=== PATIENT | male | born 1950 | race Caucasian/White ===

== ENCOUNTER → 2018-05-17 10:55 | Outpatient (CLI) | payer MEDICARE, OTHER, SELFPAY ==
--- NOTE | 2018-05-17 | DI.CT.S_ITS ---
PROCEDURE: CT ABDOMEN WWO PELVIS W INDICATIONS: ABNORMAL CYST ON LIVER TECHNIQUE: After the administration of oral contrast, 5 mm thick sections acquired from the diaphragms to the iliac crests. After the administration of intravenous contrast, 5 mm thick sections acquired from the diaphragms to the symphysis. 5 mm thick coronal and sagittal reformats were acquired. For radiation dose reduction, the following was used: automated exposure control, adjustment of mA and/or kV according to patient size. COMPARISON: Outside Facility, , CT ABDOMEN/PELVIS WITH CONTRAST, 03/25/2018, 12:19. FINDINGS: Image quality: Excellent. ABDOMEN: Lung bases: Lung bases are clear except for mild atelectasis at each lung base posteriorly, right slightly greater than left.. Heart size is normal. Solid organs: Liver is normal in size and enhancement, and there has been resolution of the scattered subcentimeter hypodensities within the hepatic parenchyma with reference to the outside comparison CT scan from 03/25/18. There is a single identified water density subcentimeter cyst at the anterior right hepatic segment inferiorly. No solid hepatic mass lesion is found. Gallbladder has been previously resected. Biliary system is non-dilated. Pancreas enhances normally. Spleen is normal in size and enhancement. No adrenal nodules. Both kidneys are normal in size. No hydronephrosis or nephrolithiasis. Bowel and peritoneum: Stomach, small and large bowel loops are normal in caliber and wall thickness. No free fluid or air. Nodes and vessels: No retroperitoneal or mesenteric adenopathy by size criteria. Aorta and inferior vena are normal in caliber. Miscellaneous: No ventral hernias. PELVIS: Genitourinary: Bladder wall thickness is normal. Miscellaneous: No inguinal hernias or adenopathy. The appendix is prominent in transverse dimension at 11 mm, previously having measured at 13 mm. Bones: No suspicious bony lesions. No vertebral body compression fractures. IMPRESSION: 1. The liver parenchyma previously in February of this year had shown small scattered subcentimeter hypodensities that measured higher than water in radiodensity, scattered through the liver parenchyma, but those have resolved. This presumably reflective of an inflammatory process/infection at time of prior CT scanning. 2. There is a single subcentimeter cyst measuring water density at the inferior aspect of the right anterior hepatic segment. No solid hepatic lesion is found. 3. Prior cholecystectomy. Incidental note is made of the appendix measuring up to 11 mm in maximal axial dimension, previously having measured 13 mm in transverse dimension in February of this year. No appendiceal mass or retention of fluid within the appendix is seen and there is no adjacent inflammation along the appendiceal margins. Dictated by: Louie Ramos M.D. on 05/17/2018 at 12:31 Approved by: Louie Ramos M.D. on 05/17/2018 at 12:39
[2018-05-17 11:45] LABS: BUN Creatinine Ratio 18.2 (6-22); Blood Urea Nitrogen 20 mg/dL (9-20); Estimated Glomerular Filt Rate > 60.0 mL/min (>60)
== END ==
PROVIDERS: Visit Provider Internal Medicine
DX: K76.89 Other specified diseases of liver (principal); R93.2 Abnormal findings on diagnostic imaging of liver and biliary tract; Z90.49 Acquired absence of other specified parts of digestive tract
CPT/HCPCS: 36415; 74178; 82565; 84520; Q9967

== ENCOUNTER → 2018-07-20 08:20 | Outpatient (CLI) | payer MEDICARE, OTHER, SELFPAY ==
[2018-07-20 10:06] LABS: Alanine Aminotransferase 42 IU/L (21-72); Albumin 4.3 g/dL (3.5-5.0); Albumin Globulin Ratio 1.5 (1.0-2.8); Alkaline Phosphatase 88 U/L (38-126); Aspartate Aminotransferase 29 IU/L (17-59); BUN Creatinine Ratio 15.5 (6-22); Bilirubin Total 0.7 mg/dL (0.2-1.3); Blood Urea Nitrogen 17 mg/dL (9-20); Calcium 9.5 mg/dL (8.4-10.2); Carbon Dioxide 25 mmol/L (22-32); Chloride 107 mmol/L (98-107); Cholesterol 137 mg/dL (140-199); Estimated Glomerular Filt Rate > 60.0 mL/min (>60); Globulin 2.9 g/dL (1.7-4.1); Glucose 99 mg/dL (80-110); HDL Cholesterol 46 mg/dL (40-60); HEMOLYSIS < 15 (0-50); LDL Cholesterol Calculated 65 mg/dL (<100); Potassium 4.4 mmol/L (3.4-5.1); Sodium 144 mmol/L (137-145); Total Protein 7.2 g/dL (6.3-8.2); Triglycerides 131 mg/dL (35-150)
== END ==
PROVIDERS: PCP Internal Medicine; Visit Provider Internal Medicine Cardiovascular Disease
DX: E78.5 Hyperlipidemia, unspecified (principal)
CPT/HCPCS: 36415; 80053; 80061

== ENCOUNTER → 2019-04-25 07:59 | Outpatient (CLI) | payer MEDICARE, OTHER, SELFPAY ==
[2019-04-25 09:46] LABS: Alanine Aminotransferase 24 IU/L (21-72); Albumin 4.3 g/dL (3.5-5.0); Albumin Globulin Ratio 1.3 (1.0-2.8); Alkaline Phosphatase 90 U/L (38-126); Aspartate Aminotransferase 28 IU/L (17-59); BUN Creatinine Ratio 17.3 (6-22); Bilirubin Total 0.8 mg/dL (0.2-1.3); Blood Urea Nitrogen 19 mg/dL (9-20); Calcium 9.9 mg/dL (8.4-10.2); Carbon Dioxide 26 mmol/L (22-32); Chloride 104 mmol/L (98-107); Cholesterol 258 mg/dL (140-199); Estimated Glomerular Filt Rate > 60.0 mL/min (>60); Globulin 3.4 g/dL (1.7-4.1); Glucose 99 mg/dL (80-110); HDL Cholesterol 39 mg/dL (40-60); HEMOLYSIS < 15 (0-50); LDL Cholesterol Calculated 172 mg/dL (<100); Potassium 4.5 mmol/L (3.4-5.1); Sodium 140 mmol/L (137-145); Total Protein 7.7 g/dL (6.3-8.2); Triglycerides 236 mg/dL (35-150)
[2019-04-25 10:31] LABS: Hep C Virus Ab w/Reflex Quant NEGATIVE s/c (NEGATIVE)
== END ==
PROVIDERS: PCP Internal Medicine; Visit Provider Internal Medicine
DX: I25.10 Atherosclerotic heart disease of native coronary artery without angina pectoris (principal); E78.00 Pure hypercholesterolemia, unspecified
CPT/HCPCS: 36415; 80053; 80061; 86803

== ENCOUNTER → 2019-06-27 11:19 | Outpatient (CLI) | payer MEDICARE, OTHER, SELFPAY ==
--- NOTE | 2019-06-27 | DI.US.S_ITS ---
PROCEDURE: US CAROTID DOPPLER BI INDICATIONS: OCCLUSION/STENOSIS OF CAROTID ARTERIES TECHNIQUE: Color and pulse Doppler interrogation was performed of both carotid systems, with image documentation and velocity measurements. COMPARISON: [facility], CT, CT ABDOMEN WWO PELVIS W, 05/17/2018, 11:59. FINDINGS: Stenosis calculations are based on SRU (Society of Radiologists in Ultrasound) criteria. Right side: Brachial blood pressure: 131/78 mm Hg. Common carotid artery peak systolic velocity: 99 cm/sec. Internal carotid artery peak systolic velocity: 88 cm/sec. Internal carotid artery end diastolic velocity: 29 cm/sec. External carotid artery peak systolic velocity: 97 cm/sec. ICA/CCA peak systolic ratio: 0.89. Cabrera scale imaging description: Minimal plaquing Percent internal carotid artery stenosis: Less than 50%. Vertebral artery: Flow direction is antegrade. Left side: Brachial blood pressure: 138/76 mm Hg. Common carotid artery peak systolic velocity: 88 cm/sec. Internal carotid artery peak systolic velocity: 77 cm/sec. Internal carotid artery end diastolic velocity: 13 cm/sec. External carotid artery peak systolic velocity: 98 cm/sec. ICA/CCA peak systolic ratio: 0.87. Cabrera scale imaging description: Minimal plaquing Percent internal carotid artery stenosis: Less than 50%. Vertebral artery: Flow direction is antegrade. IMPRESSION: Less than 50% internal carotid artery stenosis bilaterally. Dictated by: Renetta Chung M.D. on 06/27/2019 at 12:15 Approved by: Renetta Chung M.D. on 06/27/2019 at 12:19
== END ==
PROVIDERS: PCP Internal Medicine; Visit Provider Internal Medicine Cardiovascular Disease
DX: I65.23 Occlusion and stenosis of bilateral carotid arteries (principal)
CPT/HCPCS: 93880

== ENCOUNTER → 2019-08-02 08:00 | Outpatient (CLI) | payer MEDICARE, OTHER, SELFPAY ==
[2019-08-02 10:01] LABS: Cholesterol 283 mg/dL (140-199); HDL Cholesterol 39 mg/dL (40-60); LDL Cholesterol Calculated 190 mg/dL (<100); Triglycerides 269 mg/dL (35-150)
== END ==
PROVIDERS: PCP Internal Medicine; Visit Provider Internal Medicine Cardiovascular Disease
DX: I10 Essential (primary) hypertension (principal)
CPT/HCPCS: 36415; 80061

== ENCOUNTER → 2019-10-18 08:47 | Outpatient (CLI) | payer MEDICARE, OTHER, SELFPAY ==
[2019-10-18 10:11] LABS: Alanine Aminotransferase 24 IU/L (<50); Albumin 4.4 g/dL (3.5-5.0); Albumin Globulin Ratio 1.4 (1.0-2.8); Alkaline Phosphatase 97 U/L (38-126); Aspartate Aminotransferase 29 IU/L (17-59); BUN Creatinine Ratio 19.1 (6-22); Bilirubin Total 0.7 mg/dL (0.2-1.3); Blood Urea Nitrogen 21 mg/dL (9-20); Calcium 10.1 mg/dL (8.4-10.2); Carbon Dioxide 27 mmol/L (22-32); Chloride 105 mmol/L (98-107); Cholesterol 149 mg/dL (140-199); Estimated Glomerular Filt Rate > 60.0 mL/min (>60); Globulin 3.2 g/dL (1.7-4.1); Glucose 103 mg/dL (80-110); HDL Cholesterol 42 mg/dL (40-60); HEMOLYSIS < 15 (0-50); LDL Cholesterol Calculated 74 mg/dL (<100); Potassium 4.7 mmol/L (3.4-5.1); Sodium 140 mmol/L (137-145); Total Protein 7.6 g/dL (6.3-8.2); Triglycerides 164 mg/dL (35-150)
== END ==
PROVIDERS: PCP Internal Medicine; Referring Provider Internal Medicine Cardiovascular Disease; Visit Provider Internal Medicine Cardiovascular Disease
DX: I10 Essential (primary) hypertension (principal)
CPT/HCPCS: 36415; 80053; 80061

== ENCOUNTER → 2019-11-27 08:55 | Outpatient (CLI) | payer MEDICARE, OTHER, SELFPAY ==
--- NOTE | 2019-11-27 | DI.MRI.S_ITS ---
PROCEDURE: MR LUMBAR SPINE WO CON INDICATIONS: Low back pain TECHNIQUE: Noncontrast sagittal T1 spin echo and T2 fast echo, sagittal STIR, axial T1 and T2 fast spin echo through the lumbar spine. Axial and oblique coronal T1 spin echo and STIR through the sacrum. In cases with scoliosis, additional coronal T2 fast spin echo may be performed. COMPARISON: [facility], CT, CT ABDOMEN WWO PELVIS W, 05/17/2018, 11:59. Outside Facility, RG, CT ABDOMEN/PELVIS WITH CONTRAST, 03/25/2018, 12:19. [facility], CR, L-SPINE 2-3 VIEWS, 12/03/2017, 12:15. FINDINGS: Image quality: Excellent. Alignment and Curvature: There is normal bony alignment. Bone Marrow: Marrow is of normal overall signal. No acute vertebral body compression fractures. No sacral fractures. Spinal Cord: Conus medullaris terminates at the L1 level. Visualized cord demonstrates normal signal and size. Paraspinous Soft Tissues: No paravertebral masses. T12-L1: Mild loss of disc height is seen. Loss of disc signal is seen. No significant neural foraminal or central canal narrowing can be seen. L1-L2: Mild loss of disc height is seen. Loss of disc signal is seen. No significant neural foraminal or central canal narrowing can be seen. L2-L3: Mild loss of disc height is seen. Loss of disc signal is seen. Olio-wv-whmwydgk disc bulge is seen, which is eccentric to the right. There is a central disc protrusion. A chronic appearing Schmorl's node can be seen along the posterior aspect of the L2 vertebral body. Mild facet joint hypertrophy is seen. There is at least moderate left-sided and moderate right-sided neural foraminal narrowing seen. Moderate central canal narrowing is seen. L3-L4: Moderate loss of disc height is seen. Loss of disc signal is seen. Moderate disc bulge is seen, which is eccentric to the left. A central disc protrusion can be seen. Mild facet joint hypertrophy is seen. There is moderate right-sided and moderate to severe left-sided neural foraminal narrowing seen. There is a degree of compression seen upon the exiting left L3 nerve root. At least moderate central canal narrowing is seen. L4-L5: Moderate loss of disc height is seen. Loss of disc signal is seen. A remote Schmorl's node can be seen along the posterior aspect of the inferior endplate of L4, as on series 3 image 9. Moderate disc bulge is seen, which is eccentric to the right. There is a central/left disc extrusion seen, with superior migration of the disc material, as on series 2 image 11. Moderate facet hypertrophy is seen, with associated moderate hypertrophy of the ligamentum flavum. Fluid is seen within the facet joints themselves. Moderate to severe bilateral neural foraminal narrowing is seen, right worse than left. There is a degree of compression seen upon the exiting nerve roots. Moderate to severe central canal narrowing is seen. L5-S1: Moderate loss of disc height is seen. Loss of disc signal is seen. A moderate disc bulge is seen. Bcsw-xc-robrbigg facet hypertrophy is seen. There is moderate to severe bilateral neural foraminal narrowing seen, right worse than left. There is a degree of compression seen upon the exiting nerve roots. Mild central canal narrowing is seen. Sacrum: Fatty metaplasia can be seen involving the sacrum. Sacral neural foramina appear normal throughout. Superior to the piriformis muscles, the pre-plexal structures appear normal, including the lumbosacral trunk and S1 root. Just anterior to the piriformis muscles, the sacral plexus proper demonstrates normal morphology (lumbosacral trunk, S1 to S3 nerve roots). Inferior to the piriformis muscles, the sciatic nerves appear normal. IMPRESSION: Multiple levels of lumbar spine degenerative change are seen, which are overall most prominent at L4-L5 level, where there is a central/left disc extrusion seen. Moderate to severe bilateral neural foraminal narrowing can be seen at L4-L5 and at L5-S1. No significant sacral abnormality is seen. Dictated by: John Saavedra M.D. on 11/27/2019 at 9:43 Approved by: John Saavedra M.D. on 11/27/2019 at 9:50
== END ==
PROVIDERS: PCP Internal Medicine; Referring Provider Internal Medicine; Visit Provider Physician Assistant
DX: M47.816 Spondylosis without myelopathy or radiculopathy, lumbar region (principal); M51.26 Other intervertebral disc displacement, lumbar region; M48.061 Spinal stenosis, lumbar region without neurogenic claudication; M48.07 Spinal stenosis, lumbosacral region
CPT/HCPCS: 72148

== ENCOUNTER → 2020-01-12 11:37 | Outpatient (CLI) | payer MEDICARE, OTHER, SELFPAY ==
[2020-01-12 12:20] LABS: Add Manual Diff / Slide Review NO; Basophils Absolute Auto 100 /uL (0-100); Eosinophils Absolute Auto 400 /uL (0-450); Eosinophils Percent Auto 4.3 % (2-4); Hematocrit 47.3 % (41-53); Hemoglobin 15.9 g/dL (13.5-17.5); Lymphocytes Absolute Auto 2600 /uL (1100-4500); Lymphocytes Percent Auto 27.4 % (25-40); Mean Corpuscular HGB Conc 33.6 % (30-36); Mean Corpuscular Hemoglobin 29.8 PG (26-34); Mean Corpuscular Volume 88.7 fL (80-100); Monocytes Absolute Auto 700 /uL (0-900); Monocytes Percent Auto 7.5 % (3-14); Neutrophils Absolute Auto 5600 /uL (1500-7000); Neutrophils Percent Auto 59.8 % (50-75); Platelet Count 213 X10^3/uL (150-400); Red Blood Cell Count 5.34 X10^6/uL (4.5-5.9); Red Cell Distribution Width 14.9 % (11.6-14.8); White Blood Cell Count 9.4 X10^3/uL (4.5-11.0)
[2020-01-12 12:27] LABS: INR 2.8 (0.9-1.3); Prothrombin Time 32.2 SECONDS (10.1-12.7)
[2020-01-12 12:30] LABS: PTT Partial Thromboplastin Tim 48 SECONDS (26.4-36.2)
[2020-01-12 12:35] LABS: Alanine Aminotransferase 22 IU/L (<50); Albumin 4.5 g/dL (3.5-5.0); Albumin Globulin Ratio 1.4 (1.0-2.8); Alkaline Phosphatase 86 U/L (38-126); Aspartate Aminotransferase 27 IU/L (17-59); BUN Creatinine Ratio 20.4 (6-22); Bilirubin Total 0.8 mg/dL (0.2-1.3); Blood Urea Nitrogen 23 mg/dL (9-20); Calcium 10.2 mg/dL (8.4-10.2); Carbon Dioxide 28 mmol/L (22-32); Chloride 102 mmol/L (98-107); Estimated Glomerular Filt Rate > 60.0 mL/min (>60); Globulin 3.3 g/dL (1.7-4.1); Glucose 91 mg/dL (80-110); HEMOLYSIS < 15 (0-50); Potassium 4.3 mmol/L (3.4-5.1); Sodium 138 mmol/L (137-145); Total Protein 7.8 g/dL (6.3-8.2)
== END ==
PROVIDERS: PCP Internal Medicine; Referring Provider Internal Medicine; Visit Provider Internal Medicine
DX: Z01.818 Encounter for other preprocedural examination (principal); M51.26 Other intervertebral disc displacement, lumbar region
CPT/HCPCS: 36415; 80053; 85025; 85610; 85730

== ENCOUNTER → 2020-01-21 09:54 | Outpatient (CLI) | payer MEDICARE, OTHER, SELFPAY | PROVIDERS: PCP Internal Medicine; Visit Provider Physician Assistant | DX: Z01.818 Encounter for other preprocedural examination (principal) | CPT/HCPCS: 87797 ==

== ENCOUNTER → 2020-01-23 09:09 | Outpatient (CLI) | payer MEDICARE, OTHER, SELFPAY ==
[2020-01-24 09:51] LABS: COVID19 Sendout Not Detected (Not Detect)
== END ==
PROVIDERS: PCP Internal Medicine; Visit Provider Registered Nurse
DX: Z01.818 Encounter for other preprocedural examination (principal)
CPT/HCPCS: 87635

== ENCOUNTER → 2020-03-13 10:57 | Outpatient (CLI) | payer MEDICARE, OTHER, SELFPAY ==
[2020-03-13 13:58] LABS: Alanine Aminotransferase 18 IU/L (<50); Albumin 3.8 g/dL (3.5-5.0); Albumin Globulin Ratio 1.5 (1.0-2.8); Alkaline Phosphatase 73 U/L (38-126); Aspartate Aminotransferase 26 IU/L (17-59); Bilirubin Total 0.7 mg/dL (0.2-1.3); Blood Urea Nitrogen 26 mg/dL (9-20); Calcium 10.1 mg/dL (8.4-10.2); Carbon Dioxide 28 mmol/L (22-32); Chloride 104 mmol/L (98-107); Cholesterol 141 mg/dL (140-199); Estimated Glomerular Filt Rate > 60.0 mL/min (>60); Globulin 2.5 g/dL (1.7-4.1); Glucose 82 mg/dL (80-110); HDL Cholesterol 43 mg/dL (40-60); HEMOLYSIS < 15 (0-50); LDL Cholesterol Calculated 57 mg/dL (<100); Potassium 3.8 mmol/L (3.4-5.1); Sodium 137 mmol/L (137-145); Total Protein 6.3 g/dL (6.3-8.2); Triglycerides 205 mg/dL (35-150)
== END ==
PROVIDERS: Family Provider Internal Medicine; PCP Internal Medicine; Referring Provider Internal Medicine Cardiovascular Disease; Visit Provider Internal Medicine Cardiovascular Disease
DX: E78.5 Hyperlipidemia, unspecified (principal); I10 Essential (primary) hypertension
CPT/HCPCS: 36415; 80053; 80061

== ENCOUNTER → 2020-03-25 06:51 | Outpatient (CLI) | payer MEDICARE, OTHER, SELFPAY ==
--- NOTE | 2020-03-25 | DI.MRI.S_ITS ---
PROCEDURE: MR THORACIC SPINE WO CON INDICATIONS: Radiculopathy, lumbar region TECHNIQUE: Noncontrast sagittal T1 spine echo and T2 fast spin echo, sagittal STIR, axial T1 and T2 fast spin echo through the thoracic spine. COMPARISON: None. FINDINGS: Image quality: Excellent. Alignment and Curvature: There is normal bony alignment except for mild levoscoliosis centered at the junction of the upper and middle thirds of the thoracic spine. Note is made of mild kyphosis secondary to chronic degenerative change and anterior mild disc height reduction and vertebral body reduction at C6 and C7. Posterior projecting disc bulging is present, partially visualized, at these 2 lower cervical levels open (C6-7 and C7-T1, left greater than right and most prominent at C6-C7). Bone Marrow: Marrow is of normal overall signal. No acute vertebral body compression fractures. Spinal Cord: Visualized spinal cord is normal in size and signal. Paraspinous Soft Tissues: No paravertebral masses. Miscellaneous: On axial images, central canal and foramina appear widely patent at all scanned levels. The degenerative disc disease is most prominent along the thoracic spine at the T10-T11 level but without focal associated nerve root impingement. IMPRESSION: Mild convex leftward scoliosis centered at the junction of the upper and middle thirds of the thoracic spine. [id number] degenerative disc disease is most prominent at T10-T11, but without associated focal nerve root impingement. Note is made of moderate degenerative disc disease with posterior transverse disc bulging partially visualized at C6-7 and C7-T1 and with focal prominence on the left producing focal left anterior spinal stenosis at these 2 levels, most prominent at C6-C7. Anterior spinal stenosis appears present at those levels to the degree that asymmetric left-sided symptomatology may be associated. Please correlate clinically. Dictated by: Louie Ramos M.D. on 03/25/2020 at 10:33 Approved by: Louie Ramos M.D. on 03/25/2020 at 10:50
--- NOTE | 2020-03-25 | DI.MRI.S_ITS ---
PROCEDURE: MR CERVICAL SPINE WO CON INDICATIONS: Radiculopathy, lumbar region TECHNIQUE: Noncontrast sagittal T1 spin echo and T2 fast spin echo, sagittal STIR, foraminal oblique sagittal T2 fast spin echo, and axial gradient echo or T2 fast spin echo through the cervical spine. COMPARISON: None. FINDINGS: Image quality: Excellent. Alignment and Curvature: Straightening of the normal lordotic curvature. Multilevel degenerative endplate sclerosis and spurring. Diffuse facet arthropathy. T2 hyperintensity is seen within the cord at the level of C4-C5. No cerebellar tonsillar herniation. Paraspinous Soft Tissues: No paravertebral masses. Prevertebral soft tissues are normal in thickness. C2-C3: No canal stenosis. Mild bilateral foraminal narrowing with suggestion of slight nerve root compression on both sides. C3-C4: Minimal canal narrowing. Severe bilateral foraminal stenosis with nerve root compression on both sides. C4-C5: Mild canal narrowing which is predominantly left-sided, and severe bilateral foraminal stenoses on both sides with nerve root compression. C5-C6: Mild canal narrowing which is slightly left greater than right. Severe bilateral foraminal stenosis with nerve root compression. C6-C7: Moderate canal stenosis which is left-sided in nature. Severe right foraminal narrowing with nerve root compression, and mild left foraminal narrowing.. C7-T1: Mild canal narrowing, left slightly greater than right. Mild right foraminal stenosis with nerve root compression. Severe left foraminal stenosis with nerve root compression. IMPRESSION: Moderate C6-7 canal stenosis, predominantly left-sided. Diffuse bilateral foraminal narrowing as detailed above by spinal level. Age-indeterminate, nonspecific cord signal changes at C4-C5 which could be chronic myelomalacia versus other inflammatory or demyelinating processes. Dictated by: Lenny Lorenz M.D. on 03/25/2020 at 11:10 Approved by: Lenny Lorenz M.D. on 03/25/2020 at 11:17
== END ==
PROVIDERS: Family Provider Internal Medicine; PCP Internal Medicine; Referring Provider Orthopaedic Surgery; Visit Provider Orthopaedic Surgery
DX: M51.14 Intervertebral disc disorders with radiculopathy, thoracic region (principal); M48.04 Spinal stenosis, thoracic region; M48.02 Spinal stenosis, cervical region; M41.84 Other forms of scoliosis, thoracic region; R29.898 Other symptoms and signs involving the musculoskeletal system
CPT/HCPCS: 72141; 72146

== ENCOUNTER → 2020-10-17 09:21 | Outpatient (CLI) | payer MEDICARE, OTHER, SELFPAY ==
[2020-10-17 10:19] LABS: Add Manual Diff / Slide Review NO; Basophils Absolute Auto 100 /uL (0-100); Basophils Percent Auto 1.4 % (0-2); Eosinophils Absolute Auto 300 /uL (0-450); Eosinophils Percent Auto 4.4 % (2-4); Hematocrit 47.7 % (41-53); Hemoglobin 16.2 g/dL (13.5-17.5); Lymphocytes Absolute Auto 2400 /uL (1100-4500); Lymphocytes Percent Auto 33.4 % (25-40); Mean Corpuscular HGB Conc 33.9 % (30-36); Mean Corpuscular Hemoglobin 29.7 PG (26-34); Mean Corpuscular Volume 87.6 fL (80-100); Monocytes Absolute Auto 700 /uL (0-900); Monocytes Percent Auto 9.7 % (3-14); Neutrophils Absolute Auto 3700 /uL (1500-7000); Neutrophils Percent Auto 51.1 % (50-75); Platelet Count 185 X10^3/uL (150-400); Red Blood Cell Count 5.45 X10^6/uL (4.5-5.9); Red Cell Distribution Width 14.5 % (11.6-14.8); White Blood Cell Count 7.2 X10^3/uL (4.5-11.0)
[2020-10-17 11:01] LABS: Alanine Aminotransferase 24 IU/L (<50); Albumin 4.1 g/dL (3.5-5.0); Albumin Globulin Ratio 1.2 (1.0-2.8); Alkaline Phosphatase 123 U/L (38-126); Aspartate Aminotransferase 29 IU/L (17-59); BUN Creatinine Ratio 20.5 (6-22); Bilirubin Total 0.7 mg/dL (0.2-1.3); Bilirubin Unconjugated 0.6 mg/dL (0.0-1.1); Blood Urea Nitrogen 26 mg/dL (9-20); Calcium 9.9 mg/dL (8.4-10.2); Carbon Dioxide 29 mmol/L (22-32); Chloride 104 mmol/L (98-107); Cholesterol 222 mg/dL (140-199); Estimated Glomerular Filt Rate 56.1 mL/min (>60); Globulin 3.5 g/dL (1.7-4.1); Glucose 111 mg/dL (80-110); HDL Cholesterol 37 mg/dL (40-60); HEMOLYSIS 21 (0-50); LDL Cholesterol Calculated 128 mg/dL (<100); Potassium 4.8 mmol/L (3.4-5.1); Sodium 138 mmol/L (137-145); Total Protein 7.6 g/dL (6.3-8.2); Triglycerides 287 mg/dL (35-150)
== END ==
PROVIDERS: Family Provider Internal Medicine; PCP Family Medicine; Referring Provider Internal Medicine Cardiovascular Disease; Visit Provider Internal Medicine Cardiovascular Disease
DX: I25.810 Atherosclerosis of coronary artery bypass graft(s) without angina pectoris (principal); I65.23 Occlusion and stenosis of bilateral carotid arteries; E78.5 Hyperlipidemia, unspecified; I10 Essential (primary) hypertension; I48.0 Paroxysmal atrial fibrillation
CPT/HCPCS: 36415; 80053; 80061; 80076; 85025

== ENCOUNTER → 2020-12-11 12:41 | Outpatient (CLI) | payer MEDICARE, OTHER, SELFPAY ==
--- NOTE | 2020-12-11 12:51 | DIET.PN ---
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 Pt had back surgery a year ago resulting in guillan burre limiting use of legs. Pt has had pulmonary embolisms so is on coumadin and avoiding green vegetables. Pt has intolerance to statins (muscle pain and weakness). Pt's is morbidly obese c mobility issues (uses two canes) and per pt needs to okay any dietary changes they make as a couple. Pts wants easiest possible, open a package, [id number] items. Pt is lactose-intolerant but eats some aged cheeses without sx. 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 was working out 2-3x/w but now isn't (elliptical, cable weights), does PT twice per week c Fidel Ho here at and feels like it is helping. RD Impression: Pt had big life change a year ago as he went off statin, had back surgeries c complications including now walking c two canes. Pt went from 2-3d/w exercise to none. Pt and his do not cook so rely on fast food and take out for 1-3 meals per day. Pt has gained 30# over the past year as a result and desires help with cholesterol management and weight loss. Nutrition Diagnosis: abnormal weight gain r/t undesirable food choices and physical inactivity aeb pt has gained 30# over past 1y, pt limited mobility after back surgery and complications, BMI 35.6, pt reliant on take out and ultraprocessed foods. Interventions: 1. Educated pt on role of soluble fiber on weight and cholesterol management. Provided pt c fiber content of foods handout with goal of 30g/d. 2. Discussed role of ultraprocessed foods in weight gain and inflammation. Encouraged pt to limit if not eliminate ultraprocessed foods from diet. Pt has barriers to doing this as his shops. 3. Introduced pt to two meal delivery services [employer] and [employer] which deliver to our area. Encouraged pt to use these services for healthier, kcal controlled, higher fiber, preferential fat meals rather than relying on take out two to three times per day. 4. Provided pt c handout by called Managing Your Cholesterol Through Lifestyle Change. EER: 30g fiber daily Monitoring/Evaluations: pt will call to f/u
== END ==
PROVIDERS: Family Provider Internal Medicine; PCP Family Medicine; Referring Provider Family Medicine; Visit Provider Family Medicine
DX: E66.9 Obesity, unspecified (principal); E78.00 Pure hypercholesterolemia, unspecified; G61.0 Guillain-Barre syndrome; Z86.711 Personal history of pulmonary embolism; Z71.3 Dietary counseling and surveillance; Z79.01 Long term (current) use of anticoagulants; Z68.35 Body mass index [BMI] 35.0-35.9, adult
CPT/HCPCS: 97802

== ENCOUNTER → 2020-12-20 08:40 | Outpatient (CLI) | payer MEDICARE, OTHER, SELFPAY ==
[2020-12-20 10:39] LABS: BUN Creatinine Ratio 18.6 (6-22); Blood Urea Nitrogen 22 mg/dL (9-20); Calcium 9.9 mg/dL (8.4-10.2); Carbon Dioxide 25 mmol/L (22-32); Chloride 105 mmol/L (98-107); Estimated Glomerular Filt Rate > 60.0 mL/min (>60); Glucose 102 mg/dL (80-110); HEMOLYSIS < 15 (0-50); Potassium 4.5 mmol/L (3.4-5.1); Sodium 139 mmol/L (137-145)
== END ==
PROVIDERS: Family Provider Internal Medicine; PCP Family Medicine; Referring Provider Internal Medicine; Visit Provider Internal Medicine
DX: I25.10 Atherosclerotic heart disease of native coronary artery without angina pectoris (principal); M15.0 Primary generalized (osteo)arthritis
CPT/HCPCS: 36415; 80048

== ENCOUNTER 2021-01-09 09:45 | Outpatient (RCR) | payer MEDICARE, OTHER, SELFPAY ==
--- NOTE | 2020-03-18 15:15 | PT.OIE ---
Current Diagnoses Foot drop, right foot (03/18/20) Stiffness of unspecified joint, not elsewhere classified (03/18/20) Stiffness of right hip, not elsewhere classified (03/18/20) Stiffness of left hip, not elsewhere classified (03/18/20) Radiculopathy, lumbar region (03/18/20) Muscle weakness (generalized) (03/18/20) Other abnormalities of gait and mobility (03/18/20) Visit Care Team Role Provider Type Robin Lee MD Family Provider Physician Primary Care Provider Specialty: Internal Medicine Address: [address] [place] [address], [id number] Email: [email or web address] Shaka Reeves MD Attending Provider Non-Staff Referring Provider Specialty: Medical Address: [address] [place] [address], [phone] Email: Physical Therapy Initial Evaluation PT-OP-A Visit Information Start: 03/18/20 17:40 Freq: Status: Active Protocol: Document 03/18/20 14:30 DCW (Rec: 03/18/20 17:52 DCW [id number]) Out-Patient Physical Therapy Visit Information Visit Information Visit Type Initial Evaluation Visit Start Time 14:30 Visit Stop Time 15:15 Total Visit Minutes 45 Visit Number 1 Number of MACHINE CEMENTER AND FOLDER Visits 0 Evaluation Information Evaluation Date 03/18/20 PT-OP-B Current Condition Start: 03/18/20 17:40 Freq: Status: Active Protocol: Document 03/18/20 14:30 DCW (Rec: 03/18/20 17:52 DCW [id number]) Current Condition History of Current Condition Onset Date Eight weeks Current Complaints weakness, gait difficulty, LBP , decreased activity tolerance History of Current Condition Pt is a 69 year old male presenting eight weeks s/p L4- 5 microdiscectomy. Pt reports he has been experiencing low back pain for years, but about 5 months ago, the pain began to rapidly accelerate, and he was found to have ruptured his L4-5 disc. Unfortunately, due to Covid-19 shutdowns, he was unable to get in to have anything done with it, until he finally underwent a microdiscectomy eight weeks ago. Pt reports that prior to the surgery, he was barely moving around, and feels like he has lost a lot of strength and mobility. Pt reports that he had been experiencing weakness and radicular pain down his left leg prior to surgery, however that has improved, and he now has significant right-sided leg weakness. Pt reports he did not use any assistive device prior to his disc rupture, but has pretty much been using a 4WW ever since. Pt is beginning to notice shoulder pain because he is bearing so much weight through his upper extremities. Reports he currently gets fatigued just walking across the room. Treatment Goals Patient/Caregiver Goals I really want to regain strength in my right leg. PT-OP-C Subjective Start: 03/18/20 17:40 Freq: Status: Active Protocol: Document 03/18/20 14:30 DCW (Rec: 03/18/20 17:56 DCW [id number]) OP-PT Subjective Patient Comments Patient Comments I think my walker might be too short. Patient Questionnaires Oswestry Low Back Index Oswestry Score 34/45 = 75.5% OP-PT Pain Assessment Pain Assessment Grid Paper Pain Assessment Grid Completed Yes Location Lower Back Intensity 8 Scale Used Numeric (0 - 10) PT-OP-E Functional Tests Start: 03/18/20 17:40 Freq: Status: Active Protocol: Document 03/18/20 14:30 DCW (Rec: 03/19/20 09:44 DCW [id number]) Functional Tests 2 Minute Walk Test Distance 178' Device Used 4WW Comments 1.43 ft/sec PT-OP-F Manual Assessment Start: 03/18/20 17:40 Freq: Status: Active Protocol: Document 03/18/20 14:30 DCW (Rec: 03/19/20 09:44 DCW [id number]) Manual Assessments Soft Tissue Assessment Soft Tissue Mobility Assessment Hypertonia and tenderness to palpation 2/4: Pain with wincing along bilateral piriformis, bilateral hamstring, bilateral psoas. Joint Mobility Assessment Joint Mobility Assessment Minimal mobility through lumbar spine, majority of flexion movement comes from hips. PT-OP-G Mobility & Gait Start: 03/18/20 17:40 Freq: Status: Active Protocol: Document 03/18/20 14:30 DCW (Rec: 03/19/20 09:44 DCW [id number]) OP Gait Assessment Gait Gait Assistance Required: Standby Assistance Distance (Feet) 178 Able to Maintain Weight Bearing Status Yes During Gait Assistive Devices Assistive Device Gait Belt,4 Wheeled Walker Orthotic/Prosthetic Devices or Brace: No Gait Deviations General Gait Pattern Antalgic,Ataxic,Decreased Stride Length,Decreased Feet Clearance,Flexed Trunk,Wide Based Gait Factors Limiting Gait Function Factors Limiting Gait Function Decreased Activity Tolerance, Decreased Strength,Limited Range of Motion,Pain PT-OP-K Range of Motion Start: 03/18/20 17:40 Freq: Status: Active Protocol: Document 03/18/20 14:30 DCW (Rec: 03/19/20 09:44 DCW [id number]) Lumbar Spine Range of Motion Lumbar Spine Active Degrees Testing Position Standing Flexion 20 Extension 10 ROM Limitations Soft Tissue Tightness,Bony Restriction,Muscle Weakness, Muscle Tone,Pain Comments When attempting to stand upright, pt is still flexed forward 10?, and then despite appearing to have good forward flexion, his lumbar spine only flexes to 20?, and the remainder of the movement comes from his hip. PT-OP-M Strength Start: 03/18/20 17:40 Freq: Status: Active Protocol: Document 03/18/20 14:30 DCW (Rec: 03/19/20 17:21 DCW [id number]) Hip Strength Hip Manual Muscle Testing Right Flexion (L2) 3+ Fair+ Abduction 4 Good Adduction 4 Good Left Flexion (L2) 4+ Good+ Abduction 4+ Good+ Adduction 4+ Good+ Knee Strength Knee Manual Muscle Testing Right Flexion (S2) 4+ Good+ Extension (L3) 4+ Good+ Left Flexion (S2) 4+ Good+ Extension (L3) 4+ Good+ Ankle/Foot Strength Ankle and Foot Manual Muscle Testing Right Dorsiflexion (L4) 3+ Fair+ Plantarflexion (S1) 4 Good Left Dorsiflexion (L4) 4+ Good+ Plantarflexion (S1) 4+ Good+ PT-OP-Q Treatments Start: 03/18/20 17:40 Freq: Status: Active Protocol: Document 03/18/20 14:30 DCW (Rec: 03/19/20 17:40 DCW [id number]) Therapeutic Exercises Supine Exercises 1 Supine Exercise Name SLR Side right Sitting Exercises 2 Sitting Exercise Name Ankle DF Side right 1 Sitting Exercise Name Forward lumbar flexion stretch PT-OP-T Assessment and Plan Start: 03/18/20 17:40 Freq: Status: Active Protocol: Document 03/18/20 14:30 DCW (Rec: 03/19/20 17:40 DCW [id number]) Physical Therapy Assessment Rehab Potential Rehabilitation Potential Good Evaluation Complexity Number of Personal Factors/Comorbidities 1-2 Number of Body Systems Impaired 4 or More Clinical Presentation at Evaluation Stable Impairments Impairments Activity Tolerance,Balance, Functional Activities, Functional Mobility,Gait,ROM, Soft Tissue Mobility,Strength Goals Four Impairment Significant limitations in lumbar ROM (10?-20?) Fdc Goal (LTG) Lumbar ROM to improve to 0?-50 ? LTG Duration 05/20/20 Three Impairment Pt demonstrates right foot drop during gait Fdc Goal (LTG) Pt right ankle DF and hip flexion MMT to 4/5, to decrease risk for foot drop and improve gait quality LTG Duration 05/20/20 Two Impairment Pt ambulates 178' (1.43 ft/sec ) using a FWW during a Two Minute Walk Test Short Term Goal (STG) A gait speed less than 1.97 ft /sec has been shown to be a predictor of further functional decline in older adults. Pt to improve his 2 MWT distance to 237' to demonstrate a gate speed of greater than 1.97 ft/sec STG Duration 04/19/20 Fdc Goal (LTG) Pt to complete a six minute walk test with a distance greater than 600' to indicate improved activity tolerance LTG Duration 05/20/20 One Impairment Pt does not have an appropriate home exercise program Short Term Goal (STG) Pt to be independent and compliant with an appropriate HEP STG Duration 04/19/20 Assessment Summary Assessment Pt presents to skilled therapy eight weeks s/p L4-5 microdiscectomy. Pt exhibits decreased lumbar ROM, R LE weakness, poor posture during gait, decreased activity tolerance, R foot drop, and hypertonia in anterior/ posterior hip musculature. Some of pt's complaints, like gait posture and arm pain during gait, are due to a poor fitting 4WW which is far too low, unfortunately it is on its highest setting. Discussed with pt possibility of obtaining a larger walker. Pt' s foot drop results in occasionally tripping himself, however he is able to self correct every time so far. Pt should benefit from skilled therapy focused on decreasing tone of his piriformis, psoas, and hamstring, improving lumbar ROM, increasing R hip and ankle strength, and increasing speed and quality of his gait pattern. Physical Therapy Plan Frequency and Duration Frequency of Treatment 2x/Week Duration of Treatment 10 weeks Plan of Care Start Date 03/18/20 Plan of Care End Date 05/27/20 Therapeutic Interventions Therapeutic Interventions Balance Training,Gait Training ,Home Exercise Program,Joint Mobilizations,Manual Therapy, Neuromuscular Re-education, Patient/Caregiver Education, Self-Care/Home Management,Soft Tissue Mobilization, Therapeutic Activities, Therapeutic Exercises Modalities Cold Pack/Ice Massage,Electric Stimulation,Hot Packs, Ultrasound Next Visit Focus/Plan Next Note Type Treatment Note Next Visit Plan gentle lumbar stretching/ flexibility, hip/ankle strengthening, gait training
--- NOTE | 2020-03-18 15:15 | PT.OPPOC ---
Physical, Occupational & Speech Therapy At [facility] Current Diagnoses Foot drop, right foot (03/18/20) Stiffness of unspecified joint, not elsewhere classified (03/18/20) Stiffness of right hip, not elsewhere classified (03/18/20) Stiffness of left hip, not elsewhere classified (03/18/20) Radiculopathy, lumbar region (03/18/20) Muscle weakness (generalized) (03/18/20) Other abnormalities of gait and mobility (03/18/20) Visit Care Team Role Provider Type Robin Lee MD Family Provider Physician Primary Care Provider Specialty: Internal Medicine Address: [address] [place] [address], [phone] Email: [email or web address] Shaka Reeves MD Attending Provider Non-Staff Referring Provider Specialty: Medical Address: [address] [place] [address], [phone] Email: Plan Of Care PT-OP-T Assessment and Plan Start: 03/18/20 17:40 Freq: Status: Active Protocol: Document 03/18/20 14:30 DCW (Rec: 03/19/20 17:40 DCW [id number]) Physical Therapy Assessment Rehab Potential Rehabilitation Potential Good Evaluation Complexity Number of Personal Factors/Comorbidities 1-2 Number of Body Systems Impaired 4 or More Clinical Presentation at Evaluation Stable Impairments Impairments Activity Tolerance,Balance, Functional Activities, Functional Mobility,Gait,ROM, Soft Tissue Mobility,Strength Goals Four Impairment Significant limitations in lumbar ROM (10?-20?) Economic Consultant Goal (LTG) Lumbar ROM to improve to 0?-50 ? LTG Duration 05/20/20 Three Impairment Pt demonstrates right foot drop during gait Economic Consultant Goal (LTG) Pt right ankle DF and hip flexion MMT to 4/5, to decrease risk for foot drop and improve gait quality LTG Duration 05/20/20 Two Impairment Pt ambulates 178' (1.43 ft/sec ) using a FWW during a Two Minute Walk Test Short Term Goal (STG) A gait speed less than 1.97 ft /sec has been shown to be a predictor of further functional decline in older adults. Pt to improve his 2 MWT distance to 237' to demonstrate a gate speed of greater than 1.97 ft/sec STG Duration 04/19/20 Half-Way Goal (LTG) Pt to complete a six minute walk test with a distance greater than 600' to indicate improved activity tolerance LTG Duration 05/20/20 One Impairment Pt does not have an appropriate home exercise program Short Term Goal (STG) Pt to be independent and compliant with an appropriate HEP STG Duration 04/19/20 Assessment Summary Assessment Pt presents to skilled therapy eight weeks s/p L4-5 microdiscectomy. Pt exhibits decreased lumbar ROM, R LE weakness, poor posture during gait, decreased activity tolerance, R foot drop, and hypertonia in anterior/ posterior hip musculature. Some of pt's complaints, like gait posture and arm pain during gait, are due to a poor fitting 4WW which is far too low, unfortunately it is on its highest setting. Discussed with pt possibility of obtaining a larger walker. Pt' s foot drop results in occasionally tripping himself, however he is able to self correct every time so far. Pt should benefit from skilled therapy focused on decreasing tone of his piriformis, psoas, and hamstring, improving lumbar ROM, increasing R hip and ankle strength, and increasing speed and quality of his gait pattern. Physical Therapy Plan Frequency and Duration Frequency of Treatment 2x/Week Duration of Treatment 10 weeks Plan of Care Start Date 03/18/20 Plan of Care End Date 05/27/20 Therapeutic Interventions Therapeutic Interventions Balance Training,Gait Training ,Home Exercise Program,Joint Mobilizations,Manual Therapy, Neuromuscular Re-education, Patient/Caregiver Education, Self-Care/Home Management,Soft Tissue Mobilization, Therapeutic Activities, Therapeutic Exercises Modalities Cold Pack/Ice Massage,Electric Stimulation,Hot Packs, Ultrasound Next Visit Focus/Plan Next Note Type Treatment Note Next Visit Plan gentle lumbar stretching/ flexibility, hip/ankle strengthening, gait training Plan of Care Dates Plan of Care Start Date 03/18/20 Plan of Care End Date 05/27/20 Electronically Signed by: Micah Cowart, PT 03/19/20 [id number] Please Sign and Return: I have reviewed this Plan of Care and certify that the skilled therapy services above are required to meet the patient?s needs. Physician Signature Date Printed Name and Credentials Clinical Instructor Signature Printed Name and Credentials
--- NOTE | 2020-03-29 12:56 | PT.OTN ---
Current Diagnoses Foot drop, right foot (03/29/20) Stiffness of unspecified joint, not elsewhere classified (03/29/20) Stiffness of right hip, not elsewhere classified (03/29/20) Stiffness of left hip, not elsewhere classified (03/29/20) Radiculopathy, lumbar region (03/29/20) Muscle weakness (generalized) (03/29/20) Other abnormalities of gait and mobility (03/29/20) Physical Therapy Treatment Note PT-OP-A Visit Information Start: 03/18/20 17:40 Freq: Status: Active Protocol: Document 03/29/20 12:00 DCW (Rec: 03/29/20 12:56 DCW [id number]) Out-Patient Physical Therapy Visit Information Visit Information Visit Type Treatment Note Visit Start Time 12:00 Visit Stop Time 12:45 Total Visit Minutes 45 Visit Number 2 Number of WIRE GALVANIZER Visits 0 Evaluation Information Evaluation Date 03/18/20 PT-OP-B Current Condition Start: 03/18/20 17:40 Freq: Status: Active Protocol: Document 03/18/20 14:30 DCW (Rec: 03/18/20 17:52 DCW [id number]) Current Condition History of Current Condition Onset Date Eight weeks Current Complaints weakness, gait difficulty, LBP , decreased activity tolerance History of Current Condition Pt is a 69 year old male presenting eight weeks s/p L4- 5 microdiscectomy. Pt reports he has been experiencing low back pain for years, but about 5 months ago, the pain began to rapidly accelerate, and he was found to have ruptured his L4-5 disc. Unfortunately, due to Covid-19 shutdowns, he was unable to get in to have anything done with it, until he finally underwent a microdiscectomy eight weeks ago. Pt reports that prior to the surgery, he was barely moving around, and feels like he has lost a lot of strength and mobility. Pt reports that he had been experiencing weakness and radicular pain down his left leg prior to surgery, however that has improved, and he now has significant right-sided leg weakness. Pt reports he did not use any assistive device prior to his disc rupture, but has pretty much been using a 4WW ever since. Pt is beginning to notice shoulder pain because he is bearing so much weight through his upper extremities. Reports he currently gets fatigued just walking across the room. Treatment Goals Patient/Caregiver Goals I really want to regain strength in my right leg. PT-OP-C Subjective Start: 03/18/20 17:40 Freq: Status: Active Protocol: Document 03/29/20 12:00 DCW (Rec: 03/29/20 12:56 DCW [id number]) OP-PT Subjective Patient Comments Patient Comments Things are worsening. I can't even walk behind the rollator anymore, Pain in my sacrum is really limiting me. Pt scheduled to have EMG on Wednesday. Pain standing this morning almost dropped me to the ground. PT-OP-E Functional Tests Start: 03/18/20 17:40 Freq: Status: Active Protocol: Document 03/18/20 14:30 DCW (Rec: 03/19/20 09:44 DCW [id number]) Functional Tests 2 Minute Walk Test Distance 178' Device Used 4WW Comments 1.43 ft/sec PT-OP-F Manual Assessment Start: 03/18/20 17:40 Freq: Status: Active Protocol: Document 03/18/20 14:30 DCW (Rec: 03/19/20 09:44 DCW [id number]) Manual Assessments Soft Tissue Assessment Soft Tissue Mobility Assessment Hypertonia and tenderness to palpation 2/4: Pain with wincing along bilateral piriformis, bilateral hamstring, bilateral psoas. Joint Mobility Assessment Joint Mobility Assessment Minimal mobility through lumbar spine, majority of flexion movement comes from hips. PT-OP-G Mobility & Gait Start: 03/18/20 17:40 Freq: Status: Active Protocol: Document 03/18/20 14:30 DCW (Rec: 03/19/20 09:44 DCW [id number]) OP Gait Assessment Gait Gait Assistance Required: Standby Assistance Distance (Feet) 178 Able to Maintain Weight Bearing Status Yes During Gait Assistive Devices Assistive Device Gait Belt,4 Wheeled Walker Orthotic/Prosthetic Devices or Brace: No Gait Deviations General Gait Pattern Antalgic,Ataxic,Decreased Stride Length,Decreased Feet Clearance,Flexed Trunk,Wide Based Gait Factors Limiting Gait Function Factors Limiting Gait Function Decreased Activity Tolerance, Decreased Strength,Limited Range of Motion,Pain PT-OP-K Range of Motion Start: 03/18/20 17:40 Freq: Status: Active Protocol: Document 03/18/20 14:30 DCW (Rec: 03/19/20 09:44 DCW [id number]) Lumbar Spine Range of Motion Lumbar Spine Active Degrees Testing Position Standing Flexion 20 Extension 10 ROM Limitations Soft Tissue Tightness,Bony Restriction,Muscle Weakness, Muscle Tone,Pain Comments When attempting to stand upright, pt is still flexed forward 10?, and then despite appearing to have good forward flexion, his lumbar spine only flexes to 20?, and the remainder of the movement comes from his hip. PT-OP-M Strength Start: 03/18/20 17:40 Freq: Status: Active Protocol: Document 03/18/20 14:30 DCW (Rec: 03/19/20 17:21 DCW [id number]) Hip Strength Hip Manual Muscle Testing Right Flexion (L2) 3+ Fair+ Abduction 4 Good Adduction 4 Good Left Flexion (L2) 4+ Good+ Abduction 4+ Good+ Adduction 4+ Good+ Knee Strength Knee Manual Muscle Testing Right Flexion (S2) 4+ Good+ Extension (L3) 4+ Good+ Left Flexion (S2) 4+ Good+ Extension (L3) 4+ Good+ Ankle/Foot Strength Ankle and Foot Manual Muscle Testing Right Dorsiflexion (L4) 3+ Fair+ Plantarflexion (S1) 4 Good Left Dorsiflexion (L4) 4+ Good+ Plantarflexion (S1) 4+ Good+ PT-OP-Q Treatments Start: 03/18/20 17:40 Freq: Status: Active Protocol: Document 03/29/20 12:00 DCW (Rec: 03/29/20 12:56 DCW [id number]) Cardio Equipment Recumbent Stepper (Sci-Fit) Duration (Minutes) 4 Resistance 1 Seat Position W/C Gym Equipment Therapeutic Ball 1 Exercise Details Low Trunk Rotations Ball Size/Color Blue - 45 cm Body Position Supine Therapeutic Exercises Supine Exercises 3 Supine Exercise Name DF/PF Side bilateral Resistance Lv 2 2 Supine Exercise Name SAQ Side bilateral Resistance 9# Sidelying Exercises 3 Sidelying Exercise Name Reverse Clam Shell Side right Comments AROM 2 Sidelying Exercise Name Clamshell Side right 1 Sidelying Exercise Name Hip Abduction Side right Comments AAROM Sitting Exercises 3 Sitting Exercise Name LAQ Side bilateral Resistance 5# Standing Exercises 1 Standing Exercise Name Standing marching Equipment Used // bars PT-OP-T Assessment and Plan Start: 03/18/20 17:40 Freq: Status: Active Protocol: Document 03/29/20 12:00 DCW (Rec: 03/29/20 12:56 DCW [id number]) Physical Therapy Assessment Impairments Impairments Activity Tolerance,Balance, Functional Activities, Functional Mobility,Gait,ROM, Soft Tissue Mobility,Strength Goals Four Impairment Significant limitations in lumbar ROM (10?-20?) Retirement Goal (LTG) Lumbar ROM to improve to 0?-50 ? LTG Duration 05/20/20 Three Impairment Pt demonstrates right foot drop during gait Punch Press Feeder Goal (LTG) Pt right ankle DF and hip flexion MMT to 4/5, to decrease risk for foot drop and improve gait quality LTG Duration 05/20/20 Two Impairment Pt ambulates 178' (1.43 ft/sec ) using a FWW during a Two Minute Walk Test Short Term Goal (STG) A gait speed less than 1.97 ft /sec has been shown to be a predictor of further functional decline in older adults. Pt to improve his 2 MWT distance to 237' to demonstrate a gate speed of greater than 1.97 ft/sec STG Duration 04/19/20 Retirement Goal (LTG) Pt to complete a six minute walk test with a distance greater than 600' to indicate improved activity tolerance LTG Duration 05/20/20 One Impairment Pt does not have an appropriate home exercise program Short Term Goal (STG) Pt to be independent and compliant with an appropriate HEP STG Duration 04/19/20 Assessment Summary Assessment Pt has experienced significant decline in function since his initial eval 11 days ago, unable to stand without severe increase in pain, much more restricted mobility. Unfortunately, pt's is also handicapped, and pt fears once his daughter returns to [place] next week, he will not be able to get into PT. Patient would likely benefit more from home health PT, at least until his functional mobility improves. Physical Therapy Plan Frequency and Duration Frequency of Treatment 2x/Week Duration of Treatment 10 weeks Plan of Care Start Date 03/18/20 Plan of Care End Date 05/27/20 Therapeutic Interventions Therapeutic Interventions Balance Training,Gait Training ,Home Exercise Program,Joint Mobilizations,Manual Therapy, Neuromuscular Re-education, Patient/Caregiver Education, Self-Care/Home Management,Soft Tissue Mobilization, Therapeutic Activities, Therapeutic Exercises Modalities Cold Pack/Ice Massage,Electric Stimulation,Hot Packs, Ultrasound Other Referrals/Consults Referrals/Consults Recommended Home Health PT? Next Visit Focus/Plan Next Note Type Treatment Note Next Visit Plan gentle lumbar stretching/ flexibility, hip/ankle strengthening, gait training
--- NOTE | 2020-03-29 15:35 | PT-OP ANOTE ---
Spoke with Marcy at [facility] in regards to patient's inability to get to outpatient therapy after his daughter returns to [place]. She reported she would send a message to Dr Reeves's JAYE Agustin to ask about possibility of ordering home health PT.
--- NOTE | 2020-04-05 11:18 | PT.OTN ---
Current Diagnoses Foot drop, right foot (04/05/20) Stiffness of unspecified joint, not elsewhere classified (04/05/20) Stiffness of right hip, not elsewhere classified (04/05/20) Stiffness of left hip, not elsewhere classified (04/05/20) Radiculopathy, lumbar region (04/05/20) Muscle weakness (generalized) (04/05/20) Other abnormalities of gait and mobility (04/05/20) Physical Therapy Treatment Note PT-OP-A Visit Information Start: 03/18/20 17:40 Freq: Status: Active Protocol: Document 04/05/20 10:30 DCW (Rec: 04/05/20 11:18 DCW [id number]) Out-Patient Physical Therapy Visit Information Visit Information Visit Type Treatment Note Visit Start Time 10:30 Visit Stop Time 11:15 Total Visit Minutes 45 Visit Number 3 Number of COMMUNICATIONS DEPARTMENT CHAIR Visits 0 Evaluation Information Evaluation Date 03/18/20 PT-OP-B Current Condition Start: 03/18/20 17:40 Freq: Status: Active Protocol: Document 03/18/20 14:30 DCW (Rec: 03/18/20 17:52 DCW [id number]) Current Condition History of Current Condition Onset Date Eight weeks Current Complaints weakness, gait difficulty, LBP , decreased activity tolerance History of Current Condition Pt is a 69 year old male presenting eight weeks s/p L4- 5 microdiscectomy. Pt reports he has been experiencing low back pain for years, but about 5 months ago, the pain began to rapidly accelerate, and he was found to have ruptured his L4-5 disc. Unfortunately, due to Covid-19 shutdowns, he was unable to get in to have anything done with it, until he finally underwent a microdiscectomy eight weeks ago. Pt reports that prior to the surgery, he was barely moving around, and feels like he has lost a lot of strength and mobility. Pt reports that he had been experiencing weakness and radicular pain down his left leg prior to surgery, however that has improved, and he now has significant right-sided leg weakness. Pt reports he did not use any assistive device prior to his disc rupture, but has pretty much been using a 4WW ever since. Pt is beginning to notice shoulder pain because he is bearing so much weight through his upper extremities. Reports he currently gets fatigued just walking across the room. Treatment Goals Patient/Caregiver Goals I really want to regain strength in my right leg. PT-OP-C Subjective Start: 03/18/20 17:40 Freq: Status: Active Protocol: Document 04/05/20 10:30 DCW (Rec: 04/05/20 11:18 DCW [id number]) OP-PT Subjective Patient Comments Patient Comments Pt reports he underwent another EMG yesterday, found further dysfunction in his muscles. 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 PT-OP-E Functional Tests Start: 03/18/20 17:40 Freq: Status: Active Protocol: Document 03/18/20 14:30 DCW (Rec: 03/19/20 09:44 DCW [id number]) Functional Tests 2 Minute Walk Test Distance 178' Device Used 4WW Comments 1.43 ft/sec PT-OP-F Manual Assessment Start: 03/18/20 17:40 Freq: Status: Active Protocol: Document 03/18/20 14:30 DCW (Rec: 03/19/20 09:44 DCW [id number]) Manual Assessments Soft Tissue Assessment Soft Tissue Mobility Assessment Hypertonia and tenderness to palpation 2/4: Pain with wincing along bilateral piriformis, bilateral hamstring, bilateral psoas. Joint Mobility Assessment Joint Mobility Assessment Minimal mobility through lumbar spine, majority of flexion movement comes from hips. PT-OP-G Mobility & Gait Start: 03/18/20 17:40 Freq: Status: Active Protocol: Document 03/18/20 14:30 DCW (Rec: 03/19/20 09:44 DCW [id number]) OP Gait Assessment Gait Gait Assistance Required: Standby Assistance Distance (Feet) 178 Able to Maintain Weight Bearing Status Yes During Gait Assistive Devices Assistive Device Gait Belt,4 Wheeled Walker Orthotic/Prosthetic Devices or Brace: No Gait Deviations General Gait Pattern Antalgic,Ataxic,Decreased Stride Length,Decreased Feet Clearance,Flexed Trunk,Wide Based Gait Factors Limiting Gait Function Factors Limiting Gait Function Decreased Activity Tolerance, Decreased Strength,Limited Range of Motion,Pain PT-OP-K Range of Motion Start: 03/18/20 17:40 Freq: Status: Active Protocol: Document 03/18/20 14:30 DCW (Rec: 03/19/20 09:44 DCW [id number]) Lumbar Spine Range of Motion Lumbar Spine Active Degrees Testing Position Standing Flexion 20 Extension 10 ROM Limitations Soft Tissue Tightness,Bony Restriction,Muscle Weakness, Muscle Tone,Pain Comments When attempting to stand upright, pt is still flexed forward 10?, and then despite appearing to have good forward flexion, his lumbar spine only flexes to 20?, and the remainder of the movement comes from his hip. PT-OP-M Strength Start: 03/18/20 17:40 Freq: Status: Active Protocol: Document 03/18/20 14:30 DCW (Rec: 03/19/20 17:21 DCW [id number]) Hip Strength Hip Manual Muscle Testing Right Flexion (L2) 3+ Fair+ Abduction 4 Good Adduction 4 Good Left Flexion (L2) 4+ Good+ Abduction 4+ Good+ Adduction 4+ Good+ Knee Strength Knee Manual Muscle Testing Right Flexion (S2) 4+ Good+ Extension (L3) 4+ Good+ Left Flexion (S2) 4+ Good+ Extension (L3) 4+ Good+ Ankle/Foot Strength Ankle and Foot Manual Muscle Testing Right Dorsiflexion (L4) 3+ Fair+ Plantarflexion (S1) 4 Good Left Dorsiflexion (L4) 4+ Good+ Plantarflexion (S1) 4+ Good+ PT-OP-Q Treatments Start: 03/18/20 17:40 Freq: Status: Active Protocol: Document 04/05/20 10:30 DCW (Rec: 04/05/20 11:18 DCW [id number]) Cardio Equipment Recumbent Stepper (Sci-Fit) Duration (Minutes) 4 Resistance 1.5 Seat Position W/C Gym Equipment Therapeutic Ball 2 Exercise Details Hip/Knee flexion Ball Size/Color Blue - 45 cm Lv 2 T-band Body Position Supine 1 Exercise Details Low Trunk Rotations Ball Size/Color Blue - 45 cm Body Position Supine Therapeutic Exercises Supine Exercises 5 Supine Exercise Name Heel slides Side bilateral Equipment Used glide sheet 4 Supine Exercise Name Windshield Wipers Side bilateral Equipment Used glide sheet 2 Supine Exercise Name SAQ Side bilateral Resistance 10# 1 Supine Exercise Name SLR Side bilateral Comments AAROM concentric, AROM eccentric Sidelying Exercises 3 Sidelying Exercise Name Reverse Clam Shell Side right Comments AROM 2 Sidelying Exercise Name Clamshell Side right Sitting Exercises 4 Sitting Exercise Name Hamstring Curls Side bilateral Resistance Lv 2 Equipment Used T-band 3 Sitting Exercise Name LAQ Side bilateral Resistance 10# PT-OP-T Assessment and Plan Start: 03/18/20 17:40 Freq: Status: Active Protocol: Document 04/05/20 10:30 DCW (Rec: 04/05/20 11:18 DCW [id number]) Physical Therapy Assessment Impairments Impairments Activity Tolerance,Balance, Functional Activities, Functional Mobility,Gait,ROM, Soft Tissue Mobility,Strength Goals Four Impairment Significant limitations in lumbar ROM (10?-20?) Operations Liaison Goal (LTG) Lumbar ROM to improve to 0?-50 ? LTG Duration 05/20/20 Three Impairment Pt demonstrates right foot drop during gait Operations Liaison Goal (LTG) Pt right ankle DF and hip flexion MMT to 4/5, to decrease risk for foot drop and improve gait quality LTG Duration 05/20/20 Two Impairment Pt ambulates 178' (1.43 ft/sec ) using a FWW during a Two Minute Walk Test Short Term Goal (STG) A gait speed less than 1.97 ft /sec has been shown to be a predictor of further functional decline in older adults. Pt to improve his 2 MWT distance to 237' to demonstrate a gate speed of greater than 1.97 ft/sec STG Duration 04/19/20 Nursing Home Goal (LTG) Pt to complete a six minute walk test with a distance greater than 600' to indicate improved activity tolerance LTG Duration 05/20/20 One Impairment Pt does not have an appropriate home exercise program Short Term Goal (STG) Pt to be independent and compliant with an appropriate HEP STG Duration 04/19/20 Assessment Summary Assessment Pt continues to struggle with mobility secondary to pain and weakness. Planning on transferring care to home health, but would like 1-2 more visits scheduled here in case he cannot get started quickly with home health. Physical Therapy Plan Frequency and Duration Frequency of Treatment 2x/Week Duration of Treatment 10 weeks Plan of Care Start Date 03/18/20 Plan of Care End Date 05/27/20 Therapeutic Interventions Therapeutic Interventions Balance Training,Gait Training ,Home Exercise Program,Joint Mobilizations,Manual Therapy, Neuromuscular Re-education, Patient/Caregiver Education, Self-Care/Home Management,Soft Tissue Mobilization, Therapeutic Activities, Therapeutic Exercises Modalities Cold Pack/Ice Massage,Electric Stimulation,Hot Packs, Ultrasound Other Referrals/Consults Referrals/Consults Recommended Home Health PT? Next Visit Focus/Plan Next Note Type Treatment Note Next Visit Plan gentle lumbar stretching/ flexibility, hip/ankle strengthening, gait training
--- NOTE | 2020-04-09 16:21 | PT.OTN ---
Current Diagnoses Foot drop, right foot (04/09/20) Stiffness of unspecified joint, not elsewhere classified (04/09/20) Stiffness of right hip, not elsewhere classified (04/09/20) Stiffness of left hip, not elsewhere classified (04/09/20) Radiculopathy, lumbar region (04/09/20) Muscle weakness (generalized) (04/09/20) Other abnormalities of gait and mobility (04/09/20) Physical Therapy Treatment Note PT-OP-A Visit Information Start: 03/18/20 17:40 Freq: Status: Active Protocol: Document 04/09/20 15:18 HH (Rec: 04/09/20 16:21 HH [id number]) Out-Patient Physical Therapy Visit Information Visit Information Visit Type Treatment Note Visit Start Time 15:18 Visit Stop Time 16:00 Total Visit Minutes 42 Visit Number 4 Number of DIRECTOR EXPORT Visits 0 PT-OP-B Current Condition Start: 03/18/20 17:40 Freq: Status: Active Protocol: Document 03/18/20 14:30 DCW (Rec: 03/18/20 17:52 DCW [id number]) Current Condition History of Current Condition Onset Date Eight weeks Current Complaints weakness, gait difficulty, LBP , decreased activity tolerance History of Current Condition Pt is a 69 year old male presenting eight weeks s/p L4- 5 microdiscectomy. Pt reports he has been experiencing low back pain for years, but about 5 months ago, the pain began to rapidly accelerate, and he was found to have ruptured his L4-5 disc. Unfortunately, due to Covid-19 shutdowns, he was unable to get in to have anything done with it, until he finally underwent a microdiscectomy eight weeks ago. Pt reports that prior to the surgery, he was barely moving around, and feels like he has lost a lot of strength and mobility. Pt reports that he had been experiencing weakness and radicular pain down his left leg prior to surgery, however that has improved, and he now has significant right-sided leg weakness. Pt reports he did not use any assistive device prior to his disc rupture, but has pretty much been using a 4WW ever since. Pt is beginning to notice shoulder pain because he is bearing so much weight through his upper extremities. Reports he currently gets fatigued just walking across the room. Treatment Goals Patient/Caregiver Goals I really want to regain strength in my right leg. PT-OP-C Subjective Start: 03/18/20 17:40 Freq: Status: Active Protocol: Document 04/09/20 15:18 HH (Rec: 04/09/20 16:21 HH [id number]) OP-PT Subjective Patient Comments Patient Comments Pt stated he has been around the same. He is going to see rhumatologist this . I havent walked for 6-8 weeks now. All i do is chair transfer PT-OP-E Functional Tests Start: 03/18/20 17:40 Freq: Status: Active Protocol: Document 03/18/20 14:30 DCW (Rec: 03/19/20 09:44 DCW [id number]) Functional Tests 2 Minute Walk Test Distance 178' Device Used 4WW Comments 1.43 ft/sec PT-OP-F Manual Assessment Start: 03/18/20 17:40 Freq: Status: Active Protocol: Document 03/18/20 14:30 DCW (Rec: 03/19/20 09:44 DCW [id number]) Manual Assessments Soft Tissue Assessment Soft Tissue Mobility Assessment Hypertonia and tenderness to palpation 2/4: Pain with wincing along bilateral piriformis, bilateral hamstring, bilateral psoas. Joint Mobility Assessment Joint Mobility Assessment Minimal mobility through lumbar spine, majority of flexion movement comes from hips. PT-OP-G Mobility & Gait Start: 03/18/20 17:40 Freq: Status: Active Protocol: Document 03/18/20 14:30 DCW (Rec: 03/19/20 09:44 DCW [id number]) OP Gait Assessment Gait Gait Assistance Required: Standby Assistance Distance (Feet) 178 Able to Maintain Weight Bearing Status Yes During Gait Assistive Devices Assistive Device Gait Belt,4 Wheeled Walker Orthotic/Prosthetic Devices or Brace: No Gait Deviations General Gait Pattern Antalgic,Ataxic,Decreased Stride Length,Decreased Feet Clearance,Flexed Trunk,Wide Based Gait Factors Limiting Gait Function Factors Limiting Gait Function Decreased Activity Tolerance, Decreased Strength,Limited Range of Motion,Pain PT-OP-K Range of Motion Start: 03/18/20 17:40 Freq: Status: Active Protocol: Document 03/18/20 14:30 DCW (Rec: 03/19/20 09:44 DCW [id number]) Lumbar Spine Range of Motion Lumbar Spine Active Degrees Testing Position Standing Flexion 20 Extension 10 ROM Limitations Soft Tissue Tightness,Bony Restriction,Muscle Weakness, Muscle Tone,Pain Comments When attempting to stand upright, pt is still flexed forward 10?, and then despite appearing to have good forward flexion, his lumbar spine only flexes to 20?, and the remainder of the movement comes from his hip. PT-OP-M Strength Start: 03/18/20 17:40 Freq: Status: Active Protocol: Document 03/18/20 14:30 DCW (Rec: 03/19/20 17:21 DCW [id number]) Hip Strength Hip Manual Muscle Testing Right Flexion (L2) 3+ Fair+ Abduction 4 Good Adduction 4 Good Left Flexion (L2) 4+ Good+ Abduction 4+ Good+ Adduction 4+ Good+ Knee Strength Knee Manual Muscle Testing Right Flexion (S2) 4+ Good+ Extension (L3) 4+ Good+ Left Flexion (S2) 4+ Good+ Extension (L3) 4+ Good+ Ankle/Foot Strength Ankle and Foot Manual Muscle Testing Right Dorsiflexion (L4) 3+ Fair+ Plantarflexion (S1) 4 Good Left Dorsiflexion (L4) 4+ Good+ Plantarflexion (S1) 4+ Good+ PT-OP-Q Treatments Start: 03/18/20 17:40 Freq: Status: Active Protocol: Document 04/09/20 15:18 HH (Rec: 04/09/20 16:21 HH [id number]) Cardio Equipment Recumbent Stepper (Sci-Fit) Duration (Minutes) 5 Resistance 1.5 Seat Position W/C Therapeutic Exercises Supine Exercises bridging Side bilateral Reps/Minutes 5x2 Comments pt can only lift off his buttocks slightly and fatigue after 5 reps LTR Side bilateral Equipment Used red therapy ball Reps/Minutes 8 x2 Comments no discomfort noted ab curl Side bilateral Equipment Used red therapy ball Reps/Minutes 8 x 2 Comments no discomfort noted. cues on lower ab engagement 4 Supine Exercise Name Windshield Wipers Side bilateral Equipment Used glide sheet 2 Supine Exercise Name SAQ Side bilateral Resistance 10# 1 Supine Exercise Name SLR Side bilateral Comments AAROM concentric, AROM eccentric Sitting Exercises 3 Sitting Exercise Name LAQ Side bilateral Resistance 10# Gait Training Gait Activity //bar Description fwd then bwd Device Used //bar Level of Assistance CGA Surface ground level Distance/Duration 10 ft x2 Comments pt presents +ve trendelenburg sign bilaterally who is unable to engage his glutes to maintain upright position. Pt completes PT-OP-T Assessment and Plan Start: 03/18/20 17:40 Freq: Status: Active Protocol: Document 04/09/20 15:18 HH (Rec: 04/09/20 16:21 HH [id number]) Physical Therapy Assessment Goals Four Impairment Significant limitations in lumbar ROM (10?-20?) Nursing Home Goal (LTG) Lumbar ROM to improve to 0?-50 ? LTG Duration 05/20/20 Three Impairment Pt demonstrates right foot drop during gait Nursing Home Goal (LTG) Pt right ankle DF and hip flexion MMT to 4/5, to decrease risk for foot drop and improve gait quality LTG Duration 05/20/20 Two Impairment Pt ambulates 178' (1.43 ft/sec ) using a FWW during a Two Minute Walk Test Short Term Goal (STG) A gait speed less than 1.97 ft /sec has been shown to be a predictor of further functional decline in older adults. Pt to improve his 2 MWT distance to 237' to demonstrate a gate speed of greater than 1.97 ft/sec STG Duration 04/19/20 Sheet Metal Superintendent Goal (LTG) Pt to complete a six minute walk test with a distance greater than 600' to indicate improved activity tolerance LTG Duration 05/20/20 One Impairment Pt does not have an appropriate home exercise program Short Term Goal (STG) Pt to be independent and compliant with an appropriate HEP STG Duration 04/19/20 Assessment Summary Assessment This PT noticed has difficulty engaging his posterior chain especially hip stabilizers. Pt can only tolerate 5 reps of bridging and minimally clear off the table. He also shows + ve trendelenburg sign bilaterally during walking trial with //bar. Physical Therapy Plan Next Visit Focus/Plan Next Note Type Treatment Note Next Visit Plan gentle lumbar stretching/ flexibility, hip/ankle strengthening, gait training
--- NOTE | 2020-04-16 12:20 | PT.OPPOC ---
Physical, Occupational & Speech Therapy At [facility] Current Diagnoses Foot drop, right foot (04/16/20) Stiffness of unspecified joint, not elsewhere classified (04/16/20) Stiffness of right hip, not elsewhere classified (04/16/20) Stiffness of left hip, not elsewhere classified (04/16/20) Radiculopathy, lumbar region (04/16/20) Muscle weakness (generalized) (04/16/20) Other abnormalities of gait and mobility (04/16/20) Visit Care Team Role Provider Type Robin Lee MD Family Provider Physician Primary Care Provider Specialty: Internal Medicine Address: [address] [place] [address], [id number] Email: [email or web address] Shaka Reeves MD Attending Provider Non-Staff Referring Provider Specialty: Medical Address: [address] [place] [address], [phone] Email: Plan Of Care PT-OP-T Assessment and Plan Start: 03/18/20 17:40 Freq: Status: Active Protocol: Document 04/16/20 11:17 (Rec: 04/16/20 12:19 [id number]) Physical Therapy Assessment Goals Four Impairment Significant limitations in lumbar ROM (10?-20?) Custodial Goal (LTG) Lumbar ROM to improve to 0?-50 ? LTG Duration 05/20/20 Three Impairment Pt demonstrates right foot drop during gait Custodial Goal (LTG) Pt right ankle DF and hip flexion MMT to 4/5, to decrease risk for foot drop and improve gait quality LTG Duration 05/20/20 Two Impairment Pt ambulates 178' (1.43 ft/sec ) using a FWW during a Two Minute Walk Test Short Term Goal (STG) A gait speed less than 1.97 ft /sec has been shown to be a predictor of further functional decline in older adults. Pt to improve his 2 MWT distance to 237' to demonstrate a gate speed of greater than 1.97 ft/sec STG Duration 04/19/20 Custodial Goal (LTG) Pt to complete a six minute walk test with a distance greater than 600' to indicate improved activity tolerance LTG Duration 05/20/20 One Impairment Pt does not have an appropriate home exercise program Short Term Goal (STG) Pt to be independent and compliant with an appropriate HEP STG Duration 04/19/20 Assessment Summary Assessment Pt shows improved posterior chain engagement today and this session focused on lumbar mobility and pt nakul very well . Pt is able to show improved briding and amb with reduced wobbly gait. Since pt currently is waiting for MD's dx and pt seems to respond well with therapy, pt will benefit from skilled therapy 2x/ week to maximize his rehab potential to regain his mobility. Physical Therapy Plan Frequency and Duration Frequency of Treatment 2x/Week Duration of Treatment 8 weeks Plan of Care Start Date 04/16/20 Plan of Care End Date 06/15/20 Next Visit Focus/Plan Next Note Type Treatment Note Next Visit Plan gentle lumbar stretching/ flexibility, hip/ankle strengthening, gait training Plan of Care Dates Plan of Care Start Date 04/16/20 Plan of Care End Date 06/15/20 Electronically Signed by: Willie Uribe, PT 04/16/20 4059 Please Sign and Return: I have reviewed this Plan of Care and certify that the skilled therapy services above are required to meet the patient?s needs. Physician Signature Date Printed Name and Credentials Clinical Instructor Signature Printed Name and Credentials
--- NOTE | 2020-04-16 12:20 | PT.OTN ---
Current Diagnoses Foot drop, right foot (04/16/20) Stiffness of unspecified joint, not elsewhere classified (04/16/20) Stiffness of right hip, not elsewhere classified (04/16/20) Stiffness of left hip, not elsewhere classified (04/16/20) Radiculopathy, lumbar region (04/16/20) Muscle weakness (generalized) (04/16/20) Other abnormalities of gait and mobility (04/16/20) Physical Therapy Treatment Note PT-OP-A Visit Information Start: 03/18/20 17:40 Freq: Status: Active Protocol: Document 04/16/20 11:17 HH (Rec: 04/16/20 12:19 HH [id number]) Out-Patient Physical Therapy Visit Information Visit Information Visit Type Treatment Note Visit Start Time 11:16 Visit Stop Time 16:00 Total Visit Minutes 44 Visit Number 5 Number of SLEEVE SETTER Visits 0 PT-OP-B Current Condition Start: 03/18/20 17:40 Freq: Status: Active Protocol: Document 03/18/20 14:30 DCW (Rec: 03/18/20 17:52 DCW [id number]) Current Condition History of Current Condition Onset Date Eight weeks Current Complaints weakness, gait difficulty, LBP , decreased activity tolerance History of Current Condition Pt is a 69 year old male presenting eight weeks s/p L4- 5 microdiscectomy. Pt reports he has been experiencing low back pain for years, but about 5 months ago, the pain began to rapidly accelerate, and he was found to have ruptured his L4-5 disc. Unfortunately, due to Covid-19 shutdowns, he was unable to get in to have anything done with it, until he finally underwent a microdiscectomy eight weeks ago. Pt reports that prior to the surgery, he was barely moving around, and feels like he has lost a lot of strength and mobility. Pt reports that he had been experiencing weakness and radicular pain down his left leg prior to surgery, however that has improved, and he now has significant right-sided leg weakness. Pt reports he did not use any assistive device prior to his disc rupture, but has pretty much been using a 4WW ever since. Pt is beginning to notice shoulder pain because he is bearing so much weight through his upper extremities. Reports he currently gets fatigued just walking across the room. Treatment Goals Patient/Caregiver Goals I really want to regain strength in my right leg. PT-OP-C Subjective Start: 03/18/20 17:40 Freq: Status: Active Protocol: Document 04/16/20 11:17 HH (Rec: 04/16/20 12:19 HH [id number]) OP-PT Subjective Patient Comments Patient Comments clinical sciences professor and orthopedist both have disagreement now since the clinical sciences professor thinks there's no abnormal findings. I also noticed my R foot is able to pick remover a little easier and hip are slightly stronger. Patient Reported Progress Improving PT-OP-E Functional Tests Start: 03/18/20 17:40 Freq: Status: Active Protocol: Document 03/18/20 14:30 DCW (Rec: 03/19/20 09:44 DCW [id number]) Functional Tests 2 Minute Walk Test Distance 178' Device Used 4WW Comments 1.43 ft/sec PT-OP-F Manual Assessment Start: 03/18/20 17:40 Freq: Status: Active Protocol: Document 03/18/20 14:30 DCW (Rec: 03/19/20 09:44 DCW [id number]) Manual Assessments Soft Tissue Assessment Soft Tissue Mobility Assessment Hypertonia and tenderness to palpation 2/4: Pain with wincing along bilateral piriformis, bilateral hamstring, bilateral psoas. Joint Mobility Assessment Joint Mobility Assessment Minimal mobility through lumbar spine, majority of flexion movement comes from hips. PT-OP-G Mobility & Gait Start: 03/18/20 17:40 Freq: Status: Active Protocol: Document 03/18/20 14:30 DCW (Rec: 03/19/20 09:44 DCW [id number]) OP Gait Assessment Gait Gait Assistance Required: Standby Assistance Distance (Feet) 178 Able to Maintain Weight Bearing Status Yes During Gait Assistive Devices Assistive Device Gait Belt,4 Wheeled Walker Orthotic/Prosthetic Devices or Brace: No Gait Deviations General Gait Pattern Antalgic,Ataxic,Decreased Stride Length,Decreased Feet Clearance,Flexed Trunk,Wide Based Gait Factors Limiting Gait Function Factors Limiting Gait Function Decreased Activity Tolerance, Decreased Strength,Limited Range of Motion,Pain PT-OP-K Range of Motion Start: 03/18/20 17:40 Freq: Status: Active Protocol: Document 03/18/20 14:30 DCW (Rec: 03/19/20 09:44 DCW [id number]) Lumbar Spine Range of Motion Lumbar Spine Active Degrees Testing Position Standing Flexion 20 Extension 10 ROM Limitations Soft Tissue Tightness,Bony Restriction,Muscle Weakness, Muscle Tone,Pain Comments When attempting to stand upright, pt is still flexed forward 10?, and then despite appearing to have good forward flexion, his lumbar spine only flexes to 20?, and the remainder of the movement comes from his hip. PT-OP-M Strength Start: 03/18/20 17:40 Freq: Status: Active Protocol: Document 03/18/20 14:30 DCW (Rec: 03/19/20 17:21 DCW [id number]) Hip Strength Hip Manual Muscle Testing Right Flexion (L2) 3+ Fair+ Abduction 4 Good Adduction 4 Good Left Flexion (L2) 4+ Good+ Abduction 4+ Good+ Adduction 4+ Good+ Knee Strength Knee Manual Muscle Testing Right Flexion (S2) 4+ Good+ Extension (L3) 4+ Good+ Left Flexion (S2) 4+ Good+ Extension (L3) 4+ Good+ Ankle/Foot Strength Ankle and Foot Manual Muscle Testing Right Dorsiflexion (L4) 3+ Fair+ Plantarflexion (S1) 4 Good Left Dorsiflexion (L4) 4+ Good+ Plantarflexion (S1) 4+ Good+ PT-OP-Q Treatments Start: 03/18/20 17:40 Freq: Status: Active Protocol: Document 04/16/20 11:17 HH (Rec: 04/16/20 12:19 HH [id number]) Cardio Equipment Recumbent Stepper (Sci-Fit) Duration (Minutes) 5 Resistance 1.5 Seat Position W/C Therapeutic Exercises Supine Exercises pelvic tilt Supine Exercise Name APT to PPT Side bilateral Reps/Minutes 8 x2 Comments needs PT hands at lumbar to tactile cue bridging Supine Exercise Name less pain with PPT first. Side bilateral Reps/Minutes 5x2 Comments pt can only lift off his buttocks slightly and fatigue after 5 reps LTR Side bilateral Equipment Used red therapy ball Reps/Minutes 8 x2 Comments no discomfort noted ab curl Side bilateral Equipment Used red therapy ball Reps/Minutes 8 x 2 Comments no discomfort noted. cues on lower ab engagement Sitting Exercises pelvic tilt Side bilateral Reps/Minutes 10 mins Comments need tactile cues for APT and PPT Standing Exercises 1 Standing Exercise Name pelvic tilt Comments pt presents flexed trunk and difficulty engaging gluteal muscles. Gait Training Gait Activity //bar Description fwd then bwd Device Used //bar Level of Assistance CGA Surface ground level Distance/Duration 10 ft x2 Comments Pt shows less lateral weight shift and improved gait stability then last sessoin. Pt does show increased trunk flexion during gait and pain noted during stance phase Manual Therapy Treatment Soft Tissue Mobilization lumbar paraspinals Mobilization Type Sustained Pressure,Trigger Point Release Intensity/Depth Moderate Body Position Sitting Comments no discomfort noted. Manual Traction Lumbar Body Position Hooklying Reps/Duration 10 sec hold x 8 hip distriction Body Position Supine Reps/Duration 10 sec hold x 8 Comments pt reports of relief at low back PT-OP-T Assessment and Plan Start: 03/18/20 17:40 Freq: Status: Active Protocol: Document 04/16/20 11:17 (Rec: 04/16/20 12:19 [id number]) Physical Therapy Assessment Goals Four Impairment Significant limitations in lumbar ROM (10?-20?) [facility] Goal (LTG) Lumbar ROM to improve to 0?-50 ? LTG Duration 05/20/20 Three Impairment Pt demonstrates right foot drop during gait Traveling Storekeeper Goal (LTG) Pt right ankle DF and hip flexion MMT to 4/5, to decrease risk for foot drop and improve gait quality LTG Duration 05/20/20 Two Impairment Pt ambulates 178' (1.43 ft/sec ) using a FWW during a Two Minute Walk Test Short Term Goal (STG) A gait speed less than 1.97 ft /sec has been shown to be a predictor of further functional decline in older adults. Pt to improve his 2 MWT distance to 237' to demonstrate a gate speed of greater than 1.97 ft/sec STG Duration 04/19/20 [facility] Goal (LTG) Pt to complete a six minute walk test with a distance greater than 600' to indicate improved activity tolerance LTG Duration 05/20/20 One Impairment Pt does not have an appropriate home exercise program Short Term Goal (STG) Pt to be independent and compliant with an appropriate HEP STG Duration 04/19/20 Assessment Summary Assessment Pt shows improved posterior chain engagement today and this session focused on lumbar mobility and pt nakul very well . Pt is able to show improved briding and amb with reduced wobbly gait. Since pt currently is waiting for MD's dx and pt seems to respond well with therapy, pt will benefit from skilled therapy 2x/ week to maximize his rehab potential to regain his mobility. Physical Therapy Plan Frequency and Duration Frequency of Treatment 2x/Week Duration of Treatment 8 weeks Plan of Care Start Date 04/16/20 Plan of Care End Date 06/15/20 Next Visit Focus/Plan Next Note Type Treatment Note Next Visit Plan gentle lumbar stretching/ flexibility, hip/ankle strengthening, gait training
--- NOTE | 2020-04-18 16:25 | PT.OTN ---
Current Diagnoses Foot drop, right foot (04/18/20) Stiffness of unspecified joint, not elsewhere classified (04/18/20) Stiffness of right hip, not elsewhere classified (04/18/20) Stiffness of left hip, not elsewhere classified (04/18/20) Radiculopathy, lumbar region (04/18/20) Muscle weakness (generalized) (04/18/20) Other abnormalities of gait and mobility (04/18/20) Physical Therapy Treatment Note PT-OP-A Visit Information Start: 03/18/20 17:40 Freq: Status: Active Protocol: Document 04/18/20 14:35 HH (Rec: 04/18/20 16:25 HH [id number]) Out-Patient Physical Therapy Visit Information Visit Information Visit Type Treatment Note Visit Note pt comes in with 4WW Visit Start Time 14:34 Visit Stop Time 15:15 Total Visit Minutes 41 Visit Number 6 Number of [employer] Visits 0 PT-OP-B Current Condition Start: 03/18/20 17:40 Freq: Status: Active Protocol: Document 03/18/20 14:30 DCW (Rec: 03/18/20 17:52 DCW [id number]) Current Condition History of Current Condition Onset Date Eight weeks Current Complaints weakness, gait difficulty, LBP , decreased activity tolerance History of Current Condition Pt is a 69 year old male presenting eight weeks s/p L4- 5 microdiscectomy. Pt reports he has been experiencing low back pain for years, but about 5 months ago, the pain began to rapidly accelerate, and he was found to have ruptured his L4-5 disc. Unfortunately, due to Covid-19 shutdowns, he was unable to get in to have anything done with it, until he finally underwent a microdiscectomy eight weeks ago. Pt reports that prior to the surgery, he was barely moving around, and feels like he has lost a lot of strength and mobility. Pt reports that he had been experiencing weakness and radicular pain down his left leg prior to surgery, however that has improved, and he now has significant right-sided leg weakness. Pt reports he did not use any assistive device prior to his disc rupture, but has pretty much been using a 4WW ever since. Pt is beginning to notice shoulder pain because he is bearing so much weight through his upper extremities. Reports he currently gets fatigued just walking across the room. Treatment Goals Patient/Caregiver Goals I really want to regain strength in my right leg. PT-OP-C Subjective Start: 03/18/20 17:40 Freq: Status: Active Protocol: Document 04/18/20 14:35 HH (Rec: 04/18/20 16:25 HH [id number]) OP-PT Subjective Patient Comments Patient Comments I feel okay from last time. I left voicemessages to both quar[employer] dr[employer] and orthopedist but they havent gotten back to me, Patient Reported Progress Improving PT-OP-E Functional Tests Start: 03/18/20 17:40 Freq: Status: Active Protocol: Document 03/18/20 14:30 DCW (Rec: 03/19/20 09:44 DCW [id number]) Functional Tests 2 Minute Walk Test Distance 178' Device Used 4WW Comments 1.43 ft/sec PT-OP-F Manual Assessment Start: 03/18/20 17:40 Freq: Status: Active Protocol: Document 03/18/20 14:30 DCW (Rec: 03/19/20 09:44 DCW [id number]) Manual Assessments Soft Tissue Assessment Soft Tissue Mobility Assessment Hypertonia and tenderness to palpation 2/4: Pain with wincing along bilateral piriformis, bilateral hamstring, bilateral psoas. Joint Mobility Assessment Joint Mobility Assessment Minimal mobility through lumbar spine, majority of flexion movement comes from hips. PT-OP-G Mobility & Gait Start: 03/18/20 17:40 Freq: Status: Active Protocol: Document 03/18/20 14:30 DCW (Rec: 03/19/20 09:44 DCW [id number]) OP Gait Assessment Gait Gait Assistance Required: Standby Assistance Distance (Feet) 178 Able to Maintain Weight Bearing Status Yes During Gait Assistive Devices Assistive Device Gait Belt,4 Wheeled Walker Orthotic/Prosthetic Devices or Brace: No Gait Deviations General Gait Pattern Antalgic,Ataxic,Decreased Stride Length,Decreased Feet Clearance,Flexed Trunk,Wide Based Gait Factors Limiting Gait Function Factors Limiting Gait Function Decreased Activity Tolerance, Decreased Strength,Limited Range of Motion,Pain PT-OP-K Range of Motion Start: 03/18/20 17:40 Freq: Status: Active Protocol: Document 03/18/20 14:30 DCW (Rec: 03/19/20 09:44 DCW [id number]) Lumbar Spine Range of Motion Lumbar Spine Active Degrees Testing Position Standing Flexion 20 Extension 10 ROM Limitations Soft Tissue Tightness,Bony Restriction,Muscle Weakness, Muscle Tone,Pain Comments When attempting to stand upright, pt is still flexed forward 10?, and then despite appearing to have good forward flexion, his lumbar spine only flexes to 20?, and the remainder of the movement comes from his hip. PT-OP-M Strength Start: 03/18/20 17:40 Freq: Status: Active Protocol: Document 03/18/20 14:30 DCW (Rec: 03/19/20 17:21 DCW [id number]) Hip Strength Hip Manual Muscle Testing Right Flexion (L2) 3+ Fair+ Abduction 4 Good Adduction 4 Good Left Flexion (L2) 4+ Good+ Abduction 4+ Good+ Adduction 4+ Good+ Knee Strength Knee Manual Muscle Testing Right Flexion (S2) 4+ Good+ Extension (L3) 4+ Good+ Left Flexion (S2) 4+ Good+ Extension (L3) 4+ Good+ Ankle/Foot Strength Ankle and Foot Manual Muscle Testing Right Dorsiflexion (L4) 3+ Fair+ Plantarflexion (S1) 4 Good Left Dorsiflexion (L4) 4+ Good+ Plantarflexion (S1) 4+ Good+ PT-OP-Q Treatments Start: 03/18/20 17:40 Freq: Status: Active Protocol: Document 04/18/20 14:35 HH (Rec: 04/18/20 16:25 HH [id number]) Cardio Equipment Recumbent Stepper (Sci-Fit) Duration (Minutes) 8 Resistance 2.5 Gym Equipment Shuttle Recovery B squat Resistance #75 Shuttle Recovery Platform Stable Reps/Time focus on heel push off uni squat Resistance #50 Shuttle Recovery Platform Stable Reps/Time focus on heel push off Therapeutic Ball 2 Ball Size/Color silver Body Position Sitting Reps/Duration 6 x2 Comments seated forward reach Therapeutic Exercises Supine Exercises pelvic tilt Supine Exercise Name APT to PPT Side bilateral Reps/Minutes 10 x2 Comments able to do it indpeendently bridging Supine Exercise Name no pain noted Side bilateral Reps/Minutes 5 x3 Comments pt can only lift off his buttocks slightly and fatigue after 5 reps Prone Exercises hip extension Prone Exercise Name unilateral hip extension, elbow on table Side bilateral Reps/Minutes 3 x2 Comments pt unable to reach full extension, weakness present Sitting Exercises pelvic tilt Side bilateral Reps/Minutes 10 mins Comments need tactile cues for APT and PPT Standing Exercises 1 Standing Exercise Name pelvic tilt Reps/Minutes 10 times Comments pt presents flexed trunk and difficulty engaging gluteal muscles. Self-Care/Home Management Treatment Education Patient Education Safety Other Education educated pt to use FWW for amb since his 4WW is too short and malfunctioned brakes. PT-OP-T Assessment and Plan Start: 03/18/20 17:40 Freq: Status: Active Protocol: Document 04/18/20 14:35 HH (Rec: 04/18/20 16:25 HH [id number]) Physical Therapy Assessment Goals Four Impairment Significant limitations in lumbar ROM (10?-20?) Snf Goal (LTG) Lumbar ROM to improve to 0?-50 ? LTG Duration 05/20/20 Three Impairment Pt demonstrates right foot drop during gait Momd Teacher Goal (LTG) Pt right ankle DF and hip flexion MMT to 4/5, to decrease risk for foot drop and improve gait quality LTG Duration 05/20/20 Two Impairment Pt ambulates 178' (1.43 ft/sec ) using a FWW during a Two Minute Walk Test Short Term Goal (STG) A gait speed less than 1.97 ft /sec has been shown to be a predictor of further functional decline in older adults. Pt to improve his 2 MWT distance to 237' to demonstrate a gate speed of greater than 1.97 ft/sec STG Duration 04/19/20 Snf Goal (LTG) Pt to complete a six minute walk test with a distance greater than 600' to indicate improved activity tolerance LTG Duration 05/20/20 One Impairment Pt does not have an appropriate home exercise program Short Term Goal (STG) Pt to be independent and compliant with an appropriate HEP STG Duration 04/19/20 Assessment Summary Assessment Pt came in with 4WW but very unstable for gait d/t improper height and malfunctioned brakes. Educated him to use FWW at this point. Pt cont to amb with significant trunk forward lean and unsteady gait . This session cont focus on post chain engagement. Physical Therapy Plan Next Visit Focus/Plan Next Note Type Treatment Note Next Visit Plan gentle lumbar stretching/ flexibility, hip/ankle strengthening, gait training
--- NOTE | 2020-04-22 12:11 | PT.OTN ---
Current Diagnoses Foot drop, right foot (04/22/20) Stiffness of unspecified joint, not elsewhere classified (04/22/20) Stiffness of right hip, not elsewhere classified (04/22/20) Stiffness of left hip, not elsewhere classified (04/22/20) Radiculopathy, lumbar region (04/22/20) Muscle weakness (generalized) (04/22/20) Other abnormalities of gait and mobility (04/22/20) Physical Therapy Treatment Note PT-OP-A Visit Information Start: 03/18/20 17:40 Freq: Status: Active Protocol: Document 04/22/20 11:18 HH (Rec: 04/22/20 12:10 HH [id number]) Out-Patient Physical Therapy Visit Information Visit Information Visit Type Treatment Note Visit Note pt comes in with w/c Visit Start Time 11:17 Visit Stop Time 12:00 Total Visit Minutes 43 Visit Number 7 Number of GAMING COMMISSIONER Visits 0 PT-OP-B Current Condition Start: 03/18/20 17:40 Freq: Status: Active Protocol: Document 03/18/20 14:30 DCW (Rec: 03/18/20 17:52 DCW [id number]) Current Condition History of Current Condition Onset Date Eight weeks Current Complaints weakness, gait difficulty, LBP , decreased activity tolerance History of Current Condition Pt is a 69 year old male presenting eight weeks s/p L4- 5 microdiscectomy. Pt reports he has been experiencing low back pain for years, but about 5 months ago, the pain began to rapidly accelerate, and he was found to have ruptured his L4-5 disc. Unfortunately, due to Covid-19 shutdowns, he was unable to get in to have anything done with it, until he finally underwent a microdiscectomy eight weeks ago. Pt reports that prior to the surgery, he was barely moving around, and feels like he has lost a lot of strength and mobility. Pt reports that he had been experiencing weakness and radicular pain down his left leg prior to surgery, however that has improved, and he now has significant right-sided leg weakness. Pt reports he did not use any assistive device prior to his disc rupture, but has pretty much been using a 4WW ever since. Pt is beginning to notice shoulder pain because he is bearing so much weight through his upper extremities. Reports he currently gets fatigued just walking across the room. Treatment Goals Patient/Caregiver Goals I really want to regain strength in my right leg. PT-OP-C Subjective Start: 03/18/20 17:40 Freq: Status: Active Protocol: Document 04/22/20 11:18 HH (Rec: 04/22/20 12:10 HH [id number]) OP-PT Subjective Patient Comments Patient Comments My back got really sore and painful the 3rd or 4th day after last tx. But I noticed i could engage my glute better . Patient Reported Progress Same PT-OP-E Functional Tests Start: 03/18/20 17:40 Freq: Status: Active Protocol: Document 03/18/20 14:30 DCW (Rec: 03/19/20 09:44 DCW [id number]) Functional Tests 2 Minute Walk Test Distance 178' Device Used 4WW Comments 1.43 ft/sec PT-OP-F Manual Assessment Start: 03/18/20 17:40 Freq: Status: Active Protocol: Document 03/18/20 14:30 DCW (Rec: 03/19/20 09:44 DCW [id number]) Manual Assessments Soft Tissue Assessment Soft Tissue Mobility Assessment Hypertonia and tenderness to palpation 2/4: Pain with wincing along bilateral piriformis, bilateral hamstring, bilateral psoas. Joint Mobility Assessment Joint Mobility Assessment Minimal mobility through lumbar spine, majority of flexion movement comes from hips. PT-OP-G Mobility & Gait Start: 03/18/20 17:40 Freq: Status: Active Protocol: Document 03/18/20 14:30 DCW (Rec: 03/19/20 09:44 DCW [id number]) OP Gait Assessment Gait Gait Assistance Required: Standby Assistance Distance (Feet) 178 Able to Maintain Weight Bearing Status Yes During Gait Assistive Devices Assistive Device Gait Belt,4 Wheeled Walker Orthotic/Prosthetic Devices or Brace: No Gait Deviations General Gait Pattern Antalgic,Ataxic,Decreased Stride Length,Decreased Feet Clearance,Flexed Trunk,Wide Based Gait Factors Limiting Gait Function Factors Limiting Gait Function Decreased Activity Tolerance, Decreased Strength,Limited Range of Motion,Pain PT-OP-K Range of Motion Start: 03/18/20 17:40 Freq: Status: Active Protocol: Document 03/18/20 14:30 DCW (Rec: 03/19/20 09:44 DCW [id number]) Lumbar Spine Range of Motion Lumbar Spine Active Degrees Testing Position Standing Flexion 20 Extension 10 ROM Limitations Soft Tissue Tightness,Bony Restriction,Muscle Weakness, Muscle Tone,Pain Comments When attempting to stand upright, pt is still flexed forward 10?, and then despite appearing to have good forward flexion, his lumbar spine only flexes to 20?, and the remainder of the movement comes from his hip. PT-OP-M Strength Start: 03/18/20 17:40 Freq: Status: Active Protocol: Document 03/18/20 14:30 DCW (Rec: 03/19/20 17:21 DCW [id number]) Hip Strength Hip Manual Muscle Testing Right Flexion (L2) 3+ Fair+ Abduction 4 Good Adduction 4 Good Left Flexion (L2) 4+ Good+ Abduction 4+ Good+ Adduction 4+ Good+ Knee Strength Knee Manual Muscle Testing Right Flexion (S2) 4+ Good+ Extension (L3) 4+ Good+ Left Flexion (S2) 4+ Good+ Extension (L3) 4+ Good+ Ankle/Foot Strength Ankle and Foot Manual Muscle Testing Right Dorsiflexion (L4) 3+ Fair+ Plantarflexion (S1) 4 Good Left Dorsiflexion (L4) 4+ Good+ Plantarflexion (S1) 4+ Good+ PT-OP-Q Treatments Start: 03/18/20 17:40 Freq: Status: Active Protocol: Document 04/22/20 11:18 HH (Rec: 04/22/20 12:10 HH [id number]) Therapeutic Exercises Supine Exercises ankle DF Side bilateral Equipment Used level 2 Reps/Minutes 8 x2 Comments improved R ankle DF noted. pelvic tilt Supine Exercise Name APT to PPT Side bilateral Reps/Minutes 10 x2 Comments able to do it indpeendently bridging Supine Exercise Name slight pain noted Side bilateral Reps/Minutes 5 x3 Comments improved height noted. Sidelying Exercises clamshell Side bilateral Reps/Minutes 8 x2 Comments improved ROM noted with good control hip extension Sidelying Exercise Name against PT resistance, unilateral hip extension Side bilateral Reps/Minutes 8 x2 Comments no pain noted. Standing Exercises trunk extension Side bilateral Equipment Used grab bar Reps/Minutes 8 x2 Comments sharp shooting pain noted from leaning forward to extension 1 Standing Exercise Name pelvic tilt Reps/Minutes 10 times Comments pt presents flexed trunk and difficulty engaging gluteal muscles. Manual Therapy Treatment Manual Traction lateral traction Details R hip Body Position Sidelying Reps/Duration 10 sec hold x 8 Comments MWM with hip flexion, pain decreased after for active hip flexion. Lumbar Body Position Hooklying Reps/Duration 10 sec hold x 8 hip distriction Body Position Supine Reps/Duration 10 sec hold x 8 Comments pt reports of relief at low back PT-OP-T Assessment and Plan Start: 03/18/20 17:40 Freq: Status: Active Protocol: Document 04/22/20 11:18 HH (Rec: 04/22/20 12:10 [id number]) Physical Therapy Assessment Goals Four Impairment Significant limitations in lumbar ROM (10?-20?) Bisque Placer Goal (LTG) Lumbar ROM to improve to 0?-50 ? LTG Duration 05/20/20 Three Impairment Pt demonstrates right foot drop during gait Halfway Goal (LTG) Pt right ankle DF and hip flexion MMT to 4/5, to decrease risk for foot drop and improve gait quality LTG Duration 05/20/20 Two Impairment Pt ambulates 178' (1.43 ft/sec ) using a FWW during a Two Minute Walk Test Short Term Goal (STG) A gait speed less than 1.97 ft /sec has been shown to be a predictor of further functional decline in older adults. Pt to improve his 2 MWT distance to 237' to demonstrate a gate speed of greater than 1.97 ft/sec STG Duration 04/19/20 Halfway Goal (LTG) Pt to complete a six minute walk test with a distance greater than 600' to indicate improved activity tolerance LTG Duration 05/20/20 One Impairment Pt does not have an appropriate home exercise program Short Term Goal (STG) Pt to be independent and compliant with an appropriate HEP STG Duration 04/19/20 Assessment Summary Assessment Pt came in with w/c d/t irritation of his low back. However, pt showed improved R ankle DF, gluteal strength and control for bridging and clamshell and SL hip extension without much pain noted. Pt;s pain tends to increase in WB position. Physical Therapy Plan Next Visit Focus/Plan Next Note Type Treatment Note Next Visit Plan gentle lumbar stretching/ flexibility, hip/ankle strengthening, gait training
--- NOTE | 2020-04-30 09:36 | PT.OTN ---
Current Diagnoses Foot drop, right foot (04/30/20) Stiffness of unspecified joint, not elsewhere classified (04/30/20) Stiffness of right hip, not elsewhere classified (04/30/20) Stiffness of left hip, not elsewhere classified (04/30/20) Radiculopathy, lumbar region (04/30/20) Muscle weakness (generalized) (04/30/20) Other abnormalities of gait and mobility (04/30/20) Physical Therapy Treatment Note PT-OP-A Visit Information Start: 03/18/20 17:40 Freq: Status: Active Protocol: Document 04/30/20 08:46 HH (Rec: 04/30/20 09:36 HH [id number]) Out-Patient Physical Therapy Visit Information Visit Information Visit Type Treatment Note Visit Note pt comes in with 4WW Visit Start Time 08:47 Visit Stop Time 10:30 Total Visit Minutes 42 Visit Number 8 Number of TROUBLE TRACER Visits 0 PT-OP-B Current Condition Start: 03/18/20 17:40 Freq: Status: Active Protocol: Document 03/18/20 14:30 DCW (Rec: 03/18/20 17:52 DCW [id number]) Current Condition History of Current Condition Onset Date Eight weeks Current Complaints weakness, gait difficulty, LBP , decreased activity tolerance History of Current Condition Pt is a 69 year old male presenting eight weeks s/p L4- 5 microdiscectomy. Pt reports he has been experiencing low back pain for years, but about 5 months ago, the pain began to rapidly accelerate, and he was found to have ruptured his L4-5 disc. Unfortunately, due to Covid-19 shutdowns, he was unable to get in to have anything done with it, until he finally underwent a microdiscectomy eight weeks ago. Pt reports that prior to the surgery, he was barely moving around, and feels like he has lost a lot of strength and mobility. Pt reports that he had been experiencing weakness and radicular pain down his left leg prior to surgery, however that has improved, and he now has significant right-sided leg weakness. Pt reports he did not use any assistive device prior to his disc rupture, but has pretty much been using a 4WW ever since. Pt is beginning to notice shoulder pain because he is bearing so much weight through his upper extremities. Reports he currently gets fatigued just walking across the room. Treatment Goals Patient/Caregiver Goals I really want to regain strength in my right leg. PT-OP-C Subjective Start: 03/18/20 17:40 Freq: Status: Active Protocol: Document 04/30/20 08:46 HH (Rec: 04/30/20 09:36 HH [id number]) OP-PT Subjective Patient Comments Patient Comments My sacrum area has been feeling pretty stiff and jasper been using my recumbent bike 30 mins a day. My R foot drop seems to be getting better since i dont notice much. Patient Reported Progress Improving PT-OP-E Functional Tests Start: 03/18/20 17:40 Freq: Status: Active Protocol: Document 03/18/20 14:30 DCW (Rec: 03/19/20 09:44 DCW [id number]) Functional Tests 2 Minute Walk Test Distance 178' Device Used 4WW Comments 1.43 ft/sec PT-OP-F Manual Assessment Start: 03/18/20 17:40 Freq: Status: Active Protocol: Document 03/18/20 14:30 DCW (Rec: 03/19/20 09:44 DCW [id number]) Manual Assessments Soft Tissue Assessment Soft Tissue Mobility Assessment Hypertonia and tenderness to palpation 2/4: Pain with wincing along bilateral piriformis, bilateral hamstring, bilateral psoas. Joint Mobility Assessment Joint Mobility Assessment Minimal mobility through lumbar spine, majority of flexion movement comes from hips. PT-OP-G Mobility & Gait Start: 03/18/20 17:40 Freq: Status: Active Protocol: Document 03/18/20 14:30 DCW (Rec: 03/19/20 09:44 DCW [id number]) OP Gait Assessment Gait Gait Assistance Required: Standby Assistance Distance (Feet) 178 Able to Maintain Weight Bearing Status Yes During Gait Assistive Devices Assistive Device Gait Belt,4 Wheeled Walker Orthotic/Prosthetic Devices or Brace: No Gait Deviations General Gait Pattern Antalgic,Ataxic,Decreased Stride Length,Decreased Feet Clearance,Flexed Trunk,Wide Based Gait Factors Limiting Gait Function Factors Limiting Gait Function Decreased Activity Tolerance, Decreased Strength,Limited Range of Motion,Pain PT-OP-K Range of Motion Start: 03/18/20 17:40 Freq: Status: Active Protocol: Document 03/18/20 14:30 DCW (Rec: 03/19/20 09:44 DCW [id number]) Lumbar Spine Range of Motion Lumbar Spine Active Degrees Testing Position Standing Flexion 20 Extension 10 ROM Limitations Soft Tissue Tightness,Bony Restriction,Muscle Weakness, Muscle Tone,Pain Comments When attempting to stand upright, pt is still flexed forward 10?, and then despite appearing to have good forward flexion, his lumbar spine only flexes to 20?, and the remainder of the movement comes from his hip. PT-OP-M Strength Start: 03/18/20 17:40 Freq: Status: Active Protocol: Document 03/18/20 14:30 DCW (Rec: 03/19/20 17:21 DCW [id number]) Hip Strength Hip Manual Muscle Testing Right Flexion (L2) 3+ Fair+ Abduction 4 Good Adduction 4 Good Left Flexion (L2) 4+ Good+ Abduction 4+ Good+ Adduction 4+ Good+ Knee Strength Knee Manual Muscle Testing Right Flexion (S2) 4+ Good+ Extension (L3) 4+ Good+ Left Flexion (S2) 4+ Good+ Extension (L3) 4+ Good+ Ankle/Foot Strength Ankle and Foot Manual Muscle Testing Right Dorsiflexion (L4) 3+ Fair+ Plantarflexion (S1) 4 Good Left Dorsiflexion (L4) 4+ Good+ Plantarflexion (S1) 4+ Good+ PT-OP-Q Treatments Start: 03/18/20 17:40 Freq: Status: Active Protocol: Document 04/30/20 08:46 HH (Rec: 04/30/20 09:36 HH [id number]) Cardio Equipment Recumbent Stepper (Sci-Fit) Duration (Minutes) 6 Resistance 4.5 Seat Position 13 Therapeutic Exercises Supine Exercises pelvic tilt Supine Exercise Name APT to PPT Side bilateral Reps/Minutes 10 x2 Comments able to do it indpeendently bridging Supine Exercise Name slight pain at coccyx region as pt stated. Side bilateral Reps/Minutes 6 x2 Comments improved height noted. LTR Supine Exercise Name with lumbar rotation Side bilateral Reps/Minutes 10 x 2 Prone Exercises child pose Prone Exercise Name AP rock back Equipment Used elbow on bolster Reps/Minutes 6 x 2 Comments cues on isolated lumbar AROM, pain with extension but subside after reps cat camel Equipment Used elbow on bolster Reps/Minutes 6 x2 Comments cues on isolated lumbar AROM, pain with extension but subside after reps Sidelying Exercises clamshell Side bilateral Reps/Minutes 8 x2 Comments improved ROM noted with good control Manual Therapy Treatment Manual Traction Lumbar Body Position Hooklying Reps/Duration 10 sec hold x 8 hip distriction Body Position Supine Reps/Duration 10 sec hold x 8 PT-OP-T Assessment and Plan Start: 03/18/20 17:40 Freq: Status: Active Protocol: Document 04/30/20 08:46 HH (Rec: 04/30/20 09:36 HH [id number]) Physical Therapy Assessment Goals Four Impairment Significant limitations in lumbar ROM (10?-20?) Lehr Operator Goal (LTG) Lumbar ROM to improve to 0?-50 ? LTG Duration 05/20/20 Three Impairment Pt demonstrates right foot drop during gait Halfway Goal (LTG) Pt right ankle DF and hip flexion MMT to 4/5, to decrease risk for foot drop and improve gait quality LTG Duration 05/20/20 Two Impairment Pt ambulates 178' (1.43 ft/sec ) using a FWW during a Two Minute Walk Test Short Term Goal (STG) A gait speed less than 1.97 ft /sec has been shown to be a predictor of further functional decline in older adults. Pt to improve his 2 MWT distance to 237' to demonstrate a gate speed of greater than 1.97 ft/sec STG Duration 04/19/20 Lehr Operator Goal (LTG) Pt to complete a six minute walk test with a distance greater than 600' to indicate improved activity tolerance LTG Duration 05/20/20 One Impairment Pt does not have an appropriate home exercise program Short Term Goal (STG) Pt to be independent and compliant with an appropriate HEP STG Duration 04/19/20 Assessment Summary Assessment Pt has improved gluteal engagement and endurance today for pelvic tilt and bridging. Pt also noticed less R foot drop lately. Introduced cat camel and child pose today, pt initially has sacral pain with lumbar extension but subside after repetitions. will cont monitor. Physical Therapy Plan Next Visit Focus/Plan Next Note Type Treatment Note Next Visit Plan gentle lumbar stretching/ flexibility, hip/ankle strengthening, gait training
--- NOTE | 2020-05-02 09:16 | PT.OTN ---
Current Diagnoses Foot drop, right foot (05/02/20) Stiffness of unspecified joint, not elsewhere classified (05/02/20) Stiffness of right hip, not elsewhere classified (05/02/20) Stiffness of left hip, not elsewhere classified (05/02/20) Radiculopathy, lumbar region (05/02/20) Muscle weakness (generalized) (05/02/20) Other abnormalities of gait and mobility (05/02/20) Physical Therapy Treatment Note PT-OP-A Visit Information Start: 03/18/20 17:40 Freq: Status: Active Protocol: Document 05/02/20 08:16 HH (Rec: 05/02/20 09:16 HH [id number]) Out-Patient Physical Therapy Visit Information Visit Information Visit Type Treatment Note Visit Note pt comes in with WC Visit Start Time 08:16 Visit Stop Time 09:00 Total Visit Minutes 44 Visit Number 9 Number of FLYING TEACHER Visits 0 PT-OP-B Current Condition Start: 03/18/20 17:40 Freq: Status: Active Protocol: Document 03/18/20 14:30 DCW (Rec: 03/18/20 17:52 DCW [id number]) Current Condition History of Current Condition Onset Date Eight weeks Current Complaints weakness, gait difficulty, LBP , decreased activity tolerance History of Current Condition Pt is a 69 year old male presenting eight weeks s/p L4- 5 microdiscectomy. Pt reports he has been experiencing low back pain for years, but about 5 months ago, the pain began to rapidly accelerate, and he was found to have ruptured his L4-5 disc. Unfortunately, due to Covid-19 shutdowns, he was unable to get in to have anything done with it, until he finally underwent a microdiscectomy eight weeks ago. Pt reports that prior to the surgery, he was barely moving around, and feels like he has lost a lot of strength and mobility. Pt reports that he had been experiencing weakness and radicular pain down his left leg prior to surgery, however that has improved, and he now has significant right-sided leg weakness. Pt reports he did not use any assistive device prior to his disc rupture, but has pretty much been using a 4WW ever since. Pt is beginning to notice shoulder pain because he is bearing so much weight through his upper extremities. Reports he currently gets fatigued just walking across the room. Treatment Goals Patient/Caregiver Goals I really want to regain strength in my right leg. PT-OP-C Subjective Start: 03/18/20 17:40 Freq: Status: Active Protocol: Document 05/02/20 08:16 HH (Rec: 05/02/20 09:16 HH [id number]) OP-PT Subjective Patient Comments Patient Comments My sacrum area got sore from last visit and still recovering. Patient Reported Progress Improving PT-OP-E Functional Tests Start: 03/18/20 17:40 Freq: Status: Active Protocol: Document 03/18/20 14:30 DCW (Rec: 03/19/20 09:44 DCW [id number]) Functional Tests 2 Minute Walk Test Distance 178' Device Used 4WW Comments 1.43 ft/sec PT-OP-F Manual Assessment Start: 03/18/20 17:40 Freq: Status: Active Protocol: Document 03/18/20 14:30 DCW (Rec: 03/19/20 09:44 DCW [id number]) Manual Assessments Soft Tissue Assessment Soft Tissue Mobility Assessment Hypertonia and tenderness to palpation 2/4: Pain with wincing along bilateral piriformis, bilateral hamstring, bilateral psoas. Joint Mobility Assessment Joint Mobility Assessment Minimal mobility through lumbar spine, majority of flexion movement comes from hips. PT-OP-G Mobility & Gait Start: 03/18/20 17:40 Freq: Status: Active Protocol: Document 03/18/20 14:30 DCW (Rec: 03/19/20 09:44 DCW [id number]) OP Gait Assessment Gait Gait Assistance Required: Standby Assistance Distance (Feet) 178 Able to Maintain Weight Bearing Status Yes During Gait Assistive Devices Assistive Device Gait Belt,4 Wheeled Walker Orthotic/Prosthetic Devices or Brace: No Gait Deviations General Gait Pattern Antalgic,Ataxic,Decreased Stride Length,Decreased Feet Clearance,Flexed Trunk,Wide Based Gait Factors Limiting Gait Function Factors Limiting Gait Function Decreased Activity Tolerance, Decreased Strength,Limited Range of Motion,Pain PT-OP-K Range of Motion Start: 03/18/20 17:40 Freq: Status: Active Protocol: Document 03/18/20 14:30 DCW (Rec: 03/19/20 09:44 DCW [id number]) Lumbar Spine Range of Motion Lumbar Spine Active Degrees Testing Position Standing Flexion 20 Extension 10 ROM Limitations Soft Tissue Tightness,Bony Restriction,Muscle Weakness, Muscle Tone,Pain Comments When attempting to stand upright, pt is still flexed forward 10?, and then despite appearing to have good forward flexion, his lumbar spine only flexes to 20?, and the remainder of the movement comes from his hip. PT-OP-M Strength Start: 03/18/20 17:40 Freq: Status: Active Protocol: Document 03/18/20 14:30 DCW (Rec: 03/19/20 17:21 DCW [id number]) Hip Strength Hip Manual Muscle Testing Right Flexion (L2) 3+ Fair+ Abduction 4 Good Adduction 4 Good Left Flexion (L2) 4+ Good+ Abduction 4+ Good+ Adduction 4+ Good+ Knee Strength Knee Manual Muscle Testing Right Flexion (S2) 4+ Good+ Extension (L3) 4+ Good+ Left Flexion (S2) 4+ Good+ Extension (L3) 4+ Good+ Ankle/Foot Strength Ankle and Foot Manual Muscle Testing Right Dorsiflexion (L4) 3+ Fair+ Plantarflexion (S1) 4 Good Left Dorsiflexion (L4) 4+ Good+ Plantarflexion (S1) 4+ Good+ PT-OP-Q Treatments Start: 03/18/20 17:40 Freq: Status: Active Protocol: Document 05/02/20 08:16 HH (Rec: 05/02/20 09:16 HH [id number]) Gym Equipment Shuttle Recovery B squat Resistance #50-75# Shuttle Recovery Platform Stable Reps/Time 12 x 2 Therapeutic Exercises Supine Exercises pelvic tilt Supine Exercise Name APT to PPT Side bilateral Reps/Minutes 4 x2 Comments pain noted today bridging Supine Exercise Name slight pain at coccyx region as pt stated. Side bilateral Reps/Minutes 4 Comments pain noted today LTR Supine Exercise Name with lumbar rotation Side bilateral Reps/Minutes 10 x 2 Prone Exercises child pose Prone Exercise Name AP rock back Equipment Used elbow on bolster Reps/Minutes 6 x 2 Comments min pain noted. cat camel Equipment Used elbow on bolster Reps/Minutes 6 x2 Comments min pain noted. Sidelying Exercises clamshell Side bilateral Reps/Minutes 8 x2 Comments no discomfort noted Sitting Exercises seated reaching Sitting Exercise Name forward reaching Equipment Used marrero therapy ball Reps/Minutes 4 mins Comments not discomfort noted. Manual Therapy Treatment Soft Tissue Mobilization glute and piriformis Mobilization Type Rolling,Sustained Pressure, Trigger Point Release Intensity/Depth Moderate Body Position Sidelying Comments tenderness noted. PT-OP-T Assessment and Plan Start: 03/18/20 17:40 Freq: Status: Active Protocol: Document 05/02/20 08:16 (Rec: 05/02/20 09:16 [id number]) Physical Therapy Assessment Goals Four Impairment Significant limitations in lumbar ROM (10?-20?) Nursing Home Goal (LTG) Lumbar ROM to improve to 0?-50 ? LTG Duration 05/20/20 Three Impairment Pt demonstrates right foot drop during gait Nursing Home Goal (LTG) Pt right ankle DF and hip flexion MMT to 4/5, to decrease risk for foot drop and improve gait quality LTG Duration 05/20/20 Two Impairment Pt ambulates 178' (1.43 ft/sec ) using a FWW during a Two Minute Walk Test Short Term Goal (STG) A gait speed less than 1.97 ft /sec has been shown to be a predictor of further functional decline in older adults. Pt to improve his 2 MWT distance to 237' to demonstrate a gate speed of greater than 1.97 ft/sec STG Duration 04/19/20 Education Assistant Goal (LTG) Pt to complete a six minute walk test with a distance greater than 600' to indicate improved activity tolerance LTG Duration 05/20/20 One Impairment Pt does not have an appropriate home exercise program Short Term Goal (STG) Pt to be independent and compliant with an appropriate HEP STG Duration 04/19/20 Assessment Summary Assessment pt cont to be very pain sensitive for any lumbar movements especially in WB position. Pt is currently waiting for result from his care team (orthopedics and publications inspector) Pt does have less pain today for cat camel and semi child pose. Physical Therapy Plan Next Visit Focus/Plan Next Note Type Treatment Note Next Visit Plan gentle lumbar stretching/ flexibility, hip/ankle strengthening, gait training
--- NOTE | 2020-05-17 09:03 | PT.OTN ---
Current Diagnoses Foot drop, right foot (05/17/20) Stiffness of unspecified joint, not elsewhere classified (05/17/20) Stiffness of right hip, not elsewhere classified (05/17/20) Stiffness of left hip, not elsewhere classified (05/17/20) Radiculopathy, lumbar region (05/17/20) Muscle weakness (generalized) (05/17/20) Other abnormalities of gait and mobility (05/17/20) Physical Therapy Treatment Note PT-OP-A Visit Information Start: 03/18/20 17:40 Freq: Status: Active Protocol: Document 05/17/20 08:20 SP (Rec: 05/17/20 11:54 SP [id number]) Out-Patient Physical Therapy Visit Information Visit Information Visit Type Treatment Note Visit Note Pt arrived using FWW, to low but doesn't extend to his required height. Visit Start Time 08:20 Visit Stop Time 09:03 Total Visit Minutes 43 Visit Number 10 Number of GLAZE SUPERVISOR Visits 1 PT-OP-B Current Condition Start: 03/18/20 17:40 Freq: Status: Active Protocol: Document 03/18/20 14:30 DCW (Rec: 03/18/20 17:52 DCW [id number]) Current Condition History of Current Condition Onset Date Eight weeks Current Complaints weakness, gait difficulty, LBP , decreased activity tolerance History of Current Condition Pt is a 69 year old male presenting eight weeks s/p L4- 5 microdiscectomy. Pt reports he has been experiencing low back pain for years, but about 5 months ago, the pain began to rapidly accelerate, and he was found to have ruptured his L4-5 disc. Unfortunately, due to Covid-19 shutdowns, he was unable to get in to have anything done with it, until he finally underwent a microdiscectomy eight weeks ago. Pt reports that prior to the surgery, he was barely moving around, and feels like he has lost a lot of strength and mobility. Pt reports that he had been experiencing weakness and radicular pain down his left leg prior to surgery, however that has improved, and he now has significant right-sided leg weakness. Pt reports he did not use any assistive device prior to his disc rupture, but has pretty much been using a 4WW ever since. Pt is beginning to notice shoulder pain because he is bearing so much weight through his upper extremities. Reports he currently gets fatigued just walking across the room. Treatment Goals Patient/Caregiver Goals I really want to regain strength in my right leg. PT-OP-C Subjective Start: 03/18/20 17:40 Freq: Status: Active Protocol: Document 05/17/20 08:20 SP (Rec: 05/17/20 11:54 SP [id number]) OP-PT Subjective Patient Comments Patient Comments Pt reports doing alot better last 2 weeks I can turn over, in/ out bed with alot less pain, walking further distance using walking sticks parkinglot to pharmacy PT-OP-E Functional Tests Start: 03/18/20 17:40 Freq: Status: Active Protocol: Document 03/18/20 14:30 DCW (Rec: 03/19/20 09:44 DCW [id number]) Functional Tests 2 Minute Walk Test Distance 178' Device Used 4WW Comments 1.43 ft/sec PT-OP-F Manual Assessment Start: 03/18/20 17:40 Freq: Status: Active Protocol: Document 03/18/20 14:30 DCW (Rec: 03/19/20 09:44 DCW [id number]) Manual Assessments Soft Tissue Assessment Soft Tissue Mobility Assessment Hypertonia and tenderness to palpation 2/4: Pain with wincing along bilateral piriformis, bilateral hamstring, bilateral psoas. Joint Mobility Assessment Joint Mobility Assessment Minimal mobility through lumbar spine, majority of flexion movement comes from hips. PT-OP-G Mobility & Gait Start: 03/18/20 17:40 Freq: Status: Active Protocol: Document 03/18/20 14:30 DCW (Rec: 03/19/20 09:44 DCW [id number]) OP Gait Assessment Gait Gait Assistance Required: Standby Assistance Distance (Feet) 178 Able to Maintain Weight Bearing Status Yes During Gait Assistive Devices Assistive Device Gait Belt,4 Wheeled Walker Orthotic/Prosthetic Devices or Brace: No Gait Deviations General Gait Pattern Antalgic,Ataxic,Decreased Stride Length,Decreased Feet Clearance,Flexed Trunk,Wide Based Gait Factors Limiting Gait Function Factors Limiting Gait Function Decreased Activity Tolerance, Decreased Strength,Limited Range of Motion,Pain PT-OP-K Range of Motion Start: 03/18/20 17:40 Freq: Status: Active Protocol: Document 03/18/20 14:30 DCW (Rec: 03/19/20 09:44 DCW [id number]) Lumbar Spine Range of Motion Lumbar Spine Active Degrees Testing Position Standing Flexion 20 Extension 10 ROM Limitations Soft Tissue Tightness,Bony Restriction,Muscle Weakness, Muscle Tone,Pain Comments When attempting to stand upright, pt is still flexed forward 10?, and then despite appearing to have good forward flexion, his lumbar spine only flexes to 20?, and the remainder of the movement comes from his hip. PT-OP-M Strength Start: 03/18/20 17:40 Freq: Status: Active Protocol: Document 03/18/20 14:30 DCW (Rec: 03/19/20 17:21 DCW [id number]) Hip Strength Hip Manual Muscle Testing Right Flexion (L2) 3+ Fair+ Abduction 4 Good Adduction 4 Good Left Flexion (L2) 4+ Good+ Abduction 4+ Good+ Adduction 4+ Good+ Knee Strength Knee Manual Muscle Testing Right Flexion (S2) 4+ Good+ Extension (L3) 4+ Good+ Left Flexion (S2) 4+ Good+ Extension (L3) 4+ Good+ Ankle/Foot Strength Ankle and Foot Manual Muscle Testing Right Dorsiflexion (L4) 3+ Fair+ Plantarflexion (S1) 4 Good Left Dorsiflexion (L4) 4+ Good+ Plantarflexion (S1) 4+ Good+ PT-OP-Q Treatments Start: 03/18/20 17:40 Freq: Status: Active Protocol: Document 05/17/20 08:20 SP (Rec: 05/17/20 11:54 SP [id number]) Gym Equipment Shuttle Recovery B squat Resistance #50-75# Shuttle Recovery Platform Stable Reps/Time 12 x 2 uni squat Resistance #50 Shuttle Recovery Platform Stable Reps/Time focus on heel push off Therapeutic Exercises Supine Exercises Nimesh Stretch Side right Reps/Minutes 30 x2 pelvic tilt Supine Exercise Name APT to PPT Side bilateral Reps/Minutes 4 x2 Comments pain noted today bridging Supine Exercise Name slight pain at coccyx region as pt stated. Side bilateral Reps/Minutes 4 Comments pain noted today LTR Supine Exercise Name with lumbar rotation Side bilateral Equipment Used 55cm SB Reps/Minutes 10 x 2 Prone Exercises child pose Prone Exercise Name AP rock back Equipment Used elbow on bolster Reps/Minutes 6 x 2 Comments min pain noted. cat camel Equipment Used elbow on bolster Reps/Minutes 6 x2 Comments min pain noted. Manual Therapy Treatment Soft Tissue Mobilization glute and piriformis Body Location R glut, pirform, TFL, sartorius, prox rec fem Mobilization Type Rolling,Sustained Pressure, Trigger Point Release Intensity/Depth Moderate Body Position Sidelying Comments tenderness noted. Self STMs racquetball at wall- good tolerance and results end of tx. Manual Techniques rolling stick R quad, ITB, TFL Type Nimesh stretch position Body Location R Body Position Supine Reps/Duration 2 min PT-OP-T Assessment and Plan Start: 03/18/20 17:40 Freq: Status: Active Protocol: Document 05/17/20 08:20 SP (Rec: 05/17/20 11:54 SP [id number]) Physical Therapy Assessment Goals Four Impairment Significant limitations in lumbar ROM (10?-20?) Jail Goal (LTG) Lumbar ROM to improve to 0?-50 ? LTG Duration 05/20/20 Three Impairment Pt demonstrates right foot drop during gait [employer] Mill Worker Goal (LTG) Pt right ankle DF and hip flexion MMT to 4/5, to decrease risk for foot drop and improve gait quality LTG Duration 05/20/20 Two Impairment Pt ambulates 178' (1.43 ft/sec ) using a FWW during a Two Minute Walk Test Short Term Goal (STG) A gait speed less than 1.97 ft /sec has been shown to be a predictor of further functional decline in older adults. Pt to improve his 2 MWT distance to 237' to demonstrate a gate speed of greater than 1.97 ft/sec STG Duration 04/19/20 Jail Goal (LTG) Pt to complete a six minute walk test with a distance greater than 600' to indicate improved activity tolerance LTG Duration 05/20/20 One Impairment Pt does not have an appropriate home exercise program Short Term Goal (STG) Pt to be independent and compliant with an appropriate HEP STG Duration 04/19/20 Assessment Summary Assessment Pt arrrived using low 4WW, unable to raise for appropriate height. Used PT clinic walking sticks (to low) with improvement in posture during short distance gait, instructed to bring his personal ones uses in public next tx. Tx focused on manual, stretching and HEP review to improve pain with good result feedback. Pt able to walk with decreased pain reported. Tolerated added racquetball at wall self STMs to Pirformis to decreased pain on own. Intiated LTR with SB with good control TA. Occasional cuing for core facilitation awareness during exercises. Physical Therapy Plan Frequency and Duration Frequency of Treatment 2x/Week Duration of Treatment 8 weeks Plan of Care Start Date 04/16/20 Plan of Care End Date 06/15/20 Therapeutic Interventions Therapeutic Interventions Balance Training,Gait Training ,Home Exercise Program,Joint Mobilizations,Manual Therapy, Neuromuscular Re-education, Patient/Caregiver Education, Self-Care/Home Management,Soft Tissue Mobilization, Therapeutic Activities, Therapeutic Exercises Modalities Cold Pack/Ice Massage,Electric Stimulation,Hot Packs, Ultrasound Next Visit Focus/Plan Next Note Type Treatment Note Next Visit Plan Assess last tx response: manual, STMs self racquetball, rolling stick, HEP reivew. Continue per PT POC: gentle lumbar stretching/flexibility, hip/ankle strengthening, gait training
--- NOTE | 2020-05-20 17:00 | PT.OPPOC ---
Physical, Occupational & Speech Therapy At [facility] Current Diagnoses Foot drop, right foot (05/20/20) Stiffness of unspecified joint, not elsewhere classified (05/20/20) Stiffness of right hip, not elsewhere classified (05/20/20) Stiffness of left hip, not elsewhere classified (05/20/20) Radiculopathy, lumbar region (05/20/20) Muscle weakness (generalized) (05/20/20) Other abnormalities of gait and mobility (05/20/20) Visit Care Team Role Provider Type Robin Lee MD Family Provider Physician Primary Care Provider Specialty: Internal Medicine Address: [address] [place] [address], [phone] Email: [email or web address] Shaka Reeves MD Attending Provider Non-Staff Referring Provider Specialty: Medical Address: [address] [place] [address], [phone] Email: Plan Of Care PT-OP-T Assessment and Plan Start: 03/18/20 17:40 Freq: Status: Active Protocol: Document 05/20/20 15:50 HH (Rec: 05/20/20 16:45 HH [id number]) Physical Therapy Assessment Goals amb Impairment pt currently amb with 4WW at all times Short Term Goal (STG) pt will be able to amb without 4WW for household distance. STG Duration [address]/Medical Interpreter Goal (LTG) pt will be able to amb without 4WW for community distance LTG Duration 12 weeks Four Impairment Significant limitations in lumbar ROM (10?-20?) Short Term Goal (STG) 05/20 pt is able to complete active trunk flexion and extension with mild discomfort. Cont to have difficulty with isolated lumbar flexion. Halfway Goal (LTG) Lumbar ROM to improve to 0?-50 ? LTG Duration 05/20/20 Three Impairment Pt demonstrates right foot drop during gait Short Term Goal (STG) 05/20 goal met Pt stated he doesnt have R foot drop at this point and strength is at 4/5, R hip 4- to 4/5. Certified Court/Medical Interpreter Goal (LTG) Pt right ankle DF and hip flexion MMT to 4/5, to decrease risk for foot drop and improve gait quality LTG Duration 05/20/20 Two Impairment Pt ambulates 178' (1.43 ft/sec ) using a FWW during a Two Minute Walk Test Short Term Goal (STG) will assess next visit A gait speed less than 1.97 ft /sec has been shown to be a predictor of further functional decline in older adults. Pt to improve his 2 MWT distance to 237' to demonstrate a gate speed of greater than 1.97 ft/sec STG Duration 04/19/[address]/Medical Interpreter Goal (LTG) Pt to complete a six minute walk test with a distance greater than 600' to indicate improved activity tolerance LTG Duration 05/20/20 One Impairment Pt does not have an appropriate home exercise program Short Term Goal (STG) 05/20 cont in progress pt stated that he is not that compliant with HEP but HEP did help him Pt to be independent and compliant with an appropriate HEP STG Duration 06/19 Assessment Summary Assessment Pt has shown improvements with his back pain, mobility tolerance. He has been able to amb 4WW for longer distance and with minimal discomfort for bed mobility and transfers . He shows improved gluteal strength as well. However, his progress has been slow d/t scheduling unavailability and pt stated that he is not that compliant with HEP and this PT spent time this session to educate him on rehab commitment so he can return to [facility]. Pt is going to consult neurologist on Wednesday for further workup. Meanwhile, this is possibly going to be a long rehab since pt has significant lack of lumbar ROM , weakness and poor compliance for HEP. Physical Therapy Plan Frequency and Duration Frequency of Treatment 2x/Week Duration of Treatment 12 weeks Plan of Care Start Date 05/20/20 Plan of Care End Date 09/17/20 Next Visit Focus/Plan Next Note Type Treatment Note Next Visit Plan check HEP check 2mins walk Continue per PT POC: gentle lumbar stretching/flexibility, hip/ankle strengthening, gait training Plan of Care Dates Plan of Care Start Date 05/20/20 Plan of Care End Date 09/17/20 Electronically Signed by: Willie Uribe, PT 05/21/20 1301 Please Sign and Return: I have reviewed this Plan of Care and certify that the skilled therapy services above are required to meet the patient?s needs. Physician Signature Date Printed Name and Credentials Clinical Instructor Signature Printed Name and Credentials
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
--- NOTE | 2020-05-23 09:07 | PT.OTN ---
Current Diagnoses Foot drop, right foot (05/23/20) Stiffness of unspecified joint, not elsewhere classified (05/23/20) Stiffness of right hip, not elsewhere classified (05/23/20) Stiffness of left hip, not elsewhere classified (05/23/20) Radiculopathy, lumbar region (05/23/20) Muscle weakness (generalized) (05/23/20) Other abnormalities of gait and mobility (05/23/20) Physical Therapy Treatment Note PT-OP-A Visit Information Start: 03/18/20 17:40 Freq: Status: Active Protocol: Document 05/23/20 08:15 HH (Rec: 05/23/20 09:06 HH [id number]) Out-Patient Physical Therapy Visit Information Visit Information Visit Type Treatment Note Visit Start Time 08:17 Visit Stop Time 09:00 Total Visit Minutes 43 Visit Number 12 Number of LORRY WEIGHER Visits 0 PT-OP-B Current Condition Start: 03/18/20 17:40 Freq: Status: Active Protocol: Document 03/18/20 14:30 DCW (Rec: 03/18/20 17:52 DCW [id number]) Current Condition History of Current Condition Onset Date Eight weeks Current Complaints weakness, gait difficulty, LBP , decreased activity tolerance History of Current Condition Pt is a 69 year old male presenting eight weeks s/p L4- 5 microdiscectomy. Pt reports he has been experiencing low back pain for years, but about 5 months ago, the pain began to rapidly accelerate, and he was found to have ruptured his L4-5 disc. Unfortunately, due to Covid-19 shutdowns, he was unable to get in to have anything done with it, until he finally underwent a microdiscectomy eight weeks ago. Pt reports that prior to the surgery, he was barely moving around, and feels like he has lost a lot of strength and mobility. Pt reports that he had been experiencing weakness and radicular pain down his left leg prior to surgery, however that has improved, and he now has significant right-sided leg weakness. Pt reports he did not use any assistive device prior to his disc rupture, but has pretty much been using a 4WW ever since. Pt is beginning to notice shoulder pain because he is bearing so much weight through his upper extremities. Reports he currently gets fatigued just walking across the room. Treatment Goals Patient/Caregiver Goals I really want to regain strength in my right leg. 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 I still have do more testing such as brain MRI, cervical MRI, Nerve conduction studay. Patient Reported Progress Improving PT-OP-E Functional Tests Start: 03/18/20 17:40 Freq: Status: Active Protocol: Document 03/18/20 14:30 DCW (Rec: 03/19/20 09:44 DCW [id number]) Functional Tests 2 Minute Walk Test Distance 178' Device Used 4WW Comments 1.43 ft/sec PT-OP-F Manual Assessment Start: 03/18/20 17:40 Freq: Status: Active Protocol: Document 03/18/20 14:30 DCW (Rec: 03/19/20 09:44 DCW [id number]) Manual Assessments Soft Tissue Assessment Soft Tissue Mobility Assessment Hypertonia and tenderness to palpation 2/4: Pain with wincing along bilateral piriformis, bilateral hamstring, bilateral psoas. Joint Mobility Assessment Joint Mobility Assessment Minimal mobility through lumbar spine, majority of flexion movement comes from hips. PT-OP-G Mobility & Gait Start: 03/18/20 17:40 Freq: Status: Active Protocol: Document 03/18/20 14:30 DCW (Rec: 03/19/20 09:44 DCW [id number]) OP Gait Assessment Gait Gait Assistance Required: Standby Assistance Distance (Feet) 178 Able to Maintain Weight Bearing Status Yes During Gait Assistive Devices Assistive Device Gait Belt,4 Wheeled Walker Orthotic/Prosthetic Devices or Brace: No Gait Deviations General Gait Pattern Antalgic,Ataxic,Decreased Stride Length,Decreased Feet Clearance,Flexed Trunk,Wide Based Gait Factors Limiting Gait Function Factors Limiting Gait Function Decreased Activity Tolerance, Decreased Strength,Limited Range of Motion,Pain PT-OP-K Range of Motion Start: 03/18/20 17:40 Freq: Status: Active Protocol: Document 03/18/20 14:30 DCW (Rec: 03/19/20 09:44 DCW [id number]) Lumbar Spine Range of Motion Lumbar Spine Active Degrees Testing Position Standing Flexion 20 Extension 10 ROM Limitations Soft Tissue Tightness,Bony Restriction,Muscle Weakness, Muscle Tone,Pain Comments When attempting to stand upright, pt is still flexed forward 10?, and then despite appearing to have good forward flexion, his lumbar spine only flexes to 20?, and the remainder of the movement comes from his hip. PT-OP-M Strength Start: 03/18/20 17:40 Freq: Status: Active Protocol: Document 03/18/20 14:30 DCW (Rec: 03/19/20 17:21 DCW [id number]) Hip Strength Hip Manual Muscle Testing Right Flexion (L2) 3+ Fair+ Abduction 4 Good Adduction 4 Good Left Flexion (L2) 4+ Good+ Abduction 4+ Good+ Adduction 4+ Good+ Knee Strength Knee Manual Muscle Testing Right Flexion (S2) 4+ Good+ Extension (L3) 4+ Good+ Left Flexion (S2) 4+ Good+ Extension (L3) 4+ Good+ Ankle/Foot Strength Ankle and Foot Manual Muscle Testing Right Dorsiflexion (L4) 3+ Fair+ Plantarflexion (S1) 4 Good Left Dorsiflexion (L4) 4+ Good+ Plantarflexion (S1) 4+ Good+ PT-OP-Q Treatments Start: 03/18/20 17:40 Freq: Status: Active Protocol: Document 05/23/20 08:15 HH (Rec: 05/23/20 09:06 HH [id number]) Cardio Equipment Recumbent Stepper (Sci-Fit) Duration (Minutes) 6 Resistance 8 Therapeutic Exercises Supine Exercises HS stretch Side bilateral Reps/Minutes 15 sec hold x 5 pelvic tilt Supine Exercise Name APT to PPT Side bilateral Reps/Minutes 10 x1 Comments no pain noted bridging Side bilateral Reps/Minutes 8 x 2 Comments no pain noted Sitting Exercises seated reach Sitting Exercise Name seated reach to ground Reps/Minutes 8 x2 Comments no discomfort noted seated trunk flexion and extension Sitting Exercise Name with knee flexed first then extended knees Side bilateral Reps/Minutes 10 x2 Comments for HEP, discomfort noted in extension PT-OP-T Assessment and Plan Start: 03/18/20 17:40 Freq: Status: Active Protocol: Document 05/23/20 08:15 HH (Rec: 05/23/20 09:06 [id number]) Physical Therapy Assessment Goals amb Impairment pt currently amb with 4WW at all times Short Term Goal (STG) pt will be able to amb without 4WW for household distance. STG Duration 6 weeks Nickel Plant Operator Goal (LTG) pt will be able to amb without 4WW for community distance LTG Duration 12 weeks Four Impairment Significant limitations in lumbar ROM (10?-20?) Short Term Goal (STG) 05/20 pt is able to complete active trunk flexion and extension with mild discomfort. Cont to have difficulty with isolated lumbar flexion. Nickel Plant Operator Goal (LTG) Lumbar ROM to improve to 0?-50 ? LTG Duration 05/20/20 Three Impairment Pt demonstrates right foot drop during gait Short Term Goal (STG) 05/20 goal met Pt stated he doesnt have R foot drop at this point and strength is at 4/5, R hip 4- to 4/5. [facility] Goal (LTG) Pt right ankle DF and hip flexion MMT to 4/5, to decrease risk for foot drop and improve gait quality LTG Duration 05/20/20 Two Impairment Pt ambulates 332' (1.43 ft/sec ) using a FWW during a Two Minute Walk Test Short Term Goal (STG) 05/23 Pt completed 332 ft with 4WW in 2 mins but shows increased trunk flexion towards last minute. 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 Pt will have more testing done for the next 2 months and neurologist rec him to cont PT. Pt has shown progress with lumbar ROM and decreased pain in general since IE. He also completed 332 ft in 2 mins walk test which is 2x time more than IE. Will cont POC with lumbar ROM focused. Physical Therapy Plan Next Visit Focus/Plan Next Note Type Treatment Note Next Visit Plan check HEP check 2mins walk Continue per PT POC: gentle lumbar stretching/flexibility, hip/ankle strengthening, gait training
--- NOTE | 2020-05-27 13:50 | PT.OTN ---
Current Diagnoses Foot drop, right foot (05/27/20) Stiffness of unspecified joint, not elsewhere classified (05/27/20) Stiffness of right hip, not elsewhere classified (05/27/20) Stiffness of left hip, not elsewhere classified (05/27/20) Radiculopathy, lumbar region (05/27/20) Muscle weakness (generalized) (05/27/20) Other abnormalities of gait and mobility (05/27/20) Physical Therapy Treatment Note PT-OP-A Visit Information Start: 03/18/20 17:40 Freq: Status: Active Protocol: Document 05/27/20 13:01 HH (Rec: 05/27/20 13:50 HH [id number]) Out-Patient Physical Therapy Visit Information Visit Information Visit Type Treatment Note Visit Note brain MRI and NCV in a few weeks. Visit Start Time 13:00 Visit Stop Time 13:45 Total Visit Minutes 45 Visit Number 13 Number of VICE PRESIDENT [employer]ATIONS Visits 0 PT-OP-B Current Condition Start: 03/18/20 17:40 Freq: Status: Active Protocol: Document 03/18/20 14:30 DCW (Rec: 03/18/20 17:52 DCW [id number]) Current Condition History of Current Condition Onset Date Eight weeks Current Complaints weakness, gait difficulty, LBP , decreased activity tolerance History of Current Condition Pt is a 69 year old male presenting eight weeks s/p L4- 5 microdiscectomy. Pt reports he has been experiencing low back pain for years, but about 5 months ago, the pain began to rapidly accelerate, and he was found to have ruptured his L4-5 disc. Unfortunately, due to Covid-19 shutdowns, he was unable to get in to have anything done with it, until he finally underwent a microdiscectomy eight weeks ago. Pt reports that prior to the surgery, he was barely moving around, and feels like he has lost a lot of strength and mobility. Pt reports that he had been experiencing weakness and radicular pain down his left leg prior to surgery, however that has improved, and he now has significant right-sided leg weakness. Pt reports he did not use any assistive device prior to his disc rupture, but has pretty much been using a 4WW ever since. Pt is beginning to notice shoulder pain because he is bearing so much weight through his upper extremities. Reports he currently gets fatigued just walking across the room. Treatment Goals Patient/Caregiver Goals I really want to regain strength in my right leg. PT-OP-C Subjective Start: 03/18/20 17:40 Freq: Status: Active Protocol: Document 05/27/20 13:01 HH (Rec: 05/27/20 13:50 HH [id number]) OP-PT Subjective Patient Comments Patient Comments It's getting better everyday and able to walk better. Getting better especially in and out of the bed. Patient Reported Progress Improving PT-OP-E Functional Tests Start: 03/18/20 17:40 Freq: Status: Active Protocol: Document 03/18/20 14:30 DCW (Rec: 03/19/20 09:44 DCW [id number]) Functional Tests 2 Minute Walk Test Distance 178' Device Used 4WW Comments 1.43 ft/sec PT-OP-F Manual Assessment Start: 03/18/20 17:40 Freq: Status: Active Protocol: Document 03/18/20 14:30 DCW (Rec: 03/19/20 09:44 DCW [id number]) Manual Assessments Soft Tissue Assessment Soft Tissue Mobility Assessment Hypertonia and tenderness to palpation 2/4: Pain with wincing along bilateral piriformis, bilateral hamstring, bilateral psoas. Joint Mobility Assessment Joint Mobility Assessment Minimal mobility through lumbar spine, majority of flexion movement comes from hips. PT-OP-G Mobility & Gait Start: 03/18/20 17:40 Freq: Status: Active Protocol: Document 03/18/20 14:30 DCW (Rec: 03/19/20 09:44 DCW [id number]) OP Gait Assessment Gait Gait Assistance Required: Standby Assistance Distance (Feet) 178 Able to Maintain Weight Bearing Status Yes During Gait Assistive Devices Assistive Device Gait Belt,4 Wheeled Walker Orthotic/Prosthetic Devices or Brace: No Gait Deviations General Gait Pattern Antalgic,Ataxic,Decreased Stride Length,Decreased Feet Clearance,Flexed Trunk,Wide Based Gait Factors Limiting Gait Function Factors Limiting Gait Function Decreased Activity Tolerance, Decreased Strength,Limited Range of Motion,Pain PT-OP-K Range of Motion Start: 03/18/20 17:40 Freq: Status: Active Protocol: Document 03/18/20 14:30 DCW (Rec: 03/19/20 09:44 DCW [id number]) Lumbar Spine Range of Motion Lumbar Spine Active Degrees Testing Position Standing Flexion 20 Extension 10 ROM Limitations Soft Tissue Tightness,Bony Restriction,Muscle Weakness, Muscle Tone,Pain Comments When attempting to stand upright, pt is still flexed forward 10?, and then despite appearing to have good forward flexion, his lumbar spine only flexes to 20?, and the remainder of the movement comes from his hip. PT-OP-M Strength Start: 03/18/20 17:40 Freq: Status: Active Protocol: Document 03/18/20 14:30 DCW (Rec: 03/19/20 17:21 DCW [id number]) Hip Strength Hip Manual Muscle Testing Right Flexion (L2) 3+ Fair+ Abduction 4 Good Adduction 4 Good Left Flexion (L2) 4+ Good+ Abduction 4+ Good+ Adduction 4+ Good+ Knee Strength Knee Manual Muscle Testing Right Flexion (S2) 4+ Good+ Extension (L3) 4+ Good+ Left Flexion (S2) 4+ Good+ Extension (L3) 4+ Good+ Ankle/Foot Strength Ankle and Foot Manual Muscle Testing Right Dorsiflexion (L4) 3+ Fair+ Plantarflexion (S1) 4 Good Left Dorsiflexion (L4) 4+ Good+ Plantarflexion (S1) 4+ Good+ PT-OP-Q Treatments Start: 03/18/20 17:40 Freq: Status: Active Protocol: Document 05/27/20 13:01 HH (Rec: 05/27/20 13:50 HH [id number]) Gym Equipment Shuttle Balance red Reps/Duration with grab bar support bilaterally Comments unable to maintain balance without support Therapeutic Exercises Supine Exercises HS stretch Side bilateral Reps/Minutes 15 sec hold x 5 Comments improved neural tension today. able to reach close to 90degrees bridging Side bilateral Equipment Used yellow band Reps/Minutes 10 x2 Comments no pain noted Sitting Exercises seated reach Sitting Exercise Name seated reach to ground Reps/Minutes 10 x2 Comments no discomfort noted seated trunk flexion and extension Sitting Exercise Name with knee flexed first then extended knees Side bilateral Reps/Minutes 10 x2 Comments for HEP, discomfort noted in extension Standing Exercises squat Standing Exercise Name hold on to grab bar. Side bilateral Reps/Minutes 8 x2 Comments cues on full hip extension and knee extension PT-OP-T Assessment and Plan Start: 03/18/20 17:40 Freq: Status: Active Protocol: Document 05/27/20 13:01 (Rec: 05/27/20 13:50 [id number]) Physical Therapy Assessment Goals amb Impairment pt currently amb with 4WW at all times Short Term Goal (STG) pt will be able to amb without 4WW for household distance. STG Duration 6 weeks Line Walker Goal (LTG) pt will be able to amb without 4WW for community distance LTG Duration 12 weeks Four Impairment Significant limitations in lumbar ROM (10?-20?) Short Term Goal (STG) 05/20 pt is able to complete active trunk flexion and extension with mild discomfort. Cont to have difficulty with isolated lumbar flexion. Assisted Goal (LTG) Lumbar ROM to improve to 0?-50 ? LTG Duration 05/20/20 Three Impairment Pt demonstrates right foot drop during gait Short Term Goal (STG) 05/20 goal met Pt stated he doesnt have R foot drop at this point and strength is at 4/5, R hip 4- to 4/5. Assisted Goal (LTG) Pt right ankle DF and hip flexion MMT to 4/5, to decrease risk for foot drop and improve gait quality LTG Duration 05/20/20 Two Impairment Pt ambulates 332' (1.43 ft/sec ) using a FWW during a Two Minute Walk Test Short Term Goal (STG) 05/23 Pt completed 332 ft with 4WW in 2 mins but shows increased trunk flexion towards last minute. STG Duration 04/19/20 Line Walker Goal (LTG) Pt to complete a six minute walk test with a distance greater than 600' to indicate improved activity tolerance LTG Duration 05/20/20 One Impairment Pt does not have an appropriate home exercise program Short Term Goal (STG) 05/20 cont in progress pt stated that he is not that compliant with HEP but HEP did help him Pt to be independent and compliant with an appropriate HEP STG Duration 06/19 Assessment Summary Assessment pt shows very good progress today with minimal discomfort for all therex. He is able to tolerate sit to stand and shuttle balance. Will progress to therex in upright position accordingly. Physical Therapy Plan Frequency and Duration Frequency of Treatment 2x/Week Duration of Treatment 12 weeks Plan of Care Start Date 05/20/20 Plan of Care End Date 09/17/20 Next Visit Focus/Plan Next Note Type Treatment Note Next Visit Plan check HEP Continue per PT POC: gentle lumbar stretching/flexibility, hip/ankle strengthening, gait training
--- NOTE | 2020-05-30 16:32 | PT.OTN ---
Current Diagnoses Foot drop, right foot (05/30/20) Stiffness of unspecified joint, not elsewhere classified (05/30/20) Stiffness of right hip, not elsewhere classified (05/30/20) Stiffness of left hip, not elsewhere classified (05/30/20) Radiculopathy, lumbar region (05/30/20) Muscle weakness (generalized) (05/30/20) Other abnormalities of gait and mobility (05/30/20) Physical Therapy Treatment Note PT-OP-A Visit Information Start: 03/18/20 17:40 Freq: Status: Active Protocol: Document 05/30/20 16:26 HH (Rec: 05/30/20 16:32 HH [email or web address]) Out-Patient Physical Therapy Visit Information Visit Information Visit Type Treatment Note Visit Note pt came in with walking sticks today Visit Start Time 13:01 Visit Stop Time 13:45 Total Visit Minutes 44 Visit Number 14 Number of OFFICE MESSENGER Visits 0 PT-OP-B Current Condition Start: 03/18/20 17:40 Freq: Status: Active Protocol: Document 03/18/20 14:30 DCW (Rec: 03/18/20 17:52 DCW [id number]) Current Condition History of Current Condition Onset Date Eight weeks Current Complaints weakness, gait difficulty, LBP , decreased activity tolerance History of Current Condition Pt is a 69 year old male presenting eight weeks s/p L4- 5 microdiscectomy. Pt reports he has been experiencing low back pain for years, but about 5 months ago, the pain began to rapidly accelerate, and he was found to have ruptured his L4-5 disc. Unfortunately, due to Covid-19 shutdowns, he was unable to get in to have anything done with it, until he finally underwent a microdiscectomy eight weeks ago. Pt reports that prior to the surgery, he was barely moving around, and feels like he has lost a lot of strength and mobility. Pt reports that he had been experiencing weakness and radicular pain down his left leg prior to surgery, however that has improved, and he now has significant right-sided leg weakness. Pt reports he did not use any assistive device prior to his disc rupture, but has pretty much been using a 4WW ever since. Pt is beginning to notice shoulder pain because he is bearing so much weight through his upper extremities. Reports he currently gets fatigued just walking across the room. Treatment Goals Patient/Caregiver Goals I really want to regain strength in my right leg. PT-OP-C Subjective Start: 03/18/20 17:40 Freq: Status: Active Protocol: Document 05/30/20 16:26 HH (Rec: 05/30/20 16:32 HH [email or web address]) OP-PT Subjective Patient Comments Patient Comments Im doing well and i tried to walk 500 steps but it was not easy. I started using walking sticks yesterday Patient Reported Progress Improving PT-OP-E Functional Tests Start: 03/18/20 17:40 Freq: Status: Active Protocol: Document 03/18/20 14:30 DCW (Rec: 03/19/20 09:44 DCW [id number]) Functional Tests 2 Minute Walk Test Distance 178' Device Used 4WW Comments 1.43 ft/sec PT-OP-F Manual Assessment Start: 03/18/20 17:40 Freq: Status: Active Protocol: Document 03/18/20 14:30 DCW (Rec: 03/19/20 09:44 DCW [id number]) Manual Assessments Soft Tissue Assessment Soft Tissue Mobility Assessment Hypertonia and tenderness to palpation 2/4: Pain with wincing along bilateral piriformis, bilateral hamstring, bilateral psoas. Joint Mobility Assessment Joint Mobility Assessment Minimal mobility through lumbar spine, majority of flexion movement comes from hips. PT-OP-G Mobility & Gait Start: 03/18/20 17:40 Freq: Status: Active Protocol: Document 03/18/20 14:30 DCW (Rec: 03/19/20 09:44 DCW [id number]) OP Gait Assessment Gait Gait Assistance Required: Standby Assistance Distance (Feet) 178 Able to Maintain Weight Bearing Status Yes During Gait Assistive Devices Assistive Device Gait Belt,4 Wheeled Walker Orthotic/Prosthetic Devices or Brace: No Gait Deviations General Gait Pattern Antalgic,Ataxic,Decreased Stride Length,Decreased Feet Clearance,Flexed Trunk,Wide Based Gait Factors Limiting Gait Function Factors Limiting Gait Function Decreased Activity Tolerance, Decreased Strength,Limited Range of Motion,Pain PT-OP-K Range of Motion Start: 03/18/20 17:40 Freq: Status: Active Protocol: Document 03/18/20 14:30 DCW (Rec: 03/19/20 09:44 DCW [id number]) Lumbar Spine Range of Motion Lumbar Spine Active Degrees Testing Position Standing Flexion 20 Extension 10 ROM Limitations Soft Tissue Tightness,Bony Restriction,Muscle Weakness, Muscle Tone,Pain Comments When attempting to stand upright, pt is still flexed forward 10?, and then despite appearing to have good forward flexion, his lumbar spine only flexes to 20?, and the remainder of the movement comes from his hip. PT-OP-M Strength Start: 03/18/20 17:40 Freq: Status: Active Protocol: Document 03/18/20 14:30 DCW (Rec: 03/19/20 17:21 DCW [id number]) Hip Strength Hip Manual Muscle Testing Right Flexion (L2) 3+ Fair+ Abduction 4 Good Adduction 4 Good Left Flexion (L2) 4+ Good+ Abduction 4+ Good+ Adduction 4+ Good+ Knee Strength Knee Manual Muscle Testing Right Flexion (S2) 4+ Good+ Extension (L3) 4+ Good+ Left Flexion (S2) 4+ Good+ Extension (L3) 4+ Good+ Ankle/Foot Strength Ankle and Foot Manual Muscle Testing Right Dorsiflexion (L4) 3+ Fair+ Plantarflexion (S1) 4 Good Left Dorsiflexion (L4) 4+ Good+ Plantarflexion (S1) 4+ Good+ PT-OP-Q Treatments Start: 03/18/20 17:40 Freq: Status: Active Protocol: Document 05/30/20 16:26 HH (Rec: 05/30/20 16:32 HH [email or web address]) Gym Equipment Shuttle Balance red Reps/Duration with grab bar support bilaterally Comments able to maintain balance without support ~8-15 s Therapeutic Exercises Supine Exercises piriformis stretch Side bilateral Reps/Minutes 15 sec hold x8 Comments no pain noted HS stretch Side bilateral Reps/Minutes 15 sec hold x 5 Comments improved neural tension today. able to reach close to 90degrees bridging Side bilateral Equipment Used red band Reps/Minutes 10 x2 Comments no pain noted Sitting Exercises seated reach Sitting Exercise Name seated reach to ground Reps/Minutes 10 x2 Comments no discomfort noted seated trunk flexion and extension Sitting Exercise Name with knee flexed first then extended knees Side bilateral Reps/Minutes 10 x2 Comments no discomfort noted Standing Exercises standing hip abduction Side bilateral Reps/Minutes 6x2 Comments c/ o fatigue of quads. standing hip extension Side bilateral Reps/Minutes 6 x2 Comments has difficulty engaging full hip extension squat Standing Exercise Name hold on to grab bar. Side bilateral Reps/Minutes 8 x2 Comments cues on full hip extension and knee extension PT-OP-T Assessment and Plan Start: 03/18/20 17:40 Freq: Status: Active Protocol: Document 05/30/20 16:26 HH (Rec: 05/30/20 16:32 HH [email or web address]) Physical Therapy Assessment Goals amb Impairment pt currently amb with 4WW at all times Short Term Goal (STG) pt will be able to amb without 4WW for household distance. STG Duration 6 weeks Skilled Nursing Goal (LTG) pt will be able to amb without 4WW for community distance LTG Duration 12 weeks Four Impairment Significant limitations in lumbar ROM (10?-20?) Short Term Goal (STG) 05/20 pt is able to complete active trunk flexion and extension with mild discomfort. Cont to have difficulty with isolated lumbar flexion. Skilled Nursing Goal (LTG) Lumbar ROM to improve to 0?-50 ? LTG Duration 05/20/20 Three Impairment Pt demonstrates right foot drop during gait Short Term Goal (STG) 05/20 goal met Pt stated he doesnt have R foot drop at this point and strength is at 4/5, R hip 4- to 4/5. Skilled Nursing Goal (LTG) Pt right ankle DF and hip flexion MMT to 4/5, to decrease risk for foot drop and improve gait quality LTG Duration 05/20/20 Two Impairment Pt ambulates 332' (1.43 ft/sec ) using a FWW during a Two Minute Walk Test Short Term Goal (STG) 05/23 Pt completed 332 ft with 4WW in 2 mins but shows increased trunk flexion towards last minute. STG Duration 04/19/20 Product Tester Goal (LTG) Pt to complete a six minute walk test with a distance greater than 600' to indicate improved activity tolerance LTG Duration 05/20/20 One Impairment Pt does not have an appropriate home exercise program Short Term Goal (STG) 05/20 cont in progress pt stated that he is not that compliant with HEP but HEP did help him Pt to be independent and compliant with an appropriate HEP STG Duration 06/19 Assessment Summary Assessment pt came in with walking sticks today. However, he needed gait training for 2 point reciprocal pattern. Also educated him to try interval walking instead of long walk without break to reduce his fall risks. Physical Therapy Plan Frequency and Duration Frequency of Treatment 2x/Week Duration of Treatment 12 weeks Plan of Care Start Date 05/20/20 Plan of Care End Date 09/17/20 Next Visit Focus/Plan Next Note Type Treatment Note Next Visit Plan check HEP Continue per PT POC: gentle lumbar stretching/flexibility, hip/ankle strengthening, gait training
--- NOTE | 2020-06-03 16:11 | PT.OTN ---
Current Diagnoses Foot drop, right foot (06/03/20) Stiffness of unspecified joint, not elsewhere classified (06/03/20) Stiffness of right hip, not elsewhere classified (06/03/20) Stiffness of left hip, not elsewhere classified (06/03/20) Radiculopathy, lumbar region (06/03/20) Muscle weakness (generalized) (06/03/20) Other abnormalities of gait and mobility (06/03/20) Physical Therapy Treatment Note PT-OP-A Visit Information Start: 03/18/20 17:40 Freq: Status: Active Protocol: Document 06/03/20 12:59 HH (Rec: 06/03/20 13:50 HH [id number]) Out-Patient Physical Therapy Visit Information Visit Information Visit Type Treatment Note Visit Note pt came in with walking sticks today Visit Start Time 13:01 Visit Stop Time 13:46 Total Visit Minutes 44 Visit Number 15 Number of ELECTRICAL EXPERIMENTAL MECHANIC Visits 0 PT-OP-B Current Condition Start: 03/18/20 17:40 Freq: Status: Active Protocol: Document 03/18/20 14:30 DCW (Rec: 03/18/20 17:52 DCW [id number]) Current Condition History of Current Condition Onset Date Eight weeks Current Complaints weakness, gait difficulty, LBP , decreased activity tolerance History of Current Condition Pt is a 69 year old male presenting eight weeks s/p L4- 5 microdiscectomy. Pt reports he has been experiencing low back pain for years, but about 5 months ago, the pain began to rapidly accelerate, and he was found to have ruptured his L4-5 disc. Unfortunately, due to Covid-19 shutdowns, he was unable to get in to have anything done with it, until he finally underwent a microdiscectomy eight weeks ago. Pt reports that prior to the surgery, he was barely moving around, and feels like he has lost a lot of strength and mobility. Pt reports that he had been experiencing weakness and radicular pain down his left leg prior to surgery, however that has improved, and he now has significant right-sided leg weakness. Pt reports he did not use any assistive device prior to his disc rupture, but has pretty much been using a 4WW ever since. Pt is beginning to notice shoulder pain because he is bearing so much weight through his upper extremities. Reports he currently gets fatigued just walking across the room. Treatment Goals Patient/Caregiver Goals I really want to regain strength in my right leg. PT-OP-C Subjective Start: 03/18/20 17:40 Freq: Status: Active Protocol: Document 06/03/20 12:59 HH (Rec: 06/03/20 13:50 HH [id number]) OP-PT Subjective Patient Comments Patient Comments I got sore and painful after the last time but it lasted like 2-3 days. But im still walking. Patient Reported Progress Improving PT-OP-E Functional Tests Start: 03/18/20 17:40 Freq: Status: Active Protocol: Document 03/18/20 14:30 DCW (Rec: 03/19/20 09:44 DCW [id number]) Functional Tests 2 Minute Walk Test Distance 178' Device Used 4WW Comments 1.43 ft/sec PT-OP-F Manual Assessment Start: 03/18/20 17:40 Freq: Status: Active Protocol: Document 03/18/20 14:30 DCW (Rec: 03/19/20 09:44 DCW [id number]) Manual Assessments Soft Tissue Assessment Soft Tissue Mobility Assessment Hypertonia and tenderness to palpation 2/4: Pain with wincing along bilateral piriformis, bilateral hamstring, bilateral psoas. Joint Mobility Assessment Joint Mobility Assessment Minimal mobility through lumbar spine, majority of flexion movement comes from hips. PT-OP-G Mobility & Gait Start: 03/18/20 17:40 Freq: Status: Active Protocol: Document 03/18/20 14:30 DCW (Rec: 03/19/20 09:44 DCW [id number]) OP Gait Assessment Gait Gait Assistance Required: Standby Assistance Distance (Feet) 178 Able to Maintain Weight Bearing Status Yes During Gait Assistive Devices Assistive Device Gait Belt,4 Wheeled Walker Orthotic/Prosthetic Devices or Brace: No Gait Deviations General Gait Pattern Antalgic,Ataxic,Decreased Stride Length,Decreased Feet Clearance,Flexed Trunk,Wide Based Gait Factors Limiting Gait Function Factors Limiting Gait Function Decreased Activity Tolerance, Decreased Strength,Limited Range of Motion,Pain PT-OP-K Range of Motion Start: 03/18/20 17:40 Freq: Status: Active Protocol: Document 03/18/20 14:30 DCW (Rec: 03/19/20 09:44 DCW [id number]) Lumbar Spine Range of Motion Lumbar Spine Active Degrees Testing Position Standing Flexion 20 Extension 10 ROM Limitations Soft Tissue Tightness,Bony Restriction,Muscle Weakness, Muscle Tone,Pain Comments When attempting to stand upright, pt is still flexed forward 10?, and then despite appearing to have good forward flexion, his lumbar spine only flexes to 20?, and the remainder of the movement comes from his hip. PT-OP-M Strength Start: 03/18/20 17:40 Freq: Status: Active Protocol: Document 03/18/20 14:30 DCW (Rec: 03/19/20 17:21 DCW [id number]) Hip Strength Hip Manual Muscle Testing Right Flexion (L2) 3+ Fair+ Abduction 4 Good Adduction 4 Good Left Flexion (L2) 4+ Good+ Abduction 4+ Good+ Adduction 4+ Good+ Knee Strength Knee Manual Muscle Testing Right Flexion (S2) 4+ Good+ Extension (L3) 4+ Good+ Left Flexion (S2) 4+ Good+ Extension (L3) 4+ Good+ Ankle/Foot Strength Ankle and Foot Manual Muscle Testing Right Dorsiflexion (L4) 3+ Fair+ Plantarflexion (S1) 4 Good Left Dorsiflexion (L4) 4+ Good+ Plantarflexion (S1) 4+ Good+ PT-OP-Q Treatments Start: 03/18/20 17:40 Freq: Status: Active Protocol: Document 06/03/20 12:59 HH (Rec: 06/03/20 13:50 HH [id number]) Cardio Equipment Treadmill Duration (Minutes) 1 Speed 1.0 Other fatigue after 1.5 mins Gym Equipment Shuttle Balance red Reps/Duration with grab bar support bilaterally Comments able to maintain balance without support ~8-15 s, 45 s for once Therapeutic Exercises Supine Exercises piriformis stretch Side bilateral Reps/Minutes 15 sec hold x8 Comments no pain noted HS stretch Side bilateral Reps/Minutes 15 sec hold x 5 Comments improved neural tension today. able to reach close to 90degrees bridging Side bilateral Equipment Used red band Reps/Minutes 10 x2 Comments no pain noted Prone Exercises hip extension Prone Exercise Name on 2 bolsters Reps/Minutes 5 x 2 Comments unable to reach full range. fatigue after 5 resp Sidelying Exercises hip abduction Side bilateral Reps/Minutes 8 x 2 Comments L shows better performance than R Sitting Exercises seated reach Sitting Exercise Name seated reach to ground Reps/Minutes 10 x2 Comments no discomfort noted seated trunk flexion and extension Sitting Exercise Name with knee flexed first then extended knees Side bilateral Reps/Minutes 10 x2 Comments no discomfort noted Standing Exercises standing hip extension Standing Exercise Name with sliders Side bilateral Reps/Minutes 6 x2 Comments has difficulty engaging full hip extension PT-OP-T Assessment and Plan Start: 03/18/20 17:40 Freq: Status: Active Protocol: Document 06/03/20 12:59 HH (Rec: 06/03/20 13:50 HH [id number]) Physical Therapy Assessment Goals amb Impairment pt currently amb with 4WW at all times Short Term Goal (STG) pt will be able to amb without 4WW for household distance. STG Duration 6 weeks Waste Minimization Technician Goal (LTG) pt will be able to amb without 4WW for community distance LTG Duration 12 weeks Four Impairment Significant limitations in lumbar ROM (10?-20?) Short Term Goal (STG) 05/20 pt is able to complete active trunk flexion and extension with mild discomfort. Cont to have difficulty with isolated lumbar flexion. Residential Goal (LTG) Lumbar ROM to improve to 0?-50 ? LTG Duration 05/20/20 Three Impairment Pt demonstrates right foot drop during gait Short Term Goal (STG) 05/20 goal met Pt stated he doesnt have R foot drop at this point and strength is at 4/5, R hip 4- to 4/5. Residential Goal (LTG) Pt right ankle DF and hip flexion MMT to 4/5, to decrease risk for foot drop and improve gait quality LTG Duration 05/20/20 Two Impairment Pt ambulates 332' (1.43 ft/sec ) using a FWW during a Two Minute Walk Test Short Term Goal (STG) 05/23 Pt completed 332 ft with 4WW in 2 mins but shows increased trunk flexion towards last minute. STG Duration 04/19/20 Residential Goal (LTG) Pt to complete a six minute walk test with a distance greater than 600' to indicate improved activity tolerance LTG Duration 05/20/20 One Impairment Pt does not have an appropriate home exercise program Short Term Goal (STG) 05/20 cont in progress pt stated that he is not that compliant with HEP but HEP did help him Pt to be independent and compliant with an appropriate HEP STG Duration 06/19 Assessment Summary Assessment Pt nakul session well. Still have difficulty achieving full range of hip extension d/t glute weakness. Physical Therapy Plan Frequency and Duration Frequency of Treatment 2x/Week Duration of Treatment 12 weeks Plan of Care Start Date 05/20/20 Plan of Care End Date 09/17/20 Next Visit Focus/Plan Next Note Type Treatment Note Next Visit Plan check HEP Continue per PT POC: gentle lumbar stretching/flexibility, hip/ankle strengthening, gait training
--- NOTE | 2020-06-06 16:14 | PT.OTN ---
Current Diagnoses Foot drop, right foot (06/06/20) Stiffness of unspecified joint, not elsewhere classified (06/06/20) Stiffness of right hip, not elsewhere classified (06/06/20) Stiffness of left hip, not elsewhere classified (06/06/20) Radiculopathy, lumbar region (06/06/20) Muscle weakness (generalized) (06/06/20) Other abnormalities of gait and mobility (06/06/20) Physical Therapy Treatment Note PT-OP-A Visit Information Start: 03/18/20 17:40 Freq: Status: Active Protocol: Document 06/06/20 13:02 HH (Rec: 06/06/20 16:13 [id number]) Out-Patient Physical Therapy Visit Information Visit Information Visit Type Treatment Note Visit Note pt came in with walking sticks today Visit Start Time 13:01 Visit Stop Time 13:46 Total Visit Minutes 44 Visit Number 15 Number of PRODUCTION CONTROLLER Visits 0 PT-OP-B Current Condition Start: 03/18/20 17:40 Freq: Status: Active Protocol: Document 03/18/20 14:30 DCW (Rec: 03/18/20 17:52 DCW [id number]) Current Condition History of Current Condition Onset Date Eight weeks Current Complaints weakness, gait difficulty, LBP , decreased activity tolerance History of Current Condition Pt is a 69 year old male presenting eight weeks s/p L4- 5 microdiscectomy. Pt reports he has been experiencing low back pain for years, but about 5 months ago, the pain began to rapidly accelerate, and he was found to have ruptured his L4-5 disc. Unfortunately, due to Covid-19 shutdowns, he was unable to get in to have anything done with it, until he finally underwent a microdiscectomy eight weeks ago. Pt reports that prior to the surgery, he was barely moving around, and feels like he has lost a lot of strength and mobility. Pt reports that he had been experiencing weakness and radicular pain down his left leg prior to surgery, however that has improved, and he now has significant right-sided leg weakness. Pt reports he did not use any assistive device prior to his disc rupture, but has pretty much been using a 4WW ever since. Pt is beginning to notice shoulder pain because he is bearing so much weight through his upper extremities. Reports he currently gets fatigued just walking across the room. Treatment Goals Patient/Caregiver Goals I really want to regain strength in my right leg. PT-OP-C Subjective Start: 03/18/20 17:40 Freq: Status: Active Protocol: Document 06/06/20 13:02 HH (Rec: 06/06/20 16:13 HH [id number]) OP-PT Subjective Patient Comments Patient Comments I could finally stand for 10 mins to shower for the very first time. My enduranc eand walking ability has been getting a lot better lately Patient Reported Progress Improving PT-OP-E Functional Tests Start: 03/18/20 17:40 Freq: Status: Active Protocol: Document 03/18/20 14:30 DCW (Rec: 03/19/20 09:44 DCW [id number]) Functional Tests 2 Minute Walk Test Distance 178' Device Used 4WW Comments 1.43 ft/sec PT-OP-F Manual Assessment Start: 03/18/20 17:40 Freq: Status: Active Protocol: Document 03/18/20 14:30 DCW (Rec: 03/19/20 09:44 DCW [id number]) Manual Assessments Soft Tissue Assessment Soft Tissue Mobility Assessment Hypertonia and tenderness to palpation 2/4: Pain with wincing along bilateral piriformis, bilateral hamstring, bilateral psoas. Joint Mobility Assessment Joint Mobility Assessment Minimal mobility through lumbar spine, majority of flexion movement comes from hips. PT-OP-G Mobility & Gait Start: 03/18/20 17:40 Freq: Status: Active Protocol: Document 03/18/20 14:30 DCW (Rec: 03/19/20 09:44 DCW [id number]) OP Gait Assessment Gait Gait Assistance Required: Standby Assistance Distance (Feet) 178 Able to Maintain Weight Bearing Status Yes During Gait Assistive Devices Assistive Device Gait Belt,4 Wheeled Walker Orthotic/Prosthetic Devices or Brace: No Gait Deviations General Gait Pattern Antalgic,Ataxic,Decreased Stride Length,Decreased Feet Clearance,Flexed Trunk,Wide Based Gait Factors Limiting Gait Function Factors Limiting Gait Function Decreased Activity Tolerance, Decreased Strength,Limited Range of Motion,Pain PT-OP-K Range of Motion Start: 03/18/20 17:40 Freq: Status: Active Protocol: Document 03/18/20 14:30 DCW (Rec: 03/19/20 09:44 DCW [id number]) Lumbar Spine Range of Motion Lumbar Spine Active Degrees Testing Position Standing Flexion 20 Extension 10 ROM Limitations Soft Tissue Tightness,Bony Restriction,Muscle Weakness, Muscle Tone,Pain Comments When attempting to stand upright, pt is still flexed forward 10?, and then despite appearing to have good forward flexion, his lumbar spine only flexes to 20?, and the remainder of the movement comes from his hip. PT-OP-M Strength Start: 03/18/20 17:40 Freq: Status: Active Protocol: Document 03/18/20 14:30 DCW (Rec: 03/19/20 17:21 DCW [id number]) Hip Strength Hip Manual Muscle Testing Right Flexion (L2) 3+ Fair+ Abduction 4 Good Adduction 4 Good Left Flexion (L2) 4+ Good+ Abduction 4+ Good+ Adduction 4+ Good+ Knee Strength Knee Manual Muscle Testing Right Flexion (S2) 4+ Good+ Extension (L3) 4+ Good+ Left Flexion (S2) 4+ Good+ Extension (L3) 4+ Good+ Ankle/Foot Strength Ankle and Foot Manual Muscle Testing Right Dorsiflexion (L4) 3+ Fair+ Plantarflexion (S1) 4 Good Left Dorsiflexion (L4) 4+ Good+ Plantarflexion (S1) 4+ Good+ PT-OP-Q Treatments Start: 03/18/20 17:40 Freq: Status: Active Protocol: Document 06/06/20 13:02 (Rec: 06/06/20 16:13 HH [id number]) Cardio Equipment Treadmill Duration (Minutes) 4 Speed 1.8 Incline 0 Other noticed step length gets short towards the last 40 secs Gym Equipment Shuttle Balance red Reps/Duration with grab bar support bilaterally Comments able to maintain balance without support ~8-15 s, 50 s for once Therapeutic Exercises Supine Exercises piriformis stretch Side bilateral Reps/Minutes 15 sec hold x8 Comments no pain noted HS stretch Side bilateral Reps/Minutes 15 sec hold x 5 Comments improved neural tension today. able to reach close to 90degrees bridging Side bilateral Equipment Used None Reps/Minutes 10 x2 Comments No pain noted Sitting Exercises seated reach Sitting Exercise Name seated reach to ground Reps/Minutes 10 x2 Comments no discomfort noted seated trunk flexion and extension Sitting Exercise Name with knee flexed first then extended knees Side bilateral Reps/Minutes 10 x2 Comments no discomfort noted Standing Exercises standing hip abduction Standing Exercise Name With slider Side bilateral Reps/Minutes 6x2 Comments c/ o fatigue of quads. standing hip extension Standing Exercise Name with slider Side bilateral Reps/Minutes 6 x2 Comments has difficulty engaging full hip extension Manual Therapy Treatment Manual Traction hip distriction Body Position Supine Reps/Duration 5 s x2 PT-OP-T Assessment and Plan Start: 03/18/20 17:40 Freq: Status: Active Protocol: Document 06/06/20 13:02 (Rec: 06/06/20 16:13 [id number]) Physical Therapy Assessment Goals amb Impairment pt currently amb with 4WW at all times Short Term Goal (STG) pt will be able to amb without 4WW for household distance. STG Duration 6 weeks Senior Living Goal (LTG) pt will be able to amb without 4WW for community distance LTG Duration 12 weeks Four Impairment Significant limitations in lumbar ROM (10?-20?) Short Term Goal (STG) 05/20 pt is able to complete active trunk flexion and extension with mild discomfort. Cont to have difficulty with isolated lumbar flexion. Senior Living Goal (LTG) Lumbar ROM to improve to 0?-50 ? LTG Duration 05/20/20 Three Impairment Pt demonstrates right foot drop during gait Short Term Goal (STG) 05/20 goal met Pt stated he doesnt have R foot drop at this point and strength is at 4/5, R hip 4- to 4/5. Senior Living Goal (LTG) Pt right ankle DF and hip flexion MMT to 4/5, to decrease risk for foot drop and improve gait quality LTG Duration 06/30/20 Two Impairment Pt ambulates 332' (1.43 ft/sec ) using a FWW during a Two Minute Walk Test Short Term Goal (STG) 05/23 Pt completed 332 ft with 4WW in 2 mins but shows increased trunk flexion towards last minute. STG Duration 04/19/20 Director Business Travel Goal (LTG) Pt to complete a six minute walk test with a distance greater than 600' to indicate improved activity tolerance LTG Duration 06/30/20 One Impairment Pt does not have an appropriate home exercise program Short Term Goal (STG) 05/20 cont in progress pt stated that he is not that compliant with HEP but HEP did help him Pt to be independent and compliant with an appropriate HEP STG Duration 06/19 Assessment Summary Assessment Pt shows good improvements especially activity tolerance, balance and hip extension strength. He shows improved upright position during gait as well. Pt was able to nakul TM for 2 mins x 2 at 1.8 Physical Therapy Plan Frequency and Duration Frequency of Treatment 2x/Week Duration of Treatment 12 weeks Plan of Care Start Date 05/20/20 Plan of Care End Date 09/17/20 Next Visit Focus/Plan Next Note Type Treatment Note Next Visit Plan check HEP Continue per PT POC: gentle lumbar stretching/flexibility, hip/ankle strengthening, gait training
--- NOTE | 2020-06-10 13:35 | PT-OP ANOTE ---
Pt no show d/t misunderstood his appt as 3:15pm. Rescheduled him to 8:15am on 06/11.
--- NOTE | 2020-06-11 08:58 | PT.OTN ---
Current Diagnoses Foot drop, right foot (06/11/20) Stiffness of unspecified joint, not elsewhere classified (06/11/20) Stiffness of right hip, not elsewhere classified (06/11/20) Stiffness of left hip, not elsewhere classified (06/11/20) Radiculopathy, lumbar region (06/11/20) Muscle weakness (generalized) (06/11/20) Other abnormalities of gait and mobility (06/11/20) Physical Therapy Treatment Note PT-OP-A Visit Information Start: 03/18/20 17:40 Freq: Status: Active Protocol: Document 06/11/20 08:09 HH (Rec: 06/11/20 08:57 HH [id number]) Out-Patient Physical Therapy Visit Information Visit Information Visit Type Treatment Note Visit Note pt came in with walking sticks today Visit Start Time 08:10 Visit Stop Time 08:55 Total Visit Minutes 45 Visit Number 16 Number of HEAT TRANSFER TECHNICIAN Visits 0 PT-OP-B Current Condition Start: 03/18/20 17:40 Freq: Status: Active Protocol: Document 03/18/20 14:30 DCW (Rec: 03/18/20 17:52 DCW [id number]) Current Condition History of Current Condition Onset Date Eight weeks Current Complaints weakness, gait difficulty, LBP , decreased activity tolerance History of Current Condition Pt is a 69 year old male presenting eight weeks s/p L4- 5 microdiscectomy. Pt reports he has been experiencing low back pain for years, but about 5 months ago, the pain began to rapidly accelerate, and he was found to have ruptured his L4-5 disc. Unfortunately, due to Covid-19 shutdowns, he was unable to get in to have anything done with it, until he finally underwent a microdiscectomy eight weeks ago. Pt reports that prior to the surgery, he was barely moving around, and feels like he has lost a lot of strength and mobility. Pt reports that he had been experiencing weakness and radicular pain down his left leg prior to surgery, however that has improved, and he now has significant right-sided leg weakness. Pt reports he did not use any assistive device prior to his disc rupture, but has pretty much been using a 4WW ever since. Pt is beginning to notice shoulder pain because he is bearing so much weight through his upper extremities. Reports he currently gets fatigued just walking across the room. Treatment Goals Patient/Caregiver Goals I really want to regain strength in my right leg. PT-OP-C Subjective Start: 03/18/20 17:40 Freq: Status: Active Protocol: Document 06/11/20 08:09 HH (Rec: 06/11/20 08:57 HH [id number]) OP-PT Subjective Patient Comments Patient Comments I got really sore and stiff after last tx. I think we did quite a lot last time. Patient Reported Progress Same PT-OP-E Functional Tests Start: 03/18/20 17:40 Freq: Status: Active Protocol: Document 03/18/20 14:30 DCW (Rec: 03/19/20 09:44 DCW [id number]) Functional Tests 2 Minute Walk Test Distance 178' Device Used 4WW Comments 1.43 ft/sec PT-OP-F Manual Assessment Start: 03/18/20 17:40 Freq: Status: Active Protocol: Document 03/18/20 14:30 DCW (Rec: 03/19/20 09:44 DCW [id number]) Manual Assessments Soft Tissue Assessment Soft Tissue Mobility Assessment Hypertonia and tenderness to palpation 2/4: Pain with wincing along bilateral piriformis, bilateral hamstring, bilateral psoas. Joint Mobility Assessment Joint Mobility Assessment Minimal mobility through lumbar spine, majority of flexion movement comes from hips. PT-OP-G Mobility & Gait Start: 03/18/20 17:40 Freq: Status: Active Protocol: Document 03/18/20 14:30 DCW (Rec: 03/19/20 09:44 DCW [id number]) OP Gait Assessment Gait Gait Assistance Required: Standby Assistance Distance (Feet) 178 Able to Maintain Weight Bearing Status Yes During Gait Assistive Devices Assistive Device Gait Belt,4 Wheeled Walker Orthotic/Prosthetic Devices or Brace: No Gait Deviations General Gait Pattern Antalgic,Ataxic,Decreased Stride Length,Decreased Feet Clearance,Flexed Trunk,Wide Based Gait Factors Limiting Gait Function Factors Limiting Gait Function Decreased Activity Tolerance, Decreased Strength,Limited Range of Motion,Pain PT-OP-K Range of Motion Start: 03/18/20 17:40 Freq: Status: Active Protocol: Document 03/18/20 14:30 DCW (Rec: 03/19/20 09:44 DCW [id number]) Lumbar Spine Range of Motion Lumbar Spine Active Degrees Testing Position Standing Flexion 20 Extension 10 ROM Limitations Soft Tissue Tightness,Bony Restriction,Muscle Weakness, Muscle Tone,Pain Comments When attempting to stand upright, pt is still flexed forward 10?, and then despite appearing to have good forward flexion, his lumbar spine only flexes to 20?, and the remainder of the movement comes from his hip. PT-OP-M Strength Start: 03/18/20 17:40 Freq: Status: Active Protocol: Document 03/18/20 14:30 DCW (Rec: 03/19/20 17:21 DCW [id number]) Hip Strength Hip Manual Muscle Testing Right Flexion (L2) 3+ Fair+ Abduction 4 Good Adduction 4 Good Left Flexion (L2) 4+ Good+ Abduction 4+ Good+ Adduction 4+ Good+ Knee Strength Knee Manual Muscle Testing Right Flexion (S2) 4+ Good+ Extension (L3) 4+ Good+ Left Flexion (S2) 4+ Good+ Extension (L3) 4+ Good+ Ankle/Foot Strength Ankle and Foot Manual Muscle Testing Right Dorsiflexion (L4) 3+ Fair+ Plantarflexion (S1) 4 Good Left Dorsiflexion (L4) 4+ Good+ Plantarflexion (S1) 4+ Good+ PT-OP-Q Treatments Start: 03/18/20 17:40 Freq: Status: Active Protocol: Document 06/11/20 08:09 HH (Rec: 06/11/20 08:57 HH [id number]) Cardio Equipment Recumbent Bicycle Duration (Minutes) 5 Resistance 8 Seat Position 9 Other no discomfort. Gym Equipment Shuttle Balance red Reps/Duration with grab bar support bilaterally Comments able to maintain balance without support ~8-15 s, 50 s for once Therapeutic Exercises Supine Exercises piriformis stretch Side bilateral Reps/Minutes 15 sec hold x8 Comments no pain noted HS stretch Side bilateral Reps/Minutes 15 sec hold x 5 Comments increased neural tension today . able to reach close to 90degrees bridging Side bilateral Equipment Used None Reps/Minutes 6 x 2 Comments discomfort noted at low back LTR Side bilateral Equipment Used red therapy ball Reps/Minutes 8 x 2 Comments no discomfort ab curl Side bilateral Equipment Used red therapy ball Reps/Minutes 8 x 2 Comments no discomfort Sitting Exercises seated hip abd Side bilateral Reps/Minutes 15 x 2 Comments no discomfort seated reach Sitting Exercise Name seated reach to ground Reps/Minutes 10 x2 Comments no discomfort noted seated trunk flexion and extension Sitting Exercise Name with knee flexed first then extended knees Side bilateral Reps/Minutes 10 x2 Comments no discomfort noted Manual Therapy Treatment Soft Tissue Mobilization glute and piriformis Mobilization Type Sustained Pressure,Trigger Point Release Intensity/Depth Moderate Body Position Sidelying Comments no discomfort noted. PT-OP-T Assessment and Plan Start: 03/18/20 17:40 Freq: Status: Active Protocol: Document 06/11/20 08:09 (Rec: 06/11/20 08:57 HH [id number]) Physical Therapy Assessment Goals amb Impairment pt currently amb with 4WW at all times Short Term Goal (STG) pt will be able to amb without 4WW for household distance. STG Duration 6 weeks Senior Care Goal (LTG) pt will be able to amb without 4WW for community distance LTG Duration 12 weeks Four Impairment Significant limitations in lumbar ROM (10?-20?) Short Term Goal (STG) 05/20 pt is able to complete active trunk flexion and extension with mild discomfort. Cont to have difficulty with isolated lumbar flexion. Senior Care Goal (LTG) Lumbar ROM to improve to 0?-50 ? LTG Duration 05/20/20 Three Impairment Pt demonstrates right foot drop during gait Short Term Goal (STG) 05/20 goal met Pt stated he doesnt have R foot drop at this point and strength is at 4/5, R hip 4- to 4/5. Denier Control Operator Goal (LTG) Pt right ankle DF and hip flexion MMT to 4/5, to decrease risk for foot drop and improve gait quality LTG Duration 06/30/20 Two Impairment Pt ambulates 332' (1.43 ft/sec ) using a FWW during a Two Minute Walk Test Short Term Goal (STG) 05/23 Pt completed 332 ft with 4WW in 2 mins but shows increased trunk flexion towards last minute. STG Duration 04/19/20 Senior Care Goal (LTG) Pt to complete a six minute walk test with a distance greater than 600' to indicate improved activity tolerance LTG Duration 06/30/20 One Impairment Pt does not have an appropriate home exercise program Short Term Goal (STG) 05/20 cont in progress pt stated that he is not that compliant with HEP but HEP did help him Pt to be independent and compliant with an appropriate HEP STG Duration 06/19 Assessment Summary Assessment Pt came in with increased soreness and stiffness today after last tx possibly d/t increase in activity level. Today session focused on maintaining mobility and isolated hip strengthening. Will cont monitor pt's symptoms. Physical Therapy Plan Frequency and Duration Frequency of Treatment 2x/Week Duration of Treatment 12 weeks Plan of Care Start Date 05/20/20 Plan of Care End Date 09/17/20 Next Visit Focus/Plan Next Note Type Treatment Note Next Visit Plan check HEP Continue per PT POC: gentle lumbar stretching/flexibility, hip/ankle strengthening, gait training
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
--- NOTE | 2020-06-24 13:48 | PT.OTN ---
Current Diagnoses Foot drop, right foot (06/24/20) Stiffness of unspecified joint, not elsewhere classified (06/24/20) Stiffness of right hip, not elsewhere classified (06/24/20) Stiffness of left hip, not elsewhere classified (06/24/20) Radiculopathy, lumbar region (06/24/20) Muscle weakness (generalized) (06/24/20) Other abnormalities of gait and mobility (06/24/20) Physical Therapy Treatment Note PT-OP-A Visit Information Start: 03/18/20 17:40 Freq: Status: Active Protocol: Document 06/24/20 13:01 HH (Rec: 06/24/20 13:48 HH [id number]) Out-Patient Physical Therapy Visit Information Visit Information Visit Type Treatment Note Visit Note pt came in without walking sticks today Visit Start Time 13:03 Visit Stop Time 13:41 Total Visit Minutes 38 Visit Number 19 Number of CELLAR SUPERVISOR Visits 0 PT-OP-B Current Condition Start: 03/18/20 17:40 Freq: Status: Active Protocol: Document 03/18/20 14:30 DCW (Rec: 03/18/20 17:52 DCW [id number]) Current Condition History of Current Condition Onset Date Eight weeks Current Complaints weakness, gait difficulty, LBP , decreased activity tolerance History of Current Condition Pt is a 69 year old male presenting eight weeks s/p L4- 5 microdiscectomy. Pt reports he has been experiencing low back pain for years, but about 5 months ago, the pain began to rapidly accelerate, and he was found to have ruptured his L4-5 disc. Unfortunately, due to Covid-19 shutdowns, he was unable to get in to have anything done with it, until he finally underwent a microdiscectomy eight weeks ago. Pt reports that prior to the surgery, he was barely moving around, and feels like he has lost a lot of strength and mobility. Pt reports that he had been experiencing weakness and radicular pain down his left leg prior to surgery, however that has improved, and he now has significant right-sided leg weakness. Pt reports he did not use any assistive device prior to his disc rupture, but has pretty much been using a 4WW ever since. Pt is beginning to notice shoulder pain because he is bearing so much weight through his upper extremities. Reports he currently gets fatigued just walking across the room. Treatment Goals Patient/Caregiver Goals I really want to regain strength in my right leg. PT-OP-C Subjective Start: 03/18/20 17:40 Freq: Status: Active Protocol: Document 06/24/20 13:01 HH (Rec: 06/24/20 13:48 HH [id number]) OP-PT Subjective Patient Comments Patient Comments I think i pulled my lateral quad during the weekend while i was trying to get up on a step. However, my neurologist reposts there;s no signfiicant abnormalities on my back from MRI. Patient Reported Progress Improving PT-OP-E Functional Tests Start: 03/18/20 17:40 Freq: Status: Active Protocol: Document 03/18/20 14:30 DCW (Rec: 03/19/20 09:44 DCW [id number]) Functional Tests 2 Minute Walk Test Distance 178' Device Used 4WW Comments 1.43 ft/sec PT-OP-F Manual Assessment Start: 03/18/20 17:40 Freq: Status: Active Protocol: Document 03/18/20 14:30 DCW (Rec: 03/19/20 09:44 DCW [id number]) Manual Assessments Soft Tissue Assessment Soft Tissue Mobility Assessment Hypertonia and tenderness to palpation 2/4: Pain with wincing along bilateral piriformis, bilateral hamstring, bilateral psoas. Joint Mobility Assessment Joint Mobility Assessment Minimal mobility through lumbar spine, majority of flexion movement comes from hips. PT-OP-G Mobility & Gait Start: 03/18/20 17:40 Freq: Status: Active Protocol: Document 03/18/20 14:30 DCW (Rec: 03/19/20 09:44 DCW [id number]) OP Gait Assessment Gait Gait Assistance Required: Standby Assistance Distance (Feet) 178 Able to Maintain Weight Bearing Status Yes During Gait Assistive Devices Assistive Device Gait Belt,4 Wheeled Walker Orthotic/Prosthetic Devices or Brace: No Gait Deviations General Gait Pattern Antalgic,Ataxic,Decreased Stride Length,Decreased Feet Clearance,Flexed Trunk,Wide Based Gait Factors Limiting Gait Function Factors Limiting Gait Function Decreased Activity Tolerance, Decreased Strength,Limited Range of Motion,Pain PT-OP-K Range of Motion Start: 03/18/20 17:40 Freq: Status: Active Protocol: Document 07/20/20 14:30 DCW (Rec: 07/21/20 09:44 DCW [id number]) Lumbar Spine Range of Motion Lumbar Spine Active Degrees Testing Position Standing Flexion 20 Extension 10 ROM Limitations Soft Tissue Tightness,Bony Restriction,Muscle Weakness, Muscle Tone,Pain Comments When attempting to stand upright, pt is still flexed forward 10?, and then despite appearing to have good forward flexion, his lumbar spine only flexes to 20?, and the remainder of the movement comes from his hip. PT-OP-M Strength Start: 03/18/20 17:40 Freq: Status: Active Protocol: Document 03/18/20 14:30 DCW (Rec: 03/19/20 17:21 DCW [id number]) Hip Strength Hip Manual Muscle Testing Right Flexion (L2) 3+ Fair+ Abduction 4 Good Adduction 4 Good Left Flexion (L2) 4+ Good+ Abduction 4+ Good+ Adduction 4+ Good+ Knee Strength Knee Manual Muscle Testing Right Flexion (S2) 4+ Good+ Extension (L3) 4+ Good+ Left Flexion (S2) 4+ Good+ Extension (L3) 4+ Good+ Ankle/Foot Strength Ankle and Foot Manual Muscle Testing Right Dorsiflexion (L4) 3+ Fair+ Plantarflexion (S1) 4 Good Left Dorsiflexion (L4) 4+ Good+ Plantarflexion (S1) 4+ Good+ PT-OP-Q Treatments Start: 03/18/20 17:40 Freq: Status: Active Protocol: Document 06/24/20 13:01 HH (Rec: 06/24/20 13:48 HH [id number]) Cardio Equipment Bicycle (Upright) Duration (Minutes) 5 Resistance 5 Therapeutic Exercises Supine Exercises piriformis stretch Side bilateral Reps/Minutes 15 sec hold x8 Comments no pain noted HS stretch Side bilateral Reps/Minutes 15 sec hold x 5 bridging Side bilateral Equipment Used None Reps/Minutes 10 x3 Comments no discomfort Sitting Exercises seated reach Sitting Exercise Name seated reach to ground Reps/Minutes 10 x2 Comments no discomfort noted seated trunk flexion and extension Reps/Minutes 10x2 Comments with knee extended. Standing Exercises squat Standing Exercise Name mini squat Side bilateral Equipment Used grab bar in front Reps/Minutes 8 x3 Comments improved hip and knee extension PT-OP-T Assessment and Plan Start: 03/18/20 17:40 Freq: Status: Active Protocol: Document 06/24/20 13:01 (Rec: 06/24/20 13:48 [id number]) Physical Therapy Assessment Goals amb Impairment pt currently amb with 4WW at all times Short Term Goal (STG) pt will be able to amb without 4WW for household distance. STG Duration 6 weeks Penitentiary Goal (LTG) pt will be able to amb without 4WW for community distance LTG Duration 12 weeks Four Impairment Significant limitations in lumbar ROM (10?-20?) Short Term Goal (STG) 05/20 pt is able to complete active trunk flexion and extension with mild discomfort. Cont to have difficulty with isolated lumbar flexion. Security Operations Manager Goal (LTG) Lumbar ROM to improve to 0?-50 ? LTG Duration 05/20/20 Three Impairment Pt demonstrates right foot drop during gait Short Term Goal (STG) 05/20 goal met Pt stated he doesnt have R foot drop at this point and strength is at 4/5, R hip 4- to 4/5. Security Operations Manager Goal (LTG) Pt right ankle DF and hip flexion MMT to 4/5, to decrease risk for foot drop and improve gait quality LTG Duration 06/30/20 Two Impairment Pt ambulates 332' (1.43 ft/sec ) using a FWW during a Two Minute Walk Test Short Term Goal (STG) 05/23 Pt completed 332 ft with 4WW in 2 mins but shows increased trunk flexion towards last minute. STG Duration 04/19/20 Penitentiary Goal (LTG) Pt to complete a six minute walk test with a distance greater than 600' to indicate improved activity tolerance LTG Duration 06/30/20 One Impairment Pt does not have an appropriate home exercise program Short Term Goal (STG) 05/20 cont in progress pt stated that he is not that compliant with HEP but HEP did help him Pt to be independent and compliant with an appropriate HEP STG Duration 06/19 Assessment Summary Assessment Pt came in today with a new lateral quad strain injury from the weekend. Pt has difficulty walking d/t contraction of injured lateral quad. Rec him to use recumbent bike to facilitate blood flow for reocovery. Will have reassessment next visit. Physical Therapy Plan Next Visit Focus/Plan Next Note Type Treatment Note Next Visit Plan check HEP Continue per PT POC: gentle lumbar stretching/flexibility, hip/ankle strengthening, gait training
--- NOTE | 2020-06-27 14:13 | PT.OTN ---
Current Diagnoses Foot drop, right foot (06/27/20) Stiffness of unspecified joint, not elsewhere classified (06/27/20) Stiffness of right hip, not elsewhere classified (06/27/20) Stiffness of left hip, not elsewhere classified (06/27/20) Radiculopathy, lumbar region (06/27/20) Muscle weakness (generalized) (06/27/20) Other abnormalities of gait and mobility (06/27/20) Physical Therapy Treatment Note PT-OP-A Visit Information Start: 03/18/20 17:40 Freq: Status: Active Protocol: Document 06/27/20 13:04 HH (Rec: 06/27/20 14:10 [id number]) Out-Patient Physical Therapy Visit Information Visit Information Visit Type Progress Note Visit Note pt came in without walking sticks today Visit Start Time 13:02 Visit Stop Time 13:45 Total Visit Minutes 43 Visit Number 20 Number of ENGRAVING SUPERVISOR Visits 0 PT-OP-B Current Condition Start: 03/18/20 17:40 Freq: Status: Active Protocol: Document 03/18/20 14:30 DCW (Rec: 03/18/20 17:52 DCW [id number]) Current Condition History of Current Condition Onset Date Eight weeks Current Complaints weakness, gait difficulty, LBP , decreased activity tolerance History of Current Condition Pt is a 69 year old male presenting eight weeks s/p L4- 5 microdiscectomy. Pt reports he has been experiencing low back pain for years, but about 5 months ago, the pain began to rapidly accelerate, and he was found to have ruptured his L4-5 disc. Unfortunately, due to Covid-19 shutdowns, he was unable to get in to have anything done with it, until he finally underwent a microdiscectomy eight weeks ago. Pt reports that prior to the surgery, he was barely moving around, and feels like he has lost a lot of strength and mobility. Pt reports that he had been experiencing weakness and radicular pain down his left leg prior to surgery, however that has improved, and he now has significant right-sided leg weakness. Pt reports he did not use any assistive device prior to his disc rupture, but has pretty much been using a 4WW ever since. Pt is beginning to notice shoulder pain because he is bearing so much weight through his upper extremities. Reports he currently gets fatigued just walking across the room. Treatment Goals Patient/Caregiver Goals I really want to regain strength in my right leg. PT-OP-C Subjective Start: 03/18/20 17:40 Freq: Status: Active Protocol: Document 06/27/20 13:04 HH (Rec: 06/27/20 14:10 HH [id number]) OP-PT Subjective Patient Comments Patient Comments I am doing okay. My quad is getting better. Patient Reported Progress Improving PT-OP-E Functional Tests Start: 03/18/20 17:40 Freq: Status: Active Protocol: Document 06/27/20 14:11 HH (Rec: 06/27/20 14:13 HH [id number]) Functional Tests 6 Minute Walk Test Distance 816 Device Used hiking sticks Comments pt took a rest break at 1:55 remaining Other Single leg stance Name of Test pt cannot complete 360 turns Name of Test 4 second each direction Comment limping noted PT-OP-F Manual Assessment Start: 03/18/20 17:40 Freq: Status: Active Protocol: Document 03/18/20 14:30 DCW (Rec: 03/19/20 09:44 DCW [id number]) Manual Assessments Soft Tissue Assessment Soft Tissue Mobility Assessment Hypertonia and tenderness to palpation 2/4: Pain with wincing along bilateral piriformis, bilateral hamstring, bilateral psoas. Joint Mobility Assessment Joint Mobility Assessment Minimal mobility through lumbar spine, majority of flexion movement comes from hips. PT-OP-G Mobility & Gait Start: 03/18/20 17:40 Freq: Status: Active Protocol: Document 03/18/20 14:30 DCW (Rec: 03/19/20 09:44 DCW [id number]) OP Gait Assessment Gait Gait Assistance Required: Standby Assistance Distance (Feet) 178 Able to Maintain Weight Bearing Status Yes During Gait Assistive Devices Assistive Device Gait Belt,4 Wheeled Walker Orthotic/Prosthetic Devices or Brace: No Gait Deviations General Gait Pattern Antalgic,Ataxic,Decreased Stride Length,Decreased Feet Clearance,Flexed Trunk,Wide Based Gait Factors Limiting Gait Function Factors Limiting Gait Function Decreased Activity Tolerance, Decreased Strength,Limited Range of Motion,Pain PT-OP-K Range of Motion Start: 03/18/20 17:40 Freq: Status: Active Protocol: Document 03/18/20 14:30 DCW (Rec: 03/19/20 09:44 DCW [id number]) Lumbar Spine Range of Motion Lumbar Spine Active Degrees Testing Position Standing Flexion 20 Extension 10 ROM Limitations Soft Tissue Tightness,Bony Restriction,Muscle Weakness, Muscle Tone,Pain Comments When attempting to stand upright, pt is still flexed forward 10?, and then despite appearing to have good forward flexion, his lumbar spine only flexes to 20?, and the remainder of the movement comes from his hip. PT-OP-M Strength Start: 03/18/20 17:40 Freq: Status: Active Protocol: Document 03/18/20 14:30 DCW (Rec: 03/19/20 17:21 DCW [id number]) Hip Strength Hip Manual Muscle Testing Right Flexion (L2) 3+ Fair+ Abduction 4 Good Adduction 4 Good Left Flexion (L2) 4+ Good+ Abduction 4+ Good+ Adduction 4+ Good+ Knee Strength Knee Manual Muscle Testing Right Flexion (S2) 4+ Good+ Extension (L3) 4+ Good+ Left Flexion (S2) 4+ Good+ Extension (L3) 4+ Good+ Ankle/Foot Strength Ankle and Foot Manual Muscle Testing Right Dorsiflexion (L4) 3+ Fair+ Plantarflexion (S1) 4 Good Left Dorsiflexion (L4) 4+ Good+ Plantarflexion (S1) 4+ Good+ PT-OP-Q Treatments Start: 03/18/20 17:40 Freq: Status: Active Protocol: Document 06/27/20 13:04 (Rec: 06/27/20 14:10 [id number]) Therapeutic Exercises Supine Exercises piriformis stretch Side bilateral Reps/Minutes 15 sec hold x8 Comments no pain noted HS stretch Side bilateral Reps/Minutes 15 sec hold x 5 bridging Side bilateral Equipment Used None Reps/Minutes 10 x3 Comments no discomfort Sitting Exercises seated reach Sitting Exercise Name seated reach to ground Reps/Minutes 10 x2 Comments no discomfort noted Standing Exercises Deadlift Equipment Used Black ball Reps/Minutes 10 x2 squat Standing Exercise Name mini squat Side bilateral Equipment Used grab bar in front Reps/Minutes 8 x3 Comments improved hip and knee extension PT-OP-T Assessment and Plan Start: 03/18/20 17:40 Freq: Status: Active Protocol: Document 06/27/20 13:04 (Rec: 06/27/20 14:10 HH [id number]) Physical Therapy Assessment Goals stair climb Impairment pt needs B support for stair climb Slip Cover Estimator Goal (LTG) pt will show improve single leg strength so he will be able to complete stair climb ( 3-5 steps) with a step to pattern without support. LTG Duration 8 weeks SL stance Impairment Pt is unable to complete SLS Short Term Goal (STG) pt will be able to complete SLS for 5s or more STG Duration 07/30/20 Slip Cover Estimator Goal (LTG) pt will be able to complete SLS for 10s or more in order for him to amb / turn without excessive lateral weight shift . LTG Duration 8 weeks amb Impairment pt currently amb with 4WW at all times Short Term Goal (STG) pt will be able to amb without 4WW for household distance. STG Duration 6 weeks Alf Goal (LTG) 06/27 goal met pt will be able to amb without 4WW for community distance LTG Duration 12 weeks Four Impairment Significant limitations in lumbar ROM (10?-20?) Short Term Goal (STG) 05/20 pt is able to complete active trunk flexion and extension with mild discomfort. Cont to have difficulty with isolated lumbar flexion. Slip Cover Estimator Goal (LTG) 06/27 goal met pt is able to complete floor touch with full lumbar flexion LTG Duration 05/20/20 Three Impairment Pt demonstrates right foot drop during gait Short Term Goal (STG) 05/20 goal met Pt stated he doesnt have R foot drop at this point and strength is at 4/5, R hip 4- to 4/5. Alf Goal (LTG) Pt right ankle DF and hip flexion MMT to 4/5, to decrease risk for foot drop and improve gait quality LTG Duration 06/30/20 Two Impairment Pt ambulates 332' (1.43 ft/sec ) using a FWW during a Two Minute Walk Test Short Term Goal (STG) 06/27/20 Pt is able to complete 816' in 6 MWT with hiking poles. Pt took 1 break a between. Pt will be able to amb with LRAD to complete 6 MWT for 900 ft. STG Duration 07/30/20 Slip Cover Estimator Goal (LTG) Pt to complete a six minute walk test without AD for >600 ft. LTG Duration 8 weeks One Impairment Pt does not have an appropriate home exercise program Short Term Goal (STG) 05/20 cont in progress pt stated that he is not that compliant with HEP but HEP did help him Pt to be independent and compliant with an appropriate HEP STG Duration 06/19 Progress Towards Goals Progress Towards Goals Progressing Toward Goals Assessment Summary Assessment Progress report today. Pt overall progress well and met all rehab goals. He completed 816 ft for 6MWT with hiking sticks. No more foot drop noted. However, pt does not have any SL balance and stability. POC will focus on SL strengthenin, overall balance and trunk stability. Physical Therapy Plan Frequency and Duration Frequency of Treatment 2x/Week Duration of Treatment 12 weeks Plan of Care Start Date 05/20/20 Plan of Care End Date 09/17/20 Next Visit Focus/Plan Next Note Type Treatment Note Next Visit Plan check HEP Continue per PT POC: gentle lumbar stretching/flexibility, hip/ankle strengthening, gait training
--- NOTE | 2020-07-02 13:59 | PT.OTN ---
Current Diagnoses Foot drop, right foot (07/02/20) Stiffness of unspecified joint, not elsewhere classified (07/02/20) Stiffness of right hip, not elsewhere classified (07/02/20) Stiffness of left hip, not elsewhere classified (07/02/20) Radiculopathy, lumbar region (07/02/20) Muscle weakness (generalized) (07/02/20) Other abnormalities of gait and mobility (07/02/20) Physical Therapy Treatment Note PT-OP-A Visit Information Start: 03/18/20 17:40 Freq: Status: Active Protocol: Document 07/02/20 13:00 SAK (Rec: 07/02/20 13:59 SAK [id number]) Out-Patient Physical Therapy Visit Information Visit Information Visit Type Progress Note Visit Note pt came in without walking sticks today Visit Start Time 13:02 Visit Stop Time 13:45 Total Visit Minutes 43 Visit Number 20 Number of MUD TRUCKER Visits 0 PT-OP-B Current Condition Start: 03/18/20 17:40 Freq: Status: Active Protocol: Document 03/18/20 14:30 DCW (Rec: 03/18/20 17:52 DCW [id number]) Current Condition History of Current Condition Onset Date Eight weeks Current Complaints weakness, gait difficulty, LBP , decreased activity tolerance History of Current Condition Pt is a 69 year old male presenting eight weeks s/p L4- 5 microdiscectomy. Pt reports he has been experiencing low back pain for years, but about 5 months ago, the pain began to rapidly accelerate, and he was found to have ruptured his L4-5 disc. Unfortunately, due to Covid-19 shutdowns, he was unable to get in to have anything done with it, until he finally underwent a microdiscectomy eight weeks ago. Pt reports that prior to the surgery, he was barely moving around, and feels like he has lost a lot of strength and mobility. Pt reports that he had been experiencing weakness and radicular pain down his left leg prior to surgery, however that has improved, and he now has significant right-sided leg weakness. Pt reports he did not use any assistive device prior to his disc rupture, but has pretty much been using a 4WW ever since. Pt is beginning to notice shoulder pain because he is bearing so much weight through his upper extremities. Reports he currently gets fatigued just walking across the room. Treatment Goals Patient/Caregiver Goals I really want to regain strength in my right leg. PT-OP-C Subjective Start: 03/18/20 17:40 Freq: Status: Active Protocol: Document 07/02/20 13:00 SAK (Rec: 07/02/20 13:59 SAK [id number]) OP-PT Subjective Patient Comments Patient Comments Patient reports I'm not too good about doing exercises except for using my recumbant exercise bike. PT-OP-E Functional Tests Start: 03/18/20 17:40 Freq: Status: Active Protocol: Document 06/27/20 14:11 HH (Rec: 06/27/20 14:13 HH [id number]) Functional Tests 6 Minute Walk Test Distance 816 Device Used hiking sticks Comments pt took a rest break at 1:55 remaining Other Single leg stance Name of Test pt cannot complete 360 turns Name of Test 4 second each direction Comment limping noted PT-OP-F Manual Assessment Start: 03/18/20 17:40 Freq: Status: Active Protocol: Document 03/18/20 14:30 DCW (Rec: 03/19/20 09:44 DCW [id number]) Manual Assessments Soft Tissue Assessment Soft Tissue Mobility Assessment Hypertonia and tenderness to palpation 2/4: Pain with wincing along bilateral piriformis, bilateral hamstring, bilateral psoas. Joint Mobility Assessment Joint Mobility Assessment Minimal mobility through lumbar spine, majority of flexion movement comes from hips. PT-OP-G Mobility & Gait Start: 03/18/20 17:40 Freq: Status: Active Protocol: Document 03/18/20 14:30 DCW (Rec: 03/19/20 09:44 DCW [id number]) OP Gait Assessment Gait Gait Assistance Required: Standby Assistance Distance (Feet) 178 Able to Maintain Weight Bearing Status Yes During Gait Assistive Devices Assistive Device Gait Belt,4 Wheeled Walker Orthotic/Prosthetic Devices or Brace: No Gait Deviations General Gait Pattern Antalgic,Ataxic,Decreased Stride Length,Decreased Feet Clearance,Flexed Trunk,Wide Based Gait Factors Limiting Gait Function Factors Limiting Gait Function Decreased Activity Tolerance, Decreased Strength,Limited Range of Motion,Pain PT-OP-K Range of Motion Start: 03/18/20 17:40 Freq: Status: Active Protocol: Document 07/20/20 14:30 DCW (Rec: 07/21/20 09:44 DCW [id number]) Lumbar Spine Range of Motion Lumbar Spine Active Degrees Testing Position Standing Flexion 20 Extension 10 ROM Limitations Soft Tissue Tightness,Bony Restriction,Muscle Weakness, Muscle Tone,Pain Comments When attempting to stand upright, pt is still flexed forward 10?, and then despite appearing to have good forward flexion, his lumbar spine only flexes to 20?, and the remainder of the movement comes from his hip. PT-OP-M Strength Start: 03/18/20 17:40 Freq: Status: Active Protocol: Document 03/18/20 14:30 DCW (Rec: 03/19/20 17:21 DCW [id number]) Hip Strength Hip Manual Muscle Testing Right Flexion (L2) 3+ Fair+ Abduction 4 Good Adduction 4 Good Left Flexion (L2) 4+ Good+ Abduction 4+ Good+ Adduction 4+ Good+ Knee Strength Knee Manual Muscle Testing Right Flexion (S2) 4+ Good+ Extension (L3) 4+ Good+ Left Flexion (S2) 4+ Good+ Extension (L3) 4+ Good+ Ankle/Foot Strength Ankle and Foot Manual Muscle Testing Right Dorsiflexion (L4) 3+ Fair+ Plantarflexion (S1) 4 Good Left Dorsiflexion (L4) 4+ Good+ Plantarflexion (S1) 4+ Good+ PT-OP-Q Treatments Start: 03/18/20 17:40 Freq: Status: Active Protocol: Document 07/02/20 13:00 [facility] (Rec: 07/02/20 13:59 [facility] [id number]) Gym Equipment Shuttle Recovery B squat Resistance #50-75# Shuttle Recovery Platform Stable Reps/Time 12 x 2 uni squat Resistance #50 Shuttle Recovery Platform Stable Reps/Time focus on heel push off Shuttle Balance red Details f/b, side bal and weight shifts Reps/Duration with grab bar support bilaterally Therapeutic Exercises Supine Exercises piriformis stretch Side bilateral Reps/Minutes 15 sec hold x8 Comments no pain noted HS stretch Side bilateral Reps/Minutes 15 sec hold x 5 bridging Side bilateral Equipment Used None Reps/Minutes 10 x3 Comments ball squeeze 2nd and third sets Standing Exercises shoulder extension Resistance L2 TB Reps/Minutes 12x squat Standing Exercise Name mini squat Side bilateral Equipment Used grab bar in front, standing on blue foam Reps/Minutes 8 x3 Comments cued improved hip and knee extension Neuro Re-Education Treatment Balance Activities tandem stand Surface level Reps/Duration 2x ea SLS Surface level Reps/Duration 3x ea Comments UE support Standing balance Reps/Duration 1 min Comments EC PT-OP-T Assessment and Plan Start: 03/18/20 17:40 Freq: Status: Active Protocol: Document 07/02/20 13:00 [facility] (Rec: 07/02/20 13:59 [facility] [id number]) Physical Therapy Assessment Goals stair climb Impairment pt needs B support for stair climb Sanitation Engineer Goal (LTG) pt will show improve single leg strength so he will be able to complete stair climb ( 3-5 steps) with a step to pattern without support. LTG Duration 8 weeks SL stance Impairment Pt is unable to complete SLS Short Term Goal (STG) pt will be able to complete SLS for 5s or more STG Duration 07/30/20 Sanitation Engineer Goal (LTG) pt will be able to complete SLS for 10s or more in order for him to amb / turn without excessive lateral weight shift . LTG Duration 8 weeks amb Impairment pt currently amb with 4WW at all times Short Term Goal (STG) pt will be able to amb without 4WW for household distance. STG Duration 6 weeks Sanitation Engineer Goal (LTG) 06/27 goal met pt will be able to amb without 4WW for community distance LTG Duration 12 weeks Four Impairment Significant limitations in lumbar ROM (10?-20?) Short Term Goal (STG) 05/20 pt is able to complete active trunk flexion and extension with mild discomfort. Cont to have difficulty with isolated lumbar flexion. Sanitation Engineer Goal (LTG) 06/27 goal met pt is able to complete floor touch with full lumbar flexion LTG Duration 05/20/20 Three Impairment Pt demonstrates right foot drop during gait Short Term Goal (STG) 05/20 goal met Pt stated he doesnt have R foot drop at this point and strength is at 4/5, R hip 4- to 4/5. Fdc Goal (LTG) Pt right ankle DF and hip flexion MMT to 4/5, to decrease risk for foot drop and improve gait quality LTG Duration 06/30/20 Two Impairment Pt ambulates 332' (1.43 ft/sec ) using a FWW during a Two Minute Walk Test Short Term Goal (STG) 06/27/20 Pt is able to complete 816' in 6 MWT with hiking poles. Pt took 1 break a between. Pt will be able to amb with LRAD to complete 6 MWT for 900 ft. STG Duration 07/30/20 Sanitation Engineer Goal (LTG) Pt to complete a six minute walk test without AD for >600 ft. LTG Duration 8 weeks One Impairment Pt does not have an appropriate home exercise program Short Term Goal (STG) 05/20 cont in progress pt stated that he is not that compliant with HEP but HEP did help him Pt to be independent and compliant with an appropriate HEP STG Duration 06/19 Assessment Summary Assessment Patient has difficulty with SLS, needs cues to decrease UE support and increase challenge. Low compliance to HEP. Physical Therapy Plan Frequency and Duration Frequency of Treatment 2x/Week Duration of Treatment 12 weeks Plan of Care Start Date 05/20/20 Plan of Care End Date 09/17/20 Next Visit Focus/Plan Next Note Type Treatment Note Next Visit Plan Continue to encourage increased HEP compiance, continue PT per POC.
--- NOTE | 2020-07-09 15:54 | PT.OTN ---
Current Diagnoses Foot drop, right foot (07/09/20) Stiffness of unspecified joint, not elsewhere classified (07/09/20) Stiffness of right hip, not elsewhere classified (07/09/20) Stiffness of left hip, not elsewhere classified (07/09/20) Radiculopathy, lumbar region (07/09/20) Muscle weakness (generalized) (07/09/20) Other abnormalities of gait and mobility (07/09/20) Physical Therapy Treatment Note PT-OP-A Visit Information Start: 03/18/20 17:40 Freq: Status: Active Protocol: Document 07/09/20 13:02 HH (Rec: 07/09/20 13:50 [id number]) Out-Patient Physical Therapy Visit Information Visit Information Visit Type Treatment Note Visit Note pt came in with walking sticks today. Pt will go to see his surgeon next Visit Start Time 13:03 Visit Stop Time 13:46 Total Visit Minutes 43 Visit Number 21 Number of TRIAL PARALEGAL Visits 0 PT-OP-B Current Condition Start: 03/18/20 17:40 Freq: Status: Active Protocol: Document 03/18/20 14:30 DCW (Rec: 03/18/20 17:52 DCW [id number]) Current Condition History of Current Condition Onset Date Eight weeks Current Complaints weakness, gait difficulty, LBP , decreased activity tolerance History of Current Condition Pt is a 69 year old male presenting eight weeks s/p L4- 5 microdiscectomy. Pt reports he has been experiencing low back pain for years, but about 5 months ago, the pain began to rapidly accelerate, and he was found to have ruptured his L4-5 disc. Unfortunately, due to Covid-19 shutdowns, he was unable to get in to have anything done with it, until he finally underwent a microdiscectomy eight weeks ago. Pt reports that prior to the surgery, he was barely moving around, and feels like he has lost a lot of strength and mobility. Pt reports that he had been experiencing weakness and radicular pain down his left leg prior to surgery, however that has improved, and he now has significant right-sided leg weakness. Pt reports he did not use any assistive device prior to his disc rupture, but has pretty much been using a 4WW ever since. Pt is beginning to notice shoulder pain because he is bearing so much weight through his upper extremities. Reports he currently gets fatigued just walking across the room. Treatment Goals Patient/Caregiver Goals I really want to regain strength in my right leg. PT-OP-C Subjective Start: 03/18/20 17:40 Freq: Status: Active Protocol: Document 07/09/20 13:02 HH (Rec: 07/09/20 13:50 HH [id number]) OP-PT Subjective Patient Comments Patient Comments I want to gain more balance and stand. PT-OP-E Functional Tests Start: 03/18/20 17:40 Freq: Status: Active Protocol: Document 06/27/20 14:11 HH (Rec: 06/27/20 14:13 HH [id number]) Functional Tests 6 Minute Walk Test Distance 816 Device Used hiking sticks Comments pt took a rest break at 1:55 remaining Other Single leg stance Name of Test pt cannot complete 360 turns Name of Test 4 second each direction Comment limping noted PT-OP-F Manual Assessment Start: 03/18/20 17:40 Freq: Status: Active Protocol: Document 03/18/20 14:30 DCW (Rec: 03/19/20 09:44 DCW [id number]) Manual Assessments Soft Tissue Assessment Soft Tissue Mobility Assessment Hypertonia and tenderness to palpation 2/4: Pain with wincing along bilateral piriformis, bilateral hamstring, bilateral psoas. Joint Mobility Assessment Joint Mobility Assessment Minimal mobility through lumbar spine, majority of flexion movement comes from hips. PT-OP-G Mobility & Gait Start: 03/18/20 17:40 Freq: Status: Active Protocol: Document 03/18/20 14:30 DCW (Rec: 03/19/20 09:44 DCW [id number]) OP Gait Assessment Gait Gait Assistance Required: Standby Assistance Distance (Feet) 178 Able to Maintain Weight Bearing Status Yes During Gait Assistive Devices Assistive Device Gait Belt,4 Wheeled Walker Orthotic/Prosthetic Devices or Brace: No Gait Deviations General Gait Pattern Antalgic,Ataxic,Decreased Stride Length,Decreased Feet Clearance,Flexed Trunk,Wide Based Gait Factors Limiting Gait Function Factors Limiting Gait Function Decreased Activity Tolerance, Decreased Strength,Limited Range of Motion,Pain PT-OP-K Range of Motion Start: 03/18/20 17:40 Freq: Status: Active Protocol: Document 07/20/20 14:30 DCW (Rec: 07/21/20 09:44 DCW [id number]) Lumbar Spine Range of Motion Lumbar Spine Active Degrees Testing Position Standing Flexion 20 Extension 10 ROM Limitations Soft Tissue Tightness,Bony Restriction,Muscle Weakness, Muscle Tone,Pain Comments When attempting to stand upright, pt is still flexed forward 10?, and then despite appearing to have good forward flexion, his lumbar spine only flexes to 20?, and the remainder of the movement comes from his hip. PT-OP-M Strength Start: 03/18/20 17:40 Freq: Status: Active Protocol: Document 03/18/20 14:30 DCW (Rec: 03/19/20 17:21 DCW [id number]) Hip Strength Hip Manual Muscle Testing Right Flexion (L2) 3+ Fair+ Abduction 4 Good Adduction 4 Good Left Flexion (L2) 4+ Good+ Abduction 4+ Good+ Adduction 4+ Good+ Knee Strength Knee Manual Muscle Testing Right Flexion (S2) 4+ Good+ Extension (L3) 4+ Good+ Left Flexion (S2) 4+ Good+ Extension (L3) 4+ Good+ Ankle/Foot Strength Ankle and Foot Manual Muscle Testing Right Dorsiflexion (L4) 3+ Fair+ Plantarflexion (S1) 4 Good Left Dorsiflexion (L4) 4+ Good+ Plantarflexion (S1) 4+ Good+ PT-OP-Q Treatments Start: 03/18/20 17:40 Freq: Status: Active Protocol: Document 07/09/20 13:02 HH (Rec: 07/09/20 13:50 HH [id number]) Therapeutic Exercises Sitting Exercises seated reach Sitting Exercise Name seated reach to ground Reps/Minutes 10 x2 Comments no discomfort noted Standing Exercises toe tap Side bilateral Reps/Minutes 10 x 2 Comments one finger support on railings Deadlift Standing Exercise Name athletic stance Reps/Minutes 10 x2 Comments mid loaiza touch squat Standing Exercise Name mini squat Side bilateral Equipment Used grab bar in front, standing on blue foam Reps/Minutes 8 x3 Comments cued improved hip and knee extension Therapeutic Activity Therapeutic Activity STS Reps/Minutes 10 x 2 Comments min pull from parallel bar. Manual Therapy Treatment Soft Tissue Mobilization R lateral quad Mobilization Type Rolling,Sustained Pressure, Trigger Point Release Intensity/Depth Moderate Body Position Supine Neuro Re-Education Treatment Balance Activities tandem stand Surface level Reps/Duration 2x ea SLS Surface level Reps/Duration 10 x 2 , 10 x 2 Comments opposite heel off (static stance ) then marching in place PT-OP-T Assessment and Plan Start: 03/18/20 17:40 Freq: Status: Active Protocol: Document 07/09/20 13:02 HH (Rec: 07/09/20 13:50 HH [id number]) Physical Therapy Assessment Goals stair climb Impairment pt needs B support for stair climb Snf Goal (LTG) pt will show improve single leg strength so he will be able to complete stair climb ( 3-5 steps) with a step to pattern without support. LTG Duration 8 weeks SL stance Impairment Pt is unable to complete SLS Short Term Goal (STG) pt will be able to complete SLS for 5s or more STG Duration 07/30/20 Snf Goal (LTG) pt will be able to complete SLS for 10s or more in order for him to amb / turn without excessive lateral weight shift . LTG Duration 8 weeks amb Impairment pt currently amb with 4WW at all times Short Term Goal (STG) pt will be able to amb without 4WW for household distance. STG Duration 6 weeks Snf Goal (LTG) 06/27 goal met pt will be able to amb without 4WW for community distance LTG Duration 12 weeks Four Impairment Significant limitations in lumbar ROM (10?-20?) Short Term Goal (STG) 05/20 pt is able to complete active trunk flexion and extension with mild discomfort. Cont to have difficulty with isolated lumbar flexion. Snf Goal (LTG) 06/27 goal met pt is able to complete floor touch with full lumbar flexion LTG Duration 05/20/20 Three Impairment Pt demonstrates right foot drop during gait Short Term Goal (STG) 05/20 goal met Pt stated he doesnt have R foot drop at this point and strength is at 4/5, R hip 4- to 4/5. Route Delivery Driver Goal (LTG) Pt right ankle DF and hip flexion MMT to 4/5, to decrease risk for foot drop and improve gait quality LTG Duration 06/30/20 Two Impairment Pt ambulates 332' (1.43 ft/sec ) using a FWW during a Two Minute Walk Test Short Term Goal (STG) 06/27/20 Pt is able to complete 816' in 6 MWT with hiking poles. Pt took 1 break a between. Pt will be able to amb with LRAD to complete 6 MWT for 900 ft. STG Duration 07/30/20 Snf Goal (LTG) Pt to complete a six minute walk test without AD for >600 ft. LTG Duration 8 weeks One Impairment Pt does not have an appropriate home exercise program Short Term Goal (STG) 05/20 cont in progress pt stated that he is not that compliant with HEP but HEP did help him Pt to be independent and compliant with an appropriate HEP STG Duration 06/19 Assessment Summary Assessment Pt cont to have soreness from his lateral quad injury from few weeks ago. He has increased difficulty practicing SLS on RLE. However, pt's performance of SLS improved with repetition. Physical Therapy Plan Frequency and Duration Frequency of Treatment 2x/Week Duration of Treatment 12 weeks Plan of Care Start Date 05/20/20 Plan of Care End Date 09/17/20 Next Visit Focus/Plan Next Note Type Treatment Note Next Visit Plan Continue to encourage increased HEP compiance, continue PT per POC. SLS strength and balance focused.
--- NOTE | 2020-07-23 13:52 | PT.OTN ---
Current Diagnoses Foot drop, right foot (07/23/20) Stiffness of unspecified joint, not elsewhere classified (07/23/20) Stiffness of right hip, not elsewhere classified (07/23/20) Stiffness of left hip, not elsewhere classified (07/23/20) Radiculopathy, lumbar region (07/23/20) Muscle weakness (generalized) (07/23/20) Other abnormalities of gait and mobility (07/23/20) Physical Therapy Treatment Note PT-OP-A Visit Information Start: 03/18/20 17:40 Freq: Status: Active Protocol: Document 07/23/20 13:03 HH (Rec: 07/23/20 13:52 [id number]) Out-Patient Physical Therapy Visit Information Visit Information Visit Type Treatment Note Visit Note pt came in with walking sticks today. Visit Start Time 13:06 Visit Stop Time 13:45 Total Visit Minutes 39 Visit Number 22 Number of ASSOC[employer]ATE [employer] Visits 0 PT-OP-B Current Condition Start: 03/18/20 17:40 Freq: Status: Active Protocol: Document 03/18/20 14:30 DCW (Rec: 03/18/20 17:52 DCW [id number]) Current Condition History of Current Condition Onset Date Eight weeks Current Complaints weakness, gait difficulty, LBP , decreased activity tolerance History of Current Condition Pt is a 69 year old male presenting eight weeks s/p L4- 5 microdiscectomy. Pt reports he has been experiencing low back pain for years, but about 5 months ago, the pain began to rapidly accelerate, and he was found to have ruptured his L4-5 disc. Unfortunately, due to Covid-19 shutdowns, he was unable to get in to have anything done with it, until he finally underwent a microdiscectomy eight weeks ago. Pt reports that prior to the surgery, he was barely moving around, and feels like he has lost a lot of strength and mobility. Pt reports that he had been experiencing weakness and radicular pain down his left leg prior to surgery, however that has improved, and he now has significant right-sided leg weakness. Pt reports he did not use any assistive device prior to his disc rupture, but has pretty much been using a 4WW ever since. Pt is beginning to notice shoulder pain because he is bearing so much weight through his upper extremities. Reports he currently gets fatigued just walking across the room. Treatment Goals Patient/Caregiver Goals I really want to regain strength in my right leg. PT-OP-C Subjective Start: 03/18/20 17:40 Freq: Status: Active Protocol: Document 07/23/20 13:03 HH (Rec: 07/23/20 13:52 HH [id number]) OP-PT Subjective Patient Comments Patient Comments The surgeon didnt say anything and just asked to continue therapy. The thoughest part is still getting up in the morning cause its stiff. Patient Reported Progress Same PT-OP-E Functional Tests Start: 03/18/20 17:40 Freq: Status: Active Protocol: Document 06/27/20 14:11 HH (Rec: 06/27/20 14:13 HH [id number]) Functional Tests 6 Minute Walk Test Distance 816 Device Used hiking sticks Comments pt took a rest break at 1:55 remaining Other Single leg stance Name of Test pt cannot complete 360 turns Name of Test 4 second each direction Comment limping noted PT-OP-F Manual Assessment Start: 03/18/20 17:40 Freq: Status: Active Protocol: Document 03/18/20 14:30 DCW (Rec: 03/19/20 09:44 DCW [id number]) Manual Assessments Soft Tissue Assessment Soft Tissue Mobility Assessment Hypertonia and tenderness to palpation 2/4: Pain with wincing along bilateral piriformis, bilateral hamstring, bilateral psoas. Joint Mobility Assessment Joint Mobility Assessment Minimal mobility through lumbar spine, majority of flexion movement comes from hips. PT-OP-G Mobility & Gait Start: 03/18/20 17:40 Freq: Status: Active Protocol: Document 03/18/20 14:30 DCW (Rec: 03/19/20 09:44 DCW [id number]) OP Gait Assessment Gait Gait Assistance Required: Standby Assistance Distance (Feet) 178 Able to Maintain Weight Bearing Status Yes During Gait Assistive Devices Assistive Device Gait Belt,4 Wheeled Walker Orthotic/Prosthetic Devices or Brace: No Gait Deviations General Gait Pattern Antalgic,Ataxic,Decreased Stride Length,Decreased Feet Clearance,Flexed Trunk,Wide Based Gait Factors Limiting Gait Function Factors Limiting Gait Function Decreased Activity Tolerance, Decreased Strength,Limited Range of Motion,Pain PT-OP-K Range of Motion Start: 03/18/20 17:40 Freq: Status: Active Protocol: Document 03/18/20 14:30 DCW (Rec: 03/19/20 09:44 DCW [id number]) Lumbar Spine Range of Motion Lumbar Spine Active Degrees Testing Position Standing Flexion 20 Extension 10 ROM Limitations Soft Tissue Tightness,Bony Restriction,Muscle Weakness, Muscle Tone,Pain Comments When attempting to stand upright, pt is still flexed forward 10?, and then despite appearing to have good forward flexion, his lumbar spine only flexes to 20?, and the remainder of the movement comes from his hip. PT-OP-M Strength Start: 03/18/20 17:40 Freq: Status: Active Protocol: Document 03/18/20 14:30 DCW (Rec: 03/19/20 17:21 DCW [id number]) Hip Strength Hip Manual Muscle Testing Right Flexion (L2) 3+ Fair+ Abduction 4 Good Adduction 4 Good Left Flexion (L2) 4+ Good+ Abduction 4+ Good+ Adduction 4+ Good+ Knee Strength Knee Manual Muscle Testing Right Flexion (S2) 4+ Good+ Extension (L3) 4+ Good+ Left Flexion (S2) 4+ Good+ Extension (L3) 4+ Good+ Ankle/Foot Strength Ankle and Foot Manual Muscle Testing Right Dorsiflexion (L4) 3+ Fair+ Plantarflexion (S1) 4 Good Left Dorsiflexion (L4) 4+ Good+ Plantarflexion (S1) 4+ Good+ PT-OP-Q Treatments Start: 03/18/20 17:40 Freq: Status: Active Protocol: Document 07/23/20 13:03 HH (Rec: 07/23/20 13:52 HH [id number]) Gym Equipment Shuttle Recovery uni squat Resistance #50 then 75# Shuttle Recovery Platform Stable Reps/Time focus on heel push off Therapeutic Exercises Supine Exercises piriformis stretch Side bilateral Reps/Minutes 15 sec hold x8 Comments no pain noted HS stretch Side bilateral Reps/Minutes 15 sec hold x 5 bridging Side bilateral Equipment Used None Reps/Minutes 10 x3 Comments ball squeeze 2nd and third sets Sitting Exercises seated reach Sitting Exercise Name seated reach to ground Reps/Minutes 10 x2 Comments no discomfort noted Standing Exercises toe tap Side bilateral Reps/Minutes 20 times x4 Comments no support Deadlift Standing Exercise Name athletic stance Resistance 5 lbs ball Reps/Minutes 10 x2 Comments mid loaiza touch Gait Training Gait Activity ground level Level of Assistance CGA Surface ground level Distance/Duration 180 ft x3 Comments 1st lap 180 ft 1;30 2nd : 1:03 3rd: 1;02 with increaased lateral shift PT-OP-T Assessment and Plan Start: 03/18/20 17:40 Freq: Status: Active Protocol: Document 07/23/20 13:03 HH (Rec: 07/23/20 13:52 HH [id number]) Physical Therapy Assessment Goals stair climb Impairment pt needs B support for stair climb Skilled Nursing Goal (LTG) pt will show improve single leg strength so he will be able to complete stair climb ( 3-5 steps) with a step to pattern without support. LTG Duration 8 weeks SL stance Impairment Pt is unable to complete SLS Short Term Goal (STG) pt will be able to complete SLS for 5s or more STG Duration 07/30/20 Skilled Nursing Goal (LTG) pt will be able to complete SLS for 10s or more in order for him to amb / turn without excessive lateral weight shift . LTG Duration 8 weeks amb Impairment pt currently amb with 4WW at all times Short Term Goal (STG) pt will be able to amb without 4WW for household distance. STG Duration 6 weeks Skilled Nursing Goal (LTG) 06/27 goal met pt will be able to amb without 4WW for community distance LTG Duration 12 weeks Four Impairment Significant limitations in lumbar ROM (10?-20?) Short Term Goal (STG) 05/20 pt is able to complete active trunk flexion and extension with mild discomfort. Cont to have difficulty with isolated lumbar flexion. Binder Caser Goal (LTG) 06/27 goal met pt is able to complete floor touch with full lumbar flexion LTG Duration 05/20/20 Three Impairment Pt demonstrates right foot drop during gait Short Term Goal (STG) 05/20 goal met Pt stated he doesnt have R foot drop at this point and strength is at 4/5, R hip 4- to 4/5. Binder Caser Goal (LTG) Pt right ankle DF and hip flexion MMT to 4/5, to decrease risk for foot drop and improve gait quality LTG Duration 06/30/20 Two Impairment Pt ambulates 332' (1.43 ft/sec ) using a FWW during a Two Minute Walk Test Short Term Goal (STG) 06/27/20 Pt is able to complete 816' in 6 MWT with hiking poles. Pt took 1 break a between. Pt will be able to amb with LRAD to complete 6 MWT for 900 ft. STG Duration 07/30/20 Skilled Nursing Goal (LTG) Pt to complete a six minute walk test without AD for >600 ft. LTG Duration 8 weeks One Impairment Pt does not have an appropriate home exercise program Short Term Goal (STG) 05/20 cont in progress pt stated that he is not that compliant with HEP but HEP did help him Pt to be independent and compliant with an appropriate HEP STG Duration 06/19 Assessment Summary Assessment Pt did well today with improved single leg stance. He is able to complete stair 4 20 times x 4. Gait training without AD for 180 ft x 3 laps , approx 1 min per lap. Will cont gait training and SL stability training focused Physical Therapy Plan Frequency and Duration Frequency of Treatment 2x/Week Duration of Treatment 12 weeks Plan of Care Start Date 05/20/20 Plan of Care End Date 09/17/20 Next Visit Focus/Plan Next Note Type Treatment Note Next Visit Plan Continue to encourage increased HEP compiance, continue PT per POC. SLS strength and balance focused.
--- NOTE | 2020-08-08 09:48 | PT.OTN ---
Current Diagnoses Foot drop, right foot (08/08/20) Stiffness of unspecified joint, not elsewhere classified (08/08/20) Stiffness of right hip, not elsewhere classified (08/08/20) Stiffness of left hip, not elsewhere classified (08/08/20) Radiculopathy, lumbar region (08/08/20) Muscle weakness (generalized) (08/08/20) Other abnormalities of gait and mobility (08/08/20) Physical Therapy Treatment Note PT-OP-A Visit Information Start: 03/18/20 17:40 Freq: Status: Active Protocol: Document 08/08/20 09:02 HH (Rec: 08/08/20 09:48 [id number]) Out-Patient Physical Therapy Visit Information Visit Information Visit Type Treatment Note Visit Note pt came in with walking sticks today. Visit Start Time 09:02 Visit Stop Time 09:45 Total Visit Minutes 43 Visit Number 23 Number of MEDICAL REVIEW COORDINATOR Visits 0 PT-OP-B Current Condition Start: 03/18/20 17:40 Freq: Status: Active Protocol: Document 03/18/20 14:30 DCW (Rec: 03/18/20 17:52 DCW [id number]) Current Condition History of Current Condition Onset Date Eight weeks Current Complaints weakness, gait difficulty, LBP , decreased activity tolerance History of Current Condition Pt is a 69 year old male presenting eight weeks s/p L4- 5 microdiscectomy. Pt reports he has been experiencing low back pain for years, but about 5 months ago, the pain began to rapidly accelerate, and he was found to have ruptured his L4-5 disc. Unfortunately, due to Covid-19 shutdowns, he was unable to get in to have anything done with it, until he finally underwent a microdiscectomy eight weeks ago. Pt reports that prior to the surgery, he was barely moving around, and feels like he has lost a lot of strength and mobility. Pt reports that he had been experiencing weakness and radicular pain down his left leg prior to surgery, however that has improved, and he now has significant right-sided leg weakness. Pt reports he did not use any assistive device prior to his disc rupture, but has pretty much been using a 4WW ever since. Pt is beginning to notice shoulder pain because he is bearing so much weight through his upper extremities. Reports he currently gets fatigued just walking across the room. Treatment Goals Patient/Caregiver Goals I really want to regain strength in my right leg. PT-OP-C Subjective Start: 03/18/20 17:40 Freq: Status: Active Protocol: Document 08/08/20 09:02 HH (Rec: 08/08/20 09:48 HH [id number]) OP-PT Subjective Patient Comments Patient Comments My past few days is a little bit tighter since i went for shooting for the past few days . Patient Reported Progress Improving PT-OP-E Functional Tests Start: 03/18/20 17:40 Freq: Status: Active Protocol: Document 06/27/20 14:11 HH (Rec: 06/27/20 14:13 HH [id number]) Functional Tests 6 Minute Walk Test Distance 816 Device Used hiking sticks Comments pt took a rest break at 1:55 remaining Other Single leg stance Name of Test pt cannot complete 360 turns Name of Test 4 second each direction Comment limping noted PT-OP-F Manual Assessment Start: 03/18/20 17:40 Freq: Status: Active Protocol: Document 03/18/20 14:30 DCW (Rec: 03/19/20 09:44 DCW [id number]) Manual Assessments Soft Tissue Assessment Soft Tissue Mobility Assessment Hypertonia and tenderness to palpation 2/4: Pain with wincing along bilateral piriformis, bilateral hamstring, bilateral psoas. Joint Mobility Assessment Joint Mobility Assessment Minimal mobility through lumbar spine, majority of flexion movement comes from hips. PT-OP-G Mobility & Gait Start: 03/18/20 17:40 Freq: Status: Active Protocol: Document 03/18/20 14:30 DCW (Rec: 03/19/20 09:44 DCW [id number]) OP Gait Assessment Gait Gait Assistance Required: Standby Assistance Distance (Feet) 178 Able to Maintain Weight Bearing Status Yes During Gait Assistive Devices Assistive Device Gait Belt,4 Wheeled Walker Orthotic/Prosthetic Devices or Brace: No Gait Deviations General Gait Pattern Antalgic,Ataxic,Decreased Stride Length,Decreased Feet Clearance,Flexed Trunk,Wide Based Gait Factors Limiting Gait Function Factors Limiting Gait Function Decreased Activity Tolerance, Decreased Strength,Limited Range of Motion,Pain PT-OP-K Range of Motion Start: 03/18/20 17:40 Freq: Status: Active Protocol: Document 03/18/20 14:30 DCW (Rec: 03/19/20 09:44 DCW [id number]) Lumbar Spine Range of Motion Lumbar Spine Active Degrees Testing Position Standing Flexion 20 Extension 10 ROM Limitations Soft Tissue Tightness,Bony Restriction,Muscle Weakness, Muscle Tone,Pain Comments When attempting to stand upright, pt is still flexed forward 10?, and then despite appearing to have good forward flexion, his lumbar spine only flexes to 20?, and the remainder of the movement comes from his hip. PT-OP-M Strength Start: 03/18/20 17:40 Freq: Status: Active Protocol: Document 03/18/20 14:30 DCW (Rec: 03/19/20 17:21 DCW [id number]) Hip Strength Hip Manual Muscle Testing Right Flexion (L2) 3+ Fair+ Abduction 4 Good Adduction 4 Good Left Flexion (L2) 4+ Good+ Abduction 4+ Good+ Adduction 4+ Good+ Knee Strength Knee Manual Muscle Testing Right Flexion (S2) 4+ Good+ Extension (L3) 4+ Good+ Left Flexion (S2) 4+ Good+ Extension (L3) 4+ Good+ Ankle/Foot Strength Ankle and Foot Manual Muscle Testing Right Dorsiflexion (L4) 3+ Fair+ Plantarflexion (S1) 4 Good Left Dorsiflexion (L4) 4+ Good+ Plantarflexion (S1) 4+ Good+ PT-OP-Q Treatments Start: 03/18/20 17:40 Freq: Status: Active Protocol: Document 08/08/20 09:02 HH (Rec: 08/08/20 09:48 HH [id number]) Cardio Equipment Recumbent Bicycle Duration (Minutes) 6 Resistance 5 Gym Equipment Shuttle Recovery uni squat Details 10 x3 Resistance #50 Shuttle Recovery Platform Stable Reps/Time focus on heel push off Therapeutic Exercises Supine Exercises single leg bridge Supine Exercise Name SL bridge Side bilateral Reps/Minutes 6 x2 bridging Side bilateral Equipment Used None Reps/Minutes 10 x2 Sitting Exercises seated reach Sitting Exercise Name seated reach to ground Reps/Minutes 10 x2 Comments tightness at the begining but subsided Standing Exercises toe tap Side bilateral Equipment Used 4 Reps/Minutes 20 times x4 Comments no support, improved SL stance Deadlift Standing Exercise Name athletic stance Resistance 20 lbs KB Reps/Minutes 10 x2 Comments mid loaiza touch PT-OP-T Assessment and Plan Start: 03/18/20 17:40 Freq: Status: Active Protocol: Document 08/08/20 09:02 (Rec: 08/08/20 09:48 [id number]) Physical Therapy Assessment Goals stair climb Impairment pt needs B support for stair climb Snf Goal (LTG) pt will show improve single leg strength so he will be able to complete stair climb ( 3-5 steps) with a step to pattern without support. LTG Duration 8 weeks SL stance Impairment Pt is unable to complete SLS Short Term Goal (STG) pt will be able to complete SLS for 5s or more STG Duration 07/30/20 Assistant Farm Operations Manager Goal (LTG) pt will be able to complete SLS for 10s or more in order for him to amb / turn without excessive lateral weight shift . LTG Duration 8 weeks amb Impairment pt currently amb with 4WW at all times Short Term Goal (STG) pt will be able to amb without 4WW for household distance. STG Duration 6 weeks Assistant Farm Operations Manager Goal (LTG) 06/27 goal met pt will be able to amb without 4WW for community distance LTG Duration 12 weeks Four Impairment Significant limitations in lumbar ROM (10?-20?) Short Term Goal (STG) 05/20 pt is able to complete active trunk flexion and extension with mild discomfort. Cont to have difficulty with isolated lumbar flexion. Assistant Farm Operations Manager Goal (LTG) 06/27 goal met pt is able to complete floor touch with full lumbar flexion LTG Duration 05/20/20 Three Impairment Pt demonstrates right foot drop during gait Short Term Goal (STG) 05/20 goal met Pt stated he doesnt have R foot drop at this point and strength is at 4/5, R hip 4- to 4/5. Assistant Farm Operations Manager Goal (LTG) Pt right ankle DF and hip flexion MMT to 4/5, to decrease risk for foot drop and improve gait quality LTG Duration 06/30/20 Two Impairment Pt ambulates 332' (1.43 ft/sec ) using a FWW during a Two Minute Walk Test Short Term Goal (STG) 06/27/20 Pt is able to complete 816' in 6 MWT with hiking poles. Pt took 1 break a between. Pt will be able to amb with LRAD to complete 6 MWT for 900 ft. STG Duration 07/30/20 Snf Goal (LTG) Pt to complete a six minute walk test without AD for >600 ft. LTG Duration 8 weeks One Impairment Pt does not have an appropriate home exercise program Short Term Goal (STG) 05/20 cont in progress pt stated that he is not that compliant with HEP but HEP did help him Pt to be independent and compliant with an appropriate HEP STG Duration 06/19 Assessment Summary Assessment Pt was last seen on 07/23 but he shows good progress with improved hip strength and SL balance for toe tap ex. Will consolidate walking and HEP next visit Physical Therapy Plan Frequency and Duration Frequency of Treatment 2x/Week Duration of Treatment 12 weeks Plan of Care Start Date 05/20/20 Plan of Care End Date 09/17/20 Next Visit Focus/Plan Next Note Type Treatment Note Next Visit Plan Continue to encourage increased HEP compiance, continue PT per POC. SLS strength and balance focused.
--- NOTE | 2020-08-13 16:18 | PT.OTN ---
Current Diagnoses Foot drop, right foot (08/13/20) Stiffness of unspecified joint, not elsewhere classified (08/13/20) Stiffness of right hip, not elsewhere classified (08/13/20) Stiffness of left hip, not elsewhere classified (08/13/20) Radiculopathy, lumbar region (08/13/20) Muscle weakness (generalized) (08/13/20) Other abnormalities of gait and mobility (08/13/20) Physical Therapy Treatment Note PT-OP-A Visit Information Start: 03/18/20 17:40 Freq: Status: Active Protocol: Document 08/13/20 15:16 HH (Rec: 08/13/20 16:18 HH [id number]) Out-Patient Physical Therapy Visit Information Visit Information Visit Type Treatment Note Visit Note pt came in with walking sticks today. Visit Start Time 15:20 Visit Stop Time 16:02 Total Visit Minutes 42 Visit Number 24 Number of ARTS EDUCATION TEACHER Visits 0 PT-OP-B Current Condition Start: 03/18/20 17:40 Freq: Status: Active Protocol: Document 03/18/20 14:30 DCW (Rec: 03/18/20 17:52 DCW [id number]) Current Condition History of Current Condition Onset Date Eight weeks Current Complaints weakness, gait difficulty, LBP , decreased activity tolerance History of Current Condition Pt is a 69 year old male presenting eight weeks s/p L4- 5 microdiscectomy. Pt reports he has been experiencing low back pain for years, but about 5 months ago, the pain began to rapidly accelerate, and he was found to have ruptured his L4-5 disc. Unfortunately, due to Covid-19 shutdowns, he was unable to get in to have anything done with it, until he finally underwent a microdiscectomy eight weeks ago. Pt reports that prior to the surgery, he was barely moving around, and feels like he has lost a lot of strength and mobility. Pt reports that he had been experiencing weakness and radicular pain down his left leg prior to surgery, however that has improved, and he now has significant right-sided leg weakness. Pt reports he did not use any assistive device prior to his disc rupture, but has pretty much been using a 4WW ever since. Pt is beginning to notice shoulder pain because he is bearing so much weight through his upper extremities. Reports he currently gets fatigued just walking across the room. Treatment Goals Patient/Caregiver Goals I really want to regain strength in my right leg. PT-OP-C Subjective Start: 03/18/20 17:40 Freq: Status: Active Protocol: Document 08/13/20 15:16 HH (Rec: 08/13/20 16:18 HH [id number]) OP-PT Subjective Patient Comments Patient Comments Vicky been hunting for the past few days which involved lots of sitting and standing so my back is sore. PT-OP-E Functional Tests Start: 03/18/20 17:40 Freq: Status: Active Protocol: Document 06/27/20 14:11 HH (Rec: 06/27/20 14:13 HH [id number]) Functional Tests 6 Minute Walk Test Distance 816 Device Used hiking sticks Comments pt took a rest break at 1:55 remaining Other Single leg stance Name of Test pt cannot complete 360 turns Name of Test 4 second each direction Comment limping noted PT-OP-F Manual Assessment Start: 03/18/20 17:40 Freq: Status: Active Protocol: Document 03/18/20 14:30 DCW (Rec: 03/19/20 09:44 DCW [id number]) Manual Assessments Soft Tissue Assessment Soft Tissue Mobility Assessment Hypertonia and tenderness to palpation 2/4: Pain with wincing along bilateral piriformis, bilateral hamstring, bilateral psoas. Joint Mobility Assessment Joint Mobility Assessment Minimal mobility through lumbar spine, majority of flexion movement comes from hips. PT-OP-G Mobility & Gait Start: 03/18/20 17:40 Freq: Status: Active Protocol: Document 03/18/20 14:30 DCW (Rec: 03/19/20 09:44 DCW [id number]) OP Gait Assessment Gait Gait Assistance Required: Standby Assistance Distance (Feet) 178 Able to Maintain Weight Bearing Status Yes During Gait Assistive Devices Assistive Device Gait Belt,4 Wheeled Walker Orthotic/Prosthetic Devices or Brace: No Gait Deviations General Gait Pattern Antalgic,Ataxic,Decreased Stride Length,Decreased Feet Clearance,Flexed Trunk,Wide Based Gait Factors Limiting Gait Function Factors Limiting Gait Function Decreased Activity Tolerance, Decreased Strength,Limited Range of Motion,Pain PT-OP-K Range of Motion Start: 03/18/20 17:40 Freq: Status: Active Protocol: Document 03/18/20 14:30 DCW (Rec: 03/19/20 09:44 DCW [id number]) Lumbar Spine Range of Motion Lumbar Spine Active Degrees Testing Position Standing Flexion 20 Extension 10 ROM Limitations Soft Tissue Tightness,Bony Restriction,Muscle Weakness, Muscle Tone,Pain Comments When attempting to stand upright, pt is still flexed forward 10?, and then despite appearing to have good forward flexion, his lumbar spine only flexes to 20?, and the remainder of the movement comes from his hip. PT-OP-M Strength Start: 03/18/20 17:40 Freq: Status: Active Protocol: Document 03/18/20 14:30 DCW (Rec: 03/19/20 17:21 DCW [id number]) Hip Strength Hip Manual Muscle Testing Right Flexion (L2) 3+ Fair+ Abduction 4 Good Adduction 4 Good Left Flexion (L2) 4+ Good+ Abduction 4+ Good+ Adduction 4+ Good+ Knee Strength Knee Manual Muscle Testing Right Flexion (S2) 4+ Good+ Extension (L3) 4+ Good+ Left Flexion (S2) 4+ Good+ Extension (L3) 4+ Good+ Ankle/Foot Strength Ankle and Foot Manual Muscle Testing Right Dorsiflexion (L4) 3+ Fair+ Plantarflexion (S1) 4 Good Left Dorsiflexion (L4) 4+ Good+ Plantarflexion (S1) 4+ Good+ PT-OP-Q Treatments Start: 03/18/20 17:40 Freq: Status: Active Protocol: Document 08/13/20 15:16 HH (Rec: 08/13/20 16:18 HH [id number]) Therapeutic Exercises Supine Exercises single leg bridge Supine Exercise Name SL bridge Side bilateral Reps/Minutes 6 x2 piriformis stretch Side bilateral Reps/Minutes 15 sec hold x8 Comments no pain noted HS stretch Side bilateral Reps/Minutes 15 sec hold x 5 bridging Side bilateral Equipment Used None Reps/Minutes 10 x2 Prone Exercises hip extension Prone Exercise Name elbows on table Side bilateral Reps/Minutes 8x2 Sitting Exercises seated reach Sitting Exercise Name seated reach to ground Reps/Minutes 10 x2 Comments tightness at the begining but subsided Standing Exercises toe tap Side bilateral Equipment Used 4 Reps/Minutes 20 times x4 Comments no support, improved SL stance Deadlift Standing Exercise Name athletic stance Resistance 20 lbs KB Reps/Minutes 10 x2 Comments mid loaiza touch PT-OP-T Assessment and Plan Start: 03/18/20 17:40 Freq: Status: Active Protocol: Document 08/13/20 15:16 HH (Rec: 08/13/20 16:18 HH [id number]) Physical Therapy Assessment Goals stair climb Impairment pt needs B support for stair climb Booth Operator Goal (LTG) pt will show improve single leg strength so he will be able to complete stair climb ( 3-5 steps) with a step to pattern without support. LTG Duration 8 weeks SL stance Impairment Pt is unable to complete SLS Short Term Goal (STG) pt will be able to complete SLS for 5s or more STG Duration 07/30/20 Intermediate Goal (LTG) pt will be able to complete SLS for 10s or more in order for him to amb / turn without excessive lateral weight shift . LTG Duration 8 weeks amb Impairment pt currently amb with 4WW at all times Short Term Goal (STG) pt will be able to amb without 4WW for household distance. STG Duration 6 weeks Intermediate Goal (LTG) 06/27 goal met pt will be able to amb without 4WW for community distance LTG Duration 12 weeks Four Impairment Significant limitations in lumbar ROM (10?-20?) Short Term Goal (STG) 05/20 pt is able to complete active trunk flexion and extension with mild discomfort. Cont to have difficulty with isolated lumbar flexion. Booth Operator Goal (LTG) 06/27 goal met pt is able to complete floor touch with full lumbar flexion LTG Duration 05/20/20 Three Impairment Pt demonstrates right foot drop during gait Short Term Goal (STG) 05/20 goal met Pt stated he doesnt have R foot drop at this point and strength is at 4/5, R hip 4- to 4/5. Intermediate Goal (LTG) Pt right ankle DF and hip flexion MMT to 4/5, to decrease risk for foot drop and improve gait quality LTG Duration 06/30/20 Two Impairment Pt ambulates 332' (1.43 ft/sec ) using a FWW during a Two Minute Walk Test Short Term Goal (STG) 06/27/20 Pt is able to complete 816' in 6 MWT with hiking poles. Pt took 1 break a between. Pt will be able to amb with LRAD to complete 6 MWT for 900 ft. STG Duration 07/30/20 Intermediate Goal (LTG) Pt to complete a six minute walk test without AD for >600 ft. LTG Duration 8 weeks One Impairment Pt does not have an appropriate home exercise program Short Term Goal (STG) 05/20 cont in progress pt stated that he is not that compliant with HEP but HEP did help him Pt to be independent and compliant with an appropriate HEP STG Duration 06/19 Assessment Summary Assessment Pt has been having increased low back soreness d/t increased hunting activity. Educated pt to be aware of his activity level and take enough rest days. Pt nakul session very well with focus on trunk strengthening and SL balance training. Provided a new set of HEP which focused on strengthening therex Physical Therapy Plan Frequency and Duration Frequency of Treatment 2x/Week Duration of Treatment 12 weeks Plan of Care Start Date 05/20/20 Plan of Care End Date 09/17/20 Next Visit Focus/Plan Next Note Type Treatment Note Next Visit Plan Continue to encourage increased HEP compiance, continue PT per POC. SLS strength and balance focused.
--- NOTE | 2020-08-16 13:00 | PT.OTN ---
Current Diagnoses Foot drop, right foot (08/16/20) Stiffness of unspecified joint, not elsewhere classified (08/16/20) Stiffness of right hip, not elsewhere classified (08/16/20) Stiffness of left hip, not elsewhere classified (08/16/20) Radiculopathy, lumbar region (08/16/20) Muscle weakness (generalized) (08/16/20) Other abnormalities of gait and mobility (08/16/20) Physical Therapy Treatment Note PT-OP-A Visit Information Start: 03/18/20 17:40 Freq: Status: Active Protocol: Document 08/16/20 12:23 SP (Rec: 08/16/20 13:32 SP [id number]) Out-Patient Physical Therapy Visit Information Visit Information Visit Type Treatment Note Visit Start Time 12:22 Visit Stop Time 13:00 Total Visit Minutes 38 Visit Number 25 Number of EVS ATTENDANT Visits 1 PT-OP-B Current Condition Start: 03/18/20 17:40 Freq: Status: Active Protocol: Document 03/18/20 14:30 DCW (Rec: 03/18/20 17:52 DCW [id number]) Current Condition History of Current Condition Onset Date Eight weeks Current Complaints weakness, gait difficulty, LBP , decreased activity tolerance History of Current Condition Pt is a 69 year old male presenting eight weeks s/p L4- 5 microdiscectomy. Pt reports he has been experiencing low back pain for years, but about 5 months ago, the pain began to rapidly accelerate, and he was found to have ruptured his L4-5 disc. Unfortunately, due to Covid-19 shutdowns, he was unable to get in to have anything done with it, until he finally underwent a microdiscectomy eight weeks ago. Pt reports that prior to the surgery, he was barely moving around, and feels like he has lost a lot of strength and mobility. Pt reports that he had been experiencing weakness and radicular pain down his left leg prior to surgery, however that has improved, and he now has significant right-sided leg weakness. Pt reports he did not use any assistive device prior to his disc rupture, but has pretty much been using a 4WW ever since. Pt is beginning to notice shoulder pain because he is bearing so much weight through his upper extremities. Reports he currently gets fatigued just walking across the room. Treatment Goals Patient/Caregiver Goals I really want to regain strength in my right leg. PT-OP-C Subjective Start: 03/18/20 17:40 Freq: Status: Active Protocol: Document 08/16/20 12:23 SP (Rec: 08/16/20 13:32 SP [id number]) OP-PT Subjective Patient Comments Patient Comments I am stiff and sore, have been hunting past couple of days and sititng in the cold. PT-OP-E Functional Tests Start: 03/18/20 17:40 Freq: Status: Active Protocol: Document 06/27/20 14:11 HH (Rec: 06/27/20 14:13 HH [id number]) Functional Tests 6 Minute Walk Test Distance 816 Device Used hiking sticks Comments pt took a rest break at 1:55 remaining Other Single leg stance Name of Test pt cannot complete 360 turns Name of Test 4 second each direction Comment limping noted PT-OP-F Manual Assessment Start: 03/18/20 17:40 Freq: Status: Active Protocol: Document 03/18/20 14:30 DCW (Rec: 03/19/20 09:44 DCW [id number]) Manual Assessments Soft Tissue Assessment Soft Tissue Mobility Assessment Hypertonia and tenderness to palpation 2/4: Pain with wincing along bilateral piriformis, bilateral hamstring, bilateral psoas. Joint Mobility Assessment Joint Mobility Assessment Minimal mobility through lumbar spine, majority of flexion movement comes from hips. PT-OP-G Mobility & Gait Start: 03/18/20 17:40 Freq: Status: Active Protocol: Document 03/18/20 14:30 DCW (Rec: 03/19/20 09:44 DCW [id number]) OP Gait Assessment Gait Gait Assistance Required: Standby Assistance Distance (Feet) 178 Able to Maintain Weight Bearing Status Yes During Gait Assistive Devices Assistive Device Gait Belt,4 Wheeled Walker Orthotic/Prosthetic Devices or Brace: No Gait Deviations General Gait Pattern Antalgic,Ataxic,Decreased Stride Length,Decreased Feet Clearance,Flexed Trunk,Wide Based Gait Factors Limiting Gait Function Factors Limiting Gait Function Decreased Activity Tolerance, Decreased Strength,Limited Range of Motion,Pain PT-OP-K Range of Motion Start: 03/18/20 17:40 Freq: Status: Active Protocol: Document 03/18/20 14:30 DCW (Rec: 03/19/20 09:44 DCW [id number]) Lumbar Spine Range of Motion Lumbar Spine Active Degrees Testing Position Standing Flexion 20 Extension 10 ROM Limitations Soft Tissue Tightness,Bony Restriction,Muscle Weakness, Muscle Tone,Pain Comments When attempting to stand upright, pt is still flexed forward 10?, and then despite appearing to have good forward flexion, his lumbar spine only flexes to 20?, and the remainder of the movement comes from his hip. PT-OP-M Strength Start: 03/18/20 17:40 Freq: Status: Active Protocol: Document 03/18/20 14:30 DCW (Rec: 03/19/20 17:21 DCW [id number]) Hip Strength Hip Manual Muscle Testing Right Flexion (L2) 3+ Fair+ Abduction 4 Good Adduction 4 Good Left Flexion (L2) 4+ Good+ Abduction 4+ Good+ Adduction 4+ Good+ Knee Strength Knee Manual Muscle Testing Right Flexion (S2) 4+ Good+ Extension (L3) 4+ Good+ Left Flexion (S2) 4+ Good+ Extension (L3) 4+ Good+ Ankle/Foot Strength Ankle and Foot Manual Muscle Testing Right Dorsiflexion (L4) 3+ Fair+ Plantarflexion (S1) 4 Good Left Dorsiflexion (L4) 4+ Good+ Plantarflexion (S1) 4+ Good+ PT-OP-Q Treatments Start: 03/18/20 17:40 Freq: Status: Active Protocol: Document 08/16/20 12:23 SP (Rec: 08/16/20 13:32 SP [id number]) Gym Equipment Sport Cord green Exercise Details f/b/side stepping Cord/Resistance green Reps/Duration 5 reps each directions Comments 2 seated rests needed, cued upright posture and glut facilitaiton on RLE. Therapeutic Exercises Supine Exercises piriformis stretch Supine Exercise Name manual Side bilateral Reps/Minutes 60 x2 Comments no pain noted HS stretch Side bilateral Reps/Minutes 60 x2 Comments manual, no pain bridging Side bilateral Equipment Used None Reps/Minutes 10 x2 Prone Exercises hip extension Prone Exercise Name head on hands Side bilateral Reps/Minutes 8x2 Comments cued core facilitation Sitting Exercises seated reach Sitting Exercise Name seated reach to ground ( buttocks against table) Reps/Minutes 30 x3 Comments tightness at the begining but subsided Standing Exercises toe tap Side bilateral Equipment Used 4 Reps/Minutes 20 times x4 Comments Min contact support during RLE stance, improved SL stance Deadlift Standing Exercise Name athletic stance back to wall Resistance 20 lbs KB Reps/Minutes 15, 10 reps Comments mid loaiza touch PT-OP-T Assessment and Plan Start: 03/18/20 17:40 Freq: Status: Active Protocol: Document 08/16/20 12:23 SP (Rec: 08/16/20 13:32 SP [id number]) Physical Therapy Assessment Goals stair climb Impairment pt needs B support for stair climb Criminal Analyst Goal (LTG) pt will show improve single leg strength so he will be able to complete stair climb ( 3-5 steps) with a step to pattern without support. LTG Duration 8 weeks SL stance Impairment Pt is unable to complete SLS Short Term Goal (STG) pt will be able to complete SLS for 5s or more STG Duration 07/30/20 Nursing Home Goal (LTG) pt will be able to complete SLS for 10s or more in order for him to amb / turn without excessive lateral weight shift . LTG Duration 8 weeks amb Impairment pt currently amb with 4WW at all times Short Term Goal (STG) pt will be able to amb without 4WW for household distance. STG Duration 6 weeks Criminal Analyst Goal (LTG) 06/27 goal met pt will be able to amb without 4WW for community distance LTG Duration 12 weeks Four Impairment Significant limitations in lumbar ROM (10?-20?) Short Term Goal (STG) 05/20 pt is able to complete active trunk flexion and extension with mild discomfort. Cont to have difficulty with isolated lumbar flexion. Nursing Home Goal (LTG) 06/27 goal met pt is able to complete floor touch with full lumbar flexion LTG Duration 05/20/20 Three Impairment Pt demonstrates right foot drop during gait Short Term Goal (STG) 05/20 goal met Pt stated he doesnt have R foot drop at this point and strength is at 4/5, R hip 4- to 4/5. Nursing Home Goal (LTG) Pt right ankle DF and hip flexion MMT to 4/5, to decrease risk for foot drop and improve gait quality LTG Duration 06/30/20 Two Impairment Pt ambulates 332' (1.43 ft/sec ) using a FWW during a Two Minute Walk Test Short Term Goal (STG) 06/27/20 Pt is able to complete 816' in 6 MWT with hiking poles. Pt took 1 break a between. Pt will be able to amb with LRAD to complete 6 MWT for 900 ft. STG Duration 07/30/20 Nursing Home Goal (LTG) Pt to complete a six minute walk test without AD for >600 ft. LTG Duration 8 weeks One Impairment Pt does not have an appropriate home exercise program Short Term Goal (STG) 05/20 cont in progress pt stated that he is not that compliant with HEP but HEP did help him Pt to be independent and compliant with an appropriate HEP STG Duration 06/19 Assessment Summary Assessment Pt responded well to manual stretching beginning of tx then glut facilitation focus of strengthening review. Initiated sport cord dynamic glut facilitation with good response and tiring in each directions requiring needed sit rest due to decreased activity tolerance and challenged LS in neutral with upright posture. Pt demonstrated increased level pelvis during gait end of tx leaving. Physical Therapy Plan Frequency and Duration Frequency of Treatment 2x/Week Duration of Treatment 12 weeks Plan of Care Start Date 05/20/20 Plan of Care End Date 09/17/20 Therapeutic Interventions Therapeutic Interventions Balance Training,Gait Training ,Home Exercise Program,Joint Mobilizations,Manual Therapy, Neuromuscular Re-education, Patient/Caregiver Education, Self-Care/Home Management,Soft Tissue Mobilization, Therapeutic Activities, Therapeutic Exercises Modalities Cold Pack/Ice Massage,Electric Stimulation,Hot Packs, Ultrasound Next Visit Focus/Plan Next Note Type Treatment Note Next Visit Plan Assess response to initiated sport cord dynamic strengthening with single stance glut facilitation last tx. Continue to encourage increased HEP compiance, continue PT per POC. SLS strength and balance focused.
--- NOTE | 2020-08-20 09:51 | PT.OTN ---
Current Diagnoses Foot drop, right foot (08/20/20) Stiffness of unspecified joint, not elsewhere classified (08/20/20) Stiffness of right hip, not elsewhere classified (08/20/20) Stiffness of left hip, not elsewhere classified (08/20/20) Radiculopathy, lumbar region (08/20/20) Muscle weakness (generalized) (08/20/20) Other abnormalities of gait and mobility (08/20/20) Physical Therapy Treatment Note PT-OP-A Visit Information Start: 03/18/20 17:40 Freq: Status: Active Protocol: Document 08/20/20 09:03 HH (Rec: 08/20/20 09:51 HH [id number]) Out-Patient Physical Therapy Visit Information Visit Information Visit Type Treatment Note Visit Note pt came in without hiking sticks Visit Start Time 09:04 Visit Stop Time 09:45 Total Visit Minutes 41 Visit Number 26 Number of ASSOCIATE PROFESSOR OF CHEMISTRY Visits 0 PT-OP-B Current Condition Start: 03/18/20 17:40 Freq: Status: Active Protocol: Document 03/18/20 14:30 DCW (Rec: 03/18/20 17:52 DCW [id number]) Current Condition History of Current Condition Onset Date Eight weeks Current Complaints weakness, gait difficulty, LBP , decreased activity tolerance History of Current Condition Pt is a 69 year old male presenting eight weeks s/p L4- 5 microdiscectomy. Pt reports he has been experiencing low back pain for years, but about 5 months ago, the pain began to rapidly accelerate, and he was found to have ruptured his L4-5 disc. Unfortunately, due to Covid-19 shutdowns, he was unable to get in to have anything done with it, until he finally underwent a microdiscectomy eight weeks ago. Pt reports that prior to the surgery, he was barely moving around, and feels like he has lost a lot of strength and mobility. Pt reports that he had been experiencing weakness and radicular pain down his left leg prior to surgery, however that has improved, and he now has significant right-sided leg weakness. Pt reports he did not use any assistive device prior to his disc rupture, but has pretty much been using a 4WW ever since. Pt is beginning to notice shoulder pain because he is bearing so much weight through his upper extremities. Reports he currently gets fatigued just walking across the room. Treatment Goals Patient/Caregiver Goals I really want to regain strength in my right leg. PT-OP-C Subjective Start: 03/18/20 17:40 Freq: Status: Active Protocol: Document 08/20/20 09:03 HH (Rec: 08/20/20 09:51 HH [id number]) OP-PT Subjective Patient Comments Patient Comments My back is doing okay. I went for hungting again. Patient Reported Progress Same PT-OP-E Functional Tests Start: 03/18/20 17:40 Freq: Status: Active Protocol: Document 06/27/20 14:11 HH (Rec: 06/27/20 14:13 HH [id number]) Functional Tests 6 Minute Walk Test Distance 816 Device Used hiking sticks Comments pt took a rest break at 1:55 remaining Other Single leg stance Name of Test pt cannot complete 360 turns Name of Test 4 second each direction Comment limping noted PT-OP-F Manual Assessment Start: 03/18/20 17:40 Freq: Status: Active Protocol: Document 03/18/20 14:30 DCW (Rec: 03/19/20 09:44 DCW [id number]) Manual Assessments Soft Tissue Assessment Soft Tissue Mobility Assessment Hypertonia and tenderness to palpation 2/4: Pain with wincing along bilateral piriformis, bilateral hamstring, bilateral psoas. Joint Mobility Assessment Joint Mobility Assessment Minimal mobility through lumbar spine, majority of flexion movement comes from hips. PT-OP-G Mobility & Gait Start: 03/18/20 17:40 Freq: Status: Active Protocol: Document 03/18/20 14:30 DCW (Rec: 03/19/20 09:44 DCW [id number]) OP Gait Assessment Gait Gait Assistance Required: Standby Assistance Distance (Feet) 178 Able to Maintain Weight Bearing Status Yes During Gait Assistive Devices Assistive Device Gait Belt,4 Wheeled Walker Orthotic/Prosthetic Devices or Brace: No Gait Deviations General Gait Pattern Antalgic,Ataxic,Decreased Stride Length,Decreased Feet Clearance,Flexed Trunk,Wide Based Gait Factors Limiting Gait Function Factors Limiting Gait Function Decreased Activity Tolerance, Decreased Strength,Limited Range of Motion,Pain PT-OP-K Range of Motion Start: 03/18/20 17:40 Freq: Status: Active Protocol: Document 03/18/20 14:30 DCW (Rec: 03/19/20 09:44 DCW [id number]) Lumbar Spine Range of Motion Lumbar Spine Active Degrees Testing Position Standing Flexion 20 Extension 10 ROM Limitations Soft Tissue Tightness,Bony Restriction,Muscle Weakness, Muscle Tone,Pain Comments When attempting to stand upright, pt is still flexed forward 10?, and then despite appearing to have good forward flexion, his lumbar spine only flexes to 20?, and the remainder of the movement comes from his hip. PT-OP-M Strength Start: 03/18/20 17:40 Freq: Status: Active Protocol: Document 03/18/20 14:30 DCW (Rec: 03/19/20 17:21 DCW [id number]) Hip Strength Hip Manual Muscle Testing Right Flexion (L2) 3+ Fair+ Abduction 4 Good Adduction 4 Good Left Flexion (L2) 4+ Good+ Abduction 4+ Good+ Adduction 4+ Good+ Knee Strength Knee Manual Muscle Testing Right Flexion (S2) 4+ Good+ Extension (L3) 4+ Good+ Left Flexion (S2) 4+ Good+ Extension (L3) 4+ Good+ Ankle/Foot Strength Ankle and Foot Manual Muscle Testing Right Dorsiflexion (L4) 3+ Fair+ Plantarflexion (S1) 4 Good Left Dorsiflexion (L4) 4+ Good+ Plantarflexion (S1) 4+ Good+ PT-OP-Q Treatments Start: 03/18/20 17:40 Freq: Status: Active Protocol: Document 08/20/20 09:03 HH (Rec: 08/20/20 09:51 HH [id number]) Cardio Equipment Recumbent Bicycle Duration (Minutes) 6 Resistance 5 Seat Position 8 Therapeutic Exercises Supine Exercises single leg bridge Supine Exercise Name SL bridge Side bilateral Reps/Minutes 6 x2 piriformis stretch Supine Exercise Name manual Side bilateral Reps/Minutes 60 x2 Comments no pain noted HS stretch Side bilateral Reps/Minutes 60 x2 Comments manual, no pain Sitting Exercises seated reach Sitting Exercise Name seated reach to ground ( buttocks against table) Reps/Minutes 10x1 Comments tightness at the begining but subsided Standing Exercises SLS Side bilateral Reps/Minutes 2-3 sec each leg Comments 4 mins step up Equipment Used 4 Reps/Minutes 8x2 Comments with UE support on rails. toe tap Side bilateral Equipment Used 4 Reps/Minutes 20 times x4 Comments improved SL stance PT-OP-T Assessment and Plan Start: 03/18/20 17:40 Freq: Status: Active Protocol: Document 08/20/20 09:03 (Rec: 08/20/20 09:51 [id number]) Physical Therapy Assessment Goals stair climb Impairment pt needs B support for stair climb 4Th Grade Teacher Goal (LTG) pt will show improve single leg strength so he will be able to complete stair climb ( 3-5 steps) with a step to pattern without support. LTG Duration 8 weeks SL stance Impairment Pt is unable to complete SLS Short Term Goal (STG) pt will be able to complete SLS for 5s or more STG Duration 07/30/20 Snf Goal (LTG) pt will be able to complete SLS for 10s or more in order for him to amb / turn without excessive lateral weight shift . LTG Duration 8 weeks amb Impairment pt currently amb with 4WW at all times Short Term Goal (STG) pt will be able to amb without 4WW for household distance. STG Duration 6 weeks Snf Goal (LTG) 06/27 goal met pt will be able to amb without 4WW for community distance LTG Duration 12 weeks Four Impairment Significant limitations in lumbar ROM (10?-20?) Short Term Goal (STG) 05/20 pt is able to complete active trunk flexion and extension with mild discomfort. Cont to have difficulty with isolated lumbar flexion. Snf Goal (LTG) 06/27 goal met pt is able to complete floor touch with full lumbar flexion LTG Duration 05/20/20 Three Impairment Pt demonstrates right foot drop during gait Short Term Goal (STG) 05/20 goal met Pt stated he doesnt have R foot drop at this point and strength is at 4/5, R hip 4- to 4/5. Snf Goal (LTG) Pt right ankle DF and hip flexion MMT to 4/5, to decrease risk for foot drop and improve gait quality LTG Duration 06/30/20 Two Impairment Pt ambulates 332' (1.43 ft/sec ) using a FWW during a Two Minute Walk Test Short Term Goal (STG) 06/27/20 Pt is able to complete 816' in 6 MWT with hiking poles. Pt took 1 break a between. Pt will be able to amb with LRAD to complete 6 MWT for 900 ft. STG Duration 07/30/20 Snf Goal (LTG) Pt to complete a six minute walk test without AD for >600 ft. LTG Duration 8 weeks One Impairment Pt does not have an appropriate home exercise program Short Term Goal (STG) 05/20 cont in progress pt stated that he is not that compliant with HEP but HEP did help him Pt to be independent and compliant with an appropriate HEP STG Duration 06/19 Assessment Summary Assessment Pt nakul session well today. He was able to reach SLS ~2-3 secs on each leg for the first time. Added SL step up today and also noticed he can amb with more upright posture. Physical Therapy Plan Next Visit Focus/Plan Next Note Type Treatment Note Next Visit Plan Assess response to initiated sport cord dynamic strengthening with single stance glut facilitation last tx. Continue to encourage increased HEP compiance, continue PT per POC. SLS strength and balance focused.
--- NOTE | 2020-08-27 09:54 | PT.OTN ---
Current Diagnoses Foot drop, right foot (08/27/20) Stiffness of unspecified joint, not elsewhere classified (08/27/20) Stiffness of right hip, not elsewhere classified (08/27/20) Stiffness of left hip, not elsewhere classified (08/27/20) Radiculopathy, lumbar region (08/27/20) Muscle weakness (generalized) (08/27/20) Other abnormalities of gait and mobility (08/27/20) Physical Therapy Treatment Note PT-OP-A Visit Information Start: 03/18/20 17:40 Freq: Status: Active Protocol: Document 08/27/20 08:55 SP (Rec: 08/27/20 11:12 SP [id number]) Out-Patient Physical Therapy Visit Information Visit Information Visit Type Treatment Note Visit Start Time 08:55 Visit Stop Time 09:54 Total Visit Minutes 59 Visit Number 27 Number of EXERCISE TEACHER Visits 1 PT-OP-B Current Condition Start: 03/18/20 17:40 Freq: Status: Active Protocol: Document 03/18/20 14:30 DCW (Rec: 03/18/20 17:52 DCW [id number]) Current Condition History of Current Condition Onset Date Eight weeks Current Complaints weakness, gait difficulty, LBP , decreased activity tolerance History of Current Condition Pt is a 69 year old male presenting eight weeks s/p L4- 5 microdiscectomy. Pt reports he has been experiencing low back pain for years, but about 5 months ago, the pain began to rapidly accelerate, and he was found to have ruptured his L4-5 disc. Unfortunately, due to Covid-19 shutdowns, he was unable to get in to have anything done with it, until he finally underwent a microdiscectomy eight weeks ago. Pt reports that prior to the surgery, he was barely moving around, and feels like he has lost a lot of strength and mobility. Pt reports that he had been experiencing weakness and radicular pain down his left leg prior to surgery, however that has improved, and he now has significant right-sided leg weakness. Pt reports he did not use any assistive device prior to his disc rupture, but has pretty much been using a 4WW ever since. Pt is beginning to notice shoulder pain because he is bearing so much weight through his upper extremities. Reports he currently gets fatigued just walking across the room. Treatment Goals Patient/Caregiver Goals I really want to regain strength in my right leg. PT-OP-C Subjective Start: 03/18/20 17:40 Freq: Status: Active Protocol: Document 08/27/20 08:55 SP (Rec: 08/27/20 11:12 SP [id number]) OP-PT Subjective Patient Comments Patient Comments Pt arrived using B trekk poles with flexed trunk poture. I am really stiff today. Patient Reported Progress Same PT-OP-E Functional Tests Start: 03/18/20 17:40 Freq: Status: Active Protocol: Document 06/27/20 14:11 HH (Rec: 06/27/20 14:13 HH [id number]) Functional Tests 6 Minute Walk Test Distance 816 Device Used hiking sticks Comments pt took a rest break at 1:55 remaining Other Single leg stance Name of Test pt cannot complete 360 turns Name of Test 4 second each direction Comment limping noted PT-OP-F Manual Assessment Start: 03/18/20 17:40 Freq: Status: Active Protocol: Document 03/18/20 14:30 DCW (Rec: 03/19/20 09:44 DCW [id number]) Manual Assessments Soft Tissue Assessment Soft Tissue Mobility Assessment Hypertonia and tenderness to palpation 2/4: Pain with wincing along bilateral piriformis, bilateral hamstring, bilateral psoas. Joint Mobility Assessment Joint Mobility Assessment Minimal mobility through lumbar spine, majority of flexion movement comes from hips. PT-OP-G Mobility & Gait Start: 03/18/20 17:40 Freq: Status: Active Protocol: Document 03/18/20 14:30 DCW (Rec: 03/19/20 09:44 DCW [id number]) OP Gait Assessment Gait Gait Assistance Required: Standby Assistance Distance (Feet) 178 Able to Maintain Weight Bearing Status Yes During Gait Assistive Devices Assistive Device Gait Belt,4 Wheeled Walker Orthotic/Prosthetic Devices or Brace: No Gait Deviations General Gait Pattern Antalgic,Ataxic,Decreased Stride Length,Decreased Feet Clearance,Flexed Trunk,Wide Based Gait Factors Limiting Gait Function Factors Limiting Gait Function Decreased Activity Tolerance, Decreased Strength,Limited Range of Motion,Pain PT-OP-K Range of Motion Start: 03/18/20 17:40 Freq: Status: Active Protocol: Document 03/18/20 14:30 DCW (Rec: 03/19/20 09:44 DCW [id number]) Lumbar Spine Range of Motion Lumbar Spine Active Degrees Testing Position Standing Flexion 20 Extension 10 ROM Limitations Soft Tissue Tightness,Bony Restriction,Muscle Weakness, Muscle Tone,Pain Comments When attempting to stand upright, pt is still flexed forward 10?, and then despite appearing to have good forward flexion, his lumbar spine only flexes to 20?, and the remainder of the movement comes from his hip. PT-OP-M Strength Start: 03/18/20 17:40 Freq: Status: Active Protocol: Document 03/18/20 14:30 DCW (Rec: 03/19/20 17:21 DCW [id number]) Hip Strength Hip Manual Muscle Testing Right Flexion (L2) 3+ Fair+ Abduction 4 Good Adduction 4 Good Left Flexion (L2) 4+ Good+ Abduction 4+ Good+ Adduction 4+ Good+ Knee Strength Knee Manual Muscle Testing Right Flexion (S2) 4+ Good+ Extension (L3) 4+ Good+ Left Flexion (S2) 4+ Good+ Extension (L3) 4+ Good+ Ankle/Foot Strength Ankle and Foot Manual Muscle Testing Right Dorsiflexion (L4) 3+ Fair+ Plantarflexion (S1) 4 Good Left Dorsiflexion (L4) 4+ Good+ Plantarflexion (S1) 4+ Good+ PT-OP-Q Treatments Start: 03/18/20 17:40 Freq: Status: Active Protocol: Document 08/27/20 08:55 SP (Rec: 08/27/20 11:12 SP [id number]) Cardio Equipment Recumbent Bicycle Duration (Minutes) 6 Resistance 5 Seat Position 8 Therapeutic Exercises Supine Exercises single leg bridge Supine Exercise Name SL bridge (Faisal, LLE single) 2ndary to R quad tear still not healed compl. Side bilateral Reps/Minutes 6 x2 piriformis stretch Supine Exercise Name manual Side bilateral Reps/Minutes 60 x2 Comments no pain noted HS stretch Side bilateral Reps/Minutes 60 x2 Comments manual, no pain Prone Exercises hip flexor stretch Side bilateral Reps/Minutes 30 hip extension Prone Exercise Name head on hands Side bilateral Reps/Minutes 8x2 Comments cued core facilitation Sitting Exercises seated reach Sitting Exercise Name seated reach to ground ( buttocks against table) Reps/Minutes 10x1 Comments tightness at the begining but subsided Standing Exercises step up Standing Exercise Name unable R today Side left Equipment Used 6 Reps/Minutes 2x6 reps with seated rest betweend 2nd LBP Comments with BUE support on rails. toe tap Side bilateral Equipment Used 6, B HR Reps/Minutes 20 times x4 Comments improved SL stance Manual Therapy Treatment Soft Tissue Mobilization glute and piriformis Mobilization Type Sustained Pressure,Trigger Point Release Intensity/Depth Moderate Body Position Prone Comments no discomfort noted. lumbar paraspinals Mobilization Type Sustained Pressure,Trigger Point Release Intensity/Depth Moderate Body Position Prone Comments no discomfort noted. PT-OP-R Modalities Start: 03/18/20 17:40 Freq: Status: Active Protocol: Document 08/27/20 08:55 SP (Rec: 08/27/20 11:12 SP [id number]) Hot Pack/Cold Pack Treatment MHP LS Location B LS Patient Position Prone Treatment Duration (minutes) 10 Patient Tolerance Good Comments decrease LBP PT-OP-T Assessment and Plan Start: 03/18/20 17:40 Freq: Status: Active Protocol: Document 08/27/20 08:55 SP (Rec: 08/27/20 11:12 SP [id number]) Physical Therapy Assessment Goals stair climb Impairment pt needs B support for stair climb Franchise Broker Goal (LTG) pt will show improve single leg strength so he will be able to complete stair climb ( 3-5 steps) with a step to pattern without support. LTG Duration 8 weeks SL stance Impairment Pt is unable to complete SLS Short Term Goal (STG) pt will be able to complete SLS for 5s or more STG Duration 07/30/20 Skilled Nursing Goal (LTG) pt will be able to complete SLS for 10s or more in order for him to amb / turn without excessive lateral weight shift . LTG Duration 8 weeks amb Impairment pt currently amb with 4WW at all times Short Term Goal (STG) pt will be able to amb without 4WW for household distance. STG Duration 6 weeks Franchise Broker Goal (LTG) 06/27 goal met pt will be able to amb without 4WW for community distance LTG Duration 12 weeks Four Impairment Significant limitations in lumbar ROM (10?-20?) Short Term Goal (STG) 05/20 pt is able to complete active trunk flexion and extension with mild discomfort. Cont to have difficulty with isolated lumbar flexion. Skilled Nursing Goal (LTG) 06/27 goal met pt is able to complete floor touch with full lumbar flexion LTG Duration 05/20/20 Three Impairment Pt demonstrates right foot drop during gait Short Term Goal (STG) 05/20 goal met Pt stated he doesnt have R foot drop at this point and strength is at 4/5, R hip 4- to 4/5. Franchise Broker Goal (LTG) Pt right ankle DF and hip flexion MMT to 4/5, to decrease risk for foot drop and improve gait quality LTG Duration 06/30/20 Two Impairment Pt ambulates 332' (1.43 ft/sec ) using a FWW during a Two Minute Walk Test Short Term Goal (STG) 06/27/20 Pt is able to complete 816' in 6 MWT with hiking poles. Pt took 1 break a between. Pt will be able to amb with LRAD to complete 6 MWT for 900 ft. STG Duration 07/30/20 Franchise Broker Goal (LTG) Pt to complete a six minute walk test without AD for >600 ft. LTG Duration 8 weeks One Impairment Pt does not have an appropriate home exercise program Short Term Goal (STG) 05/20 cont in progress pt stated that he is not that compliant with HEP but HEP did help him Pt to be independent and compliant with an appropriate HEP STG Duration 06/19 Assessment Summary Assessment Pt tolerated supine manual stretching and prone hip ext AROM, unable to perform R SL bridge due to R anterolateral hip weakness stating I had a tear in the muscle a while ago and it' still healing. Reported LBP during standing ex which required BUE support alternating B step taps then step up/downs on L only unable RLE due to increased hip/ quad weakness today, almost buckled with 2 separate rep assessment. Pt request multiple seated rests today for recovery, with statement my back is getting irritated but no LB pain scale rating given when asked. Pt was welcoming to manual STMs to R> L lumbar paraspinals, QL glut med, PF, R more sensitive than L today in prone then ended with MHP, declined ES combo. EXERCISE TEACHER recommended sitting position but patient stated face down is good. Pt demonstrated continued difficulty upright trunk posture and ambulating using trekk poles more than 25 ft at a time before stopped stand rest. Physical Therapy Plan Frequency and Duration Frequency of Treatment 2x/Week Duration of Treatment 12 weeks Plan of Care Start Date 05/20/20 Plan of Care End Date 09/17/20 Therapeutic Interventions Therapeutic Interventions Balance Training,Gait Training ,Home Exercise Program,Joint Mobilizations,Manual Therapy, Neuromuscular Re-education, Patient/Caregiver Education, Self-Care/Home Management,Soft Tissue Mobilization, Therapeutic Activities, Therapeutic Exercises Modalities Cold Pack/Ice Massage,Electric Stimulation,Hot Packs, Ultrasound Next Visit Focus/Plan Next Note Type Treatment Note Next Visit Plan Assess response to step taps/ up downs BUE at B rails, manual STM& stretching then MHP last tx to assist LB irritation reported. Continue to encourage increased HEP compliance, continue PT per POC. SLS strength and balance focused.
--- NOTE | 2020-09-02 11:29 | PT.OTN ---
Current Diagnoses Foot drop, right foot (09/02/20) Stiffness of unspecified joint, not elsewhere classified (09/02/20) Stiffness of right hip, not elsewhere classified (09/02/20) Stiffness of left hip, not elsewhere classified (09/02/20) Radiculopathy, lumbar region (09/02/20) Muscle weakness (generalized) (09/02/20) Other abnormalities of gait and mobility (09/02/20) Physical Therapy Treatment Note PT-OP-A Visit Information Start: 03/18/20 17:40 Freq: Status: Active Protocol: Document 09/02/20 09:46 HH (Rec: 09/02/20 11:29 HH [id number]) Out-Patient Physical Therapy Visit Information Visit Information Visit Type Treatment Note Visit Start Time 10:32 Visit Stop Time 11:15 Total Visit Minutes 43 Visit Number 28 Number of [employer] Visits 0 PT-OP-B Current Condition Start: 03/18/20 17:40 Freq: Status: Active Protocol: Document 03/18/20 14:30 DCW (Rec: 03/18/20 17:52 DCW [id number]) Current Condition History of Current Condition Onset Date Eight weeks Current Complaints weakness, gait difficulty, LBP , decreased activity tolerance History of Current Condition Pt is a 69 year old male presenting eight weeks s/p L4- 5 microdiscectomy. Pt reports he has been experiencing low back pain for years, but about 5 months ago, the pain began to rapidly accelerate, and he was found to have ruptured his L4-5 disc. Unfortunately, due to Covid-19 shutdowns, he was unable to get in to have anything done with it, until he finally underwent a microdiscectomy eight weeks ago. Pt reports that prior to the surgery, he was barely moving around, and feels like he has lost a lot of strength and mobility. Pt reports that he had been experiencing weakness and radicular pain down his left leg prior to surgery, however that has improved, and he now has significant right-sided leg weakness. Pt reports he did not use any assistive device prior to his disc rupture, but has pretty much been using a 4WW ever since. Pt is beginning to notice shoulder pain because he is bearing so much weight through his upper extremities. Reports he currently gets fatigued just walking across the room. Treatment Goals Patient/Caregiver Goals I really want to regain strength in my right leg. PT-OP-C Subjective Start: 03/18/20 17:40 Freq: Status: Active Protocol: Document 09/02/20 09:46 HH (Rec: 09/02/20 11:29 HH [id number]) OP-PT Subjective Patient Comments Patient Comments I was in prone for so long during last session and it aggravated my back for days that i was hardly walking Patient Reported Progress Same PT-OP-E Functional Tests Start: 03/18/20 17:40 Freq: Status: Active Protocol: Document 06/27/20 14:11 HH (Rec: 06/27/20 14:13 HH [id number]) Functional Tests 6 Minute Walk Test Distance 816 Device Used hiking sticks Comments pt took a rest break at 1:55 remaining Other Single leg stance Name of Test pt cannot complete 360 turns Name of Test 4 second each direction Comment limping noted PT-OP-F Manual Assessment Start: 03/18/20 17:40 Freq: Status: Active Protocol: Document 03/18/20 14:30 DCW (Rec: 03/19/20 09:44 DCW [id number]) Manual Assessments Soft Tissue Assessment Soft Tissue Mobility Assessment Hypertonia and tenderness to palpation 2/4: Pain with wincing along bilateral piriformis, bilateral hamstring, bilateral psoas. Joint Mobility Assessment Joint Mobility Assessment Minimal mobility through lumbar spine, majority of flexion movement comes from hips. PT-OP-G Mobility & Gait Start: 03/18/20 17:40 Freq: Status: Active Protocol: Document 03/18/20 14:30 DCW (Rec: 03/19/20 09:44 DCW [id number]) OP Gait Assessment Gait Gait Assistance Required: Standby Assistance Distance (Feet) 178 Able to Maintain Weight Bearing Status Yes During Gait Assistive Devices Assistive Device Gait Belt,4 Wheeled Walker Orthotic/Prosthetic Devices or Brace: No Gait Deviations General Gait Pattern Antalgic,Ataxic,Decreased Stride Length,Decreased Feet Clearance,Flexed Trunk,Wide Based Gait Factors Limiting Gait Function Factors Limiting Gait Function Decreased Activity Tolerance, Decreased Strength,Limited Range of Motion,Pain PT-OP-K Range of Motion Start: 03/18/20 17:40 Freq: Status: Active Protocol: Document 03/18/20 14:30 DCW (Rec: 03/19/20 09:44 DCW [id number]) Lumbar Spine Range of Motion Lumbar Spine Active Degrees Testing Position Standing Flexion 20 Extension 10 ROM Limitations Soft Tissue Tightness,Bony Restriction,Muscle Weakness, Muscle Tone,Pain Comments When attempting to stand upright, pt is still flexed forward 10?, and then despite appearing to have good forward flexion, his lumbar spine only flexes to 20?, and the remainder of the movement comes from his hip. PT-OP-M Strength Start: 03/18/20 17:40 Freq: Status: Active Protocol: Document 03/18/20 14:30 DCW (Rec: 03/19/20 17:21 DCW [id number]) Hip Strength Hip Manual Muscle Testing Right Flexion (L2) 3+ Fair+ Abduction 4 Good Adduction 4 Good Left Flexion (L2) 4+ Good+ Abduction 4+ Good+ Adduction 4+ Good+ Knee Strength Knee Manual Muscle Testing Right Flexion (S2) 4+ Good+ Extension (L3) 4+ Good+ Left Flexion (S2) 4+ Good+ Extension (L3) 4+ Good+ Ankle/Foot Strength Ankle and Foot Manual Muscle Testing Right Dorsiflexion (L4) 3+ Fair+ Plantarflexion (S1) 4 Good Left Dorsiflexion (L4) 4+ Good+ Plantarflexion (S1) 4+ Good+ PT-OP-Q Treatments Start: 03/18/20 17:40 Freq: Status: Active Protocol: Document 09/02/20 09:46 HH (Rec: 09/02/20 11:29 HH [id number]) Cardio Equipment Recumbent Stepper (Sci-Fit) Duration (Minutes) 5 Resistance 3.0 Therapeutic Exercises Sitting Exercises seated reach Sitting Exercise Name seated reach to ground ( buttocks against table) Reps/Minutes 10 x1, 10 x1 with 5 lbs ball Comments tightness at the begining but subsided Standing Exercises toe touch Reps/Minutes 8 x1 then with KB 20 lbs step up Side bilateral Equipment Used 6 Reps/Minutes 2x8 reps with seated rest betweend 2nd LBP Comments with BUE support on rails. toe tap Side bilateral Equipment Used 6, B HR Reps/Minutes 20 times x4 Comments improved SL stance Deadlift Reps/Minutes 10 x2 PT-OP-R Modalities Start: 03/18/20 17:40 Freq: Status: Active Protocol: Document 08/27/20 08:55 SP (Rec: 08/27/20 11:12 SP [id number]) Hot Pack/Cold Pack Treatment MHP LS Location B LS Patient Position Prone Treatment Duration (minutes) 10 Patient Tolerance Good Comments decrease LBP PT-OP-T Assessment and Plan Start: 03/18/20 17:40 Freq: Status: Active Protocol: Document 09/02/20 09:46 HH (Rec: 09/02/20 11:29 HH [id number]) Physical Therapy Assessment Goals stair climb Impairment pt needs B support for stair climb Mcfp Goal (LTG) pt will show improve single leg strength so he will be able to complete stair climb ( 3-5 steps) with a step to pattern without support. LTG Duration 8 weeks SL stance Impairment Pt is unable to complete SLS Short Term Goal (STG) pt will be able to complete SLS for 5s or more STG Duration 07/30/20 Caregivers Homecare Goal (LTG) pt will be able to complete SLS for 10s or more in order for him to amb / turn without excessive lateral weight shift . LTG Duration 8 weeks amb Impairment pt currently amb with 4WW at all times Short Term Goal (STG) pt will be able to amb without 4WW for household distance. STG Duration 6 weeks Mcfp Goal (LTG) 06/27 goal met pt will be able to amb without 4WW for community distance LTG Duration 12 weeks Four Impairment Significant limitations in lumbar ROM (10?-20?) Short Term Goal (STG) 05/20 pt is able to complete active trunk flexion and extension with mild discomfort. Cont to have difficulty with isolated lumbar flexion. Mcfp Goal (LTG) 06/27 goal met pt is able to complete floor touch with full lumbar flexion LTG Duration 05/20/20 Three Impairment Pt demonstrates right foot drop during gait Short Term Goal (STG) 05/20 goal met Pt stated he doesnt have R foot drop at this point and strength is at 4/5, R hip 4- to 4/5. Caregivers Homecare Goal (LTG) Pt right ankle DF and hip flexion MMT to 4/5, to decrease risk for foot drop and improve gait quality LTG Duration 06/30/20 Two Impairment Pt ambulates 332' (1.43 ft/sec ) using a FWW during a Two Minute Walk Test Short Term Goal (STG) 06/27/20 Pt is able to complete 816' in 6 MWT with hiking poles. Pt took 1 break a between. Pt will be able to amb with LRAD to complete 6 MWT for 900 ft. STG Duration 07/30/20 Caregivers Homecare Goal (LTG) Pt to complete a six minute walk test without AD for >600 ft. LTG Duration 8 weeks One Impairment Pt does not have an appropriate home exercise program Short Term Goal (STG) 05/20 cont in progress pt stated that he is not that compliant with HEP but HEP did help him Pt to be independent and compliant with an appropriate HEP STG Duration 06/19 Assessment Summary Assessment Pt had a setback after being in prone position from last visit. Educated pt regarding positional preference for spinal stenosis. Pt felt better after extensive lumbar flexion stretching today. His SL stability and strength cont to improve who shows improved feet clearance during swing phase of ambulation. Physical Therapy Plan Frequency and Duration Frequency of Treatment 2x/Week Duration of Treatment 12 weeks Plan of Care Start Date 05/20/20 Plan of Care End Date 09/17/20 Next Visit Focus/Plan Next Note Type Treatment Note Next Visit Plan Assess response to step taps/ up downs BUE at B rails, manual STM& stretching then MHP last tx to assist LB irritation reported. Continue to encourage increased HEP compliance, continue PT per POC. SLS strength and balance focused.
--- NOTE | 2020-09-05 12:02 | PT.OTN ---
Current Diagnoses Foot drop, right foot (09/05/20) Stiffness of unspecified joint, not elsewhere classified (09/05/20) Stiffness of right hip, not elsewhere classified (09/05/20) Stiffness of left hip, not elsewhere classified (09/05/20) Radiculopathy, lumbar region (09/05/20) Muscle weakness (generalized) (09/05/20) Other abnormalities of gait and mobility (09/05/20) Physical Therapy Treatment Note PT-OP-A Visit Information Start: 03/18/20 17:40 Freq: Status: Active Protocol: Document 09/05/20 09:49 HH (Rec: 09/05/20 12:02 HH [id number]) Out-Patient Physical Therapy Visit Information Visit Information Visit Type Treatment Note Visit Start Time 09:48 Visit Stop Time 10:30 Total Visit Minutes 42 Visit Number 29 Number of 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 Pt reports he has been experiencing low back pain for years, but about 5 months ago, the pain began to rapidly accelerate, and he was found to have ruptured his L4-5 disc. Unfortunately, due to Covid-19 shutdowns, he was unable to get in to have anything done with it, until he finally underwent a microdiscectomy eight weeks ago. Pt reports that prior to the surgery, he was barely moving around, and feels like he has lost a lot of strength and mobility. Pt reports that he had been experiencing weakness and radicular pain down his left leg prior to surgery, however that has improved, and he now has significant right-sided leg weakness. Pt reports he did not use any assistive device prior to his disc rupture, but has pretty much been using a 4WW ever since. Pt is beginning to notice shoulder pain because he is bearing so much weight through his upper extremities. Reports he currently gets fatigued just walking across the room. Treatment Goals Patient/Caregiver Goals I really want to regain strength in my right leg. PT-OP-C Subjective Start: 03/18/20 17:40 Freq: Status: Active Protocol: Document 09/05/20 09:49 HH (Rec: 09/05/20 12:02 HH [id number]) OP-PT Subjective Patient Comments Patient Comments My back is pretty stiff this morning. Patient Reported Progress Same PT-OP-E Functional Tests Start: 03/18/20 17:40 Freq: Status: Active Protocol: Document 06/27/20 14:11 HH (Rec: 06/27/20 14:13 HH [id number]) Functional Tests 6 Minute Walk Test Distance 816 Device Used hiking sticks Comments pt took a rest break at 1:55 remaining Other Single leg stance Name of Test pt cannot complete 360 turns Name of Test 4 second each direction Comment limping noted PT-OP-F Manual Assessment Start: 03/18/20 17:40 Freq: Status: Active Protocol: Document 03/18/20 14:30 DCW (Rec: 03/19/20 09:44 DCW [id number]) Manual Assessments Soft Tissue Assessment Soft Tissue Mobility Assessment Hypertonia and tenderness to palpation 2/4: Pain with wincing along bilateral piriformis, bilateral hamstring, bilateral psoas. Joint Mobility Assessment Joint Mobility Assessment Minimal mobility through lumbar spine, majority of flexion movement comes from hips. PT-OP-G Mobility & Gait Start: 03/18/20 17:40 Freq: Status: Active Protocol: Document 03/18/20 14:30 DCW (Rec: 03/19/20 09:44 DCW [id number]) OP Gait Assessment Gait Gait Assistance Required: Standby Assistance Distance (Feet) 178 Able to Maintain Weight Bearing Status Yes During Gait Assistive Devices Assistive Device Gait Belt,4 Wheeled Walker Orthotic/Prosthetic Devices or Brace: No Gait Deviations General Gait Pattern Antalgic,Ataxic,Decreased Stride Length,Decreased Feet Clearance,Flexed Trunk,Wide Based Gait Factors Limiting Gait Function Factors Limiting Gait Function Decreased Activity Tolerance, Decreased Strength,Limited Range of Motion,Pain PT-OP-K Range of Motion Start: 03/18/20 17:40 Freq: Status: Active Protocol: Document 03/18/20 14:30 DCW (Rec: 03/19/20 09:44 DCW [id number]) Lumbar Spine Range of Motion Lumbar Spine Active Degrees Testing Position Standing Flexion 20 Extension 10 ROM Limitations Soft Tissue Tightness,Bony Restriction,Muscle Weakness, Muscle Tone,Pain Comments When attempting to stand upright, pt is still flexed forward 10?, and then despite appearing to have good forward flexion, his lumbar spine only flexes to 20?, and the remainder of the movement comes from his hip. PT-OP-M Strength Start: 03/18/20 17:40 Freq: Status: Active Protocol: Document 03/18/20 14:30 DCW (Rec: 03/19/20 17:21 DCW [id number]) Hip Strength Hip Manual Muscle Testing Right Flexion (L2) 3+ Fair+ Abduction 4 Good Adduction 4 Good Left Flexion (L2) 4+ Good+ Abduction 4+ Good+ Adduction 4+ Good+ Knee Strength Knee Manual Muscle Testing Right Flexion (S2) 4+ Good+ Extension (L3) 4+ Good+ Left Flexion (S2) 4+ Good+ Extension (L3) 4+ Good+ Ankle/Foot Strength Ankle and Foot Manual Muscle Testing Right Dorsiflexion (L4) 3+ Fair+ Plantarflexion (S1) 4 Good Left Dorsiflexion (L4) 4+ Good+ Plantarflexion (S1) 4+ Good+ PT-OP-Q Treatments Start: 03/18/20 17:40 Freq: Status: Active Protocol: Document 09/05/20 09:49 HH (Rec: 09/05/20 12:02 HH [id number]) Therapeutic Exercises Supine Exercises piriformis stretch Supine Exercise Name manual Side bilateral Reps/Minutes 60 x2 Comments no pain noted HS stretch Side bilateral Reps/Minutes 60 x2 Comments manual, no pain Prone Exercises hip extension Prone Exercise Name hands on table Side bilateral Reps/Minutes 8x2 Comments cued core facilitation Sitting Exercises seated reach Sitting Exercise Name seated reach to ground ( buttocks against table) Reps/Minutes 10 x 2 sets 10 lbs ball Standing Exercises toe touch Reps/Minutes 8 x2 Comments full flexoin to full extension step up Side bilateral Equipment Used 6 Reps/Minutes 2x8 reps with seated rest betweend 2nd LBP Comments with BUE support on rails. toe tap Side bilateral Equipment Used 6, B HR Reps/Minutes 20 times x4 Comments improved SL stance Deadlift Reps/Minutes 10 x2 Comments with neutral spine Gait Training Gait Activity ground level Device Used none Level of Assistance CGA Surface ground level Distance/Duration 200 ft x 2 Comments cues on upright posture and heel strike. Pt shows improved stride length and gait mechanics PT-OP-R Modalities Start: 03/18/20 17:40 Freq: Status: Active Protocol: Document 08/27/20 08:55 SP (Rec: 08/27/20 11:12 SP [id number]) Hot Pack/Cold Pack Treatment MHP LS Location B LS Patient Position Prone Treatment Duration (minutes) 10 Patient Tolerance Good Comments decrease LBP PT-OP-T Assessment and Plan Start: 03/18/20 17:40 Freq: Status: Active Protocol: Document 09/05/20 09:49 HH (Rec: 09/05/20 12:02 HH [id number]) Physical Therapy Assessment Goals stair climb Impairment pt needs B support for stair climb Jail Officer Goal (LTG) pt will show improve single leg strength so he will be able to complete stair climb ( 3-5 steps) with a step to pattern without support. LTG Duration 8 weeks SL stance Impairment Pt is unable to complete SLS Short Term Goal (STG) pt will be able to complete SLS for 5s or more STG Duration 07/30/20 Jail Officer Goal (LTG) pt will be able to complete SLS for 10s or more in order for him to amb / turn without excessive lateral weight shift . LTG Duration 8 weeks amb Impairment pt currently amb with 4WW at all times Short Term Goal (STG) pt will be able to amb without 4WW for household distance. STG Duration 6 weeks Jail Officer Goal (LTG) 06/27 goal met pt will be able to amb without 4WW for community distance LTG Duration 12 weeks Four Impairment Significant limitations in lumbar ROM (10?-20?) Short Term Goal (STG) 05/20 pt is able to complete active trunk flexion and extension with mild discomfort. Cont to have difficulty with isolated lumbar flexion. Jail Goal (LTG) 06/27 goal met pt is able to complete floor touch with full lumbar flexion LTG Duration 05/20/20 Three Impairment Pt demonstrates right foot drop during gait Short Term Goal (STG) 05/20 goal met Pt stated he doesnt have R foot drop at this point and strength is at 4/5, R hip 4- to 4/5. Jail Officer Goal (LTG) Pt right ankle DF and hip flexion MMT to 4/5, to decrease risk for foot drop and improve gait quality LTG Duration 06/30/20 Assessment Summary Assessment Pt came in with low back stiffness but improved after mobility ex. He is progressing slowly but does show improved gait mechanics and SL stability Physical Therapy Plan Frequency and Duration Frequency of Treatment 2x/Week Duration of Treatment 12 weeks Plan of Care Start Date 05/20/20 Plan of Care End Date 09/17/20 Next Visit Focus/Plan Next Note Type Treatment Note Next Visit Plan stretch, hip extension, SL stability toe tap, step up and kymberly ttrianing
--- NOTE | 2020-09-09 11:57 | PT.OTN ---
Current Diagnoses Foot drop, right foot (09/09/20) Stiffness of unspecified joint, not elsewhere classified (09/09/20) Stiffness of right hip, not elsewhere classified (09/09/20) Stiffness of left hip, not elsewhere classified (09/09/20) Radiculopathy, lumbar region (09/09/20) Muscle weakness (generalized) (09/09/20) Other abnormalities of gait and mobility (09/09/20) Physical Therapy Treatment Note PT-OP-A Visit Information Start: 03/18/20 17:40 Freq: Status: Active Protocol: Document 09/09/20 09:45 HH (Rec: 09/09/20 11:49 HH [id number]) Out-Patient Physical Therapy Visit Information Visit Information Visit Type Progress Note Visit Start Time 09:46 Visit Stop Time 10:30 Total Visit Minutes 44 Visit Number 30 Number of MACHINE DESIGN TEACHER Visits 0 PT-OP-B Current Condition Start: 03/18/20 17:40 Freq: Status: Active Protocol: Document 03/18/20 14:30 DCW (Rec: 03/18/20 17:52 DCW [id number]) Current Condition History of Current Condition Onset Date Eight weeks Current Complaints weakness, gait difficulty, LBP , decreased activity tolerance History of Current Condition Pt is a 69 year old male presenting eight weeks s/p L4- 5 microdiscectomy. Pt reports he has been experiencing low back pain for years, but about 5 months ago, the pain began to rapidly accelerate, and he was found to have ruptured his L4-5 disc. Unfortunately, due to Covid-19 shutdowns, he was unable to get in to have anything done with it, until he finally underwent a microdiscectomy eight weeks ago. Pt reports that prior to the surgery, he was barely moving around, and feels like he has lost a lot of strength and mobility. Pt reports that he had been experiencing weakness and radicular pain down his left leg prior to surgery, however that has improved, and he now has significant right-sided leg weakness. Pt reports he did not use any assistive device prior to his disc rupture, but has pretty much been using a 4WW ever since. Pt is beginning to notice shoulder pain because he is bearing so much weight through his upper extremities. Reports he currently gets fatigued just walking across the room. Treatment Goals Patient/Caregiver Goals I really want to regain strength in my right leg. PT-OP-C Subjective Start: 03/18/20 17:40 Freq: Status: Active Protocol: Document 09/09/20 09:45 HH (Rec: 09/09/20 11:49 HH [id number]) OP-PT Subjective Patient Comments Patient Comments Im doing okay and i feel kind of stiff this morning Patient Reported Progress Same PT-OP-E Functional Tests Start: 03/18/20 17:40 Freq: Status: Active Protocol: Document 06/27/20 14:11 HH (Rec: 06/27/20 14:13 HH [id number]) Functional Tests 6 Minute Walk Test Distance 816 Device Used hiking sticks Comments pt took a rest break at 1:55 remaining Other Single leg stance Name of Test pt cannot complete 360 turns Name of Test 4 second each direction Comment limping noted PT-OP-F Manual Assessment Start: 03/18/20 17:40 Freq: Status: Active Protocol: Document 03/18/20 14:30 DCW (Rec: 03/19/20 09:44 DCW [id number]) Manual Assessments Soft Tissue Assessment Soft Tissue Mobility Assessment Hypertonia and tenderness to palpation 2/4: Pain with wincing along bilateral piriformis, bilateral hamstring, bilateral psoas. Joint Mobility Assessment Joint Mobility Assessment Minimal mobility through lumbar spine, majority of flexion movement comes from hips. PT-OP-G Mobility & Gait Start: 03/18/20 17:40 Freq: Status: Active Protocol: Document 03/18/20 14:30 DCW (Rec: 03/19/20 09:44 DCW [id number]) OP Gait Assessment Gait Gait Assistance Required: Standby Assistance Distance (Feet) 178 Able to Maintain Weight Bearing Status Yes During Gait Assistive Devices Assistive Device Gait Belt,4 Wheeled Walker Orthotic/Prosthetic Devices or Brace: No Gait Deviations General Gait Pattern Antalgic,Ataxic,Decreased Stride Length,Decreased Feet Clearance,Flexed Trunk,Wide Based Gait Factors Limiting Gait Function Factors Limiting Gait Function Decreased Activity Tolerance, Decreased Strength,Limited Range of Motion,Pain PT-OP-K Range of Motion Start: 03/18/20 17:40 Freq: Status: Active Protocol: Document 03/18/20 14:30 DCW (Rec: 03/19/20 09:44 DCW [id number]) Lumbar Spine Range of Motion Lumbar Spine Active Degrees Testing Position Standing Flexion 20 Extension 10 ROM Limitations Soft Tissue Tightness,Bony Restriction,Muscle Weakness, Muscle Tone,Pain Comments When attempting to stand upright, pt is still flexed forward 10?, and then despite appearing to have good forward flexion, his lumbar spine only flexes to 20?, and the remainder of the movement comes from his hip. PT-OP-M Strength Start: 03/18/20 17:40 Freq: Status: Active Protocol: Document 03/18/20 14:30 DCW (Rec: 03/19/20 17:21 DCW [id number]) Hip Strength Hip Manual Muscle Testing Right Flexion (L2) 3+ Fair+ Abduction 4 Good Adduction 4 Good Left Flexion (L2) 4+ Good+ Abduction 4+ Good+ Adduction 4+ Good+ Knee Strength Knee Manual Muscle Testing Right Flexion (S2) 4+ Good+ Extension (L3) 4+ Good+ Left Flexion (S2) 4+ Good+ Extension (L3) 4+ Good+ Ankle/Foot Strength Ankle and Foot Manual Muscle Testing Right Dorsiflexion (L4) 3+ Fair+ Plantarflexion (S1) 4 Good Left Dorsiflexion (L4) 4+ Good+ Plantarflexion (S1) 4+ Good+ PT-OP-Q Treatments Start: 03/18/20 17:40 Freq: Status: Active Protocol: Document 09/09/20 09:45 HH (Rec: 09/09/20 11:49 HH [id number]) Cardio Equipment Recumbent Stepper (Sci-Fit) Duration (Minutes) 6 Resistance 3 Therapeutic Exercises Supine Exercises piriformis stretch Supine Exercise Name manual Side bilateral Reps/Minutes 60 x2 Comments no pain noted HS stretch Side bilateral Reps/Minutes 60 x2 Comments manual, no pain pelvic tilt Reps/Minutes 10 x2 Comments discomfort noted at low back but subside with abdominal brace LTR Equipment Used w/ red therapy ball Reps/Minutes 10 x2 Comments no dsicomfort noted ab curl Equipment Used w/ red therapy ball Reps/Minutes 10 x2 Comments no discomofrt noted Sitting Exercises seated reach Sitting Exercise Name seated reach to ground ( buttocks against table) Reps/Minutes 5 x 2 sets Comments reports of L sharp LBP. Manual Therapy Treatment Manual Traction hip distriction Body Position Supine Reps/Duration 10 sec hold x5 Comments reports relief of symptoms. PT-OP-R Modalities Start: 03/18/20 17:40 Freq: Status: Active Protocol: Document 08/27/20 08:55 SP (Rec: 08/27/20 11:12 SP [id number]) Hot Pack/Cold Pack Treatment MHP LS Location B LS Patient Position Prone Treatment Duration (minutes) 10 Patient Tolerance Good Comments decrease LBP PT-OP-T Assessment and Plan Start: 03/18/20 17:40 Freq: Status: Active Protocol: Document 09/09/20 09:45 HH (Rec: 09/09/20 11:49 HH [id number]) Physical Therapy Assessment Goals stair climb Impairment pt needs B support for stair climb [facility] Goal (LTG) pt will show improve single leg strength so he will be able to complete stair climb ( 3-5 steps) with a step to pattern without support. LTG Duration 8 weeks SL stance Impairment Pt is unable to complete SLS Short Term Goal (STG) pt will be able to complete SLS for 5s or more STG Duration 07/30/20 Distance Education Coordinator Goal (LTG) pt will be able to complete SLS for 10s or more in order for him to amb / turn without excessive lateral weight shift . LTG Duration 8 weeks amb Impairment pt currently amb with 4WW at all times Short Term Goal (STG) pt will be able to amb without 4WW for household distance. STG Duration 6 weeks Distance Education Coordinator Goal (LTG) 06/27 goal met pt will be able to amb without 4WW for community distance LTG Duration 12 weeks Four Impairment Significant limitations in lumbar ROM (10?-20?) Short Term Goal (STG) 05/20 pt is able to complete active trunk flexion and extension with mild discomfort. Cont to have difficulty with isolated lumbar flexion. Distance Education Coordinator Goal (LTG) 06/27 goal met pt is able to complete floor touch with full lumbar flexion LTG Duration 05/20/20 Three Impairment Pt demonstrates right foot drop during gait Short Term Goal (STG) 05/20 goal met Pt stated he doesnt have R foot drop at this point and strength is at 4/5, R hip 4- to 4/5. [facility] Goal (LTG) Pt right ankle DF and hip flexion MMT to 4/5, to decrease risk for foot drop and improve gait quality LTG Duration 11/1/20 Two Impairment Pt ambulates 332' (1.43 ft/sec ) using a FWW during a Two Minute Walk Test Short Term Goal (STG) 06/27/20 Pt is able to complete 816' in 6 MWT with hiking poles. Pt took 1 break a between. Pt will be able to amb with LRAD to complete 6 MWT for 900 ft. STG Duration 07/30/20 Distance Education Coordinator Goal (LTG) Pt to complete a six minute walk test without AD for >600 ft. LTG Duration 8 weeks One Impairment Pt does not have an appropriate home exercise program Short Term Goal (STG) 05/20 cont in progress pt stated that he is not that compliant with HEP but HEP did help him Pt to be independent and compliant with an appropriate HEP STG Duration 06/19 Assessment Summary Assessment Pt came in with low back stiffness and had irritation with sharp pain at L side of lumbar region. Pt has difficulty mobilizing today and needed to use 4WW to leave the clinic. Pt possibly has nerve impingement and will cont monitor his progress. Will reassess his rehab once his pain is stabilized. Physical Therapy Plan Frequency and Duration Frequency of Treatment 2x/Week Duration of Treatment 12 weeks Plan of Care Start Date 05/20/20 Plan of Care End Date 09/17/20 Next Visit Focus/Plan Next Note Type Progress Note Next Visit Plan stretch, hip extension, SL stability toe tap, step up and kymberly ttrianing
--- NOTE | 2020-09-16 12:37 | PT.OPPOC ---
Physical, Occupational & Speech Therapy At [facility] Current Diagnoses Foot drop, right foot (09/16/20) Stiffness of unspecified joint, not elsewhere classified (09/16/20) Stiffness of right hip, not elsewhere classified (09/16/20) Stiffness of left hip, not elsewhere classified (09/16/20) Radiculopathy, lumbar region (09/16/20) Muscle weakness (generalized) (09/16/20) Other abnormalities of gait and mobility (09/16/20) Visit Care Team Role Provider Type Robin Lee MD Family Provider Physician Primary Care Provider Specialty: Internal Medicine Address: [address] [place] [address], [id number] Email: [email or web address] Shaka Reeves MD Attending Provider Non-Staff Referring Provider Specialty: Medical Address: [address] [place] [address], [phone] Email: Plan Of Care PT-OP-T Assessment and Plan Start: 03/18/20 17:40 Freq: Status: Active Protocol: Document 09/16/20 09:45 HH (Rec: 09/16/20 12:37 HH [id number]) Physical Therapy Assessment Goals stair climb Impairment pt needs B support for stair climb Short Term Goal (STG) 09/16 pt was able to toe tap on stairs w/o support for the past month but unable currently d/t recent flare up [facility] Goal (LTG) pt will show improve single leg strength so he will be able to complete stair climb ( 3-5 steps) with a step to pattern without support. LTG Duration 8 weeks SL stance Impairment Pt is unable to complete SLS Short Term Goal (STG) 09/16/20 pt previously was able to hold up to 3 s but unable since this recent flare up pt will be able to complete SLS for 5s or more STG Duration 07/30/20 Applique Sewer Goal (LTG) pt will be able to complete SLS for 10s or more in order for him to amb / turn without excessive lateral weight shift . LTG Duration 8 weeks amb Impairment pt currently amb with 4WW at all times Short Term Goal (STG) 09/16/20 pt has been able to not use 4WW, but just w/o AD or hiking poles for mobility for the past 2 months. However , he started using 4WW d/t recent flare up pt will be able to amb without 4WW for household distance. STG Duration 6 weeks [facility] Goal (LTG) 06/27 goal met pt will be able to amb without 4WW for community distance LTG Duration 12 weeks Four Impairment Significant limitations in lumbar ROM (10?-?) Short Term Goal (STG) 05/20 pt is able to complete active trunk flexion and extension with mild discomfort. Cont to have difficulty with isolated lumbar flexion. [facility] Goal (LTG) 06/27 goal met pt is able to complete floor touch with full lumbar flexion LTG Duration 05/20/20 Three Impairment Pt demonstrates right foot drop during gait Short Term Goal (STG) 05/20 goal met Pt stated he doesnt have R foot drop at this point and strength is at 4/5, R hip 4- to 4/5. [facility] Goal (LTG) 09/16/20 pt regain full ROM and strength at R ankle DF/PF LTG Duration 06/30/20 Two Impairment Pt ambulates 332' (1.43 ft/sec ) using a FWW during a Two Minute Walk Test Short Term Goal (STG) 06/27/20 Pt is able to complete 816' in 6 MWT with hiking poles. Pt took 1 break a between. Pt will be able to amb with LRAD to complete 6 MWT for 900 ft. STG Duration 07/30/20 [facility] Goal (LTG) 12 weeks Pt to complete a six minute walk test without AD for 1000 ft. LTG Duration 8 weeks One Impairment Pt does not have an appropriate home exercise program Short Term Goal (STG) 05/20 cont in progress pt stated that he is not that compliant with HEP but HEP did help him Pt to be independent and compliant with an appropriate HEP STG Duration 06/19 Progress Towards Goals Progress Towards Goals Slow Progress due to Activity Tolerance,Slow Progress due to Medical Issues,Slow Progress - Other Assessment Summary Assessment Reassessment today. Pt has had a recent flare up at low back with increased stiffness and pain which limits his mobility (using 4WW at this point) since last week. I strongly believe this flare ups involves irritation with skeletal structure at Lumbar spine (no painful to pressure /touch) but without neurological deficits. However , pt has been showing improvements with his SL balance, trunk and hip strength, gait mobility for the past 2 months. Pt will cont benefit from skilled therapy to address his current increase of pain, improving his mobility, activity tolerance, trunk stability and gait mechanics. Physical Therapy Plan Frequency and Duration Frequency of Treatment 2x/Week Duration of Treatment 12 weeks Plan of Care Start Date 09/16/20 Plan of Care End Date 12/15/20 Next Visit Focus/Plan Next Note Type Progress Note Next Visit Plan stretch, hip extension, SL stability toe tap, step up and kymberly ttrianing Plan of Care Dates Plan of Care Start Date 09/16/20 Plan of Care End Date 12/15/20 Electronically Signed by: Willie Uribe PT 09/16/20 [id number] Please Sign and Return: I have reviewed this Plan of Care and certify that the skilled therapy services above are required to meet the patient?s needs. Physician Signature Date Printed Name and Credentials Clinical Instructor Signature Printed Name and Credentials
--- NOTE | 2020-09-16 12:37 | PT.OTN ---
Current Diagnoses Foot drop, right foot (09/16/20) Stiffness of unspecified joint, not elsewhere classified (09/16/20) Stiffness of right hip, not elsewhere classified (09/16/20) Stiffness of left hip, not elsewhere classified (09/16/20) Radiculopathy, lumbar region (09/16/20) Muscle weakness (generalized) (09/16/20) Other abnormalities of gait and mobility (09/16/20) Physical Therapy Treatment Note PT-OP-A Visit Information Start: 03/18/20 17:40 Freq: Status: Active Protocol: Document 09/16/20 09:45 HH (Rec: 09/16/20 12:37 HH [id number]) Out-Patient Physical Therapy Visit Information Visit Information Visit Type Progress Note Visit Start Time 09:46 Visit Stop Time 10:30 Total Visit Minutes 44 Visit Number 30 Number of LIGHT TECHNICIAN Visits 0 PT-OP-B Current Condition Start: 03/18/20 17:40 Freq: Status: Active Protocol: Document 03/18/20 14:30 DCW (Rec: 03/18/20 17:52 DCW [id number]) Current Condition History of Current Condition Onset Date Eight weeks Current Complaints weakness, gait difficulty, LBP , decreased activity tolerance History of Current Condition Pt is a 69 year old male presenting eight weeks s/p L4- 5 microdiscectomy. Pt reports he has been experiencing low back pain for years, but about 5 months ago, the pain began to rapidly accelerate, and he was found to have ruptured his L4-5 disc. Unfortunately, due to Covid-19 shutdowns, he was unable to get in to have anything done with it, until he finally underwent a microdiscectomy eight weeks ago. Pt reports that prior to the surgery, he was barely moving around, and feels like he has lost a lot of strength and mobility. Pt reports that he had been experiencing weakness and radicular pain down his left leg prior to surgery, however that has improved, and he now has significant right-sided leg weakness. Pt reports he did not use any assistive device prior to his disc rupture, but has pretty much been using a 4WW ever since. Pt is beginning to notice shoulder pain because he is bearing so much weight through his upper extremities. Reports he currently gets fatigued just walking across the room. Treatment Goals Patient/Caregiver Goals I really want to regain strength in my right leg. PT-OP-C Subjective Start: 03/18/20 17:40 Freq: Status: Active Protocol: Document 09/16/20 09:45 HH (Rec: 09/16/20 12:37 HH [id number]) OP-PT Subjective Patient Comments Patient Comments it has been a couple rough days and jasper been using my 4WW to get around. Patient Reported Progress Worse PT-OP-E Functional Tests Start: 03/18/20 17:40 Freq: Status: Active Protocol: Document 06/27/20 14:11 HH (Rec: 06/27/20 14:13 HH [id number]) Functional Tests 6 Minute Walk Test Distance 816 Device Used hiking sticks Comments pt took a rest break at 1:55 remaining Other Single leg stance Name of Test pt cannot complete 360 turns Name of Test 4 second each direction Comment limping noted PT-OP-F Manual Assessment Start: 03/18/20 17:40 Freq: Status: Active Protocol: Document 03/18/20 14:30 DCW (Rec: 03/19/20 09:44 DCW [id number]) Manual Assessments Soft Tissue Assessment Soft Tissue Mobility Assessment Hypertonia and tenderness to palpation 2/4: Pain with wincing along bilateral piriformis, bilateral hamstring, bilateral psoas. Joint Mobility Assessment Joint Mobility Assessment Minimal mobility through lumbar spine, majority of flexion movement comes from hips. PT-OP-G Mobility & Gait Start: 03/18/20 17:40 Freq: Status: Active Protocol: Document 03/18/20 14:30 DCW (Rec: 03/19/20 09:44 DCW [id number]) OP Gait Assessment Gait Gait Assistance Required: Standby Assistance Distance (Feet) 178 Able to Maintain Weight Bearing Status Yes During Gait Assistive Devices Assistive Device Gait Belt,4 Wheeled Walker Orthotic/Prosthetic Devices or Brace: No Gait Deviations General Gait Pattern Antalgic,Ataxic,Decreased Stride Length,Decreased Feet Clearance,Flexed Trunk,Wide Based Gait Factors Limiting Gait Function Factors Limiting Gait Function Decreased Activity Tolerance, Decreased Strength,Limited Range of Motion,Pain PT-OP-K Range of Motion Start: 03/18/20 17:40 Freq: Status: Active Protocol: Document 03/18/20 14:30 DCW (Rec: 03/19/20 09:44 DCW [id number]) Lumbar Spine Range of Motion Lumbar Spine Active Degrees Testing Position Standing Flexion 20 Extension 10 ROM Limitations Soft Tissue Tightness,Bony Restriction,Muscle Weakness, Muscle Tone,Pain Comments When attempting to stand upright, pt is still flexed forward 10?, and then despite appearing to have good forward flexion, his lumbar spine only flexes to 20?, and the remainder of the movement comes from his hip. PT-OP-M Strength Start: 03/18/20 17:40 Freq: Status: Active Protocol: Document 03/18/20 14:30 DCW (Rec: 03/19/20 17:21 DCW [id number]) Hip Strength Hip Manual Muscle Testing Right Flexion (L2) 3+ Fair+ Abduction 4 Good Adduction 4 Good Left Flexion (L2) 4+ Good+ Abduction 4+ Good+ Adduction 4+ Good+ Knee Strength Knee Manual Muscle Testing Right Flexion (S2) 4+ Good+ Extension (L3) 4+ Good+ Left Flexion (S2) 4+ Good+ Extension (L3) 4+ Good+ Ankle/Foot Strength Ankle and Foot Manual Muscle Testing Right Dorsiflexion (L4) 3+ Fair+ Plantarflexion (S1) 4 Good Left Dorsiflexion (L4) 4+ Good+ Plantarflexion (S1) 4+ Good+ PT-OP-Q Treatments Start: 03/18/20 17:40 Freq: Status: Active Protocol: Document 09/16/20 09:45 HH (Rec: 09/16/20 12:37 HH [id number]) Cardio Equipment Recumbent Bicycle Duration (Minutes) 8 Resistance 6 Gym Equipment Shuttle Recovery B squat Resistance 75# to 100# Shuttle Recovery Platform Stable Reps/Time 12 x2 uni squat Resistance 50# Shuttle Recovery Platform Stable Reps/Time 12 x2 Therapeutic Exercises Supine Exercises piriformis stretch Supine Exercise Name manual Side bilateral Reps/Minutes 60 x2 Comments no pain noted HS stretch Side bilateral Reps/Minutes 60 x2 Comments manual, no pain Sitting Exercises seated reach Sitting Exercise Name to midshin today Reps/Minutes 5 x 4 sets Comments improved stiffness today PT-OP-R Modalities Start: 03/18/20 17:40 Freq: Status: Active Protocol: Document 08/27/20 08:55 SP (Rec: 08/27/20 11:12 SP [id number]) Hot Pack/Cold Pack Treatment MHP LS Location B LS Patient Position Prone Treatment Duration (minutes) 10 Patient Tolerance Good Comments decrease LBP PT-OP-T Assessment and Plan Start: 03/18/20 17:40 Freq: Status: Active Protocol: Document 09/16/20 09:45 HH (Rec: 09/16/20 12:37 HH [id number]) Physical Therapy Assessment Goals stair climb Impairment pt needs B support for stair climb Short Term Goal (STG) 09/16 pt was able to toe tap on stairs w/o support for the past month but unable currently d/t recent flare up Stogie Packer Goal (LTG) pt will show improve single leg strength so he will be able to complete stair climb ( 3-5 steps) with a step to pattern without support. LTG Duration 8 weeks SL stance Impairment Pt is unable to complete SLS Short Term Goal (STG) 09/16/20 pt previously was able to hold up to 3 s but unable since this recent flare up pt will be able to complete SLS for 5s or more STG Duration 07/30/20 Penitentiary Goal (LTG) pt will be able to complete SLS for 10s or more in order for him to amb / turn without excessive lateral weight shift . LTG Duration 8 weeks amb Impairment pt currently amb with 4WW at all times Short Term Goal (STG) 09/16/20 pt has been able to not use 4WW, but just w/o AD or hiking poles for mobility for the past 2 months. However , he started using 4WW d/t recent flare up pt will be able to amb without 4WW for household distance. STG Duration 6 weeks Penitentiary Goal (LTG) 06/27 goal met pt will be able to amb without 4WW for community distance LTG Duration 12 weeks Four Impairment Significant limitations in lumbar ROM (10?-20?) Short Term Goal (STG) 05/20 pt is able to complete active trunk flexion and extension with mild discomfort. Cont to have difficulty with isolated lumbar flexion. Stogie Packer Goal (LTG) 06/27 goal met pt is able to complete floor touch with full lumbar flexion LTG Duration 05/20/20 Three Impairment Pt demonstrates right foot drop during gait Short Term Goal (STG) 05/20 goal met Pt stated he doesnt have R foot drop at this point and strength is at 4/5, R hip 4- to 4/5. Stogie Packer Goal (LTG) 09/16/20 pt regain full ROM and strength at R ankle DF/PF LTG Duration 06/30/20 Two Impairment Pt ambulates 332' (1.43 ft/sec ) using a FWW during a Two Minute Walk Test Short Term Goal (STG) 06/27/20 Pt is able to complete 816' in 6 MWT with hiking poles. Pt took 1 break a between. Pt will be able to amb with LRAD to complete 6 MWT for 900 ft. STG Duration 07/30/20 Stogie Packer Goal (LTG) 12 weeks Pt to complete a six minute walk test without AD for 1000 ft. LTG Duration 8 weeks One Impairment Pt does not have an appropriate home exercise program Short Term Goal (STG) 05/20 cont in progress pt stated that he is not that compliant with HEP but HEP did help him Pt to be independent and compliant with an appropriate HEP STG Duration 06/19 Progress Towards Goals Progress Towards Goals Slow Progress due to Activity Tolerance,Slow Progress due to Medical Issues,Slow Progress - Other Assessment Summary Assessment Reassessment today. Pt has had a recent flare up at low back with increased stiffness and pain which limits his mobility (using 4WW at this point) since last week. I strongly believe this flare ups involves irritation with skeletal structure at Lumbar spine (no painful to pressure /touch) but without neurological deficits. However , pt has been showing improvements with his SL balance, trunk and hip strength, gait mobility for the past 2 months. Pt will cont benefit from skilled therapy to address his current increase of pain, improving his mobility, activity tolerance, trunk stability and gait mechanics. Physical Therapy Plan Frequency and Duration Frequency of Treatment 2x/Week Duration of Treatment 12 weeks Plan of Care Start Date 09/16/20 Plan of Care End Date 12/15/20 Next Visit Focus/Plan Next Note Type Progress Note Next Visit Plan stretch, hip extension, SL stability toe tap, step up and kymberly ttrianing
--- NOTE | 2020-09-19 11:31 | PT.OTN ---
Current Diagnoses Foot drop, right foot (09/19/20) Stiffness of unspecified joint, not elsewhere classified (09/19/20) Stiffness of right hip, not elsewhere classified (09/19/20) Stiffness of left hip, not elsewhere classified (09/19/20) Radiculopathy, lumbar region (09/19/20) Muscle weakness (generalized) (09/19/20) Other abnormalities of gait and mobility (09/19/20) Physical Therapy Treatment Note PT-OP-A Visit Information Start: 03/18/20 17:40 Freq: Status: Active Protocol: Document 09/19/20 09:42 HH (Rec: 09/19/20 11:31 HH [id number]) Out-Patient Physical Therapy Visit Information Visit Information Visit Type Treatment Note Visit Note came in with hiking poles Visit Start Time 09:47 Visit Stop Time 10:30 Total Visit Minutes 43 Visit Number 32 Number of VETERANS SERVICES SPECIALIST Visits 0 PT-OP-B Current Condition Start: 03/18/20 17:40 Freq: Status: Active Protocol: Document 03/18/20 14:30 DCW (Rec: 03/18/20 17:52 DCW [id number]) Current Condition History of Current Condition Onset Date Eight weeks Current Complaints weakness, gait difficulty, LBP , decreased activity tolerance History of Current Condition Pt is a 69 year old male presenting eight weeks s/p L4- 5 microdiscectomy. Pt reports he has been experiencing low back pain for years, but about 5 months ago, the pain began to rapidly accelerate, and he was found to have ruptured his L4-5 disc. Unfortunately, due to Covid-19 shutdowns, he was unable to get in to have anything done with it, until he finally underwent a microdiscectomy eight weeks ago. Pt reports that prior to the surgery, he was barely moving around, and feels like he has lost a lot of strength and mobility. Pt reports that he had been experiencing weakness and radicular pain down his left leg prior to surgery, however that has improved, and he now has significant right-sided leg weakness. Pt reports he did not use any assistive device prior to his disc rupture, but has pretty much been using a 4WW ever since. Pt is beginning to notice shoulder pain because he is bearing so much weight through his upper extremities. Reports he currently gets fatigued just walking across the room. Treatment Goals Patient/Caregiver Goals I really want to regain strength in my right leg. PT-OP-C Subjective Start: 03/18/20 17:40 Freq: Status: Active Protocol: Document 09/19/20 09:42 HH (Rec: 09/19/20 11:31 HH [id number]) OP-PT Subjective Patient Comments Patient Comments Im doing a little better so i can use the poles. Patient Reported Progress Improving PT-OP-E Functional Tests Start: 03/18/20 17:40 Freq: Status: Active Protocol: Document 06/27/20 14:11 HH (Rec: 06/27/20 14:13 HH [id number]) Functional Tests 6 Minute Walk Test Distance 816 Device Used hiking sticks Comments pt took a rest break at 1:55 remaining Other Single leg stance Name of Test pt cannot complete 360 turns Name of Test 4 second each direction Comment limping noted PT-OP-F Manual Assessment Start: 03/18/20 17:40 Freq: Status: Active Protocol: Document 03/18/20 14:30 DCW (Rec: 03/19/20 09:44 DCW [id number]) Manual Assessments Soft Tissue Assessment Soft Tissue Mobility Assessment Hypertonia and tenderness to palpation 2/4: Pain with wincing along bilateral piriformis, bilateral hamstring, bilateral psoas. Joint Mobility Assessment Joint Mobility Assessment Minimal mobility through lumbar spine, majority of flexion movement comes from hips. PT-OP-G Mobility & Gait Start: 03/18/20 17:40 Freq: Status: Active Protocol: Document 03/18/20 14:30 DCW (Rec: 03/19/20 09:44 DCW [id number]) OP Gait Assessment Gait Gait Assistance Required: Standby Assistance Distance (Feet) 178 Able to Maintain Weight Bearing Status Yes During Gait Assistive Devices Assistive Device Gait Belt,4 Wheeled Walker Orthotic/Prosthetic Devices or Brace: No Gait Deviations General Gait Pattern Antalgic,Ataxic,Decreased Stride Length,Decreased Feet Clearance,Flexed Trunk,Wide Based Gait Factors Limiting Gait Function Factors Limiting Gait Function Decreased Activity Tolerance, Decreased Strength,Limited Range of Motion,Pain PT-OP-K Range of Motion Start: 03/18/20 17:40 Freq: Status: Active Protocol: Document 03/18/20 14:30 DCW (Rec: 03/19/20 09:44 DCW [id number]) Lumbar Spine Range of Motion Lumbar Spine Active Degrees Testing Position Standing Flexion 20 Extension 10 ROM Limitations Soft Tissue Tightness,Bony Restriction,Muscle Weakness, Muscle Tone,Pain Comments When attempting to stand upright, pt is still flexed forward 10?, and then despite appearing to have good forward flexion, his lumbar spine only flexes to 20?, and the remainder of the movement comes from his hip. PT-OP-M Strength Start: 03/18/20 17:40 Freq: Status: Active Protocol: Document 03/18/20 14:30 DCW (Rec: 03/19/20 17:21 DCW [id number]) Hip Strength Hip Manual Muscle Testing Right Flexion (L2) 3+ Fair+ Abduction 4 Good Adduction 4 Good Left Flexion (L2) 4+ Good+ Abduction 4+ Good+ Adduction 4+ Good+ Knee Strength Knee Manual Muscle Testing Right Flexion (S2) 4+ Good+ Extension (L3) 4+ Good+ Left Flexion (S2) 4+ Good+ Extension (L3) 4+ Good+ Ankle/Foot Strength Ankle and Foot Manual Muscle Testing Right Dorsiflexion (L4) 3+ Fair+ Plantarflexion (S1) 4 Good Left Dorsiflexion (L4) 4+ Good+ Plantarflexion (S1) 4+ Good+ PT-OP-Q Treatments Start: 03/18/20 17:40 Freq: Status: Active Protocol: Document 09/19/20 09:42 HH (Rec: 09/19/20 11:31 HH [id number]) Gym Equipment Shuttle Recovery B squat Resistance 75# to 100# Shuttle Recovery Platform Stable Reps/Time 12 x3 Therapeutic Exercises Supine Exercises piriformis stretch Supine Exercise Name manual Side bilateral Reps/Minutes 60 x2 Comments no pain noted HS stretch Side bilateral Reps/Minutes 60 x2 Comments manual, no pain ab curl Supine Exercise Name lumbar flexion stretch, PT assisted Reps/Minutes 10 sec hold x5 Comments no discomofrt noted Sitting Exercises seated reach Sitting Exercise Name to midshin today Reps/Minutes 5 x 4 sets Comments improved stiffness today seated reaching Equipment Used red therapy ball Reps/Minutes 8 x2 pelvic tilt Equipment Used on red therapy ball Standing Exercises standing hip extension Side bilateral Reps/Minutes 8 x2 Comments decreased active hip extension noted. squat Standing Exercise Name mini squat Side bilateral Equipment Used with B support Reps/Minutes 10 x2 Gait Training Gait Activity ground level Device Used 4WW Level of Assistance CGA Surface ground level Distance/Duration 200ft Comments pt has increased flexed trunk noted d/t pain PT-OP-R Modalities Start: 03/18/20 17:40 Freq: Status: Active Protocol: Document 08/27/20 08:55 SP (Rec: 08/27/20 11:12 SP [id number]) Hot Pack/Cold Pack Treatment MHP LS Location B LS Patient Position Prone Treatment Duration (minutes) 10 Patient Tolerance Good Comments decrease LBP PT-OP-T Assessment and Plan Start: 03/18/20 17:40 Freq: Status: Active Protocol: Document 09/19/20 09:42 HH (Rec: 09/19/20 11:31 HH [id number]) Physical Therapy Assessment Goals stair climb Impairment pt needs B support for stair climb Short Term Goal (STG) 09/16 pt was able to toe tap on stairs w/o support for the past month but unable currently d/t recent flare up Warehouse Driver Goal (LTG) pt will show improve single leg strength so he will be able to complete stair climb ( 3-5 steps) with a step to pattern without support. LTG Duration 8 weeks SL stance Impairment Pt is unable to complete SLS Short Term Goal (STG) 09/16/20 pt previously was able to hold up to 3 s but unable since this recent flare up pt will be able to complete SLS for 5s or more STG Duration 07/30/20 Residential Goal (LTG) pt will be able to complete SLS for 10s or more in order for him to amb / turn without excessive lateral weight shift . LTG Duration 8 weeks amb Impairment pt currently amb with 4WW at all times Short Term Goal (STG) 09/16/20 pt has been able to not use 4WW, but just w/o AD or hiking poles for mobility for the past 2 months. However , he started using 4WW d/t recent flare up pt will be able to amb without 4WW for household distance. STG Duration 6 weeks Warehouse Driver Goal (LTG) 06/27 goal met pt will be able to amb without 4WW for community distance LTG Duration 12 weeks Four Impairment Significant limitations in lumbar ROM (10?-20?) Short Term Goal (STG) 05/20 pt is able to complete active trunk flexion and extension with mild discomfort. Cont to have difficulty with isolated lumbar flexion. Residential Goal (LTG) 06/27 goal met pt is able to complete floor touch with full lumbar flexion LTG Duration 05/20/20 Three Impairment Pt demonstrates right foot drop during gait Short Term Goal (STG) 05/20 goal met Pt stated he doesnt have R foot drop at this point and strength is at 4/5, R hip 4- to 4/5. Warehouse Driver Goal (LTG) 09/16/20 pt regain full ROM and strength at R ankle DF/PF LTG Duration 06/30/20 Two Impairment Pt ambulates 332' (1.43 ft/sec ) using a FWW during a Two Minute Walk Test Short Term Goal (STG) 06/27/20 Pt is able to complete 816' in 6 MWT with hiking poles. Pt took 1 break a between. Pt will be able to amb with LRAD to complete 6 MWT for 900 ft. STG Duration 07/30/20 Residential Goal (LTG) 12 weeks Pt to complete a six minute walk test without AD for 1000 ft. LTG Duration 8 weeks One Impairment Pt does not have an appropriate home exercise program Short Term Goal (STG) 05/20 cont in progress pt stated that he is not that compliant with HEP but HEP did help him Pt to be independent and compliant with an appropriate HEP STG Duration 06/19 Assessment Summary Assessment Pt is frustrated d/t his set back since late July. Pt believes his set back was caused by laying in prone position. Will cont start with gentle lumbar ROM and trunk stabilization ex. Physical Therapy Plan Frequency and Duration Frequency of Treatment 2x/Week Duration of Treatment 12 weeks Plan of Care Start Date 09/16/20 Plan of Care End Date 12/15/20 Next Visit Focus/Plan Next Note Type Progress Note Next Visit Plan stretch, hip extension, SL stability toe tap, step up and kymberly ttrianing
--- NOTE | 2020-09-23 10:33 | PT.OTN ---
Current Diagnoses Foot drop, right foot (09/23/20) Stiffness of unspecified joint, not elsewhere classified (09/23/20) Stiffness of right hip, not elsewhere classified (09/23/20) Stiffness of left hip, not elsewhere classified (09/23/20) Radiculopathy, lumbar region (09/23/20) Muscle weakness (generalized) (09/23/20) Other abnormalities of gait and mobility (09/23/20) Physical Therapy Treatment Note PT-OP-A Visit Information Start: 03/18/20 17:40 Freq: Status: Active Protocol: Document 09/23/20 09:43 HH (Rec: 09/23/20 10:33 HH [id number]) Out-Patient Physical Therapy Visit Information Visit Information Visit Type Treatment Note Visit Note came in with hiking poles Visit Start Time 09:47 Visit Stop Time 10:30 Total Visit Minutes 43 Visit Number 32 Number of PREANALYTICS TEAM LEAD Visits 0 PT-OP-B Current Condition Start: 03/18/20 17:40 Freq: Status: Active Protocol: Document 03/18/20 14:30 DCW (Rec: 03/18/20 17:52 DCW [id number]) Current Condition History of Current Condition Onset Date Eight weeks Current Complaints weakness, gait difficulty, LBP , decreased activity tolerance History of Current Condition Pt is a 69 year old male presenting eight weeks s/p L4- 5 microdiscectomy. Pt reports he has been experiencing low back pain for years, but about 5 months ago, the pain began to rapidly accelerate, and he was found to have ruptured his L4-5 disc. Unfortunately, due to Covid-19 shutdowns, he was unable to get in to have anything done with it, until he finally underwent a microdiscectomy eight weeks ago. Pt reports that prior to the surgery, he was barely moving around, and feels like he has lost a lot of strength and mobility. Pt reports that he had been experiencing weakness and radicular pain down his left leg prior to surgery, however that has improved, and he now has significant right-sided leg weakness. Pt reports he did not use any assistive device prior to his disc rupture, but has pretty much been using a 4WW ever since. Pt is beginning to notice shoulder pain because he is bearing so much weight through his upper extremities. Reports he currently gets fatigued just walking across the room. Treatment Goals Patient/Caregiver Goals I really want to regain strength in my right leg. PT-OP-C Subjective Start: 03/18/20 17:40 Freq: Status: Active Protocol: Document 09/19/20 09:42 HH (Rec: 09/19/20 11:31 HH [id number]) OP-PT Subjective Patient Comments Patient Comments Im doing a little better so i can use the poles. Patient Reported Progress Improving PT-OP-E Functional Tests Start: 03/18/20 17:40 Freq: Status: Active Protocol: Document 06/27/20 14:11 HH (Rec: 06/27/20 14:13 HH [id number]) Functional Tests 6 Minute Walk Test Distance 816 Device Used hiking sticks Comments pt took a rest break at 1:55 remaining Other Single leg stance Name of Test pt cannot complete 360 turns Name of Test 4 second each direction Comment limping noted PT-OP-F Manual Assessment Start: 03/18/20 17:40 Freq: Status: Active Protocol: Document 03/18/20 14:30 DCW (Rec: 03/19/20 09:44 DCW [id number]) Manual Assessments Soft Tissue Assessment Soft Tissue Mobility Assessment Hypertonia and tenderness to palpation 2/4: Pain with wincing along bilateral piriformis, bilateral hamstring, bilateral psoas. Joint Mobility Assessment Joint Mobility Assessment Minimal mobility through lumbar spine, majority of flexion movement comes from hips. PT-OP-G Mobility & Gait Start: 03/18/20 17:40 Freq: Status: Active Protocol: Document 03/18/20 14:30 DCW (Rec: 03/19/20 09:44 DCW [id number]) OP Gait Assessment Gait Gait Assistance Required: Standby Assistance Distance (Feet) 178 Able to Maintain Weight Bearing Status Yes During Gait Assistive Devices Assistive Device Gait Belt,4 Wheeled Walker Orthotic/Prosthetic Devices or Brace: No Gait Deviations General Gait Pattern Antalgic,Ataxic,Decreased Stride Length,Decreased Feet Clearance,Flexed Trunk,Wide Based Gait Factors Limiting Gait Function Factors Limiting Gait Function Decreased Activity Tolerance, Decreased Strength,Limited Range of Motion,Pain PT-OP-K Range of Motion Start: 03/18/20 17:40 Freq: Status: Active Protocol: Document 03/18/20 14:30 DCW (Rec: 03/19/20 09:44 DCW [id number]) Lumbar Spine Range of Motion Lumbar Spine Active Degrees Testing Position Standing Flexion 20 Extension 10 ROM Limitations Soft Tissue Tightness,Bony Restriction,Muscle Weakness, Muscle Tone,Pain Comments When attempting to stand upright, pt is still flexed forward 10?, and then despite appearing to have good forward flexion, his lumbar spine only flexes to 20?, and the remainder of the movement comes from his hip. PT-OP-M Strength Start: 03/18/20 17:40 Freq: Status: Active Protocol: Document 03/18/20 14:30 DCW (Rec: 03/19/20 17:21 DCW [id number]) Hip Strength Hip Manual Muscle Testing Right Flexion (L2) 3+ Fair+ Abduction 4 Good Adduction 4 Good Left Flexion (L2) 4+ Good+ Abduction 4+ Good+ Adduction 4+ Good+ Knee Strength Knee Manual Muscle Testing Right Flexion (S2) 4+ Good+ Extension (L3) 4+ Good+ Left Flexion (S2) 4+ Good+ Extension (L3) 4+ Good+ Ankle/Foot Strength Ankle and Foot Manual Muscle Testing Right Dorsiflexion (L4) 3+ Fair+ Plantarflexion (S1) 4 Good Left Dorsiflexion (L4) 4+ Good+ Plantarflexion (S1) 4+ Good+ PT-OP-Q Treatments Start: 03/18/20 17:40 Freq: Status: Active Protocol: Document 09/23/20 09:43 HH (Rec: 09/23/20 10:33 HH [id number]) Gym Equipment Shuttle Recovery B squat Resistance #100 Shuttle Recovery Platform Stable Reps/Time 12 x3 Therapeutic Exercises Supine Exercises knee to chest Reps/Minutes 10 sec hold x5 Comments for HEP bridging Reps/Minutes 5 sec hold x5 x2 Comments for HEP LTR Equipment Used red therapy ball ab curl Supine Exercise Name lumbar flexion stretch, PT assisted Reps/Minutes 10 sec hold x5 Comments no discomofrt noted, Sitting Exercises seated reach Sitting Exercise Name to midshin today Reps/Minutes 5 x 4 sets Comments improved stiffness today Manual Therapy Treatment Soft Tissue Mobilization QL Mobilization Type Sustained Pressure,Trigger Point Release Intensity/Depth Moderate Body Position Sidelying Comments significant tenderness to pressure noted. PT-OP-R Modalities Start: 03/18/20 17:40 Freq: Status: Active Protocol: Document 08/27/20 08:55 SP (Rec: 08/27/20 11:12 SP [id number]) Hot Pack/Cold Pack Treatment MHP LS Location B LS Patient Position Prone Treatment Duration (minutes) 10 Patient Tolerance Good Comments decrease LBP PT-OP-T Assessment and Plan Start: 03/18/20 17:40 Freq: Status: Active Protocol: Document 09/23/20 09:43 HH (Rec: 09/23/20 10:33 HH [id number]) Physical Therapy Assessment Goals stair climb Impairment pt needs B support for stair climb Short Term Goal (STG) 09/16 pt was able to toe tap on stairs w/o support for the past month but unable currently d/t recent flare up Senior Asic Engineer Goal (LTG) pt will show improve single leg strength so he will be able to complete stair climb ( 3-5 steps) with a step to pattern without support. LTG Duration 8 weeks SL stance Impairment Pt is unable to complete SLS Short Term Goal (STG) 09/16/20 pt previously was able to hold up to 3 s but unable since this recent flare up pt will be able to complete SLS for 5s or more STG Duration 07/30/20 Senior Asic Engineer Goal (LTG) pt will be able to complete SLS for 10s or more in order for him to amb / turn without excessive lateral weight shift . LTG Duration 8 weeks amb Impairment pt currently amb with 4WW at all times Short Term Goal (STG) 09/16/20 pt has been able to not use 4WW, but just w/o AD or hiking poles for mobility for the past 2 months. However , he started using 4WW d/t recent flare up pt will be able to amb without 4WW for household distance. STG Duration 6 weeks Longterm Goal (LTG) 06/27 goal met pt will be able to amb without 4WW for community distance LTG Duration 12 weeks Four Impairment Significant limitations in lumbar ROM (10?-20?) Short Term Goal (STG) 05/20 pt is able to complete active trunk flexion and extension with mild discomfort. Cont to have difficulty with isolated lumbar flexion. Longterm Goal (LTG) 06/27 goal met pt is able to complete floor touch with full lumbar flexion LTG Duration 05/20/20 Three Impairment Pt demonstrates right foot drop during gait Short Term Goal (STG) 05/20 goal met Pt stated he doesnt have R foot drop at this point and strength is at 4/5, R hip 4- to 4/5. Senior Asic Engineer Goal (LTG) 09/16/20 pt regain full ROM and strength at R ankle DF/PF LTG Duration 06/30/20 Two Impairment Pt ambulates 332' (1.43 ft/sec ) using a FWW during a Two Minute Walk Test Short Term Goal (STG) 06/27/20 Pt is able to complete 816' in 6 MWT with hiking poles. Pt took 1 break a between. Pt will be able to amb with LRAD to complete 6 MWT for 900 ft. STG Duration 07/30/20 Senior Asic Engineer Goal (LTG) 12 weeks Pt to complete a six minute walk test without AD for 1000 ft. LTG Duration 8 weeks One Impairment Pt does not have an appropriate home exercise program Short Term Goal (STG) 05/20 cont in progress pt stated that he is not that compliant with HEP but HEP did help him Pt to be independent and compliant with an appropriate HEP STG Duration 06/19 Assessment Summary Assessment Pt did well today after manual therapy on R QL followed by lumbar ROM therex. Pt is going to have massage therapy tomorrow will f/u after that Physical Therapy Plan Frequency and Duration Frequency of Treatment 2x/Week Duration of Treatment 12 weeks Plan of Care Start Date 09/16/20 Plan of Care End Date 12/15/20 Next Visit Focus/Plan Next Note Type Progress Note Next Visit Plan stretch, hip extension, SL stability toe tap, step up and kymberly ttrianing
--- NOTE | 2020-09-26 10:32 | PT.OTN ---
Current Diagnoses Foot drop, right foot (09/26/20) Stiffness of unspecified joint, not elsewhere classified (09/26/20) Stiffness of right hip, not elsewhere classified (09/26/20) Stiffness of left hip, not elsewhere classified (09/26/20) Radiculopathy, lumbar region (09/26/20) Muscle weakness (generalized) (09/26/20) Other abnormalities of gait and mobility (09/26/20) Physical Therapy Treatment Note PT-OP-A Visit Information Start: 03/18/20 17:40 Freq: Status: Active Protocol: Document 09/26/20 09:42 HH (Rec: 09/26/20 10:32 HH [id number]) Out-Patient Physical Therapy Visit Information Visit Information Visit Type Treatment Note Visit Note came in with hiking poles Visit Start Time 09:46 Visit Stop Time 10:30 Total Visit Minutes 44 Visit Number 33 Number of FOOD AND BEVERAGE CASHIER Visits 0 PT-OP-B Current Condition Start: 03/18/20 17:40 Freq: Status: Active Protocol: Document 03/18/20 14:30 DCW (Rec: 03/18/20 17:52 DCW [id number]) Current Condition History of Current Condition Onset Date Eight weeks Current Complaints weakness, gait difficulty, LBP , decreased activity tolerance History of Current Condition Pt is a 69 year old male presenting eight weeks s/p L4- 5 microdiscectomy. Pt reports he has been experiencing low back pain for years, but about 5 months ago, the pain began to rapidly accelerate, and he was found to have ruptured his L4-5 disc. Unfortunately, due to Covid-19 shutdowns, he was unable to get in to have anything done with it, until he finally underwent a microdiscectomy eight weeks ago. Pt reports that prior to the surgery, he was barely moving around, and feels like he has lost a lot of strength and mobility. Pt reports that he had been experiencing weakness and radicular pain down his left leg prior to surgery, however that has improved, and he now has significant right-sided leg weakness. Pt reports he did not use any assistive device prior to his disc rupture, but has pretty much been using a 4WW ever since. Pt is beginning to notice shoulder pain because he is bearing so much weight through his upper extremities. Reports he currently gets fatigued just walking across the room. Treatment Goals Patient/Caregiver Goals I really want to regain strength in my right leg. PT-OP-C Subjective Start: 03/18/20 17:40 Freq: Status: Active Protocol: Document 09/26/20 09:42 HH (Rec: 09/26/20 10:32 HH [id number]) OP-PT Subjective Patient Comments Patient Comments jasper been feeling for the past few days which is a good thing PT-OP-E Functional Tests Start: 03/18/20 17:40 Freq: Status: Active Protocol: Document 06/27/20 14:11 HH (Rec: 06/27/20 14:13 HH [id number]) Functional Tests 6 Minute Walk Test Distance 816 Device Used hiking sticks Comments pt took a rest break at 1:55 remaining Other Single leg stance Name of Test pt cannot complete 360 turns Name of Test 4 second each direction Comment limping noted PT-OP-F Manual Assessment Start: 03/18/20 17:40 Freq: Status: Active Protocol: Document 03/18/20 14:30 DCW (Rec: 03/19/20 09:44 DCW [id number]) Manual Assessments Soft Tissue Assessment Soft Tissue Mobility Assessment Hypertonia and tenderness to palpation 2/4: Pain with wincing along bilateral piriformis, bilateral hamstring, bilateral psoas. Joint Mobility Assessment Joint Mobility Assessment Minimal mobility through lumbar spine, majority of flexion movement comes from hips. PT-OP-G Mobility & Gait Start: 03/18/20 17:40 Freq: Status: Active Protocol: Document 03/18/20 14:30 DCW (Rec: 03/19/20 09:44 DCW [id number]) OP Gait Assessment Gait Gait Assistance Required: Standby Assistance Distance (Feet) 178 Able to Maintain Weight Bearing Status Yes During Gait Assistive Devices Assistive Device Gait Belt,4 Wheeled Walker Orthotic/Prosthetic Devices or Brace: No Gait Deviations General Gait Pattern Antalgic,Ataxic,Decreased Stride Length,Decreased Feet Clearance,Flexed Trunk,Wide Based Gait Factors Limiting Gait Function Factors Limiting Gait Function Decreased Activity Tolerance, Decreased Strength,Limited Range of Motion,Pain PT-OP-K Range of Motion Start: 03/18/20 17:40 Freq: Status: Active Protocol: Document 03/18/20 14:30 DCW (Rec: 03/19/20 09:44 DCW [id number]) Lumbar Spine Range of Motion Lumbar Spine Active Degrees Testing Position Standing Flexion 20 Extension 10 ROM Limitations Soft Tissue Tightness,Bony Restriction,Muscle Weakness, Muscle Tone,Pain Comments When attempting to stand upright, pt is still flexed forward 10?, and then despite appearing to have good forward flexion, his lumbar spine only flexes to 20?, and the remainder of the movement comes from his hip. PT-OP-M Strength Start: 03/18/20 17:40 Freq: Status: Active Protocol: Document 03/18/20 14:30 DCW (Rec: 03/19/20 17:21 DCW [id number]) Hip Strength Hip Manual Muscle Testing Right Flexion (L2) 3+ Fair+ Abduction 4 Good Adduction 4 Good Left Flexion (L2) 4+ Good+ Abduction 4+ Good+ Adduction 4+ Good+ Knee Strength Knee Manual Muscle Testing Right Flexion (S2) 4+ Good+ Extension (L3) 4+ Good+ Left Flexion (S2) 4+ Good+ Extension (L3) 4+ Good+ Ankle/Foot Strength Ankle and Foot Manual Muscle Testing Right Dorsiflexion (L4) 3+ Fair+ Plantarflexion (S1) 4 Good Left Dorsiflexion (L4) 4+ Good+ Plantarflexion (S1) 4+ Good+ PT-OP-Q Treatments Start: 03/18/20 17:40 Freq: Status: Active Protocol: Document 09/26/20 09:42 HH (Rec: 09/26/20 10:32 HH [id number]) Therapeutic Exercises Supine Exercises knee to chest Reps/Minutes 10 sec hold x5 Comments for HEP bridging Reps/Minutes 5 sec hold x5 x2 Comments for HEP LTR Equipment Used red therapy ball ab curl Supine Exercise Name lumbar flexion stretch, PT assisted Reps/Minutes 10 sec hold x5 Comments no discomofrt noted, Sitting Exercises seated reach Sitting Exercise Name to midshin today Reps/Minutes 5 x 4 sets Comments improved stiffness today Standing Exercises squat Standing Exercise Name mini squat Side bilateral Equipment Used with B support Reps/Minutes 10 x2 Gait Training Gait Activity ground level Device Used Contractually sticks Level of Assistance CGA Surface ground level Distance/Duration 200ft x2 Comments pain during swing phase of LE Manual Therapy Treatment Soft Tissue Mobilization QL Mobilization Type Sustained Pressure,Trigger Point Release Intensity/Depth Deep Body Position Sidelying Comments improved tenderness to pressure noted. PT-OP-R Modalities Start: 03/18/20 17:40 Freq: Status: Active Protocol: Document 08/27/20 08:55 SP (Rec: 08/27/20 11:12 SP [id number]) Hot Pack/Cold Pack Treatment MHP LS Location B LS Patient Position Prone Treatment Duration (minutes) 10 Patient Tolerance Good Comments decrease LBP PT-OP-T Assessment and Plan Start: 03/18/20 17:40 Freq: Status: Active Protocol: Document 09/26/20 09:42 HH (Rec: 09/26/20 10:32 HH [id number]) Physical Therapy Assessment Goals stair climb Impairment pt needs B support for stair climb Short Term Goal (STG) 09/16 pt was able to toe tap on stairs w/o support for the past month but unable currently d/t recent flare up Railroad Car Cleaner Goal (LTG) pt will show improve single leg strength so he will be able to complete stair climb ( 3-5 steps) with a step to pattern without support. LTG Duration 8 weeks SL stance Impairment Pt is unable to complete SLS Short Term Goal (STG) 09/16/20 pt previously was able to hold up to 3 s but unable since this recent flare up pt will be able to complete SLS for 5s or more STG Duration 07/30/20 Care Home Goal (LTG) pt will be able to complete SLS for 10s or more in order for him to amb / turn without excessive lateral weight shift . LTG Duration 8 weeks amb Impairment pt currently amb with 4WW at all times Short Term Goal (STG) 09/16/20 pt has been able to not use 4WW, but just w/o AD or hiking poles for mobility for the past 2 months. However , he started using 4WW d/t recent flare up pt will be able to amb without 4WW for household distance. STG Duration 6 weeks Railroad Car Cleaner Goal (LTG) 06/27 goal met pt will be able to amb without 4WW for community distance LTG Duration 12 weeks Four Impairment Significant limitations in lumbar ROM (10?-20?) Short Term Goal (STG) 05/20 pt is able to complete active trunk flexion and extension with mild discomfort. Cont to have difficulty with isolated lumbar flexion. Care Home Goal (LTG) 10/29 goal met pt is able to complete floor touch with full lumbar flexion LTG Duration 05/20/20 Three Impairment Pt demonstrates right foot drop during gait Short Term Goal (STG) 05/20 goal met Pt stated he doesnt have R foot drop at this point and strength is at 4/5, R hip 4- to 4/5. Railroad Car Cleaner Goal (LTG) 09/16/20 pt regain full ROM and strength at R ankle DF/PF LTG Duration 06/30/20 Two Impairment Pt ambulates 332' (1.43 ft/sec ) using a FWW during a Two Minute Walk Test Short Term Goal (STG) 06/27/20 Pt is able to complete 816' in 6 MWT with hiking poles. Pt took 1 break a between. Pt will be able to amb with LRAD to complete 6 MWT for 900 ft. STG Duration 07/30/20 Railroad Car Cleaner Goal (LTG) 12 weeks Pt to complete a six minute walk test without AD for 1000 ft. LTG Duration 8 weeks One Impairment Pt does not have an appropriate home exercise program Short Term Goal (STG) 05/20 cont in progress pt stated that he is not that compliant with HEP but HEP did help him Pt to be independent and compliant with an appropriate HEP STG Duration 06/19 Assessment Summary Assessment Pt has improved since last week with improved pain and reduced tenderness at R QL. Pt does c/o back pain during swing phase of LE which indicates poor ttrunk stability Physical Therapy Plan Frequency and Duration Frequency of Treatment 2x/Week Duration of Treatment 12 weeks Plan of Care Start Date 09/16/20 Plan of Care End Date 12/15/20 Next Visit Focus/Plan Next Note Type Progress Note Next Visit Plan stretch, hip extension, SL stability toe tap, step up and kymberly ttrianing
--- NOTE | 2020-09-30 10:31 | PT.OTN ---
Current Diagnoses Foot drop, right foot (09/30/20) Stiffness of unspecified joint, not elsewhere classified (09/30/20) Stiffness of right hip, not elsewhere classified (09/30/20) Stiffness of left hip, not elsewhere classified (09/30/20) Radiculopathy, lumbar region (09/30/20) Muscle weakness (generalized) (09/30/20) Other abnormalities of gait and mobility (09/30/20) Physical Therapy Treatment Note PT-OP-A Visit Information Start: 03/18/20 17:40 Freq: Status: Active Protocol: Document 09/30/20 09:45 HH (Rec: 09/30/20 10:31 HH [id number]) Out-Patient Physical Therapy Visit Information Visit Information Visit Type Treatment Note Visit Note came in with hiking poles Visit Start Time 09:47 Visit Stop Time 10:30 Total Visit Minutes 43 Visit Number 34 Number of ASSISTANT NURSE MANAGER Visits 0 PT-OP-B Current Condition Start: 03/18/20 17:40 Freq: Status: Active Protocol: Document 03/18/20 14:30 DCW (Rec: 03/18/20 17:52 DCW [id number]) Current Condition History of Current Condition Onset Date Eight weeks Current Complaints weakness, gait difficulty, LBP , decreased activity tolerance History of Current Condition Pt is a 69 year old male presenting eight weeks s/p L4- 5 microdiscectomy. Pt reports he has been experiencing low back pain for years, but about 5 months ago, the pain began to rapidly accelerate, and he was found to have ruptured his L4-5 disc. Unfortunately, due to Covid-19 shutdowns, he was unable to get in to have anything done with it, until he finally underwent a microdiscectomy eight weeks ago. Pt reports that prior to the surgery, he was barely moving around, and feels like he has lost a lot of strength and mobility. Pt reports that he had been experiencing weakness and radicular pain down his left leg prior to surgery, however that has improved, and he now has significant right-sided leg weakness. Pt reports he did not use any assistive device prior to his disc rupture, but has pretty much been using a 4WW ever since. Pt is beginning to notice shoulder pain because he is bearing so much weight through his upper extremities. Reports he currently gets fatigued just walking across the room. Treatment Goals Patient/Caregiver Goals I really want to regain strength in my right leg. PT-OP-C Subjective Start: 03/18/20 17:40 Freq: Status: Active Protocol: Document 09/30/20 09:45 HH (Rec: 09/30/20 10:31 HH [id number]) OP-PT Subjective Patient Comments Patient Comments Im doing pretty good and not too bad. Patient Reported Progress Improving PT-OP-E Functional Tests Start: 03/18/20 17:40 Freq: Status: Active Protocol: Document 06/27/20 14:11 HH (Rec: 06/27/20 14:13 HH [id number]) Functional Tests 6 Minute Walk Test Distance 816 Device Used hiking sticks Comments pt took a rest break at 1:55 remaining Other Single leg stance Name of Test pt cannot complete 360 turns Name of Test 4 second each direction Comment limping noted PT-OP-F Manual Assessment Start: 03/18/20 17:40 Freq: Status: Active Protocol: Document 03/18/20 14:30 DCW (Rec: 03/19/20 09:44 DCW [id number]) Manual Assessments Soft Tissue Assessment Soft Tissue Mobility Assessment Hypertonia and tenderness to palpation 2/4: Pain with wincing along bilateral piriformis, bilateral hamstring, bilateral psoas. Joint Mobility Assessment Joint Mobility Assessment Minimal mobility through lumbar spine, majority of flexion movement comes from hips. PT-OP-G Mobility & Gait Start: 03/18/20 17:40 Freq: Status: Active Protocol: Document 03/18/20 14:30 DCW (Rec: 03/19/20 09:44 DCW [id number]) OP Gait Assessment Gait Gait Assistance Required: Standby Assistance Distance (Feet) 178 Able to Maintain Weight Bearing Status Yes During Gait Assistive Devices Assistive Device Gait Belt,4 Wheeled Walker Orthotic/Prosthetic Devices or Brace: No Gait Deviations General Gait Pattern Antalgic,Ataxic,Decreased Stride Length,Decreased Feet Clearance,Flexed Trunk,Wide Based Gait Factors Limiting Gait Function Factors Limiting Gait Function Decreased Activity Tolerance, Decreased Strength,Limited Range of Motion,Pain PT-OP-K Range of Motion Start: 03/18/20 17:40 Freq: Status: Active Protocol: Document 03/18/20 14:30 DCW (Rec: 03/19/20 09:44 DCW [id number]) Lumbar Spine Range of Motion Lumbar Spine Active Degrees Testing Position Standing Flexion 20 Extension 10 ROM Limitations Soft Tissue Tightness,Bony Restriction,Muscle Weakness, Muscle Tone,Pain Comments When attempting to stand upright, pt is still flexed forward 10?, and then despite appearing to have good forward flexion, his lumbar spine only flexes to 20?, and the remainder of the movement comes from his hip. PT-OP-M Strength Start: 03/18/20 17:40 Freq: Status: Active Protocol: Document 03/18/20 14:30 DCW (Rec: 03/19/20 17:21 DCW [id number]) Hip Strength Hip Manual Muscle Testing Right Flexion (L2) 3+ Fair+ Abduction 4 Good Adduction 4 Good Left Flexion (L2) 4+ Good+ Abduction 4+ Good+ Adduction 4+ Good+ Knee Strength Knee Manual Muscle Testing Right Flexion (S2) 4+ Good+ Extension (L3) 4+ Good+ Left Flexion (S2) 4+ Good+ Extension (L3) 4+ Good+ Ankle/Foot Strength Ankle and Foot Manual Muscle Testing Right Dorsiflexion (L4) 3+ Fair+ Plantarflexion (S1) 4 Good Left Dorsiflexion (L4) 4+ Good+ Plantarflexion (S1) 4+ Good+ PT-OP-Q Treatments Start: 03/18/20 17:40 Freq: Status: Active Protocol: Document 09/30/20 09:45 HH (Rec: 09/30/20 10:31 HH [id number]) Therapeutic Exercises Supine Exercises knee to chest Reps/Minutes 10 sec hold x5 Comments for HEP piriformis stretch Side bilateral Reps/Minutes 10 sec hold x5 HS stretch Side bilateral Reps/Minutes 10 sec hold x 5 bridging Reps/Minutes 5 sec hold x5 x2 Comments for HEP Sitting Exercises seated reaching Sitting Exercise Name able to reach floor Side bilateral Reps/Minutes 10 x2 Standing Exercises standing hip extension Standing Exercise Name prone on elbows on table with bolster Side bilateral Reps/Minutes 5 x 2 Gait Training Gait Activity ground level Device Used [employer] sticks Level of Assistance CGA Surface ground level Distance/Duration 200ft x2 Comments less pain noted during swing phase of LE Manual Therapy Treatment Soft Tissue Mobilization QL Mobilization Type Sustained Pressure,Trigger Point Release Intensity/Depth Deep Body Position Sidelying Comments improved tenderness to pressure noted. PT-OP-R Modalities Start: 03/18/20 17:40 Freq: Status: Active Protocol: Document 08/27/20 08:55 SP (Rec: 08/27/20 11:12 SP [id number]) Hot Pack/Cold Pack Treatment MHP LS Location B LS Patient Position Prone Treatment Duration (minutes) 10 Patient Tolerance Good Comments decrease LBP PT-OP-T Assessment and Plan Start: 03/18/20 17:40 Freq: Status: Active Protocol: Document 09/30/20 09:45 HH (Rec: 09/30/20 10:31 HH [id number]) Physical Therapy Assessment Goals stair climb Impairment pt needs B support for stair climb Short Term Goal (STG) 09/16 pt was able to toe tap on stairs w/o support for the past month but unable currently d/t recent flare up Concrete Pavement Installer Goal (LTG) pt will show improve single leg strength so he will be able to complete stair climb ( 3-5 steps) with a step to pattern without support. LTG Duration 8 weeks SL stance Impairment Pt is unable to complete SLS Short Term Goal (STG) 09/16/20 pt previously was able to hold up to 3 s but unable since this recent flare up pt will be able to complete SLS for 5s or more STG Duration 07/30/20 Halfway Goal (LTG) pt will be able to complete SLS for 10s or more in order for him to amb / turn without excessive lateral weight shift . LTG Duration 8 weeks amb Impairment pt currently amb with 4WW at all times Short Term Goal (STG) 09/16/20 pt has been able to not use 4WW, but just w/o AD or hiking poles for mobility for the past 2 months. However , he started using 4WW d/t recent flare up pt will be able to amb without 4WW for household distance. STG Duration 6 weeks Concrete Pavement Installer Goal (LTG) 06/27 goal met pt will be able to amb without 4WW for community distance LTG Duration 12 weeks Four Impairment Significant limitations in lumbar ROM (10?-20?) Short Term Goal (STG) 05/20 pt is able to complete active trunk flexion and extension with mild discomfort. Cont to have difficulty with isolated lumbar flexion. Halfway Goal (LTG) 06/27 goal met pt is able to complete floor touch with full lumbar flexion LTG Duration 05/20/20 Three Impairment Pt demonstrates right foot drop during gait Short Term Goal (STG) 05/20 goal met Pt stated he doesnt have R foot drop at this point and strength is at 4/5, R hip 4- to 4/5. Halfway Goal (LTG) 09/16/20 pt regain full ROM and strength at R ankle DF/PF LTG Duration 06/30/20 Two Impairment Pt ambulates 332' (1.43 ft/sec ) using a FWW during a Two Minute Walk Test Short Term Goal (STG) 06/27/20 Pt is able to complete 816' in 6 MWT with hiking poles. Pt took 1 break a between. Pt will be able to amb with LRAD to complete 6 MWT for 900 ft. STG Duration 07/30/20 Halfway Goal (LTG) 12 weeks Pt to complete a six minute walk test without AD for 1000 ft. LTG Duration 8 weeks One Impairment Pt does not have an appropriate home exercise program Short Term Goal (STG) 05/20 cont in progress pt stated that he is not that compliant with HEP but HEP did help him Pt to be independent and compliant with an appropriate HEP STG Duration 06/19 Assessment Summary Assessment Pt cont improves slowly with less pain and improved hip and trunk stabilizers activation. Will cont focus on trunk stabilization and hip strengthening to improve his gait and pain. Physical Therapy Plan Frequency and Duration Frequency of Treatment 2x/Week Duration of Treatment 12 weeks Plan of Care Start Date 09/16/20 Plan of Care End Date 12/15/20 Next Visit Focus/Plan Next Note Type Progress Note Next Visit Plan stretch, hip extension, SL stability toe tap, step up and kymberly ttrianing
--- NOTE | 2020-10-03 10:36 | PT.OTN ---
Current Diagnoses Foot drop, right foot (10/03/20) Stiffness of unspecified joint, not elsewhere classified (10/03/20) Stiffness of right hip, not elsewhere classified (10/03/20) Stiffness of left hip, not elsewhere classified (10/03/20) Radiculopathy, lumbar region (10/03/20) Muscle weakness (generalized) (10/03/20) Other abnormalities of gait and mobility (10/03/20) Physical Therapy Treatment Note PT-OP-A Visit Information Start: 03/18/20 17:40 Freq: Status: Active Protocol: Document 10/03/20 09:50 HH (Rec: 10/03/20 10:36 HH [id number]) Out-Patient Physical Therapy Visit Information Visit Information Visit Type Treatment Note Visit Note came in with hiking poles Visit Start Time 09:46 Visit Stop Time 10:30 Total Visit Minutes 44 Visit Number 35 Number of SENIOR UI UX DEVELOPER Visits 0 PT-OP-B Current Condition Start: 03/18/20 17:40 Freq: Status: Active Protocol: Document 03/18/20 14:30 DCW (Rec: 03/18/20 17:52 DCW [id number]) Current Condition History of Current Condition Onset Date Eight weeks Current Complaints weakness, gait difficulty, LBP , decreased activity tolerance History of Current Condition Pt is a 69 year old male presenting eight weeks s/p L4- 5 microdiscectomy. Pt reports he has been experiencing low back pain for years, but about 5 months ago, the pain began to rapidly accelerate, and he was found to have ruptured his L4-5 disc. Unfortunately, due to Covid-19 shutdowns, he was unable to get in to have anything done with it, until he finally underwent a microdiscectomy eight weeks ago. Pt reports that prior to the surgery, he was barely moving around, and feels like he has lost a lot of strength and mobility. Pt reports that he had been experiencing weakness and radicular pain down his left leg prior to surgery, however that has improved, and he now has significant right-sided leg weakness. Pt reports he did not use any assistive device prior to his disc rupture, but has pretty much been using a 4WW ever since. Pt is beginning to notice shoulder pain because he is bearing so much weight through his upper extremities. Reports he currently gets fatigued just walking across the room. Treatment Goals Patient/Caregiver Goals I really want to regain strength in my right leg. PT-OP-C Subjective Start: 03/18/20 17:40 Freq: Status: Active Protocol: Document 10/03/20 09:50 HH (Rec: 10/03/20 10:36 HH [id number]) OP-PT Subjective Patient Comments Patient Comments Im doing so far so goood. Im getting there Patient Reported Progress Improving PT-OP-E Functional Tests Start: 03/18/20 17:40 Freq: Status: Active Protocol: Document 06/27/20 14:11 HH (Rec: 06/27/20 14:13 HH [id number]) Functional Tests 6 Minute Walk Test Distance 816 Device Used hiking sticks Comments pt took a rest break at 1:55 remaining Other Single leg stance Name of Test pt cannot complete 360 turns Name of Test 4 second each direction Comment limping noted PT-OP-F Manual Assessment Start: 03/18/20 17:40 Freq: Status: Active Protocol: Document 03/18/20 14:30 DCW (Rec: 03/19/20 09:44 DCW [id number]) Manual Assessments Soft Tissue Assessment Soft Tissue Mobility Assessment Hypertonia and tenderness to palpation 2/4: Pain with wincing along bilateral piriformis, bilateral hamstring, bilateral psoas. Joint Mobility Assessment Joint Mobility Assessment Minimal mobility through lumbar spine, majority of flexion movement comes from hips. PT-OP-G Mobility & Gait Start: 03/18/20 17:40 Freq: Status: Active Protocol: Document 03/18/20 14:30 DCW (Rec: 03/19/20 09:44 DCW [id number]) OP Gait Assessment Gait Gait Assistance Required: Standby Assistance Distance (Feet) 178 Able to Maintain Weight Bearing Status Yes During Gait Assistive Devices Assistive Device Gait Belt,4 Wheeled Walker Orthotic/Prosthetic Devices or Brace: No Gait Deviations General Gait Pattern Antalgic,Ataxic,Decreased Stride Length,Decreased Feet Clearance,Flexed Trunk,Wide Based Gait Factors Limiting Gait Function Factors Limiting Gait Function Decreased Activity Tolerance, Decreased Strength,Limited Range of Motion,Pain PT-OP-K Range of Motion Start: 03/18/20 17:40 Freq: Status: Active Protocol: Document 03/18/20 14:30 DCW (Rec: 03/19/20 09:44 DCW [id number]) Lumbar Spine Range of Motion Lumbar Spine Active Degrees Testing Position Standing Flexion 20 Extension 10 ROM Limitations Soft Tissue Tightness,Bony Restriction,Muscle Weakness, Muscle Tone,Pain Comments When attempting to stand upright, pt is still flexed forward 10?, and then despite appearing to have good forward flexion, his lumbar spine only flexes to 20?, and the remainder of the movement comes from his hip. PT-OP-M Strength Start: 03/18/20 17:40 Freq: Status: Active Protocol: Document 03/18/20 14:30 DCW (Rec: 03/19/20 17:21 DCW [id number]) Hip Strength Hip Manual Muscle Testing Right Flexion (L2) 3+ Fair+ Abduction 4 Good Adduction 4 Good Left Flexion (L2) 4+ Good+ Abduction 4+ Good+ Adduction 4+ Good+ Knee Strength Knee Manual Muscle Testing Right Flexion (S2) 4+ Good+ Extension (L3) 4+ Good+ Left Flexion (S2) 4+ Good+ Extension (L3) 4+ Good+ Ankle/Foot Strength Ankle and Foot Manual Muscle Testing Right Dorsiflexion (L4) 3+ Fair+ Plantarflexion (S1) 4 Good Left Dorsiflexion (L4) 4+ Good+ Plantarflexion (S1) 4+ Good+ PT-OP-Q Treatments Start: 03/18/20 17:40 Freq: Status: Active Protocol: Document 10/03/20 09:50 HH (Rec: 10/03/20 10:36 HH [id number]) Therapeutic Exercises Supine Exercises knee to chest Reps/Minutes 10 sec hold x5 Comments for HEP HS stretch Side bilateral Reps/Minutes 10 sec hold x 5 bridging Reps/Minutes 5 sec hold x5 x2 Comments for HEP Sitting Exercises seated reach Sitting Exercise Name floor touch Reps/Minutes 5 x 4 sets Comments improved stiffness today Standing Exercises toe tap Side bilateral Reps/Minutes 12 x2 Comments 1st with 1UE support then no support Deadlift Side bilateral Reps/Minutes 6 x3 squat Standing Exercise Name mini squat Side bilateral Equipment Used with B support Reps/Minutes 10 x2 Gait Training Gait Activity ground level Level of Assistance CGA Surface ground level Distance/Duration 200ft and 150 ft Comments pt stated i dont notice about my discomfort at back but more like fatigue Manual Therapy Treatment Soft Tissue Mobilization QL Mobilization Type Sustained Pressure,Trigger Point Release Intensity/Depth Deep Body Position Sidelying Comments improved tenderness to pressure noted. PT-OP-R Modalities Start: 03/18/20 17:40 Freq: Status: Active Protocol: Document 08/27/20 08:55 SP (Rec: 08/27/20 11:12 SP [id number]) Hot Pack/Cold Pack Treatment MHP LS Location B LS Patient Position Prone Treatment Duration (minutes) 10 Patient Tolerance Good Comments decrease LBP PT-OP-T Assessment and Plan Start: 03/18/20 17:40 Freq: Status: Active Protocol: Document 10/03/20 09:50 HH (Rec: 10/03/20 10:36 HH [id number]) Physical Therapy Assessment Goals stair climb Impairment pt needs B support for stair climb Short Term Goal (STG) 09/16 pt was able to toe tap on stairs w/o support for the past month but unable currently d/t recent flare up Usp Goal (LTG) pt will show improve single leg strength so he will be able to complete stair climb ( 3-5 steps) with a step to pattern without support. LTG Duration 8 weeks SL stance Impairment Pt is unable to complete SLS Short Term Goal (STG) 09/16/20 pt previously was able to hold up to 3 s but unable since this recent flare up pt will be able to complete SLS for 5s or more STG Duration 07/30/20 Usp Goal (LTG) pt will be able to complete SLS for 10s or more in order for him to amb / turn without excessive lateral weight shift . LTG Duration 8 weeks amb Impairment pt currently amb with 4WW at all times Short Term Goal (STG) 09/16/20 pt has been able to not use 4WW, but just w/o AD or hiking poles for mobility for the past 2 months. However , he started using 4WW d/t recent flare up pt will be able to amb without 4WW for household distance. STG Duration 6 weeks Booth Supervisor Goal (LTG) 06/27 goal met pt will be able to amb without 4WW for community distance LTG Duration 12 weeks Four Impairment Significant limitations in lumbar ROM (10?-20?) Short Term Goal (STG) 05/20 pt is able to complete active trunk flexion and extension with mild discomfort. Cont to have difficulty with isolated lumbar flexion. Usp Goal (LTG) 06/27 goal met pt is able to complete floor touch with full lumbar flexion LTG Duration 05/20/20 Three Impairment Pt demonstrates right foot drop during gait Short Term Goal (STG) 05/20 goal met Pt stated he doesnt have R foot drop at this point and strength is at 4/5, R hip 4- to 4/5. Booth Supervisor Goal (LTG) 09/16/20 pt regain full ROM and strength at R ankle DF/PF LTG Duration 06/30/20 Two Impairment Pt ambulates 332' (1.43 ft/sec ) using a FWW during a Two Minute Walk Test Short Term Goal (STG) 06/27/20 Pt is able to complete 816' in 6 MWT with hiking poles. Pt took 1 break a between. Pt will be able to amb with LRAD to complete 6 MWT for 900 ft. STG Duration 07/30/20 Booth Supervisor Goal (LTG) 12 weeks Pt to complete a six minute walk test without AD for 1000 ft. LTG Duration 8 weeks One Impairment Pt does not have an appropriate home exercise program Short Term Goal (STG) 05/20 cont in progress pt stated that he is not that compliant with HEP but HEP did help him Pt to be independent and compliant with an appropriate HEP STG Duration 06/19 Assessment Summary Assessment pt is doing well today. able to to tolerate prone kick back without placing his legs down between reps. He is also able to amb without AD for 2 laps today. cont to progress Physical Therapy Plan Frequency and Duration Frequency of Treatment 2x/Week Duration of Treatment 12 weeks Plan of Care Start Date 09/16/20 Plan of Care End Date 12/15/20 Next Visit Focus/Plan Next Note Type Progress Note Next Visit Plan stretch, hip extension, SL stability toe tap, step up and kymberly ttrianing
--- NOTE | 2020-10-07 10:30 | PT.OTN ---
Current Diagnoses Foot drop, right foot (10/07/20) Stiffness of unspecified joint, not elsewhere classified (10/07/20) Stiffness of right hip, not elsewhere classified (10/07/20) Stiffness of left hip, not elsewhere classified (10/07/20) Radiculopathy, lumbar region (10/07/20) Muscle weakness (generalized) (10/07/20) Other abnormalities of gait and mobility (10/07/20) Physical Therapy Treatment Note PT-OP-A Visit Information Start: 03/18/20 17:40 Freq: Status: Active Protocol: Document 10/07/20 09:40 HH (Rec: 10/07/20 10:30 HH [id number]) Out-Patient Physical Therapy Visit Information Visit Information Visit Type Treatment Note Visit Note came in with hiking poles Visit Start Time 09:46 Visit Stop Time 10:30 Total Visit Minutes 44 Visit Number 35 Number of OPERATIONS PLANNER Visits 0 PT-OP-B Current Condition Start: 03/18/20 17:40 Freq: Status: Active Protocol: Document 03/18/20 14:30 DCW (Rec: 03/18/20 17:52 DCW [id number]) Current Condition History of Current Condition Onset Date Eight weeks Current Complaints weakness, gait difficulty, LBP , decreased activity tolerance History of Current Condition Pt is a 69 year old male presenting eight weeks s/p L4- 5 microdiscectomy. Pt reports he has been experiencing low back pain for years, but about 5 months ago, the pain began to rapidly accelerate, and he was found to have ruptured his L4-5 disc. Unfortunately, due to Covid-19 shutdowns, he was unable to get in to have anything done with it, until he finally underwent a microdiscectomy eight weeks ago. Pt reports that prior to the surgery, he was barely moving around, and feels like he has lost a lot of strength and mobility. Pt reports that he had been experiencing weakness and radicular pain down his left leg prior to surgery, however that has improved, and he now has significant right-sided leg weakness. Pt reports he did not use any assistive device prior to his disc rupture, but has pretty much been using a 4WW ever since. Pt is beginning to notice shoulder pain because he is bearing so much weight through his upper extremities. Reports he currently gets fatigued just walking across the room. Treatment Goals Patient/Caregiver Goals I really want to regain strength in my right leg. PT-OP-C Subjective Start: 03/18/20 17:40 Freq: Status: Active Protocol: Document 10/07/20 09:40 HH (Rec: 10/07/20 10:30 HH [id number]) OP-PT Subjective Patient Comments Patient Comments Im doing pretty good so far. Patient Reported Progress Improving PT-OP-E Functional Tests Start: 03/18/20 17:40 Freq: Status: Active Protocol: Document 06/27/20 14:11 HH (Rec: 06/27/20 14:13 HH [id number]) Functional Tests 6 Minute Walk Test Distance 816 Device Used hiking sticks Comments pt took a rest break at 1:55 remaining Other Single leg stance Name of Test pt cannot complete 360 turns Name of Test 4 second each direction Comment limping noted PT-OP-F Manual Assessment Start: 03/18/20 17:40 Freq: Status: Active Protocol: Document 03/18/20 14:30 DCW (Rec: 03/19/20 09:44 DCW [id number]) Manual Assessments Soft Tissue Assessment Soft Tissue Mobility Assessment Hypertonia and tenderness to palpation 2/4: Pain with wincing along bilateral piriformis, bilateral hamstring, bilateral psoas. Joint Mobility Assessment Joint Mobility Assessment Minimal mobility through lumbar spine, majority of flexion movement comes from hips. PT-OP-G Mobility & Gait Start: 03/18/20 17:40 Freq: Status: Active Protocol: Document 03/18/20 14:30 DCW (Rec: 03/19/20 09:44 DCW [id number]) OP Gait Assessment Gait Gait Assistance Required: Standby Assistance Distance (Feet) 178 Able to Maintain Weight Bearing Status Yes During Gait Assistive Devices Assistive Device Gait Belt,4 Wheeled Walker Orthotic/Prosthetic Devices or Brace: No Gait Deviations General Gait Pattern Antalgic,Ataxic,Decreased Stride Length,Decreased Feet Clearance,Flexed Trunk,Wide Based Gait Factors Limiting Gait Function Factors Limiting Gait Function Decreased Activity Tolerance, Decreased Strength,Limited Range of Motion,Pain PT-OP-K Range of Motion Start: 03/18/20 17:40 Freq: Status: Active Protocol: Document 03/18/20 14:30 DCW (Rec: 03/19/20 09:44 DCW [id number]) Lumbar Spine Range of Motion Lumbar Spine Active Degrees Testing Position Standing Flexion 20 Extension 10 ROM Limitations Soft Tissue Tightness,Bony Restriction,Muscle Weakness, Muscle Tone,Pain Comments When attempting to stand upright, pt is still flexed forward 10?, and then despite appearing to have good forward flexion, his lumbar spine only flexes to 20?, and the remainder of the movement comes from his hip. PT-OP-M Strength Start: 03/18/20 17:40 Freq: Status: Active Protocol: Document 03/18/20 14:30 DCW (Rec: 03/19/20 17:21 DCW [id number]) Hip Strength Hip Manual Muscle Testing Right Flexion (L2) 3+ Fair+ Abduction 4 Good Adduction 4 Good Left Flexion (L2) 4+ Good+ Abduction 4+ Good+ Adduction 4+ Good+ Knee Strength Knee Manual Muscle Testing Right Flexion (S2) 4+ Good+ Extension (L3) 4+ Good+ Left Flexion (S2) 4+ Good+ Extension (L3) 4+ Good+ Ankle/Foot Strength Ankle and Foot Manual Muscle Testing Right Dorsiflexion (L4) 3+ Fair+ Plantarflexion (S1) 4 Good Left Dorsiflexion (L4) 4+ Good+ Plantarflexion (S1) 4+ Good+ PT-OP-Q Treatments Start: 03/18/20 17:40 Freq: Status: Active Protocol: Document 10/07/20 09:40 HH (Rec: 10/07/20 10:30 HH [id number]) Therapeutic Exercises Supine Exercises knee to chest Reps/Minutes 10 sec hold x5 Comments for HEP piriformis stretch Side bilateral Reps/Minutes 10 sec hold x5 HS stretch Side bilateral Reps/Minutes 10 sec hold x 5 Sitting Exercises seated reach Sitting Exercise Name floor touch Reps/Minutes 5 x 4 sets Comments improved stiffness today Standing Exercises bend over row Standing Exercise Name unilateral Side bilateral Reps/Minutes 10 x2 toe tap Side bilateral Reps/Minutes 20 x2 Comments 1st with 1UE support then no support Deadlift Side bilateral Reps/Minutes 6 x3 standing hip extension Standing Exercise Name prone on elbows on table with bolster Side bilateral Reps/Minutes 5 x 2 Manual Therapy Treatment Soft Tissue Mobilization QL Mobilization Type Sustained Pressure,Trigger Point Release Intensity/Depth Deep Body Position Sidelying Comments improved tenderness to pressure noted. PT-OP-R Modalities Start: 03/18/20 17:40 Freq: Status: Active Protocol: Document 08/27/20 08:55 SP (Rec: 08/27/20 11:12 SP [id number]) Hot Pack/Cold Pack Treatment MHP LS Location B LS Patient Position Prone Treatment Duration (minutes) 10 Patient Tolerance Good Comments decrease LBP PT-OP-T Assessment and Plan Start: 03/18/20 17:40 Freq: Status: Active Protocol: Document 10/07/20 09:40 HH (Rec: 10/07/20 10:30 HH [id number]) Physical Therapy Assessment Goals stair climb Impairment pt needs B support for stair climb Short Term Goal (STG) 09/16 pt was able to toe tap on stairs w/o support for the past month but unable currently d/t recent flare up Building Trades Instructor Goal (LTG) pt will show improve single leg strength so he will be able to complete stair climb ( 3-5 steps) with a step to pattern without support. LTG Duration 8 weeks SL stance Impairment Pt is unable to complete SLS Short Term Goal (STG) 09/16/20 pt previously was able to hold up to 3 s but unable since this recent flare up pt will be able to complete SLS for 5s or more STG Duration 07/30/20 Building Trades Instructor Goal (LTG) pt will be able to complete SLS for 10s or more in order for him to amb / turn without excessive lateral weight shift . LTG Duration 8 weeks amb Impairment pt currently amb with 4WW at all times Short Term Goal (STG) 09/16/20 pt has been able to not use 4WW, but just w/o AD or hiking poles for mobility for the past 2 months. However , he started using 4WW d/t recent flare up pt will be able to amb without 4WW for household distance. STG Duration 6 weeks Mcc Goal (LTG) 06/27 goal met pt will be able to amb without 4WW for community distance LTG Duration 12 weeks Four Impairment Significant limitations in lumbar ROM (10?-20?) Short Term Goal (STG) 05/20 pt is able to complete active trunk flexion and extension with mild discomfort. Cont to have difficulty with isolated lumbar flexion. Mcc Goal (LTG) 06/27 goal met pt is able to complete floor touch with full lumbar flexion LTG Duration 05/20/20 Three Impairment Pt demonstrates right foot drop during gait Short Term Goal (STG) 05/20 goal met Pt stated he doesnt have R foot drop at this point and strength is at 4/5, R hip 4- to 4/5. Mcc Goal (LTG) 09/16/20 pt regain full ROM and strength at R ankle DF/PF LTG Duration 06/30/20 Two Impairment Pt ambulates 332' (1.43 ft/sec ) using a FWW during a Two Minute Walk Test Short Term Goal (STG) 06/27/20 Pt is able to complete 816' in 6 MWT with hiking poles. Pt took 1 break a between. Pt will be able to amb with LRAD to complete 6 MWT for 900 ft. STG Duration 07/30/20 Mcc Goal (LTG) 12 weeks Pt to complete a six minute walk test without AD for 1000 ft. LTG Duration 8 weeks One Impairment Pt does not have an appropriate home exercise program Short Term Goal (STG) 05/20 cont in progress pt stated that he is not that compliant with HEP but HEP did help him Pt to be independent and compliant with an appropriate HEP STG Duration 06/19 Assessment Summary Assessment Pt progresses slowly and he is able to tolerate trunk stabilization and strnegthening therex. He does get fatigue easily. Cont POC Physical Therapy Plan Frequency and Duration Frequency of Treatment 2x/Week Duration of Treatment 12 weeks Plan of Care Start Date 09/16/20 Plan of Care End Date 12/15/20 Next Visit Focus/Plan Next Note Type Progress Note Next Visit Plan stretch, hip extension, SL stability toe tap, step up and kymberly ttrianing
--- NOTE | 2020-10-10 10:31 | PT.OTN ---
Current Diagnoses Foot drop, right foot (10/10/20) Stiffness of unspecified joint, not elsewhere classified (10/10/20) Stiffness of right hip, not elsewhere classified (10/10/20) Stiffness of left hip, not elsewhere classified (10/10/20) Radiculopathy, lumbar region (10/10/20) Muscle weakness (generalized) (10/10/20) Other abnormalities of gait and mobility (10/10/20) Physical Therapy Treatment Note PT-OP-A Visit Information Start: 03/18/20 17:40 Freq: Status: Active Protocol: Document 10/10/20 09:42 HH (Rec: 10/10/20 10:30 HH [id number]) Out-Patient Physical Therapy Visit Information Visit Information Visit Type Treatment Note Visit Note came in with hiking poles Visit Start Time 09:46 Visit Stop Time 10:30 Total Visit Minutes 44 Visit Number 35 Number of GAS MAKER HELPER Visits 0 PT-OP-B Current Condition Start: 03/18/20 17:40 Freq: Status: Active Protocol: Document 03/18/20 14:30 DCW (Rec: 03/18/20 17:52 DCW [id number]) Current Condition History of Current Condition Onset Date Eight weeks Current Complaints weakness, gait difficulty, LBP , decreased activity tolerance History of Current Condition Pt is a 69 year old male presenting eight weeks s/p L4- 5 microdiscectomy. Pt reports he has been experiencing low back pain for years, but about 5 months ago, the pain began to rapidly accelerate, and he was found to have ruptured his L4-5 disc. Unfortunately, due to Covid-19 shutdowns, he was unable to get in to have anything done with it, until he finally underwent a microdiscectomy eight weeks ago. Pt reports that prior to the surgery, he was barely moving around, and feels like he has lost a lot of strength and mobility. Pt reports that he had been experiencing weakness and radicular pain down his left leg prior to surgery, however that has improved, and he now has significant right-sided leg weakness. Pt reports he did not use any assistive device prior to his disc rupture, but has pretty much been using a 4WW ever since. Pt is beginning to notice shoulder pain because he is bearing so much weight through his upper extremities. Reports he currently gets fatigued just walking across the room. Treatment Goals Patient/Caregiver Goals I really want to regain strength in my right leg. PT-OP-C Subjective Start: 03/18/20 17:40 Freq: Status: Active Protocol: Document 10/10/20 09:42 HH (Rec: 10/10/20 10:30 HH [id number]) OP-PT Subjective Patient Comments Patient Comments Im doing pretty good so far. Patient Reported Progress Improving PT-OP-E Functional Tests Start: 03/18/20 17:40 Freq: Status: Active Protocol: Document 06/27/20 14:11 HH (Rec: 06/27/20 14:13 HH [id number]) Functional Tests 6 Minute Walk Test Distance 816 Device Used hiking sticks Comments pt took a rest break at 1:55 remaining Other Single leg stance Name of Test pt cannot complete 360 turns Name of Test 4 second each direction Comment limping noted PT-OP-F Manual Assessment Start: 03/18/20 17:40 Freq: Status: Active Protocol: Document 03/18/20 14:30 DCW (Rec: 03/19/20 09:44 DCW [id number]) Manual Assessments Soft Tissue Assessment Soft Tissue Mobility Assessment Hypertonia and tenderness to palpation 2/4: Pain with wincing along bilateral piriformis, bilateral hamstring, bilateral psoas. Joint Mobility Assessment Joint Mobility Assessment Minimal mobility through lumbar spine, majority of flexion movement comes from hips. PT-OP-G Mobility & Gait Start: 03/18/20 17:40 Freq: Status: Active Protocol: Document 03/18/20 14:30 DCW (Rec: 03/19/20 09:44 DCW [id number]) OP Gait Assessment Gait Gait Assistance Required: Standby Assistance Distance (Feet) 178 Able to Maintain Weight Bearing Status Yes During Gait Assistive Devices Assistive Device Gait Belt,4 Wheeled Walker Orthotic/Prosthetic Devices or Brace: No Gait Deviations General Gait Pattern Antalgic,Ataxic,Decreased Stride Length,Decreased Feet Clearance,Flexed Trunk,Wide Based Gait Factors Limiting Gait Function Factors Limiting Gait Function Decreased Activity Tolerance, Decreased Strength,Limited Range of Motion,Pain PT-OP-K Range of Motion Start: 03/18/20 17:40 Freq: Status: Active Protocol: Document 03/18/20 14:30 DCW (Rec: 03/19/20 09:44 DCW [id number]) Lumbar Spine Range of Motion Lumbar Spine Active Degrees Testing Position Standing Flexion 20 Extension 10 ROM Limitations Soft Tissue Tightness,Bony Restriction,Muscle Weakness, Muscle Tone,Pain Comments When attempting to stand upright, pt is still flexed forward 10?, and then despite appearing to have good forward flexion, his lumbar spine only flexes to 20?, and the remainder of the movement comes from his hip. PT-OP-M Strength Start: 03/18/20 17:40 Freq: Status: Active Protocol: Document 03/18/20 14:30 DCW (Rec: 03/19/20 17:21 DCW [id number]) Hip Strength Hip Manual Muscle Testing Right Flexion (L2) 3+ Fair+ Abduction 4 Good Adduction 4 Good Left Flexion (L2) 4+ Good+ Abduction 4+ Good+ Adduction 4+ Good+ Knee Strength Knee Manual Muscle Testing Right Flexion (S2) 4+ Good+ Extension (L3) 4+ Good+ Left Flexion (S2) 4+ Good+ Extension (L3) 4+ Good+ Ankle/Foot Strength Ankle and Foot Manual Muscle Testing Right Dorsiflexion (L4) 3+ Fair+ Plantarflexion (S1) 4 Good Left Dorsiflexion (L4) 4+ Good+ Plantarflexion (S1) 4+ Good+ PT-OP-Q Treatments Start: 03/18/20 17:40 Freq: Status: Active Protocol: Document 10/10/20 09:42 HH (Rec: 10/10/20 10:30 HH [id number]) Therapeutic Exercises Supine Exercises knee to chest Reps/Minutes 10 sec hold x5 Comments for HEP piriformis stretch Side bilateral Reps/Minutes 10 sec hold x5 HS stretch Side bilateral Reps/Minutes 10 sec hold x 5 Sitting Exercises seated reach Sitting Exercise Name floor touch Reps/Minutes 5 x 4 sets Comments improved stiffness today Standing Exercises bend over row Standing Exercise Name unilateral Side bilateral Reps/Minutes 10 x2 toe tap Side bilateral Reps/Minutes 20 x2 Comments 1st with 1UE support then no support Deadlift Side bilateral Reps/Minutes 6 x3 Gait Training Gait Activity ground level Level of Assistance CGA Surface ground level Distance/Duration 200ft x2 Comments pt stated i dont notice about my discomfort at back but more like fatigue PT-OP-R Modalities Start: 03/18/20 17:40 Freq: Status: Active Protocol: Document 08/27/20 08:55 SP (Rec: 08/27/20 11:12 SP [id number]) Hot Pack/Cold Pack Treatment MHP LS Location B LS Patient Position Prone Treatment Duration (minutes) 10 Patient Tolerance Good Comments decrease LBP PT-OP-T Assessment and Plan Start: 03/18/20 17:40 Freq: Status: Active Protocol: Document 10/10/20 09:42 HH (Rec: 10/10/20 10:30 HH [id number]) Physical Therapy Assessment Goals stair climb Impairment pt needs B support for stair climb Short Term Goal (STG) 09/16 pt was able to toe tap on stairs w/o support for the past month but unable currently d/t recent flare up Biomaterials Engineer Goal (LTG) pt will show improve single leg strength so he will be able to complete stair climb ( 3-5 steps) with a step to pattern without support. LTG Duration 8 weeks SL stance Impairment Pt is unable to complete SLS Short Term Goal (STG) 09/16/20 pt previously was able to hold up to 3 s but unable since this recent flare up pt will be able to complete SLS for 5s or more STG Duration 07/30/20 Correction Goal (LTG) pt will be able to complete SLS for 10s or more in order for him to amb / turn without excessive lateral weight shift . LTG Duration 8 weeks amb Impairment pt currently amb with 4WW at all times Short Term Goal (STG) 09/16/20 pt has been able to not use 4WW, but just w/o AD or hiking poles for mobility for the past 2 months. However , he started using 4WW d/t recent flare up pt will be able to amb without 4WW for household distance. STG Duration 6 weeks Biomaterials Engineer Goal (LTG) 06/27 goal met pt will be able to amb without 4WW for community distance LTG Duration 12 weeks Four Impairment Significant limitations in lumbar ROM (10?-20?) Short Term Goal (STG) 05/20 pt is able to complete active trunk flexion and extension with mild discomfort. Cont to have difficulty with isolated lumbar flexion. Correction Goal (LTG) 06/27 goal met pt is able to complete floor touch with full lumbar flexion LTG Duration 05/20/20 Three Impairment Pt demonstrates right foot drop during gait Short Term Goal (STG) 05/20 goal met Pt stated he doesnt have R foot drop at this point and strength is at 4/5, R hip 4- to 4/5. Biomaterials Engineer Goal (LTG) 09/16/20 pt regain full ROM and strength at R ankle DF/PF LTG Duration 06/30/20 Two Impairment Pt ambulates 332' (1.43 ft/sec ) using a FWW during a Two Minute Walk Test Short Term Goal (STG) 06/27/20 Pt is able to complete 816' in 6 MWT with hiking poles. Pt took 1 break a between. Pt will be able to amb with LRAD to complete 6 MWT for 900 ft. STG Duration 07/30/20 Biomaterials Engineer Goal (LTG) 12 weeks Pt to complete a six minute walk test without AD for 1000 ft. LTG Duration 8 weeks One Impairment Pt does not have an appropriate home exercise program Short Term Goal (STG) 05/20 cont in progress pt stated that he is not that compliant with HEP but HEP did help him Pt to be independent and compliant with an appropriate HEP STG Duration 06/19 Assessment Summary Assessment Pt nakul session well today. No increased discomfort noted. Physical Therapy Plan Frequency and Duration Frequency of Treatment 2x/Week Duration of Treatment 12 weeks Plan of Care Start Date 09/16/20 Plan of Care End Date 12/15/20 Next Visit Focus/Plan Next Note Type Treatment Note Next Visit Plan stretch, hip extension, SL stability toe tap, step up and kymberly ttrianing
--- NOTE | 2020-10-28 10:31 | PT.OTN ---
Current Diagnoses Foot drop, right foot (10/28/20) Stiffness of unspecified joint, not elsewhere classified (10/28/20) Stiffness of right hip, not elsewhere classified (10/28/20) Stiffness of left hip, not elsewhere classified (10/28/20) Radiculopathy, lumbar region (10/28/20) Muscle weakness (generalized) (10/28/20) Other abnormalities of gait and mobility (10/28/20) Physical Therapy Treatment Note PT-OP-A Visit Information Start: 03/18/20 17:40 Freq: Status: Active Protocol: Document 10/28/20 09:42 HH (Rec: 10/28/20 10:30 HH [id number]) Out-Patient Physical Therapy Visit Information Visit Information Visit Type Treatment Note Visit Note came in with hiking poles Visit Start Time 09:47 Visit Stop Time 10:30 Total Visit Minutes 43 Visit Number 37 Number of TOOL CHECKER Visits 0 PT-OP-B Current Condition Start: 03/18/20 17:40 Freq: Status: Active Protocol: Document 03/18/20 14:30 DCW (Rec: 03/18/20 17:52 DCW [id number]) Current Condition History of Current Condition Onset Date Eight weeks Current Complaints weakness, gait difficulty, LBP , decreased activity tolerance History of Current Condition Pt is a 69 year old male presenting eight weeks s/p L4- 5 microdiscectomy. Pt reports he has been experiencing low back pain for years, but about 5 months ago, the pain began to rapidly accelerate, and he was found to have ruptured his L4-5 disc. Unfortunately, due to Covid-19 shutdowns, he was unable to get in to have anything done with it, until he finally underwent a microdiscectomy eight weeks ago. Pt reports that prior to the surgery, he was barely moving around, and feels like he has lost a lot of strength and mobility. Pt reports that he had been experiencing weakness and radicular pain down his left leg prior to surgery, however that has improved, and he now has significant right-sided leg weakness. Pt reports he did not use any assistive device prior to his disc rupture, but has pretty much been using a 4WW ever since. Pt is beginning to notice shoulder pain because he is bearing so much weight through his upper extremities. Reports he currently gets fatigued just walking across the room. Treatment Goals Patient/Caregiver Goals I really want to regain strength in my right leg. PT-OP-C Subjective Start: 03/18/20 17:40 Freq: Status: Active Protocol: Document 10/28/20 09:42 HH (Rec: 10/28/20 10:30 HH [id number]) OP-PT Subjective Patient Comments Patient Comments I got sore and weak after last session for a few days but i finally kind of recovered now. Patient Reported Progress Same PT-OP-E Functional Tests Start: 03/18/20 17:40 Freq: Status: Active Protocol: Document 06/27/20 14:11 HH (Rec: 06/27/20 14:13 HH [id number]) Functional Tests 6 Minute Walk Test Distance 816 Device Used hiking sticks Comments pt took a rest break at 1:55 remaining Other Single leg stance Name of Test pt cannot complete 360 turns Name of Test 4 second each direction Comment limping noted PT-OP-F Manual Assessment Start: 03/18/20 17:40 Freq: Status: Active Protocol: Document 03/18/20 14:30 DCW (Rec: 03/19/20 09:44 DCW [id number]) Manual Assessments Soft Tissue Assessment Soft Tissue Mobility Assessment Hypertonia and tenderness to palpation 2/4: Pain with wincing along bilateral piriformis, bilateral hamstring, bilateral psoas. Joint Mobility Assessment Joint Mobility Assessment Minimal mobility through lumbar spine, majority of flexion movement comes from hips. PT-OP-G Mobility & Gait Start: 03/18/20 17:40 Freq: Status: Active Protocol: Document 03/18/20 14:30 DCW (Rec: 03/19/20 09:44 DCW [id number]) OP Gait Assessment Gait Gait Assistance Required: Standby Assistance Distance (Feet) 178 Able to Maintain Weight Bearing Status Yes During Gait Assistive Devices Assistive Device Gait Belt,4 Wheeled Walker Orthotic/Prosthetic Devices or Brace: No Gait Deviations General Gait Pattern Antalgic,Ataxic,Decreased Stride Length,Decreased Feet Clearance,Flexed Trunk,Wide Based Gait Factors Limiting Gait Function Factors Limiting Gait Function Decreased Activity Tolerance, Decreased Strength,Limited Range of Motion,Pain PT-OP-K Range of Motion Start: 03/18/20 17:40 Freq: Status: Active Protocol: Document 03/18/20 14:30 DCW (Rec: 03/19/20 09:44 DCW [id number]) Lumbar Spine Range of Motion Lumbar Spine Active Degrees Testing Position Standing Flexion 20 Extension 10 ROM Limitations Soft Tissue Tightness,Bony Restriction,Muscle Weakness, Muscle Tone,Pain Comments When attempting to stand upright, pt is still flexed forward 10?, and then despite appearing to have good forward flexion, his lumbar spine only flexes to 20?, and the remainder of the movement comes from his hip. PT-OP-M Strength Start: 03/18/20 17:40 Freq: Status: Active Protocol: Document 03/18/20 14:30 DCW (Rec: 03/19/20 17:21 DCW [id number]) Hip Strength Hip Manual Muscle Testing Right Flexion (L2) 3+ Fair+ Abduction 4 Good Adduction 4 Good Left Flexion (L2) 4+ Good+ Abduction 4+ Good+ Adduction 4+ Good+ Knee Strength Knee Manual Muscle Testing Right Flexion (S2) 4+ Good+ Extension (L3) 4+ Good+ Left Flexion (S2) 4+ Good+ Extension (L3) 4+ Good+ Ankle/Foot Strength Ankle and Foot Manual Muscle Testing Right Dorsiflexion (L4) 3+ Fair+ Plantarflexion (S1) 4 Good Left Dorsiflexion (L4) 4+ Good+ Plantarflexion (S1) 4+ Good+ PT-OP-Q Treatments Start: 03/18/20 17:40 Freq: Status: Active Protocol: Document 10/28/20 09:42 HH (Rec: 10/28/20 10:30 HH [id number]) Therapeutic Exercises Supine Exercises knee to chest Reps/Minutes 10 sec hold x5 piriformis stretch Side bilateral Reps/Minutes 10 sec hold x5 HS stretch Side bilateral Reps/Minutes 10 sec hold x 5 LTR Side bilateral Equipment Used red therapy ball Reps/Minutes 10 x2 ab curl Side bilateral Equipment Used red therapy ball Reps/Minutes 10 x2 Prone Exercises hip extension Prone Exercise Name prone on elbow on bolster Side bilateral Reps/Minutes 10 x2 Sitting Exercises trunk isometrics Sitting Exercise Name extension and flexion in seated position Side bilateral Reps/Minutes 10 sec x 5 x 2 Comments against PT resistance seated reach Sitting Exercise Name floor touch Reps/Minutes 5 x 4 sets Comments improved stiffness today Standing Exercises trunk extension Standing Exercise Name back against wall, flexion and extension Reps/Minutes 8 x2 Manual Therapy Treatment Soft Tissue Mobilization QL Mobilization Type Sustained Pressure,Trigger Point Release Intensity/Depth Moderate Body Position Sidelying Comments increased tone noted today at R QL PT-OP-R Modalities Start: 03/18/20 17:40 Freq: Status: Active Protocol: Document 08/27/20 08:55 SP (Rec: 08/27/20 11:12 SP [id number]) Hot Pack/Cold Pack Treatment MHP LS Location B LS Patient Position Prone Treatment Duration (minutes) 10 Patient Tolerance Good Comments decrease LBP PT-OP-T Assessment and Plan Start: 03/18/20 17:40 Freq: Status: Active Protocol: Document 10/28/20 09:42 HH (Rec: 10/28/20 10:30 HH [id number]) Physical Therapy Assessment Goals stair climb Impairment pt needs B support for stair climb Short Term Goal (STG) 09/16 pt was able to toe tap on stairs w/o support for the past month but unable currently d/t recent flare up [facility] Goal (LTG) pt will show improve single leg strength so he will be able to complete stair climb ( 3-5 steps) with a step to pattern without support. LTG Duration 8 weeks SL stance Impairment Pt is unable to complete SLS Short Term Goal (STG) 09/16/20 pt previously was able to hold up to 3 s but unable since this recent flare up pt will be able to complete SLS for 5s or more STG Duration 07/30/20 [facility] Goal (LTG) pt will be able to complete SLS for 10s or more in order for him to amb / turn without excessive lateral weight shift . LTG Duration 8 weeks amb Impairment pt currently amb with 4WW at all times Short Term Goal (STG) 09/16/20 pt has been able to not use 4WW, but just w/o AD or hiking poles for mobility for the past 2 months. However , he started using 4WW d/t recent flare up pt will be able to amb without 4WW for household distance. STG Duration 6 weeks [facility] Goal (LTG) 06/27 goal met pt will be able to amb without 4WW for community distance LTG Duration 12 weeks Four Impairment Significant limitations in lumbar ROM (10?-20?) Short Term Goal (STG) 05/20 pt is able to complete active trunk flexion and extension with mild discomfort. Cont to have difficulty with isolated lumbar flexion. Rod Machine Operator Goal (LTG) 06/27 goal met pt is able to complete floor touch with full lumbar flexion LTG Duration 05/20/20 Three Impairment Pt demonstrates right foot drop during gait Short Term Goal (STG) 05/20 goal met Pt stated he doesnt have R foot drop at this point and strength is at 4/5, R hip 4- to 4/5. Rod Machine Operator Goal (LTG) 09/16/20 pt regain full ROM and strength at R ankle DF/PF LTG Duration 06/30/20 Two Impairment Pt ambulates 332' (1.43 ft/sec ) using a FWW during a Two Minute Walk Test Short Term Goal (STG) 06/27/20 Pt is able to complete 816' in 6 MWT with hiking poles. Pt took 1 break a between. Pt will be able to amb with LRAD to complete 6 MWT for 900 ft. STG Duration 07/30/20 Rod Machine Operator Goal (LTG) 12 weeks Pt to complete a six minute walk test without AD for 1000 ft. LTG Duration 8 weeks Assessment Summary Assessment Pt has increased stiffness at low back today after last session with increased trunk extension activity. Tx focused primarily with stretching and mobility today. Pt feels better afterwards. Will cont closely monitor his extension tolerance Physical Therapy Plan Frequency and Duration Frequency of Treatment 2x/Week Duration of Treatment 12 weeks Plan of Care Start Date 09/16/20 Plan of Care End Date 12/15/20 Next Visit Focus/Plan Next Note Type Treatment Note Next Visit Plan stretch, hip extension, SL stability toe tap, step up and kymberly ttrianing
--- NOTE | 2020-10-31 10:35 | PT.OTN ---
Current Diagnoses Foot drop, right foot (10/31/20) Stiffness of unspecified joint, not elsewhere classified (10/31/20) Stiffness of right hip, not elsewhere classified (10/31/20) Stiffness of left hip, not elsewhere classified (10/31/20) Radiculopathy, lumbar region (10/31/20) Muscle weakness (generalized) (10/31/20) Other abnormalities of gait and mobility (10/31/20) Physical Therapy Treatment Note PT-OP-A Visit Information Start: 03/18/20 17:40 Freq: Status: Active Protocol: Document 10/31/20 09:43 HH (Rec: 10/31/20 10:35 HH [id number]) Out-Patient Physical Therapy Visit Information Visit Information Visit Type Treatment Note Visit Note came in with hiking poles Visit Start Time 09:45 Visit Stop Time 10:30 Total Visit Minutes 45 Visit Number 38 Number of HORSE IDENTIFIER Visits 0 PT-OP-B Current Condition Start: 03/18/20 17:40 Freq: Status: Active Protocol: Document 03/18/20 14:30 DCW (Rec: 03/18/20 17:52 DCW [id number]) Current Condition History of Current Condition Onset Date Eight weeks Current Complaints weakness, gait difficulty, LBP , decreased activity tolerance History of Current Condition Pt is a 69 year old male presenting eight weeks s/p L4- 5 microdiscectomy. Pt reports he has been experiencing low back pain for years, but about 5 months ago, the pain began to rapidly accelerate, and he was found to have ruptured his L4-5 disc. Unfortunately, due to Covid-19 shutdowns, he was unable to get in to have anything done with it, until he finally underwent a microdiscectomy eight weeks ago. Pt reports that prior to the surgery, he was barely moving around, and feels like he has lost a lot of strength and mobility. Pt reports that he had been experiencing weakness and radicular pain down his left leg prior to surgery, however that has improved, and he now has significant right-sided leg weakness. Pt reports he did not use any assistive device prior to his disc rupture, but has pretty much been using a 4WW ever since. Pt is beginning to notice shoulder pain because he is bearing so much weight through his upper extremities. Reports he currently gets fatigued just walking across the room. Treatment Goals Patient/Caregiver Goals I really want to regain strength in my right leg. PT-OP-C Subjective Start: 03/18/20 17:40 Freq: Status: Active Protocol: Document 10/31/20 09:43 HH (Rec: 10/31/20 10:35 HH [id number]) OP-PT Subjective Patient Comments Patient Comments I got a massage yesterday but in prone position. I thought i was good until i got up after which killed my back. Im definitely more stiff today. Patient Reported Progress Improving PT-OP-E Functional Tests Start: 03/18/20 17:40 Freq: Status: Active Protocol: Document 06/27/20 14:11 HH (Rec: 06/27/20 14:13 HH [id number]) Functional Tests 6 Minute Walk Test Distance 816 Device Used hiking sticks Comments pt took a rest break at 1:55 remaining Other Single leg stance Name of Test pt cannot complete 360 turns Name of Test 4 second each direction Comment limping noted PT-OP-F Manual Assessment Start: 03/18/20 17:40 Freq: Status: Active Protocol: Document 03/18/20 14:30 DCW (Rec: 03/19/20 09:44 DCW [id number]) Manual Assessments Soft Tissue Assessment Soft Tissue Mobility Assessment Hypertonia and tenderness to palpation 2/4: Pain with wincing along bilateral piriformis, bilateral hamstring, bilateral psoas. Joint Mobility Assessment Joint Mobility Assessment Minimal mobility through lumbar spine, majority of flexion movement comes from hips. PT-OP-G Mobility & Gait Start: 03/18/20 17:40 Freq: Status: Active Protocol: Document 03/18/20 14:30 DCW (Rec: 03/19/20 09:44 DCW [id number]) OP Gait Assessment Gait Gait Assistance Required: Standby Assistance Distance (Feet) 178 Able to Maintain Weight Bearing Status Yes During Gait Assistive Devices Assistive Device Gait Belt,4 Wheeled Walker Orthotic/Prosthetic Devices or Brace: No Gait Deviations General Gait Pattern Antalgic,Ataxic,Decreased Stride Length,Decreased Feet Clearance,Flexed Trunk,Wide Based Gait Factors Limiting Gait Function Factors Limiting Gait Function Decreased Activity Tolerance, Decreased Strength,Limited Range of Motion,Pain PT-OP-K Range of Motion Start: 03/18/20 17:40 Freq: Status: Active Protocol: Document 03/18/20 14:30 DCW (Rec: 03/19/20 09:44 DCW [id number]) Lumbar Spine Range of Motion Lumbar Spine Active Degrees Testing Position Standing Flexion 20 Extension 10 ROM Limitations Soft Tissue Tightness,Bony Restriction,Muscle Weakness, Muscle Tone,Pain Comments When attempting to stand upright, pt is still flexed forward 10?, and then despite appearing to have good forward flexion, his lumbar spine only flexes to 20?, and the remainder of the movement comes from his hip. PT-OP-M Strength Start: 03/18/20 17:40 Freq: Status: Active Protocol: Document 03/18/20 14:30 DCW (Rec: 03/19/20 17:21 DCW [id number]) Hip Strength Hip Manual Muscle Testing Right Flexion (L2) 3+ Fair+ Abduction 4 Good Adduction 4 Good Left Flexion (L2) 4+ Good+ Abduction 4+ Good+ Adduction 4+ Good+ Knee Strength Knee Manual Muscle Testing Right Flexion (S2) 4+ Good+ Extension (L3) 4+ Good+ Left Flexion (S2) 4+ Good+ Extension (L3) 4+ Good+ Ankle/Foot Strength Ankle and Foot Manual Muscle Testing Right Dorsiflexion (L4) 3+ Fair+ Plantarflexion (S1) 4 Good Left Dorsiflexion (L4) 4+ Good+ Plantarflexion (S1) 4+ Good+ PT-OP-Q Treatments Start: 03/18/20 17:40 Freq: Status: Active Protocol: Document 10/31/20 09:43 HH (Rec: 10/31/20 10:35 HH [id number]) Therapeutic Exercises Supine Exercises knee to chest Reps/Minutes 10 sec hold x5 piriformis stretch Side bilateral Reps/Minutes 10 sec hold x5 HS stretch Side bilateral Reps/Minutes 10 sec hold x 5 Nimesh Stretch Side bilateral Reps/Minutes 10sec hold x4 bridging Side bilateral Reps/Minutes 10 x2 Sitting Exercises trunk isometrics Sitting Exercise Name extension and flexion in seated position Side bilateral Reps/Minutes 10 sec x 5 x 2 Comments against PT resistance seated reach Sitting Exercise Name floor touch Reps/Minutes 5 x 4 sets Comments improved stiffness today Standing Exercises toe touch Side bilateral Reps/Minutes 5x2 Comments pain noted and slower movement today Manual Therapy Treatment Soft Tissue Mobilization QL Mobilization Type Sustained Pressure,Trigger Point Release Intensity/Depth Moderate Body Position Sidelying Comments mild tone noted today at R QL but increased tone at glute med PT-OP-R Modalities Start: 03/18/20 17:40 Freq: Status: Active Protocol: Document 08/27/20 08:55 SP (Rec: 08/27/20 11:12 SP [id number]) Hot Pack/Cold Pack Treatment MHP LS Location B LS Patient Position Prone Treatment Duration (minutes) 10 Patient Tolerance Good Comments decrease LBP PT-OP-T Assessment and Plan Start: 03/18/20 17:40 Freq: Status: Active Protocol: Document 10/31/20 09:43 HH (Rec: 10/31/20 10:35 HH [id number]) Physical Therapy Assessment Goals stair climb Impairment pt needs B support for stair climb Short Term Goal (STG) 09/16 pt was able to toe tap on stairs w/o support for the past month but unable currently d/t recent flare up [facility] Goal (LTG) pt will show improve single leg strength so he will be able to complete stair climb ( 3-5 steps) with a step to pattern without support. LTG Duration 8 weeks SL stance Impairment Pt is unable to complete SLS Short Term Goal (STG) 09/16/20 pt previously was able to hold up to 3 s but unable since this recent flare up pt will be able to complete SLS for 5s or more STG Duration 07/30/20 [facility] Goal (LTG) pt will be able to complete SLS for 10s or more in order for him to amb / turn without excessive lateral weight shift . LTG Duration 8 weeks amb Impairment pt currently amb with 4WW at all times Short Term Goal (STG) 09/16/20 pt has been able to not use 4WW, but just w/o AD or hiking poles for mobility for the past 2 months. However , he started using 4WW d/t recent flare up pt will be able to amb without 4WW for household distance. STG Duration 6 weeks Tab Card Press Operator Goal (LTG) 06/27 goal met pt will be able to amb without 4WW for community distance LTG Duration 12 weeks Four Impairment Significant limitations in lumbar ROM (10?-20?) Short Term Goal (STG) 05/20 pt is able to complete active trunk flexion and extension with mild discomfort. Cont to have difficulty with isolated lumbar flexion. Tab Card Press Operator Goal (LTG) 06/27 goal met pt is able to complete floor touch with full lumbar flexion LTG Duration 05/20/20 Three Impairment Pt demonstrates right foot drop during gait Short Term Goal (STG) 05/20 goal met Pt stated he doesnt have R foot drop at this point and strength is at 4/5, R hip 4- to 4/5. [facility] Goal (LTG) 09/16/20 pt regain full ROM and strength at R ankle DF/PF LTG Duration 06/30/20 Two Impairment Pt ambulates 332' (1.43 ft/sec ) using a FWW during a Two Minute Walk Test Short Term Goal (STG) 06/27/20 Pt is able to complete 816' in 6 MWT with hiking poles. Pt took 1 break a between. Pt will be able to amb with LRAD to complete 6 MWT for 900 ft. STG Duration 07/30/20 Tab Card Press Operator Goal (LTG) 12 weeks Pt to complete a six minute walk test without AD for 1000 ft. LTG Duration 8 weeks One Impairment Pt does not have an appropriate home exercise program Short Term Goal (STG) 05/20 cont in progress pt stated that he is not that compliant with HEP but HEP did help him Pt to be independent and compliant with an appropriate HEP STG Duration 06/19 Assessment Summary Assessment Pt has a minor flare up today after being in the prone position at his massage appointment. Pt nakul session okay and he does report poor endurance for extension isometrics. Physical Therapy Plan Frequency and Duration Frequency of Treatment 2x/Week Duration of Treatment 12 weeks Plan of Care Start Date 09/16/20 Plan of Care End Date 12/15/20 Next Visit Focus/Plan Next Note Type Treatment Note Next Visit Plan stretch, hip extension, SL stability toe tap, step up and kymberly ttrianing
--- NOTE | 2020-11-04 12:07 | PT.OTN ---
Current Diagnoses Foot drop, right foot (11/04/20) Stiffness of unspecified joint, not elsewhere classified (11/04/20) Stiffness of right hip, not elsewhere classified (11/04/20) Stiffness of left hip, not elsewhere classified (11/04/20) Radiculopathy, lumbar region (11/04/20) Muscle weakness (generalized) (11/04/20) Other abnormalities of gait and mobility (11/04/20) Physical Therapy Treatment Note PT-OP-A Visit Information Start: 03/18/20 17:40 Freq: Status: Active Protocol: Document 11/04/20 09:46 HH (Rec: 11/04/20 10:33 HH [id number]) Out-Patient Physical Therapy Visit Information Visit Information Visit Type Treatment Note Visit Note came in with hiking poles Visit Start Time 09:46 Visit Stop Time 10:30 Total Visit Minutes 44 Visit Number 39 Number of FIRING PIN GAUGER Visits 0 PT-OP-B Current Condition Start: 03/18/20 17:40 Freq: Status: Active Protocol: Document 03/18/20 14:30 DCW (Rec: 03/18/20 17:52 DCW [id number]) Current Condition History of Current Condition Onset Date Eight weeks Current Complaints weakness, gait difficulty, LBP , decreased activity tolerance History of Current Condition Pt is a 69 year old male presenting eight weeks s/p L4- 5 microdiscectomy. Pt reports he has been experiencing low back pain for years, but about 5 months ago, the pain began to rapidly accelerate, and he was found to have ruptured his L4-5 disc. Unfortunately, due to Covid-19 shutdowns, he was unable to get in to have anything done with it, until he finally underwent a microdiscectomy eight weeks ago. Pt reports that prior to the surgery, he was barely moving around, and feels like he has lost a lot of strength and mobility. Pt reports that he had been experiencing weakness and radicular pain down his left leg prior to surgery, however that has improved, and he now has significant right-sided leg weakness. Pt reports he did not use any assistive device prior to his disc rupture, but has pretty much been using a 4WW ever since. Pt is beginning to notice shoulder pain because he is bearing so much weight through his upper extremities. Reports he currently gets fatigued just walking across the room. Treatment Goals Patient/Caregiver Goals I really want to regain strength in my right leg. PT-OP-C Subjective Start: 03/18/20 17:40 Freq: Status: Active Protocol: Document 11/04/20 09:46 HH (Rec: 11/04/20 10:33 HH [id number]) OP-PT Subjective Patient Comments Patient Comments I still feel stiff today since that massage appointment and painful to move Patient Reported Progress Same PT-OP-E Functional Tests Start: 03/18/20 17:40 Freq: Status: Active Protocol: Document 06/27/20 14:11 HH (Rec: 06/27/20 14:13 HH [id number]) Functional Tests 6 Minute Walk Test Distance 816 Device Used hiking sticks Comments pt took a rest break at 1:55 remaining Other Single leg stance Name of Test pt cannot complete 360 turns Name of Test 4 second each direction Comment limping noted PT-OP-F Manual Assessment Start: 03/18/20 17:40 Freq: Status: Active Protocol: Document 03/18/20 14:30 DCW (Rec: 03/19/20 09:44 DCW [id number]) Manual Assessments Soft Tissue Assessment Soft Tissue Mobility Assessment Hypertonia and tenderness to palpation 2/4: Pain with wincing along bilateral piriformis, bilateral hamstring, bilateral psoas. Joint Mobility Assessment Joint Mobility Assessment Minimal mobility through lumbar spine, majority of flexion movement comes from hips. PT-OP-G Mobility & Gait Start: 03/18/20 17:40 Freq: Status: Active Protocol: Document 03/18/20 14:30 DCW (Rec: 03/19/20 09:44 DCW [id number]) OP Gait Assessment Gait Gait Assistance Required: Standby Assistance Distance (Feet) 178 Able to Maintain Weight Bearing Status Yes During Gait Assistive Devices Assistive Device Gait Belt,4 Wheeled Walker Orthotic/Prosthetic Devices or Brace: No Gait Deviations General Gait Pattern Antalgic,Ataxic,Decreased Stride Length,Decreased Feet Clearance,Flexed Trunk,Wide Based Gait Factors Limiting Gait Function Factors Limiting Gait Function Decreased Activity Tolerance, Decreased Strength,Limited Range of Motion,Pain PT-OP-K Range of Motion Start: 03/18/20 17:40 Freq: Status: Active Protocol: Document 03/18/20 14:30 DCW (Rec: 03/19/20 09:44 DCW [id number]) Lumbar Spine Range of Motion Lumbar Spine Active Degrees Testing Position Standing Flexion 20 Extension 10 ROM Limitations Soft Tissue Tightness,Bony Restriction,Muscle Weakness, Muscle Tone,Pain Comments When attempting to stand upright, pt is still flexed forward 10?, and then despite appearing to have good forward flexion, his lumbar spine only flexes to 20?, and the remainder of the movement comes from his hip. PT-OP-M Strength Start: 03/18/20 17:40 Freq: Status: Active Protocol: Document 03/18/20 14:30 DCW (Rec: 03/19/20 17:21 DCW [id number]) Hip Strength Hip Manual Muscle Testing Right Flexion (L2) 3+ Fair+ Abduction 4 Good Adduction 4 Good Left Flexion (L2) 4+ Good+ Abduction 4+ Good+ Adduction 4+ Good+ Knee Strength Knee Manual Muscle Testing Right Flexion (S2) 4+ Good+ Extension (L3) 4+ Good+ Left Flexion (S2) 4+ Good+ Extension (L3) 4+ Good+ Ankle/Foot Strength Ankle and Foot Manual Muscle Testing Right Dorsiflexion (L4) 3+ Fair+ Plantarflexion (S1) 4 Good Left Dorsiflexion (L4) 4+ Good+ Plantarflexion (S1) 4+ Good+ PT-OP-Q Treatments Start: 03/18/20 17:40 Freq: Status: Active Protocol: Document 11/04/20 09:46 HH (Rec: 11/04/20 10:33 HH [id number]) Therapeutic Exercises Supine Exercises knee to chest Reps/Minutes 10 sec hold x5 piriformis stretch Side bilateral Reps/Minutes 10 sec hold x5 HS stretch Side bilateral Reps/Minutes 10 sec hold x 5 Nimesh Stretch Side bilateral Reps/Minutes 10sec hold x4 bridging Side bilateral Reps/Minutes 10 x2 Sitting Exercises trunk isometrics Sitting Exercise Name extension and flexion in seated position Side bilateral Reps/Minutes 10 sec x 5 x 2 Comments against PT resistance Standing Exercises toe touch Side bilateral Reps/Minutes 5x2 Comments pain noted and slower movement today Manual Therapy Treatment Soft Tissue Mobilization QL Mobilization Type Sustained Pressure,Trigger Point Release Intensity/Depth Moderate Body Position Sidelying Comments mild tone noted today at R QL but increased tone at glute med PT-OP-R Modalities Start: 03/18/20 17:40 Freq: Status: Active Protocol: Document 08/27/20 08:55 SP (Rec: 08/27/20 11:12 SP [id number]) Hot Pack/Cold Pack Treatment MHP LS Location B LS Patient Position Prone Treatment Duration (minutes) 10 Patient Tolerance Good Comments decrease LBP PT-OP-T Assessment and Plan Start: 03/18/20 17:40 Freq: Status: Active Protocol: Document 11/04/20 09:46 HH (Rec: 11/04/20 10:33 HH [id number]) Physical Therapy Assessment Goals stair climb Impairment pt needs B support for stair climb Short Term Goal (STG) 09/16 pt was able to toe tap on stairs w/o support for the past month but unable currently d/t recent flare up Longterm Goal (LTG) pt will show improve single leg strength so he will be able to complete stair climb ( 3-5 steps) with a step to pattern without support. LTG Duration 8 weeks SL stance Impairment Pt is unable to complete SLS Short Term Goal (STG) 09/16/20 pt previously was able to hold up to 3 s but unable since this recent flare up pt will be able to complete SLS for 5s or more STG Duration 07/30/20 Patternmaker Grader Goal (LTG) pt will be able to complete SLS for 10s or more in order for him to amb / turn without excessive lateral weight shift . LTG Duration 8 weeks amb Impairment pt currently amb with 4WW at all times Short Term Goal (STG) 09/16/20 pt has been able to not use 4WW, but just w/o AD or hiking poles for mobility for the past 2 months. However , he started using 4WW d/t recent flare up pt will be able to amb without 4WW for household distance. STG Duration 6 weeks Patternmaker Grader Goal (LTG) 06/27 goal met pt will be able to amb without 4WW for community distance LTG Duration 12 weeks Four Impairment Significant limitations in lumbar ROM (10?-20?) Short Term Goal (STG) 05/20 pt is able to complete active trunk flexion and extension with mild discomfort. Cont to have difficulty with isolated lumbar flexion. Patternmaker Grader Goal (LTG) 06/27 goal met pt is able to complete floor touch with full lumbar flexion LTG Duration 05/20/20 Three Impairment Pt demonstrates right foot drop during gait Short Term Goal (STG) 05/20 goal met Pt stated he doesnt have R foot drop at this point and strength is at 4/5, R hip 4- to 4/5. Patternmaker Grader Goal (LTG) 09/16/20 pt regain full ROM and strength at R ankle DF/PF LTG Duration 06/30/20 Two Impairment Pt ambulates 332' (1.43 ft/sec ) using a FWW during a Two Minute Walk Test Short Term Goal (STG) 06/27/20 Pt is able to complete 816' in 6 MWT with hiking poles. Pt took 1 break a between. Pt will be able to amb with LRAD to complete 6 MWT for 900 ft. STG Duration 07/30/20 Patternmaker Grader Goal (LTG) 12 weeks Pt to complete a six minute walk test without AD for 1000 ft. LTG Duration 8 weeks One Impairment Pt does not have an appropriate home exercise program Short Term Goal (STG) 05/20 cont in progress pt stated that he is not that compliant with HEP but HEP did help him Pt to be independent and compliant with an appropriate HEP STG Duration 06/19 Assessment Summary Assessment Pt continue to have stiffness and pain at low back since his massage appointment. Rec pt to practice trunk flexion ex 3 times a day. Physical Therapy Plan Frequency and Duration Frequency of Treatment 2x/Week Duration of Treatment 12 weeks Plan of Care Start Date 09/16/20 Plan of Care End Date 12/15/20 Next Visit Focus/Plan Next Note Type Treatment Note Next Visit Plan stretch, hip extension, SL stability toe tap, step up and kymberly ttrianing
--- NOTE | 2020-11-07 12:10 | PT.OTN ---
Current Diagnoses Foot drop, right foot (11/07/20) Stiffness of unspecified joint, not elsewhere classified (11/07/20) Stiffness of right hip, not elsewhere classified (11/07/20) Stiffness of left hip, not elsewhere classified (11/07/20) Radiculopathy, lumbar region (11/07/20) Muscle weakness (generalized) (11/07/20) Other abnormalities of gait and mobility (11/07/20) Physical Therapy Treatment Note PT-OP-A Visit Information Start: 03/18/20 17:40 Freq: Status: Active Protocol: Document 11/07/20 09:44 HH (Rec: 11/07/20 10:33 HH [id number]) Out-Patient Physical Therapy Visit Information Visit Information Visit Type Progress Note Visit Start Time 09:47 Visit Stop Time 10:30 Total Visit Minutes 43 Visit Number 40 Number of MANAGER SITE Visits 0 PT-OP-B Current Condition Start: 03/18/20 17:40 Freq: Status: Active Protocol: Document 03/18/20 14:30 DCW (Rec: 03/18/20 17:52 DCW [id number]) Current Condition History of Current Condition Onset Date Eight weeks Current Complaints weakness, gait difficulty, LBP , decreased activity tolerance History of Current Condition Pt is a 69 year old male presenting eight weeks s/p L4- 5 microdiscectomy. Pt reports he has been experiencing low back pain for years, but about 5 months ago, the pain began to rapidly accelerate, and he was found to have ruptured his L4-5 disc. Unfortunately, due to Covid-19 shutdowns, he was unable to get in to have anything done with it, until he finally underwent a microdiscectomy eight weeks ago. Pt reports that prior to the surgery, he was barely moving around, and feels like he has lost a lot of strength and mobility. Pt reports that he had been experiencing weakness and radicular pain down his left leg prior to surgery, however that has improved, and he now has significant right-sided leg weakness. Pt reports he did not use any assistive device prior to his disc rupture, but has pretty much been using a 4WW ever since. Pt is beginning to notice shoulder pain because he is bearing so much weight through his upper extremities. Reports he currently gets fatigued just walking across the room. Treatment Goals Patient/Caregiver Goals I really want to regain strength in my right leg. PT-OP-C Subjective Start: 03/18/20 17:40 Freq: Status: Active Protocol: Document 11/07/20 09:44 HH (Rec: 11/07/20 10:33 HH [id number]) OP-PT Subjective Patient Comments Patient Comments I went to a restaurant yesterday without using any device. It was pretty but i do feel alittle stiff today. Patient Reported Progress Improving PT-OP-E Functional Tests Start: 03/18/20 17:40 Freq: Status: Active Protocol: Document 06/27/20 14:11 HH (Rec: 06/27/20 14:13 HH [id number]) Functional Tests 6 Minute Walk Test Distance 816 Device Used hiking sticks Comments pt took a rest break at 1:55 remaining Other Single leg stance Name of Test pt cannot complete 360 turns Name of Test 4 second each direction Comment limping noted PT-OP-F Manual Assessment Start: 03/18/20 17:40 Freq: Status: Active Protocol: Document 03/18/20 14:30 DCW (Rec: 03/19/20 09:44 DCW [id number]) Manual Assessments Soft Tissue Assessment Soft Tissue Mobility Assessment Hypertonia and tenderness to palpation 2/4: Pain with wincing along bilateral piriformis, bilateral hamstring, bilateral psoas. Joint Mobility Assessment Joint Mobility Assessment Minimal mobility through lumbar spine, majority of flexion movement comes from hips. PT-OP-G Mobility & Gait Start: 03/18/20 17:40 Freq: Status: Active Protocol: Document 03/18/20 14:30 DCW (Rec: 03/19/20 09:44 DCW [id number]) OP Gait Assessment Gait Gait Assistance Required: Standby Assistance Distance (Feet) 178 Able to Maintain Weight Bearing Status Yes During Gait Assistive Devices Assistive Device Gait Belt,4 Wheeled Walker Orthotic/Prosthetic Devices or Brace: No Gait Deviations General Gait Pattern Antalgic,Ataxic,Decreased Stride Length,Decreased Feet Clearance,Flexed Trunk,Wide Based Gait Factors Limiting Gait Function Factors Limiting Gait Function Decreased Activity Tolerance, Decreased Strength,Limited Range of Motion,Pain PT-OP-K Range of Motion Start: 03/18/20 17:40 Freq: Status: Active Protocol: Document 07/20/20 14:30 DCW (Rec: 07/21/20 09:44 DCW [id number]) Lumbar Spine Range of Motion Lumbar Spine Active Degrees Testing Position Standing Flexion 20 Extension 10 ROM Limitations Soft Tissue Tightness,Bony Restriction,Muscle Weakness, Muscle Tone,Pain Comments When attempting to stand upright, pt is still flexed forward 10?, and then despite appearing to have good forward flexion, his lumbar spine only flexes to 20?, and the remainder of the movement comes from his hip. PT-OP-M Strength Start: 03/18/20 17:40 Freq: Status: Active Protocol: Document 03/18/20 14:30 DCW (Rec: 03/19/20 17:21 DCW [id number]) Hip Strength Hip Manual Muscle Testing Right Flexion (L2) 3+ Fair+ Abduction 4 Good Adduction 4 Good Left Flexion (L2) 4+ Good+ Abduction 4+ Good+ Adduction 4+ Good+ Knee Strength Knee Manual Muscle Testing Right Flexion (S2) 4+ Good+ Extension (L3) 4+ Good+ Left Flexion (S2) 4+ Good+ Extension (L3) 4+ Good+ Ankle/Foot Strength Ankle and Foot Manual Muscle Testing Right Dorsiflexion (L4) 3+ Fair+ Plantarflexion (S1) 4 Good Left Dorsiflexion (L4) 4+ Good+ Plantarflexion (S1) 4+ Good+ PT-OP-Q Treatments Start: 03/18/20 17:40 Freq: Status: Active Protocol: Document 11/07/20 09:44 HH (Rec: 11/07/20 10:33 HH [id number]) Therapeutic Exercises Supine Exercises knee to chest Reps/Minutes 10 sec hold x5 piriformis stretch Side bilateral Reps/Minutes 10 sec hold x5 HS stretch Side bilateral Reps/Minutes 10 sec hold x 5 Nimesh Stretch Side bilateral Reps/Minutes 10sec hold x4 pelvic tilt Equipment Used on red therapy ball Reps/Minutes 10 x2 bridging Side bilateral Reps/Minutes 10 x2 Sitting Exercises trunk isometrics Sitting Exercise Name extension and flexion in seated position Side bilateral Reps/Minutes 10 sec x 5 x 2 Comments against PT resistance seated reach Sitting Exercise Name floor touch Reps/Minutes 5 x 4 sets Comments improved stiffness today Standing Exercises crab walk Side bilateral Equipment Used yellow band at knees Reps/Minutes 20 ft x 8 Manual Therapy Treatment Soft Tissue Mobilization QL Mobilization Type Sustained Pressure,Trigger Point Release Intensity/Depth Moderate Body Position Sidelying Comments mild tone noted today at R QL but increased tone at glute med PT-OP-R Modalities Start: 03/18/20 17:40 Freq: Status: Active Protocol: Document 08/27/20 08:55 SP (Rec: 08/27/20 11:12 SP [id number]) Hot Pack/Cold Pack Treatment MHP LS Location B LS Patient Position Prone Treatment Duration (minutes) 10 Patient Tolerance Good Comments decrease LBP PT-OP-T Assessment and Plan Start: 03/18/20 17:40 Freq: Status: Active Protocol: Document 11/07/20 09:44 HH (Rec: 11/07/20 10:33 HH [id number]) Physical Therapy Assessment Goals stair climb Impairment pt needs B support for stair climb Short Term Goal (STG) 09/16 pt was able to toe tap on stairs w/o support for the past month but unable currently d/t recent flare up Cash Surrender Calculator Goal (LTG) pt will show improve single leg strength so he will be able to complete stair climb ( 3-5 steps) with a step to pattern without support. LTG Duration 8 weeks SL stance Impairment Pt is unable to complete SLS Short Term Goal (STG) 09/16/20 pt previously was able to hold up to 3 s but unable since this recent flare up pt will be able to complete SLS for 5s or more STG Duration 07/30/20 Custodial Goal (LTG) pt will be able to complete SLS for 10s or more in order for him to amb / turn without excessive lateral weight shift . LTG Duration 8 weeks amb Impairment pt currently amb with 4WW at all times Short Term Goal (STG) 09/16/20 pt has been able to not use 4WW, but just w/o AD or hiking poles for mobility for the past 2 months. However , he started using 4WW d/t recent flare up pt will be able to amb without 4WW for household distance. STG Duration 6 weeks Custodial Goal (LTG) 06/27 goal met pt will be able to amb without 4WW for community distance LTG Duration 12 weeks Progress Towards Goals Progress Towards Goals Slow Progress due to Activity Tolerance,Slow Progress due to Medical Issues,Slow Progress - Other Assessment Summary Assessment Progress report today. Pt had a flare up earlier this month after being in prone position during his massage appointment . Pt just recently recovered so I did not reassess his rehab goals. Pt did fairly well today and he was able to go into restaurants without AD yesterday. Pt stated I think im getting towards a new peak for my progress. Pt will cont benefit from skilled therapy to increase his lumbar mobility, stability and gait mechanics. Physical Therapy Plan Frequency and Duration Frequency of Treatment 2x/Week Duration of Treatment 12 weeks Plan of Care Start Date 09/16/20 Plan of Care End Date 12/15/20 Next Visit Focus/Plan Next Note Type Treatment Note Next Visit Plan stretch, hip extension, SL stability toe tap, step up and kymberly ttrianing
--- NOTE | 2020-11-11 10:33 | PT.OTN ---
Current Diagnoses Foot drop, right foot (11/11/20) Stiffness of unspecified joint, not elsewhere classified (11/11/20) Stiffness of right hip, not elsewhere classified (11/11/20) Stiffness of left hip, not elsewhere classified (11/11/20) Radiculopathy, lumbar region (11/11/20) Muscle weakness (generalized) (11/11/20) Other abnormalities of gait and mobility (11/11/20) Physical Therapy Treatment Note PT-OP-A Visit Information Start: 03/18/20 17:40 Freq: Status: Active Protocol: Document 11/11/20 09:46 HH (Rec: 11/11/20 10:32 HH [id number]) Out-Patient Physical Therapy Visit Information Visit Information Visit Type Treatment Note Visit Note pt came in without hiking sticsk Visit Start Time 09:48 Visit Stop Time 10:30 Total Visit Minutes 42 Visit Number 41 Number of CASHIER TICKET SELLING Visits 0 PT-OP-B Current Condition Start: 03/18/20 17:40 Freq: Status: Active Protocol: Document 03/18/20 14:30 DCW (Rec: 03/18/20 17:52 DCW [id number]) Current Condition History of Current Condition Onset Date Eight weeks Current Complaints weakness, gait difficulty, LBP , decreased activity tolerance History of Current Condition Pt is a 69 year old male presenting eight weeks s/p L4- 5 microdiscectomy. Pt reports he has been experiencing low back pain for years, but about 5 months ago, the pain began to rapidly accelerate, and he was found to have ruptured his L4-5 disc. Unfortunately, due to Covid-19 shutdowns, he was unable to get in to have anything done with it, until he finally underwent a microdiscectomy eight weeks ago. Pt reports that prior to the surgery, he was barely moving around, and feels like he has lost a lot of strength and mobility. Pt reports that he had been experiencing weakness and radicular pain down his left leg prior to surgery, however that has improved, and he now has significant right-sided leg weakness. Pt reports he did not use any assistive device prior to his disc rupture, but has pretty much been using a 4WW ever since. Pt is beginning to notice shoulder pain because he is bearing so much weight through his upper extremities. Reports he currently gets fatigued just walking across the room. Treatment Goals Patient/Caregiver Goals I really want to regain strength in my right leg. PT-OP-C Subjective Start: 03/18/20 17:40 Freq: Status: Active Protocol: Document 11/11/20 09:46 HH (Rec: 11/11/20 10:32 HH [id number]) OP-PT Subjective Patient Comments Patient Comments Im doing okay but i got stiff after last time. Patient Reported Progress Same PT-OP-E Functional Tests Start: 03/18/20 17:40 Freq: Status: Active Protocol: Document 06/27/20 14:11 HH (Rec: 06/27/20 14:13 HH [id number]) Functional Tests 6 Minute Walk Test Distance 816 Device Used hiking sticks Comments pt took a rest break at 1:55 remaining Other Single leg stance Name of Test pt cannot complete 360 turns Name of Test 4 second each direction Comment limping noted PT-OP-F Manual Assessment Start: 03/18/20 17:40 Freq: Status: Active Protocol: Document 03/18/20 14:30 DCW (Rec: 03/19/20 09:44 DCW [id number]) Manual Assessments Soft Tissue Assessment Soft Tissue Mobility Assessment Hypertonia and tenderness to palpation 2/4: Pain with wincing along bilateral piriformis, bilateral hamstring, bilateral psoas. Joint Mobility Assessment Joint Mobility Assessment Minimal mobility through lumbar spine, majority of flexion movement comes from hips. PT-OP-G Mobility & Gait Start: 03/18/20 17:40 Freq: Status: Active Protocol: Document 03/18/20 14:30 DCW (Rec: 03/19/20 09:44 DCW [id number]) OP Gait Assessment Gait Gait Assistance Required: Standby Assistance Distance (Feet) 178 Able to Maintain Weight Bearing Status Yes During Gait Assistive Devices Assistive Device Gait Belt,4 Wheeled Walker Orthotic/Prosthetic Devices or Brace: No Gait Deviations General Gait Pattern Antalgic,Ataxic,Decreased Stride Length,Decreased Feet Clearance,Flexed Trunk,Wide Based Gait Factors Limiting Gait Function Factors Limiting Gait Function Decreased Activity Tolerance, Decreased Strength,Limited Range of Motion,Pain PT-OP-K Range of Motion Start: 03/18/20 17:40 Freq: Status: Active Protocol: Document 03/18/20 14:30 DCW (Rec: 03/19/20 09:44 DCW [id number]) Lumbar Spine Range of Motion Lumbar Spine Active Degrees Testing Position Standing Flexion 20 Extension 10 ROM Limitations Soft Tissue Tightness,Bony Restriction,Muscle Weakness, Muscle Tone,Pain Comments When attempting to stand upright, pt is still flexed forward 10?, and then despite appearing to have good forward flexion, his lumbar spine only flexes to 20?, and the remainder of the movement comes from his hip. PT-OP-M Strength Start: 03/18/20 17:40 Freq: Status: Active Protocol: Document 03/18/20 14:30 DCW (Rec: 03/19/20 17:21 DCW [id number]) Hip Strength Hip Manual Muscle Testing Right Flexion (L2) 3+ Fair+ Abduction 4 Good Adduction 4 Good Left Flexion (L2) 4+ Good+ Abduction 4+ Good+ Adduction 4+ Good+ Knee Strength Knee Manual Muscle Testing Right Flexion (S2) 4+ Good+ Extension (L3) 4+ Good+ Left Flexion (S2) 4+ Good+ Extension (L3) 4+ Good+ Ankle/Foot Strength Ankle and Foot Manual Muscle Testing Right Dorsiflexion (L4) 3+ Fair+ Plantarflexion (S1) 4 Good Left Dorsiflexion (L4) 4+ Good+ Plantarflexion (S1) 4+ Good+ PT-OP-Q Treatments Start: 03/18/20 17:40 Freq: Status: Active Protocol: Document 11/11/20 09:46 HH (Rec: 11/11/20 10:32 HH [id number]) Therapeutic Exercises Supine Exercises knee to chest Reps/Minutes 10 sec hold x5 piriformis stretch Side bilateral Reps/Minutes 10 sec hold x5 HS stretch Side bilateral Reps/Minutes 10 sec hold x 5 bridging Side bilateral Reps/Minutes 10 x2 Standing Exercises crab walk Side bilateral Equipment Used red band at knees Reps/Minutes 20 ft x 8 squat Side bilateral Equipment Used red band Reps/Minutes 8 x2 Manual Therapy Treatment Soft Tissue Mobilization QL Mobilization Type Sustained Pressure,Trigger Point Release Intensity/Depth Moderate Body Position Sidelying Comments mild tone noted today at R QL but increased tone at glute med PT-OP-R Modalities Start: 03/18/20 17:40 Freq: Status: Active Protocol: Document 08/27/20 08:55 SP (Rec: 08/27/20 11:12 SP [id number]) Hot Pack/Cold Pack Treatment MHP LS Location B LS Patient Position Prone Treatment Duration (minutes) 10 Patient Tolerance Good Comments decrease LBP PT-OP-T Assessment and Plan Start: 03/18/20 17:40 Freq: Status: Active Protocol: Document 11/11/20 09:46 HH (Rec: 11/11/20 10:32 HH [id number]) Physical Therapy Assessment Goals stair climb Impairment pt needs B support for stair climb Short Term Goal (STG) 09/16 pt was able to toe tap on stairs w/o support for the past month but unable currently d/t recent flare up A P Manager Goal (LTG) pt will show improve single leg strength so he will be able to complete stair climb ( 3-5 steps) with a step to pattern without support. LTG Duration 8 weeks SL stance Impairment Pt is unable to complete SLS Short Term Goal (STG) 09/16/20 pt previously was able to hold up to 3 s but unable since this recent flare up pt will be able to complete SLS for 5s or more STG Duration 07/30/20 A P Manager Goal (LTG) pt will be able to complete SLS for 10s or more in order for him to amb / turn without excessive lateral weight shift . LTG Duration 8 weeks amb Impairment pt currently amb with 4WW at all times Short Term Goal (STG) 09/16/20 pt has been able to not use 4WW, but just w/o AD or hiking poles for mobility for the past 2 months. However , he started using 4WW d/t recent flare up pt will be able to amb without 4WW for household distance. STG Duration 6 weeks A P Manager Goal (LTG) 06/27 goal met pt will be able to amb without 4WW for community distance LTG Duration 12 weeks Two Impairment Pt ambulates 332' (1.43 ft/sec ) using a FWW during a Two Minute Walk Test Short Term Goal (STG) 06/27/20 Pt is able to complete 816' in 6 MWT with hiking poles. Pt took 1 break a between. Pt will be able to amb with LRAD to complete 6 MWT for 900 ft. STG Duration 07/30/20 Alf Goal (LTG) 12 weeks Pt to complete a six minute walk test without AD for 1000 ft. LTG Duration 8 weeks One Impairment Pt does not have an appropriate home exercise program Short Term Goal (STG) 05/20 cont in progress pt stated that he is not that compliant with HEP but HEP did help him Pt to be independent and compliant with an appropriate HEP STG Duration 06/19 Assessment Summary Assessment Pt is doing okay today. He does report of pain at L5 region during change of positions sometimes. Physical Therapy Plan Frequency and Duration Frequency of Treatment 2x/Week Duration of Treatment 12 weeks Plan of Care Start Date 09/16/20 Plan of Care End Date 12/15/20 Next Visit Focus/Plan Next Note Type Treatment Note Next Visit Plan stretch, hip extension, SL stability toe tap, step up and kymberly ttrianing
--- NOTE | 2020-11-14 10:32 | PT.OTN ---
Current Diagnoses Foot drop, right foot (11/14/20) Stiffness of unspecified joint, not elsewhere classified (11/14/20) Stiffness of right hip, not elsewhere classified (11/14/20) Stiffness of left hip, not elsewhere classified (11/14/20) Radiculopathy, lumbar region (11/14/20) Muscle weakness (generalized) (11/14/20) Other abnormalities of gait and mobility (11/14/20) Physical Therapy Treatment Note PT-OP-A Visit Information Start: 03/18/20 17:40 Freq: Status: Active Protocol: Document 11/14/20 09:41 HH (Rec: 11/14/20 10:32 HH [id number]) Out-Patient Physical Therapy Visit Information Visit Information Visit Type Treatment Note Visit Note pt came in with blanche weir Visit Start Time 09:46 Visit Stop Time 10:30 Total Visit Minutes 44 Visit Number 42 Number of SUPERVISOR OF OFFICIALS Visits 0 PT-OP-B Current Condition Start: 03/18/20 17:40 Freq: Status: Active Protocol: Document 03/18/20 14:30 DCW (Rec: 03/18/20 17:52 DCW [id number]) Current Condition History of Current Condition Onset Date Eight weeks Current Complaints weakness, gait difficulty, LBP , decreased activity tolerance History of Current Condition Pt is a 69 year old male presenting eight weeks s/p L4- 5 microdiscectomy. Pt reports he has been experiencing low back pain for years, but about 5 months ago, the pain began to rapidly accelerate, and he was found to have ruptured his L4-5 disc. Unfortunately, due to Covid-19 shutdowns, he was unable to get in to have anything done with it, until he finally underwent a microdiscectomy eight weeks ago. Pt reports that prior to the surgery, he was barely moving around, and feels like he has lost a lot of strength and mobility. Pt reports that he had been experiencing weakness and radicular pain down his left leg prior to surgery, however that has improved, and he now has significant right-sided leg weakness. Pt reports he did not use any assistive device prior to his disc rupture, but has pretty much been using a 4WW ever since. Pt is beginning to notice shoulder pain because he is bearing so much weight through his upper extremities. Reports he currently gets fatigued just walking across the room. Treatment Goals Patient/Caregiver Goals I really want to regain strength in my right leg. PT-OP-C Subjective Start: 03/18/20 17:40 Freq: Status: Active Protocol: Document 11/14/20 09:41 HH (Rec: 11/14/20 10:32 HH [id number]) OP-PT Subjective Patient Comments Patient Comments PT-OP-E Functional Tests Start: 03/18/20 17:40 Freq: Status: Active Protocol: Document 06/27/20 14:11 HH (Rec: 06/27/20 14:13 HH [id number]) Functional Tests 6 Minute Walk Test Distance 816 Device Used hiking sticks Comments pt took a rest break at 1:55 remaining Other Single leg stance Name of Test pt cannot complete 360 turns Name of Test 4 second each direction Comment limping noted PT-OP-F Manual Assessment Start: 03/18/20 17:40 Freq: Status: Active Protocol: Document 03/18/20 14:30 DCW (Rec: 03/19/20 09:44 DCW [id number]) Manual Assessments Soft Tissue Assessment Soft Tissue Mobility Assessment Hypertonia and tenderness to palpation 2/4: Pain with wincing along bilateral piriformis, bilateral hamstring, bilateral psoas. Joint Mobility Assessment Joint Mobility Assessment Minimal mobility through lumbar spine, majority of flexion movement comes from hips. PT-OP-G Mobility & Gait Start: 03/18/20 17:40 Freq: Status: Active Protocol: Document 03/18/20 14:30 DCW (Rec: 03/19/20 09:44 DCW [id number]) OP Gait Assessment Gait Gait Assistance Required: Standby Assistance Distance (Feet) 178 Able to Maintain Weight Bearing Status Yes During Gait Assistive Devices Assistive Device Gait Belt,4 Wheeled Walker Orthotic/Prosthetic Devices or Brace: No Gait Deviations General Gait Pattern Antalgic,Ataxic,Decreased Stride Length,Decreased Feet Clearance,Flexed Trunk,Wide Based Gait Factors Limiting Gait Function Factors Limiting Gait Function Decreased Activity Tolerance, Decreased Strength,Limited Range of Motion,Pain PT-OP-K Range of Motion Start: 03/18/20 17:40 Freq: Status: Active Protocol: Document 03/18/20 14:30 DCW (Rec: 03/19/20 09:44 DCW [id number]) Lumbar Spine Range of Motion Lumbar Spine Active Degrees Testing Position Standing Flexion 20 Extension 10 ROM Limitations Soft Tissue Tightness,Bony Restriction,Muscle Weakness, Muscle Tone,Pain Comments When attempting to stand upright, pt is still flexed forward 10?, and then despite appearing to have good forward flexion, his lumbar spine only flexes to 20?, and the remainder of the movement comes from his hip. PT-OP-M Strength Start: 03/18/20 17:40 Freq: Status: Active Protocol: Document 03/18/20 14:30 DCW (Rec: 03/19/20 17:21 DCW [id number]) Hip Strength Hip Manual Muscle Testing Right Flexion (L2) 3+ Fair+ Abduction 4 Good Adduction 4 Good Left Flexion (L2) 4+ Good+ Abduction 4+ Good+ Adduction 4+ Good+ Knee Strength Knee Manual Muscle Testing Right Flexion (S2) 4+ Good+ Extension (L3) 4+ Good+ Left Flexion (S2) 4+ Good+ Extension (L3) 4+ Good+ Ankle/Foot Strength Ankle and Foot Manual Muscle Testing Right Dorsiflexion (L4) 3+ Fair+ Plantarflexion (S1) 4 Good Left Dorsiflexion (L4) 4+ Good+ Plantarflexion (S1) 4+ Good+ PT-OP-Q Treatments Start: 03/18/20 17:40 Freq: Status: Active Protocol: Document 11/14/20 09:41 HH (Rec: 11/14/20 10:32 HH [id number]) Cardio Equipment Recumbent Stepper (Sci-Fit) Duration (Minutes) 8 Resistance 2 Therapeutic Exercises Supine Exercises knee to chest Reps/Minutes 10 sec hold x5 piriformis stretch Side bilateral Reps/Minutes 10 sec hold x5 Standing Exercises crab walk Side bilateral Equipment Used red band at knees Reps/Minutes 20 ft x 8 toe tap Side bilateral Reps/Minutes 10 each leg x 2 squat Side bilateral Equipment Used red band Reps/Minutes 8 x2 Gait Training Gait Activity ground level Device Used no AD Level of Assistance SBA Surface ground level Distance/Duration 200 ft x 1 Manual Therapy Treatment Soft Tissue Mobilization QL Mobilization Type Sustained Pressure,Trigger Point Release Intensity/Depth Moderate Body Position Sidelying Comments decreased noted today at R QL but increased tone at glute med PT-OP-R Modalities Start: 03/18/20 17:40 Freq: Status: Active Protocol: Document 08/27/20 08:55 SP (Rec: 08/27/20 11:12 SP [id number]) Hot Pack/Cold Pack Treatment MHP LS Location B LS Patient Position Prone Treatment Duration (minutes) 10 Patient Tolerance Good Comments decrease LBP PT-OP-T Assessment and Plan Start: 03/18/20 17:40 Freq: Status: Active Protocol: Document 11/14/20 09:41 HH (Rec: 11/14/20 10:32 HH [id number]) Physical Therapy Assessment Goals stair climb Impairment pt needs B support for stair climb Short Term Goal (STG) 09/16 pt was able to toe tap on stairs w/o support for the past month but unable currently d/t recent flare up Halfway Goal (LTG) pt will show improve single leg strength so he will be able to complete stair climb ( 3-5 steps) with a step to pattern without support. LTG Duration 8 weeks SL stance Impairment Pt is unable to complete SLS Short Term Goal (STG) 09/16/20 pt previously was able to hold up to 3 s but unable since this recent flare up pt will be able to complete SLS for 5s or more STG Duration 07/30/20 Halfway Goal (LTG) pt will be able to complete SLS for 10s or more in order for him to amb / turn without excessive lateral weight shift . LTG Duration 8 weeks amb Impairment pt currently amb with 4WW at all times Short Term Goal (STG) 09/16/20 pt has been able to not use 4WW, but just w/o AD or hiking poles for mobility for the past 2 months. However , he started using 4WW d/t recent flare up pt will be able to amb without 4WW for household distance. STG Duration 6 weeks Halfway Goal (LTG) 06/27 goal met pt will be able to amb without 4WW for community distance LTG Duration 12 weeks Two Impairment Pt ambulates 332' (1.43 ft/sec ) using a FWW during a Two Minute Walk Test Short Term Goal (STG) 06/27/20 Pt is able to complete 816' in 6 MWT with hiking poles. Pt took 1 break a between. Pt will be able to amb with LRAD to complete 6 MWT for 900 ft. STG Duration 07/30/20 Halfway Goal (LTG) 12 weeks Pt to complete a six minute walk test without AD for 1000 ft. LTG Duration 8 weeks One Impairment Pt does not have an appropriate home exercise program Short Term Goal (STG) 05/20 cont in progress pt stated that he is not that compliant with HEP but HEP did help him Pt to be independent and compliant with an appropriate HEP STG Duration 06/19 Assessment Summary Assessment Pt nakul session well today. however, pt tends to feel pain during STS movement and he has to complete it slowly. Will cont to focus overall trunk endurance and strength training. Physical Therapy Plan Frequency and Duration Frequency of Treatment 2x/Week Duration of Treatment 12 weeks Plan of Care Start Date 09/16/20 Plan of Care End Date 12/15/20 Next Visit Focus/Plan Next Note Type Treatment Note Next Visit Plan stretch, hip extension, SL stability toe tap, step up and kymberly ttrianing
--- NOTE | 2020-12-05 10:34 | PT.OTN ---
Current Diagnoses Foot drop, right foot (12/05/20) Stiffness of unspecified joint, not elsewhere classified (12/05/20) Stiffness of right hip, not elsewhere classified (12/05/20) Stiffness of left hip, not elsewhere classified (12/05/20) Radiculopathy, lumbar region (12/05/20) Muscle weakness (generalized) (12/05/20) Other abnormalities of gait and mobility (12/05/20) Physical Therapy Treatment Note PT-OP-A Visit Information Start: 03/18/20 17:40 Freq: Status: Active Protocol: Document 12/05/20 09:49 HH (Rec: 12/05/20 10:34 HH [id number]) Out-Patient Physical Therapy Visit Information Visit Information Visit Type Treatment Note Visit Note pt came in with blanche weir Visit Start Time 09:48 Visit Stop Time 10:30 Total Visit Minutes 42 Visit Number 43 Number of TUNNEL HEADING INSPECTOR Visits 0 PT-OP-B Current Condition Start: 03/18/20 17:40 Freq: Status: Active Protocol: Document 03/18/20 14:30 DCW (Rec: 03/18/20 17:52 DCW [id number]) Current Condition History of Current Condition Onset Date Eight weeks Current Complaints weakness, gait difficulty, LBP , decreased activity tolerance History of Current Condition Pt is a 69 year old male presenting eight weeks s/p L4- 5 microdiscectomy. Pt reports he has been experiencing low back pain for years, but about 5 months ago, the pain began to rapidly accelerate, and he was found to have ruptured his L4-5 disc. Unfortunately, due to Covid-19 shutdowns, he was unable to get in to have anything done with it, until he finally underwent a microdiscectomy eight weeks ago. Pt reports that prior to the surgery, he was barely moving around, and feels like he has lost a lot of strength and mobility. Pt reports that he had been experiencing weakness and radicular pain down his left leg prior to surgery, however that has improved, and he now has significant right-sided leg weakness. Pt reports he did not use any assistive device prior to his disc rupture, but has pretty much been using a 4WW ever since. Pt is beginning to notice shoulder pain because he is bearing so much weight through his upper extremities. Reports he currently gets fatigued just walking across the room. Treatment Goals Patient/Caregiver Goals I really want to regain strength in my right leg. PT-OP-C Subjective Start: 03/18/20 17:40 Freq: Status: Active Protocol: Document 12/05/20 09:49 HH (Rec: 12/05/20 10:34 HH [id number]) OP-PT Subjective Patient Comments Patient Comments I just came back from my trip to [place]. And i was doing pretty good. Patient Reported Progress Improving PT-OP-E Functional Tests Start: 03/18/20 17:40 Freq: Status: Active Protocol: Document 06/27/20 14:11 HH (Rec: 06/27/20 14:13 HH [id number]) Functional Tests 6 Minute Walk Test Distance 816 Device Used hiking sticks Comments pt took a rest break at 1:55 remaining Other Single leg stance Name of Test pt cannot complete 360 turns Name of Test 4 second each direction Comment limping noted PT-OP-F Manual Assessment Start: 03/18/20 17:40 Freq: Status: Active Protocol: Document 03/18/20 14:30 DCW (Rec: 03/19/20 09:44 DCW [id number]) Manual Assessments Soft Tissue Assessment Soft Tissue Mobility Assessment Hypertonia and tenderness to palpation 2/4: Pain with wincing along bilateral piriformis, bilateral hamstring, bilateral psoas. Joint Mobility Assessment Joint Mobility Assessment Minimal mobility through lumbar spine, majority of flexion movement comes from hips. PT-OP-G Mobility & Gait Start: 03/18/20 17:40 Freq: Status: Active Protocol: Document 03/18/20 14:30 DCW (Rec: 03/19/20 09:44 DCW [id number]) OP Gait Assessment Gait Gait Assistance Required: Standby Assistance Distance (Feet) 178 Able to Maintain Weight Bearing Status Yes During Gait Assistive Devices Assistive Device Gait Belt,4 Wheeled Walker Orthotic/Prosthetic Devices or Brace: No Gait Deviations General Gait Pattern Antalgic,Ataxic,Decreased Stride Length,Decreased Feet Clearance,Flexed Trunk,Wide Based Gait Factors Limiting Gait Function Factors Limiting Gait Function Decreased Activity Tolerance, Decreased Strength,Limited Range of Motion,Pain PT-OP-K Range of Motion Start: 03/18/20 17:40 Freq: Status: Active Protocol: Document 03/18/20 14:30 DCW (Rec: 03/19/20 09:44 DCW [id number]) Lumbar Spine Range of Motion Lumbar Spine Active Degrees Testing Position Standing Flexion 20 Extension 10 ROM Limitations Soft Tissue Tightness,Bony Restriction,Muscle Weakness, Muscle Tone,Pain Comments When attempting to stand upright, pt is still flexed forward 10?, and then despite appearing to have good forward flexion, his lumbar spine only flexes to 20?, and the remainder of the movement comes from his hip. PT-OP-M Strength Start: 03/18/20 17:40 Freq: Status: Active Protocol: Document 03/18/20 14:30 DCW (Rec: 03/19/20 17:21 DCW [id number]) Hip Strength Hip Manual Muscle Testing Right Flexion (L2) 3+ Fair+ Abduction 4 Good Adduction 4 Good Left Flexion (L2) 4+ Good+ Abduction 4+ Good+ Adduction 4+ Good+ Knee Strength Knee Manual Muscle Testing Right Flexion (S2) 4+ Good+ Extension (L3) 4+ Good+ Left Flexion (S2) 4+ Good+ Extension (L3) 4+ Good+ Ankle/Foot Strength Ankle and Foot Manual Muscle Testing Right Dorsiflexion (L4) 3+ Fair+ Plantarflexion (S1) 4 Good Left Dorsiflexion (L4) 4+ Good+ Plantarflexion (S1) 4+ Good+ PT-OP-Q Treatments Start: 03/18/20 17:40 Freq: Status: Active Protocol: Document 12/05/20 09:49 HH (Rec: 12/05/20 10:34 HH [id number]) Therapeutic Exercises Supine Exercises knee to chest Reps/Minutes 10 sec hold x5 piriformis stretch Side bilateral Reps/Minutes 10 sec hold x5 HS stretch Side bilateral Reps/Minutes 10 sec hold x 5 Sitting Exercises seated reach Sitting Exercise Name toe touch Reps/Minutes 8x2 seated trunk flexion and extension Equipment Used with level 4 band Reps/Minutes 8 x2 Comments for HEP Standing Exercises crab walk Side bilateral Equipment Used red band at knees Reps/Minutes 20 ft x 8 Manual Therapy Treatment Soft Tissue Mobilization QL Mobilization Type Sustained Pressure,Trigger Point Release Intensity/Depth Moderate Body Position Sidelying Comments no discomfort noted. PT-OP-R Modalities Start: 03/18/20 17:40 Freq: Status: Active Protocol: Document 08/27/20 08:55 SP (Rec: 08/27/20 11:12 SP [id number]) Hot Pack/Cold Pack Treatment MHP LS Location B LS Patient Position Prone Treatment Duration (minutes) 10 Patient Tolerance Good Comments decrease LBP PT-OP-T Assessment and Plan Start: 03/18/20 17:40 Freq: Status: Active Protocol: Document 12/05/20 09:49 HH (Rec: 12/05/20 10:34 HH [id number]) Physical Therapy Assessment Goals stair climb Impairment pt needs B support for stair climb Short Term Goal (STG) 09/16 pt was able to toe tap on stairs w/o support for the past month but unable currently d/t recent flare up Care Home Goal (LTG) pt will show improve single leg strength so he will be able to complete stair climb ( 3-5 steps) with a step to pattern without support. LTG Duration 8 weeks SL stance Impairment Pt is unable to complete SLS Short Term Goal (STG) 09/16/20 pt previously was able to hold up to 3 s but unable since this recent flare up pt will be able to complete SLS for 5s or more STG Duration 07/30/20 Care Home Goal (LTG) pt will be able to complete SLS for 10s or more in order for him to amb / turn without excessive lateral weight shift . LTG Duration 8 weeks amb Impairment pt currently amb with 4WW at all times Short Term Goal (STG) 09/16/20 pt has been able to not use 4WW, but just w/o AD or hiking poles for mobility for the past 2 months. However , he started using 4WW d/t recent flare up pt will be able to amb without 4WW for household distance. STG Duration 6 weeks Care Home Goal (LTG) 06/27 goal met pt will be able to amb without 4WW for community distance LTG Duration 12 weeks Four Impairment Significant limitations in lumbar ROM (10?-20?) Short Term Goal (STG) 05/20 pt is able to complete active trunk flexion and extension with mild discomfort. Cont to have difficulty with isolated lumbar flexion. Care Home Goal (LTG) 06/27 goal met pt is able to complete floor touch with full lumbar flexion LTG Duration 05/20/20 Three Impairment Pt demonstrates right foot drop during gait Short Term Goal (STG) 05/20 goal met Pt stated he doesnt have R foot drop at this point and strength is at 4/5, R hip 4- to 4/5. Produce Assistant Goal (LTG) 09/16/20 pt regain full ROM and strength at R ankle DF/PF LTG Duration 06/30/20 Two Impairment Pt ambulates 332' (1.43 ft/sec ) using a FWW during a Two Minute Walk Test Short Term Goal (STG) 06/27/20 Pt is able to complete 816' in 6 MWT with hiking poles. Pt took 1 break a between. Pt will be able to amb with LRAD to complete 6 MWT for 900 ft. STG Duration 07/30/20 Produce Assistant Goal (LTG) 12 weeks Pt to complete a six minute walk test without AD for 1000 ft. LTG Duration 8 weeks One Impairment Pt does not have an appropriate home exercise program Short Term Goal (STG) 05/20 cont in progress pt stated that he is not that compliant with HEP but HEP did help him Pt to be independent and compliant with an appropriate HEP STG Duration 06/19 Assessment Summary Assessment pt came back from a 3 weeks vacation and he hasnt had any flare ups. Pt nakul session well today without much stiffness . Recommended pt to participate pool fitness class to increase his trunk endurance. Added seated trunk extension today Physical Therapy Plan Frequency and Duration Frequency of Treatment 2x/Week Duration of Treatment 12 weeks Plan of Care Start Date 09/16/20 Plan of Care End Date 12/15/20 Therapeutic Interventions Therapeutic Interventions Balance Training,Gait Training ,Home Exercise Program,Joint Mobilizations,Manual Therapy, Neuromuscular Re-education, Patient/Caregiver Education, Self-Care/Home Management,Soft Tissue Mobilization, Therapeutic Activities, Therapeutic Exercises Modalities Cold Pack/Ice Massage,Electric Stimulation,Hot Packs, Ultrasound Next Visit Focus/Plan Next Note Type Treatment Note Next Visit Plan stretch, hip extension, SL stability toe tap, step up and kymberly ttrianing
--- NOTE | 2020-12-09 10:36 | PT.OTN ---
Current Diagnoses Foot drop, right foot (12/09/20) Stiffness of unspecified joint, not elsewhere classified (12/09/20) Stiffness of right hip, not elsewhere classified (12/09/20) Stiffness of left hip, not elsewhere classified (12/09/20) Radiculopathy, lumbar region (12/09/20) Muscle weakness (generalized) (12/09/20) Other abnormalities of gait and mobility (12/09/20) Physical Therapy Treatment Note PT-OP-A Visit Information Start: 03/18/20 17:40 Freq: Status: Active Protocol: Document 12/09/20 09:44 HH (Rec: 12/09/20 10:36 HH [id number]) Out-Patient Physical Therapy Visit Information Visit Information Visit Type Treatment Note Visit Note pt came in with blanche weir Visit Start Time 09:47 Visit Stop Time 10:30 Total Visit Minutes 43 Visit Number 44 Number of FIELD SALES TRAINER Visits 0 PT-OP-B Current Condition Start: 03/18/20 17:40 Freq: Status: Active Protocol: Document 03/18/20 14:30 DCW (Rec: 03/18/20 17:52 DCW [id number]) Current Condition History of Current Condition Onset Date Eight weeks Current Complaints weakness, gait difficulty, LBP , decreased activity tolerance History of Current Condition Pt is a 69 year old male presenting eight weeks s/p L4- 5 microdiscectomy. Pt reports he has been experiencing low back pain for years, but about 5 months ago, the pain began to rapidly accelerate, and he was found to have ruptured his L4-5 disc. Unfortunately, due to Covid-19 shutdowns, he was unable to get in to have anything done with it, until he finally underwent a microdiscectomy eight weeks ago. Pt reports that prior to the surgery, he was barely moving around, and feels like he has lost a lot of strength and mobility. Pt reports that he had been experiencing weakness and radicular pain down his left leg prior to surgery, however that has improved, and he now has significant right-sided leg weakness. Pt reports he did not use any assistive device prior to his disc rupture, but has pretty much been using a 4WW ever since. Pt is beginning to notice shoulder pain because he is bearing so much weight through his upper extremities. Reports he currently gets fatigued just walking across the room. Treatment Goals Patient/Caregiver Goals I really want to regain strength in my right leg. PT-OP-C Subjective Start: 03/18/20 17:40 Freq: Status: Active Protocol: Document 12/09/20 09:44 HH (Rec: 12/09/20 10:36 HH [id number]) OP-PT Subjective Patient Comments Patient Comments Im doing okay from last visit but i got stiff and sore after playing with my granddaughters this weekend. Im moving to a motel for a month d/t construction at my house so i couldnt do exercises. Patient Reported Progress Same PT-OP-E Functional Tests Start: 03/18/20 17:40 Freq: Status: Active Protocol: Document 06/27/20 14:11 HH (Rec: 06/27/20 14:13 HH [id number]) Functional Tests 6 Minute Walk Test Distance 816 Device Used hiking sticks Comments pt took a rest break at 1:55 remaining Other Single leg stance Name of Test pt cannot complete 360 turns Name of Test 4 second each direction Comment limping noted PT-OP-F Manual Assessment Start: 03/18/20 17:40 Freq: Status: Active Protocol: Document 03/18/20 14:30 DCW (Rec: 03/19/20 09:44 DCW [id number]) Manual Assessments Soft Tissue Assessment Soft Tissue Mobility Assessment Hypertonia and tenderness to palpation 2/4: Pain with wincing along bilateral piriformis, bilateral hamstring, bilateral psoas. Joint Mobility Assessment Joint Mobility Assessment Minimal mobility through lumbar spine, majority of flexion movement comes from hips. PT-OP-G Mobility & Gait Start: 03/18/20 17:40 Freq: Status: Active Protocol: Document 03/18/20 14:30 DCW (Rec: 03/19/20 09:44 DCW [id number]) OP Gait Assessment Gait Gait Assistance Required: Standby Assistance Distance (Feet) 178 Able to Maintain Weight Bearing Status Yes During Gait Assistive Devices Assistive Device Gait Belt,4 Wheeled Walker Orthotic/Prosthetic Devices or Brace: No Gait Deviations General Gait Pattern Antalgic,Ataxic,Decreased Stride Length,Decreased Feet Clearance,Flexed Trunk,Wide Based Gait Factors Limiting Gait Function Factors Limiting Gait Function Decreased Activity Tolerance, Decreased Strength,Limited Range of Motion,Pain PT-OP-K Range of Motion Start: 03/18/20 17:40 Freq: Status: Active Protocol: Document 03/18/20 14:30 DCW (Rec: 03/19/20 09:44 DCW [id number]) Lumbar Spine Range of Motion Lumbar Spine Active Degrees Testing Position Standing Flexion 20 Extension 10 ROM Limitations Soft Tissue Tightness,Bony Restriction,Muscle Weakness, Muscle Tone,Pain Comments When attempting to stand upright, pt is still flexed forward 10?, and then despite appearing to have good forward flexion, his lumbar spine only flexes to 20?, and the remainder of the movement comes from his hip. PT-OP-M Strength Start: 03/18/20 17:40 Freq: Status: Active Protocol: Document 03/18/20 14:30 DCW (Rec: 03/19/20 17:21 DCW [id number]) Hip Strength Hip Manual Muscle Testing Right Flexion (L2) 3+ Fair+ Abduction 4 Good Adduction 4 Good Left Flexion (L2) 4+ Good+ Abduction 4+ Good+ Adduction 4+ Good+ Knee Strength Knee Manual Muscle Testing Right Flexion (S2) 4+ Good+ Extension (L3) 4+ Good+ Left Flexion (S2) 4+ Good+ Extension (L3) 4+ Good+ Ankle/Foot Strength Ankle and Foot Manual Muscle Testing Right Dorsiflexion (L4) 3+ Fair+ Plantarflexion (S1) 4 Good Left Dorsiflexion (L4) 4+ Good+ Plantarflexion (S1) 4+ Good+ PT-OP-Q Treatments Start: 03/18/20 17:40 Freq: Status: Active Protocol: Document 12/09/20 09:44 HH (Rec: 12/09/20 10:36 HH [id number]) Therapeutic Exercises Supine Exercises piriformis stretch Side bilateral Reps/Minutes 10 sec hold x5 HS stretch Side bilateral Reps/Minutes 10 sec hold x 5 bridging Side bilateral Reps/Minutes 10 x2 Sitting Exercises seated reach Sitting Exercise Name toe touch Reps/Minutes 8x2 seated trunk flexion and extension Equipment Used with level 4 band Reps/Minutes 8 x2 Comments for HEP Standing Exercises crab walk Side bilateral Equipment Used red band at knees Reps/Minutes 20 ft x 8 standing hip abduction Side bilateral Reps/Minutes 8 x2 squat Standing Exercise Name mini squat Side bilateral Equipment Used yellow band Reps/Minutes 8 x2 PT-OP-R Modalities Start: 03/18/20 17:40 Freq: Status: Active Protocol: Document 08/27/20 08:55 SP (Rec: 08/27/20 11:12 SP [id number]) Hot Pack/Cold Pack Treatment MHP LS Location B LS Patient Position Prone Treatment Duration (minutes) 10 Patient Tolerance Good Comments decrease LBP PT-OP-T Assessment and Plan Start: 03/18/20 17:40 Freq: Status: Active Protocol: Document 12/09/20 09:44 HH (Rec: 12/09/20 10:36 HH [id number]) Physical Therapy Assessment Goals stair climb Impairment pt needs B support for stair climb Short Term Goal (STG) 09/16 pt was able to toe tap on stairs w/o support for the past month but unable currently d/t recent flare up Mcc Goal (LTG) pt will show improve single leg strength so he will be able to complete stair climb ( 3-5 steps) with a step to pattern without support. LTG Duration 8 weeks SL stance Impairment Pt is unable to complete SLS Short Term Goal (STG) 09/16/20 pt previously was able to hold up to 3 s but unable since this recent flare up pt will be able to complete SLS for 5s or more STG Duration 07/30/20 Mcc Goal (LTG) pt will be able to complete SLS for 10s or more in order for him to amb / turn without excessive lateral weight shift . LTG Duration 8 weeks amb Impairment pt currently amb with 4WW at all times Short Term Goal (STG) 09/16/20 pt has been able to not use 4WW, but just w/o AD or hiking poles for mobility for the past 2 months. However , he started using 4WW d/t recent flare up pt will be able to amb without 4WW for household distance. STG Duration 6 weeks Outdoor Power Equipment Mechanic Goal (LTG) 06/27 goal met pt will be able to amb without 4WW for community distance LTG Duration 12 weeks Four Impairment Significant limitations in lumbar ROM (10?-20?) Short Term Goal (STG) 05/20 pt is able to complete active trunk flexion and extension with mild discomfort. Cont to have difficulty with isolated lumbar flexion. Outdoor Power Equipment Mechanic Goal (LTG) 06/27 goal met pt is able to complete floor touch with full lumbar flexion LTG Duration 05/20/20 Three Impairment Pt demonstrates right foot drop during gait Short Term Goal (STG) 05/20 goal met Pt stated he doesnt have R foot drop at this point and strength is at 4/5, R hip 4- to 4/5. Outdoor Power Equipment Mechanic Goal (LTG) 09/16/20 pt regain full ROM and strength at R ankle DF/PF LTG Duration 06/30/20 Two Impairment Pt ambulates 332' (1.43 ft/sec ) using a FWW during a Two Minute Walk Test Short Term Goal (STG) 06/27/20 Pt is able to complete 816' in 6 MWT with hiking poles. Pt took 1 break a between. Pt will be able to amb with LRAD to complete 6 MWT for 900 ft. STG Duration 07/30/20 Outdoor Power Equipment Mechanic Goal (LTG) 12 weeks Pt to complete a six minute walk test without AD for 1000 ft. LTG Duration 8 weeks One Impairment Pt does not have an appropriate home exercise program Short Term Goal (STG) 05/20 cont in progress pt stated that he is not that compliant with HEP but HEP did help him Pt to be independent and compliant with an appropriate HEP STG Duration 06/19 Assessment Summary Assessment Pt nakul session okay. He cont to have pain during transitional movements such as sit to stand. Educated pt to practice trunk strengthening and mini squat exercises. Physical Therapy Plan Frequency and Duration Frequency of Treatment 2x/Week Duration of Treatment 12 weeks Plan of Care Start Date 09/16/20 Plan of Care End Date 12/15/20 Therapeutic Interventions Therapeutic Interventions Balance Training,Gait Training ,Home Exercise Program,Joint Mobilizations,Manual Therapy, Neuromuscular Re-education, Patient/Caregiver Education, Self-Care/Home Management,Soft Tissue Mobilization, Therapeutic Activities, Therapeutic Exercises Modalities Cold Pack/Ice Massage,Electric Stimulation,Hot Packs, Ultrasound Next Visit Focus/Plan Next Note Type Treatment Note Next Visit Plan stretch, hip extension, SL stability toe tap, step up and kymberly ttrianing
--- NOTE | 2020-12-12 10:32 | PT.OTN ---
Current Diagnoses Foot drop, right foot (12/12/20) Stiffness of unspecified joint, not elsewhere classified (12/12/20) Stiffness of right hip, not elsewhere classified (12/12/20) Stiffness of left hip, not elsewhere classified (12/12/20) Radiculopathy, lumbar region (12/12/20) Muscle weakness (generalized) (12/12/20) Other abnormalities of gait and mobility (12/12/20) Physical Therapy Treatment Note PT-OP-A Visit Information Start: 03/18/20 17:40 Freq: Status: Active Protocol: Document 12/12/20 09:52 HH (Rec: 12/12/20 10:32 HH [id number]) Out-Patient Physical Therapy Visit Information Visit Information Visit Type Treatment Note Visit Note pt came in without AD Visit Start Time 09:47 Visit Stop Time 10:30 Total Visit Minutes 43 Visit Number 45 Number of NETWORK CONTROL SUPERVISOR Visits 0 PT-OP-B Current Condition Start: 03/18/20 17:40 Freq: Status: Active Protocol: Document 03/18/20 14:30 DCW (Rec: 03/18/20 17:52 DCW [id number]) Current Condition History of Current Condition Onset Date Eight weeks Current Complaints weakness, gait difficulty, LBP , decreased activity tolerance History of Current Condition Pt is a 69 year old male presenting eight weeks s/p L4- 5 microdiscectomy. Pt reports he has been experiencing low back pain for years, but about 5 months ago, the pain began to rapidly accelerate, and he was found to have ruptured his L4-5 disc. Unfortunately, due to Covid-19 shutdowns, he was unable to get in to have anything done with it, until he finally underwent a microdiscectomy eight weeks ago. Pt reports that prior to the surgery, he was barely moving around, and feels like he has lost a lot of strength and mobility. Pt reports that he had been experiencing weakness and radicular pain down his left leg prior to surgery, however that has improved, and he now has significant right-sided leg weakness. Pt reports he did not use any assistive device prior to his disc rupture, but has pretty much been using a 4WW ever since. Pt is beginning to notice shoulder pain because he is bearing so much weight through his upper extremities. Reports he currently gets fatigued just walking across the room. Treatment Goals Patient/Caregiver Goals I really want to regain strength in my right leg. PT-OP-C Subjective Start: 03/18/20 17:40 Freq: Status: Active Protocol: Document 12/12/20 09:52 HH (Rec: 12/12/20 10:32 HH [id number]) OP-PT Subjective Patient Comments Patient Comments I got sore and stiff from last visit. Living in the motel doesnt help as well cause i couldnt get comfortable. Patient Reported Progress Same PT-OP-E Functional Tests Start: 03/18/20 17:40 Freq: Status: Active Protocol: Document 06/27/20 14:11 HH (Rec: 06/27/20 14:13 HH [id number]) Functional Tests 6 Minute Walk Test Distance 816 Device Used hiking sticks Comments pt took a rest break at 1:55 remaining Other Single leg stance Name of Test pt cannot complete 360 turns Name of Test 4 second each direction Comment limping noted PT-OP-F Manual Assessment Start: 03/18/20 17:40 Freq: Status: Active Protocol: Document 03/18/20 14:30 DCW (Rec: 03/19/20 09:44 DCW [id number]) Manual Assessments Soft Tissue Assessment Soft Tissue Mobility Assessment Hypertonia and tenderness to palpation 2/4: Pain with wincing along bilateral piriformis, bilateral hamstring, bilateral psoas. Joint Mobility Assessment Joint Mobility Assessment Minimal mobility through lumbar spine, majority of flexion movement comes from hips. PT-OP-G Mobility & Gait Start: 03/18/20 17:40 Freq: Status: Active Protocol: Document 03/18/20 14:30 DCW (Rec: 03/19/20 09:44 DCW [id number]) OP Gait Assessment Gait Gait Assistance Required: Standby Assistance Distance (Feet) 178 Able to Maintain Weight Bearing Status Yes During Gait Assistive Devices Assistive Device Gait Belt,4 Wheeled Walker Orthotic/Prosthetic Devices or Brace: No Gait Deviations General Gait Pattern Antalgic,Ataxic,Decreased Stride Length,Decreased Feet Clearance,Flexed Trunk,Wide Based Gait Factors Limiting Gait Function Factors Limiting Gait Function Decreased Activity Tolerance, Decreased Strength,Limited Range of Motion,Pain PT-OP-K Range of Motion Start: 03/18/20 17:40 Freq: Status: Active Protocol: Document 03/18/20 14:30 DCW (Rec: 03/19/20 09:44 DCW [id number]) Lumbar Spine Range of Motion Lumbar Spine Active Degrees Testing Position Standing Flexion 20 Extension 10 ROM Limitations Soft Tissue Tightness,Bony Restriction,Muscle Weakness, Muscle Tone,Pain Comments When attempting to stand upright, pt is still flexed forward 10?, and then despite appearing to have good forward flexion, his lumbar spine only flexes to 20?, and the remainder of the movement comes from his hip. PT-OP-M Strength Start: 03/18/20 17:40 Freq: Status: Active Protocol: Document 03/18/20 14:30 DCW (Rec: 03/19/20 17:21 DCW [id number]) Hip Strength Hip Manual Muscle Testing Right Flexion (L2) 3+ Fair+ Abduction 4 Good Adduction 4 Good Left Flexion (L2) 4+ Good+ Abduction 4+ Good+ Adduction 4+ Good+ Knee Strength Knee Manual Muscle Testing Right Flexion (S2) 4+ Good+ Extension (L3) 4+ Good+ Left Flexion (S2) 4+ Good+ Extension (L3) 4+ Good+ Ankle/Foot Strength Ankle and Foot Manual Muscle Testing Right Dorsiflexion (L4) 3+ Fair+ Plantarflexion (S1) 4 Good Left Dorsiflexion (L4) 4+ Good+ Plantarflexion (S1) 4+ Good+ PT-OP-Q Treatments Start: 03/18/20 17:40 Freq: Status: Active Protocol: Document 12/12/20 09:52 HH (Rec: 12/12/20 10:32 HH [id number]) Cardio Equipment Bicycle (Upright) Duration (Minutes) 4 Resistance 5 Gym Equipment Shuttle Recovery B squat Resistance 75# Shuttle Recovery Platform Stable Reps/Time 10 uni squat Resistance #75 Shuttle Recovery Platform Stable Reps/Time 10x 2 Therapeutic Exercises Supine Exercises knee to chest Reps/Minutes 10 sec hold x5 Sitting Exercises trunk isometrics Sitting Exercise Name extension and flexion in seated position Side bilateral Reps/Minutes 10 sec x 5 x 2 Comments against PT resistance seated reaching Sitting Exercise Name able to reach floor Side bilateral Reps/Minutes 10 x2 Comments slower today Standing Exercises trunk flexion Standing Exercise Name pull to stretch by pulling from grab bar Side bilateral Equipment Used grab bar Manual Therapy Treatment Soft Tissue Mobilization QL Mobilization Type Sustained Pressure,Trigger Point Release Intensity/Depth Moderate Body Position Sidelying Comments increased tonicity noted today . PT-OP-R Modalities Start: 03/18/20 17:40 Freq: Status: Active Protocol: Document 08/27/20 08:55 SP (Rec: 08/27/20 11:12 SP [id number]) Hot Pack/Cold Pack Treatment MHP LS Location B LS Patient Position Prone Treatment Duration (minutes) 10 Patient Tolerance Good Comments decrease LBP PT-OP-T Assessment and Plan Start: 03/18/20 17:40 Freq: Status: Active Protocol: Document 12/12/20 09:52 HH (Rec: 12/12/20 10:32 HH [id number]) Physical Therapy Assessment Goals stair climb Impairment pt needs B support for stair climb Short Term Goal (STG) 09/16 pt was able to toe tap on stairs w/o support for the past month but unable currently d/t recent flare up Hat Forming Machine Feeder Goal (LTG) pt will show improve single leg strength so he will be able to complete stair climb ( 3-5 steps) with a step to pattern without support. LTG Duration 8 weeks SL stance Impairment Pt is unable to complete SLS Short Term Goal (STG) 09/16/20 pt previously was able to hold up to 3 s but unable since this recent flare up pt will be able to complete SLS for 5s or more STG Duration 07/30/20 Prison Goal (LTG) pt will be able to complete SLS for 10s or more in order for him to amb / turn without excessive lateral weight shift . LTG Duration 8 weeks amb Impairment pt currently amb with 4WW at all times Short Term Goal (STG) 09/16/20 pt has been able to not use 4WW, but just w/o AD or hiking poles for mobility for the past 2 months. However , he started using 4WW d/t recent flare up pt will be able to amb without 4WW for household distance. STG Duration 6 weeks Hat Forming Machine Feeder Goal (LTG) 06/27 goal met pt will be able to amb without 4WW for community distance LTG Duration 12 weeks Four Impairment Significant limitations in lumbar ROM (10?-20?) Short Term Goal (STG) 05/20 pt is able to complete active trunk flexion and extension with mild discomfort. Cont to have difficulty with isolated lumbar flexion. Hat Forming Machine Feeder Goal (LTG) 06/27 goal met pt is able to complete floor touch with full lumbar flexion LTG Duration 05/20/20 Three Impairment Pt demonstrates right foot drop during gait Short Term Goal (STG) 05/20 goal met Pt stated he doesnt have R foot drop at this point and strength is at 4/5, R hip 4- to 4/5. Prison Goal (LTG) 09/16/20 pt regain full ROM and strength at R ankle DF/PF LTG Duration 06/30/20 Two Impairment Pt ambulates 332' (1.43 ft/sec ) using a FWW during a Two Minute Walk Test Short Term Goal (STG) 06/27/20 Pt is able to complete 816' in 6 MWT with hiking poles. Pt took 1 break a between. Pt will be able to amb with LRAD to complete 6 MWT for 900 ft. STG Duration 07/30/20 Prison Goal (LTG) 12 weeks Pt to complete a six minute walk test without AD for 1000 ft. LTG Duration 8 weeks One Impairment Pt does not have an appropriate home exercise program Short Term Goal (STG) 05/20 cont in progress pt stated that he is not that compliant with HEP but HEP did help him Pt to be independent and compliant with an appropriate HEP STG Duration 06/19 Assessment Summary Assessment Pt has increased stiffness today. This session is mostly trunk ROM in gravity eliminated position. Physical Therapy Plan Frequency and Duration Frequency of Treatment 2x/Week Duration of Treatment 12 weeks Plan of Care Start Date 09/16/20 Plan of Care End Date 12/15/20 Next Visit Focus/Plan Next Note Type Treatment Note Next Visit Plan stretch, hip extension, SL stability toe tap, step up and kymberly ttrianing
--- NOTE | 2020-12-20 12:20 | PT.OPPOC ---
Physical, Occupational & Speech Therapy At [facility] Current Diagnoses Foot drop, right foot (12/20/20) Stiffness of unspecified joint, not elsewhere classified (12/20/20) Stiffness of right hip, not elsewhere classified (12/20/20) Stiffness of left hip, not elsewhere classified (12/20/20) Radiculopathy, lumbar region (12/20/20) Muscle weakness (generalized) (12/20/20) Other abnormalities of gait and mobility (12/20/20) Visit Care Team Role Provider Type Robin Lee MD Family Provider Physician Primary Care Provider Specialty: Internal Medicine Address: [address] [place] [address], [id number] Email: [email or web address] Shaka eReves MD Attending Provider Non-Staff Referring Provider Specialty: Medical Address: [address] [place] [address], [id number] Email: Plan Of Care PT-OP-T Assessment and Plan Start: 03/18/20 17:40 Freq: Status: Active Protocol: Document 12/20/20 11:14 (Rec: 12/20/20 12:20 [id number]) Physical Therapy Assessment Goals stair climb Impairment pt needs B support for stair climb Short Term Goal (STG) 12/20 pt was able to toe tap on stairs w/o support in August but unable currently d/t recent flare up Machine Operator Packaging Goal (LTG) pt will show improve single leg strength so he will be able to complete stair climb ( 3-5 steps) with a step to pattern without support. LTG Duration 8 weeks SL stance Impairment Pt is unable to complete SLS Short Term Goal (STG) 12/20 pt previously was able to hold up to 3 s bilaterally in August but multiple flare ups over the past few months. L= 0s, R= 3s pt will be able to complete SLS for 5s or more STG Duration 01/19/21 Machine Operator Packaging Goal (LTG) pt will be able to complete SLS for 10s or more in order for him to amb / turn without excessive lateral weight shift . LTG Duration 02/19/21 amb Impairment pt currently amb with 4WW at all times Short Term Goal (STG) 12/20/20 pt has been able to not use 4WW, but just w/o AD or hiking poles for mobility for the past 3 months. STG Duration 6 weeks Machine Operator Packaging Goal (LTG) 12/20 goal met pt will be able to amb without 4WW for community distance LTG Duration 12 weeks Two Impairment Pt ambulates 332' (1.43 ft/sec ) using a FWW during a Two Minute Walk Test Short Term Goal (STG) 12/20 Pt is unable to complete 6MWT, completed 208ft in 2minutes without AD d/t back pain. Pt will be able to amb with LRAD to complete the whole 6 MWT. STG Duration 01/19/21 Alf Goal (LTG) 12 weeks Pt to complete a six minute walk test without AD for 800 ft. LTG Duration 02/19/21 One Impairment Pt does not have an appropriate home exercise program Short Term Goal (STG) 05/20 cont in progress pt stated that he is not that compliant with HEP but HEP did help him Pt to be independent and compliant with an appropriate HEP STG Duration 06/19 Progress Towards Goals Progress Towards Goals Slow Progress due to Activity Tolerance,Slow Progress due to Medical Issues,Slow Progress - Other Assessment Summary Assessment Pt overall shows limited progress d/t multiple personal factors such as recent home renovations and personal vacations. Pt understands his limited progress but he did notice he has less flare ups from the past 2 months and willing to participate pool fitness class in [facility] + PT at the same time to improve his overall mobility by managing his WB tolerance. Will closely monitor his progress and continue to focus on overall trunk stability and walking endurance. Physical Therapy Plan Frequency and Duration Frequency of Treatment 2x/Week Duration of Treatment 12 weeks Plan of Care Start Date 12/20/20 Plan of Care End Date 03/20/21 Therapeutic Interventions Therapeutic Interventions Balance Training,Gait Training ,Home Exercise Program,Joint Mobilizations,Manual Therapy, Neuromuscular Re-education, Patient/Caregiver Education, Self-Care/Home Management,Soft Tissue Mobilization, Therapeutic Activities, Therapeutic Exercises Modalities Cold Pack/Ice Massage,Electric Stimulation,Hot Packs, Ultrasound Next Visit Focus/Plan Next Note Type Treatment Note Next Visit Plan stretch, hip extension, SL stability toe tap, step up and kymberly ttrianing Plan of Care Dates Plan of Care Start Date 12/20/20 Plan of Care End Date 03/20/21 Electronically Signed by: Willie Uribe PT 12/20/20 [id number] Please Sign and Return: I have reviewed this Plan of Care and certify that the skilled therapy services above are required to meet the patient?s needs. Physician Signature Date Printed Name and Credentials Clinical Instructor Signature Printed Name and Credentials
--- NOTE | 2020-12-20 12:21 | PT.OTN ---
Current Diagnoses Foot drop, right foot (12/20/20) Stiffness of unspecified joint, not elsewhere classified (12/20/20) Stiffness of right hip, not elsewhere classified (12/20/20) Stiffness of left hip, not elsewhere classified (12/20/20) Radiculopathy, lumbar region (12/20/20) Muscle weakness (generalized) (12/20/20) Other abnormalities of gait and mobility (12/20/20) Physical Therapy Treatment Note PT-OP-A Visit Information Start: 03/18/20 17:40 Freq: Status: Active Protocol: Document 12/20/20 11:14 HH (Rec: 12/20/20 12:20 HH [id number]) Out-Patient Physical Therapy Visit Information Visit Information Visit Type Progress Note Visit Note pt came in without AD Visit Start Time 11:18 Visit Stop Time 12:00 Total Visit Minutes 42 Visit Number 46 Number of WAGE AND SALARY ADMINISTRATOR Visits 0 PT-OP-B Current Condition Start: 03/18/20 17:40 Freq: Status: Active Protocol: Document 03/18/20 14:30 DCW (Rec: 03/18/20 17:52 DCW [id number]) Current Condition History of Current Condition Onset Date Eight weeks Current Complaints weakness, gait difficulty, LBP , decreased activity tolerance History of Current Condition Pt is a 69 year old male presenting eight weeks s/p L4- 5 microdiscectomy. Pt reports he has been experiencing low back pain for years, but about 5 months ago, the pain began to rapidly accelerate, and he was found to have ruptured his L4-5 disc. Unfortunately, due to Covid-19 shutdowns, he was unable to get in to have anything done with it, until he finally underwent a microdiscectomy eight weeks ago. Pt reports that prior to the surgery, he was barely moving around, and feels like he has lost a lot of strength and mobility. Pt reports that he had been experiencing weakness and radicular pain down his left leg prior to surgery, however that has improved, and he now has significant right-sided leg weakness. Pt reports he did not use any assistive device prior to his disc rupture, but has pretty much been using a 4WW ever since. Pt is beginning to notice shoulder pain because he is bearing so much weight through his upper extremities. Reports he currently gets fatigued just walking across the room. Treatment Goals Patient/Caregiver Goals I really want to regain strength in my right leg. PT-OP-C Subjective Start: 03/18/20 17:40 Freq: Status: Active Protocol: Document 12/20/20 11:14 HH (Rec: 12/20/20 12:20 HH [id number]) OP-PT Subjective Patient Comments Patient Comments I am doing okay so far. Patient Reported Progress Same PT-OP-E Functional Tests Start: 03/18/20 17:40 Freq: Status: Active Protocol: Document 06/27/20 14:11 HH (Rec: 06/27/20 14:13 HH [id number]) Functional Tests 6 Minute Walk Test Distance 816 Device Used hiking sticks Comments pt took a rest break at 1:55 remaining Other Single leg stance Name of Test pt cannot complete 360 turns Name of Test 4 second each direction Comment limping noted PT-OP-F Manual Assessment Start: 03/18/20 17:40 Freq: Status: Active Protocol: Document 03/18/20 14:30 DCW (Rec: 03/19/20 09:44 DCW [id number]) Manual Assessments Soft Tissue Assessment Soft Tissue Mobility Assessment Hypertonia and tenderness to palpation 2/4: Pain with wincing along bilateral piriformis, bilateral hamstring, bilateral psoas. Joint Mobility Assessment Joint Mobility Assessment Minimal mobility through lumbar spine, majority of flexion movement comes from hips. PT-OP-G Mobility & Gait Start: 03/18/20 17:40 Freq: Status: Active Protocol: Document 03/18/20 14:30 DCW (Rec: 03/19/20 09:44 DCW [id number]) OP Gait Assessment Gait Gait Assistance Required: Standby Assistance Distance (Feet) 178 Able to Maintain Weight Bearing Status Yes During Gait Assistive Devices Assistive Device Gait Belt,4 Wheeled Walker Orthotic/Prosthetic Devices or Brace: No Gait Deviations General Gait Pattern Antalgic,Ataxic,Decreased Stride Length,Decreased Feet Clearance,Flexed Trunk,Wide Based Gait Factors Limiting Gait Function Factors Limiting Gait Function Decreased Activity Tolerance, Decreased Strength,Limited Range of Motion,Pain PT-OP-K Range of Motion Start: 03/18/20 17:40 Freq: Status: Active Protocol: Document 03/18/20 14:30 DCW (Rec: 03/19/20 09:44 DCW [id number]) Lumbar Spine Range of Motion Lumbar Spine Active Degrees Testing Position Standing Flexion 20 Extension 10 ROM Limitations Soft Tissue Tightness,Bony Restriction,Muscle Weakness, Muscle Tone,Pain Comments When attempting to stand upright, pt is still flexed forward 10?, and then despite appearing to have good forward flexion, his lumbar spine only flexes to 20?, and the remainder of the movement comes from his hip. PT-OP-M Strength Start: 03/18/20 17:40 Freq: Status: Active Protocol: Document 03/18/20 14:30 DCW (Rec: 03/19/20 17:21 DCW [id number]) Hip Strength Hip Manual Muscle Testing Right Flexion (L2) 3+ Fair+ Abduction 4 Good Adduction 4 Good Left Flexion (L2) 4+ Good+ Abduction 4+ Good+ Adduction 4+ Good+ Knee Strength Knee Manual Muscle Testing Right Flexion (S2) 4+ Good+ Extension (L3) 4+ Good+ Left Flexion (S2) 4+ Good+ Extension (L3) 4+ Good+ Ankle/Foot Strength Ankle and Foot Manual Muscle Testing Right Dorsiflexion (L4) 3+ Fair+ Plantarflexion (S1) 4 Good Left Dorsiflexion (L4) 4+ Good+ Plantarflexion (S1) 4+ Good+ PT-OP-Q Treatments Start: 03/18/20 17:40 Freq: Status: Active Protocol: Document 12/20/20 11:14 HH (Rec: 12/20/20 12:20 HH [id number]) Cardio Equipment Recumbent Stepper (Sci-Fit) Duration (Minutes) 8 Resistance 3 Seat Position 12 Therapeutic Exercises Supine Exercises bridging Side bilateral Equipment Used yellow band at knees. Reps/Minutes 10 x2 Sitting Exercises seated reach Sitting Exercise Name toe touch Reps/Minutes 8x2 Manual Therapy Treatment Soft Tissue Mobilization QL Mobilization Type Sustained Pressure,Trigger Point Release Intensity/Depth Moderate Body Position Sidelying Comments increased tonicity noted today . PT-OP-R Modalities Start: 03/18/20 17:40 Freq: Status: Active Protocol: Document 08/27/20 08:55 SP (Rec: 08/27/20 11:12 SP [id number]) Hot Pack/Cold Pack Treatment MHP LS Location B LS Patient Position Prone Treatment Duration (minutes) 10 Patient Tolerance Good Comments decrease LBP PT-OP-T Assessment and Plan Start: 03/18/20 17:40 Freq: Status: Active Protocol: Document 12/20/20 11:14 (Rec: 12/20/20 12:20 [id number]) Physical Therapy Assessment Goals stair climb Impairment pt needs B support for stair climb Short Term Goal (STG) 12/20 pt was able to toe tap on stairs w/o support in August but unable currently d/t recent flare up Skilled Nursing Goal (LTG) pt will show improve single leg strength so he will be able to complete stair climb ( 3-5 steps) with a step to pattern without support. LTG Duration 8 weeks SL stance Impairment Pt is unable to complete SLS Short Term Goal (STG) 12/20 pt previously was able to hold up to 3 s bilaterally in August but multiple flare ups over the past few months. L= 0s, R= 3s pt will be able to complete SLS for 5s or more STG Duration 01/19/21 Skilled Nursing Goal (LTG) pt will be able to complete SLS for 10s or more in order for him to amb / turn without excessive lateral weight shift . LTG Duration 02/19/21 amb Impairment pt currently amb with 4WW at all times Short Term Goal (STG) 12/20/20 pt has been able to not use 4WW, but just w/o AD or hiking poles for mobility for the past 3 months. STG Duration 6 weeks Skilled Nursing Goal (LTG) 12/20 goal met pt will be able to amb without 4WW for community distance LTG Duration 12 weeks Two Impairment Pt ambulates 332' (1.43 ft/sec ) using a FWW during a Two Minute Walk Test Short Term Goal (STG) 12/20 Pt is unable to complete 6MWT, completed 208ft in 2minutes without AD d/t back pain. Pt will be able to amb with LRAD to complete the whole 6 MWT. STG Duration 01/19/21 Skilled Nursing Goal (LTG) 12 weeks Pt to complete a six minute walk test without AD for 800 ft. LTG Duration 02/19/21 One Impairment Pt does not have an appropriate home exercise program Short Term Goal (STG) 05/20 cont in progress pt stated that he is not that compliant with HEP but HEP did help him Pt to be independent and compliant with an appropriate HEP STG Duration 06/19 Progress Towards Goals Progress Towards Goals Slow Progress due to Activity Tolerance,Slow Progress due to Medical Issues,Slow Progress - Other Assessment Summary Assessment Pt overall shows limited progress d/t multiple personal factors such as recent home renovations and personal vacations. Pt understands his limited progress but he did notice he has less flare ups from the past 2 months and willing to participate pool fitness class in [facility] + PT at the same time to improve his overall mobility by managing his WB tolerance. Will closely monitor his progress and continue to focus on overall trunk stability and walking endurance. Physical Therapy Plan Frequency and Duration Frequency of Treatment 2x/Week Duration of Treatment 12 weeks Plan of Care Start Date 12/20/20 Plan of Care End Date 03/20/21 Therapeutic Interventions Therapeutic Interventions Balance Training,Gait Training ,Home Exercise Program,Joint Mobilizations,Manual Therapy, Neuromuscular Re-education, Patient/Caregiver Education, Self-Care/Home Management,Soft Tissue Mobilization, Therapeutic Activities, Therapeutic Exercises Modalities Cold Pack/Ice Massage,Electric Stimulation,Hot Packs, Ultrasound Next Visit Focus/Plan Next Note Type Treatment Note Next Visit Plan stretch, hip extension, SL stability toe tap, step up and kymberly ttrianing
--- NOTE | 2020-12-23 10:33 | PT.OTN ---
Current Diagnoses Foot drop, right foot (12/23/20) Stiffness of unspecified joint, not elsewhere classified (12/23/20) Stiffness of right hip, not elsewhere classified (12/23/20) Stiffness of left hip, not elsewhere classified (12/23/20) Radiculopathy, lumbar region (12/23/20) Muscle weakness (generalized) (12/23/20) Other abnormalities of gait and mobility (12/23/20) Physical Therapy Treatment Note PT-OP-A Visit Information Start: 03/18/20 17:40 Freq: Status: Active Protocol: Document 12/23/20 09:43 HH (Rec: 12/23/20 10:33 HH [id number]) Out-Patient Physical Therapy Visit Information Visit Information Visit Type Treatment Note Visit Note pt came in without AD Visit Start Time 09:45 Visit Stop Time 10:35 Total Visit Minutes 50 Visit Number 47 Number of EVENT SERVICES MANAGER Visits 0 PT-OP-B Current Condition Start: 03/18/20 17:40 Freq: Status: Active Protocol: Document 03/18/20 14:30 DCW (Rec: 03/18/20 17:52 DCW [id number]) Current Condition History of Current Condition Onset Date Eight weeks Current Complaints weakness, gait difficulty, LBP , decreased activity tolerance History of Current Condition Pt is a 69 year old male presenting eight weeks s/p L4- 5 microdiscectomy. Pt reports he has been experiencing low back pain for years, but about 5 months ago, the pain began to rapidly accelerate, and he was found to have ruptured his L4-5 disc. Unfortunately, due to Covid-19 shutdowns, he was unable to get in to have anything done with it, until he finally underwent a microdiscectomy eight weeks ago. Pt reports that prior to the surgery, he was barely moving around, and feels like he has lost a lot of strength and mobility. Pt reports that he had been experiencing weakness and radicular pain down his left leg prior to surgery, however that has improved, and he now has significant right-sided leg weakness. Pt reports he did not use any assistive device prior to his disc rupture, but has pretty much been using a 4WW ever since. Pt is beginning to notice shoulder pain because he is bearing so much weight through his upper extremities. Reports he currently gets fatigued just walking across the room. Treatment Goals Patient/Caregiver Goals I really want to regain strength in my right leg. PT-OP-C Subjective Start: 03/18/20 17:40 Freq: Status: Active Protocol: Document 12/23/20 09:43 HH (Rec: 12/23/20 10:33 HH [id number]) OP-PT Subjective Patient Comments Patient Comments Im not too bad today. PT-OP-E Functional Tests Start: 03/18/20 17:40 Freq: Status: Active Protocol: Document 06/27/20 14:11 HH (Rec: 06/27/20 14:13 HH [id number]) Functional Tests 6 Minute Walk Test Distance 816 Device Used hiking sticks Comments pt took a rest break at 1:55 remaining Other Single leg stance Name of Test pt cannot complete 360 turns Name of Test 4 second each direction Comment limping noted PT-OP-F Manual Assessment Start: 03/18/20 17:40 Freq: Status: Active Protocol: Document 03/18/20 14:30 DCW (Rec: 03/19/20 09:44 DCW [id number]) Manual Assessments Soft Tissue Assessment Soft Tissue Mobility Assessment Hypertonia and tenderness to palpation 2/4: Pain with wincing along bilateral piriformis, bilateral hamstring, bilateral psoas. Joint Mobility Assessment Joint Mobility Assessment Minimal mobility through lumbar spine, majority of flexion movement comes from hips. PT-OP-G Mobility & Gait Start: 03/18/20 17:40 Freq: Status: Active Protocol: Document 03/18/20 14:30 DCW (Rec: 03/19/20 09:44 DCW [id number]) OP Gait Assessment Gait Gait Assistance Required: Standby Assistance Distance (Feet) 178 Able to Maintain Weight Bearing Status Yes During Gait Assistive Devices Assistive Device Gait Belt,4 Wheeled Walker Orthotic/Prosthetic Devices or Brace: No Gait Deviations General Gait Pattern Antalgic,Ataxic,Decreased Stride Length,Decreased Feet Clearance,Flexed Trunk,Wide Based Gait Factors Limiting Gait Function Factors Limiting Gait Function Decreased Activity Tolerance, Decreased Strength,Limited Range of Motion,Pain PT-OP-K Range of Motion Start: 03/18/20 17:40 Freq: Status: Active Protocol: Document 03/18/20 14:30 DCW (Rec: 03/19/20 09:44 DCW [id number]) Lumbar Spine Range of Motion Lumbar Spine Active Degrees Testing Position Standing Flexion 20 Extension 10 ROM Limitations Soft Tissue Tightness,Bony Restriction,Muscle Weakness, Muscle Tone,Pain Comments When attempting to stand upright, pt is still flexed forward 10?, and then despite appearing to have good forward flexion, his lumbar spine only flexes to 20?, and the remainder of the movement comes from his hip. PT-OP-M Strength Start: 03/18/20 17:40 Freq: Status: Active Protocol: Document 03/18/20 14:30 DCW (Rec: 03/19/20 17:21 DCW [id number]) Hip Strength Hip Manual Muscle Testing Right Flexion (L2) 3+ Fair+ Abduction 4 Good Adduction 4 Good Left Flexion (L2) 4+ Good+ Abduction 4+ Good+ Adduction 4+ Good+ Knee Strength Knee Manual Muscle Testing Right Flexion (S2) 4+ Good+ Extension (L3) 4+ Good+ Left Flexion (S2) 4+ Good+ Extension (L3) 4+ Good+ Ankle/Foot Strength Ankle and Foot Manual Muscle Testing Right Dorsiflexion (L4) 3+ Fair+ Plantarflexion (S1) 4 Good Left Dorsiflexion (L4) 4+ Good+ Plantarflexion (S1) 4+ Good+ PT-OP-Q Treatments Start: 03/18/20 17:40 Freq: Status: Active Protocol: Document 12/23/20 09:43 HH (Rec: 12/23/20 10:33 HH [id number]) Cardio Equipment Recumbent Stepper (Sci-Fit) Duration (Minutes) 8 Resistance 3 Seat Position 12 Therapeutic Exercises Supine Exercises knee to chest Reps/Minutes 10 sec hold x5 Nimesh Stretch Side bilateral Reps/Minutes 10sec hold x4 bridging Side bilateral Equipment Used yellow band at knees. Reps/Minutes 10 x2 Sitting Exercises seated reaching Sitting Exercise Name able to reach floor Side bilateral Reps/Minutes 10 x2 Comments slower today Standing Exercises hip flexor stretch Side bilateral Reps/Minutes 10 sec hold x 5 crab walk Side bilateral Reps/Minutes 20 ft x 8 Manual Therapy Treatment Soft Tissue Mobilization QL Mobilization Type Sustained Pressure,Trigger Point Release Intensity/Depth Moderate Body Position Sidelying Comments increased tonicity noted today . PT-OP-R Modalities Start: 03/18/20 17:40 Freq: Status: Active Protocol: Document 12/23/20 10:33 HH (Rec: 12/23/20 10:33 [id number]) Electric Stimulation Electric Stimulation Interferential Current (IFC) Body Location lumbar Duration (Minutes) 10 Intensity 35 Target/Sweep Target High/Low High PT-OP-T Assessment and Plan Start: 03/18/20 17:40 Freq: Status: Active Protocol: Document 12/23/20 09:43 HH (Rec: 12/23/20 10:33 [id number]) Physical Therapy Assessment Goals stair climb Impairment pt needs B support for stair climb Short Term Goal (STG) 12/20 pt was able to toe tap on stairs w/o support in August but unable currently d/t recent flare up Winterizer Goal (LTG) pt will show improve single leg strength so he will be able to complete stair climb ( 3-5 steps) with a step to pattern without support. LTG Duration 8 weeks SL stance Impairment Pt is unable to complete SLS Short Term Goal (STG) 12/20 pt previously was able to hold up to 3 s bilaterally in August but multiple flare ups over the past few months. L= 0s, R= 3s pt will be able to complete SLS for 5s or more STG Duration 01/19/21 Winterizer Goal (LTG) pt will be able to complete SLS for 10s or more in order for him to amb / turn without excessive lateral weight shift . LTG Duration 02/19/21 Two Impairment Pt ambulates 332' (1.43 ft/sec ) using a FWW during a Two Minute Walk Test Short Term Goal (STG) 12/20 Pt is unable to complete 6MWT, completed 208ft in 2minutes without AD d/t back pain. Pt will be able to amb with LRAD to complete the whole 6 MWT. STG Duration 01/19/21 Winterizer Goal (LTG) 12 weeks Pt to complete a six minute walk test without AD for 800 ft. LTG Duration 02/19/21 One Impairment Pt does not have an appropriate home exercise program Short Term Goal (STG) 05/20 cont in progress pt stated that he is not that compliant with HEP but HEP did help him Pt to be independent and compliant with an appropriate HEP STG Duration 06/19 Assessment Summary Assessment Pt nakul session well today and he agreed to check with pool classes today after session. Physical Therapy Plan Frequency and Duration Frequency of Treatment 2x/Week Duration of Treatment 12 weeks Plan of Care Start Date 12/20/20 Plan of Care End Date 03/20/21 Therapeutic Interventions Therapeutic Interventions Balance Training,Gait Training ,Home Exercise Program,Joint Mobilizations,Manual Therapy, Neuromuscular Re-education, Patient/Caregiver Education, Self-Care/Home Management,Soft Tissue Mobilization, Therapeutic Activities, Therapeutic Exercises Modalities Cold Pack/Ice Massage,Electric Stimulation,Hot Packs, Ultrasound Next Visit Focus/Plan Next Note Type Treatment Note Next Visit Plan stretch, hip extension, SL stability toe tap, step up and kymberly ttrianing
--- NOTE | 2020-12-26 12:13 | PT.OTN ---
Current Diagnoses Foot drop, right foot (12/26/20) Stiffness of unspecified joint, not elsewhere classified (12/26/20) Stiffness of right hip, not elsewhere classified (12/26/20) Stiffness of left hip, not elsewhere classified (12/26/20) Radiculopathy, lumbar region (12/26/20) Muscle weakness (generalized) (12/26/20) Other abnormalities of gait and mobility (12/26/20) Physical Therapy Treatment Note PT-OP-A Visit Information Start: 03/18/20 17:40 Freq: Status: Active Protocol: Document 12/26/20 09:48 HH (Rec: 12/26/20 10:32 HH [id number]) Out-Patient Physical Therapy Visit Information Visit Information Visit Type Treatment Note Visit Note pt came in without AD Visit Start Time 09:45 Visit Stop Time 10:28 Total Visit Minutes 43 Visit Number 48 Number of WHEELAGE CLERK Visits 0 PT-OP-B Current Condition Start: 03/18/20 17:40 Freq: Status: Active Protocol: Document 03/18/20 14:30 DCW (Rec: 03/18/20 17:52 DCW [id number]) Current Condition History of Current Condition Onset Date Eight weeks Current Complaints weakness, gait difficulty, LBP , decreased activity tolerance History of Current Condition Pt is a 69 year old male presenting eight weeks s/p L4- 5 microdiscectomy. Pt reports he has been experiencing low back pain for years, but about 5 months ago, the pain began to rapidly accelerate, and he was found to have ruptured his L4-5 disc. Unfortunately, due to Covid-19 shutdowns, he was unable to get in to have anything done with it, until he finally underwent a microdiscectomy eight weeks ago. Pt reports that prior to the surgery, he was barely moving around, and feels like he has lost a lot of strength and mobility. Pt reports that he had been experiencing weakness and radicular pain down his left leg prior to surgery, however that has improved, and he now has significant right-sided leg weakness. Pt reports he did not use any assistive device prior to his disc rupture, but has pretty much been using a 4WW ever since. Pt is beginning to notice shoulder pain because he is bearing so much weight through his upper extremities. Reports he currently gets fatigued just walking across the room. Treatment Goals Patient/Caregiver Goals I really want to regain strength in my right leg. PT-OP-C Subjective Start: 03/18/20 17:40 Freq: Status: Active Protocol: Document 12/26/20 09:48 HH (Rec: 12/26/20 10:32 HH [id number]) OP-PT Subjective Patient Comments Patient Comments I am really stiff today for my back. Patient Reported Progress Worse PT-OP-E Functional Tests Start: 03/18/20 17:40 Freq: Status: Active Protocol: Document 06/27/20 14:11 HH (Rec: 06/27/20 14:13 HH [id number]) Functional Tests 6 Minute Walk Test Distance 816 Device Used hiking sticks Comments pt took a rest break at 1:55 remaining Other Single leg stance Name of Test pt cannot complete 360 turns Name of Test 4 second each direction Comment limping noted PT-OP-F Manual Assessment Start: 03/18/20 17:40 Freq: Status: Active Protocol: Document 03/18/20 14:30 DCW (Rec: 03/19/20 09:44 DCW [id number]) Manual Assessments Soft Tissue Assessment Soft Tissue Mobility Assessment Hypertonia and tenderness to palpation 2/4: Pain with wincing along bilateral piriformis, bilateral hamstring, bilateral psoas. Joint Mobility Assessment Joint Mobility Assessment Minimal mobility through lumbar spine, majority of flexion movement comes from hips. PT-OP-G Mobility & Gait Start: 03/18/20 17:40 Freq: Status: Active Protocol: Document 03/18/20 14:30 DCW (Rec: 03/19/20 09:44 DCW [id number]) OP Gait Assessment Gait Gait Assistance Required: Standby Assistance Distance (Feet) 178 Able to Maintain Weight Bearing Status Yes During Gait Assistive Devices Assistive Device Gait Belt,4 Wheeled Walker Orthotic/Prosthetic Devices or Brace: No Gait Deviations General Gait Pattern Antalgic,Ataxic,Decreased Stride Length,Decreased Feet Clearance,Flexed Trunk,Wide Based Gait Factors Limiting Gait Function Factors Limiting Gait Function Decreased Activity Tolerance, Decreased Strength,Limited Range of Motion,Pain PT-OP-K Range of Motion Start: 03/18/20 17:40 Freq: Status: Active Protocol: Document 03/18/20 14:30 DCW (Rec: 03/19/20 09:44 DCW [id number]) Lumbar Spine Range of Motion Lumbar Spine Active Degrees Testing Position Standing Flexion 20 Extension 10 ROM Limitations Soft Tissue Tightness,Bony Restriction,Muscle Weakness, Muscle Tone,Pain Comments When attempting to stand upright, pt is still flexed forward 10?, and then despite appearing to have good forward flexion, his lumbar spine only flexes to 20?, and the remainder of the movement comes from his hip. PT-OP-M Strength Start: 03/18/20 17:40 Freq: Status: Active Protocol: Document 03/18/20 14:30 DCW (Rec: 03/19/20 17:21 DCW [id number]) Hip Strength Hip Manual Muscle Testing Right Flexion (L2) 3+ Fair+ Abduction 4 Good Adduction 4 Good Left Flexion (L2) 4+ Good+ Abduction 4+ Good+ Adduction 4+ Good+ Knee Strength Knee Manual Muscle Testing Right Flexion (S2) 4+ Good+ Extension (L3) 4+ Good+ Left Flexion (S2) 4+ Good+ Extension (L3) 4+ Good+ Ankle/Foot Strength Ankle and Foot Manual Muscle Testing Right Dorsiflexion (L4) 3+ Fair+ Plantarflexion (S1) 4 Good Left Dorsiflexion (L4) 4+ Good+ Plantarflexion (S1) 4+ Good+ PT-OP-Q Treatments Start: 03/18/20 17:40 Freq: Status: Active Protocol: Document 12/26/20 09:48 HH (Rec: 12/26/20 10:32 HH [id number]) Therapeutic Exercises Supine Exercises Nimesh Stretch Side bilateral Reps/Minutes 10sec hold x4 Sitting Exercises seated reach Sitting Exercise Name able to reach mid loaiza only Reps/Minutes 8x2 seated reaching Sitting Exercise Name with therapy ball Side bilateral Equipment Used marrero ball Reps/Minutes 10 x2 Comments lateral flexion ot R Standing Exercises hip flexor stretch Side bilateral Reps/Minutes 10 sec hold x 5 Manual Therapy Treatment Soft Tissue Mobilization QL Body Location L Mobilization Type Sustained Pressure,Trigger Point Release Intensity/Depth Moderate Body Position Sidelying Comments has significant pain and tonicity at L QL today. PT-OP-R Modalities Start: 03/18/20 17:40 Freq: Status: Active Protocol: Document 12/23/20 10:33 HH (Rec: 12/23/20 10:33 HH [id number]) Electric Stimulation Electric Stimulation Interferential Current (IFC) Body Location lumbar Duration (Minutes) 10 Intensity 35 Target/Sweep Target High/Low High PT-OP-T Assessment and Plan Start: 03/18/20 17:40 Freq: Status: Active Protocol: Document 12/26/20 09:48 HH (Rec: 12/26/20 10:32 HH [id number]) Physical Therapy Assessment Goals stair climb Impairment pt needs B support for stair climb Short Term Goal (STG) 12/20 pt was able to toe tap on stairs w/o support in August but unable currently d/t recent flare up Training Administrator Goal (LTG) pt will show improve single leg strength so he will be able to complete stair climb ( 3-5 steps) with a step to pattern without support. LTG Duration 8 weeks SL stance Impairment Pt is unable to complete SLS Short Term Goal (STG) 12/20 pt previously was able to hold up to 3 s bilaterally in August but multiple flare ups over the past few months. L= 0s, R= 3s pt will be able to complete SLS for 5s or more STG Duration 01/19/21 Half-Way Goal (LTG) pt will be able to complete SLS for 10s or more in order for him to amb / turn without excessive lateral weight shift . LTG Duration 02/19/21 Two Impairment Pt ambulates 332' (1.43 ft/sec ) using a FWW during a Two Minute Walk Test Short Term Goal (STG) 12/20 Pt is unable to complete 6MWT, completed 208ft in 2minutes without AD d/t back pain. Pt will be able to amb with LRAD to complete the whole 6 MWT. STG Duration 01/19/21 Training Administrator Goal (LTG) 12 weeks Pt to complete a six minute walk test without AD for 800 ft. LTG Duration 02/19/21 One Impairment Pt does not have an appropriate home exercise program Short Term Goal (STG) 05/20 cont in progress pt stated that he is not that compliant with HEP but HEP did help him Pt to be independent and compliant with an appropriate HEP STG Duration 06/19 Assessment Summary Assessment Pt has significant stiffness and pain at L distal QL today. He was hardly able to walk but did better after manual therapy. Physical Therapy Plan Frequency and Duration Frequency of Treatment 2x/Week Duration of Treatment 12 weeks Plan of Care Start Date 12/20/20 Plan of Care End Date 03/20/21 Therapeutic Interventions Therapeutic Interventions Balance Training,Gait Training ,Home Exercise Program,Joint Mobilizations,Manual Therapy, Neuromuscular Re-education, Patient/Caregiver Education, Self-Care/Home Management,Soft Tissue Mobilization, Therapeutic Activities, Therapeutic Exercises Modalities Cold Pack/Ice Massage,Electric Stimulation,Hot Packs, Ultrasound Next Visit Focus/Plan Next Note Type Treatment Note Next Visit Plan stretch, hip extension, SL stability toe tap, step up and kymberly ttrianing
--- NOTE | 2021-01-02 10:35 | PT.OTN ---
Current Diagnoses Foot drop, right foot (01/02/21) Stiffness of unspecified joint, not elsewhere classified (01/02/21) Stiffness of right hip, not elsewhere classified (01/02/21) Stiffness of left hip, not elsewhere classified (01/02/21) Radiculopathy, lumbar region (01/02/21) Muscle weakness (generalized) (01/02/21) Other abnormalities of gait and mobility (01/02/21) Physical Therapy Treatment Note PT-OP-A Visit Information Start: 03/18/20 17:40 Freq: Status: Active Protocol: Document 01/02/21 09:42 HH (Rec: 01/02/21 10:35 HH [id number]) Out-Patient Physical Therapy Visit Information Visit Information Visit Type Treatment Note Visit Note pt came in without AD Visit Start Time 09:45 Visit Stop Time 10:30 Total Visit Minutes 45 Visit Number 49 Number of SIEVE MAKER Visits 0 PT-OP-B Current Condition Start: 03/18/20 17:40 Freq: Status: Active Protocol: Document 03/18/20 14:30 DCW (Rec: 03/18/20 17:52 DCW [id number]) Current Condition History of Current Condition Onset Date Eight weeks Current Complaints weakness, gait difficulty, LBP , decreased activity tolerance History of Current Condition Pt is a 69 year old male presenting eight weeks s/p L4- 5 microdiscectomy. Pt reports he has been experiencing low back pain for years, but about 5 months ago, the pain began to rapidly accelerate, and he was found to have ruptured his L4-5 disc. Unfortunately, due to Covid-19 shutdowns, he was unable to get in to have anything done with it, until he finally underwent a microdiscectomy eight weeks ago. Pt reports that prior to the surgery, he was barely moving around, and feels like he has lost a lot of strength and mobility. Pt reports that he had been experiencing weakness and radicular pain down his left leg prior to surgery, however that has improved, and he now has significant right-sided leg weakness. Pt reports he did not use any assistive device prior to his disc rupture, but has pretty much been using a 4WW ever since. Pt is beginning to notice shoulder pain because he is bearing so much weight through his upper extremities. Reports he currently gets fatigued just walking across the room. Treatment Goals Patient/Caregiver Goals I really want to regain strength in my right leg. PT-OP-C Subjective Start: 03/18/20 17:40 Freq: Status: Active Protocol: Document 01/02/21 09:42 HH (Rec: 01/02/21 10:35 HH [id number]) OP-PT Subjective Patient Comments Patient Comments I started taking my antiinflammatory meds again and i felt better and able to move better Patient Reported Progress Improving PT-OP-E Functional Tests Start: 03/18/20 17:40 Freq: Status: Active Protocol: Document 06/27/20 14:11 HH (Rec: 06/27/20 14:13 HH [id number]) Functional Tests 6 Minute Walk Test Distance 816 Device Used hiking sticks Comments pt took a rest break at 1:55 remaining Other Single leg stance Name of Test pt cannot complete 360 turns Name of Test 4 second each direction Comment limping noted PT-OP-F Manual Assessment Start: 03/18/20 17:40 Freq: Status: Active Protocol: Document 03/18/20 14:30 DCW (Rec: 03/19/20 09:44 DCW [id number]) Manual Assessments Soft Tissue Assessment Soft Tissue Mobility Assessment Hypertonia and tenderness to palpation 2/4: Pain with wincing along bilateral piriformis, bilateral hamstring, bilateral psoas. Joint Mobility Assessment Joint Mobility Assessment Minimal mobility through lumbar spine, majority of flexion movement comes from hips. PT-OP-G Mobility & Gait Start: 03/18/20 17:40 Freq: Status: Active Protocol: Document 03/18/20 14:30 DCW (Rec: 03/19/20 09:44 DCW [id number]) OP Gait Assessment Gait Gait Assistance Required: Standby Assistance Distance (Feet) 178 Able to Maintain Weight Bearing Status Yes During Gait Assistive Devices Assistive Device Gait Belt,4 Wheeled Walker Orthotic/Prosthetic Devices or Brace: No Gait Deviations General Gait Pattern Antalgic,Ataxic,Decreased Stride Length,Decreased Feet Clearance,Flexed Trunk,Wide Based Gait Factors Limiting Gait Function Factors Limiting Gait Function Decreased Activity Tolerance, Decreased Strength,Limited Range of Motion,Pain PT-OP-K Range of Motion Start: 03/18/20 17:40 Freq: Status: Active Protocol: Document 03/18/20 14:30 DCW (Rec: 03/19/20 09:44 DCW [id number]) Lumbar Spine Range of Motion Lumbar Spine Active Degrees Testing Position Standing Flexion 20 Extension 10 ROM Limitations Soft Tissue Tightness,Bony Restriction,Muscle Weakness, Muscle Tone,Pain Comments When attempting to stand upright, pt is still flexed forward 10?, and then despite appearing to have good forward flexion, his lumbar spine only flexes to 20?, and the remainder of the movement comes from his hip. PT-OP-M Strength Start: 03/18/20 17:40 Freq: Status: Active Protocol: Document 03/18/20 14:30 DCW (Rec: 03/19/20 17:21 DCW [id number]) Hip Strength Hip Manual Muscle Testing Right Flexion (L2) 3+ Fair+ Abduction 4 Good Adduction 4 Good Left Flexion (L2) 4+ Good+ Abduction 4+ Good+ Adduction 4+ Good+ Knee Strength Knee Manual Muscle Testing Right Flexion (S2) 4+ Good+ Extension (L3) 4+ Good+ Left Flexion (S2) 4+ Good+ Extension (L3) 4+ Good+ Ankle/Foot Strength Ankle and Foot Manual Muscle Testing Right Dorsiflexion (L4) 3+ Fair+ Plantarflexion (S1) 4 Good Left Dorsiflexion (L4) 4+ Good+ Plantarflexion (S1) 4+ Good+ PT-OP-Q Treatments Start: 03/18/20 17:40 Freq: Status: Active Protocol: Document 01/02/21 09:42 HH (Rec: 01/02/21 10:35 HH [id number]) Therapeutic Exercises Supine Exercises knee to chest Reps/Minutes 10 sec hold x5 HS stretch Side bilateral Nimesh Stretch Side bilateral Reps/Minutes 10sec hold x4 bridging Side bilateral Equipment Used yellow band at knees. Reps/Minutes 10 x2 Prone Exercises hip extension Prone Exercise Name prone on elbow on bolster Side bilateral Reps/Minutes 10 x2 Comments no discomfort noted Sitting Exercises seated reach Sitting Exercise Name able to reach mid loaiza only Reps/Minutes 8x2 seated reaching Sitting Exercise Name with therapy ball Side bilateral Equipment Used marrero ball Reps/Minutes 10 x2 Comments lateral flexion ot R Standing Exercises hip hinge Standing Exercise Name UE support on table Side bilateral Reps/Minutes 10 reps x 3 Comments cues on neutral spine , and hip extension Manual Therapy Treatment Soft Tissue Mobilization QL Body Location L Mobilization Type Sustained Pressure,Trigger Point Release Intensity/Depth Moderate Body Position Sidelying Comments has significant pain and tonicity at L QL today. PT-OP-R Modalities Start: 03/18/20 17:40 Freq: Status: Active Protocol: Document 12/23/20 10:33 HH (Rec: 12/23/20 10:33 HH [id number]) Electric Stimulation Electric Stimulation Interferential Current (IFC) Body Location lumbar Duration (Minutes) 10 Intensity 35 Target/Sweep Target High/Low High PT-OP-T Assessment and Plan Start: 03/18/20 17:40 Freq: Status: Active Protocol: Document 01/02/21 09:42 HH (Rec: 01/02/21 10:35 HH [id number]) Physical Therapy Assessment Goals stair climb Impairment pt needs B support for stair climb Short Term Goal (STG) 12/20 pt was able to toe tap on stairs w/o support in August but unable currently d/t recent flare up Skilled Nursing Goal (LTG) pt will show improve single leg strength so he will be able to complete stair climb ( 3-5 steps) with a step to pattern without support. LTG Duration 8 weeks SL stance Impairment Pt is unable to complete SLS Short Term Goal (STG) 12/20 pt previously was able to hold up to 3 s bilaterally in August but multiple flare ups over the past few months. L= 0s, R= 3s pt will be able to complete SLS for 5s or more STG Duration 01/19/21 Oxyacetylene Cutter Goal (LTG) pt will be able to complete SLS for 10s or more in order for him to amb / turn without excessive lateral weight shift . LTG Duration 02/19/21 Two Impairment Pt ambulates 332' (1.43 ft/sec ) using a FWW during a Two Minute Walk Test Short Term Goal (STG) 12/20 Pt is unable to complete 6MWT, completed 208ft in 2minutes without AD d/t back pain. Pt will be able to amb with LRAD to complete the whole 6 MWT. STG Duration 01/19/21 Oxyacetylene Cutter Goal (LTG) 12 weeks Pt to complete a six minute walk test without AD for 800 ft. LTG Duration 02/19/21 One Impairment Pt does not have an appropriate home exercise program Short Term Goal (STG) 05/20 cont in progress pt stated that he is not that compliant with HEP but HEP did help him Pt to be independent and compliant with an appropriate HEP STG Duration 06/19 Assessment Summary Assessment Pt is going to participate pool class whicj will be beneficial to him to practice therex in gravity eliminated positions. Pt started his anti -inflammatory meds and his pain seems to be better and able to nakul session well today . Physical Therapy Plan Frequency and Duration Frequency of Treatment 2x/Week Duration of Treatment 12 weeks Plan of Care Start Date 12/20/20 Plan of Care End Date 03/20/21 Therapeutic Interventions Therapeutic Interventions Balance Training,Gait Training ,Home Exercise Program,Joint Mobilizations,Manual Therapy, Neuromuscular Re-education, Patient/Caregiver Education, Self-Care/Home Management,Soft Tissue Mobilization, Therapeutic Activities, Therapeutic Exercises Modalities Cold Pack/Ice Massage,Electric Stimulation,Hot Packs, Ultrasound Next Visit Focus/Plan Next Note Type Treatment Note Next Visit Plan stretch, hip extension, SL stability toe tap, step up and kymberly ttrianing
--- NOTE | 2021-01-09 12:05 | PT.OTN ---
Current Diagnoses Foot drop, right foot (01/09/21) Stiffness of unspecified joint, not elsewhere classified (01/09/21) Stiffness of right hip, not elsewhere classified (01/09/21) Stiffness of left hip, not elsewhere classified (01/09/21) Radiculopathy, lumbar region (01/09/21) Muscle weakness (generalized) (01/09/21) Other abnormalities of gait and mobility (01/09/21) Physical Therapy Treatment Note PT-OP-A Visit Information Start: 03/18/20 17:40 Freq: Status: Active Protocol: Document 01/09/21 09:34 HH (Rec: 01/09/21 12:05 HH [id number]) Out-Patient Physical Therapy Visit Information Visit Information Visit Type Treatment Note Visit Note pt came in without AD Visit Start Time 09:40 Visit Stop Time 10:25 Total Visit Minutes 45 Visit Number 50 Number of ATTENDING AMBULATORY CARE Visits 0 PT-OP-B Current Condition Start: 03/18/20 17:40 Freq: Status: Active Protocol: Document 03/18/20 14:30 DCW (Rec: 03/18/20 17:52 DCW [id number]) Current Condition History of Current Condition Onset Date Eight weeks Current Complaints weakness, gait difficulty, LBP , decreased activity tolerance History of Current Condition Pt is a 69 year old male presenting eight weeks s/p L4- 5 microdiscectomy. Pt reports he has been experiencing low back pain for years, but about 5 months ago, the pain began to rapidly accelerate, and he was found to have ruptured his L4-5 disc. Unfortunately, due to Covid-19 shutdowns, he was unable to get in to have anything done with it, until he finally underwent a microdiscectomy eight weeks ago. Pt reports that prior to the surgery, he was barely moving around, and feels like he has lost a lot of strength and mobility. Pt reports that he had been experiencing weakness and radicular pain down his left leg prior to surgery, however that has improved, and he now has significant right-sided leg weakness. Pt reports he did not use any assistive device prior to his disc rupture, but has pretty much been using a 4WW ever since. Pt is beginning to notice shoulder pain because he is bearing so much weight through his upper extremities. Reports he currently gets fatigued just walking across the room. Treatment Goals Patient/Caregiver Goals I really want to regain strength in my right leg. PT-OP-C Subjective Start: 03/18/20 17:40 Freq: Status: Active Protocol: Document 01/09/21 09:34 HH (Rec: 01/09/21 12:05 HH [id number]) OP-PT Subjective Patient Comments Patient Comments I wanna take it easy today since i did the pool class and im going to do it twice a week. I also noticed i have a new onset of L quad pain and i want to know why. Patient Reported Progress Improving PT-OP-E Functional Tests Start: 03/18/20 17:40 Freq: Status: Active Protocol: Document 06/27/20 14:11 HH (Rec: 06/27/20 14:13 HH [id number]) Functional Tests 6 Minute Walk Test Distance 816 Device Used hiking sticks Comments pt took a rest break at 1:55 remaining Other Single leg stance Name of Test pt cannot complete 360 turns Name of Test 4 second each direction Comment limping noted PT-OP-F Manual Assessment Start: 03/18/20 17:40 Freq: Status: Active Protocol: Document 03/18/20 14:30 DCW (Rec: 03/19/20 09:44 DCW [id number]) Manual Assessments Soft Tissue Assessment Soft Tissue Mobility Assessment Hypertonia and tenderness to palpation 2/4: Pain with wincing along bilateral piriformis, bilateral hamstring, bilateral psoas. Joint Mobility Assessment Joint Mobility Assessment Minimal mobility through lumbar spine, majority of flexion movement comes from hips. PT-OP-G Mobility & Gait Start: 03/18/20 17:40 Freq: Status: Active Protocol: Document 03/18/20 14:30 DCW (Rec: 03/19/20 09:44 DCW [id number]) OP Gait Assessment Gait Gait Assistance Required: Standby Assistance Distance (Feet) 178 Able to Maintain Weight Bearing Status Yes During Gait Assistive Devices Assistive Device Gait Belt,4 Wheeled Walker Orthotic/Prosthetic Devices or Brace: No Gait Deviations General Gait Pattern Antalgic,Ataxic,Decreased Stride Length,Decreased Feet Clearance,Flexed Trunk,Wide Based Gait Factors Limiting Gait Function Factors Limiting Gait Function Decreased Activity Tolerance, Decreased Strength,Limited Range of Motion,Pain PT-OP-K Range of Motion Start: 03/18/20 17:40 Freq: Status: Active Protocol: Document 03/18/20 14:30 DCW (Rec: 03/19/20 09:44 DCW [id number]) Lumbar Spine Range of Motion Lumbar Spine Active Degrees Testing Position Standing Flexion 20 Extension 10 ROM Limitations Soft Tissue Tightness,Bony Restriction,Muscle Weakness, Muscle Tone,Pain Comments When attempting to stand upright, pt is still flexed forward 10?, and then despite appearing to have good forward flexion, his lumbar spine only flexes to 20?, and the remainder of the movement comes from his hip. PT-OP-M Strength Start: 03/18/20 17:40 Freq: Status: Active Protocol: Document 03/18/20 14:30 DCW (Rec: 03/19/20 17:21 DCW [id number]) Hip Strength Hip Manual Muscle Testing Right Flexion (L2) 3+ Fair+ Abduction 4 Good Adduction 4 Good Left Flexion (L2) 4+ Good+ Abduction 4+ Good+ Adduction 4+ Good+ Knee Strength Knee Manual Muscle Testing Right Flexion (S2) 4+ Good+ Extension (L3) 4+ Good+ Left Flexion (S2) 4+ Good+ Extension (L3) 4+ Good+ Ankle/Foot Strength Ankle and Foot Manual Muscle Testing Right Dorsiflexion (L4) 3+ Fair+ Plantarflexion (S1) 4 Good Left Dorsiflexion (L4) 4+ Good+ Plantarflexion (S1) 4+ Good+ PT-OP-Q Treatments Start: 03/18/20 17:40 Freq: Status: Active Protocol: Document 01/09/21 09:34 HH (Rec: 01/09/21 12:05 HH [id number]) Therapeutic Exercises Supine Exercises SLR Side bilateral Reps/Minutes 8 x2 knee to chest Reps/Minutes 10 sec hold x5 Nimesh Stretch Side bilateral Reps/Minutes 10sec hold x4 pelvic tilt Reps/Minutes 10 x2 bridging Side bilateral Comments unable to complete today d/t pain Manual Therapy Treatment Soft Tissue Mobilization QL Body Location L Mobilization Type Sustained Pressure,Trigger Point Release Intensity/Depth Moderate Body Position Sidelying Comments minimal tonicity at L QL today . PT-OP-R Modalities Start: 03/18/20 17:40 Freq: Status: Active Protocol: Document 12/23/20 10:33 HH (Rec: 12/23/20 10:33 HH [id number]) Electric Stimulation Electric Stimulation Interferential Current (IFC) Body Location lumbar Duration (Minutes) 10 Intensity 35 Target/Sweep Target High/Low High PT-OP-T Assessment and Plan Start: 03/18/20 17:40 Freq: Status: Active Protocol: Document 01/09/21 09:34 (Rec: 01/09/21 12:05 [id number]) Physical Therapy Assessment Rehab Potential Rehabilitation Potential Good Evaluation Complexity Number of Personal Factors/Comorbidities 1-2 Number of Body Systems Impaired 4 or More Clinical Presentation at Evaluation Stable Impairments Impairments Activity Tolerance,Balance, Functional Activities, Functional Mobility,Gait,ROM, Soft Tissue Mobility,Strength Goals stair climb Impairment pt needs B support for stair climb Short Term Goal (STG) 12/20 pt was able to toe tap on stairs w/o support in August but unable currently d/t recent flare up Data Processing Equipment Repairer Goal (LTG) pt will show improve single leg strength so he will be able to complete stair climb ( 3-5 steps) with a step to pattern without support. LTG Duration 8 weeks SL stance Impairment Pt is unable to complete SLS Short Term Goal (STG) 12/20 pt previously was able to hold up to 3 s bilaterally in August but multiple flare ups over the past few months. L= 0s, R= 3s pt will be able to complete SLS for 5s or more STG Duration 01/19/21 Halfway Goal (LTG) pt will be able to complete SLS for 10s or more in order for him to amb / turn without excessive lateral weight shift . LTG Duration 02/19/21 Two Impairment Pt ambulates 332' (1.43 ft/sec ) using a FWW during a Two Minute Walk Test Short Term Goal (STG) 12/20 Pt is unable to complete 6MWT, completed 208ft in 2minutes without AD d/t back pain. Pt will be able to amb with LRAD to complete the whole 6 MWT. STG Duration 01/19/21 Halfway Goal (LTG) 12 weeks Pt to complete a six minute walk test without AD for 800 ft. LTG Duration 02/19/21 One Impairment Pt does not have an appropriate home exercise program Short Term Goal (STG) 05/20 cont in progress pt stated that he is not that compliant with HEP but HEP did help him Pt to be independent and compliant with an appropriate HEP STG Duration 06/19 Progress Towards Goals Progress Towards Goals Slow Progress due to Activity Tolerance,Slow Progress due to Medical Issues,Slow Progress - Other Assessment Summary Assessment Pt has a flare up with his LBP after doing anti trunk extension exercises such as SLR, supine marches. Pt overall has very poor trunk anti extension stability. He had to be WC to his car at the end of session. Pt is going to participate pool classes twice a week for a month. Will f/u with him Physical Therapy Plan Frequency and Duration Frequency of Treatment 2x/Week Duration of Treatment 12 weeks Plan of Care Start Date 12/20/20 Plan of Care End Date 03/20/21 Next Visit Focus/Plan Next Note Type Treatment Note Next Visit Plan stretch, hip extension, SL stability toe tap, step up and kymberly ttrianing
--- NOTE | 2021-04-24 13:02 | PT.OPDS ---
Current Diagnoses Foot drop, right foot (01/09/21) Stiffness of unspecified joint, not elsewhere classified (01/09/21) Stiffness of right hip, not elsewhere classified (01/09/21) Stiffness of left hip, not elsewhere classified (01/09/21) Radiculopathy, lumbar region (01/09/21) Muscle weakness (generalized) (01/09/21) Other abnormalities of gait and mobility (01/09/21) Visit Care Team Role Provider Type Robin Lee MD Family Provider Physician Primary Care Provider Specialty: Internal Medicine Address: [address] [place] [address], [id number] Email: [email or web address] Shaka Reeves MD Attending Provider Non-Staff Referring Provider Specialty: Medical Address: [address] [place] [address], [phone] Email: Visit Number Visit Number 50 Discharge Summary PT-OP-T Assessment and Plan Start: 03/18/20 17:40 Freq: Status: Active Protocol: Document 04/24/21 13:01 (Rec: 04/24/21 13:02 [id number]) Physical Therapy Plan Discharge Physical Therapy Discharge Reasons No Longer Attending PT Discharge Comments per EMR, pt has been participating aquatic class at [facility]. He is no longer attending PT at this point. DC from PT today
== END 2021-04-24 15:03 | disposition home or self-care (01) ==
LOC: PHYS 09:45
PROVIDERS: Family Provider Internal Medicine; PCP Internal Medicine; Referring Provider Orthopaedic Surgery; Visit Provider Orthopaedic Surgery
DX: M54.16 Radiculopathy, lumbar region (principal); M25.652 Stiffness of left hip, not elsewhere classified; M25.651 Stiffness of right hip, not elsewhere classified; M25.60 Stiffness of unspecified joint, not elsewhere classified; M62.81 Muscle weakness (generalized); R26.89 Other abnormalities of gait and mobility; M21.371 Foot drop, right foot
CPT/HCPCS: 97010; 97110; 97112; 97116; 97140; 97161; 97530; 97535

== ENCOUNTER → 2021-01-28 08:12 | Outpatient (CLI) | payer MEDICARE, OTHER, SELFPAY ==
[2021-01-28 09:51] LABS: BUN Creatinine Ratio 16.5 (6-22); Blood Urea Nitrogen 18 mg/dL (9-20); Calcium 9.7 mg/dL (8.4-10.2); Carbon Dioxide 26 mmol/L (22-32); Chloride 106 mmol/L (98-107); Estimated Glomerular Filt Rate > 60.0 mL/min (>60); Glucose 110 mg/dL (80-110); HEMOLYSIS < 15 (0-50); Potassium 4.5 mmol/L (3.4-5.1); Sodium 139 mmol/L (137-145)
== END ==
PROVIDERS: Family Provider Internal Medicine; PCP Family Medicine; Referring Provider Internal Medicine; Visit Provider Internal Medicine
DX: I25.10 Atherosclerotic heart disease of native coronary artery without angina pectoris (principal); M15.0 Primary generalized (osteo)arthritis
CPT/HCPCS: 36415; 80048

== ENCOUNTER → 2021-05-23 08:18 | Outpatient (CLI) | payer MEDICARE, OTHER, SELFPAY ==
[2021-05-23 10:10] LABS: Cholesterol 247 mg/dL (140-199); HDL Cholesterol 40 mg/dL (40-60); LDL Cholesterol Calculated 158 mg/dL (<100); Triglycerides 247 mg/dL (35-150)
== END ==
PROVIDERS: Family Provider Internal Medicine; PCP Family Medicine; Referring Provider Internal Medicine Cardiovascular Disease; Visit Provider Internal Medicine Cardiovascular Disease
DX: E78.5 Hyperlipidemia, unspecified (principal)
CPT/HCPCS: 36415; 80061

== ENCOUNTER → 2021-07-07 14:28 | Outpatient (CLI) | payer MEDICARE, OTHER, SELFPAY ==
[2021-07-07 16:31] LABS: COVID19 -Nasal RAPID Negative (Negative)
== END ==
PROVIDERS: Family Provider Internal Medicine; PCP Family Medicine; Visit Provider Physician Assistant
DX: Z20.822 Contact with and (suspected) exposure to COVID-19 (principal); Z01.812 Encounter for preprocedural laboratory examination
CPT/HCPCS: 87635; C9803

== ENCOUNTER → 2021-07-09 09:22 | Outpatient (CLI) | payer MEDICARE, OTHER, SELFPAY ==
--- NOTE | 2021-07-09 09:24 | DI.NM.S_ITS ---
PROCEDURE: NM ANDREA PERF SPECT R&S PHARM Rest and pharmacological stress myocardial perfusion SPECT with gated imaging and ejection fraction RADIOPHARMACEUTICAL: 26.8 mCi Tc-99m tetrafosmin IV at rest and 25.9 mCi Tc-99m tetrafosmin IV at peak effect of pharmacological stress. [id number] was performed. INDICATIONS: Atherosclerosis of coronary artery bypass graft(s) TECHNIQUE: Radiopharmaceutical was injected at peak stress test, and also at rest. SPECT images were obtained. SPECT myocardial perfusion images were displayed in short axis, horizontal long axis, and vertical long axis views. Gated images were reviewed using [employer] software. COMPARISON: None. CARDIAC STRESS: A pharmacologic stress test was performed under the supervision of an attending staff, using an infusion of regadenoson. Hemodynamic data: There is normal blood pressure and heart rate response to pharmacologic stress. Symptoms: The patient denied anginal chest pain. EKG: No diagnostic changes of ischemia; rare PACs. FINDINGS: Raw data: There is good myocardial uptake of radiotracer. No significant motion artifacts. Qzqo-[id number] ratio is 0.4 (normal is less than 0.38 for tetrafosmin tracer). Left ventricle function: Gated images demonstrate normal left ventricular wall thickening. No segmental wall motion abnormalities. No transient ischemic dilation; TID is 0.95 (normal less than 1.3). Left ventricle resting end diastolic volume is 127 mL. Left ventricle stress ejection fraction is 75%; normal range is above 45%. Myocardial perfusion: There is a small size, moderate intensity fixed apical wall defect that is worse in the resting images when compared to stress images. This area has preserved wall motion and is most consistent with apical thinning rather than inducible ischemia. No prone images obtained. IMPRESSION: 1. Likely low risk study with a small, fixed apical defect that is worse in the resting images and has preserved wall motion making it most consistent with apical thinning. 2. Increased LV EDV at 127 mL. 3. Calculated ejection fraction 75%. Dictated by: Carey Jonas D.O. on 07/10/2021 at 14:31 Approved by: Carey Jonas M.D. on 07/10/2021 at 14:35
== END ==
PROVIDERS: Family Provider Internal Medicine; PCP Family Medicine; Referring Provider Internal Medicine Cardiovascular Disease; Visit Provider Internal Medicine Cardiovascular Disease
DX: I25.810 Atherosclerosis of coronary artery bypass graft(s) without angina pectoris (principal)
CPT/HCPCS: 78452; 93017; A9502; J2785

== ENCOUNTER 2022-08-05 12:30 | Outpatient (RCR) | payer MEDICARE, OTHER, SELFPAY ==
--- NOTE | 2021-07-15 17:27 | PT.OIE ---
Current Diagnoses Spondylosis without myelopathy or radiculopathy, lumbar region (07/15/21) Past Medical History (Last Updated 11/04/20 @ 12:24 by Benjamin Aguilera DO) Blood clotting disorder BPH (benign prostatic hyperplasia) CAD (coronary artery disease) History of pulmonary embolism History of total left knee replacement Obesity Past Surgical History (Last Updated 04/23/20 @ 15:37 by Benjamin Aguilera DO) History of total left knee replacement Visit Care Team Role Provider Type Benjamin Aguilera DO Primary Care Provider Physician Specialty: Family Practice Address: [address] [place] [address], [id number] Email: [email or web address] Robin Lee MD Family Provider Physician Specialty: Internal Medicine Address: [address] [place] [address], [id number] Email: [email or web address] Attending Provider Non-Staff Referring Provider Specialty: Medical Address: [address] [place] [address], [address], [facility] Email: Physical Therapy Initial Evaluation PT-OP-A Visit Information Start: 07/15/21 16:54 Freq: Status: Active Protocol: Document 07/15/21 16:54 (Rec: 07/15/21 17:27 [id number]) Out-Patient Physical Therapy Visit Information Visit Information Visit Type Initial Evaluation Visit Start Time 13:45 Visit Stop Time 14:30 Total Visit Minutes 45 Visit Number Number of FARROWING MANAGER Visits 0 Evaluation Information Evaluation Date 07/15/21 PT-OP-B Current Condition Start: 07/15/21 16:54 Freq: Status: Active Protocol: Document 07/15/21 16:54 (Rec: 07/15/21 17:27 [id number]) Current Condition History of Current Condition Onset Date 2019 Current Complaints chronic back pain, weakness, difficulty in walking History of Current Condition Toribio is a 71 yo returning patient here for his debilitating chronic LBP. He had L4-L5 microdisectomy last year for his L4L5 ruptured disc. He then had significant loss of mobility and strength who now uses 4WW for all mobility. He bascially cannot stand straight and lay in prone position. He walks with a flexed posture to alleviate his pain. He saw his surgeon 2 months ago and did not recommend further back surgery. He had a course of PT with me but only limited progress (able to use hiking sticks to walk at one point). He has been going to the pool for water walking, mobility exercises and has been helpful for his strnegth and balance. He would like to do PT again to participate both land and aquative therapy. Personal Factors Other Personal Factors That May Effect overweight Therapy/Recovery previous heart attack CABG placement chronic back pain PT-OP-C Subjective Start: 07/15/21 16:54 Freq: Status: Active Protocol: Document 07/15/21 16:54 HH (Rec: 07/15/21 17:27 [id number]) Patient Questionnaires Oswestry Low Back Index Oswestry Score 56 Oswestry Impairment 40 to 59% Impaired (Score 40- 59) PT-OP-D Balance Start: 07/15/21 16:54 Freq: Status: Active Protocol: Document 07/15/21 16:54 HH (Rec: 07/15/21 17:27 [id number]) Balance Tests Single Limb Standing Single Limb- Right unable Single Limb- Left unable PT-OP-G Mobility & Gait Start: 07/15/21 16:54 Freq: Status: Active Protocol: Document 07/15/21 16:54 HH (Rec: 07/15/21 17:27 [id number]) OP Mobility Evaluation Bed Mobility Supine to and from Sit log roll method OP Gait Assessment Gait Gait Assistance Required: Independent Assistive Devices Assistive Device 4 Wheeled Walker Gait Deviations General Gait Pattern Flexed Trunk Factors Limiting Gait Function Factors Limiting Gait Function Limited Range of Motion,Pain Comments Gait Comments pt walks wth a significant flexed posture with a hyperextended lumbar spine. He often has to stop to keep his walker close to his body. PT-OP-H Neuro Start: 07/15/21 16:54 Freq: Status: Active Protocol: Document 07/15/21 16:54 HH (Rec: 07/15/21 17:27 [id number]) Sensation Evaluation Gross Sensation Gross Sensation WNL Deep Tendon Reflex & Clonus Assessment Deep Tendon Reflex Bilateral Achilles Deep Tendon Reflex 2+ Normal Right Patellar Deep Tendon Reflex 2+ Normal Left Patellar Deep Tendon Reflex 0 Absent PT-OP-J Posture/Palpation/Skin Start: 07/15/21 16:54 Freq: Status: Active Protocol: Document 07/15/21 16:54 HH (Rec: 07/15/21 17:27 [id number]) Posture Evaluation Position Standing T-Spine Posture Increased Kyphosis L-Spine Posture Increased Lordosis,Flexed Hip Posture (L) Flexed,(R) Flexed Knee Posture (L) Excess Flexion,(R) Excess Flexion PT-OP-K Range of Motion Start: 07/15/21 16:54 Freq: Status: Active Protocol: Document 07/15/21 16:54 HH (Rec: 07/15/21 17:27 [id number]) Lumbar Spine Range of Motion Lumbar Spine Active Degrees Comments hip angle in standing (normal posture) = 28 degrees in flexion hip angle in standing ( extended posture) = 25 degrees in flexion, pain at low back. PT-OP-L Special Tests Start: 07/15/21 16:54 Freq: Status: Active Protocol: Document 07/15/21 16:54 HH (Rec: 07/15/21 17:27 [id number]) Special Tests Lumbar Spine Special Tests Slump Test Results -ve Straight Leg Raise Test Results -ve Comments no rad pain but extension pain with SLR on R. PT-OP-M Strength Start: 07/15/21 16:54 Freq: Status: Active Protocol: Document 07/15/21 16:54 (Rec: 07/15/21 17:27 [id number]) Hip Strength Hip Manual Muscle Testing Right Flexion (L2) 3+ Fair+ Extension (S1) 4- Good- Abduction 4- Good- Adduction 4- Good- Comments low back pain with SLR flexion Left Flexion (L2) 4- Good- Extension (S1) 4- Good- Abduction 4+ Good+ Adduction 4+ Good+ Knee Strength Knee Manual Muscle Testing Right Flexion (S2) 5 Normal Extension (L3) 5 Normal Left Flexion (S2) 5 Normal Extension (L3) 5 Normal Ankle/Foot Strength Ankle and Foot Manual Muscle Testing Right Dorsiflexion (L4) 5 Normal Plantarflexion (S1) 5 Normal Left Dorsiflexion (L4) 5 Normal Plantarflexion (S1) 5 Normal PT-OP-Q Treatments Start: 07/15/21 16:54 Freq: Status: Active Protocol: Document 07/15/21 16:54 (Rec: 07/15/21 17:27 [id number]) Therapeutic Exercises Supine Exercises knee to chest Supine Exercise Name unilateral Side bilateral Reps/Minutes 20s x 5 Comments for HEP, rpeorts of pulling sensation on lumbar PT-OP-T Assessment and Plan Start: 07/15/21 16:54 Freq: Status: Active Protocol: Document 07/15/21 16:54 (Rec: 07/15/21 17:27 [id number]) Physical Therapy Assessment Rehab Potential Rehabilitation Potential Fair Evaluation Complexity Number of Personal Factors/Comorbidities 3 or More Number of Body Systems Impaired 3 Clinical Presentation at Evaluation Stable Impairments Impairments Activity Tolerance,Balance, Functional Activities, Functional Mobility,Gait,Pain, Posture,ROM,Soft Tissue Mobility,Strength,Transfers Goals walk Impairment pt uses 4ww all time Short Term Goal (STG) pt will be able to walk with 2 hiking poles within home distance STG Duration 6 weeks Fci Goal (LTG) pt will be able to walk with 2 hiking poles at home and community LTG Duration 12 weeks hip angle Impairment pt has a 28 degrees hip flexion angle in standing Short Term Goal (STG) pt will show improved lumbar mobility and tolerance for WB activities who will be able to stand with <25 degrees hip flexion. STG Duration 6 weeks Associate Professor Goal (LTG) pt will show improved lumbar mobility and tolerance for WB activities who will be able to stand with <25 degrees hip flexion. LTG Duration 12 weeks Owestry Impairment pt scores 56 Short Term Goal (STG) pt will show improved overall mobility and strength by scoring <50 on Owestry STG Duration 6 weeks Associate Professor Goal (LTG) pt will show improved overall mobility and strength by scoring <40 on Owestry LTG Duration 12 weeks Assessment Summary Assessment Toribio is a 71yo returning pt for his chronic LBP. He had microdiscectomy last year for his ruptured L4L5 but poor outcome. He was also told that he has another protrusion at another level but further surgery was not recommended. Upon assessment, pt has close to none lumbar segmental flexion. He maintains his lumbar spine hyperextended in all positions but he has no pain with bend over movements. He also doesnt have sensation loss/foot drop / significant weakness like last year. I believe pt will benefit from both aquatic and land skilled therapy to address his lumbar segmental mobility and increase his WB activties tolerance. Physical Therapy Plan Frequency and Duration Frequency of Treatment 2x/Week Duration of Treatment 12 weeks Plan of Care Start Date 07/15/21 Plan of Care End Date 10/13/21 Therapeutic Interventions Therapeutic Interventions Aquatic Therapy,Balance Training,Gait Training,Home Exercise Program,Joint Mobilizations,Manual Therapy, Neuromuscular Re-education, Patient/Caregiver Education, Self-Care/Home Management,Soft Tissue Mobilization,Taping, Therapeutic Activities, Therapeutic Exercises Modalities Cold Pack/Ice Massage,Electric Stimulation,Hot Packs, Infrared Therapy,Paraffin Bath ,Traction- Mechanical, Ultrasound Next Visit Focus/Plan Next Note Type Treatment Note Next Visit Plan start with biking knee to chest pelvic tilt LTR
--- NOTE | 2021-07-15 17:27 | PT.OPPOC ---
Physical, Occupational & Speech Therapy At [facility] Current Diagnoses Spondylosis without myelopathy or radiculopathy, lumbar region (07/15/21) Visit Care Team Role Provider Type Benjamin Aguilera DO Primary Care Provider Physician Specialty: Family Practice Address: [address] [place] [address], [id number] Email: [email or web address] Robin Lee MD Family Provider Physician Specialty: Internal Medicine Address: [address] [place] [address], [address] Email: [email or web address] AMADA Knox Attending Provider Non-Staff Referring Provider Specialty: Medical Address: [address] [place] [address], [address], [facility] Email: Plan Of Care PT-OP-T Assessment and Plan Start: 07/15/21 16:54 Freq: Status: Active Protocol: Document 07/15/21 16:54 (Rec: 07/15/21 17:27 [id number]) Physical Therapy Assessment Rehab Potential Rehabilitation Potential Fair Evaluation Complexity Number of Personal Factors/Comorbidities 3 or More Number of Body Systems Impaired 3 Clinical Presentation at Evaluation Stable Impairments Impairments Activity Tolerance,Balance, Functional Activities, Functional Mobility,Gait,Pain, Posture,ROM,Soft Tissue Mobility,Strength,Transfers Goals walk Impairment pt uses 4ww all time Short Term Goal (STG) pt will be able to walk with 2 hiking poles within home distance STG Duration 6 weeks Longterm Goal (LTG) pt will be able to walk with 2 hiking poles at home and community LTG Duration 12 weeks hip angle Impairment pt has a 28 degrees hip flexion angle in standing Short Term Goal (STG) pt will show improved lumbar mobility and tolerance for WB activities who will be able to stand with <25 degrees hip flexion. STG Duration 6 weeks Exercise Physiology Professor Goal (LTG) pt will show improved lumbar mobility and tolerance for WB activities who will be able to stand with <25 degrees hip flexion. LTG Duration 12 weeks Owestry Impairment pt scores 56 Short Term Goal (STG) pt will show improved overall mobility and strength by scoring <50 on Owestry STG Duration 6 weeks Longterm Goal (LTG) pt will show improved overall mobility and strength by scoring <40 on Owestry LTG Duration 12 weeks Assessment Summary Assessment Toribio is a 71yo returning pt for his chronic LBP. He had microdiscectomy last year for his ruptured L4L5 but poor outcome. He was also told that he has another protrusion at another level but further surgery was not recommended. Upon assessment, pt has close to none lumbar segmental flexion. He maintains his lumbar spine hyperextended in all positions but he has no pain with bend over movements. He also doesnt have sensation loss/foot drop / significant weakness like last year. I believe pt will benefit from both aquatic and land skilled therapy to address his lumbar segmental mobility and increase his WB activties tolerance. Physical Therapy Plan Frequency and Duration Frequency of Treatment 2x/Week Duration of Treatment 12 weeks Plan of Care Start Date 07/15/21 Plan of Care End Date 10/13/21 Therapeutic Interventions Therapeutic Interventions Aquatic Therapy,Balance Training,Gait Training,Home Exercise Program,Joint Mobilizations,Manual Therapy, Neuromuscular Re-education, Patient/Caregiver Education, Self-Care/Home Management,Soft Tissue Mobilization,Taping, Therapeutic Activities, Therapeutic Exercises Modalities Cold Pack/Ice Massage,Electric Stimulation,Hot Packs, Infrared Therapy,Paraffin Bath ,Traction- Mechanical, Ultrasound Next Visit Focus/Plan Next Note Type Treatment Note Next Visit Plan start with biking knee to chest pelvic tilt LTR Plan of Care Dates Plan of Care Start Date 07/15/21 Plan of Care End Date 10/13/21 Electronically Signed by: Willie Uribe, PT 07/15/21 [id number] Please Sign and Return: I have reviewed this Plan of Care and certify that the skilled therapy services above are required to meet the patient?s needs. Physician Signature Date Printed Name and Credentials Clinical Instructor Signature Printed Name and Credentials
--- NOTE | 2021-09-17 15:53 | PT.OTN ---
Current Diagnoses Spondylosis without myelopathy or radiculopathy, lumbar region (07/15/21) Physical Therapy Treatment Note PT-OP-A Visit Information Start: 07/15/21 16:54 Freq: Status: Active Protocol: Document 09/17/21 15:27 BRET (Rec: 09/17/21 15:52 LJ [id number]) Out-Patient Physical Therapy Visit Information Visit Information Visit Type Aquatic Treatment Note Visit Start Time 12:30 Visit Stop Time 01:15 Total Visit Minutes 45 Visit Number Number of INFUSION RN Visits 1 PT-OP-B Current Condition Start: 07/15/21 16:54 Freq: Status: Active Protocol: Document 07/15/21 16:54 HH (Rec: 07/15/21 17:27 HH [id number]) Current Condition History of Current Condition Onset Date 2019 Current Complaints chronic back pain, weakness, difficulty in walking History of Current Condition Toribio is a 71 yo returning patient here for his debilitating chronic LBP. He had L4-L5 microdisectomy last year for his L4L5 ruptured disc. He then had significant loss of mobility and strength who now uses 4WW for all mobility. He bascially cannot stand straight and lay in prone position. He walks with a flexed posture to alleviate his pain. He saw his surgeon 2 months ago and did not recommend further back surgery. He had a course of PT with me but only limited progress (able to use hiking sticks to walk at one point). He has been going to the pool for water walking, mobility exercises and has been helpful for his strnegth and balance. He would like to do PT again to participate both land and aquative therapy. Personal Factors Other Personal Factors That May Effect overweight Therapy/Recovery previous heart attack CABG placement chronic back pain PT-OP-C Subjective Start: 07/15/21 16:54 Freq: Status: Active Protocol: Document 09/17/21 15:27 BRET (Rec: 09/17/21 15:52 LJ [id number]) OP-PT Subjective Patient Comments Patient Comments Pt states he has lost strength in the last several months due to inactivity. PT-OP-D Balance Start: 07/15/21 16:54 Freq: Status: Active Protocol: Document 07/15/21 16:54 HH (Rec: 07/15/21 17:27 HH [id number]) Balance Tests Single Limb Standing Single Limb- Right unable Single Limb- Left unable PT-OP-G Mobility & Gait Start: 07/15/21 16:54 Freq: Status: Active Protocol: Document 07/15/21 16:54 (Rec: 07/15/21 17:27 [id number]) OP Mobility Evaluation Bed Mobility Supine to and from Sit log roll method OP Gait Assessment Gait Gait Assistance Required: Independent Assistive Devices Assistive Device 4 Wheeled Walker Gait Deviations General Gait Pattern Flexed Trunk Factors Limiting Gait Function Factors Limiting Gait Function Limited Range of Motion,Pain Comments Gait Comments pt walks wth a significant flexed posture with a hyperextended lumbar spine. He often has to stop to keep his walker close to his body. PT-OP-H Neuro Start: 07/15/21 16:54 Freq: Status: Active Protocol: Document 07/15/21 16:54 (Rec: 07/15/21 17:27 [id number]) Sensation Evaluation Gross Sensation Gross Sensation WNL Deep Tendon Reflex & Clonus Assessment Deep Tendon Reflex Bilateral Achilles Deep Tendon Reflex 2+ Normal Right Patellar Deep Tendon Reflex 2+ Normal Left Patellar Deep Tendon Reflex 0 Absent PT-OP-J Posture/Palpation/Skin Start: 07/15/21 16:54 Freq: Status: Active Protocol: Document 07/15/21 16:54 (Rec: 07/15/21 17:27 [id number]) Posture Evaluation Position Standing T-Spine Posture Increased Kyphosis L-Spine Posture Increased Lordosis,Flexed Hip Posture (L) Flexed,(R) Flexed Knee Posture (L) Excess Flexion,(R) Excess Flexion PT-OP-K Range of Motion Start: 07/15/21 16:54 Freq: Status: Active Protocol: Document 07/15/21 16:54 (Rec: 07/15/21 17:27 [id number]) Lumbar Spine Range of Motion Lumbar Spine Active Degrees Comments hip angle in standing (normal posture) = 28 degrees in flexion hip angle in standing ( extended posture) = 25 degrees in flexion, pain at low back. PT-OP-L Special Tests Start: 07/15/21 16:54 Freq: Status: Active Protocol: Document 07/15/21 16:54 (Rec: 07/15/21 17:27 [id number]) Special Tests Lumbar Spine Special Tests Slump Test Results -ve Straight Leg Raise Test Results -ve Comments no rad pain but extension pain with SLR on R. PT-OP-M Strength Start: 07/15/21 16:54 Freq: Status: Active Protocol: Document 07/15/21 16:54 HH (Rec: 07/15/21 17:27 HH [id number]) Hip Strength Hip Manual Muscle Testing Right Flexion (L2) 3+ Fair+ Extension (S1) 4- Good- Abduction 4- Good- Adduction 4- Good- Comments low back pain with SLR flexion Left Flexion (L2) 4- Good- Extension (S1) 4- Good- Abduction 4+ Good+ Adduction 4+ Good+ Knee Strength Knee Manual Muscle Testing Right Flexion (S2) 5 Normal Extension (L3) 5 Normal Left Flexion (S2) 5 Normal Extension (L3) 5 Normal Ankle/Foot Strength Ankle and Foot Manual Muscle Testing Right Dorsiflexion (L4) 5 Normal Plantarflexion (S1) 5 Normal Left Dorsiflexion (L4) 5 Normal Plantarflexion (S1) 5 Normal PT-OP-Q Treatments Start: 07/15/21 16:54 Freq: Status: Active Protocol: Document 07/15/21 16:54 (Rec: 07/15/21 17:27 [id number]) Therapeutic Exercises Supine Exercises knee to chest Supine Exercise Name unilateral Side bilateral Reps/Minutes 20s x 5 Comments for HEP, rpeorts of pulling sensation on lumbar PT-OP-S Aquatic Treatment Start: 07/15/21 16:54 Freq: Status: Active Protocol: Document 09/17/21 15:27 BRET (Rec: 09/17/21 15:52 LJ [id number]) Aquatics Treatment Pool Entry/Exit Pool Entry/Exit Method Stairs Assistance Independent Water Walking Lunge Walk Water Level Waist Level Comments difficulty with coordination [place] March Water Level Chest Level Marching Water Level Chest Level Comments cues for recip arms Sideways Water Level Chest Level Comments hor AB/AD arms Backwards Water Level Chest Level Level of Assistance Verbal Cues Comments cues for posture Forwards Water Level Chest Level Level of Assistance Verbal Cues Comments cues for posture Lower Extremity Exercises squats Details holding onto wall Body Position Standing Water Level Waist Level Reps/Duration [address] hip Details holding onto wall Body Position Standing Water Level Waist Level Reps/Duration 10 ea B Comments cues for posture Lower Extremity Stretches DKTC/SKTC Details at wall Reps/Duration x2 ~20 sec, difficulty with DKTC Comments difficulty with DKTC quads, HS, hip flexors Body Position Standing Reps/Duration 2 x 30 B Upper Extremity Exercises flex/ext Body Position Standing Water Level Chest Level Reps/Duration 15 HAB AD Body Position Standing Water Level Chest Level Reps/Duration 15 Spinal Exercises trunk rotation Body Position Standing Water Level Chest Level Reps/Duration 15 Comments emphasis core stabilization Balance step up on boxes Water Level Chest Level Reps/Duration 5 min Comments right leg more difficult [place] Activities [place] Activities Bicycle,Bicycle Backwards, Cross Country,Hip Abduction/ Adduction Equipment 2 belts, med BBs Duration 10 min Comments pt with difficulty in coordination bicycling backwards PT-OP-T Assessment and Plan Start: 07/15/21 16:54 Freq: Status: Active Protocol: Document 09/17/21 15:27 BRET (Rec: 09/17/21 15:52 BRET [id number]) Physical Therapy Assessment Rehab Potential Rehabilitation Potential Fair Evaluation Complexity Number of Personal Factors/Comorbidities 3 or More Number of Body Systems Impaired 3 Clinical Presentation at Evaluation Stable Impairments Impairments Activity Tolerance,Balance, Functional Activities, Functional Mobility,Gait,Pain, Posture,ROM,Soft Tissue Mobility,Strength,Transfers Goals walk Impairment pt uses 4ww all time Short Term Goal (STG) pt will be able to walk with 2 hiking poles within home distance STG Duration 6 weeks Snf Goal (LTG) pt will be able to walk with 2 hiking poles at home and community LTG Duration 12 weeks hip angle Impairment pt has a 28 degrees hip flexion angle in standing Short Term Goal (STG) pt will show improved lumbar mobility and tolerance for WB activities who will be able to stand with <25 degrees hip flexion. STG Duration 6 weeks Snf Goal (LTG) pt will show improved lumbar mobility and tolerance for WB activities who will be able to stand with <25 degrees hip flexion. LTG Duration 12 weeks Owestry Impairment pt scores 56 Short Term Goal (STG) pt will show improved overall mobility and strength by scoring <50 on Owestry STG Duration 6 weeks Snf Goal (LTG) pt will show improved overall mobility and strength by scoring <40 on Owestry LTG Duration 12 weeks Assessment Summary Assessment Pt has been sedentary for the past several months and has become deconditioned. He had previous experience in aquatic therapy and is aware of exercises and how he had an easier time previously. It is anticipated that, with consistant exercise, he will improve with strength, balance , and endurance. Physical Therapy Plan Frequency and Duration Frequency of Treatment 2x/Week Duration of Treatment 12 weeks Plan of Care Start Date 07/15/21 Plan of Care End Date 10/13/21 Therapeutic Interventions Therapeutic Interventions Aquatic Therapy,Balance Training,Gait Training,Home Exercise Program,Joint Mobilizations,Manual Therapy, Neuromuscular Re-education, Patient/Caregiver Education, Self-Care/Home Management,Soft Tissue Mobilization,Taping, Therapeutic Activities, Therapeutic Exercises Modalities Cold Pack/Ice Massage,Electric Stimulation,Hot Packs, Infrared Therapy,Paraffin Bath ,Traction- Mechanical, Ultrasound Next Visit Focus/Plan Next Note Type Treatment Note
--- NOTE | 2021-09-24 15:08 | PT.OTN ---
Current Diagnoses Spondylosis without myelopathy or radiculopathy, lumbar region (09/17/21) Physical Therapy Treatment Note PT-OP-A Visit Information Start: 07/15/21 16:54 Freq: Status: Active Protocol: Document 09/24/21 14:53 BRET (Rec: 09/24/21 15:07 LJ [id number]) Out-Patient Physical Therapy Visit Information Visit Information Visit Type Aquatic Treatment Note Visit Start Time 12:30 Visit Stop Time 01:15 Total Visit Minutes 45 Visit Number 3 Number of TUNGSTEN TENDER Visits 2 PT-OP-B Current Condition Start: 07/15/21 16:54 Freq: Status: Active Protocol: Document 07/15/21 16:54 HH (Rec: 07/15/21 17:27 HH [id number]) Current Condition History of Current Condition Onset Date 2019 Current Complaints chronic back pain, weakness, difficulty in walking History of Current Condition Toribio is a 71 yo returning patient here for his debilitating chronic LBP. He had L4-L5 microdisectomy last year for his L4L5 ruptured disc. He then had significant loss of mobility and strength who now uses 4WW for all mobility. He bascially cannot stand straight and lay in prone position. He walks with a flexed posture to alleviate his pain. He saw his surgeon 2 months ago and did not recommend further back surgery. He had a course of PT with me but only limited progress (able to use hiking sticks to walk at one point). He has been going to the pool for water walking, mobility exercises and has been helpful for his strnegth and balance. He would like to do PT again to participate both land and aquative therapy. Personal Factors Other Personal Factors That May Effect overweight Therapy/Recovery previous heart attack CABG placement chronic back pain PT-OP-C Subjective Start: 07/15/21 16:54 Freq: Status: Active Protocol: Document 09/24/21 14:53 BRET (Rec: 09/24/21 15:07 LJ [id number]) OP-PT Subjective Patient Comments Patient Comments Pt states he is going to the pool for at least 30 min 3/wk for the past 2 weeks. He feels his strength is improving. PT-OP-D Balance Start: 07/15/21 16:54 Freq: Status: Active Protocol: Document 07/15/21 16:54 HH (Rec: 07/15/21 17:27 [id number]) Balance Tests Single Limb Standing Single Limb- Right unable Single Limb- Left unable PT-OP-G Mobility & Gait Start: 07/15/21 16:54 Freq: Status: Active Protocol: Document 07/15/21 16:54 (Rec: 07/15/21 17:27 [id number]) OP Mobility Evaluation Bed Mobility Supine to and from Sit log roll method OP Gait Assessment Gait Gait Assistance Required: Independent Assistive Devices Assistive Device 4 Wheeled Walker Gait Deviations General Gait Pattern Flexed Trunk Factors Limiting Gait Function Factors Limiting Gait Function Limited Range of Motion,Pain Comments Gait Comments pt walks wth a significant flexed posture with a hyperextended lumbar spine. He often has to stop to keep his walker close to his body. PT-OP-H Neuro Start: 07/15/21 16:54 Freq: Status: Active Protocol: Document 07/15/21 16:54 (Rec: 07/15/21 17:27 [id number]) Sensation Evaluation Gross Sensation Gross Sensation WNL Deep Tendon Reflex & Clonus Assessment Deep Tendon Reflex Bilateral Achilles Deep Tendon Reflex 2+ Normal Right Patellar Deep Tendon Reflex 2+ Normal Left Patellar Deep Tendon Reflex 0 Absent PT-OP-J Posture/Palpation/Skin Start: 07/15/21 16:54 Freq: Status: Active Protocol: Document 07/15/21 16:54 (Rec: 07/15/21 17:27 [id number]) Posture Evaluation Position Standing T-Spine Posture Increased Kyphosis L-Spine Posture Increased Lordosis,Flexed Hip Posture (L) Flexed,(R) Flexed Knee Posture (L) Excess Flexion,(R) Excess Flexion PT-OP-K Range of Motion Start: 07/15/21 16:54 Freq: Status: Active Protocol: Document 07/15/21 16:54 (Rec: 07/15/21 17:27 [id number]) Lumbar Spine Range of Motion Lumbar Spine Active Degrees Comments hip angle in standing (normal posture) = 28 degrees in flexion hip angle in standing ( extended posture) = 25 degrees in flexion, pain at low back. PT-OP-L Special Tests Start: 07/15/21 16:54 Freq: Status: Active Protocol: Document 07/15/21 16:54 (Rec: 07/15/21 17:27 [id number]) Special Tests Lumbar Spine Special Tests Slump Test Results -ve Straight Leg Raise Test Results -ve Comments no rad pain but extension pain with SLR on R. PT-OP-M Strength Start: 07/15/21 16:54 Freq: Status: Active Protocol: Document 07/15/21 16:54 HH (Rec: 07/15/21 17:27 [id number]) Hip Strength Hip Manual Muscle Testing Right Flexion (L2) 3+ Fair+ Extension (S1) 4- Good- Abduction 4- Good- Adduction 4- Good- Comments low back pain with SLR flexion Left Flexion (L2) 4- Good- Extension (S1) 4- Good- Abduction 4+ Good+ Adduction 4+ Good+ Knee Strength Knee Manual Muscle Testing Right Flexion (S2) 5 Normal Extension (L3) 5 Normal Left Flexion (S2) 5 Normal Extension (L3) 5 Normal Ankle/Foot Strength Ankle and Foot Manual Muscle Testing Right Dorsiflexion (L4) 5 Normal Plantarflexion (S1) 5 Normal Left Dorsiflexion (L4) 5 Normal Plantarflexion (S1) 5 Normal PT-OP-Q Treatments Start: 07/15/21 16:54 Freq: Status: Active Protocol: Document 07/15/21 16:54 (Rec: 07/15/21 17:27 [id number]) Therapeutic Exercises Supine Exercises knee to chest Supine Exercise Name unilateral Side bilateral Reps/Minutes 20s x 5 Comments for HEP, rpeorts of pulling sensation on lumbar PT-OP-S Aquatic Treatment Start: 07/15/21 16:54 Freq: Status: Active Protocol: Document 09/24/21 14:53 BRET (Rec: 09/24/21 15:07 BRET [id number]) Aquatics Treatment Pool Entry/Exit Pool Entry/Exit Method Stairs Assistance Independent Water Walking stop/start with direction change Water Level Chest Level Comments 3 min Lunge Walk Water Level Waist Level Comments difficulty with coordination [place] March Water Level Chest Level Marching Water Level Chest Level Comments cues for recip arms Sideways Water Level Chest Level Comments hor AB/AD arms Backwards Water Level Chest Level Level of Assistance Verbal Cues Comments cues for posture Forwards Water Level Chest Level Level of Assistance Verbal Cues Comments cues for posture Lower Extremity Exercises squats Details holding onto wall Body Position Standing Water Level Waist Level Reps/Duration [address] hip Details holding onto wall Body Position Standing Water Level Waist Level Reps/Duration 10 ea B Comments cues for posture Lower Extremity Stretches DKTC/SKTC Details at wall Reps/Duration x2 ~20 sec, difficulty with DKTC Comments difficulty with DKTC quads, HS, hip flexors Body Position Standing Reps/Duration 2 x 30 B Upper Extremity Exercises flex/ext Body Position Standing Water Level Chest Level Reps/Duration 15 HAB AD Body Position Standing Water Level Chest Level Reps/Duration 15 Balance SLS Water Level Chest Level Reps/Duration 18 sec B Comments cues to stand tall step up on boxes Water Level Chest Level Reps/Duration 5 min Comments right leg more difficult [place] Activities Other Activities traction Equipment blue float, #2 wts Duration 10 Swim Strokes modified breaststroke Equipment Flotation Belt Other Equipment Used blue float Laps/Duration 8 min PT-OP-T Assessment and Plan Start: 07/15/21 16:54 Freq: Status: Active Protocol: Document 09/24/21 14:53 BRET (Rec: 09/24/21 15:07 BRET [id number]) Physical Therapy Assessment Rehab Potential Rehabilitation Potential Fair Evaluation Complexity Number of Personal Factors/Comorbidities 3 or More Number of Body Systems Impaired 3 Clinical Presentation at Evaluation Stable Impairments Impairments Activity Tolerance,Balance, Functional Activities, Functional Mobility,Gait,Pain, Posture,ROM,Soft Tissue Mobility,Strength,Transfers Goals walk Impairment pt uses 4ww all time Short Term Goal (STG) pt will be able to walk with 2 hiking poles within home distance STG Duration 6 weeks Transportation Services Representative Goal (LTG) pt will be able to walk with 2 hiking poles at home and community LTG Duration 12 weeks hip angle Impairment pt has a 28 degrees hip flexion angle in standing Short Term Goal (STG) pt will show improved lumbar mobility and tolerance for WB activities who will be able to stand with <25 degrees hip flexion. STG Duration 6 weeks Transportation Services Representative Goal (LTG) pt will show improved lumbar mobility and tolerance for WB activities who will be able to stand with <25 degrees hip flexion. LTG Duration 12 weeks Owestry Impairment pt scores 56 Short Term Goal (STG) pt will show improved overall mobility and strength by scoring <50 on Owestry STG Duration 6 weeks Transportation Services Representative Goal (LTG) pt will show improved overall mobility and strength by scoring <40 on Owestry LTG Duration 12 weeks Assessment Summary Assessment Pt improving with balance during stop/start directional changes. Wants to attempt swimming activity with floatation equipment to add to exercise routine. Physical Therapy Plan Frequency and Duration Frequency of Treatment 2x/Week Duration of Treatment 12 weeks Plan of Care Start Date 07/15/21 Plan of Care End Date 10/13/21 Therapeutic Interventions Therapeutic Interventions Aquatic Therapy,Balance Training,Gait Training,Home Exercise Program,Joint Mobilizations,Manual Therapy, Neuromuscular Re-education, Patient/Caregiver Education, Self-Care/Home Management,Soft Tissue Mobilization,Taping, Therapeutic Activities, Therapeutic Exercises Modalities Cold Pack/Ice Massage,Electric Stimulation,Hot Packs, Infrared Therapy,Paraffin Bath ,Traction- Mechanical, Ultrasound
--- NOTE | 2021-10-01 15:43 | PT.OTN ---
Current Diagnoses Spondylosis without myelopathy or radiculopathy, lumbar region (10/01/21) Physical Therapy Treatment Note PT-OP-A Visit Information Start: 07/15/21 16:54 Freq: Status: Active Protocol: Document 10/01/21 15:26 LJ (Rec: 10/01/21 15:43 LJ [id number]) Out-Patient Physical Therapy Visit Information Visit Information Visit Type Aquatic Treatment Note Visit Start Time 12:30 Visit Stop Time 01:15 Total Visit Minutes 45 Visit Number 4 Number of TRUCK DRIVER SUPERVISOR Visits 3 PT-OP-B Current Condition Start: 07/15/21 16:54 Freq: Status: Active Protocol: Document 07/15/21 16:54 HH (Rec: 07/15/21 17:27 HH [id number]) Current Condition History of Current Condition Onset Date 2019 Current Complaints chronic back pain, weakness, difficulty in walking History of Current Condition Toribio is a 71 yo returning patient here for his debilitating chronic LBP. He had L4-L5 microdisectomy last year for his L4L5 ruptured disc. He then had significant loss of mobility and strength who now uses 4WW for all mobility. He bascially cannot stand straight and lay in prone position. He walks with a flexed posture to alleviate his pain. He saw his surgeon 2 months ago and did not recommend further back surgery. He had a course of PT with me but only limited progress (able to use hiking sticks to walk at one point). He has been going to the pool for water walking, mobility exercises and has been helpful for his strnegth and balance. He would like to do PT again to participate both land and aquative therapy. Personal Factors Other Personal Factors That May Effect overweight Therapy/Recovery previous heart attack CABG placement chronic back pain PT-OP-C Subjective Start: 07/15/21 16:54 Freq: Status: Active Protocol: Document 10/01/21 15:26 LJ (Rec: 10/01/21 15:43 LJ [id number]) OP-PT Subjective Patient Comments Patient Comments Pt sees improvement in strength and balance. Would like to continue to add swimming into AT sessions. PT-OP-D Balance Start: 07/15/21 16:54 Freq: Status: Active Protocol: Document 07/15/21 16:54 HH (Rec: 07/15/21 17:27 HH [id number]) Balance Tests Single Limb Standing Single Limb- Right unable Single Limb- Left unable PT-OP-G Mobility & Gait Start: 07/15/21 16:54 Freq: Status: Active Protocol: Document 07/15/21 16:54 (Rec: 07/15/21 17:27 [id number]) OP Mobility Evaluation Bed Mobility Supine to and from Sit log roll method OP Gait Assessment Gait Gait Assistance Required: Independent Assistive Devices Assistive Device 4 Wheeled Walker Gait Deviations General Gait Pattern Flexed Trunk Factors Limiting Gait Function Factors Limiting Gait Function Limited Range of Motion,Pain Comments Gait Comments pt walks wth a significant flexed posture with a hyperextended lumbar spine. He often has to stop to keep his walker close to his body. PT-OP-H Neuro Start: 07/15/21 16:54 Freq: Status: Active Protocol: Document 07/15/21 16:54 (Rec: 07/15/21 17:27 [id number]) Sensation Evaluation Gross Sensation Gross Sensation WNL Deep Tendon Reflex & Clonus Assessment Deep Tendon Reflex Bilateral Achilles Deep Tendon Reflex 2+ Normal Right Patellar Deep Tendon Reflex 2+ Normal Left Patellar Deep Tendon Reflex 0 Absent PT-OP-J Posture/Palpation/Skin Start: 07/15/21 16:54 Freq: Status: Active Protocol: Document 07/15/21 16:54 (Rec: 07/15/21 17:27 [id number]) Posture Evaluation Position Standing T-Spine Posture Increased Kyphosis L-Spine Posture Increased Lordosis,Flexed Hip Posture (L) Flexed,(R) Flexed Knee Posture (L) Excess Flexion,(R) Excess Flexion PT-OP-K Range of Motion Start: 07/15/21 16:54 Freq: Status: Active Protocol: Document 07/15/21 16:54 (Rec: 07/15/21 17:27 [id number]) Lumbar Spine Range of Motion Lumbar Spine Active Degrees Comments hip angle in standing (normal posture) = 28 degrees in flexion hip angle in standing ( extended posture) = 25 degrees in flexion, pain at low back. PT-OP-L Special Tests Start: 07/15/21 16:54 Freq: Status: Active Protocol: Document 07/15/21 16:54 (Rec: 07/15/21 17:27 [id number]) Special Tests Lumbar Spine Special Tests Slump Test Results -ve Straight Leg Raise Test Results -ve Comments no rad pain but extension pain with SLR on R. PT-OP-M Strength Start: 07/15/21 16:54 Freq: Status: Active Protocol: Document 07/15/21 16:54 HH (Rec: 07/15/21 17:27 [id number]) Hip Strength Hip Manual Muscle Testing Right Flexion (L2) 3+ Fair+ Extension (S1) 4- Good- Abduction 4- Good- Adduction 4- Good- Comments low back pain with SLR flexion Left Flexion (L2) 4- Good- Extension (S1) 4- Good- Abduction 4+ Good+ Adduction 4+ Good+ Knee Strength Knee Manual Muscle Testing Right Flexion (S2) 5 Normal Extension (L3) 5 Normal Left Flexion (S2) 5 Normal Extension (L3) 5 Normal Ankle/Foot Strength Ankle and Foot Manual Muscle Testing Right Dorsiflexion (L4) 5 Normal Plantarflexion (S1) 5 Normal Left Dorsiflexion (L4) 5 Normal Plantarflexion (S1) 5 Normal PT-OP-Q Treatments Start: 07/15/21 16:54 Freq: Status: Active Protocol: Document 07/15/21 16:54 (Rec: 07/15/21 17:27 [id number]) Therapeutic Exercises Supine Exercises knee to chest Supine Exercise Name unilateral Side bilateral Reps/Minutes 20s x 5 Comments for HEP, rpeorts of pulling sensation on lumbar PT-OP-S Aquatic Treatment Start: 07/15/21 16:54 Freq: Status: Active Protocol: Document 10/01/21 15:26 BRET (Rec: 10/01/21 15:43 LJ [id number]) Aquatics Treatment Pool Entry/Exit Pool Entry/Exit Method Stairs Assistance Independent Water Walking stop start jogging Water Level Chest Level Level of Assistance Verbal Cues Comments TRUCK DRIVER SUPERVISOR calling out stop start direction changes stop/start with direction change Water Level Chest Level Comments 3 min Lunge Walk Water Level Waist Level Comments difficulty with coordination [place] March Water Level Chest Level Marching Water Level Chest Level Sideways Water Level Chest Level Comments hor AB/AD arms Backwards Water Level Chest Level Level of Assistance Verbal Cues Comments cues for posture Forwards Water Level Chest Level Level of Assistance Verbal Cues Comments cues for posture Lower Extremity Exercises Noodle push down Details hh on wall Body Position Standing Water Level Chest Level Equipment noodle, ankle floats Reps/Duration 20 B Comments not enough buoyant resistance 4 way hip Details holding onto wall Body Position Standing Water Level Waist Level Reps/Duration 10 ea B Comments cues for posture Lower Extremity Stretches quads, HS, hip flexors Body Position Standing Reps/Duration 2 x 30 B Upper Extremity Exercises rows Body Position Standing Water Level Chest Level Equipment cords Reps/Duration 30 flex/ext Body Position Standing Water Level Chest Level Reps/Duration 15 HAB AD Body Position Standing Water Level Chest Level Reps/Duration 15 Spinal Exercises trunk rotation Body Position Standing Water Level Chest Level Reps/Duration 15 Comments emphasis core stabilization Swim Strokes flutter kick Equipment Flotation Belt Other Equipment Used blue float Laps/Duration 4 min modified breaststroke Equipment Flotation Belt Other Equipment Used blue float Laps/Duration 4 min PT-OP-T Assessment and Plan Start: 07/15/21 16:54 Freq: Status: Active Protocol: Document 10/01/21 15:26 BRET (Rec: 10/01/21 15:43 BRET [id number]) Physical Therapy Assessment Rehab Potential Rehabilitation Potential Fair Evaluation Complexity Number of Personal Factors/Comorbidities 3 or More Number of Body Systems Impaired 3 Clinical Presentation at Evaluation Stable Impairments Impairments Activity Tolerance,Balance, Functional Activities, Functional Mobility,Gait,Pain, Posture,ROM,Soft Tissue Mobility,Strength,Transfers Goals walk Impairment pt uses 4ww all time Short Term Goal (STG) pt will be able to walk with 2 hiking poles within home distance STG Duration 6 weeks Art History Professor Goal (LTG) pt will be able to walk with 2 hiking poles at home and community LTG Duration 12 weeks hip angle Impairment pt has a 28 degrees hip flexion angle in standing Short Term Goal (STG) pt will show improved lumbar mobility and tolerance for WB activities who will be able to stand with <25 degrees hip flexion. STG Duration 6 weeks Shelter Goal (LTG) pt will show improved lumbar mobility and tolerance for WB activities who will be able to stand with <25 degrees hip flexion. LTG Duration 12 weeks Owestry Impairment pt scores 56 Short Term Goal (STG) pt will show improved overall mobility and strength by scoring <50 on Owestry STG Duration 6 weeks Art History Professor Goal (LTG) pt will show improved overall mobility and strength by scoring <40 on Owestry LTG Duration 12 weeks Assessment Summary Assessment Pt is improving with upright posture during most walking activities. Single leg exercises he has a tendancy to crouch thereby reducing wt bearing on stance leg. During flutter kicking and bs swimming he reported feeling his back muscles wotking which he hasn't been able to feel since he can't remember when; possibly since getting GBS. Physical Therapy Plan Frequency and Duration Frequency of Treatment 2x/Week Duration of Treatment 12 weeks Plan of Care Start Date 07/15/21 Plan of Care End Date 10/13/21 Therapeutic Interventions Therapeutic Interventions Aquatic Therapy,Balance Training,Gait Training,Home Exercise Program,Joint Mobilizations,Manual Therapy, Neuromuscular Re-education, Patient/Caregiver Education, Self-Care/Home Management,Soft Tissue Mobilization,Taping, Therapeutic Activities, Therapeutic Exercises Modalities Cold Pack/Ice Massage,Electric Stimulation,Hot Packs, Infrared Therapy,Paraffin Bath ,Traction- Mechanical, Ultrasound Next Visit Focus/Plan Next Note Type Treatment Note Next Visit Plan Advance core strengthening exercises as tolerated. Try LE resistance equipment for hip exercises.
--- NOTE | 2021-10-08 11:45 | PT.OTN ---
Current Diagnoses Spondylosis without myelopathy or radiculopathy, lumbar region (10/08/21) Physical Therapy Treatment Note PT-OP-A Visit Information Start: 07/15/21 16:54 Freq: Status: Active Protocol: Document 10/08/21 11:45 SAK (Rec: 10/09/21 08:25 [facility] [id number]) Out-Patient Physical Therapy Visit Information Visit Information Visit Type Aquatic Treatment Note Visit Start Time 11:45 Visit Stop Time 12:30 Total Visit Minutes 45 Visit Number Number of CASINO INVESTIGATOR Visits 0 PT-OP-B Current Condition Start: 07/15/21 16:54 Freq: Status: Active Protocol: Document 07/15/21 16:54 HH (Rec: 07/15/21 17:27 HH [id number]) Current Condition History of Current Condition Onset Date 2019 Current Complaints chronic back pain, weakness, difficulty in walking History of Current Condition Toribio is a 71 yo returning patient here for his debilitating chronic LBP. He had L4-L5 microdisectomy last year for his L4L5 ruptured disc. He then had significant loss of mobility and strength who now uses 4WW for all mobility. He bascially cannot stand straight and lay in prone position. He walks with a flexed posture to alleviate his pain. He saw his surgeon 2 months ago and did not recommend further back surgery. He had a course of PT with me but only limited progress (able to use hiking sticks to walk at one point). He has been going to the pool for water walking, mobility exercises and has been helpful for his strnegth and balance. He would like to do PT again to participate both land and aquative therapy. Personal Factors Other Personal Factors That May Effect overweight Therapy/Recovery previous heart attack CABG placement chronic back pain PT-OP-C Subjective Start: 07/15/21 16:54 Freq: Status: Active Protocol: Document 10/08/21 11:45 SAK (Rec: 10/09/21 08:25 [facility] [id number]) OP-PT Subjective Patient Comments Patient Comments No new c/o, feels aquatic therapy most helpful for him. States he was very surprised not able to do flutter kick when tried last session. PT-OP-D Balance Start: 07/15/21 16:54 Freq: Status: Active Protocol: Document 07/15/21 16:54 HH (Rec: 07/15/21 17:27 [id number]) Balance Tests Single Limb Standing Single Limb- Right unable Single Limb- Left unable PT-OP-G Mobility & Gait Start: 07/15/21 16:54 Freq: Status: Active Protocol: Document 07/15/21 16:54 HH (Rec: 07/15/21 17:27 [id number]) OP Mobility Evaluation Bed Mobility Supine to and from Sit log roll method OP Gait Assessment Gait Gait Assistance Required: Independent Assistive Devices Assistive Device 4 Wheeled Walker Gait Deviations General Gait Pattern Flexed Trunk Factors Limiting Gait Function Factors Limiting Gait Function Limited Range of Motion,Pain Comments Gait Comments pt walks wth a significant flexed posture with a hyperextended lumbar spine. He often has to stop to keep his walker close to his body. PT-OP-H Neuro Start: 07/15/21 16:54 Freq: Status: Active Protocol: Document 07/15/21 16:54 HH (Rec: 07/15/21 17:27 [id number]) Sensation Evaluation Gross Sensation Gross Sensation WNL Deep Tendon Reflex & Clonus Assessment Deep Tendon Reflex Bilateral Achilles Deep Tendon Reflex 2+ Normal Right Patellar Deep Tendon Reflex 2+ Normal Left Patellar Deep Tendon Reflex 0 Absent PT-OP-J Posture/Palpation/Skin Start: 07/15/21 16:54 Freq: Status: Active Protocol: Document 07/15/21 16:54 HH (Rec: 07/15/21 17:27 [id number]) Posture Evaluation Position Standing T-Spine Posture Increased Kyphosis L-Spine Posture Increased Lordosis,Flexed Hip Posture (L) Flexed,(R) Flexed Knee Posture (L) Excess Flexion,(R) Excess Flexion PT-OP-K Range of Motion Start: 07/15/21 16:54 Freq: Status: Active Protocol: Document 07/15/21 16:54 HH (Rec: 07/15/21 17:27 [id number]) Lumbar Spine Range of Motion Lumbar Spine Active Degrees Comments hip angle in standing (normal posture) = 28 degrees in flexion hip angle in standing ( extended posture) = 25 degrees in flexion, pain at low back. PT-OP-L Special Tests Start: 07/15/21 16:54 Freq: Status: Active Protocol: Document 07/15/21 16:54 HH (Rec: 07/15/21 17:27 [id number]) Special Tests Lumbar Spine Special Tests Slump Test Results -ve Straight Leg Raise Test Results -ve Comments no rad pain but extension pain with SLR on R. PT-OP-M Strength Start: 07/15/21 16:54 Freq: Status: Active Protocol: Document 07/15/21 16:54 HH (Rec: 07/15/21 17:27 [id number]) Hip Strength Hip Manual Muscle Testing Right Flexion (L2) 3+ Fair+ Extension (S1) 4- Good- Abduction 4- Good- Adduction 4- Good- Comments low back pain with SLR flexion Left Flexion (L2) 4- Good- Extension (S1) 4- Good- Abduction 4+ Good+ Adduction 4+ Good+ Knee Strength Knee Manual Muscle Testing Right Flexion (S2) 5 Normal Extension (L3) 5 Normal Left Flexion (S2) 5 Normal Extension (L3) 5 Normal Ankle/Foot Strength Ankle and Foot Manual Muscle Testing Right Dorsiflexion (L4) 5 Normal Plantarflexion (S1) 5 Normal Left Dorsiflexion (L4) 5 Normal Plantarflexion (S1) 5 Normal PT-OP-Q Treatments Start: 07/15/21 16:54 Freq: Status: Active Protocol: Document 07/15/21 16:54 (Rec: 07/15/21 17:27 [id number]) Therapeutic Exercises Supine Exercises knee to chest Supine Exercise Name unilateral Side bilateral Reps/Minutes 20s x 5 Comments for HEP, rpeorts of pulling sensation on lumbar PT-OP-S Aquatic Treatment Start: 07/15/21 16:54 Freq: Status: Active Protocol: Document 10/08/21 11:45 SAK (Rec: 10/09/21 08:25 [facility] [id number]) Aquatics Treatment Pool Entry/Exit Pool Entry/Exit Method Stairs Assistance Independent Water Walking stop/start with direction change Water Level Chest Level Comments 3 min Lunge Walk Water Level Waist Level Walking Equipment Ankle Floats Level of Assistance Standby Assistance,Verbal Cues Comments difficulty with coordination [place] Water Level Chest Level Walking Equipment Ankle Floats Level of Assistance Standby Assistance,Verbal Cues Marching Water Level Chest Level Walking Equipment Ankle Floats Level of Assistance Standby Assistance,Verbal Cues Sideways Walking Equipment Ankle Floats Level of Assistance Standby Assistance,Verbal Cues Backwards Water Level Chest Level Walking Equipment Ankle Floats Level of Assistance Standby Assistance,Verbal Cues Forwards Water Level Chest Level Walking Equipment Ankle Floats Level of Assistance Standby Assistance,Verbal Cues Lower Extremity Exercises 4 way hip Details holding onto wall Body Position Standing Water Level Waist Level Reps/Duration 10 ea B Comments cues for posture Balance SLS Water Level Chest Level Reps/Duration 30 sec left, 15 sec R Comments cues to stand tall step up on boxes Details forward and side Water Level Chest Level Equipment ankle floats Reps/Duration 5 min Comments right leg more difficult, LOB x 4; min-mod A Swim Strokes flutter kick Equipment Flotation Belt Other Equipment Used blue float, fins Laps/Duration 4 min modified breaststroke Equipment Flotation Belt Other Equipment Used blue float, fins Laps/Duration 4 min PT-OP-T Assessment and Plan Start: 07/15/21 16:54 Freq: Status: Active Protocol: Document 10/08/21 11:45 [facility] (Rec: 10/09/21 08:25 [facility] [id number]) Physical Therapy Assessment Rehab Potential Rehabilitation Potential Fair Evaluation Complexity Number of Personal Factors/Comorbidities 3 or More Number of Body Systems Impaired 3 Clinical Presentation at Evaluation Stable Impairments Impairments Activity Tolerance,Balance, Functional Activities, Functional Mobility,Gait,Pain, Posture,ROM,Soft Tissue Mobility,Strength,Transfers Goals walk Impairment pt uses 4ww all time Short Term Goal (STG) pt will be able to walk with 2 hiking poles within home distance STG Duration 6 weeks Mcc Goal (LTG) pt will be able to walk with 2 hiking poles at home and community LTG Duration 12 weeks hip angle Impairment pt has a 28 degrees hip flexion angle in standing Short Term Goal (STG) pt will show improved lumbar mobility and tolerance for WB activities who will be able to stand with <25 degrees hip flexion. STG Duration 6 weeks [employer] Ins[employer] Installer Goal (LTG) pt will show improved lumbar mobility and tolerance for WB activities who will be able to stand with <25 degrees hip flexion. LTG Duration 12 weeks Owestry Impairment pt scores 56 Short Term Goal (STG) pt will show improved overall mobility and strength by scoring <50 on Owestry STG Duration 6 weeks Mcc Goal (LTG) pt will show improved overall mobility and strength by scoring <40 on Owestry LTG Duration 12 weeks Physical Therapy Plan Frequency and Duration Frequency of Treatment 2x/Week Duration of Treatment 12 weeks Plan of Care Start Date 07/15/21 Plan of Care End Date 10/13/21 Therapeutic Interventions Therapeutic Interventions Aquatic Therapy,Balance Training,Gait Training,Home Exercise Program,Joint Mobilizations,Manual Therapy, Neuromuscular Re-education, Patient/Caregiver Education, Self-Care/Home Management,Soft Tissue Mobilization,Taping, Therapeutic Activities, Therapeutic Exercises Modalities Cold Pack/Ice Massage,Electric Stimulation,Hot Packs, Infrared Therapy,Paraffin Bath ,Traction- Mechanical, Ultrasound Next Visit Focus/Plan Next Note Type Treatment Note Next Visit Plan Advance core strengthening exercises as tolerated. Try LE resistance equipment for hip exercises. Progress swimming as part of ther ex for strengthening, core stab.
--- NOTE | 2021-10-15 14:50 | PT.OTN ---
Current Diagnoses Spondylosis without myelopathy or radiculopathy, lumbar region (10/08/21) Physical Therapy Treatment Note PT-OP-A Visit Information Start: 07/15/21 16:54 Freq: Status: Active Protocol: Document 10/15/21 14:36 BRET (Rec: 10/15/21 14:50 LJ [id number]) Out-Patient Physical Therapy Visit Information Visit Information Visit Type Aquatic Treatment Note Visit Start Time 12:30 Visit Stop Time 01:15 Total Visit Minutes 45 Visit Number PT-OP-B Current Condition Start: 07/15/21 16:54 Freq: Status: Active Protocol: Document 07/15/21 16:54 HH (Rec: 07/15/21 17:27 HH [id number]) Current Condition History of Current Condition Onset Date 2019 Current Complaints chronic back pain, weakness, difficulty in walking History of Current Condition Toribio is a 71 yo returning patient here for his debilitating chronic LBP. He had L4-L5 microdisectomy last year for his L4L5 ruptured disc. He then had significant loss of mobility and strength who now uses 4WW for all mobility. He bascially cannot stand straight and lay in prone position. He walks with a flexed posture to alleviate his pain. He saw his surgeon 2 months ago and did not recommend further back surgery. He had a course of PT with me but only limited progress (able to use hiking sticks to walk at one point). He has been going to the pool for water walking, mobility exercises and has been helpful for his strnegth and balance. He would like to do PT again to participate both land and aquative therapy. Personal Factors Other Personal Factors That May Effect overweight Therapy/Recovery previous heart attack CABG placement chronic back pain PT-OP-C Subjective Start: 07/15/21 16:54 Freq: Status: Active Protocol: Document 10/15/21 14:36 BRET (Rec: 10/15/21 14:50 LJ [id number]) OP-PT Subjective Patient Comments Patient Comments States he is feeling stronger and balance is improving. He feels that SL squats are most beneficial. PT-OP-D Balance Start: 07/15/21 16:54 Freq: Status: Active Protocol: Document 07/15/21 16:54 HH (Rec: 07/15/21 17:27 HH [id number]) Balance Tests Single Limb Standing Single Limb- Right unable Single Limb- Left unable PT-OP-G Mobility & Gait Start: 07/15/21 16:54 Freq: Status: Active Protocol: Document 07/15/21 16:54 (Rec: 07/15/21 17:27 [id number]) OP Mobility Evaluation Bed Mobility Supine to and from Sit log roll method OP Gait Assessment Gait Gait Assistance Required: Independent Assistive Devices Assistive Device 4 Wheeled Walker Gait Deviations General Gait Pattern Flexed Trunk Factors Limiting Gait Function Factors Limiting Gait Function Limited Range of Motion,Pain Comments Gait Comments pt walks wth a significant flexed posture with a hyperextended lumbar spine. He often has to stop to keep his walker close to his body. PT-OP-H Neuro Start: 07/15/21 16:54 Freq: Status: Active Protocol: Document 07/15/21 16:54 (Rec: 07/15/21 17:27 [id number]) Sensation Evaluation Gross Sensation Gross Sensation WNL Deep Tendon Reflex & Clonus Assessment Deep Tendon Reflex Bilateral Achilles Deep Tendon Reflex 2+ Normal Right Patellar Deep Tendon Reflex 2+ Normal Left Patellar Deep Tendon Reflex 0 Absent PT-OP-J Posture/Palpation/Skin Start: 07/15/21 16:54 Freq: Status: Active Protocol: Document 07/15/21 16:54 (Rec: 07/15/21 17:27 [id number]) Posture Evaluation Position Standing T-Spine Posture Increased Kyphosis L-Spine Posture Increased Lordosis,Flexed Hip Posture (L) Flexed,(R) Flexed Knee Posture (L) Excess Flexion,(R) Excess Flexion PT-OP-K Range of Motion Start: 07/15/21 16:54 Freq: Status: Active Protocol: Document 07/15/21 16:54 HH (Rec: 07/15/21 17:27 [id number]) Lumbar Spine Range of Motion Lumbar Spine Active Degrees Comments hip angle in standing (normal posture) = 28 degrees in flexion hip angle in standing ( extended posture) = 25 degrees in flexion, pain at low back. PT-OP-L Special Tests Start: 07/15/21 16:54 Freq: Status: Active Protocol: Document 07/15/21 16:54 (Rec: 07/15/21 17:27 [id number]) Special Tests Lumbar Spine Special Tests Slump Test Results -ve Straight Leg Raise Test Results -ve Comments no rad pain but extension pain with SLR on R. PT-OP-M Strength Start: 07/15/21 16:54 Freq: Status: Active Protocol: Document 07/15/21 16:54 HH (Rec: 07/15/21 17:27 HH [id number]) Hip Strength Hip Manual Muscle Testing Right Flexion (L2) 3+ Fair+ Extension (S1) 4- Good- Abduction 4- Good- Adduction 4- Good- Comments low back pain with SLR flexion Left Flexion (L2) 4- Good- Extension (S1) 4- Good- Abduction 4+ Good+ Adduction 4+ Good+ Knee Strength Knee Manual Muscle Testing Right Flexion (S2) 5 Normal Extension (L3) 5 Normal Left Flexion (S2) 5 Normal Extension (L3) 5 Normal Ankle/Foot Strength Ankle and Foot Manual Muscle Testing Right Dorsiflexion (L4) 5 Normal Plantarflexion (S1) 5 Normal Left Dorsiflexion (L4) 5 Normal Plantarflexion (S1) 5 Normal PT-OP-Q Treatments Start: 07/15/21 16:54 Freq: Status: Active Protocol: Document 07/15/21 16:54 (Rec: 07/15/21 17:27 [id number]) Therapeutic Exercises Supine Exercises knee to chest Supine Exercise Name unilateral Side bilateral Reps/Minutes 20s x 5 Comments for HEP, rpeorts of pulling sensation on lumbar PT-OP-S Aquatic Treatment Start: 07/15/21 16:54 Freq: Status: Active Protocol: Document 10/15/21 14:36 BRET (Rec: 10/15/21 14:50 LJ [id number]) Aquatics Treatment Pool Entry/Exit Pool Entry/Exit Method Stairs Assistance Independent Water Walking stop start jogging Water Level Chest Level Walking Equipment Resistance Fins Level of Assistance Verbal Cues Comments [employer] calling out stop start direction changes stop/start with direction change Water Level Chest Level Walking Equipment Resistance Fins Comments 3 min October Water Level Chest Level Walking Equipment Resistance Fins Level of Assistance Standby Assistance Sideways Walking Equipment Resistance Fins Level of Assistance Standby Assistance Backwards Water Level Chest Level Walking Equipment Resistance Fins Level of Assistance Standby Assistance Forwards Water Level Chest Level Walking Equipment UE paddles Lower Extremity Exercises squats Body Position Standing Water Level Waist Level Reps/Duration 15 B Comments single leg 4 way hip Details holding onto wall Body Position Standing Water Level Waist Level Equipment Resistance Fins Reps/Duration 10 ea B Comments cues for posture Lower Extremity Stretches quads, HS, hip flexors Body Position Standing Reps/Duration 2 x 30 B Upper Extremity Exercises chest press Body Position Standing Water Level Waist Level Equipment cords Reps/Duration 15 Comments foot braced on wall rows Body Position Standing Water Level Chest Level Equipment cords Reps/Duration 30 Spinal Exercises trunk rotation Body Position Standing Water Level Chest Level Equipment cords Reps/Duration 15 B Comments emphasis core stabilization Balance SLS Water Level Chest Level Reps/Duration 30 sec left, 15 sec R Comments cues to stand tall Swim Strokes flutter kick Other Equipment Used blue float, fins Laps/Duration 13 modified breaststroke Other Equipment Used blue float, fins Laps/Duration 3 min PT-OP-T Assessment and Plan Start: 07/15/21 16:54 Freq: Status: Active Protocol: Document 10/15/21 14:36 BRET (Rec: 10/15/21 14:50 BRET [id number]) Physical Therapy Assessment Rehab Potential Rehabilitation Potential Fair Evaluation Complexity Number of Personal Factors/Comorbidities 3 or More Number of Body Systems Impaired 3 Clinical Presentation at Evaluation Stable Impairments Impairments Activity Tolerance,Balance, Functional Activities, Functional Mobility,Gait,Pain, Posture,ROM,Soft Tissue Mobility,Strength,Transfers Goals walk Impairment pt uses 4ww all time Short Term Goal (STG) pt will be able to walk with 2 hiking poles within home distance STG Duration 6 weeks Retirement Goal (LTG) pt will be able to walk with 2 hiking poles at home and community LTG Duration 12 weeks hip angle Impairment pt has a 28 degrees hip flexion angle in standing Short Term Goal (STG) pt will show improved lumbar mobility and tolerance for WB activities who will be able to stand with <25 degrees hip flexion. STG Duration 6 weeks Retirement Goal (LTG) pt will show improved lumbar mobility and tolerance for WB activities who will be able to stand with <25 degrees hip flexion. LTG Duration 12 weeks Owestry Impairment pt scores 56 Short Term Goal (STG) pt will show improved overall mobility and strength by scoring <50 on Owestry STG Duration 6 weeks Retirement Goal (LTG) pt will show improved overall mobility and strength by scoring <40 on Owestry LTG Duration 12 weeks Assessment Summary Assessment Pt improving with walking activities. Occasionally he cannot stop himself when he jogs too fast. He will stop by running to a wall. Better positioning when swimming wearing only blue float. Attempted flutter kick with kickboard but it didn't provide enough floatation. Trialed wonderboard which worked. His flutter kick is progressing. Physical Therapy Plan Frequency and Duration Frequency of Treatment 2x/Week Duration of Treatment 12 weeks Plan of Care Start Date 07/15/21 Plan of Care End Date 10/13/21 Therapeutic Interventions Therapeutic Interventions Aquatic Therapy,Balance Training,Gait Training,Home Exercise Program,Joint Mobilizations,Manual Therapy, Neuromuscular Re-education, Patient/Caregiver Education, Self-Care/Home Management,Soft Tissue Mobilization,Taping, Therapeutic Activities, Therapeutic Exercises Modalities Cold Pack/Ice Massage,Electric Stimulation,Hot Packs, Infrared Therapy,Paraffin Bath ,Traction- Mechanical, Ultrasound Next Visit Focus/Plan Next Note Type Treatment Note Next Visit Plan Progress LE strengthening with resistance fins in deep water . Progress swimming as part of ther ex for strengthening, core stab., and cardio.
--- NOTE | 2021-10-22 15:14 | PT.OTN ---
Current Diagnoses Spondylosis without myelopathy or radiculopathy, lumbar region (10/22/21) Physical Therapy Treatment Note PT-OP-A Visit Information Start: 07/15/21 16:54 Freq: Status: Active Protocol: Document 10/22/21 15:00 LJ (Rec: 10/22/21 15:14 LJ [id number]) Out-Patient Physical Therapy Visit Information Visit Information Visit Type Aquatic Treatment Note Visit Start Time 12:30 Visit Stop Time 01:15 Total Visit Minutes 45 Visit Number 7 PT-OP-B Current Condition Start: 07/15/21 16:54 Freq: Status: Active Protocol: Document 07/15/21 16:54 HH (Rec: 07/15/21 17:27 HH [id number]) Current Condition History of Current Condition Onset Date 2019 Current Complaints chronic back pain, weakness, difficulty in walking History of Current Condition Toribio is a 71 yo returning patient here for his debilitating chronic LBP. He had L4-L5 microdisectomy last year for his L4L5 ruptured disc. He then had significant loss of mobility and strength who now uses 4WW for all mobility. He bascially cannot stand straight and lay in prone position. He walks with a flexed posture to alleviate his pain. He saw his surgeon 2 months ago and did not recommend further back surgery. He had a course of PT with me but only limited progress (able to use hiking sticks to walk at one point). He has been going to the pool for water walking, mobility exercises and has been helpful for his strnegth and balance. He would like to do PT again to participate both land and aquative therapy. Personal Factors Other Personal Factors That May Effect overweight Therapy/Recovery previous heart attack CABG placement chronic back pain PT-OP-C Subjective Start: 07/15/21 16:54 Freq: Status: Active Protocol: Document 10/22/21 15:00 LJ (Rec: 10/22/21 15:14 LJ [id number]) OP-PT Subjective Patient Comments Patient Comments Pt states he feels a bit stronger but still experiencing feelingings of weakness in his LEs while walking on land. States he is having difficulty standing without flexing forward at the hips. He feels that it is because he can't feel the muscles in his glutes and back working. PT-OP-D Balance Start: 07/15/21 16:54 Freq: Status: Active Protocol: Document 07/15/21 16:54 (Rec: 07/15/21 17:27 [id number]) Balance Tests Single Limb Standing Single Limb- Right unable Single Limb- Left unable PT-OP-G Mobility & Gait Start: 07/15/21 16:54 Freq: Status: Active Protocol: Document 07/15/21 16:54 HH (Rec: 07/15/21 17:27 [id number]) OP Mobility Evaluation Bed Mobility Supine to and from Sit log roll method OP Gait Assessment Gait Gait Assistance Required: Independent Assistive Devices Assistive Device 4 Wheeled Walker Gait Deviations General Gait Pattern Flexed Trunk Factors Limiting Gait Function Factors Limiting Gait Function Limited Range of Motion,Pain Comments Gait Comments pt walks wth a significant flexed posture with a hyperextended lumbar spine. He often has to stop to keep his walker close to his body. PT-OP-H Neuro Start: 07/15/21 16:54 Freq: Status: Active Protocol: Document 07/15/21 16:54 (Rec: 07/15/21 17:27 [id number]) Sensation Evaluation Gross Sensation Gross Sensation WNL Deep Tendon Reflex & Clonus Assessment Deep Tendon Reflex Bilateral Achilles Deep Tendon Reflex 2+ Normal Right Patellar Deep Tendon Reflex 2+ Normal Left Patellar Deep Tendon Reflex 0 Absent PT-OP-J Posture/Palpation/Skin Start: 07/15/21 16:54 Freq: Status: Active Protocol: Document 07/15/21 16:54 (Rec: 07/15/21 17:27 [id number]) Posture Evaluation Position Standing T-Spine Posture Increased Kyphosis L-Spine Posture Increased Lordosis,Flexed Hip Posture (L) Flexed,(R) Flexed Knee Posture (L) Excess Flexion,(R) Excess Flexion PT-OP-K Range of Motion Start: 07/15/21 16:54 Freq: Status: Active Protocol: Document 07/15/21 16:54 (Rec: 07/15/21 17:27 [id number]) Lumbar Spine Range of Motion Lumbar Spine Active Degrees Comments hip angle in standing (normal posture) = 28 degrees in flexion hip angle in standing ( extended posture) = 25 degrees in flexion, pain at low back. PT-OP-L Special Tests Start: 07/15/21 16:54 Freq: Status: Active Protocol: Document 07/15/21 16:54 HH (Rec: 07/15/21 17:27 [id number]) Special Tests Lumbar Spine Special Tests Slump Test Results -ve Straight Leg Raise Test Results -ve Comments no rad pain but extension pain with SLR on R. PT-OP-M Strength Start: 07/15/21 16:54 Freq: Status: Active Protocol: Document 07/15/21 16:54 HH (Rec: 07/15/21 17:27 [id number]) Hip Strength Hip Manual Muscle Testing Right Flexion (L2) 3+ Fair+ Extension (S1) 4- Good- Abduction 4- Good- Adduction 4- Good- Comments low back pain with SLR flexion Left Flexion (L2) 4- Good- Extension (S1) 4- Good- Abduction 4+ Good+ Adduction 4+ Good+ Knee Strength Knee Manual Muscle Testing Right Flexion (S2) 5 Normal Extension (L3) 5 Normal Left Flexion (S2) 5 Normal Extension (L3) 5 Normal Ankle/Foot Strength Ankle and Foot Manual Muscle Testing Right Dorsiflexion (L4) 5 Normal Plantarflexion (S1) 5 Normal Left Dorsiflexion (L4) 5 Normal Plantarflexion (S1) 5 Normal PT-OP-Q Treatments Start: 07/15/21 16:54 Freq: Status: Active Protocol: Document 07/15/21 16:54 (Rec: 07/15/21 17:27 [id number]) Therapeutic Exercises Supine Exercises knee to chest Supine Exercise Name unilateral Side bilateral Reps/Minutes 20s x 5 Comments for HEP, rpeorts of pulling sensation on lumbar PT-OP-S Aquatic Treatment Start: 07/15/21 16:54 Freq: Status: Active Protocol: Document 10/22/21 15:00 BRET (Rec: 10/22/21 15:14 LJ [id number]) Aquatics Treatment Pool Entry/Exit Pool Entry/Exit Method Stairs Assistance Independent Water Walking stop/start with direction change Water Level Chest Level Walking Equipment Ankle Floats Comments 2 min Lunge Walk Water Level Waist Level Walking Equipment Ankle Floats Level of Assistance Standby Assistance [place] March Water Level Chest Level Walking Equipment Ankle Floats Level of Assistance Standby Assistance March Water Level Chest Level Walking Equipment Ankle Floats Level of Assistance Standby Assistance,Verbal Cues Comments reaching opp side Sideways Water Level Chest Level Walking Equipment Resistance Fins Comments lg step over Backwards Water Level Chest Level Walking Equipment Ankle Floats Level of Assistance Standby Assistance Comments circumduction Forwards Water Level Chest Level Comments circumduction Lower Extremity Exercises squats Body Position Standing Water Level Waist Level Reps/Duration 15 B Comments single leg 4 way hip Details holding onto wall Body Position Standing Water Level Waist Level Equipment Ankle Floats Reps/Duration 10 ea B Comments cues for posture Lower Extremity Stretches quads, HS, hip flexors Body Position Standing Reps/Duration 2 x 30 B Upper Extremity Exercises chest press Body Position Standing Water Level Waist Level Equipment cords Reps/Duration 15 Comments foot braced on wall rows Body Position Standing Water Level Chest Level Equipment cords Reps/Duration 30 HAB AD Body Position Standing Water Level Chest Level Reps/Duration 15 Balance SLS Water Level Chest Level Reps/Duration 30 sec left, 15 sec R Comments cues to stand tall Royal Activities Royal Activities Bicycle,Bicycle Backwards, [place] Other Activities deep kicks at wall Equipment belt, #3 wts, lg BBs Swim Strokes kick on back Equipment Fins,Flotation Belt,Noodle Laps/Duration 50 m flutter kick Other Equipment Used belt, wonder board, fins Laps/Duration 4 min Comments prone PT-OP-T Assessment and Plan Start: 07/15/21 16:54 Freq: Status: Active Protocol: Document 10/22/21 15:00 BRET (Rec: 10/22/21 15:14 BRET [id number]) Physical Therapy Assessment Rehab Potential Rehabilitation Potential Fair Evaluation Complexity Number of Personal Factors/Comorbidities 3 or More Number of Body Systems Impaired 3 Clinical Presentation at Evaluation Stable Impairments Impairments Activity Tolerance,Balance, Functional Activities, Functional Mobility,Gait,Pain, Posture,ROM,Soft Tissue Mobility,Strength,Transfers Goals walk Impairment pt uses 4ww all time Short Term Goal (STG) pt will be able to walk with 2 hiking poles within home distance STG Duration 6 weeks Cash Posting Representative Goal (LTG) pt will be able to walk with 2 hiking poles at home and community LTG Duration 12 weeks hip angle Impairment pt has a 28 degrees hip flexion angle in standing Short Term Goal (STG) pt will show improved lumbar mobility and tolerance for WB activities who will be able to stand with <25 degrees hip flexion. STG Duration 6 weeks Cash Posting Representative Goal (LTG) pt will show improved lumbar mobility and tolerance for WB activities who will be able to stand with <25 degrees hip flexion. LTG Duration 12 weeks Owestry Impairment pt scores 56 Short Term Goal (STG) pt will show improved overall mobility and strength by scoring <50 on Owestry STG Duration 6 weeks Cash Posting Representative Goal (LTG) pt will show improved overall mobility and strength by scoring <40 on Owestry LTG Duration 12 weeks Assessment Summary Assessment Pt improving with walking activities. Better positioning when swimming prone wearing only blue float and using wonder board for a kick board. Modified backstroke with lg noodle under arms and belt worked very well for hip and back extension. Pt was able to extend hips mor and achieve a productive kick. Stated it felt really good on his back . Physical Therapy Plan Frequency and Duration Frequency of Treatment 2x/Week Duration of Treatment 12 weeks Plan of Care Start Date 07/15/21 Plan of Care End Date 10/13/21 Therapeutic Interventions Therapeutic Interventions Aquatic Therapy,Balance Training,Gait Training,Home Exercise Program,Joint Mobilizations,Manual Therapy, Neuromuscular Re-education, Patient/Caregiver Education, Self-Care/Home Management,Soft Tissue Mobilization,Taping, Therapeutic Activities, Therapeutic Exercises Modalities Cold Pack/Ice Massage,Electric Stimulation,Hot Packs, Infrared Therapy,Paraffin Bath ,Traction- Mechanical, Ultrasound Next Visit Focus/Plan Next Note Type Treatment Note Next Visit Plan Progress LE strengthening with resistance fins in deep water . Progress swimming as part of ther ex for strengthening, core stab., and cardio.
--- NOTE | 2021-10-29 15:22 | PT.OTN ---
Current Diagnoses Spondylosis without myelopathy or radiculopathy, lumbar region (10/29/21) Physical Therapy Treatment Note PT-OP-A Visit Information Start: 07/15/21 16:54 Freq: Status: Active Protocol: Document 10/29/21 15:10 BRET (Rec: 10/29/21 15: [id number]) Out-Patient Physical Therapy Visit Information Visit Information Visit Type Aquatic Treatment Note Visit Start Time 12:30 Visit Stop Time 01:15 Total Visit Minutes 45 Visit Number 8 PT-OP-B Current Condition Start: 07/15/21 16:54 Freq: Status: Active Protocol: Document 07/15/21 16:54 HH (Rec: 07/15/21 17:27 HH [id number]) Current Condition History of Current Condition Onset Date 2019 Current Complaints chronic back pain, weakness, difficulty in walking History of Current Condition Toribio is a 71 yo returning patient here for his debilitating chronic LBP. He had L4-L5 microdisectomy last year for his L4L5 ruptured disc. He then had significant loss of mobility and strength who now uses 4WW for all mobility. He bascially cannot stand straight and lay in prone position. He walks with a flexed posture to alleviate his pain. He saw his surgeon 2 months ago and did not recommend further back surgery. He had a course of PT with me but only limited progress (able to use hiking sticks to walk at one point). He has been going to the pool for water walking, mobility exercises and has been helpful for his strnegth and balance. He would like to do PT again to participate both land and aquative therapy. Personal Factors Other Personal Factors That May Effect overweight Therapy/Recovery previous heart attack CABG placement chronic back pain PT-OP-C Subjective Start: 07/15/21 16:54 Freq: Status: Active Protocol: Document 10/29/21 15:10 LJ (Rec: 10/29/21 15:22 LJ [id number]) OP-PT Subjective Patient Comments Patient Comments Pt states he feels his back is getting stronger as well as his legs and core. He feels AT is benefitting him and would like to continue PT-OP-D Balance Start: 07/15/21 16:54 Freq: Status: Active Protocol: Document 07/15/21 16:54 HH (Rec: 07/15/21 17:27 HH [id number]) Balance Tests Single Limb Standing Single Limb- Right unable Single Limb- Left unable PT-OP-G Mobility & Gait Start: 07/15/21 16:54 Freq: Status: Active Protocol: Document 07/15/21 16:54 HH (Rec: 07/15/21 17:27 [id number]) OP Mobility Evaluation Bed Mobility Supine to and from Sit log roll method OP Gait Assessment Gait Gait Assistance Required: Independent Assistive Devices Assistive Device 4 Wheeled Walker Gait Deviations General Gait Pattern Flexed Trunk Factors Limiting Gait Function Factors Limiting Gait Function Limited Range of Motion,Pain Comments Gait Comments pt walks wth a significant flexed posture with a hyperextended lumbar spine. He often has to stop to keep his walker close to his body. PT-OP-H Neuro Start: 07/15/21 16:54 Freq: Status: Active Protocol: Document 07/15/21 16:54 HH (Rec: 07/15/21 17:27 [id number]) Sensation Evaluation Gross Sensation Gross Sensation WNL Deep Tendon Reflex & Clonus Assessment Deep Tendon Reflex Bilateral Achilles Deep Tendon Reflex 2+ Normal Right Patellar Deep Tendon Reflex 2+ Normal Left Patellar Deep Tendon Reflex 0 Absent PT-OP-J Posture/Palpation/Skin Start: 07/15/21 16:54 Freq: Status: Active Protocol: Document 07/15/21 16:54 (Rec: 07/15/21 17:27 [id number]) Posture Evaluation Position Standing T-Spine Posture Increased Kyphosis L-Spine Posture Increased Lordosis,Flexed Hip Posture (L) Flexed,(R) Flexed Knee Posture (L) Excess Flexion,(R) Excess Flexion PT-OP-K Range of Motion Start: 07/15/21 16:54 Freq: Status: Active Protocol: Document 07/15/21 16:54 HH (Rec: 07/15/21 17:27 [id number]) Lumbar Spine Range of Motion Lumbar Spine Active Degrees Comments hip angle in standing (normal posture) = 28 degrees in flexion hip angle in standing ( extended posture) = 25 degrees in flexion, pain at low back. PT-OP-L Special Tests Start: 07/15/21 16:54 Freq: Status: Active Protocol: Document 07/15/21 16:54 HH (Rec: 07/15/21 17:27 [id number]) Special Tests Lumbar Spine Special Tests Slump Test Results -ve Straight Leg Raise Test Results -ve Comments no rad pain but extension pain with SLR on R. PT-OP-M Strength Start: 07/15/21 16:54 Freq: Status: Active Protocol: Document 07/15/21 16:54 HH (Rec: 07/15/21 17:27 [id number]) Hip Strength Hip Manual Muscle Testing Right Flexion (L2) 3+ Fair+ Extension (S1) 4- Good- Abduction 4- Good- Adduction 4- Good- Comments low back pain with SLR flexion Left Flexion (L2) 4- Good- Extension (S1) 4- Good- Abduction 4+ Good+ Adduction 4+ Good+ Knee Strength Knee Manual Muscle Testing Right Flexion (S2) 5 Normal Extension (L3) 5 Normal Left Flexion (S2) 5 Normal Extension (L3) 5 Normal Ankle/Foot Strength Ankle and Foot Manual Muscle Testing Right Dorsiflexion (L4) 5 Normal Plantarflexion (S1) 5 Normal Left Dorsiflexion (L4) 5 Normal Plantarflexion (S1) 5 Normal PT-OP-Q Treatments Start: 07/15/21 16:54 Freq: Status: Active Protocol: Document 07/15/21 16:54 (Rec: 07/15/21 17:27 [id number]) Therapeutic Exercises Supine Exercises knee to chest Supine Exercise Name unilateral Side bilateral Reps/Minutes 20s x 5 Comments for HEP, rpeorts of pulling sensation on lumbar PT-OP-S Aquatic Treatment Start: 07/15/21 16:54 Freq: Status: Active Protocol: Document 10/29/21 15:10 BRET (Rec: 10/29/21 15:22 [id number]) Aquatics Treatment Pool Entry/Exit Pool Entry/Exit Method Stairs Assistance Independent Water Walking stop/start with direction change Water Level Chest Level Walking Equipment Ankle Floats Comments 2 min Lunge Walk Water Level Waist Level Walking Equipment Ankle Floats Level of Assistance Standby Assistance [place] March Water Level Chest Level Walking Equipment Ankle Floats Level of Assistance Standby Assistance [place] Water Level Chest Level Walking Equipment Ankle Floats Level of Assistance Standby Assistance,Verbal Cues Comments reaching opp side Sideways Water Level Chest Level Walking Equipment Resistance Fins Comments lg step over Backwards Water Level Chest Level Walking Equipment Ankle Floats Level of Assistance Standby Assistance Comments circumduction Forwards Water Level Chest Level Walking Equipment Ankle Floats Comments circumduction Lower Extremity Exercises 4 way hip Details holding onto wall Body Position Standing Water Level Waist Level Equipment Ankle Floats Reps/Duration 10 x2 ea B Comments cues for posture Lower Extremity Stretches quads, HS, hip flexors Body Position Standing Reps/Duration 2 x 30 B Upper Extremity Exercises chest press Body Position Standing Water Level Waist Level Equipment cords Reps/Duration 15 Comments foot braced on wall rows Body Position Standing Water Level Chest Level Equipment cords Reps/Duration 30 flex/ext Body Position Standing Water Level Chest Level Equipment sm bells Reps/Duration 15 HAB AD Body Position Standing Water Level Chest Level Equipment sm bells Reps/Duration 15 Spinal Exercises paloff press Body Position Standing Water Level Waist Level Equipment cords Reps/Duration 12 B Comments for glute strengthening and core stability trunk rotation Body Position Standing Water Level Chest Level Equipment cords Reps/Duration 15 B Comments emphasis core stabilization Balance SL squat with toe touch on dots Details dots placed for flexion, abd, and extension Body Position Standing Water Level Waist Level Equipment dots, noodle Reps/Duration 10 ea B Comments pt with difficuulty balancing Swim Strokes kick on back Equipment Fins,Flotation Belt,Noodle Laps/Duration 25 M flutter kick Other Equipment Used belt, wonder board, fins Laps/Duration 25 M Comments prone PT-OP-T Assessment and Plan Start: 07/15/21 16:54 Freq: Status: Active Protocol: Document 10/29/21 15:10 BRET (Rec: 10/29/21 15:22 [id number]) Physical Therapy Assessment Rehab Potential Rehabilitation Potential Fair Evaluation Complexity Number of Personal Factors/Comorbidities 3 or More Number of Body Systems Impaired 3 Clinical Presentation at Evaluation Stable Impairments Impairments Activity Tolerance,Balance, Functional Activities, Functional Mobility,Gait,Pain, Posture,ROM,Soft Tissue Mobility,Strength,Transfers Goals walk Impairment pt uses 4ww all time Short Term Goal (STG) pt will be able to walk with 2 hiking poles within home distance STG Duration 6 weeks Nursing Home Goal (LTG) pt will be able to walk with 2 hiking poles at home and community LTG Duration 12 weeks hip angle Impairment pt has a 28 degrees hip flexion angle in standing Short Term Goal (STG) pt will show improved lumbar mobility and tolerance for WB activities who will be able to stand with <25 degrees hip flexion. STG Duration 6 weeks Caseworker Goal (LTG) pt will show improved lumbar mobility and tolerance for WB activities who will be able to stand with <25 degrees hip flexion. LTG Duration 12 weeks Owestry Impairment pt scores 56 Short Term Goal (STG) pt will show improved overall mobility and strength by scoring <50 on Owestry STG Duration 6 weeks Caseworker Goal (LTG) pt will show improved overall mobility and strength by scoring <40 on Owestry LTG Duration 12 weeks Assessment Summary Assessment Pt is progressing toward goals but still challenged with balance and righting activities. He would benefit from more AT visits to continue addressing balance and strengthening to reduce his fall risk. Physical Therapy Plan Frequency and Duration Frequency of Treatment 2x/Week Duration of Treatment 12 weeks Plan of Care Start Date 07/15/21 Plan of Care End Date 10/13/21 Therapeutic Interventions Therapeutic Interventions Aquatic Therapy,Balance Training,Gait Training,Home Exercise Program,Joint Mobilizations,Manual Therapy, Neuromuscular Re-education, Patient/Caregiver Education, Self-Care/Home Management,Soft Tissue Mobilization,Taping, Therapeutic Activities, Therapeutic Exercises Modalities Cold Pack/Ice Massage,Electric Stimulation,Hot Packs, Infrared Therapy,Paraffin Bath ,Traction- Mechanical, Ultrasound Next Visit Focus/Plan Next Note Type Treatment Note Next Visit Plan Progress LE strengthening with resistance fins in deep water . Progress swimming as part of ther ex for strengthening, core stab., and cardio.
--- NOTE | 2021-10-30 16:42 | PT.OTRE ---
Current Diagnoses Spondylosis without myelopathy or radiculopathy, lumbar region (10/29/21) Past Medical History (Last Updated 09/23/21 @ 15:59 by Benjamin Aguilera DO) Blood clotting disorder BPH (benign prostatic hyperplasia) CAD (coronary artery disease) History of pulmonary embolism History of total left knee replacement Hyperlipidemia Obesity Surgical History (Last Updated 04/23/20 @ 15:37 by Benjamin Aguilera DO) History of total left knee replacement Visit Care Team Role Provider Type Benjamin Aguilera DO Primary Care Provider Physician Specialty: Family Practice Address: [address] [place] [address], [address] Email: [email or web address] Lee MD Family Provider Physician Specialty: Internal Medicine Address: [address] [place] [address], [address] Email: [email or web address] Attending Provider Non-Staff Referring Provider Specialty: Medical Address: [address] [place] [address], [address], [address] Email: Physical Therapy Re-Evaluation PT-OP-A Visit Information Start: 07/15/21 16:54 Freq: Status: Active Protocol: Document 10/30/21 16:35 SAK (Rec: 10/30/21 16:42 SAK [id number]) Out-Patient Physical Therapy Visit Information Visit Information Visit Type Re-Evaluation PT-OP-B Current Condition Start: 07/15/21 16:54 Freq: Status: Active Protocol: Document 07/15/21 16:54 HH (Rec: 07/15/21 17:27 HH [id number]) Current Condition History of Current Condition Onset Date 2020 Current Complaints chronic back pain, weakness, difficulty in walking History of Current Condition Toribio is a 71 yo returning patient here for his debilitating chronic LBP. He had L4-L5 microdisectomy last year for his L4L5 ruptured disc. He then had significant loss of mobility and strength who now uses 4WW for all mobility. He bascially cannot stand straight and lay in prone position. He walks with a flexed posture to alleviate his pain. He saw his surgeon 2 months ago and did not recommend further back surgery. He had a course of PT with me but only limited progress (able to use hiking sticks to walk at one point). He has been going to the pool for water walking, mobility exercises and has been helpful for his strnegth and balance. He would like to do PT again to participate both land and aquative therapy. Personal Factors Other Personal Factors That May Effect overweight Therapy/Recovery previous heart attack CABG placement chronic back pain PT-OP-C Subjective Start: 07/15/21 16:54 Freq: Status: Active Protocol: Document 10/29/21 15:10 LJ (Rec: 10/29/21 15:22 LJ [id number]) OP-PT Subjective Patient Comments Patient Comments Pt states he feels his back is getting stronger as well as his legs and core. He feels AT is benefitting him and would like to continue PT-OP-D Balance Start: 07/15/21 16:54 Freq: Status: Active Protocol: Document 07/15/21 16:54 HH (Rec: 07/15/21 17:27 HH [id number]) Balance Tests Single Limb Standing Single Limb- Right unable Single Limb- Left unable PT-OP-G Mobility & Gait Start: 07/15/21 16:54 Freq: Status: Active Protocol: Document 07/15/21 16:54 HH (Rec: 07/15/21 17:27 HH [id number]) OP Mobility Evaluation Bed Mobility Supine to and from Sit log roll method OP Gait Assessment Gait Gait Assistance Required: Independent Assistive Devices Assistive Device 4 Wheeled Walker Gait Deviations General Gait Pattern Flexed Trunk Factors Limiting Gait Function Factors Limiting Gait Function Limited Range of Motion,Pain Comments Gait Comments pt walks wth a significant flexed posture with a hyperextended lumbar spine. He often has to stop to keep his walker close to his body. PT-OP-H Neuro Start: 07/15/21 16:54 Freq: Status: Active Protocol: Document 07/15/21 16:54 HH (Rec: 07/15/21 17:27 HH [id number]) Sensation Evaluation Gross Sensation Gross Sensation WNL Deep Tendon Reflex & Clonus Assessment Deep Tendon Reflex Bilateral Achilles Deep Tendon Reflex 2+ Normal Right Patellar Deep Tendon Reflex 2+ Normal Left Patellar Deep Tendon Reflex 0 Absent PT-OP-J Posture/Palpation/Skin Start: 07/15/21 16:54 Freq: Status: Active Protocol: Document 07/15/21 16:54 (Rec: 07/15/21 17:27 [id number]) Posture Evaluation Position Standing T-Spine Posture Increased Kyphosis L-Spine Posture Increased Lordosis,Flexed Hip Posture (L) Flexed,(R) Flexed Knee Posture (L) Excess Flexion,(R) Excess Flexion PT-OP-K Range of Motion Start: 07/15/21 16:54 Freq: Status: Active Protocol: Document 07/15/21 16:54 HH (Rec: 07/15/21 17:27 [id number]) Lumbar Spine Range of Motion Lumbar Spine Active Degrees Comments hip angle in standing (normal posture) = 28 degrees in flexion hip angle in standing ( extended posture) = 25 degrees in flexion, pain at low back. PT-OP-L Special Tests Start: 07/15/21 16:54 Freq: Status: Active Protocol: Document 07/15/21 16:54 (Rec: 07/15/21 17:27 [id number]) Special Tests Lumbar Spine Special Tests Slump Test Results -ve Straight Leg Raise Test Results -ve Comments no rad pain but extension pain with SLR on R. PT-OP-M Strength Start: 07/15/21 16:54 Freq: Status: Active Protocol: Document 07/15/21 16:54 (Rec: 07/15/21 17:27 [id number]) Hip Strength Hip Manual Muscle Testing Right Flexion (L2) 3+ Fair+ Extension (S1) 4- Good- Abduction 4- Good- Adduction 4- Good- Comments low back pain with SLR flexion Left Flexion (L2) 4- Good- Extension (S1) 4- Good- Abduction 4+ Good+ Adduction 4+ Good+ Knee Strength Knee Manual Muscle Testing Right Flexion (S2) 5 Normal Extension (L3) 5 Normal Left Flexion (S2) 5 Normal Extension (L3) 5 Normal Ankle/Foot Strength Ankle and Foot Manual Muscle Testing Right Dorsiflexion (L4) 5 Normal Plantarflexion (S1) 5 Normal Left Dorsiflexion (L4) 5 Normal Plantarflexion (S1) 5 Normal PT-OP-Q Treatments Start: 07/15/21 16:54 Freq: Status: Active Protocol: Document 07/15/21 16:54 HH (Rec: 07/15/21 17:27 [id number]) Therapeutic Exercises Supine Exercises knee to chest Supine Exercise Name unilateral Side bilateral Reps/Minutes 20s x 5 Comments for HEP, rpeorts of pulling sensation on lumbar PT-OP-T Assessment and Plan Start: 07/15/21 16:54 Freq: Status: Active Protocol: Document 10/30/21 16:35 SAK (Rec: 10/30/21 16:42 SAK [id number]) Physical Therapy Assessment Rehab Potential Rehabilitation Potential Fair Evaluation Complexity Number of Personal Factors/Comorbidities 3 or More Number of Body Systems Impaired 3 Clinical Presentation at Evaluation Stable Impairments Impairments Activity Tolerance,Balance, Functional Activities, Functional Mobility,Gait,Pain, Posture,ROM,Soft Tissue Mobility,Strength,Transfers Goals walk Impairment pt uses 4ww all time Short Term Goal (STG) pt will be able to walk with 2 hiking poles within home distance 10/13/21: goal met Usp Goal (LTG) pt will be able to walk with 2 hiking poles at home and community 10/13/21: goal met at home, still mostly uses 4WW in community LTG Duration 12/29/21 hip angle Impairment pt has a 28 degrees hip flexion angle in standing Short Term Goal (STG) pt will show improved lumbar mobility and tolerance for WB activities who will be able to stand with <25 degrees hip flexion. 10/13/21: goal met Usp Goal (LTG) pt will show improved lumbar mobility and tolerance for WB activities who will be able to stand with <25 degrees hip flexion. LTG Duration 12/29/21 Owestry Impairment pt scores 56 on Oswestry disability index score Short Term Goal (STG) pt will show improved overall mobility and strength by scoring <50 on Owestry 12/29/21: goal achieved. STG Duration goal met Usp Goal (LTG) Patient will score less then 40 on Oswestry disability index score as measure of improved activity tolerance and abilty 12/29/21: goal progress LTG Duration 12/29/21 Assessment Summary Assessment Patient is making good progress toward goals as noted above,feels most benfit from aquatic therapy, and would like to continue. I feel has good potential for further gains with continued aquatic therapy to address his goals and be able to return to more active lifestyle. Physical Therapy Plan Frequency and Duration Frequency of Treatment 2x/Week Duration of Treatment 8 wks Plan of Care Start Date 10/13/21 Plan of Care End Date 12/29/21 Therapeutic Interventions Therapeutic Interventions Aquatic Therapy,Balance Training,Gait Training,Home Exercise Program,Joint Mobilizations,Manual Therapy, Neuromuscular Re-education, Patient/Caregiver Education, Self-Care/Home Management,Soft Tissue Mobilization,Taping, Therapeutic Activities, Therapeutic Exercises Modalities Cold Pack/Ice Massage,Electric Stimulation,Hot Packs, Infrared Therapy,Paraffin Bath ,Traction- Mechanical, Ultrasound Next Visit Focus/Plan Next Note Type Treatment Note Next Visit Plan Continue to progress aquatic therapy for strengthening, core stabilization, balance, and gait to address above goals.
--- NOTE | 2021-10-30 16:42 | PT.OPPOC ---
Physical, Occupational & Speech Therapy At [facility] Current Diagnoses Spondylosis without myelopathy or radiculopathy, lumbar region (10/29/21) Visit Care Team Role Provider Type Benjamin Aguilera DO Primary Care Provider Physician Specialty: Family Practice Address: [address] [place] [address], [address] Email: [email or web address] Robin Lee MD Family Provider Physician Specialty: Internal Medicine Address: [address] [place] [address], [address] Email: [email or web address] AMADA Knox Attending Provider Non-Staff Referring Provider Specialty: Medical Address: [address] [place] [address], [address], [facility] Email: Plan Of Care PT-OP-T Assessment and Plan Start: 07/15/21 16:54 Freq: Status: Active Protocol: Document 10/30/21 16:35 SAK (Rec: 10/30/21 16:42 [facility] [id number]) Physical Therapy Assessment Rehab Potential Rehabilitation Potential Fair Evaluation Complexity Number of Personal Factors/Comorbidities 3 or More Number of Body Systems Impaired 3 Clinical Presentation at Evaluation Stable Impairments Impairments Activity Tolerance,Balance, Functional Activities, Functional Mobility,Gait,Pain, Posture,ROM,Soft Tissue Mobility,Strength,Transfers Goals walk Impairment pt uses 4ww all time Short Term Goal (STG) pt will be able to walk with 2 hiking poles within home distance 10/13/21: goal met Mcc Goal (LTG) pt will be able to walk with 2 hiking poles at home and community 10/13/21: goal met at home, still mostly uses 4WW in community LTG Duration 12/29/21 hip angle Impairment pt has a 28 degrees hip flexion angle in standing Short Term Goal (STG) pt will show improved lumbar mobility and tolerance for WB activities who will be able to stand with <25 degrees hip flexion. 10/13/21: goal met Mcc Goal (LTG) pt will show improved lumbar mobility and tolerance for WB activities who will be able to stand with <25 degrees hip flexion. LTG Duration 12/29/21 Owestry Impairment pt scores 56 on Oswestry disability index score Short Term Goal (STG) pt will show improved overall mobility and strength by scoring <50 on Owestry 12/29/21: goal achieved. STG Duration goal met Mcc Goal (LTG) Patient will score less then 40 on Oswestry disability index score as measure of improved activity tolerance and abilty 12/29/21: goal progress LTG Duration 12/29/21 Assessment Summary Assessment Patient is making good progress toward goals as noted above,feels most benfit from aquatic therapy, and would like to continue. I feel has good potential for further gains with continued aquatic therapy to address his goals and be able to return to more active lifestyle. Physical Therapy Plan Frequency and Duration Frequency of Treatment 2x/Week Duration of Treatment 8 wks Plan of Care Start Date 10/13/21 Plan of Care End Date 12/29/21 Therapeutic Interventions Therapeutic Interventions Aquatic Therapy,Balance Training,Gait Training,Home Exercise Program,Joint Mobilizations,Manual Therapy, Neuromuscular Re-education, Patient/Caregiver Education, Self-Care/Home Management,Soft Tissue Mobilization,Taping, Therapeutic Activities, Therapeutic Exercises Modalities Cold Pack/Ice Massage,Electric Stimulation,Hot Packs, Infrared Therapy,Paraffin Bath ,Traction- Mechanical, Ultrasound Next Visit Focus/Plan Next Note Type Treatment Note Next Visit Plan Continue to progress aquatic therapy for strengthening, core stabilization, balance, and gait to address above goals. Plan of Care Dates Plan of Care Start Date 10/13/21 Plan of Care End Date 12/29/21 Electronically Signed by: Kateryna Shaffer, PT 10/30/21 [id number] Please Sign and Return: I have reviewed this Plan of Care and certify that the skilled therapy services above are required to meet the patient?s needs. Physician Signature Date Printed Name and Credentials Clinical Instructor Signature Printed Name and Credentials
--- NOTE | 2021-11-05 15:09 | PT.OTN ---
Current Diagnoses Spondylosis without myelopathy or radiculopathy, lumbar region (11/05/21) Physical Therapy Treatment Note PT-OP-A Visit Information Start: 07/15/21 16:54 Freq: Status: Active Protocol: Document 11/05/21 14:53 BRET (Rec: 11/05/21 15:09 [id number]) Out-Patient Physical Therapy Visit Information Visit Information Visit Type Aquatic Treatment Note Visit Start Time 11:45 Visit Stop Time 12:33 Total Visit Minutes 48 Visit Number Number of JUDICIAL ADMINISTRATIVE ASSISTANT Visits 4 PT-OP-B Current Condition Start: 07/15/21 16:54 Freq: Status: Active Protocol: Document 07/15/21 16:54 HH (Rec: 07/15/21 17:27 HH [id number]) Current Condition History of Current Condition Onset Date 2019 Current Complaints chronic back pain, weakness, difficulty in walking History of Current Condition Toribio is a 71 yo returning patient here for his debilitating chronic LBP. He had L4-L5 microdisectomy last year for his L4L5 ruptured disc. He then had significant loss of mobility and strength who now uses 4WW for all mobility. He bascially cannot stand straight and lay in prone position. He walks with a flexed posture to alleviate his pain. He saw his surgeon 2 months ago and did not recommend further back surgery. He had a course of PT with me but only limited progress (able to use hiking sticks to walk at one point). He has been going to the pool for water walking, mobility exercises and has been helpful for his strnegth and balance. He would like to do PT again to participate both land and aquative therapy. Personal Factors Other Personal Factors That May Effect overweight Therapy/Recovery previous heart attack CABG placement chronic back pain PT-OP-C Subjective Start: 07/15/21 16:54 Freq: Status: Active Protocol: Document 11/05/21 14:53 BRET (Rec: 11/05/21 15:09 [id number]) OP-PT Subjective Patient Comments Patient Comments Pt states his back was sore after last week at session. Possibly d/t stretch cord exercise with rotation. PT-OP-D Balance Start: 07/15/21 16:54 Freq: Status: Active Protocol: Document 07/15/21 16:54 HH (Rec: 07/15/21 17:27 HH [id number]) Balance Tests Single Limb Standing Single Limb- Right unable Single Limb- Left unable PT-OP-G Mobility & Gait Start: 07/15/21 16:54 Freq: Status: Active Protocol: Document 07/15/21 16:54 (Rec: 07/15/21 17:27 [id number]) OP Mobility Evaluation Bed Mobility Supine to and from Sit log roll method OP Gait Assessment Gait Gait Assistance Required: Independent Assistive Devices Assistive Device 4 Wheeled Walker Gait Deviations General Gait Pattern Flexed Trunk Factors Limiting Gait Function Factors Limiting Gait Function Limited Range of Motion,Pain Comments Gait Comments pt walks wth a significant flexed posture with a hyperextended lumbar spine. He often has to stop to keep his walker close to his body. PT-OP-H Neuro Start: 07/15/21 16:54 Freq: Status: Active Protocol: Document 07/15/21 16:54 (Rec: 07/15/21 17:27 [id number]) Sensation Evaluation Gross Sensation Gross Sensation WNL Deep Tendon Reflex & Clonus Assessment Deep Tendon Reflex Bilateral Achilles Deep Tendon Reflex 2+ Normal Right Patellar Deep Tendon Reflex 2+ Normal Left Patellar Deep Tendon Reflex 0 Absent PT-OP-J Posture/Palpation/Skin Start: 07/15/21 16:54 Freq: Status: Active Protocol: Document 07/15/21 16:54 (Rec: 07/15/21 17:27 [id number]) Posture Evaluation Position Standing T-Spine Posture Increased Kyphosis L-Spine Posture Increased Lordosis,Flexed Hip Posture (L) Flexed,(R) Flexed Knee Posture (L) Excess Flexion,(R) Excess Flexion PT-OP-K Range of Motion Start: 07/15/21 16:54 Freq: Status: Active Protocol: Document 07/15/21 16:54 (Rec: 07/15/21 17:27 [id number]) Lumbar Spine Range of Motion Lumbar Spine Active Degrees Comments hip angle in standing (normal posture) = 28 degrees in flexion hip angle in standing ( extended posture) = 25 degrees in flexion, pain at low back. PT-OP-L Special Tests Start: 07/15/21 16:54 Freq: Status: Active Protocol: Document 07/15/21 16:54 (Rec: 07/15/21 17:27 [id number]) Special Tests Lumbar Spine Special Tests Slump Test Results -ve Straight Leg Raise Test Results -ve Comments no rad pain but extension pain with SLR on R. PT-OP-M Strength Start: 07/15/21 16:54 Freq: Status: Active Protocol: Document 07/15/21 16:54 (Rec: 07/15/21 17:27 [id number]) Hip Strength Hip Manual Muscle Testing Right Flexion (L2) 3+ Fair+ Extension (S1) 4- Good- Abduction 4- Good- Adduction 4- Good- Comments low back pain with SLR flexion Left Flexion (L2) 4- Good- Extension (S1) 4- Good- Abduction 4+ Good+ Adduction 4+ Good+ Knee Strength Knee Manual Muscle Testing Right Flexion (S2) 5 Normal Extension (L3) 5 Normal Left Flexion (S2) 5 Normal Extension (L3) 5 Normal Ankle/Foot Strength Ankle and Foot Manual Muscle Testing Right Dorsiflexion (L4) 5 Normal Plantarflexion (S1) 5 Normal Left Dorsiflexion (L4) 5 Normal Plantarflexion (S1) 5 Normal PT-OP-Q Treatments Start: 07/15/21 16:54 Freq: Status: Active Protocol: Document 07/15/21 16:54 (Rec: 07/15/21 17:27 [id number]) Therapeutic Exercises Supine Exercises knee to chest Supine Exercise Name unilateral Side bilateral Reps/Minutes 20s x 5 Comments for HEP, rpeorts of pulling sensation on lumbar PT-OP-S Aquatic Treatment Start: 07/15/21 16:54 Freq: Status: Active Protocol: Document 11/05/21 14:53 BRET (Rec: 11/05/21 15:09 BRET [id number]) Aquatics Treatment Pool Entry/Exit Pool Entry/Exit Method Stairs Assistance Independent Water Walking circumduction to tandem Water Level Chest Level Walking Equipment Ankle Floats Level of Assistance Standby Assistance stop/start with direction change Water Level Chest Level Walking Equipment Ankle Floats Comments 2 min Lunge Walk Water Level Waist Level Walking Equipment Ankle Floats Level of Assistance Standby Assistance [place] March Water Level Chest Level Walking Equipment Ankle Floats Level of Assistance Standby Assistance Marching Water Level Chest Level Walking Equipment Ankle Floats Level of Assistance Standby Assistance,Verbal Cues Comments reaching opp side Sideways Water Level Chest Level Walking Equipment Resistance Fins Comments lg step over Backwards Water Level Chest Level Walking Equipment Ankle Floats Level of Assistance Standby Assistance Comments circumduction Lower Extremity Exercises SLS Body Position Standing Water Level Waist Level Reps/Duration 4 x B max time 40 sec LLE, 30 sec RLE Comments opposite foot on medial aspect of loaiza 4 way hip Details holding onto wall Body Position Standing Water Level Waist Level Equipment Ankle Floats Reps/Duration 10 x2 ea B Comments cues for posture Lower Extremity Stretches quads, HS, hip flexors Body Position Standing Reps/Duration 2 x 30 B Upper Extremity Exercises chest press Body Position Standing Water Level Waist Level Equipment cords Reps/Duration 15 Comments foot braced on wall rows Body Position Standing Water Level Chest Level Equipment cords Reps/Duration 30 flex/ext Body Position Standing Water Level Chest Level Equipment sm bells Reps/Duration 15 [place] Activities [place] Activities Bicycle,Bicycle Backwards, Cross Country Other Activities traction Equipment blue float, #3 wts, lg noodle PT-OP-T Assessment and Plan Start: 07/15/21 16:54 Freq: Status: Active Protocol: Document 11/05/21 14:53 BRET (Rec: 11/05/21 15:09 BRET [id number]) Physical Therapy Assessment Rehab Potential Rehabilitation Potential Fair Evaluation Complexity Number of Personal Factors/Comorbidities 3 or More Number of Body Systems Impaired 3 Clinical Presentation at Evaluation Stable Impairments Impairments Activity Tolerance,Balance, Functional Activities, Functional Mobility,Gait,Pain, Posture,ROM,Soft Tissue Mobility,Strength,Transfers Goals walk Impairment pt uses 4ww all time Short Term Goal (STG) pt will be able to walk with 2 hiking poles within home distance 10/13/21: goal met Systems Requirements Planner Goal (LTG) pt will be able to walk with 2 hiking poles at home and community 10/13/21: goal met at home, still mostly uses 4WW in community LTG Duration 12/29/21 hip angle Impairment pt has a 28 degrees hip flexion angle in standing Short Term Goal (STG) pt will show improved lumbar mobility and tolerance for WB activities who will be able to stand with <25 degrees hip flexion. 10/13/21: goal met Skilled Nursing Goal (LTG) pt will show improved lumbar mobility and tolerance for WB activities who will be able to stand with <25 degrees hip flexion. LTG Duration 12/29/21 Owestry Impairment pt scores 56 on Oswestry disability index score Short Term Goal (STG) pt will show improved overall mobility and strength by scoring <50 on Owestry 12/29/21: goal achieved. STG Duration goal met Systems Requirements Planner Goal (LTG) Patient will score less then 40 on Oswestry disability index score as measure of improved activity tolerance and abilty 12/29/21: goal progress LTG Duration 12/29/21 Assessment Summary Assessment Patient demonstrated improved balance with circumduction walking and SLS. His endurance is also improving as evidenced by no rest breaks between exercises. Though he is still flexed at the trunk, his posture with standing exercises is improving Physical Therapy Plan Frequency and Duration Frequency of Treatment 2x/Week Duration of Treatment 8 wks Plan of Care Start Date 10/13/21 Plan of Care End Date 12/29/21 Therapeutic Interventions Therapeutic Interventions Aquatic Therapy,Balance Training,Gait Training,Home Exercise Program,Joint Mobilizations,Manual Therapy, Neuromuscular Re-education, Patient/Caregiver Education, Self-Care/Home Management,Soft Tissue Mobilization,Taping, Therapeutic Activities, Therapeutic Exercises Modalities Cold Pack/Ice Massage,Electric Stimulation,Hot Packs, Infrared Therapy,Paraffin Bath ,Traction- Mechanical, Ultrasound Next Visit Focus/Plan Next Note Type Treatment Note Next Visit Plan Continue to progress AT to include interval training for cardiorespiratory improvement. Add resistance fins in deep water for progressing strength training.
--- NOTE | 2021-11-12 10:15 | PT.OTN ---
Current Diagnoses Spondylosis without myelopathy or radiculopathy, lumbar region (11/12/21) Physical Therapy Treatment Note PT-OP-A Visit Information Start: 07/15/21 16:54 Freq: Status: Active Protocol: Document 11/12/21 10:15 SAK (Rec: 11/13/21 16:18 [facility] [id number]) Out-Patient Physical Therapy Visit Information Visit Information Visit Type Aquatic Treatment Note Visit Start Time 10:15 Visit Stop Time 11:00 Total Visit Minutes 45 Visit Number PT-OP-B Current Condition Start: 07/15/21 16:54 Freq: Status: Active Protocol: Document 07/15/21 16:54 HH (Rec: 07/15/21 17:27 HH [id number]) Current Condition History of Current Condition Onset Date 2019 Current Complaints chronic back pain, weakness, difficulty in walking History of Current Condition Toribio is a 71 yo returning patient here for his debilitating chronic LBP. He had L4-L5 microdisectomy last year for his L4L5 ruptured disc. He then had significant loss of mobility and strength who now uses 4WW for all mobility. He bascially cannot stand straight and lay in prone position. He walks with a flexed posture to alleviate his pain. He saw his surgeon 2 months ago and did not recommend further back surgery. He had a course of PT with me but only limited progress (able to use hiking sticks to walk at one point). He has been going to the pool for water walking, mobility exercises and has been helpful for his strnegth and balance. He would like to do PT again to participate both land and aquative therapy. Personal Factors Other Personal Factors That May Effect overweight Therapy/Recovery previous heart attack CABG placement chronic back pain PT-OP-C Subjective Start: 07/15/21 16:54 Freq: Status: Active Protocol: Document 11/12/21 10:15 SAK (Rec: 11/13/21 16:18 [facility] [id number]) OP-PT Subjective Patient Comments Patient Comments No new c/o, reports feeling he is progressing. Forgot his fins in the car. PT-OP-D Balance Start: 07/15/21 16:54 Freq: Status: Active Protocol: Document 07/15/21 16:54 HH (Rec: 07/15/21 17:27 HH [id number]) Balance Tests Single Limb Standing Single Limb- Right unable Single Limb- Left unable PT-OP-G Mobility & Gait Start: 07/15/21 16:54 Freq: Status: Active Protocol: Document 07/15/21 16:54 (Rec: 07/15/21 17:27 [id number]) OP Mobility Evaluation Bed Mobility Supine to and from Sit log roll method OP Gait Assessment Gait Gait Assistance Required: Independent Assistive Devices Assistive Device 4 Wheeled Walker Gait Deviations General Gait Pattern Flexed Trunk Factors Limiting Gait Function Factors Limiting Gait Function Limited Range of Motion,Pain Comments Gait Comments pt walks wth a significant flexed posture with a hyperextended lumbar spine. He often has to stop to keep his walker close to his body. PT-OP-H Neuro Start: 07/15/21 16:54 Freq: Status: Active Protocol: Document 07/15/21 16:54 (Rec: 07/15/21 17:27 [id number]) Sensation Evaluation Gross Sensation Gross Sensation WNL Deep Tendon Reflex & Clonus Assessment Deep Tendon Reflex Bilateral Achilles Deep Tendon Reflex 2+ Normal Right Patellar Deep Tendon Reflex 2+ Normal Left Patellar Deep Tendon Reflex 0 Absent PT-OP-J Posture/Palpation/Skin Start: 07/15/21 16:54 Freq: Status: Active Protocol: Document 07/15/21 16:54 (Rec: 07/15/21 17:27 [id number]) Posture Evaluation Position Standing T-Spine Posture Increased Kyphosis L-Spine Posture Increased Lordosis,Flexed Hip Posture (L) Flexed,(R) Flexed Knee Posture (L) Excess Flexion,(R) Excess Flexion PT-OP-K Range of Motion Start: 07/15/21 16:54 Freq: Status: Active Protocol: Document 07/15/21 16:54 HH (Rec: 07/15/21 17:27 [id number]) Lumbar Spine Range of Motion Lumbar Spine Active Degrees Comments hip angle in standing (normal posture) = 28 degrees in flexion hip angle in standing ( extended posture) = 25 degrees in flexion, pain at low back. PT-OP-L Special Tests Start: 07/15/21 16:54 Freq: Status: Active Protocol: Document 07/15/21 16:54 (Rec: 07/15/21 17:27 [id number]) Special Tests Lumbar Spine Special Tests Slump Test Results -ve Straight Leg Raise Test Results -ve Comments no rad pain but extension pain with SLR on R. PT-OP-M Strength Start: 07/15/21 16:54 Freq: Status: Active Protocol: Document 07/15/21 16:54 HH (Rec: 07/15/21 17:27 HH [id number]) Hip Strength Hip Manual Muscle Testing Right Flexion (L2) 3+ Fair+ Extension (S1) 4- Good- Abduction 4- Good- Adduction 4- Good- Comments low back pain with SLR flexion Left Flexion (L2) 4- Good- Extension (S1) 4- Good- Abduction 4+ Good+ Adduction 4+ Good+ Knee Strength Knee Manual Muscle Testing Right Flexion (S2) 5 Normal Extension (L3) 5 Normal Left Flexion (S2) 5 Normal Extension (L3) 5 Normal Ankle/Foot Strength Ankle and Foot Manual Muscle Testing Right Dorsiflexion (L4) 5 Normal Plantarflexion (S1) 5 Normal Left Dorsiflexion (L4) 5 Normal Plantarflexion (S1) 5 Normal PT-OP-Q Treatments Start: 07/15/21 16:54 Freq: Status: Active Protocol: Document 07/15/21 16:54 (Rec: 07/15/21 17:27 [id number]) Therapeutic Exercises Supine Exercises knee to chest Supine Exercise Name unilateral Side bilateral Reps/Minutes 20s x 5 Comments for HEP, rpeorts of pulling sensation on lumbar PT-OP-S Aquatic Treatment Start: 07/15/21 16:54 Freq: Status: Active Protocol: Document 11/12/21 10:15 [facility] (Rec: 11/13/21 16:18 [facility] [id number]) Aquatics Treatment Pool Entry/Exit Pool Entry/Exit Method Stairs Assistance Independent Water Walking circumduction to tandem Water Level Chest Level Walking Equipment Ankle Floats Level of Assistance Standby Assistance stop/start with direction change Water Level Chest Level Walking Equipment Ankle Floats Comments 2 min Lunge Walk Water Level Waist Level Walking Equipment Ankle Floats Level of Assistance Standby Assistance [place] March Water Level Chest Level Walking Equipment Ankle Floats Level of Assistance Standby Assistance Marching Water Level Chest Level Walking Equipment Ankle Floats Level of Assistance Standby Assistance,Verbal Cues Comments reaching opp side Lower Extremity Exercises 4 way hip Details holding onto wall Body Position Standing Water Level Waist Level Equipment Ankle Floats Reps/Duration 10 x2 ea B Comments cues for posture Lower Extremity Stretches quads, HS, hip flexors Body Position Standing Reps/Duration 2 x 30 B Swim Strokes sidestroke Laps/Duration 10m x 2 Crawl Laps/Duration 10m x 3 kick on back Equipment Flotation Belt,Neck Float modified breaststroke Laps/Duration 10m x 1 Other water recovery Details supine to stand, prone to stand Reps/Duration 3x ea Comments verbal and manual cues PT-OP-T Assessment and Plan Start: 07/15/21 16:54 Freq: Status: Active Protocol: Document 11/12/21 10:15 SAK (Rec: 11/13/21 16:18 [facility] [id number]) Physical Therapy Assessment Rehab Potential Rehabilitation Potential Fair Evaluation Complexity Number of Personal Factors/Comorbidities 3 or More Number of Body Systems Impaired 3 Clinical Presentation at Evaluation Stable Impairments Impairments Activity Tolerance,Balance, Functional Activities, Functional Mobility,Gait,Pain, Posture,ROM,Soft Tissue Mobility,Strength,Transfers Goals walk Impairment pt uses 4ww all time Short Term Goal (STG) pt will be able to walk with 2 hiking poles within home distance 10/13/21: goal met Intermediate Goal (LTG) pt will be able to walk with 2 hiking poles at home and community 10/13/21: goal met at home, still mostly uses 4WW in community LTG Duration 12/29/21 hip angle Impairment pt has a 28 degrees hip flexion angle in standing Short Term Goal (STG) pt will show improved lumbar mobility and tolerance for WB activities who will be able to stand with <25 degrees hip flexion. 10/13/21: goal met Intermediate Goal (LTG) pt will show improved lumbar mobility and tolerance for WB activities who will be able to stand with <25 degrees hip flexion. LTG Duration 12/29/21 Owestry Impairment pt scores 56 on Oswestry disability index score Short Term Goal (STG) pt will show improved overall mobility and strength by scoring <50 on Owestry 12/29/21: goal achieved. STG Duration goal met Intermediate Goal (LTG) Patient will score less then 40 on Oswestry disability index score as measure of improved activity tolerance and abilty 12/29/21: goal progress LTG Duration 12/29/21 Assessment Summary Assessment Worked on patient safety with recovery skills if either swimming or loses balance; required SB to min assist and verbal cues. Increased swim component for strengthening. Patient to bring fins next session. Physical Therapy Plan Frequency and Duration Frequency of Treatment 2x/Week Duration of Treatment 8 wks Plan of Care Start Date 10/13/21 Plan of Care End Date 12/29/21 Therapeutic Interventions Therapeutic Interventions Aquatic Therapy,Balance Training,Gait Training,Home Exercise Program,Joint Mobilizations,Manual Therapy, Neuromuscular Re-education, Patient/Caregiver Education, Self-Care/Home Management,Soft Tissue Mobilization,Taping, Therapeutic Activities, Therapeutic Exercises Modalities Cold Pack/Ice Massage,Electric Stimulation,Hot Packs, Infrared Therapy,Paraffin Bath ,Traction- Mechanical, Ultrasound Next Visit Focus/Plan Next Note Type Treatment Note Next Visit Plan Continue to progress AT to include interval training for cardiorespiratory improvement. Add resistance fins in deep water for progressing strength training as well as swimming strengthening.
--- NOTE | 2021-12-12 14:47 | PT.OTN ---
Current Diagnoses Spondylosis without myelopathy or radiculopathy, lumbar region (12/12/21) Physical Therapy Treatment Note PT-OP-A Visit Information Start: 07/15/21 16:54 Freq: Status: Active Protocol: Document 12/12/21 14:38 SAK (Rec: 12/12/21 14:47 [facility] [id number]) Out-Patient Physical Therapy Visit Information Visit Information Visit Type Aquatic Treatment Note Visit Start Time 13:15 Visit Stop Time 14:00 Total Visit Minutes 45 Visit Number PT-OP-B Current Condition Start: 07/15/21 16:54 Freq: Status: Active Protocol: Document 07/15/21 16:54 HH (Rec: 07/15/21 17:27 HH [id number]) Current Condition History of Current Condition Onset Date 2019 Current Complaints chronic back pain, weakness, difficulty in walking History of Current Condition Toribio is a 71 yo returning patient here for his debilitating chronic LBP. He had L4-L5 microdisectomy last year for his L4L5 ruptured disc. He then had significant loss of mobility and strength who now uses 4WW for all mobility. He bascially cannot stand straight and lay in prone position. He walks with a flexed posture to alleviate his pain. He saw his surgeon 2 months ago and did not recommend further back surgery. He had a course of PT with me but only limited progress (able to use hiking sticks to walk at one point). He has been going to the pool for water walking, mobility exercises and has been helpful for his strnegth and balance. He would like to do PT again to participate both land and aquative therapy. Personal Factors Other Personal Factors That May Effect overweight Therapy/Recovery previous heart attack CABG placement chronic back pain PT-OP-C Subjective Start: 07/15/21 16:54 Freq: Status: Active Protocol: Document 12/12/21 14:38 SAK (Rec: 12/12/21 14:47 [facility] [id number]) OP-PT Subjective Patient Comments Patient Comments Patient reports he hasn't yet felt brave enough to try swimming, not sure he can coordinate it, especially the breathing. Used to swim regularly. Continues with HEP and coming to the pool 4-5 days per week. PT-OP-D Balance Start: 07/15/21 16:54 Freq: Status: Active Protocol: Document 07/15/21 16:54 (Rec: 07/15/21 17:27 [id number]) Balance Tests Single Limb Standing Single Limb- Right unable Single Limb- Left unable PT-OP-G Mobility & Gait Start: 07/15/21 16:54 Freq: Status: Active Protocol: Document 07/15/21 16:54 HH (Rec: 07/15/21 17:27 [id number]) OP Mobility Evaluation Bed Mobility Supine to and from Sit log roll method OP Gait Assessment Gait Gait Assistance Required: Independent Assistive Devices Assistive Device 4 Wheeled Walker Gait Deviations General Gait Pattern Flexed Trunk Factors Limiting Gait Function Factors Limiting Gait Function Limited Range of Motion,Pain Comments Gait Comments pt walks wth a significant flexed posture with a hyperextended lumbar spine. He often has to stop to keep his walker close to his body. PT-OP-H Neuro Start: 07/15/21 16:54 Freq: Status: Active Protocol: Document 07/15/21 16:54 HH (Rec: 07/15/21 17:27 [id number]) Sensation Evaluation Gross Sensation Gross Sensation WNL Deep Tendon Reflex & Clonus Assessment Deep Tendon Reflex Bilateral Achilles Deep Tendon Reflex 2+ Normal Right Patellar Deep Tendon Reflex 2+ Normal Left Patellar Deep Tendon Reflex 0 Absent PT-OP-J Posture/Palpation/Skin Start: 07/15/21 16:54 Freq: Status: Active Protocol: Document 07/15/21 16:54 (Rec: 07/15/21 17:27 [id number]) Posture Evaluation Position Standing T-Spine Posture Increased Kyphosis L-Spine Posture Increased Lordosis,Flexed Hip Posture (L) Flexed,(R) Flexed Knee Posture (L) Excess Flexion,(R) Excess Flexion PT-OP-K Range of Motion Start: 07/15/21 16:54 Freq: Status: Active Protocol: Document 07/15/21 16:54 (Rec: 07/15/21 17:27 [id number]) Lumbar Spine Range of Motion Lumbar Spine Active Degrees Comments hip angle in standing (normal posture) = 28 degrees in flexion hip angle in standing ( extended posture) = 25 degrees in flexion, pain at low back. PT-OP-L Special Tests Start: 07/15/21 16:54 Freq: Status: Active Protocol: Document 07/15/21 16:54 (Rec: 07/15/21 17:27 [id number]) Special Tests Lumbar Spine Special Tests Slump Test Results -ve Straight Leg Raise Test Results -ve Comments no rad pain but extension pain with SLR on R. PT-OP-M Strength Start: 07/15/21 16:54 Freq: Status: Active Protocol: Document 07/15/21 16:54 (Rec: 07/15/21 17:27 [id number]) Hip Strength Hip Manual Muscle Testing Right Flexion (L2) 3+ Fair+ Extension (S1) 4- Good- Abduction 4- Good- Adduction 4- Good- Comments low back pain with SLR flexion Left Flexion (L2) 4- Good- Extension (S1) 4- Good- Abduction 4+ Good+ Adduction 4+ Good+ Knee Strength Knee Manual Muscle Testing Right Flexion (S2) 5 Normal Extension (L3) 5 Normal Left Flexion (S2) 5 Normal Extension (L3) 5 Normal Ankle/Foot Strength Ankle and Foot Manual Muscle Testing Right Dorsiflexion (L4) 5 Normal Plantarflexion (S1) 5 Normal Left Dorsiflexion (L4) 5 Normal Plantarflexion (S1) 5 Normal PT-OP-Q Treatments Start: 07/15/21 16:54 Freq: Status: Active Protocol: Document 07/15/21 16:54 (Rec: 07/15/21 17:27 [id number]) Therapeutic Exercises Supine Exercises knee to chest Supine Exercise Name unilateral Side bilateral Reps/Minutes 20s x 5 Comments for HEP, rpeorts of pulling sensation on lumbar PT-OP-S Aquatic Treatment Start: 07/15/21 16:54 Freq: Status: Active Protocol: Document 12/12/21 14:38 [facility] (Rec: 12/12/21 14:47 [facility] [id number]) Aquatics Treatment Pool Entry/Exit Pool Entry/Exit Method Stairs Assistance Independent Water Walking circumduction to tandem Water Level Chest Level Walking Equipment Ankle Floats Level of Assistance Standby Assistance [place] March Water Level Chest Level Walking Equipment Ankle Floats Level of Assistance Standby Assistance Marching Water Level Chest Level Walking Equipment Ankle Floats Level of Assistance Standby Assistance,Verbal Cues Comments reaching opp side [place] Water Level Chest Level Walking Equipment fins Spinal Exercises tiltboard sit Reps/Duration 3 min Comments cues for minimal use of UE's and LE's UE pull downs Details front pull down Water Level Chest Level Equipment small barbells Reps/Duration 10x2 Comments cues for core activation Swim Strokes Backstroke Equipment Flotation Belt Other Equipment Used fins Laps/Duration 10m x 2 sidestroke Equipment Flotation Belt Laps/Duration 10m x 2 Crawl Equipment Flotation Belt Laps/Duration 10m x 3 Comments belt at chest kick on back Equipment Flotation Belt Other Equipment Used fins Laps/Duration 10 m x 3 flutter kick Equipment Flotation Belt,Kickboard Laps/Duration 25 M Comments prone Other water recovery Details supine to stand Equipment large ankle floats Reps/Duration 2x Comments max assist PT-OP-T Assessment and Plan Start: 07/15/21 16:54 Freq: Status: Active Protocol: Document 12/12/21 14:38 [facility] (Rec: 12/12/21 14:47 [facility] [id number]) Physical Therapy Assessment Impairments Impairments Activity Tolerance,Balance, Functional Activities, Functional Mobility,Gait,Pain, Posture,ROM,Soft Tissue Mobility,Strength,Transfers Goals walk Impairment pt uses 4ww all time Short Term Goal (STG) pt will be able to walk with 2 hiking poles within home distance 10/13/21: goal met [employer] Goal (LTG) pt will be able to walk with 2 hiking poles at home and community 10/13/21: goal met at home, still mostly uses 4WW in community LTG Duration 12/29/21 hip angle Impairment pt has a 28 degrees hip flexion angle in standing Short Term Goal (STG) pt will show improved lumbar mobility and tolerance for WB activities who will be able to stand with <25 degrees hip flexion. 10/13/21: goal met [facility] Goal (LTG) pt will show improved lumbar mobility and tolerance for WB activities who will be able to stand with <25 degrees hip flexion. LTG Duration 12/29/21 Owestry Impairment pt scores 56 on Oswestry disability index score Short Term Goal (STG) pt will show improved overall mobility and strength by scoring <50 on Owestry 12/29/21: goal achieved. STG Duration goal met [employer] Goal (LTG) Patient will score less then 40 on Oswestry disability index score as measure of improved activity tolerance and abilty 12/29/21: goal progress LTG Duration 12/29/21 Assessment Summary Assessment Patient required flotation belt with swim activities, initially much difficulty with breathing with prone swim, but with instruction and repetition improved ability, max 12m at a time. Required mod assistance 1x when trying to attain standing after prone swim. Unable to attain standing from supine with ankle floats on. Physical Therapy Plan Frequency and Duration Frequency of Treatment 2x/Week Duration of Treatment 8 wks Plan of Care Start Date 10/13/21 Plan of Care End Date 12/29/21 Therapeutic Interventions Therapeutic Interventions Aquatic Therapy,Balance Training,Gait Training,Home Exercise Program,Joint Mobilizations,Manual Therapy, Neuromuscular Re-education, Patient/Caregiver Education, Self-Care/Home Management,Soft Tissue Mobilization,Taping, Therapeutic Activities, Therapeutic Exercises Modalities Cold Pack/Ice Massage,Electric Stimulation,Hot Packs, Infrared Therapy,Paraffin Bath ,Traction- Mechanical, Ultrasound Next Visit Focus/Plan Next Note Type Treatment Note Next Visit Plan Evaluate response to last PT session with increased emphasis on strengthening through swimming, walking with fins, core with pull downs and tiltboard. Add supine crunches.
--- NOTE | 2022-01-05 15:13 | PT.OTN ---
Current Diagnoses Spondylosis without myelopathy or radiculopathy, lumbar region (01/05/22) Physical Therapy Treatment Note PT-OP-A Visit Information Start: 07/15/21 16:54 Freq: Status: Active Protocol: Document 01/05/22 15:04 [facility] (Rec: 01/05/22 15:13 [facility] [id number]) Out-Patient Physical Therapy Visit Information Visit Information Visit Type Aquatic Treatment Note Visit Start Time 12:00 Visit Stop Time 12:30 Total Visit Minutes 30 Visit Number PT-OP-B Current Condition Start: 07/15/21 16:54 Freq: Status: Active Protocol: Document 07/15/21 16:54 HH (Rec: 07/15/21 17:27 HH [id number]) Current Condition History of Current Condition Onset Date 2019 Current Complaints chronic back pain, weakness, difficulty in walking History of Current Condition Toribio is a 71 yo returning patient here for his debilitating chronic LBP. He had L4-L5 microdisectomy last year for his L4L5 ruptured disc. He then had significant loss of mobility and strength who now uses 4WW for all mobility. He bascially cannot stand straight and lay in prone position. He walks with a flexed posture to alleviate his pain. He saw his surgeon 2 months ago and did not recommend further back surgery. He had a course of PT with me but only limited progress (able to use hiking sticks to walk at one point). He has been going to the pool for water walking, mobility exercises and has been helpful for his strnegth and balance. He would like to do PT again to participate both land and aquative therapy. Personal Factors Other Personal Factors That May Effect overweight Therapy/Recovery previous heart attack CABG placement chronic back pain PT-OP-C Subjective Start: 07/15/21 16:54 Freq: Status: Active Protocol: Document 01/05/22 15:04 [facility] (Rec: 01/05/22 15:13 [facility] [id number]) OP-PT Subjective Patient Comments Patient Comments Patient states he feels weak in the legs over the weekend on days when not coming to the pool. Denies feeling numbness or nerve compression symptoms. PT-OP-D Balance Start: 07/15/21 16:54 Freq: Status: Active Protocol: Document 07/15/21 16:54 HH (Rec: 07/15/21 17:27 HH [id number]) Balance Tests Single Limb Standing Single Limb- Right unable Single Limb- Left unable PT-OP-G Mobility & Gait Start: 07/15/21 16:54 Freq: Status: Active Protocol: Document 07/15/21 16:54 HH (Rec: 07/15/21 17:27 [id number]) OP Mobility Evaluation Bed Mobility Supine to and from Sit log roll method OP Gait Assessment Gait Gait Assistance Required: Independent Assistive Devices Assistive Device 4 Wheeled Walker Gait Deviations General Gait Pattern Flexed Trunk Factors Limiting Gait Function Factors Limiting Gait Function Limited Range of Motion,Pain Comments Gait Comments pt walks wth a significant flexed posture with a hyperextended lumbar spine. He often has to stop to keep his walker close to his body. PT-OP-H Neuro Start: 07/15/21 16:54 Freq: Status: Active Protocol: Document 07/15/21 16:54 HH (Rec: 07/15/21 17:27 [id number]) Sensation Evaluation Gross Sensation Gross Sensation WNL Deep Tendon Reflex & Clonus Assessment Deep Tendon Reflex Bilateral Achilles Deep Tendon Reflex 2+ Normal Right Patellar Deep Tendon Reflex 2+ Normal Left Patellar Deep Tendon Reflex 0 Absent PT-OP-J Posture/Palpation/Skin Start: 07/15/21 16:54 Freq: Status: Active Protocol: Document 07/15/21 16:54 (Rec: 07/15/21 17:27 [id number]) Posture Evaluation Position Standing T-Spine Posture Increased Kyphosis L-Spine Posture Increased Lordosis,Flexed Hip Posture (L) Flexed,(R) Flexed Knee Posture (L) Excess Flexion,(R) Excess Flexion PT-OP-K Range of Motion Start: 07/15/21 16:54 Freq: Status: Active Protocol: Document 07/15/21 16:54 HH (Rec: 07/15/21 17:27 [id number]) Lumbar Spine Range of Motion Lumbar Spine Active Degrees Comments hip angle in standing (normal posture) = 28 degrees in flexion hip angle in standing ( extended posture) = 25 degrees in flexion, pain at low back. PT-OP-L Special Tests Start: 07/15/21 16:54 Freq: Status: Active Protocol: Document 07/15/21 16:54 HH (Rec: 07/15/21 17:27 [id number]) Special Tests Lumbar Spine Special Tests Slump Test Results -ve Straight Leg Raise Test Results -ve Comments no rad pain but extension pain with SLR on R. PT-OP-M Strength Start: 07/15/21 16:54 Freq: Status: Active Protocol: Document 07/15/21 16:54 (Rec: 07/15/21 17:27 [id number]) Hip Strength Hip Manual Muscle Testing Right Flexion (L2) 3+ Fair+ Extension (S1) 4- Good- Abduction 4- Good- Adduction 4- Good- Comments low back pain with SLR flexion Left Flexion (L2) 4- Good- Extension (S1) 4- Good- Abduction 4+ Good+ Adduction 4+ Good+ Knee Strength Knee Manual Muscle Testing Right Flexion (S2) 5 Normal Extension (L3) 5 Normal Left Flexion (S2) 5 Normal Extension (L3) 5 Normal Ankle/Foot Strength Ankle and Foot Manual Muscle Testing Right Dorsiflexion (L4) 5 Normal Plantarflexion (S1) 5 Normal Left Dorsiflexion (L4) 5 Normal Plantarflexion (S1) 5 Normal PT-OP-Q Treatments Start: 07/15/21 16:54 Freq: Status: Active Protocol: Document 07/15/21 16:54 (Rec: 07/15/21 17:27 [id number]) Therapeutic Exercises Supine Exercises knee to chest Supine Exercise Name unilateral Side bilateral Reps/Minutes 20s x 5 Comments for HEP, rpeorts of pulling sensation on lumbar PT-OP-S Aquatic Treatment Start: 07/15/21 16:54 Freq: Status: Active Protocol: Document 01/05/22 15:04 [facility] (Rec: 01/05/22 15:13 [facility] [id number]) Aquatics Treatment Pool Entry/Exit Pool Entry/Exit Method Stairs Assistance Independent Water Walking [place] March Water Level Chest Level Walking Equipment Ankle Floats Level of Assistance Standby Assistance March Water Level Chest Level Walking Equipment Ankle Floats Level of Assistance Standby Assistance,Verbal Cues Comments reaching opp side Backwards Water Level Chest Level Walking Equipment Ankle Floats Level of Assistance Standby Assistance Lower Extremity Exercises 4 way hip Details no UE support Body Position Standing Water Level Waist Level Equipment Ankle Floats Reps/Duration 10 x2 ea B Comments cues for posture Lower Extremity Stretches quads, HS, hip flexors Equipment large ankle floats Balance noodle stand Equipment small noodle Reps/Duration 2' Comments UE support on wall SLS Water Level Chest Level Reps/Duration 30 sec left, 15 sec R Comments cues to stand tall Other water recovery Details supine to stand Equipment large ankle floats Reps/Duration 1x Comments max assist PT-OP-T Assessment and Plan Start: 07/15/21 16:54 Freq: Status: Active Protocol: Document 01/05/22 15:04 [facility] (Rec: 01/05/22 15:13 [facility] [id number]) Physical Therapy Assessment Impairments Impairments Activity Tolerance,Balance, Functional Activities, Functional Mobility,Gait,Pain, Posture,ROM,Soft Tissue Mobility,Strength,Transfers Goals walk Impairment pt uses 4ww all time Short Term Goal (STG) pt will be able to walk with 2 hiking poles within home distance 10/13/21: goal met Relief Driller Goal (LTG) pt will be able to walk with 2 hiking poles at home and community 10/13/21: goal met at home, still mostly uses 4WW in community LTG Duration 12/29/21 hip angle Impairment pt has a 28 degrees hip flexion angle in standing Short Term Goal (STG) pt will show improved lumbar mobility and tolerance for WB activities who will be able to stand with <25 degrees hip flexion. 10/13/21: goal met [facility] Goal (LTG) pt will show improved lumbar mobility and tolerance for WB activities who will be able to stand with <25 degrees hip flexion. LTG Duration 12/29/21 Owestry Impairment pt scores 56 on Oswestry disability index score Short Term Goal (STG) pt will show improved overall mobility and strength by scoring <50 on Owestry 12/29/21: goal achieved. STG Duration goal met Relief Driller Goal (LTG) Patient will score less then 40 on Oswestry disability index score as measure of improved activity tolerance and abilty 12/29/21: goal progress LTG Duration 12/29/21 Assessment Summary Assessment Today's appointment unanticipated (PT had no show and patient had come to pool on own.)so no reassessment this date. Will do at next visit. Patient needs cues and encouragement to challenge himself including with equipment when comes to pool. Physical Therapy Plan Frequency and Duration Frequency of Treatment 2x/Week Duration of Treatment 8 wks Plan of Care Start Date 10/13/21 Plan of Care End Date 12/29/21 Therapeutic Interventions Therapeutic Interventions Aquatic Therapy,Balance Training,Gait Training,Home Exercise Program,Joint Mobilizations,Manual Therapy, Neuromuscular Re-education, Patient/Caregiver Education, Self-Care/Home Management,Soft Tissue Mobilization,Taping, Therapeutic Activities, Therapeutic Exercises Modalities Cold Pack/Ice Massage,Electric Stimulation,Hot Packs, Infrared Therapy,Paraffin Bath ,Traction- Mechanical, Ultrasound Next Visit Focus/Plan Next Note Type Re-Evaluation Next Visit Plan Continue progression of aquatic exercise program, consider land-based PT as well .
--- NOTE | 2022-01-07 17:02 | PT.OTN ---
Current Diagnoses Spondylosis without myelopathy or radiculopathy, lumbar region (01/07/22) Physical Therapy Treatment Note PT-OP-A Visit Information Start: 07/15/21 16:54 Freq: Status: Active Protocol: Document 01/07/22 11:45 [facility] (Rec: 01/08/22 17:02 [facility] [id number]) Out-Patient Physical Therapy Visit Information Visit Information Visit Type Aquatic Treatment Note Visit Start Time 11:45 Visit Stop Time 12:30 Total Visit Minutes 31 Visit Number [id number] PT-OP-B Current Condition Start: 07/15/21 16:54 Freq: Status: Active Protocol: Document 07/15/21 16:54 HH (Rec: 07/15/21 17:27 HH [id number]) Current Condition History of Current Condition Onset Date 2019 Current Complaints chronic back pain, weakness, difficulty in walking History of Current Condition Toribio is a 71 yo returning patient here for his debilitating chronic LBP. He had L4-L5 microdisectomy last year for his L4L5 ruptured disc. He then had significant loss of mobility and strength who now uses 4WW for all mobility. He bascially cannot stand straight and lay in prone position. He walks with a flexed posture to alleviate his pain. He saw his surgeon 2 months ago and did not recommend further back surgery. He had a course of PT with me but only limited progress (able to use hiking sticks to walk at one point). He has been going to the pool for water walking, mobility exercises and has been helpful for his strnegth and balance. He would like to do PT again to participate both land and aquative therapy. Personal Factors Other Personal Factors That May Effect overweight Therapy/Recovery previous heart attack CABG placement chronic back pain PT-OP-C Subjective Start: 07/15/21 16:54 Freq: Status: Active Protocol: Document 01/07/22 11:45 [facility] (Rec: 01/08/22 17:02 [facility] [id number]) OP-PT Subjective Patient Comments Patient Comments Reports has had recent increase in his low back pain that is causing him to walk more bent over and tolerate less activity especially on land. Discussed potential for prone swimming activities to be contributing if he d/t lumbar exension. Also discussed potential for patient to do some land-based PT appointments. PT-OP-D Balance Start: 07/15/21 16:54 Freq: Status: Active Protocol: Document 07/15/21 16:54 (Rec: 07/15/21 17:27 [id number]) Balance Tests Single Limb Standing Single Limb- Right unable Single Limb- Left unable PT-OP-G Mobility & Gait Start: 07/15/21 16:54 Freq: Status: Active Protocol: Document 07/15/21 16:54 HH (Rec: 07/15/21 17:27 [id number]) OP Mobility Evaluation Bed Mobility Supine to and from Sit log roll method OP Gait Assessment Gait Gait Assistance Required: Independent Assistive Devices Assistive Device 4 Wheeled Walker Gait Deviations General Gait Pattern Flexed Trunk Factors Limiting Gait Function Factors Limiting Gait Function Limited Range of Motion,Pain Comments Gait Comments pt walks wth a significant flexed posture with a hyperextended lumbar spine. He often has to stop to keep his walker close to his body. PT-OP-H Neuro Start: 07/15/21 16:54 Freq: Status: Active Protocol: Document 07/15/21 16:54 (Rec: 07/15/21 17:27 [id number]) Sensation Evaluation Gross Sensation Gross Sensation WNL Deep Tendon Reflex & Clonus Assessment Deep Tendon Reflex Bilateral Achilles Deep Tendon Reflex 2+ Normal Right Patellar Deep Tendon Reflex 2+ Normal Left Patellar Deep Tendon Reflex 0 Absent PT-OP-J Posture/Palpation/Skin Start: 07/15/21 16:54 Freq: Status: Active Protocol: Document 07/15/21 16:54 (Rec: 07/15/21 17:27 [id number]) Posture Evaluation Position Standing T-Spine Posture Increased Kyphosis L-Spine Posture Increased Lordosis,Flexed Hip Posture (L) Flexed,(R) Flexed Knee Posture (L) Excess Flexion,(R) Excess Flexion PT-OP-K Range of Motion Start: 07/15/21 16:54 Freq: Status: Active Protocol: Document 07/15/21 16:54 (Rec: 07/15/21 17:27 [id number]) Lumbar Spine Range of Motion Lumbar Spine Active Degrees Comments hip angle in standing (normal posture) = 28 degrees in flexion hip angle in standing ( extended posture) = 25 degrees in flexion, pain at low back. PT-OP-L Special Tests Start: 07/15/21 16:54 Freq: Status: Active Protocol: Document 07/15/21 16:54 (Rec: 07/15/21 17:27 [id number]) Special Tests Lumbar Spine Special Tests Slump Test Results -ve Straight Leg Raise Test Results -ve Comments no rad pain but extension pain with SLR on R. PT-OP-M Strength Start: 07/15/21 16:54 Freq: Status: Active Protocol: Document 07/15/21 16:54 (Rec: 07/15/21 17:27 [id number]) Hip Strength Hip Manual Muscle Testing Right Flexion (L2) 3+ Fair+ Extension (S1) 4- Good- Abduction 4- Good- Adduction 4- Good- Comments low back pain with SLR flexion Left Flexion (L2) 4- Good- Extension (S1) 4- Good- Abduction 4+ Good+ Adduction 4+ Good+ Knee Strength Knee Manual Muscle Testing Right Flexion (S2) 5 Normal Extension (L3) 5 Normal Left Flexion (S2) 5 Normal Extension (L3) 5 Normal Ankle/Foot Strength Ankle and Foot Manual Muscle Testing Right Dorsiflexion (L4) 5 Normal Plantarflexion (S1) 5 Normal Left Dorsiflexion (L4) 5 Normal Plantarflexion (S1) 5 Normal PT-OP-Q Treatments Start: 07/15/21 16:54 Freq: Status: Active Protocol: Document 07/15/21 16:54 (Rec: 07/15/21 17:27 [id number]) Therapeutic Exercises Supine Exercises knee to chest Supine Exercise Name unilateral Side bilateral Reps/Minutes 20s x 5 Comments for HEP, rpeorts of pulling sensation on lumbar PT-OP-S Aquatic Treatment Start: 07/15/21 16:54 Freq: Status: Active Protocol: Document 01/07/22 11:45 [facility] (Rec: 01/08/22 17:02 [facility] [id number]) Aquatics Treatment Pool Entry/Exit Pool Entry/Exit Method Stairs Assistance Independent Water Walking [place] March Water Level Chest Level Level of Assistance Standby Assistance Comments UE drag Marching Water Level Chest Level Level of Assistance Standby Assistance,Verbal Cues Comments UE drag Backwards Water Level Chest Level Level of Assistance Standby Assistance Comments UE drag Forwards Water Level Chest Level Level of Assistance Standby Assistance,Verbal Cues Comments UE drag Lower Extremity Exercises SLS Body Position Standing Water Level Waist Level Reps/Duration 4 x B max time 40 sec LLE, 30 sec RLE Comments opposite foot on medial aspect of loaiza 4 way hip Details min UE support Body Position Standing Water Level Waist Level Reps/Duration 10 x2 ea B Comments cues for posture Lower Extremity Stretches DKTC/SKTC Details SKTC Body Position Standing Water Level Chest Level Reps/Duration 2x30 quads, HS, hip flexors Equipment Large Noodle Reps/Duration 2x30 Spinal Exercises wall squat DLS Reps/Duration 6 min Comments Core engagement against wall, emily and unil UE mvmts for challenge UE pull downs Details front pull down Water Level Chest Level Equipment long barbell Reps/Duration 10x2 Comments cues for core activation [place] Activities Other Activities traction Equipment blue float, 5# wts, lg noodle PT-OP-T Assessment and Plan Start: 07/15/21 16:54 Freq: Status: Active Protocol: Document 01/07/22 11:45 [facility] (Rec: 01/08/22 17:02 [facility] [id number]) Physical Therapy Assessment Impairments Impairments Activity Tolerance,Balance, Functional Activities, Functional Mobility,Gait,Pain, Posture,ROM,Soft Tissue Mobility,Strength,Transfers Goals weakness Impairment LE and core muscle weakness limiting function Maternal Fetal Physician Goal (LTG) Patient will test at least 4+/ 5 all LE and trunk muscle groups to allow him to return to prior level of function. Will be independent and compliant with progressive HEP and aquatic exercise program. balance Impairment diminished balance scoring in moderate fall risk category Maternal Fetal Physician Goal (LTG) Improve balance with patient testing in low fall risk category on Colon Balance test and TUG test for improved safety and decreased risk of injury LTG Duration 03/09/22 walk Impairment pt uses 4ww for all gait Short Term Goal (STG) pt will be able to walk with 2 hiking poles within home distance 10/13/21: goal met Maternal Fetal Physician Goal (LTG) pt will be able to walk with 2 hiking poles at home and community 10/13/21: goal met at home, still mostly uses 4WW in community 01/07/22: patient able to ambulate with trekking poles but for only short distance community ambulation and with exess forward trunk flexion. Updated goal: Patient will be able to ambulate safely in the home without assistive device and for 15 minutes outdoors/ community with improved postural alignment hip angle Impairment pt has a 28 degrees hip flexion angle in standing Short Term Goal (STG) pt will show improved lumbar mobility and tolerance for WB activities will be able to stand with <25 degrees hip flexion. 10/13/21: goal met Maternal Fetal Physician Goal (LTG) pt will show improved lumbar mobility and tolerance for WB activities who will be able to stand with <25 degrees hip flexion. 01/07/22: goal progress LTG Duration 03/09/22 Owestry Impairment pt scores 56 on Oswestry disability index score Short Term Goal (STG) pt will show improved overall mobility and strength by scoring <50 on Owestry 12/29/21: goal achieved. STG Duration goal met Skilled Nursing Goal (LTG) Patient will score less then 40 on Oswestry disability index score as measure of decreased pain and improved activity tolerance 12/29/21: goal progress LTG Duration 03/09/22 Assessment Summary Assessment Patient having more difficulty with back pain recently, possibly due to trying to resume some swimming with potential for excess lumbar extension with prone swim. Today's session consisted of all vertical exercises with emphasis on core stabilization and ended with deep water traction. In terms of strength and mobility skills for aquatic exercise patient instructed to increase intensity as long as able to do without increase in pain or compromising postural alignment. Also discussed PT recommendation for transitioning some PT appointments to the clinic; patient somewhat reluctant due to prior poor tolerance with land-based PT due to increase in back pain; PT discussed ability to make modifications and treat for pain, and need to progress land-based activity within patient tolerance and he was in agreement. Recommend continued skilled PT in both clinic and aquatic settings. He is at moderate risk for falls Physical Therapy Plan Frequency and Duration Frequency of Treatment 2x/Week Duration of Treatment 8 wks Plan of Care Start Date 01/05/22 Plan of Care End Date 03/09/22 Therapeutic Interventions Therapeutic Interventions Aquatic Therapy,Balance Training,Gait Training,Home Exercise Program,Joint Mobilizations,Manual Therapy, Neuromuscular Re-education, Patient/Caregiver Education, Self-Care/Home Management,Soft Tissue Mobilization,Taping, Therapeutic Activities, Therapeutic Exercises Modalities Cold Pack/Ice Massage,Electric Stimulation,Hot Packs, Infrared Therapy,Paraffin Bath ,Traction- Mechanical, Ultrasound Next Visit Focus/Plan Next Note Type Treatment Note Next Visit Plan Continue progression of aquatic exercise program, transition to land-based PT as tolerated.
--- NOTE | 2022-01-07 17:03 | PT.OPPOC ---
Physical, Occupational & Speech Therapy At [facility] Current Diagnoses Spondylosis without myelopathy or radiculopathy, lumbar region (01/07/22) Visit Care Team Role Provider Type Benjamin Aguilera DO Primary Care Provider Physician Specialty: Family Practice Address: [address] [place] [address], [id number] Email: [email or web address] Robin Lee MD Family Provider Physician Specialty: Internal Medicine Address: [address] [place] [address], [address] Email: [email or web address] AMADA Knox Attending Provider Non-Staff Referring Provider Specialty: Medical Address: [address] [place] [address], [address], [facility] Email: Plan Of Care PT-OP-T Assessment and Plan Start: 07/15/21 16:54 Freq: Status: Active Protocol: Document 01/07/22 11:45 SAK (Rec: 01/08/22 17:02 [facility] [id number]) Physical Therapy Assessment Impairments Impairments Activity Tolerance,Balance, Functional Activities, Functional Mobility,Gait,Pain, Posture,ROM,Soft Tissue Mobility,Strength,Transfers Goals weakness Impairment LE and core muscle weakness limiting function Snf Goal (LTG) Patient will test at least 4+/ 5 all LE and trunk muscle groups to allow him to return to prior level of function. Will be independent and compliant with progressive HEP and aquatic exercise program. balance Impairment diminished balance scoring in moderate fall risk category Snf Goal (LTG) Improve balance with patient testing in low fall risk category on Colon Balance test and TUG test for improved safety and decreased risk of injury LTG Duration 03/09/22 walk Impairment pt uses 4ww for all gait Short Term Goal (STG) pt will be able to walk with 2 hiking poles within home distance 10/13/21: goal met Paper Cone Grader Goal (LTG) pt will be able to walk with 2 hiking poles at home and community 10/13/21: goal met at home, still mostly uses 4WW in community 01/07/22: patient able to ambulate with trekking poles but for only short distance community ambulation and with exess forward trunk flexion. Updated goal: Patient will be able to ambulate safely in the home without assistive device and for 15 minutes outdoors/ community with improved postural alignment hip angle Impairment pt has a 28 degrees hip flexion angle in standing Short Term Goal (STG) pt will show improved lumbar mobility and tolerance for WB activities will be able to stand with <25 degrees hip flexion. 10/13/21: goal met Paper Cone Grader Goal (LTG) pt will show improved lumbar mobility and tolerance for WB activities who will be able to stand with <25 degrees hip flexion. 01/07/22: goal progress LTG Duration 03/09/22 Owestry Impairment pt scores 56 on Oswestry disability index score Short Term Goal (STG) pt will show improved overall mobility and strength by scoring <50 on Owestry 12/29/21: goal achieved. STG Duration goal met Snf Goal (LTG) Patient will score less then 40 on Oswestry disability index score as measure of decreased pain and improved activity tolerance 12/29/21: goal progress LTG Duration 03/09/22 Assessment Summary Assessment Patient having more difficulty with back pain recently, possibly due to trying to resume some swimming with potential for excess lumbar extension with prone swim. Today's session consisted of all vertical exercises with emphasis on core stabilization and ended with deep water traction. In terms of strength and mobility skills for aquatic exercise patient instructed to increase intensity as long as able to do without increase in pain or compromising postural alignment. Also discussed PT recommendation for transitioning some PT appointments to the clinic; patient somewhat reluctant due to prior poor tolerance with land-based PT due to increase in back pain; PT discussed ability to make modifications and treat for pain, and need to progress land-based activity within patient tolerance and he was in agreement. Recommend continued skilled PT in both clinic and aquatic settings. He is at moderate risk for falls Physical Therapy Plan Frequency and Duration Frequency of Treatment 2x/Week Duration of Treatment 8 wks Plan of Care Start Date 01/05/22 Plan of Care End Date 03/09/22 Therapeutic Interventions Therapeutic Interventions Aquatic Therapy,Balance Training,Gait Training,Home Exercise Program,Joint Mobilizations,Manual Therapy, Neuromuscular Re-education, Patient/Caregiver Education, Self-Care/Home Management,Soft Tissue Mobilization,Taping, Therapeutic Activities, Therapeutic Exercises Modalities Cold Pack/Ice Massage,Electric Stimulation,Hot Packs, Infrared Therapy,Paraffin Bath ,Traction- Mechanical, Ultrasound Next Visit Focus/Plan Next Note Type Treatment Note Next Visit Plan Continue progression of aquatic exercise program, transition to land-based PT as tolerated. Plan of Care Dates Plan of Care Start Date 01/05/22 Plan of Care End Date 03/09/22 Electronically Signed by: Kateryna Shaffer, PT 01/08/22 [id number] If you are in agreement with this Plan of Care, please return a signed and dated copy. I have reviewed this Plan of Care and certify that the skilled therapy services above are required to meet the patient?s needs. Physician Signature Date Printed Name and Credentials Clinical Instructor Signature Printed Name and Credentials
--- NOTE | 2022-01-14 15:06 | PT.OTN ---
Current Diagnoses Spondylosis without myelopathy or radiculopathy, lumbar region (01/14/22) Physical Therapy Treatment Note PT-OP-A Visit Information Start: 07/15/21 16:54 Freq: Status: Active Protocol: Document 01/14/22 14:46 BRET (Rec: 01/14/22 15:06 [id number]) Out-Patient Physical Therapy Visit Information Visit Information Visit Type Aquatic Treatment Note Visit Start Time 11:45 Visit Stop Time 12:30 Total Visit Minutes 45 Visit Number [id number] Number of EXPLOSIVE OPERATOR BOMB Visits 1 PT-OP-B Current Condition Start: 07/15/21 16:54 Freq: Status: Active Protocol: Document 07/15/21 16:54 HH (Rec: 07/15/21 17:27 HH [id number]) Current Condition History of Current Condition Onset Date 2019 Current Complaints chronic back pain, weakness, difficulty in walking History of Current Condition Toribio is a 71 yo returning patient here for his debilitating chronic LBP. He had L4-L5 microdisectomy last year for his L4L5 ruptured disc. He then had significant loss of mobility and strength who now uses 4WW for all mobility. He bascially cannot stand straight and lay in prone position. He walks with a flexed posture to alleviate his pain. He saw his surgeon 2 months ago and did not recommend further back surgery. He had a course of PT with me but only limited progress (able to use hiking sticks to walk at one point). He has been going to the pool for water walking, mobility exercises and has been helpful for his strnegth and balance. He would like to do PT again to participate both land and aquative therapy. Personal Factors Other Personal Factors That May Effect overweight Therapy/Recovery previous heart attack CABG placement chronic back pain PT-OP-C Subjective Start: 07/15/21 16:54 Freq: Status: Active Protocol: Document 01/14/22 14:46 BRET (Rec: 01/14/22 15:06 BRET [id number]) OP-PT Subjective Patient Comments Patient Comments Pt states he has been feeling good and believes has gained some spinal extension in walking. He arrived early and began walking exercises including 2 laps with his personal swim fins PT-OP-D Balance Start: 07/15/21 16:54 Freq: Status: Active Protocol: Document 07/15/21 16:54 HH (Rec: 07/15/21 17:27 [id number]) Balance Tests Single Limb Standing Single Limb- Right unable Single Limb- Left unable PT-OP-G Mobility & Gait Start: 07/15/21 16:54 Freq: Status: Active Protocol: Document 07/15/21 16:54 HH (Rec: 07/15/21 17:27 [id number]) OP Mobility Evaluation Bed Mobility Supine to and from Sit log roll method OP Gait Assessment Gait Gait Assistance Required: Independent Assistive Devices Assistive Device 4 Wheeled Walker Gait Deviations General Gait Pattern Flexed Trunk Factors Limiting Gait Function Factors Limiting Gait Function Limited Range of Motion,Pain Comments Gait Comments pt walks wth a significant flexed posture with a hyperextended lumbar spine. He often has to stop to keep his walker close to his body. PT-OP-H Neuro Start: 07/15/21 16:54 Freq: Status: Active Protocol: Document 07/15/21 16:54 HH (Rec: 07/15/21 17:27 [id number]) Sensation Evaluation Gross Sensation Gross Sensation WNL Deep Tendon Reflex & Clonus Assessment Deep Tendon Reflex Bilateral Achilles Deep Tendon Reflex 2+ Normal Right Patellar Deep Tendon Reflex 2+ Normal Left Patellar Deep Tendon Reflex 0 Absent PT-OP-J Posture/Palpation/Skin Start: 07/15/21 16:54 Freq: Status: Active Protocol: Document 07/15/21 16:54 HH (Rec: 07/15/21 17:27 [id number]) Posture Evaluation Position Standing T-Spine Posture Increased Kyphosis L-Spine Posture Increased Lordosis,Flexed Hip Posture (L) Flexed,(R) Flexed Knee Posture (L) Excess Flexion,(R) Excess Flexion PT-OP-K Range of Motion Start: 07/15/21 16:54 Freq: Status: Active Protocol: Document 07/15/21 16:54 HH (Rec: 07/15/21 17:27 [id number]) Lumbar Spine Range of Motion Lumbar Spine Active Degrees Comments hip angle in standing (normal posture) = 28 degrees in flexion hip angle in standing ( extended posture) = 25 degrees in flexion, pain at low back. PT-OP-L Special Tests Start: 07/15/21 16:54 Freq: Status: Active Protocol: Document 07/15/21 16:54 HH (Rec: 07/15/21 17:27 [id number]) Special Tests Lumbar Spine Special Tests Slump Test Results -ve Straight Leg Raise Test Results -ve Comments no rad pain but extension pain with SLR on R. PT-OP-M Strength Start: 07/15/21 16:54 Freq: Status: Active Protocol: Document 07/15/21 16:54 HH (Rec: 07/15/21 17:27 [id number]) Hip Strength Hip Manual Muscle Testing Right Flexion (L2) 3+ Fair+ Extension (S1) 4- Good- Abduction 4- Good- Adduction 4- Good- Comments low back pain with SLR flexion Left Flexion (L2) 4- Good- Extension (S1) 4- Good- Abduction 4+ Good+ Adduction 4+ Good+ Knee Strength Knee Manual Muscle Testing Right Flexion (S2) 5 Normal Extension (L3) 5 Normal Left Flexion (S2) 5 Normal Extension (L3) 5 Normal Ankle/Foot Strength Ankle and Foot Manual Muscle Testing Right Dorsiflexion (L4) 5 Normal Plantarflexion (S1) 5 Normal Left Dorsiflexion (L4) 5 Normal Plantarflexion (S1) 5 Normal PT-OP-Q Treatments Start: 07/15/21 16:54 Freq: Status: Active Protocol: Document 07/15/21 16:54 (Rec: 07/15/21 17:27 [id number]) Therapeutic Exercises Supine Exercises knee to chest Supine Exercise Name unilateral Side bilateral Reps/Minutes 20s x 5 Comments for HEP, rpeorts of pulling sensation on lumbar PT-OP-S Aquatic Treatment Start: 07/15/21 16:54 Freq: Status: Active Protocol: Document 01/14/22 14:46 BRET (Rec: 01/14/22 15:06 BRET [id number]) Aquatics Treatment Pool Entry/Exit Pool Entry/Exit Method Stairs Assistance Independent Water Walking circumduction to tandem Water Level Chest Level Walking Equipment Ankle Floats Level of Assistance Standby Assistance stop start jogging Water Level Chest Level Walking Equipment Resistance Fins Level of Assistance Verbal Cues Comments EXPLOSIVE OPERATOR BOMB calling out stop start direction changes Lunge Walk Water Level Waist Level Walking Equipment Ankle Floats Level of Assistance Standby Assistance [place] Water Level Chest Level Level of Assistance Standby Assistance Marching Water Level Chest Level Walking Equipment Ankle Floats Level of Assistance Standby Assistance,Verbal Cues Sideways Water Level Chest Level Walking Equipment Ankle Floats Comments lg step over Backwards Water Level Chest Level Level of Assistance Standby Assistance Forwards Water Level Chest Level Walking Equipment swim fins Lower Extremity Exercises deep kicks Details braced on steps Body Position Prone Water Level Waist Level Equipment Resistance Fins Reps/Duration 3x 30 kick back Details at wall Body Position Standing Water Level Waist Level Equipment lg noodle Reps/Duration 10x B Comments EXPLOSIVE OPERATOR BOMB bracing noodle in front d/ t pt falling forward SLS Body Position Standing Water Level Waist Level Reps/Duration 4 x B max time 38 sec LLE, 30 sec RLE Comments opposite foot on medial aspect of loaiza 4 way hip Details min UE support Body Position Standing Water Level Waist Level Equipment Resistance Fins Reps/Duration 10 x2 ea B Comments cues for posture and increased effort Lower Extremity Stretches quads, HS, hip flexors Equipment Large Noodle Reps/Duration 2x30 Spinal Exercises UE pull downs Details front pull down Water Level Chest Level Equipment long barbell Reps/Duration 10x2 Comments cues for core activation Balance noodle stand Equipment lg noodle Reps/Duration 3' Comments UE support on wall [place] Activities Other Activities traction Equipment blue float, 5# wts, Duration 8 min PT-OP-T Assessment and Plan Start: 07/15/21 16:54 Freq: Status: Active Protocol: Document 01/14/22 14:46 BRET (Rec: 01/14/22 15:06 BRET [id number]) Physical Therapy Assessment Impairments Impairments Activity Tolerance,Balance, Functional Activities, Functional Mobility,Gait,Pain, Posture,ROM,Soft Tissue Mobility,Strength,Transfers Goals weakness Impairment LE and core muscle weakness limiting function Half-Way Goal (LTG) Patient will test at least 4+/ 5 all LE and trunk muscle groups to allow him to return to prior level of function. Will be independent and compliant with progressive HEP and aquatic exercise program. balance Impairment diminished balance scoring in moderate fall risk category Cougar Hunter Goal (LTG) Improve balance with patient testing in low fall risk category on Colon Balance test and TUG test for improved safety and decreased risk of injury LTG Duration 03/09/22 walk Impairment pt uses 4ww for all gait Short Term Goal (STG) pt will be able to walk with 2 hiking poles within home distance 10/13/21: goal met Half-Way Goal (LTG) pt will be able to walk with 2 hiking poles at home and community 10/13/21: goal met at home, still mostly uses 4WW in community 01/07/22: patient able to ambulate with trekking poles but for only short distance community ambulation and with exess forward trunk flexion. Updated goal: Patient will be able to ambulate safely in the home without assistive device and for 15 minutes outdoors/ community with improved postural alignment hip angle Impairment pt has a 28 degrees hip flexion angle in standing Short Term Goal (STG) pt will show improved lumbar mobility and tolerance for WB activities will be able to stand with <25 degrees hip flexion. 10/13/21: goal met Half-Way Goal (LTG) pt will show improved lumbar mobility and tolerance for WB activities who will be able to stand with <25 degrees hip flexion. 01/07/22: goal progress LTG Duration 03/09/22 Owestry Impairment pt scores 56 on Oswestry disability index score Short Term Goal (STG) pt will show improved overall mobility and strength by scoring <50 on Owestry 12/29/21: goal achieved. STG Duration goal met Half-Way Goal (LTG) Patient will score less then 40 on Oswestry disability index score as measure of decreased pain and improved activity tolerance 12/29/21: goal progress LTG Duration 03/09/22 Assessment Summary Assessment Pt tolerated increase in effort with ankle fins. He is going to buy a set for his personal use when he goes to the pool on his own. Hip flexor stretch very effective with notalbe bilateral improvement in extension. Pt did not swim today other than several 30 second intervals of deep kicks. Continue to increase effort and encourage beginning land therapy sessions. Physical Therapy Plan Frequency and Duration Frequency of Treatment 2x/Week Duration of Treatment 8 wks Plan of Care Start Date 01/05/22 Plan of Care End Date 03/09/22 Therapeutic Interventions Therapeutic Interventions Aquatic Therapy,Balance Training,Gait Training,Home Exercise Program,Joint Mobilizations,Manual Therapy, Neuromuscular Re-education, Patient/Caregiver Education, Self-Care/Home Management,Soft Tissue Mobilization,Taping, Therapeutic Activities, Therapeutic Exercises Modalities Cold Pack/Ice Massage,Electric Stimulation,Hot Packs, Infrared Therapy,Paraffin Bath ,Traction- Mechanical, Ultrasound Next Visit Focus/Plan Next Note Type Treatment Note Next Visit Plan Continue progression of aquatic exercise program, transition to land-based PT as tolerated.
--- NOTE | 2022-01-21 14:47 | PT.OTN ---
Current Diagnoses Spondylosis without myelopathy or radiculopathy, lumbar region (01/21/22) Physical Therapy Treatment Note PT-OP-A Visit Information Start: 07/15/21 16:54 Freq: Status: Active Protocol: Document 01/21/22 14:29 BRET (Rec: 01/21/22 14:47 [id number]) Out-Patient Physical Therapy Visit Information Visit Information Visit Type Aquatic Treatment Note Visit Start Time 11:45 Visit Stop Time 12:30 Total Visit Minutes 45 Visit Number 15 Number of DISTRIBUTION MANAGER Visits 2 PT-OP-B Current Condition Start: 07/15/21 16:54 Freq: Status: Active Protocol: Document 07/15/21 16:54 HH (Rec: 07/15/21 17:27 HH [id number]) Current Condition History of Current Condition Onset Date 2019 Current Complaints chronic back pain, weakness, difficulty in walking History of Current Condition Toribio is a 71 yo returning patient here for his debilitating chronic LBP. He had L4-L5 microdisectomy last year for his L4L5 ruptured disc. He then had significant loss of mobility and strength who now uses 4WW for all mobility. He bascially cannot stand straight and lay in prone position. He walks with a flexed posture to alleviate his pain. He saw his surgeon 2 months ago and did not recommend further back surgery. He had a course of PT with me but only limited progress (able to use hiking sticks to walk at one point). He has been going to the pool for water walking, mobility exercises and has been helpful for his strnegth and balance. He would like to do PT again to participate both land and aquative therapy. Personal Factors Other Personal Factors That May Effect overweight Therapy/Recovery previous heart attack CABG placement chronic back pain PT-OP-C Subjective Start: 07/15/21 16:54 Freq: Status: Active Protocol: Document 01/21/22 14:29 BRET (Rec: 01/21/22 14:47 [id number]) OP-PT Subjective Patient Comments Patient Comments Pt states he has an appointment with a new doctor this afternoon. Also states he has been feeling stronger. He arrived early this session and began walking. PT-OP-D Balance Start: 07/15/21 16:54 Freq: Status: Active Protocol: Document 07/15/21 16:54 HH (Rec: 07/15/21 17:27 [id number]) Balance Tests Single Limb Standing Single Limb- Right unable Single Limb- Left unable PT-OP-G Mobility & Gait Start: 07/15/21 16:54 Freq: Status: Active Protocol: Document 07/15/21 16:54 (Rec: 07/15/21 17:27 [id number]) OP Mobility Evaluation Bed Mobility Supine to and from Sit log roll method OP Gait Assessment Gait Gait Assistance Required: Independent Assistive Devices Assistive Device 4 Wheeled Walker Gait Deviations General Gait Pattern Flexed Trunk Factors Limiting Gait Function Factors Limiting Gait Function Limited Range of Motion,Pain Comments Gait Comments pt walks wth a significant flexed posture with a hyperextended lumbar spine. He often has to stop to keep his walker close to his body. PT-OP-H Neuro Start: 07/15/21 16:54 Freq: Status: Active Protocol: Document 07/15/21 16:54 (Rec: 07/15/21 17:27 [id number]) Sensation Evaluation Gross Sensation Gross Sensation WNL Deep Tendon Reflex & Clonus Assessment Deep Tendon Reflex Bilateral Achilles Deep Tendon Reflex 2+ Normal Right Patellar Deep Tendon Reflex 2+ Normal Left Patellar Deep Tendon Reflex 0 Absent PT-OP-J Posture/Palpation/Skin Start: 07/15/21 16:54 Freq: Status: Active Protocol: Document 07/15/21 16:54 (Rec: 07/15/21 17:27 [id number]) Posture Evaluation Position Standing T-Spine Posture Increased Kyphosis L-Spine Posture Increased Lordosis,Flexed Hip Posture (L) Flexed,(R) Flexed Knee Posture (L) Excess Flexion,(R) Excess Flexion PT-OP-K Range of Motion Start: 07/15/21 16:54 Freq: Status: Active Protocol: Document 07/15/21 16:54 (Rec: 07/15/21 17:27 [id number]) Lumbar Spine Range of Motion Lumbar Spine Active Degrees Comments hip angle in standing (normal posture) = 28 degrees in flexion hip angle in standing ( extended posture) = 25 degrees in flexion, pain at low back. PT-OP-L Special Tests Start: 07/15/21 16:54 Freq: Status: Active Protocol: Document 07/15/21 16:54 (Rec: 07/15/21 17:27 [id number]) Special Tests Lumbar Spine Special Tests Slump Test Results -ve Straight Leg Raise Test Results -ve Comments no rad pain but extension pain with SLR on R. PT-OP-M Strength Start: 07/15/21 16:54 Freq: Status: Active Protocol: Document 07/15/21 16:54 HH (Rec: 07/15/21 17:27 [id number]) Hip Strength Hip Manual Muscle Testing Right Flexion (L2) 3+ Fair+ Extension (S1) 4- Good- Abduction 4- Good- Adduction 4- Good- Comments low back pain with SLR flexion Left Flexion (L2) 4- Good- Extension (S1) 4- Good- Abduction 4+ Good+ Adduction 4+ Good+ Knee Strength Knee Manual Muscle Testing Right Flexion (S2) 5 Normal Extension (L3) 5 Normal Left Flexion (S2) 5 Normal Extension (L3) 5 Normal Ankle/Foot Strength Ankle and Foot Manual Muscle Testing Right Dorsiflexion (L4) 5 Normal Plantarflexion (S1) 5 Normal Left Dorsiflexion (L4) 5 Normal Plantarflexion (S1) 5 Normal PT-OP-Q Treatments Start: 07/15/21 16:54 Freq: Status: Active Protocol: Document 07/15/21 16:54 (Rec: 07/15/21 17:27 [id number]) Therapeutic Exercises Supine Exercises knee to chest Supine Exercise Name unilateral Side bilateral Reps/Minutes 20s x 5 Comments for HEP, rpeorts of pulling sensation on lumbar PT-OP-S Aquatic Treatment Start: 07/15/21 16:54 Freq: Status: Active Protocol: Document 01/21/22 14:29 BRET (Rec: 01/21/22 14:47 LJ [id number]) Aquatics Treatment Pool Entry/Exit Pool Entry/Exit Method Stairs Assistance Independent Water Walking stop start jogging Water Level Chest Level Walking Equipment Ankle Floats Level of Assistance Verbal Cues Comments during stop-quick jog stop/start with direction change Water Level Chest Level Walking Equipment Ankle Floats Comments 2 min Marching Water Level Chest Level Walking Equipment Ankle Floats Sideways Water Level Chest Level Walking Equipment Ankle Floats Comments lg step over Backwards Water Level Chest Level Level of Assistance Standby Assistance Forwards Water Level Chest Level Walking Equipment Ankle Floats Lower Extremity Exercises hip ABD Body Position Standing Water Level Waist Level Equipment stretch cords Reps/Duration 2x 8 B kick back Details facing wall Body Position Standing Water Level Waist Level Equipment stretch cords Reps/Duration 2x 8 B Lower Extremity Stretches DKTC/SKTC Details SKTC Body Position Standing Water Level Chest Level Reps/Duration 2x30 quads, HS, hip flexors Equipment Large Noodle Reps/Duration 2x30 Balance step over boxes Reps/Duration 5x step up on boxes Details forward and side Water Level Chest Level Reps/Duration 10 B [place] Activities Other Activities traction Equipment blue float, 5# wts, Duration 10 min Swim Strokes Backstroke Equipment Fins Laps/Duration 10m x 2 Comments arms at sides Other water recovery Details supine to stand Reps/Duration 4x PT-OP-T Assessment and Plan Start: 07/15/21 16:54 Freq: Status: Active Protocol: Document 01/21/22 14:29 BRET (Rec: 01/21/22 14:47 BRET [id number]) Physical Therapy Assessment Rehab Potential Rehabilitation Potential Fair Evaluation Complexity Number of Personal Factors/Comorbidities 3 or More Number of Body Systems Impaired 3 Clinical Presentation at Evaluation Stable Impairments Impairments Activity Tolerance,Balance, Functional Activities, Functional Mobility,Gait,Pain, Posture,ROM,Soft Tissue Mobility,Strength,Transfers Goals weakness Impairment LE and core muscle weakness limiting function Detention Goal (LTG) Patient will test at least 4+/ 5 all LE and trunk muscle groups to allow him to return to prior level of function. Will be independent and compliant with progressive HEP and aquatic exercise program. balance Impairment diminished balance scoring in moderate fall risk category Detention Goal (LTG) Improve balance with patient testing in low fall risk category on Colon Balance test and TUG test for improved safety and decreased risk of injury LTG Duration 03/09/22 walk Impairment pt uses 4ww for all gait Short Term Goal (STG) pt will be able to walk with 2 hiking poles within home distance 10/13/21: goal met Detention Goal (LTG) pt will be able to walk with 2 hiking poles at home and community 10/13/21: goal met at home, still mostly uses 4WW in community 01/07/22: patient able to ambulate with trekking poles but for only short distance community ambulation and with exess forward trunk flexion. Updated goal: Patient will be able to ambulate safely in the home without assistive device and for 15 minutes outdoors/ community with improved postural alignment hip angle Impairment pt has a 28 degrees hip flexion angle in standing Short Term Goal (STG) pt will show improved lumbar mobility and tolerance for WB activities will be able to stand with <25 degrees hip flexion. 10/13/21: goal met Air Traffic Coordinator Goal (LTG) pt will show improved lumbar mobility and tolerance for WB activities who will be able to stand with <25 degrees hip flexion. 01/07/22: goal progress LTG Duration 03/09/22 Owestry Impairment pt scores 56 on Oswestry disability index score Short Term Goal (STG) pt will show improved overall mobility and strength by scoring <50 on Owestry 12/29/21: goal achieved. STG Duration goal met Detention Goal (LTG) Patient will score less then 40 on Oswestry disability index score as measure of decreased pain and improved activity tolerance 12/29/21: goal progress LTG Duration 03/09/22 Progress Towards Goals Progress Towards Goals Slow Progress due to Activity Tolerance Assessment Summary Assessment Pt improving with gait and balance activities. He did not experience back pain with stretch cord exercises but, when attempting prone swimming , his back began to hurt. Advised to not swim prone and limit swimming to supine flutter kicking for horiaontal exercises. Physical Therapy Plan Frequency and Duration Frequency of Treatment 2x/Week Duration of Treatment 8 wks Plan of Care Start Date 01/05/22 Plan of Care End Date 03/09/22 Therapeutic Interventions Therapeutic Interventions Aquatic Therapy,Balance Training,Gait Training,Home Exercise Program,Joint Mobilizations,Manual Therapy, Neuromuscular Re-education, Patient/Caregiver Education, Self-Care/Home Management,Soft Tissue Mobilization,Taping, Therapeutic Activities, Therapeutic Exercises Modalities Cold Pack/Ice Massage,Electric Stimulation,Hot Packs, Infrared Therapy,Paraffin Bath ,Traction- Mechanical, Ultrasound Next Visit Focus/Plan Next Note Type Treatment Note Next Visit Plan Continue progression of aquatic exercise program, transition to land-based PT as tolerated.
--- NOTE | 2022-02-04 15:00 | PT.OTN ---
Current Diagnoses Spondylosis without myelopathy or radiculopathy, lumbar region (02/04/22) Physical Therapy Treatment Note PT-OP-A Visit Information Start: 07/15/21 16:54 Freq: Status: Active Protocol: Document 02/04/22 14:43 BRET (Rec: 02/04/22 14:59 LJ [id number]) Out-Patient Physical Therapy Visit Information Visit Information Visit Type Aquatic Treatment Note Visit Start Time 11:45 Visit Stop Time 12:30 Total Visit Minutes 45 Visit Number Number of OR NURSE MANAGER Visits 3 PT-OP-B Current Condition Start: 07/15/21 16:54 Freq: Status: Active Protocol: Document 07/15/21 16:54 HH (Rec: 07/15/21 17:27 HH [id number]) Current Condition History of Current Condition Onset Date 2019 Current Complaints chronic back pain, weakness, difficulty in walking History of Current Condition Toribio is a 71 yo returning patient here for his debilitating chronic LBP. He had L4-L5 microdisectomy last year for his L4L5 ruptured disc. He then had significant loss of mobility and strength who now uses 4WW for all mobility. He bascially cannot stand straight and lay in prone position. He walks with a flexed posture to alleviate his pain. He saw his surgeon 2 months ago and did not recommend further back surgery. He had a course of PT with me but only limited progress (able to use hiking sticks to walk at one point). He has been going to the pool for water walking, mobility exercises and has been helpful for his strnegth and balance. He would like to do PT again to participate both land and aquative therapy. Personal Factors Other Personal Factors That May Effect overweight Therapy/Recovery previous heart attack CABG placement chronic back pain PT-OP-C Subjective Start: 07/15/21 16:54 Freq: Status: Active Protocol: Document 02/04/22 14:43 BRET (Rec: 02/04/22 14:59 LJ [id number]) OP-PT Subjective Patient Comments Patient Comments Pt reports he did a lot of walking outside yesterday and his back was sore. States he is felling ok today. PT-OP-D Balance Start: 07/15/21 16:54 Freq: Status: Active Protocol: Document 07/15/21 16:54 HH (Rec: 07/15/21 17:27 HH [id number]) Balance Tests Single Limb Standing Single Limb- Right unable Single Limb- Left unable PT-OP-G Mobility & Gait Start: 07/15/21 16:54 Freq: Status: Active Protocol: Document 07/15/21 16:54 HH (Rec: 07/15/21 17:27 [id number]) OP Mobility Evaluation Bed Mobility Supine to and from Sit log roll method OP Gait Assessment Gait Gait Assistance Required: Independent Assistive Devices Assistive Device 4 Wheeled Walker Gait Deviations General Gait Pattern Flexed Trunk Factors Limiting Gait Function Factors Limiting Gait Function Limited Range of Motion,Pain Comments Gait Comments pt walks wth a significant flexed posture with a hyperextended lumbar spine. He often has to stop to keep his walker close to his body. PT-OP-H Neuro Start: 07/15/21 16:54 Freq: Status: Active Protocol: Document 07/15/21 16:54 HH (Rec: 07/15/21 17:27 [id number]) Sensation Evaluation Gross Sensation Gross Sensation WNL Deep Tendon Reflex & Clonus Assessment Deep Tendon Reflex Bilateral Achilles Deep Tendon Reflex 2+ Normal Right Patellar Deep Tendon Reflex 2+ Normal Left Patellar Deep Tendon Reflex 0 Absent PT-OP-J Posture/Palpation/Skin Start: 07/15/21 16:54 Freq: Status: Active Protocol: Document 07/15/21 16:54 (Rec: 07/15/21 17:27 [id number]) Posture Evaluation Position Standing T-Spine Posture Increased Kyphosis L-Spine Posture Increased Lordosis,Flexed Hip Posture (L) Flexed,(R) Flexed Knee Posture (L) Excess Flexion,(R) Excess Flexion PT-OP-K Range of Motion Start: 07/15/21 16:54 Freq: Status: Active Protocol: Document 07/15/21 16:54 HH (Rec: 07/15/21 17:27 [id number]) Lumbar Spine Range of Motion Lumbar Spine Active Degrees Comments hip angle in standing (normal posture) = 28 degrees in flexion hip angle in standing ( extended posture) = 25 degrees in flexion, pain at low back. PT-OP-L Special Tests Start: 07/15/21 16:54 Freq: Status: Active Protocol: Document 07/15/21 16:54 HH (Rec: 07/15/21 17:27 [id number]) Special Tests Lumbar Spine Special Tests Slump Test Results -ve Straight Leg Raise Test Results -ve Comments no rad pain but extension pain with SLR on R. PT-OP-M Strength Start: 07/15/21 16:54 Freq: Status: Active Protocol: Document 07/15/21 16:54 HH (Rec: 07/15/21 17:27 [id number]) Hip Strength Hip Manual Muscle Testing Right Flexion (L2) 3+ Fair+ Extension (S1) 4- Good- Abduction 4- Good- Adduction 4- Good- Comments low back pain with SLR flexion Left Flexion (L2) 4- Good- Extension (S1) 4- Good- Abduction 4+ Good+ Adduction 4+ Good+ Knee Strength Knee Manual Muscle Testing Right Flexion (S2) 5 Normal Extension (L3) 5 Normal Left Flexion (S2) 5 Normal Extension (L3) 5 Normal Ankle/Foot Strength Ankle and Foot Manual Muscle Testing Right Dorsiflexion (L4) 5 Normal Plantarflexion (S1) 5 Normal Left Dorsiflexion (L4) 5 Normal Plantarflexion (S1) 5 Normal PT-OP-Q Treatments Start: 07/15/21 16:54 Freq: Status: Active Protocol: Document 07/15/21 16:54 (Rec: 07/15/21 17:27 [id number]) Therapeutic Exercises Supine Exercises knee to chest Supine Exercise Name unilateral Side bilateral Reps/Minutes 20s x 5 Comments for HEP, rpeorts of pulling sensation on lumbar PT-OP-S Aquatic Treatment Start: 07/15/21 16:54 Freq: Status: Active Protocol: Document 02/04/22 14:43 BRET (Rec: 02/04/22 14:59 LJ [id number]) Aquatics Treatment Pool Entry/Exit Pool Entry/Exit Method Stairs Assistance Independent Water Walking stop/start with direction change Water Level Chest Level Walking Equipment Ankle Floats Comments 2 min Lunge Walk Water Level Waist Level Walking Equipment Ankle Floats Level of Assistance Standby Assistance [place] March Water Level Chest Level Walking Equipment kickboard Level of Assistance Standby Assistance Comments pushing kickboard fwd and bck for resistance Marching Water Level Chest Level Walking Equipment Ankle Floats Comments pushing kickboard fwd and bck for resistance Sideways Water Level Chest Level Walking Equipment Ankle Floats Comments lg step over Backwards Water Level Chest Level Level of Assistance Standby Assistance Comments pushing kickboard fwd and bck for resistance Forwards Water Level Chest Level Walking Equipment Ankle Floats Comments pushing kickboard fwd and bck for resistance Lower Extremity Exercises hip ABD Body Position Standing Water Level Waist Level Equipment stretch cords Reps/Duration 2x 8 B kick back Details facing wall Body Position Standing Water Level Waist Level Equipment stretch cords Reps/Duration 2x 8 B SLS Body Position Standing Water Level Waist Level Comments opposite foot on posterior aspect of knee. HH for balance squats Body Position Standing Water Level Waist Level Reps/Duration 15 B Comments single leg Lower Extremity Stretches DKTC/SKTC Details SKTC Body Position Standing Water Level Chest Level Reps/Duration 2x30 quads, HS, hip flexors Equipment stairs and manual assist Reps/Duration 2x30 each Upper Extremity Exercises chest press Body Position Standing Water Level Waist Level Equipment cords Reps/Duration 15 Comments foot braced on wall rows Body Position Standing Water Level Chest Level Equipment cords Reps/Duration 30 flex/ext Body Position Standing Water Level Chest Level Equipment cords Reps/Duration 15 Spinal Exercises paloff press Body Position Standing Water Level Waist Level Equipment cords Reps/Duration 12 B Comments for glute strengthening and core stability trunk rotation Body Position Standing Water Level Chest Level Equipment cords Reps/Duration 15 B Comments emphasis core stabilization Balance step up on boxes Details forward and side Water Level Chest Level Reps/Duration 10 B [place] Activities Other Activities traction Equipment blue float, 5# wts, Duration 10 min PT-OP-T Assessment and Plan Start: 07/15/21 16:54 Freq: Status: Active Protocol: Document 02/04/22 14:43 BRET (Rec: 02/04/22 14:59 BRET [id number]) Physical Therapy Assessment Rehab Potential Rehabilitation Potential Fair Evaluation Complexity Number of Personal Factors/Comorbidities 3 or More Number of Body Systems Impaired 3 Clinical Presentation at Evaluation Stable Impairments Impairments Activity Tolerance,Balance, Functional Activities, Functional Mobility,Gait,Pain, Posture,ROM,Soft Tissue Mobility,Strength,Transfers Goals weakness Impairment LE and core muscle weakness limiting function Fdc Goal (LTG) Patient will test at least 4+/ 5 all LE and trunk muscle groups to allow him to return to prior level of function. Will be independent and compliant with progressive HEP and aquatic exercise program. balance Impairment diminished balance scoring in moderate fall risk category Fab[employer]ator Industrial Furnace Goal (LTG) Improve balance with patient testing in low fall risk category on Colon Balance test and TUG test for improved safety and decreased risk of injury LTG Duration 03/09/22 walk Impairment pt uses 4ww for all gait Short Term Goal (STG) pt will be able to walk with 2 hiking poles within home distance 10/13/21: goal met Fab[employer]ator [employer] Furnace Goal (LTG) pt will be able to walk with 2 hiking poles at home and community 10/13/21: goal met at home, still mostly uses 4WW in community 01/07/22: patient able to ambulate with trekking poles but for only short distance community ambulation and with exess forward trunk flexion. Updated goal: Patient will be able to ambulate safely in the home without assistive device and for 15 minutes outdoors/ community with improved postural alignment hip angle Impairment pt has a 28 degrees hip flexion angle in standing Short Term Goal (STG) pt will show improved lumbar mobility and tolerance for WB activities will be able to stand with <25 degrees hip flexion. 10/13/21: goal met Fdc Goal (LTG) pt will show improved lumbar mobility and tolerance for WB activities who will be able to stand with <25 degrees hip flexion. 01/07/22: goal progress LTG Duration 03/09/22 Owestry Impairment pt scores 56 on Oswestry disability index score Short Term Goal (STG) pt will show improved overall mobility and strength by scoring <50 on Owestry 12/29/21: goal achieved. STG Duration goal met Fabricator [employer] Furnace Goal (LTG) Patient will score less then 40 on Oswestry disability index score as measure of decreased pain and improved activity tolerance 12/29/21: goal progress LTG Duration 03/09/22 Progress Towards Goals Progress Towards Goals Slow Progress due to Activity Tolerance Assessment Summary Assessment Pt continues to improve with balance activities in walking with ankle floats however, SLS standing remains challenging even in chest deep water when not holding onto wall. No c/o back pain this session. He arrives early and begins to water walk which shows increase in tolerance for activity. Physical Therapy Plan Frequency and Duration Frequency of Treatment 2x/Week Duration of Treatment 8 wks Plan of Care Start Date 01/05/22 Plan of Care End Date 03/09/22 Therapeutic Interventions Therapeutic Interventions Aquatic Therapy,Balance Training,Gait Training,Home Exercise Program,Joint Mobilizations,Manual Therapy, Neuromuscular Re-education, Patient/Caregiver Education, Self-Care/Home Management,Soft Tissue Mobilization,Taping, Therapeutic Activities, Therapeutic Exercises Modalities Cold Pack/Ice Massage,Electric Stimulation,Hot Packs, Infrared Therapy,Paraffin Bath ,Traction- Mechanical, Ultrasound Next Visit Focus/Plan Next Note Type Treatment Note Next Visit Plan Continue progression of aquatic exercise program, transition to land-based PT as tolerated.
--- NOTE | 2022-02-05 16:24 | PT.OTN ---
Current Diagnoses Spondylosis without myelopathy or radiculopathy, lumbar region (02/05/22) Physical Therapy Treatment Note PT-OP-A Visit Information Start: 07/15/21 16:54 Freq: Status: Active Protocol: Document 02/05/22 08:58 SAK (Rec: 02/05/22 09:48 [facility] [id number]) Out-Patient Physical Therapy Visit Information Visit Information Visit Type Treatment Note Visit Start Time 09:00 Visit Stop Time 09:55 Total Visit Minutes 55 Visit Number Number of [place] [employer] Visits 0 PT-OP-B Current Condition Start: 07/15/21 16:54 Freq: Status: Active Protocol: Document 07/15/21 16:54 HH (Rec: 07/15/21 17:27 HH [id number]) Current Condition History of Current Condition Onset Date 2019 Current Complaints chronic back pain, weakness, difficulty in walking History of Current Condition Toribio is a 71 yo returning patient here for his debilitating chronic LBP. He had L4-L5 microdisectomy last year for his L4L5 ruptured disc. He then had significant loss of mobility and strength who now uses 4WW for all mobility. He bascially cannot stand straight and lay in prone position. He walks with a flexed posture to alleviate his pain. He saw his surgeon 2 months ago and did not recommend further back surgery. He had a course of PT with me but only limited progress (able to use hiking sticks to walk at one point). He has been going to the pool for water walking, mobility exercises and has been helpful for his strnegth and balance. He would like to do PT again to participate both land and aquative therapy. Personal Factors Other Personal Factors That May Effect overweight Therapy/Recovery previous heart attack CABG placement chronic back pain PT-OP-C Subjective Start: 07/15/21 16:54 Freq: Status: Active Protocol: Document 02/05/22 08:58 SAK (Rec: 02/05/22 09:48 [facility] [id number]) OP-PT Subjective Patient Comments Patient Comments Pain level recently 3-7/10; standing his back tires and hurts. Not doing any exercises at home due to pain and fatigue; only walks between chairs. Wants to be able to stand more and walk more with less pain. Uses rollator at home, not in community due to cumbersome in and out of car. PT-OP-D Balance Start: 07/15/21 16:54 Freq: Status: Active Protocol: Document 07/15/21 16:54 HH (Rec: 07/15/21 17:27 [id number]) Balance Tests Single Limb Standing Single Limb- Right unable Single Limb- Left unable PT-OP-G Mobility & Gait Start: 07/15/21 16:54 Freq: Status: Active Protocol: Document 07/15/21 16:54 HH (Rec: 07/15/21 17:27 [id number]) OP Mobility Evaluation Bed Mobility Supine to and from Sit log roll method OP Gait Assessment Gait Gait Assistance Required: Independent Assistive Devices Assistive Device 4 Wheeled Walker Gait Deviations General Gait Pattern Flexed Trunk Factors Limiting Gait Function Factors Limiting Gait Function Limited Range of Motion,Pain Comments Gait Comments pt walks wth a significant flexed posture with a hyperextended lumbar spine. He often has to stop to keep his walker close to his body. PT-OP-H Neuro Start: 07/15/21 16:54 Freq: Status: Active Protocol: Document 07/15/21 16:54 HH (Rec: 07/15/21 17:27 [id number]) Sensation Evaluation Gross Sensation Gross Sensation WNL Deep Tendon Reflex & Clonus Assessment Deep Tendon Reflex Bilateral Achilles Deep Tendon Reflex 2+ Normal Right Patellar Deep Tendon Reflex 2+ Normal Left Patellar Deep Tendon Reflex 0 Absent PT-OP-J Posture/Palpation/Skin Start: 07/15/21 16:54 Freq: Status: Active Protocol: Document 07/15/21 16:54 (Rec: 07/15/21 17:27 [id number]) Posture Evaluation Position Standing T-Spine Posture Increased Kyphosis L-Spine Posture Increased Lordosis,Flexed Hip Posture (L) Flexed,(R) Flexed Knee Posture (L) Excess Flexion,(R) Excess Flexion PT-OP-K Range of Motion Start: 07/15/21 16:54 Freq: Status: Active Protocol: Document 07/15/21 16:54 HH (Rec: 07/15/21 17:27 [id number]) Lumbar Spine Range of Motion Lumbar Spine Active Degrees Comments hip angle in standing (normal posture) = 28 degrees in flexion hip angle in standing ( extended posture) = 25 degrees in flexion, pain at low back. PT-OP-L Special Tests Start: 07/15/21 16:54 Freq: Status: Active Protocol: Document 07/15/21 16:54 HH (Rec: 07/15/21 17:27 HH [id number]) Special Tests Lumbar Spine Special Tests Slump Test Results -ve Straight Leg Raise Test Results -ve Comments no rad pain but extension pain with SLR on R. PT-OP-M Strength Start: 07/15/21 16:54 Freq: Status: Active Protocol: Document 07/15/21 16:54 HH (Rec: 07/15/21 17:27 HH [id number]) Hip Strength Hip Manual Muscle Testing Right Flexion (L2) 3+ Fair+ Extension (S1) 4- Good- Abduction 4- Good- Adduction 4- Good- Comments low back pain with SLR flexion Left Flexion (L2) 4- Good- Extension (S1) 4- Good- Abduction 4+ Good+ Adduction 4+ Good+ Knee Strength Knee Manual Muscle Testing Right Flexion (S2) 5 Normal Extension (L3) 5 Normal Left Flexion (S2) 5 Normal Extension (L3) 5 Normal Ankle/Foot Strength Ankle and Foot Manual Muscle Testing Right Dorsiflexion (L4) 5 Normal Plantarflexion (S1) 5 Normal Left Dorsiflexion (L4) 5 Normal Plantarflexion (S1) 5 Normal PT-OP-Q Treatments Start: 07/15/21 16:54 Freq: Status: Active Protocol: Document 02/05/22 08:58 SAK (Rec: 02/05/22 09:48 SAK [id number]) Cardio Equipment Recumbent Stepper (Sci-Fit) Duration (Minutes) 5 Resistance 1 Seat Position 12 Other cues for neutral LE alignment, core stab Therapeutic Exercises Sitting Exercises Hip ER stretch Reps/Minutes 2x30 Comments ankle across knee, knee toward opposite shoulder piriformis stretch Reps/Minutes 2x30 Comments figure 4 gluteal sets Reps/Minutes 10x seated clam Equipment Used L2 Reps/Minutes 10x ball squeeze Reps/Minutes 10x Comments cues for Core activation Gait Training Gait Activity //bar Description parallel bars, min UE support Device Used no AD Level of Assistance SBA, min UE support from parallel bars Surface firm Treatment Focus slowed speed, upright posture, PPT, gluteal activation Neuro Re-Education Treatment Balance Activities tandem stand Surface firm Equipment corner, chair Reps/Duration 2x ea Comments partial tandem Standing balance Details Bilateral WBOS, NBOS Surface firm, corner, chair Comments EO, EC Self-Care/Home Management Treatment Education Other Education issued written HEP PT-OP-R Modalities Start: 07/15/21 16:54 Freq: Status: Active Protocol: Document 02/05/22 08:58 SAK (Rec: 02/05/22 16:24 SAK [id number]) Hot Pack/Cold Pack Treatment MHP LS Location B LS Patient Position Hooklying Comments strap around distal thighs PT-OP-S Aquatic Treatment Start: 07/15/21 16:54 Freq: Status: Active Protocol: Document 02/04/22 14:43 LJ (Rec: 02/04/22 14:59 LJ [id number]) Aquatics Treatment Pool Entry/Exit Pool Entry/Exit Method Stairs Assistance Independent Water Walking stop/start with direction change Water Level Chest Level Walking Equipment Ankle Floats Comments 2 min Lunge Walk Water Level Waist Level Walking Equipment Ankle Floats Level of Assistance Standby Assistance Beebe March Water Level Chest Level Walking Equipment kickboard Level of Assistance Standby Assistance Comments pushing kickboard fwd and bck for resistance Marching Water Level Chest Level Walking Equipment Ankle Floats Comments pushing kickboard fwd and bck for resistance Sideways Water Level Chest Level Walking Equipment Ankle Floats Comments lg step over Backwards Water Level Chest Level Level of Assistance Standby Assistance Comments pushing kickboard fwd and bck for resistance Forwards Water Level Chest Level Walking Equipment Ankle Floats Comments pushing kickboard fwd and bck for resistance Lower Extremity Exercises hip ABD Body Position Standing Water Level Waist Level Equipment stretch cords Reps/Duration 2x 8 B kick back Details facing wall Body Position Standing Water Level Waist Level Equipment stretch cords Reps/Duration 2x 8 B SLS Body Position Standing Water Level Waist Level Comments opposite foot on posterior aspect of knee. HH for balance squats Body Position Standing Water Level Waist Level Reps/Duration 15 B Comments single leg Lower Extremity Stretches DKTC/SKTC Details SKTC Body Position Standing Water Level Chest Level Reps/Duration 2x30 quads, HS, hip flexors Equipment stairs and manual assist Reps/Duration 2x30 each Upper Extremity Exercises chest press Body Position Standing Water Level Waist Level Equipment cords Reps/Duration 15 Comments foot braced on wall rows Body Position Standing Water Level Chest Level Equipment cords Reps/Duration 30 flex/ext Body Position Standing Water Level Chest Level Equipment cords Reps/Duration 15 Spinal Exercises paloff press Body Position Standing Water Level Waist Level Equipment cords Reps/Duration 12 B Comments for glute strengthening and core stability trunk rotation Body Position Standing Water Level Chest Level Equipment cords Reps/Duration 15 B Comments emphasis core stabilization Balance step up on boxes Details forward and side Water Level Chest Level Reps/Duration 10 B [place] Activities Other Activities traction Equipment blue float, 5# wts, Duration 10 min PT-OP-T Assessment and Plan Start: 07/15/21 16:54 Freq: Status: Active Protocol: Document 02/05/22 08:58 [facility] (Rec: 02/05/22 09:48 [facility] [id number]) Physical Therapy Assessment Goals weakness Impairment LE and core muscle weakness limiting function Care Home Goal (LTG) Patient will test at least 4+/ 5 all LE and trunk muscle groups to allow him to return to prior level of function. Will be independent and compliant with progressive HEP and aquatic exercise program. LTG Duration 03/09/22 balance Impairment diminished balance scoring in moderate fall risk category Care Home Goal (LTG) Improve balance with patient testing in low fall risk category on Colon Balance test and TUG test for improved safety and decreased risk of injury LTG Duration 03/09/22 walk Impairment pt uses 4ww for all gait Short Term Goal (STG) pt will be able to walk with 2 hiking poles within home distance 10/13/21: goal met Assistant Terminal Manager Goal (LTG) pt will be able to walk with 2 hiking poles at home and community 10/13/21: goal met at home, still mostly uses 4WW in community 01/07/22: patient able to ambulate with trekking poles but for only short distance community ambulation and with exess forward trunk flexion. Updated goal: Patient will be able to ambulate safely in the home without assistive device and for 15 minutes outdoors/ community with improved postural alignment hip angle Impairment pt has a 28 degrees hip flexion angle in standing Short Term Goal (STG) pt will show improved lumbar mobility and tolerance for WB activities will be able to stand with <25 degrees hip flexion. 10/13/21: goal met Care Home Goal (LTG) pt will show improved lumbar mobility and tolerance for WB activities who will be able to stand with <25 degrees hip flexion. 01/07/22: goal progress LTG Duration 03/09/22 Owestry Impairment pt scores 56 on Oswestry disability index score Short Term Goal (STG) pt will show improved overall mobility and strength by scoring <50 on Owestry 12/29/21: goal achieved. STG Duration goal met Assistant Terminal Manager Goal (LTG) Patient will score less then 40 on Oswestry disability index score as measure of decreased pain and improved activity tolerance 12/29/21: goal progress LTG Duration 03/09/22 Progress Towards Goals Progress Towards Goals Slow Progress due to Activity Tolerance Assessment Summary Assessment Patient demonstrated good understanding of updated HEP and denied increase in pain with ther ex today, frequent rest breaks, and cues for exercise in pain-free ROM and intensity. Frequent cues for LE alignment as patient tends toward excess hip ER emily. Strap used around distal thighs during moist heat for neutral LE positioning. Feel land-based therapy will be helpful in helping patient to further progress toward goals. Physical Therapy Plan Frequency and Duration Frequency of Treatment 2x/Week Duration of Treatment 8 wks Plan of Care Start Date 01/05/22 Plan of Care End Date 03/09/22 Therapeutic Interventions Therapeutic Interventions Aquatic Therapy,Balance Training,Gait Training,Home Exercise Program,Joint Mobilizations,Manual Therapy, Neuromuscular Re-education, Patient/Caregiver Education, Self-Care/Home Management,Soft Tissue Mobilization,Taping, Therapeutic Activities, Therapeutic Exercises Modalities Cold Pack/Ice Massage,Electric Stimulation,Hot Packs, Infrared Therapy,Paraffin Bath ,Traction- Mechanical, Ultrasound Next Visit Focus/Plan Next Note Type Treatment Note Next Visit Plan Continue combination of land and aquatic-based PT for strengthening, gait training, balance, core strengthening and stabilization, manual therapy and modalities as needed for pain
--- NOTE | 2022-02-11 10:35 | PT.OTN ---
Current Diagnoses Spondylosis without myelopathy or radiculopathy, lumbar region (02/11/22) Physical Therapy Treatment Note PT-OP-A Visit Information Start: 07/15/21 16:54 Freq: Status: Active Protocol: Document 02/11/22 12:30 SAK (Rec: 02/15/22 10:34 [facility] [id number]) Out-Patient Physical Therapy Visit Information Visit Information Visit Type Aquatic Treatment Note Visit Start Time 12:30 Visit Stop Time 13:15 Total Visit Minutes 45 Visit Number PT-OP-B Current Condition Start: 07/15/21 16:54 Freq: Status: Active Protocol: Document 07/15/21 16:54 HH (Rec: 07/15/21 17:27 HH [id number]) Current Condition History of Current Condition Onset Date 2019 Current Complaints chronic back pain, weakness, difficulty in walking History of Current Condition Toribio is a 71 yo returning patient here for his debilitating chronic LBP. He had L4-L5 microdisectomy last year for his L4L5 ruptured disc. He then had significant loss of mobility and strength who now uses 4WW for all mobility. He bascially cannot stand straight and lay in prone position. He walks with a flexed posture to alleviate his pain. He saw his surgeon 2 months ago and did not recommend further back surgery. He had a course of PT with me but only limited progress (able to use hiking sticks to walk at one point). He has been going to the pool for water walking, mobility exercises and has been helpful for his strnegth and balance. He would like to do PT again to participate both land and aquative therapy. Personal Factors Other Personal Factors That May Effect overweight Therapy/Recovery previous heart attack CABG placement chronic back pain PT-OP-C Subjective Start: 07/15/21 16:54 Freq: Status: Active Protocol: Document 02/11/22 12:30 [facility] (Rec: 02/15/22 10:34 [facility] [id number]) OP-PT Subjective Patient Comments Patient Comments Reports he tolerated land PT ok, willing to do more. Previously unable to tolerate. PT-OP-D Balance Start: 07/15/21 16:54 Freq: Status: Active Protocol: Document 07/15/21 16:54 HH (Rec: 07/15/21 17:27 HH [id number]) Balance Tests Single Limb Standing Single Limb- Right unable Single Limb- Left unable PT-OP-G Mobility & Gait Start: 07/15/21 16:54 Freq: Status: Active Protocol: Document 07/15/21 16:54 (Rec: 07/15/21 17:27 [id number]) OP Mobility Evaluation Bed Mobility Supine to and from Sit log roll method OP Gait Assessment Gait Gait Assistance Required: Independent Assistive Devices Assistive Device 4 Wheeled Walker Gait Deviations General Gait Pattern Flexed Trunk Factors Limiting Gait Function Factors Limiting Gait Function Limited Range of Motion,Pain Comments Gait Comments pt walks wth a significant flexed posture with a hyperextended lumbar spine. He often has to stop to keep his walker close to his body. PT-OP-H Neuro Start: 07/15/21 16:54 Freq: Status: Active Protocol: Document 07/15/21 16:54 HH (Rec: 07/15/21 17:27 [id number]) Sensation Evaluation Gross Sensation Gross Sensation WNL Deep Tendon Reflex & Clonus Assessment Deep Tendon Reflex Bilateral Achilles Deep Tendon Reflex 2+ Normal Right Patellar Deep Tendon Reflex 2+ Normal Left Patellar Deep Tendon Reflex 0 Absent PT-OP-J Posture/Palpation/Skin Start: 07/15/21 16:54 Freq: Status: Active Protocol: Document 07/15/21 16:54 (Rec: 07/15/21 17:27 [id number]) Posture Evaluation Position Standing T-Spine Posture Increased Kyphosis L-Spine Posture Increased Lordosis,Flexed Hip Posture (L) Flexed,(R) Flexed Knee Posture (L) Excess Flexion,(R) Excess Flexion PT-OP-K Range of Motion Start: 07/15/21 16:54 Freq: Status: Active Protocol: Document 07/15/21 16:54 HH (Rec: 07/15/21 17:27 [id number]) Lumbar Spine Range of Motion Lumbar Spine Active Degrees Comments hip angle in standing (normal posture) = 28 degrees in flexion hip angle in standing ( extended posture) = 25 degrees in flexion, pain at low back. PT-OP-L Special Tests Start: 07/15/21 16:54 Freq: Status: Active Protocol: Document 07/15/21 16:54 HH (Rec: 07/15/21 17:27 [id number]) Special Tests Lumbar Spine Special Tests Slump Test Results -ve Straight Leg Raise Test Results -ve Comments no rad pain but extension pain with SLR on R. PT-OP-M Strength Start: 07/15/21 16:54 Freq: Status: Active Protocol: Document 07/15/21 16:54 HH (Rec: 07/15/21 17:27 HH [id number]) Hip Strength Hip Manual Muscle Testing Right Flexion (L2) 3+ Fair+ Extension (S1) 4- Good- Abduction 4- Good- Adduction 4- Good- Comments low back pain with SLR flexion Left Flexion (L2) 4- Good- Extension (S1) 4- Good- Abduction 4+ Good+ Adduction 4+ Good+ Knee Strength Knee Manual Muscle Testing Right Flexion (S2) 5 Normal Extension (L3) 5 Normal Left Flexion (S2) 5 Normal Extension (L3) 5 Normal Ankle/Foot Strength Ankle and Foot Manual Muscle Testing Right Dorsiflexion (L4) 5 Normal Plantarflexion (S1) 5 Normal Left Dorsiflexion (L4) 5 Normal Plantarflexion (S1) 5 Normal PT-OP-Q Treatments Start: 07/15/21 16:54 Freq: Status: Active Protocol: Document 02/05/22 08:58 SAK (Rec: 02/05/22 09:48 SAK [id number]) Cardio Equipment Recumbent Stepper (Sci-Fit) Duration (Minutes) 5 Resistance 1 Seat Position 12 Other cues for neutral LE alignment, core stab Therapeutic Exercises Sitting Exercises Hip ER stretch Reps/Minutes 2x30 Comments ankle across knee, knee toward opposite shoulder piriformis stretch Reps/Minutes 2x30 Comments figure 4 gluteal sets Reps/Minutes 10x seated clam Equipment Used L2 Reps/Minutes 10x ball squeeze Reps/Minutes 10x Comments cues for Core activation Gait Training Gait Activity //bar Description parallel bars, min UE support Device Used no AD Level of Assistance SBA, min UE support from parallel bars Surface firm Treatment Focus slowed speed, upright posture, PPT, gluteal activation Neuro Re-Education Treatment Balance Activities tandem stand Surface firm Equipment corner, chair Reps/Duration 2x ea Comments partial tandem Standing balance Details Bilateral WBOS, NBOS Surface firm, corner, chair Comments EO, EC Self-Care/Home Management Treatment Education Other Education issued written HEP PT-OP-R Modalities Start: 07/15/21 16:54 Freq: Status: Active Protocol: Document 02/05/22 08:58 SAK (Rec: 02/05/22 16:24 SAK [id number]) Hot Pack/Cold Pack Treatment MHP LS Location B LS Patient Position Hooklying Comments strap around distal thighs PT-OP-S Aquatic Treatment Start: 07/15/21 16:54 Freq: Status: Active Protocol: Document 02/11/22 12:30 SAK (Rec: 02/15/22 10:34 SAK [id number]) Aquatics Treatment Pool Entry/Exit Pool Entry/Exit Method Stairs Assistance Independent Water Walking stop/start with direction change Water Level Chest Level Walking Equipment Ankle Floats Comments 2 min Lunge Walk Water Level Waist Level Walking Equipment Ankle Floats Level of Assistance Standby Assistance [place] March Water Level Chest Level Walking Equipment kickboard Level of Assistance Standby Assistance Comments pushing kickboard fwd and bck for resistance Marching Water Level Chest Level Walking Equipment Ankle Floats Comments pushing kickboard fwd and bck for resistance Sideways Water Level Chest Level Walking Equipment Ankle Floats Comments lg step over Forwards Water Level Chest Level Walking Equipment Ankle Floats Comments pushing kickboard fwd and bck for resistance Lower Extremity Stretches DKTC/SKTC Details SKTC Body Position Standing Water Level Chest Level Reps/Duration 2x30 quads, HS, hip flexors Equipment stairs and manual assist Reps/Duration 2x30 each [place] Activities Other Activities traction Equipment blue float, 5# wts, Duration 10 min Swim Strokes Backstroke Equipment Fins Other Equipment Used noodle float under arms Laps/Duration 10m x 2 Comments arms at sides kick on back Equipment Flotation Belt Other Equipment Used fins Laps/Duration 10 m x 3 PT-OP-T Assessment and Plan Start: 07/15/21 16:54 Freq: Status: Active Protocol: Document 02/11/22 12:30 [facility] (Rec: 02/15/22 10:34 [facility] [id number]) Physical Therapy Assessment Rehab Potential Rehabilitation Potential Fair Evaluation Complexity Number of Personal Factors/Comorbidities 3 or More Number of Body Systems Impaired 3 Clinical Presentation at Evaluation Stable Impairments Impairments Activity Tolerance,Balance, Functional Activities, Functional Mobility,Gait,Pain, Posture,ROM,Soft Tissue Mobility,Strength,Transfers Goals weakness Impairment LE and core muscle weakness limiting function Care Home Goal (LTG) Patient will test at least 4+/ 5 all LE and trunk muscle groups to allow him to return to prior level of function. Will be independent and compliant with progressive HEP and aquatic exercise program. LTG Duration 03/09/22 balance Impairment diminished balance scoring in moderate fall risk category Route Specialist Goal (LTG) Improve balance with patient testing in low fall risk category on Colon Balance test and TUG test for improved safety and decreased risk of injury LTG Duration 03/09/22 walk Impairment pt uses 4ww for all gait Short Term Goal (STG) pt will be able to walk with 2 hiking poles within home distance 10/13/21: goal met Route Specialist Goal (LTG) pt will be able to walk with 2 hiking poles at home and community 10/13/21: goal met at home, still mostly uses 4WW in community 01/07/22: patient able to ambulate with trekking poles but for only short distance community ambulation and with exess forward trunk flexion. Updated goal: Patient will be able to ambulate safely in the home without assistive device and for 15 minutes outdoors/ community with improved postural alignment hip angle Impairment pt has a 28 degrees hip flexion angle in standing Short Term Goal (STG) pt will show improved lumbar mobility and tolerance for WB activities will be able to stand with <25 degrees hip flexion. 10/13/21: goal met Route Specialist Goal (LTG) pt will show improved lumbar mobility and tolerance for WB activities who will be able to stand with <25 degrees hip flexion. 01/07/22: goal progress LTG Duration 03/09/22 Owestry Impairment pt scores 56 on Oswestry disability index score Short Term Goal (STG) pt will show improved overall mobility and strength by scoring <50 on Owestry 12/29/21: goal achieved. STG Duration goal met Route Specialist Goal (LTG) Patient will score less then 40 on Oswestry disability index score as measure of decreased pain and improved activity tolerance 12/29/21: goal progress LTG Duration 03/09/22 Progress Towards Goals Progress Towards Goals Slow Progress due to Activity Tolerance Assessment Summary Assessment Patient improving in tolerance for supine swim but has difficulty attaining vertical position after; not able to do with float assistance independently . Had good tolerance for land-based PT and am attempting to schedule further visits. Physical Therapy Plan Frequency and Duration Frequency of Treatment 2x/Week Duration of Treatment 8 wks Plan of Care Start Date 01/05/22 Plan of Care End Date 03/09/22 Therapeutic Interventions Therapeutic Interventions Aquatic Therapy,Balance Training,Gait Training,Home Exercise Program,Joint Mobilizations,Manual Therapy, Neuromuscular Re-education, Patient/Caregiver Education, Self-Care/Home Management,Soft Tissue Mobilization,Taping, Therapeutic Activities, Therapeutic Exercises Modalities Cold Pack/Ice Massage,Electric Stimulation,Hot Packs, Infrared Therapy,Paraffin Bath ,Traction- Mechanical, Ultrasound Next Visit Focus/Plan Next Note Type Treatment Note Next Visit Plan Continue combination of land and aquatic-based PT for strengthening, gait training, balance, core strengthening and stabilization, manual therapy and modalities as needed for pain
--- NOTE | 2022-02-18 14:29 | PT.OTN ---
Current Diagnoses Spondylosis without myelopathy or radiculopathy, lumbar region (02/18/22) Physical Therapy Treatment Note PT-OP-A Visit Information Start: 07/15/21 16:54 Freq: Status: Active Protocol: Document 02/23/22 14:15 [facility] (Rec: 02/23/22 14:29 [facility] [id number]) Out-Patient Physical Therapy Visit Information Visit Information Visit Type Aquatic Treatment Note Visit Start Time 12:30 Visit Stop Time 13:15 Total Visit Minutes 45 Visit Number PT-OP-B Current Condition Start: 07/15/21 16:54 Freq: Status: Active Protocol: Document 07/15/21 16:54 HH (Rec: 07/15/21 17:27 HH [id number]) Current Condition History of Current Condition Onset Date 2019 Current Complaints chronic back pain, weakness, difficulty in walking History of Current Condition Toribio is a 71 yo returning patient here for his debilitating chronic LBP. He had L4-L5 microdisectomy last year for his L4L5 ruptured disc. He then had significant loss of mobility and strength who now uses 4WW for all mobility. He bascially cannot stand straight and lay in prone position. He walks with a flexed posture to alleviate his pain. He saw his surgeon 2 months ago and did not recommend further back surgery. He had a course of PT with me but only limited progress (able to use hiking sticks to walk at one point). He has been going to the pool for water walking, mobility exercises and has been helpful for his strnegth and balance. He would like to do PT again to participate both land and aquative therapy. Personal Factors Other Personal Factors That May Effect overweight Therapy/Recovery previous heart attack CABG placement chronic back pain PT-OP-C Subjective Start: 07/15/21 16:54 Freq: Status: Active Protocol: Document 02/23/22 14:15 [facility] (Rec: 02/23/22 14:29 [facility] [id number]) OP-PT Subjective Patient Comments Patient Comments Hoping to do more land-based PT. States his strength and balance are variable day to day. PT-OP-D Balance Start: 07/15/21 16:54 Freq: Status: Active Protocol: Document 07/15/21 16:54 HH (Rec: 07/15/21 17:27 HH [id number]) Balance Tests Single Limb Standing Single Limb- Right unable Single Limb- Left unable PT-OP-G Mobility & Gait Start: 07/15/21 16:54 Freq: Status: Active Protocol: Document 07/15/21 16:54 (Rec: 07/15/21 17:27 [id number]) OP Mobility Evaluation Bed Mobility Supine to and from Sit log roll method OP Gait Assessment Gait Gait Assistance Required: Independent Assistive Devices Assistive Device 4 Wheeled Walker Gait Deviations General Gait Pattern Flexed Trunk Factors Limiting Gait Function Factors Limiting Gait Function Limited Range of Motion,Pain Comments Gait Comments pt walks wth a significant flexed posture with a hyperextended lumbar spine. He often has to stop to keep his walker close to his body. PT-OP-H Neuro Start: 07/15/21 16:54 Freq: Status: Active Protocol: Document 07/15/21 16:54 (Rec: 07/15/21 17:27 [id number]) Sensation Evaluation Gross Sensation Gross Sensation WNL Deep Tendon Reflex & Clonus Assessment Deep Tendon Reflex Bilateral Achilles Deep Tendon Reflex 2+ Normal Right Patellar Deep Tendon Reflex 2+ Normal Left Patellar Deep Tendon Reflex 0 Absent PT-OP-J Posture/Palpation/Skin Start: 07/15/21 16:54 Freq: Status: Active Protocol: Document 07/15/21 16:54 (Rec: 07/15/21 17:27 [id number]) Posture Evaluation Position Standing T-Spine Posture Increased Kyphosis L-Spine Posture Increased Lordosis,Flexed Hip Posture (L) Flexed,(R) Flexed Knee Posture (L) Excess Flexion,(R) Excess Flexion PT-OP-K Range of Motion Start: 07/15/21 16:54 Freq: Status: Active Protocol: Document 07/15/21 16:54 HH (Rec: 07/15/21 17:27 [id number]) Lumbar Spine Range of Motion Lumbar Spine Active Degrees Comments hip angle in standing (normal posture) = 28 degrees in flexion hip angle in standing ( extended posture) = 25 degrees in flexion, pain at low back. PT-OP-L Special Tests Start: 07/15/21 16:54 Freq: Status: Active Protocol: Document 07/15/21 16:54 (Rec: 07/15/21 17:27 [id number]) Special Tests Lumbar Spine Special Tests Slump Test Results -ve Straight Leg Raise Test Results -ve Comments no rad pain but extension pain with SLR on R. PT-OP-M Strength Start: 07/15/21 16:54 Freq: Status: Active Protocol: Document 07/15/21 16:54 HH (Rec: 07/15/21 17:27 HH [id number]) Hip Strength Hip Manual Muscle Testing Right Flexion (L2) 3+ Fair+ Extension (S1) 4- Good- Abduction 4- Good- Adduction 4- Good- Comments low back pain with SLR flexion Left Flexion (L2) 4- Good- Extension (S1) 4- Good- Abduction 4+ Good+ Adduction 4+ Good+ Knee Strength Knee Manual Muscle Testing Right Flexion (S2) 5 Normal Extension (L3) 5 Normal Left Flexion (S2) 5 Normal Extension (L3) 5 Normal Ankle/Foot Strength Ankle and Foot Manual Muscle Testing Right Dorsiflexion (L4) 5 Normal Plantarflexion (S1) 5 Normal Left Dorsiflexion (L4) 5 Normal Plantarflexion (S1) 5 Normal PT-OP-Q Treatments Start: 07/15/21 16:54 Freq: Status: Active Protocol: Document 02/05/22 08:58 SAK (Rec: 02/05/22 09:48 SAK [id number]) Cardio Equipment Recumbent Stepper (Sci-Fit) Duration (Minutes) 5 Resistance 1 Seat Position 12 Other cues for neutral LE alignment, core stab Therapeutic Exercises Sitting Exercises Hip ER stretch Reps/Minutes 2x30 Comments ankle across knee, knee toward opposite shoulder piriformis stretch Reps/Minutes 2x30 Comments figure 4 gluteal sets Reps/Minutes 10x seated clam Equipment Used L2 Reps/Minutes 10x ball squeeze Reps/Minutes 10x Comments cues for Core activation Gait Training Gait Activity //bar Description parallel bars, min UE support Device Used no AD Level of Assistance SBA, min UE support from parallel bars Surface firm Treatment Focus slowed speed, upright posture, PPT, gluteal activation Neuro Re-Education Treatment Balance Activities tandem stand Surface firm Equipment corner, chair Reps/Duration 2x ea Comments partial tandem Standing balance Details Bilateral WBOS, NBOS Surface firm, corner, chair Comments EO, EC Self-Care/Home Management Treatment Education Other Education issued written HEP PT-OP-R Modalities Start: 07/15/21 16:54 Freq: Status: Active Protocol: Document 02/05/22 08:58 SAK (Rec: 02/05/22 16:24 SAK [id number]) Hot Pack/Cold Pack Treatment MHP LS Location B LS Patient Position Hooklying Comments strap around distal thighs PT-OP-S Aquatic Treatment Start: 07/15/21 16:54 Freq: Status: Active Protocol: Document 02/23/22 14:15 SAK (Rec: 02/23/22 14:29 [facility] [id number]) Aquatics Treatment Pool Entry/Exit Pool Entry/Exit Method Stairs Assistance Independent Water Walking stop/start with direction change Water Level Chest Level Walking Equipment Ankle Floats Comments 2 min [place] March Water Level Chest Level Walking Equipment kickboard Level of Assistance Standby Assistance Comments pushing kickboard fwd and bck for resistance Marching Water Level Chest Level Walking Equipment Ankle Floats Comments pushing kickboard fwd and bck for resistance Sideways Water Level Chest Level Walking Equipment Ankle Floats Comments lg step over Backwards Water Level Chest Level Level of Assistance Standby Assistance Comments pushing kickboard fwd and bck for resistance Forwards Water Level Chest Level Walking Equipment fins Comments pushing kickboard fwd and bck for resistance Lower Extremity Exercises hip ABD Body Position Standing Water Level Waist Level Equipment stretch cords Reps/Duration 2x 8 B kick back Details facing wall Body Position Standing Water Level Waist Level Equipment stretch cords Reps/Duration 2x 8 B SLS Body Position Standing Water Level Waist Level Comments opposite foot on posterior aspect of knee. HH for balance squats Body Position Standing Water Level Waist Level Reps/Duration 15 B Comments single leg Lower Extremity Stretches DKTC/SKTC Details SKTC Body Position Standing Water Level Chest Level Reps/Duration 2x30 quads, HS, hip flexors Equipment Small Noodle Reps/Duration 2x30 each Upper Extremity Exercises chest press Body Position Standing Water Level Waist Level Equipment cords Reps/Duration 15 Comments foot braced on wall rows Body Position Standing Water Level Chest Level Equipment cords Reps/Duration 30 flex/ext Body Position Standing Water Level Chest Level Equipment cords Reps/Duration 15 Spinal Exercises paloff press Body Position Standing Water Level Waist Level Equipment cords Reps/Duration 12 B Comments for glute strengthening and core stability trunk rotation Body Position Standing Water Level Chest Level Equipment cords Reps/Duration 15 B Comments emphasis core stabilization Balance step up on boxes Details forward and side Water Level Chest Level Reps/Duration 10 B Swim Strokes kick on back Other Equipment Used fins Laps/Duration 10 m x 3 PT-OP-T Assessment and Plan Start: 07/15/21 16:54 Freq: Status: Active Protocol: Document 02/23/22 14:15 [facility] (Rec: 02/23/22 14:29 [facility] [id number]) Physical Therapy Assessment Goals weakness Impairment LE and core muscle weakness limiting function Halfway Goal (LTG) Patient will test at least 4+/ 5 all LE and trunk muscle groups to allow him to return to prior level of function. Will be independent and compliant with progressive HEP and aquatic exercise program. LTG Duration 03/09/22 balance Impairment diminished balance scoring in moderate fall risk category Nuclear Technician Goal (LTG) Improve balance with patient testing in low fall risk category on Colon Balance test and TUG test for improved safety and decreased risk of injury LTG Duration 03/09/22 walk Impairment pt uses 4ww for all gait Short Term Goal (STG) pt will be able to walk with 2 hiking poles within home distance 10/13/21: goal met Nuclear Technician Goal (LTG) pt will be able to walk with 2 hiking poles at home and community 10/13/21: goal met at home, still mostly uses 4WW in community 01/07/22: patient able to ambulate with trekking poles but for only short distance community ambulation and with exess forward trunk flexion. Updated goal: Patient will be able to ambulate safely in the home without assistive device and for 15 minutes outdoors/ community with improved postural alignment hip angle Impairment pt has a 28 degrees hip flexion angle in standing Short Term Goal (STG) pt will show improved lumbar mobility and tolerance for WB activities will be able to stand with <25 degrees hip flexion. 10/13/21: goal met Nuclear Technician Goal (LTG) pt will show improved lumbar mobility and tolerance for WB activities who will be able to stand with <25 degrees hip flexion. 01/07/22: goal progress LTG Duration 03/09/22 Owestry Impairment pt scores 56 on Oswestry disability index score Short Term Goal (STG) pt will show improved overall mobility and strength by scoring <50 on Owestry 12/29/21: goal achieved. STG Duration goal met Halfway Goal (LTG) Patient will score less then 40 on Oswestry disability index score as measure of decreased pain and improved activity tolerance 12/29/21: goal progress LTG Duration 03/09/22 Progress Towards Goals Progress Towards Goals Slow Progress due to Activity Tolerance Physical Therapy Plan Frequency and Duration Frequency of Treatment 2x/Week Duration of Treatment 8 wks Plan of Care Start Date 01/05/22 Plan of Care End Date 03/09/22 Therapeutic Interventions Therapeutic Interventions Aquatic Therapy,Balance Training,Gait Training,Home Exercise Program,Joint Mobilizations,Manual Therapy, Neuromuscular Re-education, Patient/Caregiver Education, Self-Care/Home Management,Soft Tissue Mobilization,Taping, Therapeutic Activities, Therapeutic Exercises Modalities Cold Pack/Ice Massage,Electric Stimulation,Hot Packs, Infrared Therapy,Paraffin Bath ,Traction- Mechanical, Ultrasound
--- NOTE | 2022-02-24 17:48 | PT.OTN ---
Current Diagnoses Spondylosis without myelopathy or radiculopathy, lumbar region (02/24/22) Physical Therapy Treatment Note PT-OP-A Visit Information Start: 07/15/21 16:54 Freq: Status: Active Protocol: Document 02/24/22 10:37 SAK (Rec: 02/24/22 11:15 SAK [id number]) Out-Patient Physical Therapy Visit Information Visit Information Visit Type Treatment Note Visit Start Time 10:35 Visit Stop Time 11:30 Total Visit Minutes 55 Visit Number PT-OP-B Current Condition Start: 07/15/21 16:54 Freq: Status: Active Protocol: Document 07/15/21 16:54 HH (Rec: 07/15/21 17:27 HH [id number]) Current Condition History of Current Condition Onset Date 2019 Current Complaints chronic back pain, weakness, difficulty in walking History of Current Condition Toribio is a 71 yo returning patient here for his debilitating chronic LBP. He had L4-L5 microdisectomy last year for his L4L5 ruptured disc. He then had significant loss of mobility and strength who now uses 4WW for all mobility. He bascially cannot stand straight and lay in prone position. He walks with a flexed posture to alleviate his pain. He saw his surgeon 2 months ago and did not recommend further back surgery. He had a course of PT with me but only limited progress (able to use hiking sticks to walk at one point). He has been going to the pool for water walking, mobility exercises and has been helpful for his strnegth and balance. He would like to do PT again to participate both land and aquative therapy. Personal Factors Other Personal Factors That May Effect overweight Therapy/Recovery previous heart attack CABG placement chronic back pain PT-OP-C Subjective Start: 07/15/21 16:54 Freq: Status: Active Protocol: Document 02/24/22 10:37 SAK (Rec: 02/24/22 11:15 SAK [id number]) OP-PT Subjective Patient Comments Patient Comments Walking a little better today; some days are better than others, unpredictable. States he feels his back is weak. PT-OP-D Balance Start: 07/15/21 16:54 Freq: Status: Active Protocol: Document 07/15/21 16:54 HH (Rec: 07/15/21 17:27 HH [id number]) Balance Tests Single Limb Standing Single Limb- Right unable Single Limb- Left unable PT-OP-G Mobility & Gait Start: 07/15/21 16:54 Freq: Status: Active Protocol: Document 07/15/21 16:54 (Rec: 07/15/21 17:27 [id number]) OP Mobility Evaluation Bed Mobility Supine to and from Sit log roll method OP Gait Assessment Gait Gait Assistance Required: Independent Assistive Devices Assistive Device 4 Wheeled Walker Gait Deviations General Gait Pattern Flexed Trunk Factors Limiting Gait Function Factors Limiting Gait Function Limited Range of Motion,Pain Comments Gait Comments pt walks wth a significant flexed posture with a hyperextended lumbar spine. He often has to stop to keep his walker close to his body. PT-OP-H Neuro Start: 07/15/21 16:54 Freq: Status: Active Protocol: Document 07/15/21 16:54 (Rec: 07/15/21 17:27 [id number]) Sensation Evaluation Gross Sensation Gross Sensation WNL Deep Tendon Reflex & Clonus Assessment Deep Tendon Reflex Bilateral Achilles Deep Tendon Reflex 2+ Normal Right Patellar Deep Tendon Reflex 2+ Normal Left Patellar Deep Tendon Reflex 0 Absent PT-OP-J Posture/Palpation/Skin Start: 07/15/21 16:54 Freq: Status: Active Protocol: Document 07/15/21 16:54 (Rec: 07/15/21 17:27 [id number]) Posture Evaluation Position Standing T-Spine Posture Increased Kyphosis L-Spine Posture Increased Lordosis,Flexed Hip Posture (L) Flexed,(R) Flexed Knee Posture (L) Excess Flexion,(R) Excess Flexion PT-OP-K Range of Motion Start: 07/15/21 16:54 Freq: Status: Active Protocol: Document 07/15/21 16:54 (Rec: 07/15/21 17:27 [id number]) Lumbar Spine Range of Motion Lumbar Spine Active Degrees Comments hip angle in standing (normal posture) = 28 degrees in flexion hip angle in standing ( extended posture) = 25 degrees in flexion, pain at low back. PT-OP-L Special Tests Start: 07/15/21 16:54 Freq: Status: Active Protocol: Document 07/15/21 16:54 (Rec: 07/15/21 17:27 [id number]) Special Tests Lumbar Spine Special Tests Slump Test Results -ve Straight Leg Raise Test Results -ve Comments no rad pain but extension pain with SLR on R. PT-OP-M Strength Start: 07/15/21 16:54 Freq: Status: Active Protocol: Document 07/15/21 16:54 HH (Rec: 07/15/21 17:27 HH [id number]) Hip Strength Hip Manual Muscle Testing Right Flexion (L2) 3+ Fair+ Extension (S1) 4- Good- Abduction 4- Good- Adduction 4- Good- Comments low back pain with SLR flexion Left Flexion (L2) 4- Good- Extension (S1) 4- Good- Abduction 4+ Good+ Adduction 4+ Good+ Knee Strength Knee Manual Muscle Testing Right Flexion (S2) 5 Normal Extension (L3) 5 Normal Left Flexion (S2) 5 Normal Extension (L3) 5 Normal Ankle/Foot Strength Ankle and Foot Manual Muscle Testing Right Dorsiflexion (L4) 5 Normal Plantarflexion (S1) 5 Normal Left Dorsiflexion (L4) 5 Normal Plantarflexion (S1) 5 Normal PT-OP-Q Treatments Start: 07/15/21 16:54 Freq: Status: Active Protocol: Document 02/24/22 10:37 SAK (Rec: 02/24/22 11:15 SAK [id number]) Cardio Equipment Recumbent Stepper (Sci-Fit) Duration (Minutes) 7 Resistance 1 Seat Position 14 Other cues for neutral LE alignment, core stab Treadmill Duration (Minutes) 2 Speed 1.7 mph Incline 0 Other cues for upright posture, heavy use of UE Gym Equipment Sport Cord green Exercise Details fwd Cord/Resistance green Reps/Duration 10x Comments trekking pole Therapeutic Exercises Supine Exercises bridge Reps/Minutes 10x Sitting Exercises seated hip flex/rectus ab hali Reps/Minutes 10x Comments hands on thighs isometric Sitting Exercise Name core stab Comments emily hands on thighs, opp hand on thigh Standing Exercises shoulder extension Equipment Used L1 TB Reps/Minutes 10x Comments cues for neutral posture and core activation opp UE/LE lift Reps/Minutes 10x Comments UE support on wall, core activation PT-OP-R Modalities Start: 07/15/21 16:54 Freq: Status: Active Protocol: Document 02/24/22 10:37 SAK (Rec: 02/24/22 17:47 SAK [id number]) Hot Pack/Cold Pack Treatment MHP LS Location B LS Patient Position Hooklying Comments strap around distal thighs PT-OP-S Aquatic Treatment Start: 07/15/21 16:54 Freq: Status: Active Protocol: Document 02/23/22 14:15 [facility] (Rec: 02/23/22 14:29 [facility] [id number]) Aquatics Treatment Pool Entry/Exit Pool Entry/Exit Method Stairs Assistance Independent Water Walking stop/start with direction change Water Level Chest Level Walking Equipment Ankle Floats Comments 2 min [place] March Water Level Chest Level Walking Equipment kickboard Level of Assistance Standby Assistance Comments pushing kickboard fwd and bck for resistance Marching Water Level Chest Level Walking Equipment Ankle Floats Comments pushing kickboard fwd and bck for resistance Sideways Water Level Chest Level Walking Equipment Ankle Floats Comments lg step over Backwards Water Level Chest Level Level of Assistance Standby Assistance Comments pushing kickboard fwd and bck for resistance Forwards Water Level Chest Level Walking Equipment fins Comments pushing kickboard fwd and bck for resistance Lower Extremity Exercises hip ABD Body Position Standing Water Level Waist Level Equipment stretch cords Reps/Duration 2x 8 B kick back Details facing wall Body Position Standing Water Level Waist Level Equipment stretch cords Reps/Duration 2x 8 B SLS Body Position Standing Water Level Waist Level Comments opposite foot on posterior aspect of knee. HH for balance squats Body Position Standing Water Level Waist Level Reps/Duration 15 B Comments single leg Lower Extremity Stretches DKTC/SKTC Details SKTC Body Position Standing Water Level Chest Level Reps/Duration 2x30 quads, HS, hip flexors Equipment Small Noodle Reps/Duration 2x30 each Upper Extremity Exercises chest press Body Position Standing Water Level Waist Level Equipment cords Reps/Duration 15 Comments foot braced on wall rows Body Position Standing Water Level Chest Level Equipment cords Reps/Duration 30 flex/ext Body Position Standing Water Level Chest Level Equipment cords Reps/Duration 15 Spinal Exercises paloff press Body Position Standing Water Level Waist Level Equipment cords Reps/Duration 12 B Comments for glute strengthening and core stability trunk rotation Body Position Standing Water Level Chest Level Equipment cords Reps/Duration 15 B Comments emphasis core stabilization Balance step up on boxes Details forward and side Water Level Chest Level Reps/Duration 10 B Swim Strokes kick on back Other Equipment Used fins Laps/Duration 10 m x 3 PT-OP-T Assessment and Plan Start: 07/15/21 16:54 Freq: Status: Active Protocol: Document 02/24/22 10:37 KIKI (Rec: 02/24/22 11:15 SAK [id number]) Physical Therapy Assessment Goals weakness Impairment LE and core muscle weakness limiting function Massage Therapy Instructor Goal (LTG) Patient will test at least 4+/ 5 all LE and trunk muscle groups to allow him to return to prior level of function. Will be independent and compliant with progressive HEP and aquatic exercise program. LTG Duration 03/09/22 balance Impairment diminished balance scoring in moderate fall risk category Massage Therapy Instructor Goal (LTG) Improve balance with patient testing in low fall risk category on Colon Balance test and TUG test for improved safety and decreased risk of injury LTG Duration 03/09/22 walk Impairment pt uses 4ww for all gait Short Term Goal (STG) pt will be able to walk with 2 hiking poles within home distance 10/13/21: goal met [facility] Goal (LTG) pt will be able to walk with 2 hiking poles at home and community 10/13/21: goal met at home, still mostly uses 4WW in community 01/07/22: patient able to ambulate with trekking poles but for only short distance community ambulation and with exess forward trunk flexion. Updated goal: Patient will be able to ambulate safely in the home without assistive device and for 15 minutes outdoors/ community with improved postural alignment LTG Duration 03/09/22 hip angle Impairment pt has a 28 degrees hip flexion angle in standing Short Term Goal (STG) pt will show improved lumbar mobility and tolerance for WB activities will be able to stand with <25 degrees hip flexion. 10/13/21: goal met Massage Therapy Instructor Goal (LTG) pt will show improved lumbar mobility and tolerance for WB activities who will be able to stand with <25 degrees hip flexion. 01/07/22: goal progress LTG Duration 03/09/22 Owestry Impairment pt scores 56 on Oswestry disability index score Short Term Goal (STG) pt will show improved overall mobility and strength by scoring <50 on Owestry 12/29/21: goal achieved. STG Duration goal met [facility] Goal (LTG) Patient will score less then 40 on Oswestry disability index score as measure of decreased pain and improved activity tolerance 12/29/21: goal progress LTG Duration 03/09/22 Progress Towards Goals Progress Towards Goals Slow Progress due to Activity Tolerance Assessment Summary Assessment Recommending patient use exercise bike at home. Only doing household walking; encouraged increased walking as tolerated. Patient fatigues quickly, reports frequent napping in his chair at home. Tolerating increase in land-based ther ex today. Ambulates with excess knee and trunk flexion, difficulty correcting but improved some with use of mirror and sport cord. Physical Therapy Plan Frequency and Duration Frequency of Treatment 2x/Week Duration of Treatment 8 wks Plan of Care Start Date 01/05/22 Plan of Care End Date 03/09/22 Therapeutic Interventions Therapeutic Interventions Aquatic Therapy,Balance Training,Gait Training,Home Exercise Program,Joint Mobilizations,Manual Therapy, Neuromuscular Re-education, Patient/Caregiver Education, Self-Care/Home Management,Soft Tissue Mobilization,Taping, Therapeutic Activities, Therapeutic Exercises Modalities Cold Pack/Ice Massage,Electric Stimulation,Hot Packs, Infrared Therapy,Paraffin Bath ,Traction- Mechanical, Ultrasound Next Visit Focus/Plan Next Note Type Treatment Note Next Visit Plan Continue combination of land and aquatic-based PT for strengthening, gait training, balance, core strengthening and stabilization, manual therapy and modalities as needed for pain
--- NOTE | 2022-02-25 15:17 | PT.OTN ---
Current Diagnoses Spondylosis without myelopathy or radiculopathy, lumbar region (02/24/22) Physical Therapy Treatment Note PT-OP-A Visit Information Start: 07/15/21 16:54 Freq: Status: Active Protocol: Document 02/25/22 15:03 BRET (Rec: 02/25/22 15:17 LJ [id number]) Out-Patient Physical Therapy Visit Information Visit Information Visit Type Aquatic Treatment Note Visit Start Time 11:45 Visit Stop Time 12:30 Total Visit Minutes 45 Visit Number Number of CASHIERS SUPERVISOR Visits 1 PT-OP-B Current Condition Start: 07/15/21 16:54 Freq: Status: Active Protocol: Document 07/15/21 16:54 HH (Rec: 07/15/21 17:27 HH [id number]) Current Condition History of Current Condition Onset Date 2019 Current Complaints chronic back pain, weakness, difficulty in walking History of Current Condition Toribio is a 71 yo returning patient here for his debilitating chronic LBP. He had L4-L5 microdisectomy last year for his L4L5 ruptured disc. He then had significant loss of mobility and strength who now uses 4WW for all mobility. He bascially cannot stand straight and lay in prone position. He walks with a flexed posture to alleviate his pain. He saw his surgeon 2 months ago and did not recommend further back surgery. He had a course of PT with me but only limited progress (able to use hiking sticks to walk at one point). He has been going to the pool for water walking, mobility exercises and has been helpful for his strnegth and balance. He would like to do PT again to participate both land and aquative therapy. Personal Factors Other Personal Factors That May Effect overweight Therapy/Recovery previous heart attack CABG placement chronic back pain PT-OP-C Subjective Start: 07/15/21 16:54 Freq: Status: Active Protocol: Document 02/25/22 15:03 BRET (Rec: 02/25/22 15:17 LJ [id number]) OP-PT Subjective Patient Comments Patient Comments Pt says hehis R low back is sore today after PT session in clinic. PT-OP-D Balance Start: 07/15/21 16:54 Freq: Status: Active Protocol: Document 07/15/21 16:54 HH (Rec: 07/15/21 17:27 HH [id number]) Balance Tests Single Limb Standing Single Limb- Right unable Single Limb- Left unable PT-OP-G Mobility & Gait Start: 07/15/21 16:54 Freq: Status: Active Protocol: Document 07/15/21 16:54 (Rec: 07/15/21 17:27 [id number]) OP Mobility Evaluation Bed Mobility Supine to and from Sit log roll method OP Gait Assessment Gait Gait Assistance Required: Independent Assistive Devices Assistive Device 4 Wheeled Walker Gait Deviations General Gait Pattern Flexed Trunk Factors Limiting Gait Function Factors Limiting Gait Function Limited Range of Motion,Pain Comments Gait Comments pt walks wth a significant flexed posture with a hyperextended lumbar spine. He often has to stop to keep his walker close to his body. PT-OP-H Neuro Start: 07/15/21 16:54 Freq: Status: Active Protocol: Document 07/15/21 16:54 (Rec: 07/15/21 17:27 [id number]) Sensation Evaluation Gross Sensation Gross Sensation WNL Deep Tendon Reflex & Clonus Assessment Deep Tendon Reflex Bilateral Achilles Deep Tendon Reflex 2+ Normal Right Patellar Deep Tendon Reflex 2+ Normal Left Patellar Deep Tendon Reflex 0 Absent PT-OP-J Posture/Palpation/Skin Start: 07/15/21 16:54 Freq: Status: Active Protocol: Document 07/15/21 16:54 (Rec: 07/15/21 17:27 [id number]) Posture Evaluation Position Standing T-Spine Posture Increased Kyphosis L-Spine Posture Increased Lordosis,Flexed Hip Posture (L) Flexed,(R) Flexed Knee Posture (L) Excess Flexion,(R) Excess Flexion PT-OP-K Range of Motion Start: 07/15/21 16:54 Freq: Status: Active Protocol: Document 07/15/21 16:54 (Rec: 07/15/21 17:27 [id number]) Lumbar Spine Range of Motion Lumbar Spine Active Degrees Comments hip angle in standing (normal posture) = 28 degrees in flexion hip angle in standing ( extended posture) = 25 degrees in flexion, pain at low back. PT-OP-L Special Tests Start: 07/15/21 16:54 Freq: Status: Active Protocol: Document 07/15/21 16:54 (Rec: 07/15/21 17:27 [id number]) Special Tests Lumbar Spine Special Tests Slump Test Results -ve Straight Leg Raise Test Results -ve Comments no rad pain but extension pain with SLR on R. PT-OP-M Strength Start: 07/15/21 16:54 Freq: Status: Active Protocol: Document 07/15/21 16:54 HH (Rec: 07/15/21 17:27 HH [id number]) Hip Strength Hip Manual Muscle Testing Right Flexion (L2) 3+ Fair+ Extension (S1) 4- Good- Abduction 4- Good- Adduction 4- Good- Comments low back pain with SLR flexion Left Flexion (L2) 4- Good- Extension (S1) 4- Good- Abduction 4+ Good+ Adduction 4+ Good+ Knee Strength Knee Manual Muscle Testing Right Flexion (S2) 5 Normal Extension (L3) 5 Normal Left Flexion (S2) 5 Normal Extension (L3) 5 Normal Ankle/Foot Strength Ankle and Foot Manual Muscle Testing Right Dorsiflexion (L4) 5 Normal Plantarflexion (S1) 5 Normal Left Dorsiflexion (L4) 5 Normal Plantarflexion (S1) 5 Normal PT-OP-Q Treatments Start: 07/15/21 16:54 Freq: Status: Active Protocol: Document 02/24/22 10:37 SAK (Rec: 02/24/22 11:15 SAK [id number]) Cardio Equipment Recumbent Stepper (Sci-Fit) Duration (Minutes) 7 Resistance 1 Seat Position 14 Other cues for neutral LE alignment, core stab Treadmill Duration (Minutes) 2 Speed 1.7 mph Incline 0 Other cues for upright posture, heavy use of UE Gym Equipment Sport Cord green Exercise Details fwd Cord/Resistance green Reps/Duration 10x Comments trekking pole Therapeutic Exercises Supine Exercises bridge Reps/Minutes 10x Sitting Exercises seated hip flex/rectus ab hali Reps/Minutes 10x Comments hands on thighs isometric Sitting Exercise Name core stab Comments emily hands on thighs, opp hand on thigh Standing Exercises shoulder extension Equipment Used L1 TB Reps/Minutes 10x Comments cues for neutral posture and core activation opp UE/LE lift Reps/Minutes 10x Comments UE support on wall, core activation PT-OP-R Modalities Start: 07/15/21 16:54 Freq: Status: Active Protocol: Document 02/24/22 10:37 SAK (Rec: 02/24/22 17:47 SAK [id number]) Hot Pack/Cold Pack Treatment MHP LS Location B LS Patient Position Hooklying Comments strap around distal thighs PT-OP-S Aquatic Treatment Start: 07/15/21 16:54 Freq: Status: Active Protocol: Document 02/25/22 15:03 BRET (Rec: 02/25/22 15:17 LJ [id number]) Aquatics Treatment Pool Entry/Exit Pool Entry/Exit Method Stairs Assistance Independent Water Walking [place] March Water Level Chest Level Level of Assistance Independent Marching Water Level Chest Level Sideways Water Level Chest Level Comments lg step over Backwards Water Level Chest Level Level of Assistance Standby Assistance Forwards Water Level Chest Level Lower Extremity Exercises squats Body Position Standing Water Level Waist Level Reps/Duration 10 B Comments single leg 4 way hip Details min UE support Body Position Standing Water Level Waist Level Equipment Resistance Fins Reps/Duration 10 x2 ea B Comments cues for posture and increased effort Lower Extremity Stretches DKTC/SKTC Details SKTC Body Position Standing Water Level Chest Level Reps/Duration 2x30 quads, HS, hip flexors Equipment Small Noodle Reps/Duration 2x30 each [place] Activities Other Activities traction with occasional bicycling intermittently Equipment #5 B, blue float Duration 22 min Manual Techniques Aquatic Massage AquaStretch for hips and low back PT-OP-T Assessment and Plan Start: 07/15/21 16:54 Freq: Status: Active Protocol: Document 02/25/22 15:03 BRET (Rec: 02/25/22 15:17 [id number]) Physical Therapy Assessment Goals weakness Impairment LE and core muscle weakness limiting function [facility] Goal (LTG) Patient will test at least 4+/ 5 all LE and trunk muscle groups to allow him to return to prior level of function. Will be independent and compliant with progressive HEP and aquatic exercise program. LTG Duration 03/09/22 balance Impairment diminished balance scoring in moderate fall risk category Gas Appliance Installer Goal (LTG) Improve balance with patient testing in low fall risk category on Colon Balance test and TUG test for improved safety and decreased risk of injury LTG Duration 03/09/22 walk Impairment pt uses 4ww for all gait Short Term Goal (STG) pt will be able to walk with 2 hiking poles within home distance 10/13/21: goal met Gas Appliance Installer Goal (LTG) pt will be able to walk with 2 hiking poles at home and community 10/13/21: goal met at home, still mostly uses 4WW in community 01/07/22: patient able to ambulate with trekking poles but for only short distance community ambulation and with exess forward trunk flexion. Updated goal: Patient will be able to ambulate safely in the home without assistive device and for 15 minutes outdoors/ community with improved postural alignment LTG Duration 03/09/22 hip angle Impairment pt has a 28 degrees hip flexion angle in standing Short Term Goal (STG) pt will show improved lumbar mobility and tolerance for WB activities will be able to stand with <25 degrees hip flexion. 10/13/21: goal met Gas Appliance Installer Goal (LTG) pt will show improved lumbar mobility and tolerance for WB activities who will be able to stand with <25 degrees hip flexion. 01/07/22: goal progress LTG Duration 03/09/22 Owestry Impairment pt scores 56 on Oswestry disability index score Short Term Goal (STG) pt will show improved overall mobility and strength by scoring <50 on Owestry 12/29/21: goal achieved. STG Duration goal met Gas Appliance Installer Goal (LTG) Patient will score less then 40 on Oswestry disability index score as measure of decreased pain and improved activity tolerance 12/29/21: goal progress LTG Duration 03/09/22 Progress Towards Goals Progress Towards Goals Slow Progress due to Activity Tolerance Assessment Summary Assessment Exercises were kept at lower intensity focusuing on core stabilization and hip/low back mobility and traction. Pt encouraged to use bike at home but reported he can experience prostrate bleeding with too much pressure on perineum so is reluctant to use bike. Encouraged to use either ice or heat at home after session. He did not finish session with swimming as he ususally does. Physical Therapy Plan Frequency and Duration Frequency of Treatment 2x/Week Duration of Treatment 8 wks Plan of Care Start Date 01/05/22 Plan of Care End Date 03/09/22 Therapeutic Interventions Therapeutic Interventions Aquatic Therapy,Balance Training,Gait Training,Home Exercise Program,Joint Mobilizations,Manual Therapy, Neuromuscular Re-education, Patient/Caregiver Education, Self-Care/Home Management,Soft Tissue Mobilization,Taping, Therapeutic Activities, Therapeutic Exercises Modalities Cold Pack/Ice Massage,Electric Stimulation,Hot Packs, Infrared Therapy,Paraffin Bath ,Traction- Mechanical, Ultrasound Next Visit Focus/Plan Next Note Type Treatment Note Next Visit Plan Continue combination of land and aquatic-based PT for strengthening, gait training, balance, core strengthening and stabilization, manual therapy and modalities as needed for pain
--- NOTE | 2022-03-04 14:45 | PT.OTN ---
Current Diagnoses Spondylosis without myelopathy or radiculopathy, lumbar region (02/25/22) Physical Therapy Treatment Note PT-OP-A Visit Information Start: 07/15/21 16:54 Freq: Status: Active Protocol: Document 03/04/22 14:36 BRET (Rec: 03/04/22 14:45 LJ [id number]) Out-Patient Physical Therapy Visit Information Visit Information Visit Type Aquatic Treatment Note Visit Start Time 11:45 Visit Stop Time 12:30 Total Visit Minutes 45 Visit Number Number of RIB TRIM SEPARATOR Visits 2 PT-OP-B Current Condition Start: 07/15/21 16:54 Freq: Status: Active Protocol: Document 07/15/21 16:54 HH (Rec: 07/15/21 17:27 HH [id number]) Current Condition History of Current Condition Onset Date 2019 Current Complaints chronic back pain, weakness, difficulty in walking History of Current Condition Toribio is a 71 yo returning patient here for his debilitating chronic LBP. He had L4-L5 microdisectomy last year for his L4L5 ruptured disc. He then had significant loss of mobility and strength who now uses 4WW for all mobility. He bascially cannot stand straight and lay in prone position. He walks with a flexed posture to alleviate his pain. He saw his surgeon 2 months ago and did not recommend further back surgery. He had a course of PT with me but only limited progress (able to use hiking sticks to walk at one point). He has been going to the pool for water walking, mobility exercises and has been helpful for his strnegth and balance. He would like to do PT again to participate both land and aquative therapy. Personal Factors Other Personal Factors That May Effect overweight Therapy/Recovery previous heart attack CABG placement chronic back pain PT-OP-C Subjective Start: 07/15/21 16:54 Freq: Status: Active Protocol: Document 03/04/22 14:36 BRET (Rec: 03/04/22 14:45 LJ [id number]) OP-PT Subjective Patient Comments Patient Comments Pt reports has been in hospital for 6 days and he has been spending most of his time there and has not done any exercise all week. States his low back is sore PT-OP-D Balance Start: 07/15/21 16:54 Freq: Status: Active Protocol: Document 07/15/21 16:54 HH (Rec: 07/15/21 17:27 [id number]) Balance Tests Single Limb Standing Single Limb- Right unable Single Limb- Left unable PT-OP-G Mobility & Gait Start: 07/15/21 16:54 Freq: Status: Active Protocol: Document 07/15/21 16:54 HH (Rec: 07/15/21 17:27 [id number]) OP Mobility Evaluation Bed Mobility Supine to and from Sit log roll method OP Gait Assessment Gait Gait Assistance Required: Independent Assistive Devices Assistive Device 4 Wheeled Walker Gait Deviations General Gait Pattern Flexed Trunk Factors Limiting Gait Function Factors Limiting Gait Function Limited Range of Motion,Pain Comments Gait Comments pt walks wth a significant flexed posture with a hyperextended lumbar spine. He often has to stop to keep his walker close to his body. PT-OP-H Neuro Start: 07/15/21 16:54 Freq: Status: Active Protocol: Document 07/15/21 16:54 HH (Rec: 07/15/21 17:27 [id number]) Sensation Evaluation Gross Sensation Gross Sensation WNL Deep Tendon Reflex & Clonus Assessment Deep Tendon Reflex Bilateral Achilles Deep Tendon Reflex 2+ Normal Right Patellar Deep Tendon Reflex 2+ Normal Left Patellar Deep Tendon Reflex 0 Absent PT-OP-J Posture/Palpation/Skin Start: 07/15/21 16:54 Freq: Status: Active Protocol: Document 07/15/21 16:54 HH (Rec: 07/15/21 17:27 [id number]) Posture Evaluation Position Standing T-Spine Posture Increased Kyphosis L-Spine Posture Increased Lordosis,Flexed Hip Posture (L) Flexed,(R) Flexed Knee Posture (L) Excess Flexion,(R) Excess Flexion PT-OP-K Range of Motion Start: 07/15/21 16:54 Freq: Status: Active Protocol: Document 07/15/21 16:54 HH (Rec: 07/15/21 17:27 [id number]) Lumbar Spine Range of Motion Lumbar Spine Active Degrees Comments hip angle in standing (normal posture) = 28 degrees in flexion hip angle in standing ( extended posture) = 25 degrees in flexion, pain at low back. PT-OP-L Special Tests Start: 07/15/21 16:54 Freq: Status: Active Protocol: Document 07/15/21 16:54 HH (Rec: 07/15/21 17:27 [id number]) Special Tests Lumbar Spine Special Tests Slump Test Results -ve Straight Leg Raise Test Results -ve Comments no rad pain but extension pain with SLR on R. PT-OP-M Strength Start: 07/15/21 16:54 Freq: Status: Active Protocol: Document 07/15/21 16:54 HH (Rec: 07/15/21 17:27 [id number]) Hip Strength Hip Manual Muscle Testing Right Flexion (L2) 3+ Fair+ Extension (S1) 4- Good- Abduction 4- Good- Adduction 4- Good- Comments low back pain with SLR flexion Left Flexion (L2) 4- Good- Extension (S1) 4- Good- Abduction 4+ Good+ Adduction 4+ Good+ Knee Strength Knee Manual Muscle Testing Right Flexion (S2) 5 Normal Extension (L3) 5 Normal Left Flexion (S2) 5 Normal Extension (L3) 5 Normal Ankle/Foot Strength Ankle and Foot Manual Muscle Testing Right Dorsiflexion (L4) 5 Normal Plantarflexion (S1) 5 Normal Left Dorsiflexion (L4) 5 Normal Plantarflexion (S1) 5 Normal PT-OP-Q Treatments Start: 07/15/21 16:54 Freq: Status: Active Protocol: Document 02/24/22 10:37 SAK (Rec: 02/24/22 11:15 [facility] [id number]) Cardio Equipment Recumbent Stepper (Sci-Fit) Duration (Minutes) 7 Resistance 1 Seat Position 14 Other cues for neutral LE alignment, core stab Treadmill Duration (Minutes) 2 Speed 1.7 mph Incline 0 Other cues for upright posture, heavy use of UE Gym Equipment Sport Cord green Exercise Details fwd Cord/Resistance green Reps/Duration 10x Comments trekking pole Therapeutic Exercises Supine Exercises bridge Reps/Minutes 10x Sitting Exercises seated hip flex/rectus ab hali Reps/Minutes 10x Comments hands on thighs isometric Sitting Exercise Name core stab Comments emily hands on thighs, opp hand on thigh Standing Exercises shoulder extension Equipment Used L1 TB Reps/Minutes 10x Comments cues for neutral posture and core activation opp UE/LE lift Reps/Minutes 10x Comments UE support on wall, core activation PT-OP-R Modalities Start: 07/15/21 16:54 Freq: Status: Active Protocol: Document 02/24/22 10:37 SAK (Rec: 02/24/22 17:47 SAK [id number]) Hot Pack/Cold Pack Treatment MHP LS Location B LS Patient Position Hooklying Comments strap around distal thighs PT-OP-S Aquatic Treatment Start: 07/15/21 16:54 Freq: Status: Active Protocol: Document 03/04/22 14:36 LJ (Rec: 03/04/22 14:45 LJ [id number]) Aquatics Treatment Pool Entry/Exit Pool Entry/Exit Method Stairs Assistance Independent Water Walking [place] March Water Level Chest Level Level of Assistance Independent,Standby Assistance ,Verbal Cues Marching Water Level Chest Level Level of Assistance Independent,Standby Assistance ,Verbal Cues Comments tactile cueing at shoulders for improved posture Sideways Water Level Chest Level Comments lg step over Backwards Water Level Chest Level Level of Assistance Standby Assistance,Verbal Cues Comments tactile cueing at shoulders for improved posture Forwards Water Level Chest Level Level of Assistance Standby Assistance,Verbal Cues Comments tactile cueing at shoulders for improved posture Lower Extremity Exercises hip ABD Body Position Standing Water Level Waist Level Equipment stretch cords Reps/Duration 2x 8 B deep kicks Details braced on steps Body Position Prone Water Level Waist Level Equipment Resistance Fins Reps/Duration 3x 30 kick back Details facing wall Body Position Standing Water Level Waist Level Equipment stretch cords Reps/Duration 2x [address] hip Details min UE support Body Position Standing Water Level Waist Level Reps/Duration 10 x2 ea B Comments cues for posture Lower Extremity Stretches DKTC/SKTC Details SKTC Body Position Standing Water Level Chest Level Reps/Duration 2x30 quads, HS, hip flexors Equipment Small Noodle Reps/Duration 2x30 each Spinal Exercises wall squat DLS Reps/Duration 6 min Comments Core engagement against wall, emily and unil UE mvmts for challenge trunk rotation Body Position Standing Water Level Chest Level Comments used as stretch-bilateral rotation with overhead reach for fascial movemenb Balance step over boxes Reps/Duration 5x Comments hh on wall step up on boxes Details forward and side Water Level Chest Level Reps/Duration 10 B Comments slow motion to prevent plopping OFF STEP [place] Activities Other Activities traction with occasional bicycling intermittently Equipment #5 B, blue float Duration 15 PT-OP-T Assessment and Plan Start: 07/15/21 16:54 Freq: Status: Active Protocol: Document 03/04/22 14:36 BRET (Rec: 03/04/22 14:45 BRET [id number]) Physical Therapy Assessment Rehab Potential Rehabilitation Potential Fair Evaluation Complexity Number of Personal Factors/Comorbidities 3 or More Number of Body Systems Impaired 3 Clinical Presentation at Evaluation Stable Impairments Impairments Activity Tolerance,Balance, Functional Activities, Functional Mobility,Gait,Pain, Posture,ROM,Soft Tissue Mobility,Strength,Transfers Goals weakness Impairment LE and core muscle weakness limiting function Assisted Goal (LTG) Patient will test at least 4+/ 5 all LE and trunk muscle groups to allow him to return to prior level of function. Will be independent and compliant with progressive HEP and aquatic exercise program. LTG Duration 03/09/22 balance Impairment diminished balance scoring in moderate fall risk category Tableau Analyst Goal (LTG) Improve balance with patient testing in low fall risk category on Colon Balance test and TUG test for improved safety and decreased risk of injury LTG Duration 03/09/22 walk Impairment pt uses 4ww for all gait Short Term Goal (STG) pt will be able to walk with 2 hiking poles within home distance 10/13/21: goal met Tableau Analyst Goal (LTG) pt will be able to walk with 2 hiking poles at home and community 10/13/21: goal met at home, still mostly uses 4WW in community 01/07/22: patient able to ambulate with trekking poles but for only short distance community ambulation and with exess forward trunk flexion. Updated goal: Patient will be able to ambulate safely in the home without assistive device and for 15 minutes outdoors/ community with improved postural alignment LTG Duration 03/09/22 hip angle Impairment pt has a 28 degrees hip flexion angle in standing Short Term Goal (STG) pt will show improved lumbar mobility and tolerance for WB activities will be able to stand with <25 degrees hip flexion. 10/13/21: goal met Assisted Goal (LTG) pt will show improved lumbar mobility and tolerance for WB activities who will be able to stand with <25 degrees hip flexion. 01/07/22: goal progress LTG Duration 03/09/22 Owestry Impairment pt scores 56 on Oswestry disability index score Short Term Goal (STG) pt will show improved overall mobility and strength by scoring <50 on Owestry 12/29/21: goal achieved. STG Duration goal met Assisted Goal (LTG) Patient will score less then 40 on Oswestry disability index score as measure of decreased pain and improved activity tolerance 12/29/21: goal progress LTG Duration 03/09/22 Progress Towards Goals Progress Towards Goals Slow Progress due to Activity Tolerance Assessment Summary Assessment Exercises were kept at lower intensity focusing on core stabilization, posture, and hip/low back mobility and traction. Physical Therapy Plan Frequency and Duration Frequency of Treatment 2x/Week Duration of Treatment 8 wks Plan of Care Start Date 01/05/22 Plan of Care End Date 03/09/22 Therapeutic Interventions Therapeutic Interventions Aquatic Therapy,Balance Training,Gait Training,Home Exercise Program,Joint Mobilizations,Manual Therapy, Neuromuscular Re-education, Patient/Caregiver Education, Self-Care/Home Management,Soft Tissue Mobilization,Taping, Therapeutic Activities, Therapeutic Exercises Modalities Cold Pack/Ice Massage,Electric Stimulation,Hot Packs, Infrared Therapy,Paraffin Bath ,Traction- Mechanical, Ultrasound Next Visit Focus/Plan Next Note Type Treatment Note Next Visit Plan Continue combination of land and aquatic-based PT for strengthening, gait training, balance, core strengthening and stabilization, manual therapy and modalities as needed for pain
--- NOTE | 2022-03-11 15:04 | PT.OTN ---
Current Diagnoses Spondylosis without myelopathy or radiculopathy, lumbar region (03/11/22) Physical Therapy Treatment Note PT-OP-A Visit Information Start: 07/15/21 16:54 Freq: Status: Active Protocol: Document 03/11/22 14:49 BRET (Rec: 03/11/22 15:04 LJ [id number]) Out-Patient Physical Therapy Visit Information Visit Information Visit Type Aquatic Treatment Note Visit Start Time 11:45 Visit Stop Time 12:30 Total Visit Minutes 45 Visit Number Number of STUDENT UNION CONSULTANT Visits 3 PT-OP-B Current Condition Start: 07/15/21 16:54 Freq: Status: Active Protocol: Document 07/15/21 16:54 HH (Rec: 07/15/21 17:27 HH [id number]) Current Condition History of Current Condition Onset Date 2019 Current Complaints chronic back pain, weakness, difficulty in walking History of Current Condition Toribio is a 71 yo returning patient here for his debilitating chronic LBP. He had L4-L5 microdisectomy last year for his L4L5 ruptured disc. He then had significant loss of mobility and strength who now uses 4WW for all mobility. He bascially cannot stand straight and lay in prone position. He walks with a flexed posture to alleviate his pain. He saw his surgeon 2 months ago and did not recommend further back surgery. He had a course of PT with me but only limited progress (able to use hiking sticks to walk at one point). He has been going to the pool for water walking, mobility exercises and has been helpful for his strnegth and balance. He would like to do PT again to participate both land and aquative therapy. Personal Factors Other Personal Factors That May Effect overweight Therapy/Recovery previous heart attack CABG placement chronic back pain PT-OP-C Subjective Start: 07/15/21 16:54 Freq: Status: Active Protocol: Document 03/11/22 14:49 BRET (Rec: 03/11/22 15:04 LJ [id number]) OP-PT Subjective Patient Comments Patient Comments Pt states his is not in [place] at another [facility]. He has been coming to the pool consistently throughout the week to water walk. States he would like to swim for a bit this session. PT-OP-D Balance Start: 07/15/21 16:54 Freq: Status: Active Protocol: Document 07/15/21 16:54 (Rec: 07/15/21 17:27 [id number]) Balance Tests Single Limb Standing Single Limb- Right unable Single Limb- Left unable PT-OP-G Mobility & Gait Start: 07/15/21 16:54 Freq: Status: Active Protocol: Document 07/15/21 16:54 HH (Rec: 07/15/21 17:27 [id number]) OP Mobility Evaluation Bed Mobility Supine to and from Sit log roll method OP Gait Assessment Gait Gait Assistance Required: Independent Assistive Devices Assistive Device 4 Wheeled Walker Gait Deviations General Gait Pattern Flexed Trunk Factors Limiting Gait Function Factors Limiting Gait Function Limited Range of Motion,Pain Comments Gait Comments pt walks wth a significant flexed posture with a hyperextended lumbar spine. He often has to stop to keep his walker close to his body. PT-OP-H Neuro Start: 07/15/21 16:54 Freq: Status: Active Protocol: Document 07/15/21 16:54 HH (Rec: 07/15/21 17:27 [id number]) Sensation Evaluation Gross Sensation Gross Sensation WNL Deep Tendon Reflex & Clonus Assessment Deep Tendon Reflex Bilateral Achilles Deep Tendon Reflex 2+ Normal Right Patellar Deep Tendon Reflex 2+ Normal Left Patellar Deep Tendon Reflex 0 Absent PT-OP-J Posture/Palpation/Skin Start: 07/15/21 16:54 Freq: Status: Active Protocol: Document 07/15/21 16:54 HH (Rec: 07/15/21 17:27 [id number]) Posture Evaluation Position Standing T-Spine Posture Increased Kyphosis L-Spine Posture Increased Lordosis,Flexed Hip Posture (L) Flexed,(R) Flexed Knee Posture (L) Excess Flexion,(R) Excess Flexion PT-OP-K Range of Motion Start: 07/15/21 16:54 Freq: Status: Active Protocol: Document 07/15/21 16:54 (Rec: 07/15/21 17:27 [id number]) Lumbar Spine Range of Motion Lumbar Spine Active Degrees Comments hip angle in standing (normal posture) = 28 degrees in flexion hip angle in standing ( extended posture) = 25 degrees in flexion, pain at low back. PT-OP-L Special Tests Start: 07/15/21 16:54 Freq: Status: Active Protocol: Document 07/15/21 16:54 (Rec: 07/15/21 17:27 [id number]) Special Tests Lumbar Spine Special Tests Slump Test Results -ve Straight Leg Raise Test Results -ve Comments no rad pain but extension pain with SLR on R. PT-OP-M Strength Start: 07/15/21 16:54 Freq: Status: Active Protocol: Document 07/15/21 16:54 (Rec: 07/15/21 17:27 [id number]) Hip Strength Hip Manual Muscle Testing Right Flexion (L2) 3+ Fair+ Extension (S1) 4- Good- Abduction 4- Good- Adduction 4- Good- Comments low back pain with SLR flexion Left Flexion (L2) 4- Good- Extension (S1) 4- Good- Abduction 4+ Good+ Adduction 4+ Good+ Knee Strength Knee Manual Muscle Testing Right Flexion (S2) 5 Normal Extension (L3) 5 Normal Left Flexion (S2) 5 Normal Extension (L3) 5 Normal Ankle/Foot Strength Ankle and Foot Manual Muscle Testing Right Dorsiflexion (L4) 5 Normal Plantarflexion (S1) 5 Normal Left Dorsiflexion (L4) 5 Normal Plantarflexion (S1) 5 Normal PT-OP-Q Treatments Start: 07/15/21 16:54 Freq: Status: Active Protocol: Document 02/24/22 10:37 [facility] (Rec: 02/24/22 11:15 [facility] [id number]) Cardio Equipment Recumbent Stepper (Sci-Fit) Duration (Minutes) 7 Resistance 1 Seat Position 14 Other cues for neutral LE alignment, core stab Treadmill Duration (Minutes) 2 Speed 1.7 mph Incline 0 Other cues for upright posture, heavy use of UE Gym Equipment Sport Cord green Exercise Details fwd Cord/Resistance green Reps/Duration 10x Comments trekking pole Therapeutic Exercises Supine Exercises bridge Reps/Minutes 10x Sitting Exercises seated hip flex/rectus ab hali Reps/Minutes 10x Comments hands on thighs isometric Sitting Exercise Name core stab Comments emily hands on thighs, opp hand on thigh Standing Exercises shoulder extension Equipment Used L1 TB Reps/Minutes 10x Comments cues for neutral posture and core activation opp UE/LE lift Reps/Minutes 10x Comments UE support on wall, core activation PT-OP-R Modalities Start: 07/15/21 16:54 Freq: Status: Active Protocol: Document 02/24/22 10:37 SAK (Rec: 02/24/22 17:47 SAK [id number]) Hot Pack/Cold Pack Treatment MHP LS Location B LS Patient Position Hooklying Comments strap around distal thighs PT-OP-S Aquatic Treatment Start: 07/15/21 16:54 Freq: Status: Active Protocol: Document 03/11/22 14:49 LJ (Rec: 03/11/22 15:04 LJ [id number]) Aquatics Treatment Pool Entry/Exit Pool Entry/Exit Method Stairs Assistance Independent Water Walking forward and side walk with swim fins Water Level Chest Level Walking Equipment swim fins Comments 4 laps circumduction to tandem Water Level Chest Level Level of Assistance Standby Assistance stop start jogging Water Level Chest Level Level of Assistance Verbal Cues stop/start with direction change Water Level Chest Level Comments 2 min [place] March Water Level Chest Level Level of Assistance Independent,Standby Assistance ,Verbal Cues Marching Water Level Chest Level Level of Assistance Independent,Standby Assistance ,Verbal Cues Comments tactile cueing at shoulders for improved posture Sideways Water Level Chest Level Comments lg step over Backwards Water Level Chest Level Level of Assistance Standby Assistance,Verbal Cues Comments tactile cueing at shoulders for improved posture Forwards Water Level Chest Level Level of Assistance Standby Assistance,Verbal Cues Comments tactile cueing at shoulders for improved posture Lower Extremity Exercises hip thrust Body Position Standing Water Level Waist Level Equipment stretch cord with bar Reps/Duration 18 deep kicks Details braced on steps Body Position Prone Water Level Waist Level Equipment Resistance Fins Reps/Duration 3x 30 kick back Details facing wall Body Position Standing Water Level Waist Level Equipment stretch cords Reps/Duration 2x 8 B Lower Extremity Stretches quads, HS, hip flexors Equipment Small Noodle Reps/Duration 2x30 each Upper Extremity Exercises chest press Body Position Standing Water Level Waist Level Equipment cords Reps/Duration 15 Comments foot braced on wall rows Body Position Standing Water Level Chest Level Equipment cords Reps/Duration 30 flex/ext Body Position Standing Water Level Chest Level Equipment cords Reps/Duration 15 Spinal Exercises trunk rotation Body Position Standing Water Level Chest Level Reps/Duration 10 b [place] Activities Other Activities traction with occasional bicycling intermittently Equipment #5 B, blue float Duration 10 Swim Strokes Backstroke Equipment Fins Other Equipment Used noodle float under arms Laps/Duration 10m x 2 Comments butterfly arms kick on back Other Equipment Used fins Laps/Duration 15 m x 6 PT-OP-T Assessment and Plan Start: 07/15/21 16:54 Freq: Status: Active Protocol: Document 03/11/22 14:49 BRET (Rec: 03/11/22 15:04 BRET [id number]) Physical Therapy Assessment Rehab Potential Rehabilitation Potential Fair Evaluation Complexity Number of Personal Factors/Comorbidities 3 or More Number of Body Systems Impaired 3 Clinical Presentation at Evaluation Stable Impairments Impairments Activity Tolerance,Balance, Functional Activities, Functional Mobility,Gait,Pain, Posture,ROM,Soft Tissue Mobility,Strength,Transfers Goals weakness Impairment LE and core muscle weakness limiting function Custodial Goal (LTG) Patient will test at least 4+/ 5 all LE and trunk muscle groups to allow him to return to prior level of function. Will be independent and compliant with progressive HEP and aquatic exercise program. LTG Duration 03/09/22 balance Impairment diminished balance scoring in moderate fall risk category Box Folding Machine Operator Goal (LTG) Improve balance with patient testing in low fall risk category on Colon Balance test and TUG test for improved safety and decreased risk of injury LTG Duration 03/09/22 walk Impairment pt uses 4ww for all gait Short Term Goal (STG) pt will be able to walk with 2 hiking poles within home distance 10/13/21: goal met Custodial Goal (LTG) pt will be able to walk with 2 hiking poles at home and community 10/13/21: goal met at home, still mostly uses 4WW in community 01/07/22: patient able to ambulate with trekking poles but for only short distance community ambulation and with exess forward trunk flexion. Updated goal: Patient will be able to ambulate safely in the home without assistive device and for 15 minutes outdoors/ community with improved postural alignment LTG Duration 03/09/22 hip angle Impairment pt has a 28 degrees hip flexion angle in standing Short Term Goal (STG) pt will show improved lumbar mobility and tolerance for WB activities will be able to stand with <25 degrees hip flexion. 10/13/21: goal met Custodial Goal (LTG) pt will show improved lumbar mobility and tolerance for WB activities who will be able to stand with <25 degrees hip flexion. 01/07/22: goal progress LTG Duration 03/09/22 Owestry Impairment pt scores 56 on Oswestry disability index score Short Term Goal (STG) pt will show improved overall mobility and strength by scoring <50 on Owestry 12/29/21: goal achieved. STG Duration goal met Box Folding Machine Operator Goal (LTG) Patient will score less then 40 on Oswestry disability index score as measure of decreased pain and improved activity tolerance 12/29/21: goal progress LTG Duration 03/09/22 Progress Towards Goals Progress Towards Goals Slow Progress due to Activity Tolerance Assessment Summary Assessment Pt able to increase PRE level with most exercises this session. Stated finninf on his back feels good. His activity tolerance is improving as demonstrated by his being in the water for over an hour (he arrived early) and exercises the entire time. Physical Therapy Plan Frequency and Duration Frequency of Treatment 2x/Week Duration of Treatment 8 wks Plan of Care Start Date 01/05/22 Plan of Care End Date 03/09/22 Therapeutic Interventions Therapeutic Interventions Aquatic Therapy,Balance Training,Gait Training,Home Exercise Program,Joint Mobilizations,Manual Therapy, Neuromuscular Re-education, Patient/Caregiver Education, Self-Care/Home Management,Soft Tissue Mobilization,Taping, Therapeutic Activities, Therapeutic Exercises Modalities Cold Pack/Ice Massage,Electric Stimulation,Hot Packs, Infrared Therapy,Paraffin Bath ,Traction- Mechanical, Ultrasound Next Visit Focus/Plan Next Note Type Treatment Note Next Visit Plan Continue combination of land and aquatic-based PT for strengthening, gait training, balance, core strengthening and stabilization, manual therapy and modalities as needed for pain. Increase distance for backstroke and trial mask with snorkel when he brings his new set to therapy. May need to try different types of floatation for sucessful and painfree front crawl stroke.
--- NOTE | 2022-04-01 08:05 | PT.OTRE ---
Current Diagnoses Spondylosis without myelopathy or radiculopathy, lumbar region (04/01/22) Past Medical History (Last Updated 09/23/21 @ 15:59 by Benjamin Aguilera DO) Blood clotting disorder BPH (benign prostatic hyperplasia) CAD (coronary artery disease) History of pulmonary embolism Hyperlipidemia Obesity Surgical History (Last Updated 04/23/20 @ 15:37 by Benjamin Aguilera DO) History of total left knee replacement Visit Care Team Role Provider Type Benajmin Aguilera DO Primary Care Provider Physician Specialty: Family Practice Address: [address] [place] [address], [id number] Email: [email or web address] Robin Lee MD Family Provider Physician Specialty: Internal Medicine Address: [address] [place] [address], [address] Email: [email or web address] Attending Provider Non-Staff Referring Provider Specialty: Medical Address: [address] [place] [address], [address] [place] [address], [facility] Email: Physical Therapy Re-Evaluation PT-OP-A Visit Information Start: 07/15/21 16:54 Freq: Status: Active Protocol: Document 04/01/22 15:01 LJ (Rec: 04/01/22 15:15 LJ [id number]) Out-Patient Physical Therapy Visit Information Visit Information Visit Type Aquatic Treatment Note Visit Start Time 12:30 Visit Stop Time 01:15 Total Visit Minutes 45 Visit Number 90 Number of FLOATING OPERATOR Visits 4 PT-OP-B Current Condition Start: 07/15/21 16:54 Freq: Status: Active Protocol: Document 07/15/21 16:54 HH (Rec: 07/15/21 17:27 HH [id number]) Current Condition History of Current Condition Onset Date 2019 Current Complaints chronic back pain, weakness, difficulty in walking History of Current Condition Toribio is a 71 yo returning patient here for his debilitating chronic LBP. He had L4-L5 microdisectomy last year for his L4L5 ruptured disc. He then had significant loss of mobility and strength who now uses 4WW for all mobility. He bascially cannot stand straight and lay in prone position. He walks with a flexed posture to alleviate his pain. He saw his surgeon 2 months ago and did not recommend further back surgery. He had a course of PT with me but only limited progress (able to use hiking sticks to walk at one point). He has been going to the pool for water walking, mobility exercises and has been helpful for his strnegth and balance. He would like to do PT again to participate both land and aquative therapy. Personal Factors Other Personal Factors That May Effect overweight Therapy/Recovery previous heart attack CABG placement chronic back pain PT-OP-C Subjective Start: 07/15/21 16:54 Freq: Status: Active Protocol: Document 04/01/22 15:01 LJ (Rec: 04/01/22 15:15 LJ [id number]) OP-PT Subjective Patient Comments Patient Comments Pt reports he feels like he isn't able to remember anything anymore. His has been in the hospital for several weeks on palliative care and he feels like he can' t think anymore. He and dtr going to home later today to look into burial costs. Physically he states he hasn't experienced much change. Very tired from traveling back and forth visiting at [facility]. PT-OP-D Balance Start: 07/15/21 16:54 Freq: Status: Active Protocol: Document 07/15/21 16:54 HH (Rec: 07/15/21 17:27 HH [id number]) Balance Tests Single Limb Standing Single Limb- Right unable Single Limb- Left unable PT-OP-G Mobility & Gait Start: 07/15/21 16:54 Freq: Status: Active Protocol: Document 07/15/21 16:54 HH (Rec: 07/15/21 17:27 HH [id number]) OP Mobility Evaluation Bed Mobility Supine to and from Sit log roll method OP Gait Assessment Gait Gait Assistance Required: Independent Assistive Devices Assistive Device 4 Wheeled Walker Gait Deviations General Gait Pattern Flexed Trunk Factors Limiting Gait Function Factors Limiting Gait Function Limited Range of Motion,Pain Comments Gait Comments pt walks wth a significant flexed posture with a hyperextended lumbar spine. He often has to stop to keep his walker close to his body. PT-OP-H Neuro Start: 07/15/21 16:54 Freq: Status: Active Protocol: Document 07/15/21 16:54 HH (Rec: 07/15/21 17:27 [id number]) Sensation Evaluation Gross Sensation Gross Sensation WNL Deep Tendon Reflex & Clonus Assessment Deep Tendon Reflex Bilateral Achilles Deep Tendon Reflex 2+ Normal Right Patellar Deep Tendon Reflex 2+ Normal Left Patellar Deep Tendon Reflex 0 Absent PT-OP-J Posture/Palpation/Skin Start: 07/15/21 16:54 Freq: Status: Active Protocol: Document 07/15/21 16:54 HH (Rec: 07/15/21 17:27 [id number]) Posture Evaluation Position Standing T-Spine Posture Increased Kyphosis L-Spine Posture Increased Lordosis,Flexed Hip Posture (L) Flexed,(R) Flexed Knee Posture (L) Excess Flexion,(R) Excess Flexion PT-OP-K Range of Motion Start: 07/15/21 16:54 Freq: Status: Active Protocol: Document 07/15/21 16:54 HH (Rec: 07/15/21 17:27 [id number]) Lumbar Spine Range of Motion Lumbar Spine Active Degrees Comments hip angle in standing (normal posture) = 28 degrees in flexion hip angle in standing ( extended posture) = 25 degrees in flexion, pain at low back. PT-OP-L Special Tests Start: 07/15/21 16:54 Freq: Status: Active Protocol: Document 07/15/21 16:54 HH (Rec: 07/15/21 17:27 [id number]) Special Tests Lumbar Spine Special Tests Slump Test Results -ve Straight Leg Raise Test Results -ve Comments no rad pain but extension pain with SLR on R. PT-OP-M Strength Start: 07/15/21 16:54 Freq: Status: Active Protocol: Document 07/15/21 16:54 HH (Rec: 07/15/21 17:27 [id number]) Hip Strength Hip Manual Muscle Testing Right Flexion (L2) 3+ Fair+ Extension (S1) 4- Good- Abduction 4- Good- Adduction 4- Good- Comments low back pain with SLR flexion Left Flexion (L2) 4- Good- Extension (S1) 4- Good- Abduction 4+ Good+ Adduction 4+ Good+ Knee Strength Knee Manual Muscle Testing Right Flexion (S2) 5 Normal Extension (L3) 5 Normal Left Flexion (S2) 5 Normal Extension (L3) 5 Normal Ankle/Foot Strength Ankle and Foot Manual Muscle Testing Right Dorsiflexion (L4) 5 Normal Plantarflexion (S1) 5 Normal Left Dorsiflexion (L4) 5 Normal Plantarflexion (S1) 5 Normal PT-OP-Q Treatments Start: 07/15/21 16:54 Freq: Status: Active Protocol: Document 02/24/22 10:37 SAK (Rec: 02/24/22 11:15 SAK [id number]) Cardio Equipment Recumbent Stepper (Sci-Fit) Duration (Minutes) 7 Resistance 1 Seat Position 14 Other cues for neutral LE alignment, core stab Treadmill Duration (Minutes) 2 Speed 1.7 mph Incline 0 Other cues for upright posture, heavy use of UE Gym Equipment Sport Cord green Exercise Details fwd Cord/Resistance green Reps/Duration 10x Comments trekking pole Therapeutic Exercises Supine Exercises bridge Reps/Minutes 10x Sitting Exercises seated hip flex/rectus ab hali Reps/Minutes 10x Comments hands on thighs isometric Sitting Exercise Name core stab Comments emily hands on thighs, opp hand on thigh Standing Exercises shoulder extension Equipment Used L1 TB Reps/Minutes 10x Comments cues for neutral posture and core activation opp UE/LE lift Reps/Minutes 10x Comments UE support on wall, core activation PT-OP-R Modalities Start: 07/15/21 16:54 Freq: Status: Active Protocol: Document 02/24/22 10:37 SAK (Rec: 02/24/22 17:47 SAK [id number]) Hot Pack/Cold Pack Treatment MHP LS Location B LS Patient Position Hooklying Comments strap around distal thighs PT-OP-T Assessment and Plan Start: 07/15/21 16:54 Freq: Status: Active Protocol: Document 04/01/22 15:01 BRET (Rec: 04/01/22 15:15 LJ [id number]) Physical Therapy Assessment Rehab Potential Rehabilitation Potential Fair Evaluation Complexity Number of Personal Factors/Comorbidities 3 or More Number of Body Systems Impaired 3 Clinical Presentation at Evaluation Stable Impairments Impairments Activity Tolerance,Balance, Functional Activities, Functional Mobility,Gait,Pain, Posture,ROM,Soft Tissue Mobility,Strength,Transfers Goals weakness Impairment LE and core muscle weakness limiting function Nursing Home Goal (LTG) Patient will test at least 4+/ 5 all LE and trunk muscle groups to allow him to return to prior level of function. Will be independent and compliant with progressive HEP and aquatic exercise program. LTG Duration 03/09/22 balance Impairment diminished balance scoring in moderate fall risk category Requirements Manager Goal (LTG) Improve balance with patient testing in low fall risk category on Colon Balance test and TUG test for improved safety and decreased risk of injury LTG Duration 03/09/22 walk Impairment pt uses 4ww for all gait Short Term Goal (STG) pt will be able to walk with 2 hiking poles within home distance 10/13/21: goal met Nursing Home Goal (LTG) pt will be able to walk with 2 hiking poles at home and community 10/13/21: goal met at home, still mostly uses 4WW in community 01/07/22: patient able to ambulate with trekking poles but for only short distance community ambulation and with exess forward trunk flexion. Updated goal: Patient will be able to ambulate safely in the home without assistive device and for 15 minutes outdoors/ community with improved postural alignment LTG Duration 03/09/22 hip angle Impairment pt has a 28 degrees hip flexion angle in standing Short Term Goal (STG) pt will show improved lumbar mobility and tolerance for WB activities will be able to stand with <25 degrees hip flexion. 10/13/21: goal met Nursing Home Goal (LTG) pt will show improved lumbar mobility and tolerance for WB activities who will be able to stand with <25 degrees hip flexion. 01/07/22: goal progress LTG Duration 03/09/22 Owestry Impairment pt scores 56 on Oswestry disability index score Short Term Goal (STG) pt will show improved overall mobility and strength by scoring <50 on Owestry 12/29/21: goal achieved. STG Duration goal met Requirements Manager Goal (LTG) Patient will score less then 40 on Oswestry disability index score as measure of decreased pain and improved activity tolerance 12/29/21: goal progress LTG Duration 03/09/22 Progress Towards Goals Progress Towards Goals Slow Progress due to Activity Tolerance Assessment Summary Assessment Pt able to increase PRE level with most exercises this session. Stated finninf on his back feels good. His activity tolerance is improving as demonstrated by his being in the water for over an hour (he arrived early) and exercises the entire time. Physical Therapy Plan Frequency and Duration Frequency of Treatment 2x/Week Duration of Treatment 8 wks Plan of Care Start Date 01/05/22 Plan of Care End Date 03/09/22 Therapeutic Interventions Therapeutic Interventions Aquatic Therapy,Balance Training,Gait Training,Home Exercise Program,Joint Mobilizations,Manual Therapy, Neuromuscular Re-education, Patient/Caregiver Education, Self-Care/Home Management,Soft Tissue Mobilization,Taping, Therapeutic Activities, Therapeutic Exercises Modalities Cold Pack/Ice Massage,Electric Stimulation,Hot Packs, Infrared Therapy,Paraffin Bath ,Traction- Mechanical, Ultrasound Next Visit Focus/Plan Next Note Type Treatment Note Next Visit Plan Continue combination of land and aquatic-based PT for strengthening, gait training, balance, core strengthening and stabilization, manual therapy and modalities as needed for pain. Increase distance for backstroke and trial mask with snorkel when he brings his new set to therapy. Pt to bring new snorkel to therapy next visit to trial front crawl stroke.
--- NOTE | 2022-04-01 12:30 | PT.OPPOC ---
Physical, Occupational & Speech Therapy At Current Diagnoses Spondylosis without myelopathy or radiculopathy, lumbar region (04/01/22) Visit Care Team Role Provider Type Benjamin Aguilera DO Primary Care Provider Physician Specialty: Family Practice Address: [address] [place] [address], [id number] Email: [email or web address] Robin Lee MD Family Provider Physician Specialty: Internal Medicine Address: [address] [place] [address], [address] Email: [email or web address] [email or web address] Knox Attending Provider Non-Staff Referring Provider Specialty: Medical Address: [address] [place] [address], [address], [facility] Email: Plan Of Care PT-OP-T Assessment and Plan Start: 07/15/21 16:54 Freq: Status: Active Protocol: Document 04/01/22 15:01 BRET (Rec: 04/01/22 15:15 BRET [id number]) Physical Therapy Assessment Rehab Potential Rehabilitation Potential Fair Evaluation Complexity Number of Personal Factors/Comorbidities 3 or More Number of Body Systems Impaired 3 Clinical Presentation at Evaluation Stable Impairments Impairments Activity Tolerance,Balance, Functional Activities, Functional Mobility,Gait,Pain, Posture,ROM,Soft Tissue Mobility,Strength,Transfers Goals weakness Impairment LE and core muscle weakness limiting function [facility]ci Goal (LTG) Patient will test at least 4+/ 5 all LE and trunk muscle groups to allow him to return to prior level of function. Will be independent and compliant with progressive HEP and aquatic exercise program. LTG Duration 03/09/22 balance Impairment diminished balance scoring in moderate fall risk category Circular Tank Cooper Goal (LTG) Improve balance with patient testing in low fall risk category on Colon Balance test and TUG test for improved safety and decreased risk of injury LTG Duration 03/09/22 walk Impairment pt uses 4ww for all gait Short Term Goal (STG) pt will be able to walk with 2 hiking poles within home distance 10/13/21: goal met Circular Tank Cooper Goal (LTG) pt will be able to walk with 2 hiking poles at home and community 10/13/21: goal met at home, still mostly uses 4WW in community 01/07/22: patient able to ambulate with trekking poles but for only short distance community ambulation and with exess forward trunk flexion. Updated goal: Patient will be able to ambulate safely in the home without assistive device and for 15 minutes outdoors/ community with improved postural alignment LTG Duration 03/09/22 hip angle Impairment pt has a 28 degrees hip flexion angle in standing Short Term Goal (STG) pt will show improved lumbar mobility and tolerance for WB activities will be able to stand with <25 degrees hip flexion. 10/13/21: goal met Fci Goal (LTG) pt will show improved lumbar mobility and tolerance for WB activities who will be able to stand with <25 degrees hip flexion. 01/07/22: goal progress LTG Duration 03/09/22 Owestry Impairment pt scores 56 on Oswestry disability index score Short Term Goal (STG) pt will show improved overall mobility and strength by scoring <50 on Owestry 12/29/21: goal achieved. STG Duration goal met Circular Tank Cooper Goal (LTG) Patient will score less then 40 on Oswestry disability index score as measure of decreased pain and improved activity tolerance 12/29/21: goal progress LTG Duration 03/09/22 Progress Towards Goals Progress Towards Goals Slow Progress due to Activity Tolerance Assessment Summary Assessment Pt able to increase PRE level with most exercises this session. Stated finninf on his back feels good. His activity tolerance is improving as demonstrated by his being in the water for over an hour (he arrived early) and exercises the entire time. Physical Therapy Plan Frequency and Duration Frequency of Treatment 2x/Week Duration of Treatment 8 wks Plan of Care Start Date 01/05/22 Plan of Care End Date 03/09/22 Therapeutic Interventions Therapeutic Interventions Aquatic Therapy,Balance Training,Gait Training,Home Exercise Program,Joint Mobilizations,Manual Therapy, Neuromuscular Re-education, Patient/Caregiver Education, Self-Care/Home Management,Soft Tissue Mobilization,Taping, Therapeutic Activities, Therapeutic Exercises Modalities Cold Pack/Ice Massage,Electric Stimulation,Hot Packs, Infrared Therapy,Paraffin Bath ,Traction- Mechanical, Ultrasound Next Visit Focus/Plan Next Note Type Treatment Note Next Visit Plan Continue combination of land and aquatic-based PT for strengthening, gait training, balance, core strengthening and stabilization, manual therapy and modalities as needed for pain. Increase distance for backstroke and trial mask with snorkel when he brings his new set to therapy. Pt to bring new snorkel to therapy next visit to trial front crawl stroke. Plan of Care Dates Plan of Care Start Date 01/05/22 Plan of Care End Date 03/09/22 Electronically Signed by: Kateryna Shaffer, PT 04/05/22 0806 If you are in agreement with this Plan of Care, please return a signed and dated copy. I have reviewed this Plan of Care and certify that the skilled therapy services above are required to meet the patient?s needs. Physician Signature Date Printed Name and Credentials Clinical Instructor Signature Printed Name and Credentials
--- NOTE | 2022-04-01 15:15 | PT.OTN ---
Current Diagnoses Spondylosis without myelopathy or radiculopathy, lumbar region (04/01/22) Physical Therapy Treatment Note PT-OP-A Visit Information Start: 07/15/21 16:54 Freq: Status: Active Protocol: Document 04/01/22 15:01 BRET (Rec: 04/01/22 15:15 LJ [id number]) Out-Patient Physical Therapy Visit Information Visit Information Visit Type Aquatic Treatment Note Visit Start Time 12:30 Visit Stop Time 01:15 Total Visit Minutes 45 Visit Number 90 Number of BRIAR CUTTER Visits 4 PT-OP-B Current Condition Start: 07/15/21 16:54 Freq: Status: Active Protocol: Document 07/15/21 16:54 HH (Rec: 07/15/21 17:27 HH [id number]) Current Condition History of Current Condition Onset Date 2019 Current Complaints chronic back pain, weakness, difficulty in walking History of Current Condition Toribio is a 71 yo returning patient here for his debilitating chronic LBP. He had L4-L5 microdisectomy last year for his L4L5 ruptured disc. He then had significant loss of mobility and strength who now uses 4WW for all mobility. He bascially cannot stand straight and lay in prone position. He walks with a flexed posture to alleviate his pain. He saw his surgeon 2 months ago and did not recommend further back surgery. He had a course of PT with me but only limited progress (able to use hiking sticks to walk at one point). He has been going to the pool for water walking, mobility exercises and has been helpful for his strnegth and balance. He would like to do PT again to participate both land and aquative therapy. Personal Factors Other Personal Factors That May Effect overweight Therapy/Recovery previous heart attack CABG placement chronic back pain PT-OP-C Subjective Start: 07/15/21 16:54 Freq: Status: Active Protocol: Document 04/01/22 15:01 BRET (Rec: 04/01/22 15:15 LJ [id number]) OP-PT Subjective Patient Comments Patient Comments Pt reports he feels like he isn't able to remember anything anymore. His has been in the hospital for several weeks on palliative care and he feels like he can' t think anymore. He and dtr going to home later today to look into burial costs. Physically he states he hasn't experienced much change. Very tired from traveling back and forth visiting at [facility]. PT-OP-D Balance Start: 07/15/21 16:54 Freq: Status: Active Protocol: Document 07/15/21 16:54 HH (Rec: 07/15/21 17:27 [id number]) Balance Tests Single Limb Standing Single Limb- Right unable Single Limb- Left unable PT-OP-G Mobility & Gait Start: 07/15/21 16:54 Freq: Status: Active Protocol: Document 07/15/21 16:54 HH (Rec: 07/15/21 17:27 [id number]) OP Mobility Evaluation Bed Mobility Supine to and from Sit log roll method OP Gait Assessment Gait Gait Assistance Required: Independent Assistive Devices Assistive Device 4 Wheeled Walker Gait Deviations General Gait Pattern Flexed Trunk Factors Limiting Gait Function Factors Limiting Gait Function Limited Range of Motion,Pain Comments Gait Comments pt walks wth a significant flexed posture with a hyperextended lumbar spine. He often has to stop to keep his walker close to his body. PT-OP-H Neuro Start: 07/15/21 16:54 Freq: Status: Active Protocol: Document 07/15/21 16:54 HH (Rec: 07/15/21 17:27 [id number]) Sensation Evaluation Gross Sensation Gross Sensation WNL Deep Tendon Reflex & Clonus Assessment Deep Tendon Reflex Bilateral Achilles Deep Tendon Reflex 2+ Normal Right Patellar Deep Tendon Reflex 2+ Normal Left Patellar Deep Tendon Reflex 0 Absent PT-OP-J Posture/Palpation/Skin Start: 07/15/21 16:54 Freq: Status: Active Protocol: Document 07/15/21 16:54 HH (Rec: 07/15/21 17:27 [id number]) Posture Evaluation Position Standing T-Spine Posture Increased Kyphosis L-Spine Posture Increased Lordosis,Flexed Hip Posture (L) Flexed,(R) Flexed Knee Posture (L) Excess Flexion,(R) Excess Flexion PT-OP-K Range of Motion Start: 07/15/21 16:54 Freq: Status: Active Protocol: Document 07/15/21 16:54 HH (Rec: 07/15/21 17:27 [id number]) Lumbar Spine Range of Motion Lumbar Spine Active Degrees Comments hip angle in standing (normal posture) = 28 degrees in flexion hip angle in standing ( extended posture) = 25 degrees in flexion, pain at low back. PT-OP-L Special Tests Start: 07/15/21 16:54 Freq: Status: Active Protocol: Document 07/15/21 16:54 HH (Rec: 07/15/21 17:27 HH [id number]) Special Tests Lumbar Spine Special Tests Slump Test Results -ve Straight Leg Raise Test Results -ve Comments no rad pain but extension pain with SLR on R. PT-OP-M Strength Start: 07/15/21 16:54 Freq: Status: Active Protocol: Document 07/15/21 16:54 HH (Rec: 07/15/21 17:27 HH [id number]) Hip Strength Hip Manual Muscle Testing Right Flexion (L2) 3+ Fair+ Extension (S1) 4- Good- Abduction 4- Good- Adduction 4- Good- Comments low back pain with SLR flexion Left Flexion (L2) 4- Good- Extension (S1) 4- Good- Abduction 4+ Good+ Adduction 4+ Good+ Knee Strength Knee Manual Muscle Testing Right Flexion (S2) 5 Normal Extension (L3) 5 Normal Left Flexion (S2) 5 Normal Extension (L3) 5 Normal Ankle/Foot Strength Ankle and Foot Manual Muscle Testing Right Dorsiflexion (L4) 5 Normal Plantarflexion (S1) 5 Normal Left Dorsiflexion (L4) 5 Normal Plantarflexion (S1) 5 Normal PT-OP-Q Treatments Start: 07/15/21 16:54 Freq: Status: Active Protocol: Document 02/24/22 10:37 [facility] (Rec: 02/24/22 11:15 [facility] [id number]) Cardio Equipment Recumbent Stepper (Sci-Fit) Duration (Minutes) 7 Resistance 1 Seat Position 14 Other cues for neutral LE alignment, core stab Treadmill Duration (Minutes) 2 Speed 1.7 mph Incline 0 Other cues for upright posture, heavy use of UE Gym Equipment Sport Cord green Exercise Details fwd Cord/Resistance green Reps/Duration 10x Comments trekking pole Therapeutic Exercises Supine Exercises bridge Reps/Minutes 10x Sitting Exercises seated hip flex/rectus ab hali Reps/Minutes 10x Comments hands on thighs isometric Sitting Exercise Name core stab Comments emily hands on thighs, opp hand on thigh Standing Exercises shoulder extension Equipment Used L1 TB Reps/Minutes 10x Comments cues for neutral posture and core activation opp UE/LE lift Reps/Minutes 10x Comments UE support on wall, core activation PT-OP-R Modalities Start: 07/15/21 16:54 Freq: Status: Active Protocol: Document 02/24/22 10:37 SAK (Rec: 02/24/22 17:47 SAK [id number]) Hot Pack/Cold Pack Treatment MHP LS Location B LS Patient Position Hooklying Comments strap around distal thighs PT-OP-S Aquatic Treatment Start: 07/15/21 16:54 Freq: Status: Active Protocol: Document 04/01/22 15:01 LJ (Rec: 04/01/22 15:15 LJ [id number]) Aquatics Treatment Pool Entry/Exit Pool Entry/Exit Method Stairs Assistance Independent Water Walking stop start jogging Water Level Chest Level Walking Equipment Ankle Floats Level of Assistance Verbal Cues Comments 4 min stop/start with direction change Water Level Chest Level Walking Equipment Ankle Floats Comments 4 min [place] March Water Level Chest Level Walking Equipment Ankle Floats Level of Assistance Verbal Cues Marching Water Level Chest Level Walking Equipment Ankle Floats Comments tactile cueing at shoulders for improved posture Backwards Water Level Chest Level Level of Assistance Standby Assistance,Verbal Cues Comments tactile cueing at shoulders for improved posture Lower Extremity Exercises deep kicks Details braced on steps Body Position Prone Water Level Waist Level Equipment Resistance Fins Reps/Duration 3x 10 SLS Body Position Standing Water Level Waist Level Equipment Ankle Floats Reps/Duration 2x 20-35 sec B Comments improvement 4 way hip Details no support Body Position Standing Water Level Waist Level Equipment Ankle Floats Reps/Duration 10 x2 ea B Comments cues for posture Lower Extremity Stretches DKTC/SKTC Details SKTC Body Position Standing Water Level Chest Level Reps/Duration 2x30 quads, HS, hip flexors Equipment Small Noodle Reps/Duration 2x30 each Comments gastrocs Upper Extremity Exercises chest press Body Position Standing Water Level Waist Level Equipment cords Reps/Duration 15 Comments foot braced on wall rows Body Position Standing Water Level Chest Level Equipment cords Reps/Duration 30 flex/ext Body Position Standing Water Level Chest Level Equipment cords Reps/Duration 15 HAB AD Body Position Standing Water Level Chest Level Equipment sm bells Reps/Duration 15 Tyler Activities Other Activities traction with occasional bicycling intermittently Equipment #5 B, blue float Duration 12 min Swim Strokes underwater breaststroke Laps/Duration 30M Comments breath hold-unable to lift or turn head for breathing PT-OP-T Assessment and Plan Start: 07/15/21 16:54 Freq: Status: Active Protocol: Document 04/01/22 15:01 BRET (Rec: 04/01/22 15:15 BERT [id number]) Physical Therapy Assessment Rehab Potential Rehabilitation Potential Fair Evaluation Complexity Number of Personal Factors/Comorbidities 3 or More Number of Body Systems Impaired 3 Clinical Presentation at Evaluation Stable Impairments Impairments Activity Tolerance,Balance, Functional Activities, Functional Mobility,Gait,Pain, Posture,ROM,Soft Tissue Mobility,Strength,Transfers Goals weakness Impairment LE and core muscle weakness limiting function Usp Goal (LTG) Patient will test at least 4+/ 5 all LE and trunk muscle groups to allow him to return to prior level of function. Will be independent and compliant with progressive HEP and aquatic exercise program. LTG Duration 03/09/22 balance Impairment diminished balance scoring in moderate fall risk category Usp Goal (LTG) Improve balance with patient testing in low fall risk category on Colon Balance test and TUG test for improved safety and decreased risk of injury LTG Duration 03/09/22 walk Impairment pt uses 4ww for all gait Short Term Goal (STG) pt will be able to walk with 2 hiking poles within home distance 10/13/21: goal met Usp Goal (LTG) pt will be able to walk with 2 hiking poles at home and community 10/13/21: goal met at home, still mostly uses 4WW in community 01/07/22: patient able to ambulate with trekking poles but for only short distance community ambulation and with exess forward trunk flexion. Updated goal: Patient will be able to ambulate safely in the home without assistive device and for 15 minutes outdoors/ community with improved postural alignment LTG Duration 03/09/22 hip angle Impairment pt has a 28 degrees hip flexion angle in standing Short Term Goal (STG) pt will show improved lumbar mobility and tolerance for WB activities will be able to stand with <25 degrees hip flexion. 10/13/21: goal met Usp Goal (LTG) pt will show improved lumbar mobility and tolerance for WB activities who will be able to stand with <25 degrees hip flexion. 01/07/22: goal progress LTG Duration 03/09/22 Owestry Impairment pt scores 56 on Oswestry disability index score Short Term Goal (STG) pt will show improved overall mobility and strength by scoring <50 on Owestry 12/29/21: goal achieved. STG Duration goal met [employer] Organist Goal (LTG) Patient will score less then 40 on Oswestry disability index score as measure of decreased pain and improved activity tolerance 12/29/21: goal progress LTG Duration 03/09/22 Progress Towards Goals Progress Towards Goals Slow Progress due to Activity Tolerance Assessment Summary Assessment Pt able to increase PRE level with most exercises this session. Stated finninf on his back feels good. His activity tolerance is improving as demonstrated by his being in the water for over an hour (he arrived early) and exercises the entire time. Physical Therapy Plan Frequency and Duration Frequency of Treatment 2x/Week Duration of Treatment 8 wks Plan of Care Start Date 01/05/22 Plan of Care End Date 03/09/22 Therapeutic Interventions Therapeutic Interventions Aquatic Therapy,Balance Training,Gait Training,Home Exercise Program,Joint Mobilizations,Manual Therapy, Neuromuscular Re-education, Patient/Caregiver Education, Self-Care/Home Management,Soft Tissue Mobilization,Taping, Therapeutic Activities, Therapeutic Exercises Modalities Cold Pack/Ice Massage,Electric Stimulation,Hot Packs, Infrared Therapy,Paraffin Bath ,Traction- Mechanical, Ultrasound Next Visit Focus/Plan Next Note Type Treatment Note Next Visit Plan Continue combination of land and aquatic-based PT for strengthening, gait training, balance, core strengthening and stabilization, manual therapy and modalities as needed for pain. Increase distance for backstroke and trial mask with snorkel when he brings his new set to therapy. Pt to bring new snorkel to therapy next visit to trial front crawl stroke.
--- NOTE | 2022-04-01 16:00 | PT.OPPOC ---
Physical, Occupational & Speech Therapy At [facility] Current Diagnoses Spondylosis without myelopathy or radiculopathy, lumbar region (04/01/22) Visit Care Team Role Provider Type Benjamin Aguilera DO Primary Care Provider Physician Specialty: Family Practice Address: [address] [place] [address], [address] Email: [email or web address] Robin Lee MD Family Provider Physician Specialty: Internal Medicine Address: [address] [place] [address], [address] Email: [email or web address] AMADA Knox Attending Provider Non-Staff Referring Provider Specialty: Medical Address: [address] [place] [address], [address], [facility] Email: Plan Of Care PT-OP-T Assessment and Plan Start: 07/15/21 16:54 Freq: Status: Active Protocol: Document 04/01/22 16:00 SAK (Rec: 04/05/22 08:05 SAK [id number]) Physical Therapy Assessment Impairments Impairments Activity Tolerance,Balance, Functional Activities, Functional Mobility,Gait,Pain, Posture,ROM,Soft Tissue Mobility,Strength,Transfers Goals weakness Impairment LE and core muscle weakness limiting function Skilled Nursing Goal (LTG) Patient will test at least 4+/ 5 all LE and trunk muscle groups to allow him to return to prior level of function. Will be independent and compliant with progressive HEP and aquatic exercise program. 04/01/22: goal progress, continue to progress his HEP both on land and in the pool. Patient has had limited PT visits past couple months but has remained compliant with current program and motivated to progress and make further gains. LTG Duration 05/10/22 balance Impairment diminished balance scoring in moderate fall risk category Wood Preserving Plant Laborer Goal (LTG) Improve balance with patient testing in low fall risk category on Colon Balance test and TUG test for improved safety and decreased risk of injury 04/01/22: patient tests in moderate fall risk category LTG Duration 05/10/22 walk Impairment pt uses 4ww for all gait Short Term Goal (STG) pt will be able to walk with 2 hiking poles within home distance 10/13/21: goal met STG Duration goal met [employer] Preserving Plant Laborer Goal (LTG) pt will be able to walk with 2 hiking poles at home and community 10/13/21: goal met at home, still mostly uses 4WW in community 01/07/22: patient able to ambulate with trekking poles but for only short distance community ambulation and with exess forward trunk flexion. Updated goal: Patient will be able to ambulate safely in the home without assistive device and for 15 minutes outdoors/ community with walker improved postural alignment 04/01/22: recently moved back to using walker due to increase in back pain, but attempting to move back to using trekking poles. LTG Duration 05/10/22 hip angle Impairment pt has a 28 degrees hip flexion angle in standing Short Term Goal (STG) pt will show improved lumbar mobility and tolerance for WB activities will be able to stand with <25 degrees hip flexion. 10/13/21: goal met STG Duration goal met Skilled Nursing Goal (LTG) pt will show improved lumbar mobility and tolerance for WB activities who will be able to stand with <25 degrees hip flexion. 01/07/22: goal progress LTG Duration 05/10/22 Owestry Impairment pt scores 56 on Oswestry disability index score Short Term Goal (STG) pt will show improved overall mobility and strength by scoring <50 on Owestry 12/29/21: goal achieved. STG Duration goal met Wood Preserving Plant Laborer Goal (LTG) Patient will score less then 40 on Oswestry disability index score as measure of decreased pain and improved activity tolerance 12/29/21: goal progress 04/01/22: had recent exacerbation of pain so not met LTG Duration 05/10/22 Progress Towards Goals Progress Towards Goals Slow Progress due to Activity Tolerance Assessment Summary Assessment Patient making progress in most goal areas, has had limited PT visits past couple months but is compliant to HEP and aquatic exercise program with good potential for fulrther progression and improvement. Recomend further PT to help him achieve his PT goals. Physical Therapy Plan Frequency and Duration Frequency of Treatment 2x/Week Duration of Treatment 8 wks Plan of Care Start Date 03/09/22 Plan of Care End Date 05/10/22 Therapeutic Interventions Therapeutic Interventions Aquatic Therapy,Balance Training,Gait Training,Home Exercise Program,Joint Mobilizations,Manual Therapy, Neuromuscular Re-education, Patient/Caregiver Education, Self-Care/Home Management,Soft Tissue Mobilization,Taping, Therapeutic Activities, Therapeutic Exercises Modalities Cold Pack/Ice Massage,Electric Stimulation,Hot Packs, Infrared Therapy,Paraffin Bath ,Traction- Mechanical, Ultrasound Next Visit Focus/Plan Next Note Type Treatment Note Next Visit Plan Continue combination of land and aquatic-based PT for strengthening, gait training, balance, core strengthening and stabilization, manual therapy and modalities as needed for pain. Increase distance for backstroke and trial mask with snagustín when he brings his new set to therapy. Pt to bring new snorkel to therapy next visit to trial front crawl stroke. Plan of Care Dates Plan of Care Start Date 03/09/22 Plan of Care End Date 05/10/22 Electronically Signed by: Kateryna Shaffer, PT 04/07/22 0800 If you are in agreement with this Plan of Care, please return a signed and dated copy. I have reviewed this Plan of Care and certify that the skilled therapy services above are required to meet the patient?s needs. Physician Signature Date Printed Name and Credentials Clinical Instructor Signature Printed Name and Credentials
--- NOTE | 2022-05-06 14:54 | PT.OTN ---
Current Diagnoses Spondylosis without myelopathy or radiculopathy, lumbar region (05/06/22) Physical Therapy Treatment Note PT-OP-A Visit Information Start: 07/15/21 16:54 Freq: Status: Active Protocol: Document 05/06/22 14:43 BRET (Rec: 05/06/22 14:54 LJ [id number]) Out-Patient Physical Therapy Visit Information Visit Information Visit Type Aquatic Treatment Note Visit Start Time 12:30 Visit Stop Time 01:15 Total Visit Minutes 45 Visit Number 91 Number of CNC LASER OPERATOR Visits 5 PT-OP-B Current Condition Start: 07/15/21 16:54 Freq: Status: Active Protocol: Document 07/15/21 16:54 HH (Rec: 07/15/21 17:27 HH [id number]) Current Condition History of Current Condition Onset Date 2019 Current Complaints chronic back pain, weakness, difficulty in walking History of Current Condition Toribio is a 71 yo returning patient here for his debilitating chronic LBP. He had L4-L5 microdisectomy last year for his L4L5 ruptured disc. He then had significant loss of mobility and strength who now uses 4WW for all mobility. He bascially cannot stand straight and lay in prone position. He walks with a flexed posture to alleviate his pain. He saw his surgeon 2 months ago and did not recommend further back surgery. He had a course of PT with me but only limited progress (able to use hiking sticks to walk at one point). He has been going to the pool for water walking, mobility exercises and has been helpful for his strnegth and balance. He would like to do PT again to participate both land and aquative therapy. Personal Factors Other Personal Factors That May Effect overweight Therapy/Recovery previous heart attack CABG placement chronic back pain PT-OP-C Subjective Start: 07/15/21 16:54 Freq: Status: Active Protocol: Document 05/06/22 14:43 BRET (Rec: 05/06/22 14:54 LJ [id number]) OP-PT Subjective Patient Comments Patient Comments Pt states he feels pretty much the same. Has been going to the pool consistently. PT-OP-D Balance Start: 07/15/21 16:54 Freq: Status: Active Protocol: Document 07/15/21 16:54 HH (Rec: 07/15/21 17:27 HH [id number]) Balance Tests Single Limb Standing Single Limb- Right unable Single Limb- Left unable PT-OP-G Mobility & Gait Start: 07/15/21 16:54 Freq: Status: Active Protocol: Document 07/15/21 16:54 (Rec: 07/15/21 17:27 [id number]) OP Mobility Evaluation Bed Mobility Supine to and from Sit log roll method OP Gait Assessment Gait Gait Assistance Required: Independent Assistive Devices Assistive Device 4 Wheeled Walker Gait Deviations General Gait Pattern Flexed Trunk Factors Limiting Gait Function Factors Limiting Gait Function Limited Range of Motion,Pain Comments Gait Comments pt walks wth a significant flexed posture with a hyperextended lumbar spine. He often has to stop to keep his walker close to his body. PT-OP-H Neuro Start: 07/15/21 16:54 Freq: Status: Active Protocol: Document 07/15/21 16:54 HH (Rec: 07/15/21 17:27 [id number]) Sensation Evaluation Gross Sensation Gross Sensation WNL Deep Tendon Reflex & Clonus Assessment Deep Tendon Reflex Bilateral Achilles Deep Tendon Reflex 2+ Normal Right Patellar Deep Tendon Reflex 2+ Normal Left Patellar Deep Tendon Reflex 0 Absent PT-OP-J Posture/Palpation/Skin Start: 07/15/21 16:54 Freq: Status: Active Protocol: Document 07/15/21 16:54 (Rec: 07/15/21 17:27 [id number]) Posture Evaluation Position Standing T-Spine Posture Increased Kyphosis L-Spine Posture Increased Lordosis,Flexed Hip Posture (L) Flexed,(R) Flexed Knee Posture (L) Excess Flexion,(R) Excess Flexion PT-OP-K Range of Motion Start: 07/15/21 16:54 Freq: Status: Active Protocol: Document 07/15/21 16:54 (Rec: 07/15/21 17:27 [id number]) Lumbar Spine Range of Motion Lumbar Spine Active Degrees Comments hip angle in standing (normal posture) = 28 degrees in flexion hip angle in standing ( extended posture) = 25 degrees in flexion, pain at low back. PT-OP-L Special Tests Start: 07/15/21 16:54 Freq: Status: Active Protocol: Document 07/15/21 16:54 (Rec: 07/15/21 17:27 [id number]) Special Tests Lumbar Spine Special Tests Slump Test Results -ve Straight Leg Raise Test Results -ve Comments no rad pain but extension pain with SLR on R. PT-OP-M Strength Start: 07/15/21 16:54 Freq: Status: Active Protocol: Document 07/15/21 16:54 HH (Rec: 07/15/21 17:27 HH [id number]) Hip Strength Hip Manual Muscle Testing Right Flexion (L2) 3+ Fair+ Extension (S1) 4- Good- Abduction 4- Good- Adduction 4- Good- Comments low back pain with SLR flexion Left Flexion (L2) 4- Good- Extension (S1) 4- Good- Abduction 4+ Good+ Adduction 4+ Good+ Knee Strength Knee Manual Muscle Testing Right Flexion (S2) 5 Normal Extension (L3) 5 Normal Left Flexion (S2) 5 Normal Extension (L3) 5 Normal Ankle/Foot Strength Ankle and Foot Manual Muscle Testing Right Dorsiflexion (L4) 5 Normal Plantarflexion (S1) 5 Normal Left Dorsiflexion (L4) 5 Normal Plantarflexion (S1) 5 Normal PT-OP-Q Treatments Start: 07/15/21 16:54 Freq: Status: Active Protocol: Document 02/24/22 10:37 SAK (Rec: 02/24/22 11:15 SAK [id number]) Cardio Equipment Recumbent Stepper (Sci-Fit) Duration (Minutes) 7 Resistance 1 Seat Position 14 Other cues for neutral LE alignment, core stab Treadmill Duration (Minutes) 2 Speed 1.7 mph Incline 0 Other cues for upright posture, heavy use of UE Gym Equipment Sport Cord green Exercise Details fwd Cord/Resistance green Reps/Duration 10x Comments trekking pole Therapeutic Exercises Supine Exercises bridge Reps/Minutes 10x Sitting Exercises seated hip flex/rectus ab hali Reps/Minutes 10x Comments hands on thighs isometric Sitting Exercise Name core stab Comments emily hands on thighs, opp hand on thigh Standing Exercises shoulder extension Equipment Used L1 TB Reps/Minutes 10x Comments cues for neutral posture and core activation opp UE/LE lift Reps/Minutes 10x Comments UE support on wall, core activation PT-OP-R Modalities Start: 07/15/21 16:54 Freq: Status: Active Protocol: Document 02/24/22 10:37 SAK (Rec: 02/24/22 17:47 SAK [id number]) Hot Pack/Cold Pack Treatment MHP LS Location B LS Patient Position Hooklying Comments strap around distal thighs PT-OP-S Aquatic Treatment Start: 07/15/21 16:54 Freq: Status: Active Protocol: Document 05/06/22 14:43 BRET (Rec: 05/06/22 14:54 LJ [id number]) Aquatics Treatment Pool Entry/Exit Pool Entry/Exit Method Stairs Assistance Independent Water Walking circumduction to tandem Water Level Chest Level Walking Equipment Ankle Floats stop start jogging Water Level Chest Level Walking Equipment Ankle Floats Level of Assistance Verbal Cues Comments 2 laps stop/start with direction change Water Level Chest Level Walking Equipment Ankle Floats Comments 4 min Lunge Walk Water Level Waist Level Walking Equipment Ankle Floats Level of Assistance Standby Assistance Greer March Water Level Chest Level Walking Equipment Ankle Floats Level of Assistance Verbal Cues Marching Water Level Chest Level Walking Equipment Ankle Floats Comments tactile cueing at shoulders for improved posture Sideways Water Level Chest Level Walking Equipment Ankle Floats Comments lg step over Backwards Water Level Chest Level Walking Equipment Ankle Floats Level of Assistance Standby Assistance,Verbal Cues Comments tactile cueing at shoulders for improved posture Forwards Water Level Chest Level Walking Equipment Ankle Floats Comments tactile cueing at shoulders for improved posture Lower Extremity Exercises 4 way hip Body Position Standing Water Level Waist Level Equipment Ankle Floats Reps/Duration 10 x2 ea B Comments cues for posture Lower Extremity Stretches DKTC/SKTC Details SKTC Body Position Standing Water Level Chest Level Reps/Duration 2x30 quads, HS, hip flexors Equipment Small Noodle Reps/Duration 2x30 each Comments gastrocs Spinal Exercises UE pull downs Details front pull down Water Level Chest Level Equipment long barbell Reps/Duration 10x2 Comments cues for core activation paloff press Body Position Standing Water Level Waist Level Equipment cords Reps/Duration 12 B Comments for glute strengthening and core stability trunk rotation Body Position Standing Water Level Chest Level Reps/Duration 10 b Balance SLS Water Level Chest Level Comments 4 cycles of clocks bilat [place] Activities Other Activities traction with occasional bicycling intermittently Equipment #5 B, blue float Duration 8 Swim Strokes underwater breaststroke Laps/Duration 30M Comments breath hold-unable to lift or turn head for breathing Crawl Equipment Fins Other Equipment Used snorkle Laps/Duration 3 x30M PT-OP-T Assessment and Plan Start: 07/15/21 16:54 Freq: Status: Active Protocol: Document 05/06/22 14:43 BRET (Rec: 05/06/22 14:54 BRET [id number]) Physical Therapy Assessment Rehab Potential Rehabilitation Potential Fair Evaluation Complexity Number of Personal Factors/Comorbidities 3 or More Number of Body Systems Impaired 3 Clinical Presentation at Evaluation Stable Impairments Impairments Activity Tolerance,Balance, Functional Activities, Functional Mobility,Gait,Pain, Posture,ROM,Soft Tissue Mobility,Strength,Transfers Goals weakness Impairment LE and core muscle weakness limiting function Paper Reel Operator Goal (LTG) Patient will test at least 4+/ 5 all LE and trunk muscle groups to allow him to return to prior level of function. Will be independent and compliant with progressive HEP and aquatic exercise program. 04/01/22: goal progress, continue to progress his HEP both on land and in the pool. Patient has had limited PT visits past couple months but has remained compliant with current program and motivated to progress and make further gains. LTG Duration 05/10/22 balance Impairment diminished balance scoring in moderate fall risk category Paper Reel Operator Goal (LTG) Improve balance with patient testing in low fall risk category on Colon Balance test and TUG test for improved safety and decreased risk of injury 04/01/22: patient tests in moderate fall risk category LTG Duration 05/10/22 walk Impairment pt uses 4ww for all gait Short Term Goal (STG) pt will be able to walk with 2 hiking poles within home distance 10/13/21: goal met STG Duration goal met Paper Reel Operator Goal (LTG) pt will be able to walk with 2 hiking poles at home and community 10/13/21: goal met at home, still mostly uses 4WW in community 01/07/22: patient able to ambulate with trekking poles but for only short distance community ambulation and with exess forward trunk flexion. Updated goal: Patient will be able to ambulate safely in the home without assistive device and for 15 minutes outdoors/ community with walker improved postural alignment 04/01/22: recently moved back to using walker due to increase in back pain, but attempting to move back to using trekking poles. LTG Duration 05/10/22 hip angle Impairment pt has a 28 degrees hip flexion angle in standing Short Term Goal (STG) pt will show improved lumbar mobility and tolerance for WB activities will be able to stand with <25 degrees hip flexion. 10/13/21: goal met STG Duration goal met Paper Reel Operator Goal (LTG) pt will show improved lumbar mobility and tolerance for WB activities who will be able to stand with <25 degrees hip flexion. 01/07/22: goal progress LTG Duration 05/10/22 Owestry Impairment pt scores 56 on Oswestry disability index score Short Term Goal (STG) pt will show improved overall mobility and strength by scoring <50 on Owestry 12/29/21: goal achieved. STG Duration goal met Detention Goal (LTG) Patient will score less then 40 on Oswestry disability index score as measure of decreased pain and improved activity tolerance 12/29/21: goal progress 04/01/22: had recent exacerbation of pain so not met LTG Duration 05/10/22 Progress Towards Goals Progress Towards Goals Slow Progress due to Activity Tolerance Assessment Summary Assessment Pt still struggling with SL balance on LLE however, balance has improved overall. Front crawl stroke improved with use of new snorkle. He continues to be compliant with HEP. Physical Therapy Plan Frequency and Duration Frequency of Treatment 2x/Week Duration of Treatment 8 wks Plan of Care Start Date 03/09/22 Plan of Care End Date 05/10/22 Therapeutic Interventions Therapeutic Interventions Aquatic Therapy,Balance Training,Gait Training,Home Exercise Program,Joint Mobilizations,Manual Therapy, Neuromuscular Re-education, Patient/Caregiver Education, Self-Care/Home Management,Soft Tissue Mobilization,Taping, Therapeutic Activities, Therapeutic Exercises Modalities Cold Pack/Ice Massage,Electric Stimulation,Hot Packs, Infrared Therapy,Paraffin Bath ,Traction- Mechanical, Ultrasound Next Visit Focus/Plan Next Note Type Treatment Note Next Visit Plan Continue combination of land and aquatic-based PT for strengthening, gait training, balance, core strengthening and stabilization, manual therapy and modalities as needed for pain. Increase distance for front crawl stroke. Pt needs updated POC.
--- NOTE | 2022-05-13 14:10 | PT.OPPOC ---
Physical, Occupational & Speech Therapy At [facility] Current Diagnoses Spondylosis without myelopathy or radiculopathy, lumbar region (05/13/22) Visit Care Team Role Provider Type Benjamin Aguilera DO Primary Care Provider Physician Specialty: Family Practice Address: [address] [place] [address], [id number] Email: [email or web address] Bo Robin Lee MD Family Provider Physician Specialty: Internal Medicine Address: [address] [place] [address], [id number] Email: [email or web address] AMADA Knox Attending Provider Non-Staff Referring Provider Specialty: Medical Address: [address] [place] [address], [address], [facility] Email: Plan Of Care PT-OP-T Assessment and Plan Start: 07/15/21 16:54 Freq: Status: Active Protocol: Document 05/13/22 11:45 SAK (Rec: 05/14/22 14:09 [facility] [id number]) Physical Therapy Assessment Impairments Impairments Activity Tolerance,Balance, Functional Activities, Functional Mobility,Gait,Pain, Posture,ROM,Soft Tissue Mobility,Strength,Transfers Goals weakness Impairment LE and core muscle weakness limiting function Fdc Goal (LTG) Patient will test at least 4+/ 5 all LE and trunk muscle groups to allow him to return to prior level of function. Will be independent and compliant with progressive HEP and aquatic exercise program. 04/01/22: goal progress, continue to progress his HEP both on land and in the pool. Patient has had limited PT visits past couple months but has remained compliant with current program and motivated to progress and make further gains. 05/13/22: no change LTG Duration 06/24/22 balance Impairment diminished balance scoring in moderate fall risk category Tapper Bit Goal (LTG) Improve balance with patient testing in low fall risk category on Colon Balance test and TUG test for improved safety and decreased risk of injury 04/01/22: patient tests in moderate fall risk category 05/14/22: still mod risk category LTG Duration 06/24/22 walk Impairment pt uses 4ww for all gait Short Term Goal (STG) pt will be able to walk with 2 hiking poles within home distance 10/13/21: goal met STG Duration goal met Tapper Bit Goal (LTG) pt will be able to walk with 2 hiking poles at home and community 10/13/21: goal met at home, still mostly uses 4WW in community 01/07/22: patient able to ambulate with trekking poles but for only short distance community ambulation and with exess forward trunk flexion. Updated goal: Patient will be able to ambulate safely in the home without assistive device and for 15 minutes outdoors/ community with walker improved postural alignment 04/01/22: recently moved back to using walker due to increase in back pain, but attempting to move back to using trekking poles. 05/13: using cane or trekking poles again LTG Duration 06/24/22 hip angle Impairment pt has a 28 degrees hip flexion angle in standing Short Term Goal (STG) pt will show improved lumbar mobility and tolerance for WB activities will be able to stand with <25 degrees hip flexion. 10/13/21: goal met STG Duration goal met Fdc Goal (LTG) pt will show improved lumbar mobility and tolerance for WB activities who will be able to stand with <25 degrees hip flexion. 01/07/22: goal progress 05/13/22: no further progress, most limited in standing tolerance. LTG Duration 05/10/22 Owestry Impairment pt scores 56 on Oswestry disability index score Short Term Goal (STG) pt will show improved overall mobility and strength by scoring <50 on Owestry 12/29/21: goal achieved. STG Duration goal met Tapper Bit Goal (LTG) Patient will score less then 40 on Oswestry disability index score as measure of decreased pain and improved activity tolerance 12/29/21: goal progress 04/01/22: had recent exacerbation of pain so not met 05/13/22: no change since last seen LTG Duration 05/10/22 Progress Towards Goals Progress Towards Goals Slow Progress due to Activity Tolerance Assessment Summary Assessment Patient requests no further land-based PT due to pain. No further progress since last seen by this PT; due to pool closure and PT vacation patient seen for only 2 visits counting today since last seen. Prior to that we had been noting some improvement toward goals so recommend continued aquatic PT for 6 weeks then anticipate transition to independent HEP and land-based PT. Physical Therapy Plan Frequency and Duration Frequency of Treatment 2x/Week Duration of Treatment 6 wks Plan of Care Start Date 05/13/22 Plan of Care End Date 06/24/22 Therapeutic Interventions Therapeutic Interventions Aquatic Therapy,Balance Training,Gait Training,Home Exercise Program,Joint Mobilizations,Manual Therapy, Neuromuscular Re-education, Patient/Caregiver Education, Self-Care/Home Management,Soft Tissue Mobilization,Taping, Therapeutic Activities, Therapeutic Exercises Modalities Cold Pack/Ice Massage,Electric Stimulation,Hot Packs, Infrared Therapy,Paraffin Bath ,Traction- Mechanical, Ultrasound Next Visit Focus/Plan Next Note Type Treatment Note Next Visit Plan Continue aquatic-based PT for strengthening, gait training, balance, core strengthening and stabilization, manual therapy techniques as needed for pain. Increase distance for front crawl stroke. Plan of Care Dates Plan of Care Start Date 05/13/22 Plan of Care End Date 06/24/22 Electronically Signed by: Kateryna Shaffer, PT 05/14/22 2718 If you are in agreement with this Plan of Care, please return a signed and dated copy. I have reviewed this Plan of Care and certify that the skilled therapy services above are required to meet the patient?s needs. Physician Signature Date Printed Name and Credentials Clinical Instructor Signature Printed Name and Credentials
--- NOTE | 2022-05-13 14:10 | PT.OTN ---
Current Diagnoses Spondylosis without myelopathy or radiculopathy, lumbar region (05/13/22) Physical Therapy Treatment Note PT-OP-A Visit Information Start: 07/15/21 16:54 Freq: Status: Active Protocol: Document 05/13/22 11:45 SAK (Rec: 05/14/22 14:09 [facility] [id number]) Out-Patient Physical Therapy Visit Information Visit Information Visit Type Aquatic Treatment Note Visit Start Time 12:30 Visit Stop Time 01:15 Total Visit Minutes 45 Visit Number 91 Number of INFORMATION SECURITY Visits 0 PT-OP-B Current Condition Start: 07/15/21 16:54 Freq: Status: Active Protocol: Document 07/15/21 16:54 HH (Rec: 07/15/21 17:27 HH [id number]) Current Condition History of Current Condition Onset Date 2019 Current Complaints chronic back pain, weakness, difficulty in walking History of Current Condition Toribio is a 71 yo returning patient here for his debilitating chronic LBP. He had L4-L5 microdisectomy last year for his L4L5 ruptured disc. He then had significant loss of mobility and strength who now uses 4WW for all mobility. He bascially cannot stand straight and lay in prone position. He walks with a flexed posture to alleviate his pain. He saw his surgeon 2 months ago and did not recommend further back surgery. He had a course of PT with me but only limited progress (able to use hiking sticks to walk at one point). He has been going to the pool for water walking, mobility exercises and has been helpful for his strnegth and balance. He would like to do PT again to participate both land and aquative therapy. Personal Factors Other Personal Factors That May Effect overweight Therapy/Recovery previous heart attack CABG placement chronic back pain PT-OP-C Subjective Start: 07/15/21 16:54 Freq: Status: Active Protocol: Document 05/13/22 11:45 SAK (Rec: 05/14/22 14:09 [facility] [id number]) OP-PT Subjective Patient Comments Patient Comments States he just doesn't want to do land-based PT anymore as he hurts too much after. PT-OP-D Balance Start: 07/15/21 16:54 Freq: Status: Active Protocol: Document 07/15/21 16:54 HH (Rec: 07/15/21 17:27 HH [id number]) Balance Tests Single Limb Standing Single Limb- Right unable Single Limb- Left unable PT-OP-G Mobility & Gait Start: 07/15/21 16:54 Freq: Status: Active Protocol: Document 07/15/21 16:54 (Rec: 07/15/21 17:27 [id number]) OP Mobility Evaluation Bed Mobility Supine to and from Sit log roll method OP Gait Assessment Gait Gait Assistance Required: Independent Assistive Devices Assistive Device 4 Wheeled Walker Gait Deviations General Gait Pattern Flexed Trunk Factors Limiting Gait Function Factors Limiting Gait Function Limited Range of Motion,Pain Comments Gait Comments pt walks wth a significant flexed posture with a hyperextended lumbar spine. He often has to stop to keep his walker close to his body. PT-OP-H Neuro Start: 07/15/21 16:54 Freq: Status: Active Protocol: Document 07/15/21 16:54 (Rec: 07/15/21 17:27 [id number]) Sensation Evaluation Gross Sensation Gross Sensation WNL Deep Tendon Reflex & Clonus Assessment Deep Tendon Reflex Bilateral Achilles Deep Tendon Reflex 2+ Normal Right Patellar Deep Tendon Reflex 2+ Normal Left Patellar Deep Tendon Reflex 0 Absent PT-OP-J Posture/Palpation/Skin Start: 07/15/21 16:54 Freq: Status: Active Protocol: Document 07/15/21 16:54 (Rec: 07/15/21 17:27 [id number]) Posture Evaluation Position Standing T-Spine Posture Increased Kyphosis L-Spine Posture Increased Lordosis,Flexed Hip Posture (L) Flexed,(R) Flexed Knee Posture (L) Excess Flexion,(R) Excess Flexion PT-OP-K Range of Motion Start: 07/15/21 16:54 Freq: Status: Active Protocol: Document 07/15/21 16:54 HH (Rec: 07/15/21 17:27 [id number]) Lumbar Spine Range of Motion Lumbar Spine Active Degrees Comments hip angle in standing (normal posture) = 28 degrees in flexion hip angle in standing ( extended posture) = 25 degrees in flexion, pain at low back. PT-OP-L Special Tests Start: 07/15/21 16:54 Freq: Status: Active Protocol: Document 07/15/21 16:54 (Rec: 07/15/21 17:27 [id number]) Special Tests Lumbar Spine Special Tests Slump Test Results -ve Straight Leg Raise Test Results -ve Comments no rad pain but extension pain with SLR on R. PT-OP-M Strength Start: 07/15/21 16:54 Freq: Status: Active Protocol: Document 07/15/21 16:54 (Rec: 07/15/21 17:27 [id number]) Hip Strength Hip Manual Muscle Testing Right Flexion (L2) 3+ Fair+ Extension (S1) 4- Good- Abduction 4- Good- Adduction 4- Good- Comments low back pain with SLR flexion Left Flexion (L2) 4- Good- Extension (S1) 4- Good- Abduction 4+ Good+ Adduction 4+ Good+ Knee Strength Knee Manual Muscle Testing Right Flexion (S2) 5 Normal Extension (L3) 5 Normal Left Flexion (S2) 5 Normal Extension (L3) 5 Normal Ankle/Foot Strength Ankle and Foot Manual Muscle Testing Right Dorsiflexion (L4) 5 Normal Plantarflexion (S1) 5 Normal Left Dorsiflexion (L4) 5 Normal Plantarflexion (S1) 5 Normal PT-OP-Q Treatments Start: 07/15/21 16:54 Freq: Status: Active Protocol: Document 02/24/22 10:37 SAK (Rec: 02/24/22 11:15 SAK [id number]) Cardio Equipment Recumbent Stepper (Sci-Fit) Duration (Minutes) 7 Resistance 1 Seat Position 14 Other cues for neutral LE alignment, core stab Treadmill Duration (Minutes) 2 Speed 1.7 mph Incline 0 Other cues for upright posture, heavy use of UE Gym Equipment Sport Cord green Exercise Details fwd Cord/Resistance green Reps/Duration 10x Comments trekking pole Therapeutic Exercises Supine Exercises bridge Reps/Minutes 10x Sitting Exercises seated hip flex/rectus ab hali Reps/Minutes 10x Comments hands on thighs isometric Sitting Exercise Name core stab Comments emily hands on thighs, opp hand on thigh Standing Exercises shoulder extension Equipment Used L1 TB Reps/Minutes 10x Comments cues for neutral posture and core activation opp UE/LE lift Reps/Minutes 10x Comments UE support on wall, core activation PT-OP-R Modalities Start: 07/15/21 16:54 Freq: Status: Active Protocol: Document 02/24/22 10:37 SAK (Rec: 02/24/22 17:47 SAK [id number]) Hot Pack/Cold Pack Treatment MHP LS Location B LS Patient Position Hooklying Comments strap around distal thighs PT-OP-S Aquatic Treatment Start: 07/15/21 16:54 Freq: Status: Active Protocol: Document 05/06/22 14:43 BRET (Rec: 05/06/22 14:54 LJ [id number]) Aquatics Treatment Pool Entry/Exit Pool Entry/Exit Method Stairs Assistance Independent Water Walking circumduction to tandem Water Level Chest Level Walking Equipment Ankle Floats stop start jogging Water Level Chest Level Walking Equipment Ankle Floats Level of Assistance Verbal Cues Comments 2 laps stop/start with direction change Water Level Chest Level Walking Equipment Ankle Floats Comments 4 min Lunge Walk Water Level Waist Level Walking Equipment Ankle Floats Level of Assistance Standby Assistance [place] March Water Level Chest Level Walking Equipment Ankle Floats Level of Assistance Verbal Cues Marching Water Level Chest Level Walking Equipment Ankle Floats Comments tactile cueing at shoulders for improved posture Sideways Water Level Chest Level Walking Equipment Ankle Floats Comments lg step over Backwards Water Level Chest Level Walking Equipment Ankle Floats Level of Assistance Standby Assistance,Verbal Cues Comments tactile cueing at shoulders for improved posture Forwards Water Level Chest Level Walking Equipment Ankle Floats Comments tactile cueing at shoulders for improved posture Lower Extremity Exercises 4 way hip Body Position Standing Water Level Waist Level Equipment Ankle Floats Reps/Duration 10 x2 ea B Comments cues for posture Lower Extremity Stretches DKTC/SKTC Details SKTC Body Position Standing Water Level Chest Level Reps/Duration 2x30 quads, HS, hip flexors Equipment Small Noodle Reps/Duration 2x30 each Comments gastrocs Spinal Exercises UE pull downs Details front pull down Water Level Chest Level Equipment long barbell Reps/Duration 10x2 Comments cues for core activation paloff press Body Position Standing Water Level Waist Level Equipment cords Reps/Duration 12 B Comments for glute strengthening and core stability trunk rotation Body Position Standing Water Level Chest Level Reps/Duration 10 b Balance SLS Water Level Chest Level Comments 4 cycles of clocks bilat [place] Activities Other Activities traction with occasional bicycling intermittently Equipment #5 B, blue float Duration 8 Swim Strokes underwater breaststroke Laps/Duration 30M Comments breath hold-unable to lift or turn head for breathing Crawl Equipment Fins Other Equipment Used snorkle Laps/Duration 3 x30M PT-OP-T Assessment and Plan Start: 07/15/21 16:54 Freq: Status: Active Protocol: Document 05/13/22 11:45 SAK (Rec: 05/14/22 14:09 [facility] [id number]) Physical Therapy Assessment Impairments Impairments Activity Tolerance,Balance, Functional Activities, Functional Mobility,Gait,Pain, Posture,ROM,Soft Tissue Mobility,Strength,Transfers Goals weakness Impairment LE and core muscle weakness limiting function Gym Attendant Goal (LTG) Patient will test at least 4+/ 5 all LE and trunk muscle groups to allow him to return to prior level of function. Will be independent and compliant with progressive HEP and aquatic exercise program. 04/01/22: goal progress, continue to progress his HEP both on land and in the pool. Patient has had limited PT visits past couple months but has remained compliant with current program and motivated to progress and make further gains. 05/13/22: no change LTG Duration 06/24/22 balance Impairment diminished balance scoring in moderate fall risk category Halfway Goal (LTG) Improve balance with patient testing in low fall risk category on Colon Balance test and TUG test for improved safety and decreased risk of injury 04/01/22: patient tests in moderate fall risk category 05/14/22: still mod risk category LTG Duration 06/24/22 walk Impairment pt uses 4ww for all gait Short Term Goal (STG) pt will be able to walk with 2 hiking poles within home distance 10/13/21: goal met STG Duration goal met Halfway Goal (LTG) pt will be able to walk with 2 hiking poles at home and community 10/13/21: goal met at home, still mostly uses 4WW in community 01/07/22: patient able to ambulate with trekking poles but for only short distance community ambulation and with exess forward trunk flexion. Updated goal: Patient will be able to ambulate safely in the home without assistive device and for 15 minutes outdoors/ community with walker improved postural alignment 04/01/22: recently moved back to using walker due to increase in back pain, but attempting to move back to using trekking poles. 05/13: using cane or trekking poles again LTG Duration 06/24/22 hip angle Impairment pt has a 28 degrees hip flexion angle in standing Short Term Goal (STG) pt will show improved lumbar mobility and tolerance for WB activities will be able to stand with <25 degrees hip flexion. 10/13/21: goal met STG Duration goal met Halfway Goal (LTG) pt will show improved lumbar mobility and tolerance for WB activities who will be able to stand with <25 degrees hip flexion. 01/07/22: goal progress 05/13/22: no further progress, most limited in standing tolerance. LTG Duration 05/10/22 Owest[place] Impairment pt scores 56 on Oswestry disability index score Short Term Goal (STG) pt will show improved overall mobility and strength by scoring <50 on Owestry 12/29/21: goal achieved. STG Duration goal met Halfway Goal (LTG) Patient will score less then 40 on Oswestry disability index score as measure of decreased pain and improved activity tolerance 12/29/21: goal progress 04/01/22: had recent exacerbation of pain so not met 05/13/22: no change since last seen LTG Duration 05/10/22 Progress Towards Goals Progress Towards Goals Slow Progress due to Activity Tolerance Assessment Summary Assessment Patient requests no further land-based PT due to pain. No further progress since last seen by this PT; due to pool closure and PT vacation patient seen for only 2 visits counting today since last seen. Prior to that we had been noting some improvement toward goals so recommend continued aquatic PT for 6 weeks then anticipate transition to independent HEP and land-based PT. Physical Therapy Plan Frequency and Duration Frequency of Treatment 2x/Week Duration of Treatment 6 wks Plan of Care Start Date 05/13/22 Plan of Care End Date 06/24/22 Therapeutic Interventions Therapeutic Interventions Aquatic Therapy,Balance Training,Gait Training,Home Exercise Program,Joint Mobilizations,Manual Therapy, Neuromuscular Re-education, Patient/Caregiver Education, Self-Care/Home Management,Soft Tissue Mobilization,Taping, Therapeutic Activities, Therapeutic Exercises Modalities Cold Pack/Ice Massage,Electric Stimulation,Hot Packs, Infrared Therapy,Paraffin Bath ,Traction- Mechanical, Ultrasound Next Visit Focus/Plan Next Note Type Treatment Note Next Visit Plan Continue aquatic-based PT for strengthening, gait training, balance, core strengthening and stabilization, manual therapy techniques as needed for pain. Increase distance for front crawl stroke.
--- NOTE | 2022-05-20 14:17 | PT.OTN ---
Current Diagnoses Spondylosis without myelopathy or radiculopathy, lumbar region (05/13/22) Physical Therapy Treatment Note PT-OP-A Visit Information Start: 07/15/21 16:54 Freq: Status: Active Protocol: Document 05/20/22 13:56 BRET (Rec: 05/20/22 14:17 LJ [id number]) Out-Patient Physical Therapy Visit Information Visit Information Visit Type Aquatic Treatment Note Visit Start Time 11:45 Visit Stop Time 12:30 Total Visit Minutes 45 Visit Number 92 Number of PRODUCT SAFETY LEAD Visits 1 PT-OP-B Current Condition Start: 07/15/21 16:54 Freq: Status: Active Protocol: Document 07/15/21 16:54 HH (Rec: 07/15/21 17:27 HH [id number]) Current Condition History of Current Condition Onset Date 2019 Current Complaints chronic back pain, weakness, difficulty in walking History of Current Condition Toribio is a 71 yo returning patient here for his debilitating chronic LBP. He had L4-L5 microdisectomy last year for his L4L5 ruptured disc. He then had significant loss of mobility and strength who now uses 4WW for all mobility. He bascially cannot stand straight and lay in prone position. He walks with a flexed posture to alleviate his pain. He saw his surgeon 2 months ago and did not recommend further back surgery. He had a course of PT with me but only limited progress (able to use hiking sticks to walk at one point). He has been going to the pool for water walking, mobility exercises and has been helpful for his strnegth and balance. He would like to do PT again to participate both land and aquative therapy. Personal Factors Other Personal Factors That May Effect overweight Therapy/Recovery previous heart attack CABG placement chronic back pain PT-OP-C Subjective Start: 07/15/21 16:54 Freq: Status: Active Protocol: Document 05/20/22 13:56 BRET (Rec: 05/20/22 14:17 LJ [id number]) OP-PT Subjective Patient Comments Patient Comments Pt got in the water early and began walking. He states he is having difficulty walking sideways and does not know why . PT-OP-D Balance Start: 07/15/21 16:54 Freq: Status: Active Protocol: Document 07/15/21 16:54 HH (Rec: 07/15/21 17:27 HH [id number]) Balance Tests Single Limb Standing Single Limb- Right unable Single Limb- Left unable PT-OP-G Mobility & Gait Start: 07/15/21 16:54 Freq: Status: Active Protocol: Document 07/15/21 16:54 (Rec: 07/15/21 17:27 [id number]) OP Mobility Evaluation Bed Mobility Supine to and from Sit log roll method OP Gait Assessment Gait Gait Assistance Required: Independent Assistive Devices Assistive Device 4 Wheeled Walker Gait Deviations General Gait Pattern Flexed Trunk Factors Limiting Gait Function Factors Limiting Gait Function Limited Range of Motion,Pain Comments Gait Comments pt walks wth a significant flexed posture with a hyperextended lumbar spine. He often has to stop to keep his walker close to his body. PT-OP-H Neuro Start: 07/15/21 16:54 Freq: Status: Active Protocol: Document 07/15/21 16:54 (Rec: 07/15/21 17:27 [id number]) Sensation Evaluation Gross Sensation Gross Sensation WNL Deep Tendon Reflex & Clonus Assessment Deep Tendon Reflex Bilateral Achilles Deep Tendon Reflex 2+ Normal Right Patellar Deep Tendon Reflex 2+ Normal Left Patellar Deep Tendon Reflex 0 Absent PT-OP-J Posture/Palpation/Skin Start: 07/15/21 16:54 Freq: Status: Active Protocol: Document 07/15/21 16:54 (Rec: 07/15/21 17:27 [id number]) Posture Evaluation Position Standing T-Spine Posture Increased Kyphosis L-Spine Posture Increased Lordosis,Flexed Hip Posture (L) Flexed,(R) Flexed Knee Posture (L) Excess Flexion,(R) Excess Flexion PT-OP-K Range of Motion Start: 07/15/21 16:54 Freq: Status: Active Protocol: Document 07/15/21 16:54 (Rec: 07/15/21 17:27 [id number]) Lumbar Spine Range of Motion Lumbar Spine Active Degrees Comments hip angle in standing (normal posture) = 28 degrees in flexion hip angle in standing ( extended posture) = 25 degrees in flexion, pain at low back. PT-OP-L Special Tests Start: 07/15/21 16:54 Freq: Status: Active Protocol: Document 07/15/21 16:54 (Rec: 07/15/21 17:27 [id number]) Special Tests Lumbar Spine Special Tests Slump Test Results -ve Straight Leg Raise Test Results -ve Comments no rad pain but extension pain with SLR on R. PT-OP-M Strength Start: 07/15/21 16:54 Freq: Status: Active Protocol: Document 07/15/21 16:54 (Rec: 07/15/21 17:27 [id number]) Hip Strength Hip Manual Muscle Testing Right Flexion (L2) 3+ Fair+ Extension (S1) 4- Good- Abduction 4- Good- Adduction 4- Good- Comments low back pain with SLR flexion Left Flexion (L2) 4- Good- Extension (S1) 4- Good- Abduction 4+ Good+ Adduction 4+ Good+ Knee Strength Knee Manual Muscle Testing Right Flexion (S2) 5 Normal Extension (L3) 5 Normal Left Flexion (S2) 5 Normal Extension (L3) 5 Normal Ankle/Foot Strength Ankle and Foot Manual Muscle Testing Right Dorsiflexion (L4) 5 Normal Plantarflexion (S1) 5 Normal Left Dorsiflexion (L4) 5 Normal Plantarflexion (S1) 5 Normal PT-OP-Q Treatments Start: 07/15/21 16:54 Freq: Status: Active Protocol: Document 02/24/22 10:37 SAK (Rec: 02/24/22 11:15 [facility] [id number]) Cardio Equipment Recumbent Stepper (Sci-Fit) Duration (Minutes) 7 Resistance 1 Seat Position 14 Other cues for neutral LE alignment, core stab Treadmill Duration (Minutes) 2 Speed 1.7 mph Incline 0 Other cues for upright posture, heavy use of UE Gym Equipment Sport Cord green Exercise Details fwd Cord/Resistance green Reps/Duration 10x Comments trekking pole Therapeutic Exercises Supine Exercises bridge Reps/Minutes 10x Sitting Exercises seated hip flex/rectus ab hali Reps/Minutes 10x Comments hands on thighs isometric Sitting Exercise Name core stab Comments emily hands on thighs, opp hand on thigh Standing Exercises shoulder extension Equipment Used L1 TB Reps/Minutes 10x Comments cues for neutral posture and core activation opp UE/LE lift Reps/Minutes 10x Comments UE support on wall, core activation PT-OP-R Modalities Start: 07/15/21 16:54 Freq: Status: Active Protocol: Document 02/24/22 10:37 SAK (Rec: 02/24/22 17:47 SAK [id number]) Hot Pack/Cold Pack Treatment MHP LS Location B LS Patient Position Hooklying Comments strap around distal thighs PT-OP-S Aquatic Treatment Start: 07/15/21 16:54 Freq: Status: Active Protocol: Document 05/20/22 13:56 BRET (Rec: 05/20/22 14:17 [id number]) Aquatics Treatment Pool Entry/Exit Pool Entry/Exit Method Stairs Assistance Independent Water Walking stop start jogging Water Level Chest Level Level of Assistance Verbal Cues Comments 2 laps stop/start with direction change Water Level Chest Level Comments 4 min Lunge Walk Water Level Waist Level Level of Assistance Standby Assistance Marching Water Level Chest Level Sideways Water Level Chest Level Comments moved to deeper water Backwards Water Level Chest Level Forwards Water Level Chest Level Walking Equipment Ankle Floats Comments quick steps for 2 laps Lower Extremity Exercises hip ABD Body Position Standing Water Level Waist Level Equipment stretch cords Reps/Duration 2x 8 B deep kicks Details braced on steps Body Position Prone Water Level Waist Level Equipment Resistance Fins Reps/Duration 3x 10 kick back Details facing wall Body Position Standing Water Level Waist Level Equipment stretch cords Reps/Duration 2x 8 B squats Body Position Standing Water Level Waist Level Reps/Duration 10 B Comments single leg Upper Extremity Exercises chest press Body Position Standing Water Level Waist Level Equipment cords Reps/Duration 15 Comments foot braced on wall rows Body Position Standing Water Level Chest Level Equipment cords Reps/Duration 30 flex/ext Body Position Standing Water Level Chest Level Equipment cords Reps/Duration 15 HAB AD Body Position Standing Water Level Chest Level Equipment sm bells Reps/Duration 15 Spinal Exercises UE pull downs Details front pull down Water Level Chest Level Equipment long barbell Reps/Duration 10x2 Comments paired with forward walking 2 laps paloff press Body Position Standing Water Level Waist Level Equipment cords Reps/Duration 12 B Comments for glute strengthening and core stability Balance SL squat with toe touch on dots Details dots placed for flexion, abd, and extension Body Position Standing Water Level Waist Level Equipment dots, noodle Reps/Duration 10 ea B Comments pt with difficuulty balancing Swim Strokes underwater breaststroke Equipment Fins Laps/Duration 30M Comments breath hold-unable to lift or turn head for breathing Crawl Equipment Fins Other Equipment Used snorkle Laps/Duration 4 x30M Comments improving speed, form, tolerance kick on back Other Equipment Used fins Laps/Duration 15 m x 2 PT-OP-T Assessment and Plan Start: 07/15/21 16:54 Freq: Status: Active Protocol: Document 05/20/22 13:56 BRET (Rec: 05/20/22 14:17 BRET [id number]) Physical Therapy Assessment Impairments Impairments Activity Tolerance,Balance, Functional Activities, Functional Mobility,Gait,Pain, Posture,ROM,Soft Tissue Mobility,Strength,Transfers Goals weakness Impairment LE and core muscle weakness limiting function Mammographer Goal (LTG) Patient will test at least 4+/ 5 all LE and trunk muscle groups to allow him to return to prior level of function. Will be independent and compliant with progressive HEP and aquatic exercise program. 04/01/22: goal progress, continue to progress his HEP both on land and in the pool. Patient has had limited PT visits past couple months but has remained compliant with current program and motivated to progress and make further gains. 05/13/22: no change LTG Duration 06/24/22 balance Impairment diminished balance scoring in moderate fall risk category Skilled Nursing Goal (LTG) Improve balance with patient testing in low fall risk category on Colon Balance test and TUG test for improved safety and decreased risk of injury 04/01/22: patient tests in moderate fall risk category 05/14/22: still mod risk category LTG Duration 06/24/22 walk Impairment pt uses 4ww for all gait Short Term Goal (STG) pt will be able to walk with 2 hiking poles within home distance 10/13/21: goal met STG Duration goal met Mammographer Goal (LTG) pt will be able to walk with 2 hiking poles at home and community 10/13/21: goal met at home, still mostly uses 4WW in community 01/07/22: patient able to ambulate with trekking poles but for only short distance community ambulation and with exess forward trunk flexion. Updated goal: Patient will be able to ambulate safely in the home without assistive device and for 15 minutes outdoors/ community with walker improved postural alignment 04/01/22: recently moved back to using walker due to increase in back pain, but attempting to move back to using trekking poles. 05/13: using cane or trekking poles again LTG Duration 06/24/22 hip angle Impairment pt has a 28 degrees hip flexion angle in standing Short Term Goal (STG) pt will show improved lumbar mobility and tolerance for WB activities will be able to stand with <25 degrees hip flexion. 10/13/21: goal met STG Duration goal met Skilled Nursing Goal (LTG) pt will show improved lumbar mobility and tolerance for WB activities who will be able to stand with <25 degrees hip flexion. 01/07/22: goal progress 05/13/22: no further progress, most limited in standing tolerance. LTG Duration 05/10/22 Owestry Impairment pt scores 56 on Oswestry disability index score Short Term Goal (STG) pt will show improved overall mobility and strength by scoring <50 on Owestry 12/29/21: goal achieved. STG Duration goal met Mammographer Goal (LTG) Patient will score less then 40 on Oswestry disability index score as measure of decreased pain and improved activity tolerance 12/29/21: goal progress 04/01/22: had recent exacerbation of pain so not met 05/13/22: no change since last seen LTG Duration 05/10/22 Progress Towards Goals Progress Towards Goals Slow Progress due to Activity Tolerance Assessment Summary Assessment Pt had difficulty in side stepping but able to walk other directions w/o trouble. His posture is improving as evidenced by walking more erect on land and in the water with few cues. Using only one trekking pole for ambulation at pool. His swimming is improving with stronger stroke and ability to increase distance. He had trouble with coming to complete standing when not using the wall for support though due to inability to extend back or roll over. He will continue to benefit from aquatic therapy and increasing level of difficulty as tolerated. He is very faithful going to the pool several days per week and will perform same exercises as he does during treatment sessions if able. Physical Therapy Plan Frequency and Duration Frequency of Treatment 2x/Week Duration of Treatment 6 wks Plan of Care Start Date 05/13/22 Plan of Care End Date 06/24/22 Therapeutic Interventions Therapeutic Interventions Aquatic Therapy,Balance Training,Gait Training,Home Exercise Program,Joint Mobilizations,Manual Therapy, Neuromuscular Re-education, Patient/Caregiver Education, Self-Care/Home Management,Soft Tissue Mobilization,Taping, Therapeutic Activities, Therapeutic Exercises Modalities Cold Pack/Ice Massage,Electric Stimulation,Hot Packs, Infrared Therapy,Paraffin Bath ,Traction- Mechanical, Ultrasound Next Visit Focus/Plan Next Note Type Treatment Note Next Visit Plan Continue aquatic-based PT for strengthening, gait training, balance, core strengthening and stabilization, manual therapy techniques as needed for pain. Increase distance for front crawl stroke and add modified back crawl. Practice rolling and coming to standing when swimming in prone position.
--- NOTE | 2022-05-27 15:46 | PT.OTN ---
Current Diagnoses Spondylosis without myelopathy or radiculopathy, lumbar region (05/27/22) Physical Therapy Treatment Note PT-OP-A Visit Information Start: 07/15/21 16:54 Freq: Status: Active Protocol: Document 05/27/22 15:38 SAK (Rec: 05/27/22 15:46 [facility] [id number]) Out-Patient Physical Therapy Visit Information Visit Information Visit Type Aquatic Treatment Note Visit Start Time 11:00 Visit Stop Time 11:45 Total Visit Minutes 45 Visit Number 93 Number of CASING RUNNER Visits 0 PT-OP-B Current Condition Start: 07/15/21 16:54 Freq: Status: Active Protocol: Document 07/15/21 16:54 HH (Rec: 07/15/21 17:27 HH [id number]) Current Condition History of Current Condition Onset Date 2019 Current Complaints chronic back pain, weakness, difficulty in walking History of Current Condition Toribio is a 71 yo returning patient here for his debilitating chronic LBP. He had L4-L5 microdisectomy last year for his L4L5 ruptured disc. He then had significant loss of mobility and strength who now uses 4WW for all mobility. He bascially cannot stand straight and lay in prone position. He walks with a flexed posture to alleviate his pain. He saw his surgeon 2 months ago and did not recommend further back surgery. He had a course of PT with me but only limited progress (able to use hiking sticks to walk at one point). He has been going to the pool for water walking, mobility exercises and has been helpful for his strnegth and balance. He would like to do PT again to participate both land and aquative therapy. Personal Factors Other Personal Factors That May Effect overweight Therapy/Recovery previous heart attack CABG placement chronic back pain PT-OP-C Subjective Start: 07/15/21 16:54 Freq: Status: Active Protocol: Document 05/27/22 15:38 SAK (Rec: 05/27/22 15:46 [facility] [id number]) OP-PT Subjective Patient Comments Patient Comments Patient reports he feels he is improving with his walking, balance, and posture. Doesn't remember having difficulty walking sideways last session. PT-OP-D Balance Start: 07/15/21 16:54 Freq: Status: Active Protocol: Document 07/15/21 16:54 HH (Rec: 07/15/21 17:27 HH [id number]) Balance Tests Single Limb Standing Single Limb- Right unable Single Limb- Left unable PT-OP-G Mobility & Gait Start: 07/15/21 16:54 Freq: Status: Active Protocol: Document 07/15/21 16:54 HH (Rec: 07/15/21 17:27 [id number]) OP Mobility Evaluation Bed Mobility Supine to and from Sit log roll method OP Gait Assessment Gait Gait Assistance Required: Independent Assistive Devices Assistive Device 4 Wheeled Walker Gait Deviations General Gait Pattern Flexed Trunk Factors Limiting Gait Function Factors Limiting Gait Function Limited Range of Motion,Pain Comments Gait Comments pt walks wth a significant flexed posture with a hyperextended lumbar spine. He often has to stop to keep his walker close to his body. PT-OP-H Neuro Start: 07/15/21 16:54 Freq: Status: Active Protocol: Document 07/15/21 16:54 HH (Rec: 07/15/21 17:27 [id number]) Sensation Evaluation Gross Sensation Gross Sensation WNL Deep Tendon Reflex & Clonus Assessment Deep Tendon Reflex Bilateral Achilles Deep Tendon Reflex 2+ Normal Right Patellar Deep Tendon Reflex 2+ Normal Left Patellar Deep Tendon Reflex 0 Absent PT-OP-J Posture/Palpation/Skin Start: 07/15/21 16:54 Freq: Status: Active Protocol: Document 07/15/21 16:54 (Rec: 07/15/21 17:27 [id number]) Posture Evaluation Position Standing T-Spine Posture Increased Kyphosis L-Spine Posture Increased Lordosis,Flexed Hip Posture (L) Flexed,(R) Flexed Knee Posture (L) Excess Flexion,(R) Excess Flexion PT-OP-K Range of Motion Start: 07/15/21 16:54 Freq: Status: Active Protocol: Document 07/15/21 16:54 HH (Rec: 07/15/21 17:27 [id number]) Lumbar Spine Range of Motion Lumbar Spine Active Degrees Comments hip angle in standing (normal posture) = 28 degrees in flexion hip angle in standing ( extended posture) = 25 degrees in flexion, pain at low back. PT-OP-L Special Tests Start: 07/15/21 16:54 Freq: Status: Active Protocol: Document 07/15/21 16:54 HH (Rec: 07/15/21 17:27 [id number]) Special Tests Lumbar Spine Special Tests Slump Test Results -ve Straight Leg Raise Test Results -ve Comments no rad pain but extension pain with SLR on R. PT-OP-M Strength Start: 07/15/21 16:54 Freq: Status: Active Protocol: Document 07/15/21 16:54 HH (Rec: 07/15/21 17:27 HH [id number]) Hip Strength Hip Manual Muscle Testing Right Flexion (L2) 3+ Fair+ Extension (S1) 4- Good- Abduction 4- Good- Adduction 4- Good- Comments low back pain with SLR flexion Left Flexion (L2) 4- Good- Extension (S1) 4- Good- Abduction 4+ Good+ Adduction 4+ Good+ Knee Strength Knee Manual Muscle Testing Right Flexion (S2) 5 Normal Extension (L3) 5 Normal Left Flexion (S2) 5 Normal Extension (L3) 5 Normal Ankle/Foot Strength Ankle and Foot Manual Muscle Testing Right Dorsiflexion (L4) 5 Normal Plantarflexion (S1) 5 Normal Left Dorsiflexion (L4) 5 Normal Plantarflexion (S1) 5 Normal PT-OP-Q Treatments Start: 07/15/21 16:54 Freq: Status: Active Protocol: Document 02/24/22 10:37 SAK (Rec: 02/24/22 11:15 [facility] [id number]) Cardio Equipment Recumbent Stepper (Sci-Fit) Duration (Minutes) 7 Resistance 1 Seat Position 14 Other cues for neutral LE alignment, core stab Treadmill Duration (Minutes) 2 Speed 1.7 mph Incline 0 Other cues for upright posture, heavy use of UE Gym Equipment Sport Cord green Exercise Details fwd Cord/Resistance green Reps/Duration 10x Comments trekking pole Therapeutic Exercises Supine Exercises bridge Reps/Minutes 10x Sitting Exercises seated hip flex/rectus ab hali Reps/Minutes 10x Comments hands on thighs isometric Sitting Exercise Name core stab Comments emily hands on thighs, opp hand on thigh Standing Exercises shoulder extension Equipment Used L1 TB Reps/Minutes 10x Comments cues for neutral posture and core activation opp UE/LE lift Reps/Minutes 10x Comments UE support on wall, core activation PT-OP-R Modalities Start: 07/15/21 16:54 Freq: Status: Active Protocol: Document 02/24/22 10:37 SAK (Rec: 02/24/22 17:47 [facility] [id number]) Hot Pack/Cold Pack Treatment MHP LS Location B LS Patient Position Hooklying Comments strap around distal thighs PT-OP-S Aquatic Treatment Start: 07/15/21 16:54 Freq: Status: Active Protocol: Document 05/27/22 15:38 [facility] (Rec: 05/27/22 15:46 [facility] [id number]) Aquatics Treatment Pool Entry/Exit Pool Entry/Exit Method Stairs Assistance Independent Water Walking forward and side walk with swim fins Water Level Chest Level Walking Equipment swim fins Comments 2 laps forward only stop start jogging Water Level Chest Level Level of Assistance Verbal Cues Comments 2 laps stop/start with direction change Water Level Chest Level Comments 4 min Lunge Walk Water Level Waist Level Level of Assistance Standby Assistance Marching Water Level Chest Level Walking Equipment fins, paddles Level of Assistance Verbal Cues Sideways Water Level Chest Level Level of Assistance Verbal Cues Comments grapevine Lower Extremity Exercises hip ABD Body Position Standing Water Level Waist Level Equipment stretch cords Reps/Duration 2x 8 B deep kicks Details braced on steps Body Position Prone Water Level Waist Level Equipment Resistance Fins Reps/Duration 3x 10 Swim Strokes Crawl Equipment Fins Other Equipment Used snorkle Laps/Duration 4 x30M Comments improving speed, form, tolerance flutter kick Equipment Flotation Belt,Kickboard Laps/Duration 15 m x 4 Comments prone PT-OP-T Assessment and Plan Start: 07/15/21 16:54 Freq: Status: Active Protocol: Document 05/27/22 15:38 [facility] (Rec: 05/27/22 15:46 [facility] [id number]) Physical Therapy Assessment Impairments Impairments Activity Tolerance,Balance, Functional Activities, Functional Mobility,Gait,Pain, Posture,ROM,Soft Tissue Mobility,Strength,Transfers Goals weakness Impairment LE and core muscle weakness limiting function [employer] Goal (LTG) Patient will test at least 4+/ 5 all LE and trunk muscle groups to allow him to return to prior level of function. Will be independent and compliant with progressive HEP and aquatic exercise program. 04/01/22: goal progress, continue to progress his HEP both on land and in the pool. Patient has had limited PT visits past couple months but has remained compliant with current program and motivated to progress and make further gains. 05/13/22: no change LTG Duration 06/24/22 balance Impairment diminished balance scoring in moderate fall risk category Long-Term Goal (LTG) Improve balance with patient testing in low fall risk category on Colon Balance test and TUG test for improved safety and decreased risk of injury 04/01/22: patient tests in moderate fall risk category 05/14/22: still mod risk category LTG Duration 06/24/22 walk Impairment pt uses 4ww for all gait Short Term Goal (STG) pt will be able to walk with 2 hiking poles within home distance 10/13/21: goal met STG Duration goal met Long-Term Goal (LTG) pt will be able to walk with 2 hiking poles at home and community 10/13/21: goal met at home, still mostly uses 4WW in community 01/07/22: patient able to ambulate with trekking poles but for only short distance community ambulation and with exess forward trunk flexion. Updated goal: Patient will be able to ambulate safely in the home without assistive device and for 15 minutes outdoors/ community with walker improved postural alignment 04/01/22: recently moved back to using walker due to increase in back pain, but attempting to move back to using trekking poles. 05/13: using cane or trekking poles again LTG Duration 06/24/22 hip angle Impairment pt has a 28 degrees hip flexion angle in standing Short Term Goal (STG) pt will show improved lumbar mobility and tolerance for WB activities will be able to stand with <25 degrees hip flexion. 10/13/21: goal met STG Duration goal met [employer] Goal (LTG) pt will show improved lumbar mobility and tolerance for WB activities who will be able to stand with <25 degrees hip flexion. 01/07/22: goal progress 05/13/22: no further progress, most limited in standing tolerance. LTG Duration 06/24/22 Owestry Impairment pt scores 56 on Oswestry disability index score Short Term Goal (STG) pt will show improved overall mobility and strength by scoring <50 on Owestry 12/29/21: goal achieved. STG Duration goal met [employer] Goal (LTG) Patient will score less then 40 on Oswestry disability index score as measure of decreased pain and improved activity tolerance 12/29/21: goal progress 04/01/22: had recent exacerbation of pain so not met 9/14/22: no change since last seen LTG Duration 06/24/22 Physical Therapy Plan Frequency and Duration Frequency of Treatment 2x/Week Duration of treatment (weeks) 6 Plan of Care Start Date 05/13/22 Plan of Care End Date 06/24/22 Next Visit Focus/Plan Next Note Type Treatment Note Next Visit Plan Continue aquatic-based PT for strengthening, gait training, balance, core strengthening and stabilization, manual therapy techniques as needed for pain. Increase distance for front crawl stroke and add modified back crawl. Practice rolling and coming to standing when swimming in prone position. Emphasis on flutter kick as that is most difficult for him
--- NOTE | 2022-06-10 15:49 | PT.OTN ---
Current Diagnoses Spondylosis without myelopathy or radiculopathy, lumbar region (05/27/22) Physical Therapy Treatment Note PT-OP-A Visit Information Start: 07/15/21 16:54 Freq: Status: Active Protocol: Document 06/10/22 15:37 LJ (Rec: 06/10/22 15:49 LJ [id number]) Out-Patient Physical Therapy Visit Information Visit Information Visit Type Aquatic Treatment Note Visit Start Time 12:30 Visit Stop Time 01:15 Total Visit Minutes 45 Visit Number 94 Number of SHAREPOINT DESIGNER DEVELOPER Visits 1 PT-OP-B Current Condition Start: 07/15/21 16:54 Freq: Status: Active Protocol: Document 07/15/21 16:54 HH (Rec: 07/15/21 17:27 HH [id number]) Current Condition History of Current Condition Onset Date 2019 Current Complaints chronic back pain, weakness, difficulty in walking History of Current Condition Toribio is a 71 yo returning patient here for his debilitating chronic LBP. He had L4-L5 microdisectomy last year for his L4L5 ruptured disc. He then had significant loss of mobility and strength who now uses 4WW for all mobility. He bascially cannot stand straight and lay in prone position. He walks with a flexed posture to alleviate his pain. He saw his surgeon 2 months ago and did not recommend further back surgery. He had a course of PT with me but only limited progress (able to use hiking sticks to walk at one point). He has been going to the pool for water walking, mobility exercises and has been helpful for his strnegth and balance. He would like to do PT again to participate both land and aquative therapy. Personal Factors Other Personal Factors That May Effect overweight Therapy/Recovery previous heart attack CABG placement chronic back pain PT-OP-C Subjective Start: 07/15/21 16:54 Freq: Status: Active Protocol: Document 06/10/22 15:37 LJ (Rec: 06/10/22 15:49 LJ [id number]) OP-PT Subjective Patient Comments Patient Comments Pt slipped on deck prior to entry. Pool deck wet where he put his walking stick. He was able to prevent LOB and recovered his gait within a few steps. States he is feeling less pain in his back but it has been very gradual that he can't quantify it. PT-OP-D Balance Start: 07/15/21 16:54 Freq: Status: Active Protocol: Document 07/15/21 16:54 (Rec: 07/15/21 17:27 [id number]) Balance Tests Single Limb Standing Single Limb- Right unable Single Limb- Left unable PT-OP-G Mobility & Gait Start: 07/15/21 16:54 Freq: Status: Active Protocol: Document 07/15/21 16:54 HH (Rec: 07/15/21 17:27 [id number]) OP Mobility Evaluation Bed Mobility Supine to and from Sit log roll method OP Gait Assessment Gait Gait Assistance Required: Independent Assistive Devices Assistive Device 4 Wheeled Walker Gait Deviations General Gait Pattern Flexed Trunk Factors Limiting Gait Function Factors Limiting Gait Function Limited Range of Motion,Pain Comments Gait Comments pt walks wth a significant flexed posture with a hyperextended lumbar spine. He often has to stop to keep his walker close to his body. PT-OP-H Neuro Start: 07/15/21 16:54 Freq: Status: Active Protocol: Document 07/15/21 16:54 HH (Rec: 07/15/21 17:27 [id number]) Sensation Evaluation Gross Sensation Gross Sensation WNL Deep Tendon Reflex & Clonus Assessment Deep Tendon Reflex Bilateral Achilles Deep Tendon Reflex 2+ Normal Right Patellar Deep Tendon Reflex 2+ Normal Left Patellar Deep Tendon Reflex 0 Absent PT-OP-J Posture/Palpation/Skin Start: 07/15/21 16:54 Freq: Status: Active Protocol: Document 07/15/21 16:54 (Rec: 07/15/21 17:27 [id number]) Posture Evaluation Position Standing T-Spine Posture Increased Kyphosis L-Spine Posture Increased Lordosis,Flexed Hip Posture (L) Flexed,(R) Flexed Knee Posture (L) Excess Flexion,(R) Excess Flexion PT-OP-K Range of Motion Start: 07/15/21 16:54 Freq: Status: Active Protocol: Document 07/15/21 16:54 (Rec: 07/15/21 17:27 [id number]) Lumbar Spine Range of Motion Lumbar Spine Active Degrees Comments hip angle in standing (normal posture) = 28 degrees in flexion hip angle in standing ( extended posture) = 25 degrees in flexion, pain at low back. PT-OP-L Special Tests Start: 07/15/21 16:54 Freq: Status: Active Protocol: Document 07/15/21 16:54 HH (Rec: 07/15/21 17:27 HH [id number]) Special Tests Lumbar Spine Special Tests Slump Test Results -ve Straight Leg Raise Test Results -ve Comments no rad pain but extension pain with SLR on R. PT-OP-M Strength Start: 07/15/21 16:54 Freq: Status: Active Protocol: Document 07/15/21 16:54 HH (Rec: 07/15/21 17:27 [id number]) Hip Strength Hip Manual Muscle Testing Right Flexion (L2) 3+ Fair+ Extension (S1) 4- Good- Abduction 4- Good- Adduction 4- Good- Comments low back pain with SLR flexion Left Flexion (L2) 4- Good- Extension (S1) 4- Good- Abduction 4+ Good+ Adduction 4+ Good+ Knee Strength Knee Manual Muscle Testing Right Flexion (S2) 5 Normal Extension (L3) 5 Normal Left Flexion (S2) 5 Normal Extension (L3) 5 Normal Ankle/Foot Strength Ankle and Foot Manual Muscle Testing Right Dorsiflexion (L4) 5 Normal Plantarflexion (S1) 5 Normal Left Dorsiflexion (L4) 5 Normal Plantarflexion (S1) 5 Normal PT-OP-Q Treatments Start: 07/15/21 16:54 Freq: Status: Active Protocol: Document 02/24/22 10:37 SAK (Rec: 02/24/22 11:15 SAK [id number]) Cardio Equipment Recumbent Stepper (Sci-Fit) Duration (Minutes) 7 Resistance 1 Seat Position 14 Other cues for neutral LE alignment, core stab Treadmill Duration (Minutes) 2 Speed 1.7 mph Incline 0 Other cues for upright posture, heavy use of UE Gym Equipment Sport Cord green Exercise Details fwd Cord/Resistance green Reps/Duration 10x Comments trekking pole Therapeutic Exercises Supine Exercises bridge Reps/Minutes 10x Sitting Exercises seated hip flex/rectus ab hali Reps/Minutes 10x Comments hands on thighs isometric Sitting Exercise Name core stab Comments emily hands on thighs, opp hand on thigh Standing Exercises shoulder extension Equipment Used L1 TB Reps/Minutes 10x Comments cues for neutral posture and core activation opp UE/LE lift Reps/Minutes 10x Comments UE support on wall, core activation PT-OP-R Modalities Start: 07/15/21 16:54 Freq: Status: Active Protocol: Document 02/24/22 10:37 SAK (Rec: 02/24/22 17:47 SAK [id number]) Hot Pack/Cold Pack Treatment MHP LS Location B LS Patient Position Hooklying Comments strap around distal thighs PT-OP-S Aquatic Treatment Start: 07/15/21 16:54 Freq: Status: Active Protocol: Document 06/10/22 15:37 LJ (Rec: 06/10/22 15:49 LJ [id number]) Aquatics Treatment Pool Entry/Exit Pool Entry/Exit Method Stairs Assistance Independent Water Walking forward and side walk with swim fins Water Level Chest Level Walking Equipment swim fins Comments 2 laps forward only circumduction to tandem Water Level Chest Level Walking Equipment Ankle Floats Lunge Walk Water Level Waist Level Walking Equipment Ankle Floats Level of Assistance Standby Assistance [place] March Water Level Chest Level Walking Equipment Ankle Floats Marching Water Level Chest Level Walking Equipment Ankle Floats Level of Assistance Verbal Cues Sideways Water Level Chest Level Walking Equipment Ankle Floats Backwards Water Level Chest Level Walking Equipment Ankle Floats Forwards Water Level Chest Level Walking Equipment Ankle Floats Comments quick steps for 3 laps Lower Extremity Exercises hacky sac Body Position Standing Water Level Chest Level Equipment Ankle Floats Reps/Duration 20 B Comments hh on wall SLS Body Position Standing Water Level Waist Level Equipment Ankle Floats Reps/Duration 2x 20-35 sec B Comments improvement 4 way hip Body Position Standing Water Level Waist Level Equipment Ankle Floats Reps/Duration 10 x2 ea B Comments cues for posture Lower Extremity Stretches quads, HS, hip flexors Equipment Small Noodle Reps/Duration 2x30 each Comments gastrocs Upper Extremity Exercises chest press Body Position Standing Water Level Waist Level Equipment cords Reps/Duration 15 Comments foot braced on wall rows Body Position Standing Water Level Chest Level Equipment cords Reps/Duration 30 flex/ext Body Position Standing Water Level Chest Level Equipment cords Reps/Duration 15 HAB AD Body Position Standing Water Level Chest Level Equipment sm bells Reps/Duration 15 Spinal Exercises trunk rotation Body Position Standing Water Level Chest Level Reps/Duration 10 b Swim Strokes underwater breaststroke Equipment Fins Laps/Duration 30M Comments breath hold-unable to lift or turn head for breathing Backstroke Equipment Fins Laps/Duration 30m x 2 Comments butterfly arms one lap Crawl Equipment Fins Other Equipment Used snorkle Laps/Duration 2 x30M Comments improving speed, form, tolerance kick on back Other Equipment Used fins Laps/Duration 15 m x 2 PT-OP-T Assessment and Plan Start: 07/15/21 16:54 Freq: Status: Active Protocol: Document 06/10/22 15:37 LJ (Rec: 06/10/22 15:49 LJ [id number]) Physical Therapy Assessment Rehab Potential Rehabilitation Potential Fair Evaluation Complexity Number of Personal Factors/Comorbidities 3 or More Number of Body Systems Impaired 3 Clinical Presentation at Evaluation Stable Impairments Impairments Activity Tolerance,Balance, Functional Activities, Functional Mobility,Gait,Pain, Posture,ROM,Soft Tissue Mobility,Strength,Transfers Goals weakness Impairment LE and core muscle weakness limiting function Sports Team Marketing Intern Goal (LTG) Patient will test at least 4+/ 5 all LE and trunk muscle groups to allow him to return to prior level of function. Will be independent and compliant with progressive HEP and aquatic exercise program. 04/01/22: goal progress, continue to progress his HEP both on land and in the pool. Patient has had limited PT visits past couple months but has remained compliant with current program and motivated to progress and make further gains. 05/13/22: no change LTG Duration 06/24/22 balance Impairment diminished balance scoring in moderate fall risk category Halfway Goal (LTG) Improve balance with patient testing in low fall risk category on Colon Balance test and TUG test for improved safety and decreased risk of injury 04/01/22: patient tests in moderate fall risk category 05/14/22: still mod risk category LTG Duration 06/24/22 walk Impairment pt uses 4ww for all gait Short Term Goal (STG) pt will be able to walk with 2 hiking poles within home distance 10/13/21: goal met STG Duration goal met Halfway Goal (LTG) pt will be able to walk with 2 hiking poles at home and community 10/13/21: goal met at home, still mostly uses 4WW in community 01/07/22: patient able to ambulate with trekking poles but for only short distance community ambulation and with exess forward trunk flexion. Updated goal: Patient will be able to ambulate safely in the home without assistive device and for 15 minutes outdoors/ community with walker improved postural alignment 04/01/22: recently moved back to using walker due to increase in back pain, but attempting to move back to using trekking poles. 05/13: using cane or trekking poles again LTG Duration 06/24/22 hip angle Impairment pt has a 28 degrees hip flexion angle in standing Short Term Goal (STG) pt will show improved lumbar mobility and tolerance for WB activities will be able to stand with <25 degrees hip flexion. 10/13/21: goal met STG Duration goal met Sports Team Marketing Intern Goal (LTG) pt will show improved lumbar mobility and tolerance for WB activities who will be able to stand with <25 degrees hip flexion. 01/07/22: goal progress 05/13/22: no further progress, most limited in standing tolerance. LTG Duration 06/24/22 Owestry Impairment pt scores 56 on Oswestry disability index score Short Term Goal (STG) pt will show improved overall mobility and strength by scoring <50 on Owestry 12/29/21: goal achieved. STG Duration goal met Halfway Goal (LTG) Patient will score less then 40 on Oswestry disability index score as measure of decreased pain and improved activity tolerance 12/29/21: goal progress 04/01/22: had recent exacerbation of pain so not met 05/13/22: no change since last seen LTG Duration 06/24/22 Progress Towards Goals Progress Towards Goals Slow Progress due to Activity Tolerance Assessment Summary Assessment Pt is improving with balance and strength. He had no difficulty with ankle floats while walking exercises or standing LE exercises. Endurance is also improving Continue aquatic therapy increasing level of difficulty as tolerated. He is very faithful going to the pool several days per week and will perform same exercises as he does during treatment sessions if able. Physical Therapy Plan Frequency and Duration Frequency of Treatment 2x/Week Duration of treatment (weeks) 6 Plan of Care Start Date 05/13/22 Plan of Care End Date 06/24/22 Therapeutic Interventions Therapeutic Interventions Aquatic Therapy,Balance Training,Gait Training,Home Exercise Program,Joint Mobilizations,Manual Therapy, Neuromuscular Re-education, Patient/Caregiver Education, Self-Care/Home Management,Soft Tissue Mobilization,Taping, Therapeutic Activities, Therapeutic Exercises Modalities Cold Pack/Ice Massage,Electric Stimulation,Hot Packs, Infrared Therapy,Paraffin Bath ,Traction- Mechanical, Ultrasound Next Visit Focus/Plan Next Note Type Treatment Note Next Visit Plan Continue aquatic-based PT for strengthening, gait training, balance, core strengthening and stabilization, manual therapy techniques as needed for pain. Increase distance for front crawl stroke and add modified back crawl. Practice rolling and coming to standing when swimming in prone position. Emphasis on flutter kick as that is most difficult for him
--- NOTE | 2022-06-17 14:39 | PT.OTN ---
Current Diagnoses Spondylosis without myelopathy or radiculopathy, lumbar region (06/17/22) Physical Therapy Treatment Note PT-OP-A Visit Information Start: 07/15/21 16:54 Freq: Status: Active Protocol: Document 06/17/22 14:24 LJ (Rec: 06/17/22 14:39 LJ [id number]) Out-Patient Physical Therapy Visit Information Visit Information Visit Type Aquatic Treatment Note Visit Start Time 12:30 Visit Stop Time 01:15 Total Visit Minutes 45 Visit Number 95 Number of MUNITIONS HANDLER Visits 2 PT-OP-B Current Condition Start: 07/15/21 16:54 Freq: Status: Active Protocol: Document 07/15/21 16:54 HH (Rec: 07/15/21 17:27 HH [id number]) Current Condition History of Current Condition Onset Date 2019 Current Complaints chronic back pain, weakness, difficulty in walking History of Current Condition Toribio is a 71 yo returning patient here for his debilitating chronic LBP. He had L4-L5 microdisectomy last year for his L4L5 ruptured disc. He then had significant loss of mobility and strength who now uses 4WW for all mobility. He bascially cannot stand straight and lay in prone position. He walks with a flexed posture to alleviate his pain. He saw his surgeon 2 months ago and did not recommend further back surgery. He had a course of PT with me but only limited progress (able to use hiking sticks to walk at one point). He has been going to the pool for water walking, mobility exercises and has been helpful for his strnegth and balance. He would like to do PT again to participate both land and aquative therapy. Personal Factors Other Personal Factors That May Effect overweight Therapy/Recovery previous heart attack CABG placement chronic back pain PT-OP-C Subjective Start: 07/15/21 16:54 Freq: Status: Active Protocol: Document 06/17/22 14:24 LJ (Rec: 06/17/22 14:39 [id number]) OP-PT Subjective Patient Comments Patient Comments Pt reports he has started taking NSAIDS again for back pain and it has been working for pain relief. States he has no pain in the pool with most of the exercises. PT-OP-D Balance Start: 07/15/21 16:54 Freq: Status: Active Protocol: Document 07/15/21 16:54 HH (Rec: 07/15/21 17:27 [id number]) Balance Tests Single Limb Standing Single Limb- Right unable Single Limb- Left unable PT-OP-G Mobility & Gait Start: 07/15/21 16:54 Freq: Status: Active Protocol: Document 07/15/21 16:54 HH (Rec: 07/15/21 17:27 [id number]) OP Mobility Evaluation Bed Mobility Supine to and from Sit log roll method OP Gait Assessment Gait Gait Assistance Required: Independent Assistive Devices Assistive Device 4 Wheeled Walker Gait Deviations General Gait Pattern Flexed Trunk Factors Limiting Gait Function Factors Limiting Gait Function Limited Range of Motion,Pain Comments Gait Comments pt walks wth a significant flexed posture with a hyperextended lumbar spine. He often has to stop to keep his walker close to his body. PT-OP-H Neuro Start: 07/15/21 16:54 Freq: Status: Active Protocol: Document 07/15/21 16:54 HH (Rec: 07/15/21 17:27 [id number]) Sensation Evaluation Gross Sensation Gross Sensation WNL Deep Tendon Reflex & Clonus Assessment Deep Tendon Reflex Bilateral Achilles Deep Tendon Reflex 2+ Normal Right Patellar Deep Tendon Reflex 2+ Normal Left Patellar Deep Tendon Reflex 0 Absent PT-OP-J Posture/Palpation/Skin Start: 07/15/21 16:54 Freq: Status: Active Protocol: Document 07/15/21 16:54 (Rec: 07/15/21 17:27 [id number]) Posture Evaluation Position Standing T-Spine Posture Increased Kyphosis L-Spine Posture Increased Lordosis,Flexed Hip Posture (L) Flexed,(R) Flexed Knee Posture (L) Excess Flexion,(R) Excess Flexion PT-OP-K Range of Motion Start: 07/15/21 16:54 Freq: Status: Active Protocol: Document 07/15/21 16:54 (Rec: 07/15/21 17:27 [id number]) Lumbar Spine Range of Motion Lumbar Spine Active Degrees Comments hip angle in standing (normal posture) = 28 degrees in flexion hip angle in standing ( extended posture) = 25 degrees in flexion, pain at low back. PT-OP-L Special Tests Start: 07/15/21 16:54 Freq: Status: Active Protocol: Document 07/15/21 16:54 (Rec: 07/15/21 17:27 [id number]) Special Tests Lumbar Spine Special Tests Slump Test Results -ve Straight Leg Raise Test Results -ve Comments no rad pain but extension pain with SLR on R. PT-OP-M Strength Start: 07/15/21 16:54 Freq: Status: Active Protocol: Document 07/15/21 16:54 (Rec: 07/15/21 17:27 [id number]) Hip Strength Hip Manual Muscle Testing Right Flexion (L2) 3+ Fair+ Extension (S1) 4- Good- Abduction 4- Good- Adduction 4- Good- Comments low back pain with SLR flexion Left Flexion (L2) 4- Good- Extension (S1) 4- Good- Abduction 4+ Good+ Adduction 4+ Good+ Knee Strength Knee Manual Muscle Testing Right Flexion (S2) 5 Normal Extension (L3) 5 Normal Left Flexion (S2) 5 Normal Extension (L3) 5 Normal Ankle/Foot Strength Ankle and Foot Manual Muscle Testing Right Dorsiflexion (L4) 5 Normal Plantarflexion (S1) 5 Normal Left Dorsiflexion (L4) 5 Normal Plantarflexion (S1) 5 Normal PT-OP-Q Treatments Start: 07/15/21 16:54 Freq: Status: Active Protocol: Document 02/24/22 10:37 SAK (Rec: 02/24/22 11:15 [facility] [id number]) Cardio Equipment Recumbent Stepper (Sci-Fit) Duration (Minutes) 7 Resistance 1 Seat Position 14 Other cues for neutral LE alignment, core stab Treadmill Duration (Minutes) 2 Speed 1.7 mph Incline 0 Other cues for upright posture, heavy use of UE Gym Equipment Sport Cord green Exercise Details fwd Cord/Resistance green Reps/Duration 10x Comments trekking pole Therapeutic Exercises Supine Exercises bridge Reps/Minutes 10x Sitting Exercises seated hip flex/rectus ab hali Reps/Minutes 10x Comments hands on thighs isometric Sitting Exercise Name core stab Comments emily hands on thighs, opp hand on thigh Standing Exercises shoulder extension Equipment Used L1 TB Reps/Minutes 10x Comments cues for neutral posture and core activation opp UE/LE lift Reps/Minutes 10x Comments UE support on wall, core activation PT-OP-R Modalities Start: 07/15/21 16:54 Freq: Status: Active Protocol: Document 02/24/22 10:37 SAK (Rec: 02/24/22 17:47 SAK [id number]) Hot Pack/Cold Pack Treatment MHP LS Location B LS Patient Position Hooklying Comments strap around distal thighs PT-OP-S Aquatic Treatment Start: 07/15/21 16:54 Freq: Status: Active Protocol: Document 06/17/22 14:24 LJ (Rec: 06/17/22 14:39 LJ [id number]) Aquatics Treatment Pool Entry/Exit Pool Entry/Exit Method Stairs Assistance Independent Water Walking circumduction to tandem Water Level Chest Level Walking Equipment Ankle Floats stop start jogging Water Level Chest Level Walking Equipment Ankle Floats Level of Assistance Verbal Cues Comments 2 laps stop/start with direction change Water Level Chest Level Walking Equipment Ankle Floats Comments 4 min Lunge Walk Water Level Waist Level Walking Equipment Ankle Floats Level of Assistance Standby Assistance [place] March Water Level Chest Level Walking Equipment Ankle Floats Marching Water Level Chest Level Walking Equipment Ankle Floats Level of Assistance Verbal Cues Comments reaching opp side Sideways Water Level Chest Level Walking Equipment Ankle Floats Comments lg steps Backwards Water Level Chest Level Walking Equipment Ankle Floats Forwards Water Level Chest Level Walking Equipment Ankle Floats Comments quick steps for 2 laps Lower Extremity Exercises hip ABD Body Position Standing Water Level Waist Level Equipment stretch cords, ankle floats Reps/Duration 2x 8 B Comments ADD also deep kicks Details braced on steps Body Position Prone Water Level Waist Level Equipment Ankle Floats Reps/Duration 3x 10 kick back Details facing wall Body Position Standing Water Level Waist Level Equipment stretch cords, ankle floats Reps/Duration 2x 8 B SLS Body Position Standing Water Level Waist Level Equipment Ankle Floats Reps/Duration 3x B Comments fl/ex opp LE Lower Extremity Stretches quads, HS, hip flexors Equipment Small Noodle Reps/Duration 2x30 each Comments gastrocs Upper Extremity Exercises chest press Body Position Standing Water Level Waist Level Equipment cords Reps/Duration 15 Comments foot braced on wall rows Body Position Standing Water Level Chest Level Equipment cords Reps/Duration 30 flex/ext Body Position Standing Water Level Chest Level Equipment cords Reps/Duration 15 HAB AD Body Position Standing Water Level Chest Level Equipment sm bells Reps/Duration 15 Spinal Exercises paloff press Body Position Standing Water Level Waist Level Equipment cords Reps/Duration 12 B Comments for glute strengthening and core stability Balance step up on boxes Details forward and side Water Level Chest Level Equipment ankle floats Reps/Duration 10 B Comments slow motion to prevent plopping off STEP Swim Strokes Crawl Equipment Fins Other Equipment Used snorkle Laps/Duration 4 x30M Comments improving speed, form, tolerance kick on back Equipment Fins,Flotation Belt Laps/Duration 15M x4 PT-OP-T Assessment and Plan Start: 07/15/21 16:54 Freq: Status: Active Protocol: Document 06/17/22 14:24 BRET (Rec: 06/17/22 14:39 BRET [id number]) Physical Therapy Assessment Rehab Potential Rehabilitation Potential Fair Evaluation Complexity Number of Personal Factors/Comorbidities 3 or More Number of Body Systems Impaired 3 Clinical Presentation at Evaluation Stable Impairments Impairments Activity Tolerance,Balance, Functional Activities, Functional Mobility,Gait,Pain, Posture,ROM,Soft Tissue Mobility,Strength,Transfers Goals weakness Impairment LE and core muscle weakness limiting function [employer] Goal (LTG) Patient will test at least 4+/ 5 all LE and trunk muscle groups to allow him to return to prior level of function. Will be independent and compliant with progressive HEP and aquatic exercise program. 04/01/22: goal progress, continue to progress his HEP both on land and in the pool. Patient has had limited PT visits past couple months but has remained compliant with current program and motivated to progress and make further gains. 05/13/22: no change LTG Duration 06/24/22 balance Impairment diminished balance scoring in moderate fall risk category Half-Way Goal (LTG) Improve balance with patient testing in low fall risk category on Colon Balance test and TUG test for improved safety and decreased risk of injury 04/01/22: patient tests in moderate fall risk category 05/14/22: still mod risk category LTG Duration 06/24/22 walk Impairment pt uses 4ww for all gait Short Term Goal (STG) pt will be able to walk with 2 hiking poles within home distance 10/13/21: goal met STG Duration goal met [employer] Goal (LTG) pt will be able to walk with 2 hiking poles at home and community 10/13/21: goal met at home, still mostly uses 4WW in community 01/07/22: patient able to ambulate with trekking poles but for only short distance community ambulation and with exess forward trunk flexion. Updated goal: Patient will be able to ambulate safely in the home without assistive device and for 15 minutes outdoors/ community with walker improved postural alignment 04/01/22: recently moved back to using walker due to increase in back pain, but attempting to move back to using trekking poles. 05/13: using cane or trekking poles again LTG Duration 06/24/22 hip angle Impairment pt has a 28 degrees hip flexion angle in standing Short Term Goal (STG) pt will show improved lumbar mobility and tolerance for WB activities will be able to stand with <25 degrees hip flexion. 10/13/21: goal met STG Duration goal met [employer] Goal (LTG) pt will show improved lumbar mobility and tolerance for WB activities who will be able to stand with <25 degrees hip flexion. 01/07/22: goal progress 05/13/22: no further progress, most limited in standing tolerance. LTG Duration 06/24/22 Owestry Impairment pt scores 56 on Oswestry disability index score Short Term Goal (STG) pt will show improved overall mobility and strength by scoring <50 on Owestry 12/29/21: goal achieved. STG Duration goal met [employer] Goal (LTG) Patient will score less then 40 on Oswestry disability index score as measure of decreased pain and improved activity tolerance 12/29/21: goal progress 04/01/22: had recent exacerbation of pain so not met 05/13/22: no change since last seen LTG Duration 06/24/22 Progress Towards Goals Progress Towards Goals Slow Progress due to Activity Tolerance Assessment Summary Assessment Pt continues to progress activity tolerance and strength. Still has challenges stopping forward motion occasionally when moving quickly. Still has pain in left shoulder with front crawl stroke due to inability to roll torso for catch portion of stroke. He will benefit from continued aquatic therapy to improve balance, strength, and flexibility. Physical Therapy Plan Frequency and Duration Frequency of Treatment 2x/Week Duration of treatment (weeks) 6 Plan of Care Start Date 05/13/22 Plan of Care End Date 06/24/22 Therapeutic Interventions Therapeutic Interventions Aquatic Therapy,Balance Training,Gait Training,Home Exercise Program,Joint Mobilizations,Manual Therapy, Neuromuscular Re-education, Patient/Caregiver Education, Self-Care/Home Management,Soft Tissue Mobilization,Taping, Therapeutic Activities, Therapeutic Exercises Modalities Cold Pack/Ice Massage,Electric Stimulation,Hot Packs, Infrared Therapy,Paraffin Bath ,Traction- Mechanical, Ultrasound Next Visit Focus/Plan Next Note Type Treatment Note Next Visit Plan Continue aquatic-based PT for strengthening, gait training, balance, core strengthening and stabilization, manual therapy techniques as needed for pain. Increase distance for front crawl stroke and add modified back crawl. Practice rolling and coming to standing when swimming in prone position. Emphasis on flutter kick as that is most difficult for him
--- NOTE | 2022-06-24 16:33 | PT.OTN ---
Current Diagnoses Spondylosis without myelopathy or radiculopathy, lumbar region (06/24/22) Physical Therapy Treatment Note PT-OP-A Visit Information Start: 07/15/21 16:54 Freq: Status: Active Protocol: Document 06/25/22 16:17 [facility] (Rec: 06/25/22 16:28 [facility] [id number]) Out-Patient Physical Therapy Visit Information Visit Information Visit Type Aquatic Treatment Note Visit Start Time 12:30 Visit Stop Time 13:15 Total Visit Minutes 45 Visit Number 96 PT-OP-B Current Condition Start: 07/15/21 16:54 Freq: Status: Active Protocol: Document 07/15/21 16:54 HH (Rec: 07/15/21 17:27 HH [id number]) Current Condition History of Current Condition Onset Date 2019 Current Complaints chronic back pain, weakness, difficulty in walking History of Current Condition Toribio is a 71 yo returning patient here for his debilitating chronic LBP. He had L4-L5 microdisectomy last year for his L4L5 ruptured disc. He then had significant loss of mobility and strength who now uses 4WW for all mobility. He bascially cannot stand straight and lay in prone position. He walks with a flexed posture to alleviate his pain. He saw his surgeon 2 months ago and did not recommend further back surgery. He had a course of PT with me but only limited progress (able to use hiking sticks to walk at one point). He has been going to the pool for water walking, mobility exercises and has been helpful for his strnegth and balance. He would like to do PT again to participate both land and aquative therapy. Personal Factors Other Personal Factors That May Effect overweight Therapy/Recovery previous heart attack CABG placement chronic back pain PT-OP-C Subjective Start: 07/15/21 16:54 Freq: Status: Active Protocol: Document 06/25/22 16:17 [facility] (Rec: 06/25/22 16:28 [facility] [id number]) OP-PT Subjective Patient Comments Patient Comments Patient states he is working hard to improve his endurance and strength. PT-OP-D Balance Start: 07/15/21 16:54 Freq: Status: Active Protocol: Document 07/15/21 16:54 HH (Rec: 07/15/21 17:27 HH [id number]) Balance Tests Single Limb Standing Single Limb- Right unable Single Limb- Left unable PT-OP-G Mobility & Gait Start: 07/15/21 16:54 Freq: Status: Active Protocol: Document 07/15/21 16:54 HH (Rec: 07/15/21 17:27 [id number]) OP Mobility Evaluation Bed Mobility Supine to and from Sit log roll method OP Gait Assessment Gait Gait Assistance Required: Independent Assistive Devices Assistive Device 4 Wheeled Walker Gait Deviations General Gait Pattern Flexed Trunk Factors Limiting Gait Function Factors Limiting Gait Function Limited Range of Motion,Pain Comments Gait Comments pt walks wth a significant flexed posture with a hyperextended lumbar spine. He often has to stop to keep his walker close to his body. PT-OP-H Neuro Start: 07/15/21 16:54 Freq: Status: Active Protocol: Document 07/15/21 16:54 HH (Rec: 07/15/21 17:27 [id number]) Sensation Evaluation Gross Sensation Gross Sensation WNL Deep Tendon Reflex & Clonus Assessment Deep Tendon Reflex Bilateral Achilles Deep Tendon Reflex 2+ Normal Right Patellar Deep Tendon Reflex 2+ Normal Left Patellar Deep Tendon Reflex 0 Absent PT-OP-J Posture/Palpation/Skin Start: 07/15/21 16:54 Freq: Status: Active Protocol: Document 07/15/21 16:54 HH (Rec: 07/15/21 17:27 [id number]) Posture Evaluation Position Standing T-Spine Posture Increased Kyphosis L-Spine Posture Increased Lordosis,Flexed Hip Posture (L) Flexed,(R) Flexed Knee Posture (L) Excess Flexion,(R) Excess Flexion PT-OP-K Range of Motion Start: 07/15/21 16:54 Freq: Status: Active Protocol: Document 07/15/21 16:54 HH (Rec: 07/15/21 17:27 [id number]) Lumbar Spine Range of Motion Lumbar Spine Active Degrees Comments hip angle in standing (normal posture) = 28 degrees in flexion hip angle in standing ( extended posture) = 25 degrees in flexion, pain at low back. PT-OP-L Special Tests Start: 07/15/21 16:54 Freq: Status: Active Protocol: Document 07/15/21 16:54 HH (Rec: 07/15/21 17:27 [id number]) Special Tests Lumbar Spine Special Tests Slump Test Results -ve Straight Leg Raise Test Results -ve Comments no rad pain but extension pain with SLR on R. PT-OP-M Strength Start: 07/15/21 16:54 Freq: Status: Active Protocol: Document 07/15/21 16:54 (Rec: 07/15/21 17:27 [id number]) Hip Strength Hip Manual Muscle Testing Right Flexion (L2) 3+ Fair+ Extension (S1) 4- Good- Abduction 4- Good- Adduction 4- Good- Comments low back pain with SLR flexion Left Flexion (L2) 4- Good- Extension (S1) 4- Good- Abduction 4+ Good+ Adduction 4+ Good+ Knee Strength Knee Manual Muscle Testing Right Flexion (S2) 5 Normal Extension (L3) 5 Normal Left Flexion (S2) 5 Normal Extension (L3) 5 Normal Ankle/Foot Strength Ankle and Foot Manual Muscle Testing Right Dorsiflexion (L4) 5 Normal Plantarflexion (S1) 5 Normal Left Dorsiflexion (L4) 5 Normal Plantarflexion (S1) 5 Normal PT-OP-Q Treatments Start: 07/15/21 16:54 Freq: Status: Active Protocol: Document 02/24/22 10:37 SAK (Rec: 02/24/22 11:15 [facility] [id number]) Cardio Equipment Recumbent Stepper (Sci-Fit) Duration (Minutes) 7 Resistance 1 Seat Position 14 Other cues for neutral LE alignment, core stab Treadmill Duration (Minutes) 2 Speed 1.7 mph Incline 0 Other cues for upright posture, heavy use of UE Gym Equipment Sport Cord green Exercise Details fwd Cord/Resistance green Reps/Duration 10x Comments trekking pole Therapeutic Exercises Supine Exercises bridge Reps/Minutes 10x Sitting Exercises seated hip flex/rectus ab hali Reps/Minutes 10x Comments hands on thighs isometric Sitting Exercise Name core stab Comments emily hands on thighs, opp hand on thigh Standing Exercises shoulder extension Equipment Used L1 TB Reps/Minutes 10x Comments cues for neutral posture and core activation opp UE/LE lift Reps/Minutes 10x Comments UE support on wall, core activation PT-OP-R Modalities Start: 07/15/21 16:54 Freq: Status: Active Protocol: Document 02/24/22 10:37 SAK (Rec: 02/24/22 17:47 [facility] [id number]) Hot Pack/Cold Pack Treatment MHP LS Location B LS Patient Position Hooklying Comments strap around distal thighs PT-OP-S Aquatic Treatment Start: 07/15/21 16:54 Freq: Status: Active Protocol: Document 06/25/22 16:17 [facility] (Rec: 06/25/22 16:28 [facility] [id number]) Aquatics Treatment Water Walking forward and side walk with swim fins Water Level Chest Level Walking Equipment swim fins Comments 2 laps forward and october only stop start jogging Water Level Chest Level Walking Equipment Ankle Floats Level of Assistance Verbal Cues Comments 2 laps Lunge Walk Water Level Waist Level Walking Equipment Ankle Floats Level of Assistance Standby Assistance [place] October Water Level Chest Level Walking Equipment Ankle Floats Marching Water Level Chest Level Walking Equipment Ankle Floats Level of Assistance Verbal Cues Comments reaching opp side Backwards Water Level Chest Level Walking Equipment Ankle Floats Forwards Water Level Chest Level Walking Equipment Ankle Floats Comments quick steps for 2 laps Lower Extremity Exercises hip ABD Body Position Standing Water Level Waist Level Equipment Ankle Floats Reps/Duration 2x 8 B Comments ADD also 4 way hip Body Position Standing Water Level Waist Level Equipment Ankle Floats Reps/Duration 10 x2 ea B Comments cues for posture Lower Extremity Stretches quads, HS, hip flexors Equipment Small Noodle Reps/Duration 2x30 each Comments gastrocs Upper Extremity Exercises chest press Body Position Standing Water Level Waist Level Equipment cords Reps/Duration 15 Comments foot braced on wall rows Body Position Standing Water Level Chest Level Equipment cords Reps/Duration 30 HAB AD Body Position Standing Water Level Chest Level Equipment sm bells Reps/Duration 15 Spinal Exercises paloff press Body Position Standing Water Level Waist Level Equipment cords Reps/Duration 12 B Comments for glute strengthening and core stability Swim Strokes Crawl Equipment Fins Other Equipment Used snorkle Laps/Duration 4 x30M Comments improving speed, form, tolerance kick on back Equipment Fins,Flotation Belt Laps/Duration 15M x4 PT-OP-T Assessment and Plan Start: 07/15/21 16:54 Freq: Status: Active Protocol: Document 06/25/22 16:17 [facility] (Rec: 06/25/22 16:28 [facility] [id number]) Physical Therapy Assessment Rehab Potential Rehabilitation Potential Fair Evaluation Complexity Number of Personal Factors/Comorbidities 3 or More Number of Body Systems Impaired 3 Clinical Presentation at Evaluation Stable Impairments Impairments Activity Tolerance,Balance, Functional Activities, Functional Mobility,Gait,Pain, Posture,ROM,Soft Tissue Mobility,Strength,Transfers Goals HEP Impairment lacking HEP and independence in aquatic exercise program Snf Goal (LTG) Patient to be independent and compliant with HEP and aquatic exercise program. LTG Duration 08/06/22 weakness Impairment LE and core muscle weakness limiting function Snf Goal (LTG) Patient will test at least 4+/ 5 all LE and trunk muscle groups to allow him to return to prior level of function. Will be independent and compliant with progressive HEP and aquatic exercise program. 04/01/22: goal progress, continue to progress his HEP both on land and in the pool. Patient has had limited PT visits past couple months but has remained compliant with current program and motivated to progress and make further gains. 05/13/22: no change 06/24/22: good goal progress with strength improved to 4/5 LE's 4-/5 trunk LTG Duration 08/06/22 balance Impairment diminished balance scoring in moderate fall risk category Snf Goal (LTG) Improve balance with patient testing in low fall risk category on Colon Balance test and TUG test for improved safety and decreased risk of injury 04/01/22: patient tests in moderate fall risk category 05/14/22: still mod risk category 06/24/22: improved but stil in mod fall risk category LTG Duration 08/06/22 walk Impairment pt uses 4ww for all gait Short Term Goal (STG) pt will be able to walk with 2 hiking poles within home distance 10/13/21: goal met STG Duration goal met Outside Plant Engineer Goal (LTG) pt will be able to walk with 2 hiking poles at home and community 10/13/21: goal met at home, still mostly uses 4WW in community 01/07/22: patient able to ambulate with trekking poles but for only short distance community ambulation and with exess forward trunk flexion. Updated goal: Patient will be able to ambulate safely in the home without assistive device and for 15 minutes outdoors/ community with walker improved postural alignment 04/01/22: recently moved back to using walker due to increase in back pain, but attempting to move back to using trekking poles. 05/13: using cane or trekking poles again LTG Duration 08/06/22 hip angle Impairment pt has a 28 degrees hip flexion angle in standing Short Term Goal (STG) pt will show improved lumbar mobility and tolerance for WB activities will be able to stand with <25 degrees hip flexion. 10/13/21: goal met STG Duration goal met Snf Goal (LTG) pt will show improved lumbar mobility and tolerance for WB activities who will be able to stand with <25 degrees hip flexion. 01/07/22: goal progress 05/13/22: no further progress, most limited in standing tolerance. 06/24/22: improved but variable, some days worse than others. LTG Duration 08/06/22 Owestry Impairment pt scores 56 on Oswestry disability index score Short Term Goal (STG) pt will show improved overall mobility and strength by scoring <50 on Owestry 12/29/21: goal achieved. STG Duration goal met Outside Plant Engineer Goal (LTG) Patient will score less then 40 on Oswestry disability index score as measure of decreased pain and improved activity tolerance 12/29/21: goal progress 04/01/22: had recent exacerbation of pain so not met 05/13/22: no change since last seen 06/24/22: 48% LTG Duration 08/06/22 Progress Towards Goals Progress Towards Goals Slow Progress due to Activity Tolerance,Slow Progress due to Medical Issues Assessment Summary Assessment Patient continues to benefit from aquatic PT and make progress toward goals. Recommend continued PT to help him continue to improve his function and safety and reach his PT goals. Physical Therapy Plan Frequency and Duration Frequency of Treatment 2x/Week Duration of treatment (weeks) 6 Plan of Care Start Date 06/24/22 Plan of Care End Date 08/06/22 Therapeutic Interventions Therapeutic Interventions Aquatic Therapy,Balance Training,Gait Training,Home Exercise Program,Joint Mobilizations,Manual Therapy, Neuromuscular Re-education, Patient/Caregiver Education, Self-Care/Home Management,Soft Tissue Mobilization,Taping, Therapeutic Activities, Therapeutic Exercises Modalities Cold Pack/Ice Massage,Electric Stimulation,Hot Packs, Infrared Therapy,Paraffin Bath ,Traction- Mechanical, Ultrasound Next Visit Focus/Plan Next Note Type Treatment Note Next Visit Plan Continue aquatic-based PT for strengthening, gait training, balance, core strengthening and stabilization, manual therapy techniques as needed for pain. Increase distance for front crawl stroke and add modified back crawl. Practice rolling and coming to standing when swimming in prone position. Emphasis on flutter kick as that is most difficult for him due to weakness. Work toward transition to independent aquatic exercies program.
--- NOTE | 2022-06-24 16:33 | PT.OPPOC ---
Physical, Occupational & Speech Therapy At [facility] Current Diagnoses Spondylosis without myelopathy or radiculopathy, lumbar region (06/24/22) Visit Care Team Role Provider Type Benjamin Aguilera DO Primary Care Provider Physician Specialty: Family Practice Address: [address] [place] [address], [id number] Email: [email or web address] Robin Lee MD Family Provider Physician Specialty: Internal Medicine Address: [address] [place] [address], [id number] Email: [email or web address] AMADA Knox Attending Provider Non-Staff Referring Provider Specialty: Medical Address: [address] [place] [address], [address], [facility] Email: Plan Of Care PT-OP-T Assessment and Plan Start: 07/15/21 16:54 Freq: Status: Active Protocol: Document 06/25/22 16:17 KIKI (Rec: 06/25/22 16:28 [facility] [id number]) Physical Therapy Assessment Rehab Potential Rehabilitation Potential Fair Evaluation Complexity Number of Personal Factors/Comorbidities 3 or More Number of Body Systems Impaired 3 Clinical Presentation at Evaluation Stable Impairments Impairments Activity Tolerance,Balance, Functional Activities, Functional Mobility,Gait,Pain, Posture,ROM,Soft Tissue Mobility,Strength,Transfers Goals HEP Impairment lacking HEP and independence in aquatic exercise program [facility]iary Goal (LTG) Patient to be independent and compliant with HEP and aquatic exercise program. LTG Duration 08/06/22 weakness Impairment LE and core muscle weakness limiting function Mixing Tank Operator Goal (LTG) Patient will test at least 4+/ 5 all LE and trunk muscle groups to allow him to return to prior level of function. Will be independent and compliant with progressive HEP and aquatic exercise program. 04/01/22: goal progress, continue to progress his HEP both on land and in the pool. Patient has had limited PT visits past couple months but has remained compliant with current program and motivated to progress and make further gains. 05/13/22: no change 06/24/22: good goal progress with strength improved to 4/5 LE's 4-/5 trunk LTG Duration 08/06/22 balance Impairment diminished balance scoring in moderate fall risk category [facility]iary Goal (LTG) Improve balance with patient testing in low fall risk category on Colon Balance test and TUG test for improved safety and decreased risk of injury 04/01/22: patient tests in moderate fall risk category 05/14/22: still mod risk category 06/24/22: improved but stil in mod fall risk category LTG Duration 08/06/22 walk Impairment pt uses 4ww for all gait Short Term Goal (STG) pt will be able to walk with 2 hiking poles within home distance 10/13/21: goal met STG Duration goal met [facility]iary Goal (LTG) pt will be able to walk with 2 hiking poles at home and community 10/13/21: goal met at home, still mostly uses 4WW in community 01/07/22: patient able to ambulate with trekking poles but for only short distance community ambulation and with exess forward trunk flexion. Updated goal: Patient will be able to ambulate safely in the home without assistive device and for 15 minutes outdoors/ community with walker improved postural alignment 04/01/22: recently moved back to using walker due to increase in back pain, but attempting to move back to using trekking poles. 05/13: using cane or trekking poles again LTG Duration 08/06/22 hip angle Impairment pt has a 28 degrees hip flexion angle in standing Short Term Goal (STG) pt will show improved lumbar mobility and tolerance for WB activities will be able to stand with <25 degrees hip flexion. 10/13/21: goal met STG Duration goal met Mixing Tank Operator Goal (LTG) pt will show improved lumbar mobility and tolerance for WB activities who will be able to stand with <25 degrees hip flexion. 01/07/22: goal progress 05/13/22: no further progress, most limited in standing tolerance. 06/24/22: improved but variable, some days worse than others. LTG Duration 08/06/22 Owestry Impairment pt scores 56 on Oswestry disability index score Short Term Goal (STG) pt will show improved overall mobility and strength by scoring <50 on Owestry 12/29/21: goal achieved. STG Duration goal met [facility]it[facility]iary Goal (LTG) Patient will score less then 40 on Oswestry disability index score as measure of decreased pain and improved activity tolerance 12/29/21: goal progress 04/01/22: had recent exacerbation of pain so not met 05/13/22: no change since last seen 06/24/22: 48% LTG Duration 08/06/22 Progress Towards Goals Progress Towards Goals Slow Progress due to Activity Tolerance,Slow Progress due to Medical Issues Assessment Summary Assessment Patient continues to benefit from aquatic PT and make progress toward goals. Recommend continued PT to help him continue to improve his function and safety and reach his PT goals. Physical Therapy Plan Frequency and Duration Frequency of Treatment 2x/Week Duration of treatment (weeks) 6 Plan of Care Start Date 06/24/22 Plan of Care End Date 08/06/22 Therapeutic Interventions Therapeutic Interventions Aquatic Therapy,Balance Training,Gait Training,Home Exercise Program,Joint Mobilizations,Manual Therapy, Neuromuscular Re-education, Patient/Caregiver Education, Self-Care/Home Management,Soft Tissue Mobilization,Taping, Therapeutic Activities, Therapeutic Exercises Modalities Cold Pack/Ice Massage,Electric Stimulation,Hot Packs, Infrared Therapy,Paraffin Bath ,Traction- Mechanical, Ultrasound Next Visit Focus/Plan Next Note Type Treatment Note Next Visit Plan Continue aquatic-based PT for strengthening, gait training, balance, core strengthening and stabilization, manual therapy techniques as needed for pain. Increase distance for front crawl stroke and add modified back crawl. Practice rolling and coming to standing when swimming in prone position. Emphasis on flutter kick as that is most difficult for him due to weakness. Work toward transition to independent aquatic exercies program. Plan of Care Dates Plan of Care Start Date 06/24/22 Plan of Care End Date 08/06/22 Electronically Signed by: Kateryna Shaffer, PT 06/25/22 [id number] If you are in agreement with this Plan of Care, please return a signed and dated copy. I have reviewed this Plan of Care and certify that the skilled therapy services above are required to meet the patient?s needs. Physician Signature Date Printed Name and Credentials Clinical Instructor Signature Printed Name and Credentials
--- NOTE | 2022-07-01 14:27 | PT.OTN ---
Current Diagnoses Spondylosis without myelopathy or radiculopathy, lumbar region (06/24/22) Physical Therapy Treatment Note PT-OP-A Visit Information Start: 07/15/21 16:54 Freq: Status: Active Protocol: Document 07/01/22 14:11 BRET (Rec: 07/01/22 14:27 LJ [id number]) Out-Patient Physical Therapy Visit Information Visit Information Visit Type Aquatic Treatment Note Visit Start Time 11:00 Visit Stop Time 11:45 Total Visit Minutes 45 Visit Number 97 Number of IS PROJECT MANAGER Visits 1 PT-OP-B Current Condition Start: 07/15/21 16:54 Freq: Status: Active Protocol: Document 07/15/21 16:54 HH (Rec: 07/15/21 17:27 HH [id number]) Current Condition History of Current Condition Onset Date 2019 Current Complaints chronic back pain, weakness, difficulty in walking History of Current Condition Toribio is a 71 yo returning patient here for his debilitating chronic LBP. He had L4-L5 microdisectomy last year for his L4L5 ruptured disc. He then had significant loss of mobility and strength who now uses 4WW for all mobility. He bascially cannot stand straight and lay in prone position. He walks with a flexed posture to alleviate his pain. He saw his surgeon 2 months ago and did not recommend further back surgery. He had a course of PT with me but only limited progress (able to use hiking sticks to walk at one point). He has been going to the pool for water walking, mobility exercises and has been helpful for his strnegth and balance. He would like to do PT again to participate both land and aquative therapy. Personal Factors Other Personal Factors That May Effect overweight Therapy/Recovery previous heart attack CABG placement chronic back pain PT-OP-C Subjective Start: 07/15/21 16:54 Freq: Status: Active Protocol: Document 07/01/22 14:11 BRET (Rec: 07/01/22 14:27 LJ [id number]) OP-PT Subjective Patient Comments Patient Comments Pt states he is interested in building his swimming skills as a form of exercise after discharge. PT-OP-D Balance Start: 07/15/21 16:54 Freq: Status: Active Protocol: Document 07/15/21 16:54 HH (Rec: 07/15/21 17:27 HH [id number]) Balance Tests Single Limb Standing Single Limb- Right unable Single Limb- Left unable PT-OP-G Mobility & Gait Start: 07/15/21 16:54 Freq: Status: Active Protocol: Document 07/15/21 16:54 (Rec: 07/15/21 17:27 [id number]) OP Mobility Evaluation Bed Mobility Supine to and from Sit log roll method OP Gait Assessment Gait Gait Assistance Required: Independent Assistive Devices Assistive Device 4 Wheeled Walker Gait Deviations General Gait Pattern Flexed Trunk Factors Limiting Gait Function Factors Limiting Gait Function Limited Range of Motion,Pain Comments Gait Comments pt walks wth a significant flexed posture with a hyperextended lumbar spine. He often has to stop to keep his walker close to his body. PT-OP-H Neuro Start: 07/15/21 16:54 Freq: Status: Active Protocol: Document 07/15/21 16:54 (Rec: 07/15/21 17:27 [id number]) Sensation Evaluation Gross Sensation Gross Sensation WNL Deep Tendon Reflex & Clonus Assessment Deep Tendon Reflex Bilateral Achilles Deep Tendon Reflex 2+ Normal Right Patellar Deep Tendon Reflex 2+ Normal Left Patellar Deep Tendon Reflex 0 Absent PT-OP-J Posture/Palpation/Skin Start: 07/15/21 16:54 Freq: Status: Active Protocol: Document 07/15/21 16:54 (Rec: 07/15/21 17:27 [id number]) Posture Evaluation Position Standing T-Spine Posture Increased Kyphosis L-Spine Posture Increased Lordosis,Flexed Hip Posture (L) Flexed,(R) Flexed Knee Posture (L) Excess Flexion,(R) Excess Flexion PT-OP-K Range of Motion Start: 07/15/21 16:54 Freq: Status: Active Protocol: Document 07/15/21 16:54 HH (Rec: 07/15/21 17:27 [id number]) Lumbar Spine Range of Motion Lumbar Spine Active Degrees Comments hip angle in standing (normal posture) = 28 degrees in flexion hip angle in standing ( extended posture) = 25 degrees in flexion, pain at low back. PT-OP-L Special Tests Start: 07/15/21 16:54 Freq: Status: Active Protocol: Document 07/15/21 16:54 (Rec: 07/15/21 17:27 [id number]) Special Tests Lumbar Spine Special Tests Slump Test Results -ve Straight Leg Raise Test Results -ve Comments no rad pain but extension pain with SLR on R. PT-OP-M Strength Start: 07/15/21 16:54 Freq: Status: Active Protocol: Document 07/15/21 16:54 HH (Rec: 07/15/21 17:27 HH [id number]) Hip Strength Hip Manual Muscle Testing Right Flexion (L2) 3+ Fair+ Extension (S1) 4- Good- Abduction 4- Good- Adduction 4- Good- Comments low back pain with SLR flexion Left Flexion (L2) 4- Good- Extension (S1) 4- Good- Abduction 4+ Good+ Adduction 4+ Good+ Knee Strength Knee Manual Muscle Testing Right Flexion (S2) 5 Normal Extension (L3) 5 Normal Left Flexion (S2) 5 Normal Extension (L3) 5 Normal Ankle/Foot Strength Ankle and Foot Manual Muscle Testing Right Dorsiflexion (L4) 5 Normal Plantarflexion (S1) 5 Normal Left Dorsiflexion (L4) 5 Normal Plantarflexion (S1) 5 Normal PT-OP-Q Treatments Start: 07/15/21 16:54 Freq: Status: Active Protocol: Document 02/24/22 10:37 SAK (Rec: 02/24/22 11:15 SAK [id number]) Cardio Equipment Recumbent Stepper (Sci-Fit) Duration (Minutes) 7 Resistance 1 Seat Position 14 Other cues for neutral LE alignment, core stab Treadmill Duration (Minutes) 2 Speed 1.7 mph Incline 0 Other cues for upright posture, heavy use of UE Gym Equipment Sport Cord green Exercise Details fwd Cord/Resistance green Reps/Duration 10x Comments trekking pole Therapeutic Exercises Supine Exercises bridge Reps/Minutes 10x Sitting Exercises seated hip flex/rectus ab hali Reps/Minutes 10x Comments hands on thighs isometric Sitting Exercise Name core stab Comments emily hands on thighs, opp hand on thigh Standing Exercises shoulder extension Equipment Used L1 TB Reps/Minutes 10x Comments cues for neutral posture and core activation opp UE/LE lift Reps/Minutes 10x Comments UE support on wall, core activation PT-OP-R Modalities Start: 07/15/21 16:54 Freq: Status: Active Protocol: Document 02/24/22 10:37 SAK (Rec: 02/24/22 17:47 SAK [id number]) Hot Pack/Cold Pack Treatment MHP LS Location B LS Patient Position Hooklying Comments strap around distal thighs PT-OP-S Aquatic Treatment Start: 07/15/21 16:54 Freq: Status: Active Protocol: Document 07/01/22 14:11 BRET (Rec: 07/01/22 14:27 [id number]) Aquatics Treatment Pool Entry/Exit Pool Entry/Exit Method Stairs Assistance Independent Water Walking Sideways Water Level Chest Level Walking Equipment Ankle Floats Comments lg steps Backwards Water Level Chest Level Walking Equipment Ankle Floats Forwards Water Level Chest Level Walking Equipment Ankle Floats Comments quick steps for 2 laps Swim Strokes underwater breaststroke Equipment Fins Laps/Duration 15M x2 breathhold Backstroke Equipment Flotation Belt Laps/Duration 30m x 2 Comments viejas backstroke Crawl Equipment Fins Other Equipment Used belt Laps/Duration 6 x30M Comments able to side breathe, rotate to back kick on back Equipment Fins,Noodle Laps/Duration 15M x4 Comments L sit position for core modified breaststroke Other Equipment Used belt Laps/Duration 15M x4 Comments difficulty lifting head to breath d/t lack of back extension PT-OP-T Assessment and Plan Start: 07/15/21 16:54 Freq: Status: Active Protocol: Document 07/01/22 14:11 BRET (Rec: 07/01/22 14:27 [id number]) Physical Therapy Assessment Rehab Potential Rehabilitation Potential Fair Evaluation Complexity Number of Personal Factors/Comorbidities 3 or More Number of Body Systems Impaired 3 Clinical Presentation at Evaluation Stable Impairments Impairments Activity Tolerance,Balance, Functional Activities, Functional Mobility,Gait,Pain, Posture,ROM,Soft Tissue Mobility,Strength,Transfers Goals HEP Impairment lacking HEP and independence in aquatic exercise program Shelter Goal (LTG) Patient to be independent and compliant with HEP and aquatic exercise program. LTG Duration 08/06/22 weakness Impairment LE and core muscle weakness limiting function Front Office Supervisor Goal (LTG) Patient will test at least 4+/ 5 all LE and trunk muscle groups to allow him to return to prior level of function. Will be independent and compliant with progressive HEP and aquatic exercise program. 04/01/22: goal progress, continue to progress his HEP both on land and in the pool. Patient has had limited PT visits past couple months but has remained compliant with current program and motivated to progress and make further gains. 05/13/22: no change 06/24/22: good goal progress with strength improved to 4/5 LE's 4-/5 trunk LTG Duration 08/06/22 balance Impairment diminished balance scoring in moderate fall risk category Shelter Goal (LTG) Improve balance with patient testing in low fall risk category on Colon Balance test and TUG test for improved safety and decreased risk of injury 04/01/22: patient tests in moderate fall risk category 05/14/22: still mod risk category 06/24/22: improved but stil in mod fall risk category LTG Duration 08/06/22 walk Impairment pt uses 4ww for all gait Short Term Goal (STG) pt will be able to walk with 2 hiking poles within home distance 10/13/21: goal met STG Duration goal met Front Office Supervisor Goal (LTG) pt will be able to walk with 2 hiking poles at home and community 10/13/21: goal met at home, still mostly uses 4WW in community 01/07/22: patient able to ambulate with trekking poles but for only short distance community ambulation and with exess forward trunk flexion. Updated goal: Patient will be able to ambulate safely in the home without assistive device and for 15 minutes outdoors/ community with walker improved postural alignment 04/01/22: recently moved back to using walker due to increase in back pain, but attempting to move back to using trekking poles. 05/13: using cane or trekking poles again LTG Duration 08/06/22 hip angle Impairment pt has a 28 degrees hip flexion angle in standing Short Term Goal (STG) pt will show improved lumbar mobility and tolerance for WB activities will be able to stand with <25 degrees hip flexion. 10/13/21: goal met STG Duration goal met Shelter Goal (LTG) pt will show improved lumbar mobility and tolerance for WB activities who will be able to stand with <25 degrees hip flexion. 01/07/22: goal progress 05/13/22: no further progress, most limited in standing tolerance. 06/24/22: improved but variable, some days worse than others. LTG Duration 08/06/22 Owestry Impairment pt scores 56 on Oswestry disability index score Short Term Goal (STG) pt will show improved overall mobility and strength by scoring <50 on Owestry 12/29/21: goal achieved. STG Duration goal met Shelter Goal (LTG) Patient will score less then 40 on Oswestry disability index score as measure of decreased pain and improved activity tolerance 12/29/21: goal progress 04/01/22: had recent exacerbation of pain so not met 05/13/22: no change since last seen 06/24/22: 48% LTG Duration 08/06/22 Progress Towards Goals Progress Towards Goals Slow Progress due to Activity Tolerance,Slow Progress due to Medical Issues Assessment Summary Assessment Pt wore goggles this session. Front crawl stroke pt able to side breathe on left side and complete 15M at a time. Still has difficulty with standing from prone position however when swimming without fins he is more successful. Backstroke with flutter kick uncomfortable but pt is able to perform inverted breaststroke kick (elementary backstroke) and right himself at the wall. Pt is making good progress with modified swimming strokes. 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 Physical Therapy Plan Frequency and Duration Frequency of Treatment 2x/Week Duration of treatment (weeks) 6 Plan of Care Start Date 06/24/22 Plan of Care End Date 08/06/22 Therapeutic Interventions Therapeutic Interventions Aquatic Therapy,Balance Training,Gait Training,Home Exercise Program,Joint Mobilizations,Manual Therapy, Neuromuscular Re-education, Patient/Caregiver Education, Self-Care/Home Management,Soft Tissue Mobilization,Taping, Therapeutic Activities, Therapeutic Exercises Modalities Cold Pack/Ice Massage,Electric Stimulation,Hot Packs, Infrared Therapy,Paraffin Bath ,Traction- Mechanical, Ultrasound Next Visit Focus/Plan Next Note Type Treatment Note Next Visit Plan Continue aquatic therapy focusing on progressing modified swim strokes for independent HEP. Progress distance and tolerance for aerobic exercise
--- NOTE | 2022-07-22 17:37 | PT.OTN ---
Current Diagnoses Spondylosis without myelopathy or radiculopathy, lumbar region (07/22/22) Physical Therapy Treatment Note PT-OP-A Visit Information Start: 07/15/21 16:54 Freq: Status: Active Protocol: Document 07/22/22 17:23 SAK (Rec: 07/22/22 17:33 [facility] [id number]) Out-Patient Physical Therapy Visit Information Visit Information Visit Type Aquatic Treatment Note Visit Start Time 11:00 Visit Stop Time 11:45 Total Visit Minutes 45 Visit Number 97 Number of QUALITY COMPLIANCE MANAGER Visits 0 PT-OP-B Current Condition Start: 07/15/21 16:54 Freq: Status: Active Protocol: Document 07/15/21 16:54 HH (Rec: 07/15/21 17:27 HH [id number]) Current Condition History of Current Condition Onset Date 2019 Current Complaints chronic back pain, weakness, difficulty in walking History of Current Condition Toribio is a 71 yo returning patient here for his debilitating chronic LBP. He had L4-L5 microdisectomy last year for his L4L5 ruptured disc. He then had significant loss of mobility and strength who now uses 4WW for all mobility. He bascially cannot stand straight and lay in prone position. He walks with a flexed posture to alleviate his pain. He saw his surgeon 2 months ago and did not recommend further back surgery. He had a course of PT with me but only limited progress (able to use hiking sticks to walk at one point). He has been going to the pool for water walking, mobility exercises and has been helpful for his strnegth and balance. He would like to do PT again to participate both land and aquative therapy. Personal Factors Other Personal Factors That May Effect overweight Therapy/Recovery previous heart attack CABG placement chronic back pain PT-OP-C Subjective Start: 07/15/21 16:54 Freq: Status: Active Protocol: Document 07/22/22 17:23 [facility] (Rec: 07/22/22 17:37 [facility] [id number]) OP-PT Subjective Patient Comments Patient Comments No new c/o, feels he is getting stronger. PT-OP-D Balance Start: 07/15/21 16:54 Freq: Status: Active Protocol: Document 07/15/21 16:54 HH (Rec: 07/15/21 17:27 HH [id number]) Balance Tests Single Limb Standing Single Limb- Right unable Single Limb- Left unable PT-OP-G Mobility & Gait Start: 07/15/21 16:54 Freq: Status: Active Protocol: Document 07/15/21 16:54 (Rec: 07/15/21 17:27 [id number]) OP Mobility Evaluation Bed Mobility Supine to and from Sit log roll method OP Gait Assessment Gait Gait Assistance Required: Independent Assistive Devices Assistive Device 4 Wheeled Walker Gait Deviations General Gait Pattern Flexed Trunk Factors Limiting Gait Function Factors Limiting Gait Function Limited Range of Motion,Pain Comments Gait Comments pt walks wth a significant flexed posture with a hyperextended lumbar spine. He often has to stop to keep his walker close to his body. PT-OP-H Neuro Start: 07/15/21 16:54 Freq: Status: Active Protocol: Document 07/15/21 16:54 HH (Rec: 07/15/21 17:27 [id number]) Sensation Evaluation Gross Sensation Gross Sensation WNL Deep Tendon Reflex & Clonus Assessment Deep Tendon Reflex Bilateral Achilles Deep Tendon Reflex 2+ Normal Right Patellar Deep Tendon Reflex 2+ Normal Left Patellar Deep Tendon Reflex 0 Absent PT-OP-J Posture/Palpation/Skin Start: 07/15/21 16:54 Freq: Status: Active Protocol: Document 07/15/21 16:54 HH (Rec: 07/15/21 17:27 [id number]) Posture Evaluation Position Standing T-Spine Posture Increased Kyphosis L-Spine Posture Increased Lordosis,Flexed Hip Posture (L) Flexed,(R) Flexed Knee Posture (L) Excess Flexion,(R) Excess Flexion PT-OP-K Range of Motion Start: 07/15/21 16:54 Freq: Status: Active Protocol: Document 07/15/21 16:54 HH (Rec: 07/15/21 17:27 [id number]) Lumbar Spine Range of Motion Lumbar Spine Active Degrees Comments hip angle in standing (normal posture) = 28 degrees in flexion hip angle in standing ( extended posture) = 25 degrees in flexion, pain at low back. PT-OP-L Special Tests Start: 07/15/21 16:54 Freq: Status: Active Protocol: Document 07/15/21 16:54 HH (Rec: 07/15/21 17:27 [id number]) Special Tests Lumbar Spine Special Tests Slump Test Results -ve Straight Leg Raise Test Results -ve Comments no rad pain but extension pain with SLR on R. PT-OP-M Strength Start: 07/15/21 16:54 Freq: Status: Active Protocol: Document 07/15/21 16:54 (Rec: 07/15/21 17:27 HH [id number]) Hip Strength Hip Manual Muscle Testing Right Flexion (L2) 3+ Fair+ Extension (S1) 4- Good- Abduction 4- Good- Adduction 4- Good- Comments low back pain with SLR flexion Left Flexion (L2) 4- Good- Extension (S1) 4- Good- Abduction 4+ Good+ Adduction 4+ Good+ Knee Strength Knee Manual Muscle Testing Right Flexion (S2) 5 Normal Extension (L3) 5 Normal Left Flexion (S2) 5 Normal Extension (L3) 5 Normal Ankle/Foot Strength Ankle and Foot Manual Muscle Testing Right Dorsiflexion (L4) 5 Normal Plantarflexion (S1) 5 Normal Left Dorsiflexion (L4) 5 Normal Plantarflexion (S1) 5 Normal PT-OP-Q Treatments Start: 07/15/21 16:54 Freq: Status: Active Protocol: Document 02/24/22 10:37 SAK (Rec: 02/24/22 11:15 SAK [id number]) Cardio Equipment Recumbent Stepper (Sci-Fit) Duration (Minutes) 7 Resistance 1 Seat Position 14 Other cues for neutral LE alignment, core stab Treadmill Duration (Minutes) 2 Speed 1.7 mph Incline 0 Other cues for upright posture, heavy use of UE Gym Equipment Sport Cord green Exercise Details fwd Cord/Resistance green Reps/Duration 10x Comments trekking pole Therapeutic Exercises Supine Exercises bridge Reps/Minutes 10x Sitting Exercises seated hip flex/rectus ab hali Reps/Minutes 10x Comments hands on thighs isometric Sitting Exercise Name core stab Comments emily hands on thighs, opp hand on thigh Standing Exercises shoulder extension Equipment Used L1 TB Reps/Minutes 10x Comments cues for neutral posture and core activation opp UE/LE lift Reps/Minutes 10x Comments UE support on wall, core activation PT-OP-R Modalities Start: 07/15/21 16:54 Freq: Status: Active Protocol: Document 02/24/22 10:37 SAK (Rec: 02/24/22 17:47 SAK [id number]) Hot Pack/Cold Pack Treatment MHP LS Location B LS Patient Position Hooklying Comments strap around distal thighs PT-OP-S Aquatic Treatment Start: 07/15/21 16:54 Freq: Status: Active Protocol: Document 07/22/22 17:23 SAK (Rec: 07/22/22 17:37 SAK [id number]) Aquatics Treatment Water Walking jog Water Level Chest Level Level of Assistance Standby Assistance,Verbal Cues forward and side walk with swim fins Water Level Chest Level Walking Equipment swim fins Comments 2 laps forward and soldier october only stop start jogging Water Level Chest Level Walking Equipment Ankle Floats Level of Assistance Verbal Cues Comments 2 laps Morganza March Water Level Chest Level Walking Equipment Ankle Floats Marching Water Level Chest Level Walking Equipment Ankle Floats Level of Assistance Verbal Cues Comments reaching opp side Backwards Water Level Chest Level Walking Equipment Ankle Floats Comments inc speed Forwards Water Level Chest Level Walking Equipment Ankle Floats Comments quick steps/jog for 2 laps Lower Extremity Stretches DKTC/SKTC Details SKTC Body Position Standing Water Level Chest Level Reps/Duration 2x30 quads, HS, hip flexors Equipment Small Noodle Reps/Duration 2x30 each Comments gastrocs Upper Extremity Exercises rows Body Position Standing Water Level Chest Level Equipment cords Reps/Duration 30 Spinal Exercises tiltboard sit Reps/Duration 3 min Comments cues for minimal use of UE's and LE's paloff press Body Position Standing Water Level Waist Level Equipment cords Reps/Duration 12 B Comments for glute strengthening and core stability trunk rotation Body Position Standing Water Level Chest Level Reps/Duration 10 b Swim Strokes underwater breaststroke Equipment Fins Laps/Duration 15M x2 breathhold flutter kick Equipment Flotation Belt,Kickboard Laps/Duration 15 m x 4 Comments supine and prone Other water recovery Details supine to stand Equipment ankle floats Reps/Duration 4x PT-OP-T Assessment and Plan Start: 07/15/21 16:54 Freq: Status: Active Protocol: Document 07/22/22 17:23 KIKI (Rec: 07/22/22 17:33 [facility] [id number]) Physical Therapy Assessment Goals HEP Impairment lacking HEP and independence in aquatic exercise program Manager Studio Goal (LTG) Patient to be independent and compliant with HEP and aquatic exercise program. LTG Duration 08/06/22 weakness Impairment LE and core muscle weakness limiting function Manager [employer] Goal (LTG) Patient will test at least 4+/ 5 all LE and trunk muscle groups to allow him to return to prior level of function. Will be independent and compliant with progressive HEP and aquatic exercise program. 04/01/22: goal progress, continue to progress his HEP both on land and in the pool. Patient has had limited PT visits past couple months but has remained compliant with current program and motivated to progress and make further gains. 05/13/22: no change 06/24/22: good goal progress with strength improved to 4/5 LE's 4-/5 trunk LTG Duration 08/06/22 balance Impairment diminished balance scoring in moderate fall risk category [employer] Goal (LTG) Improve balance with patient testing in low fall risk category on Colon Balance test and TUG test for improved safety and decreased risk of injury 04/01/22: patient tests in moderate fall risk category 05/14/22: still mod risk category 06/24/22: improved but stil in mod fall risk category LTG Duration 08/06/22 walk Impairment pt uses 4ww for all gait Short Term Goal (STG) pt will be able to walk with 2 hiking poles within home distance 10/13/21: goal met STG Duration goal met [facility] Goal (LTG) pt will be able to walk with 2 hiking poles at home and community 10/13/21: goal met at home, still mostly uses 4WW in community 01/07/22: patient able to ambulate with trekking poles but for only short distance community ambulation and with exess forward trunk flexion. Updated goal: Patient will be able to ambulate safely in the home without assistive device and for 15 minutes outdoors/ community with walker improved postural alignment 04/01/22: recently moved back to using walker due to increase in back pain, but attempting to move back to using trekking poles. 05/13: using cane or trekking poles again LTG Duration 08/06/22 hip angle Impairment pt has a 28 degrees hip flexion angle in standing Short Term Goal (STG) pt will show improved lumbar mobility and tolerance for WB activities will be able to stand with <25 degrees hip flexion. 10/13/21: goal met STG Duration goal met Manager Studio Goal (LTG) pt will show improved lumbar mobility and tolerance for WB activities who will be able to stand with <25 degrees hip flexion. 01/07/22: goal progress 05/13/22: no further progress, most limited in standing tolerance. 06/24/22: improved but variable, some days worse than others. LTG Duration 08/06/22 Owestry Impairment pt scores 56 on Oswestry disability index score Short Term Goal (STG) pt will show improved overall mobility and strength by scoring <50 on Owestry 12/29/21: goal achieved. STG Duration goal met [facility] Goal (LTG) Patient will score less then 40 on Oswestry disability index score as measure of decreased pain and improved activity tolerance 12/29/21: goal progress 04/01/22: had recent exacerbation of pain so not met 05/13/22: no change since last seen 06/24/22: 48% LTG Duration 08/06/22 Progress Towards Goals Progress Towards Goals Slow Progress due to Activity Tolerance,Slow Progress due to Medical Issues Assessment Summary Assessment Patient has much difficulty with propulsion in prone with LE's only. Challenged by balance wearing ankle floats, 2x needed assistance or support of wall to regain balance during walking with floats. Also difficult regaining balance from prone swim without assistance or wall support. Physical Therapy Plan Frequency and Duration Frequency of Treatment 2x/Week Duration of treatment (weeks) 6 Plan of Care Start Date 06/24/22 Plan of Care End Date 08/06/22 Therapeutic Interventions Therapeutic Interventions Aquatic Therapy,Balance Training,Gait Training,Home Exercise Program,Joint Mobilizations,Manual Therapy, Neuromuscular Re-education, Patient/Caregiver Education, Self-Care/Home Management,Soft Tissue Mobilization,Taping, Therapeutic Activities, Therapeutic Exercises Modalities Cold Pack/Ice Massage,Electric Stimulation,Hot Packs, Infrared Therapy,Paraffin Bath ,Traction- Mechanical, Ultrasound Next Visit Focus/Plan Next Note Type Treatment Note Next Visit Plan Continue aquatic therapy focusing on progressing modified swim strokes for independent HEP. Progress distance and tolerance for aerobic exercise
--- NOTE | 2022-08-05 15:29 | PT.OTN ---
Current Diagnoses Spondylosis without myelopathy or radiculopathy, lumbar region (08/05/22) Physical Therapy Treatment Note PT-OP-A Visit Information Start: 07/15/21 16:54 Freq: Status: Active Protocol: Document 08/05/22 15:09 LJ (Rec: 08/05/22 15:29 LJ [id number]) Out-Patient Physical Therapy Visit Information Visit Information Visit Type Aquatic Treatment Note Visit Start Time 12:30 Visit Stop Time 13:15 Total Visit Minutes 45 Visit Number 98 Number of STORE WORKER Visits 1 PT-OP-B Current Condition Start: 07/15/21 16:54 Freq: Status: Active Protocol: Document 07/15/21 16:54 HH (Rec: 07/15/21 17:27 HH [id number]) Current Condition History of Current Condition Onset Date 2019 Current Complaints chronic back pain, weakness, difficulty in walking History of Current Condition Toribio is a 71 yo returning patient here for his debilitating chronic LBP. He had L4-L5 microdisectomy last year for his L4L5 ruptured disc. He then had significant loss of mobility and strength who now uses 4WW for all mobility. He bascially cannot stand straight and lay in prone position. He walks with a flexed posture to alleviate his pain. He saw his surgeon 2 months ago and did not recommend further back surgery. He had a course of PT with me but only limited progress (able to use hiking sticks to walk at one point). He has been going to the pool for water walking, mobility exercises and has been helpful for his strnegth and balance. He would like to do PT again to participate both land and aquative therapy. Personal Factors Other Personal Factors That May Effect overweight Therapy/Recovery previous heart attack CABG placement chronic back pain PT-OP-C Subjective Start: 07/15/21 16:54 Freq: Status: Active Protocol: Document 08/05/22 15:09 LJ (Rec: 08/05/22 15:29 LJ [id number]) OP-PT Subjective Patient Comments Patient Comments No new c/o PT-OP-D Balance Start: 07/15/21 16:54 Freq: Status: Active Protocol: Document 07/15/21 16:54 HH (Rec: 07/15/21 17:27 HH [id number]) Balance Tests Single Limb Standing Single Limb- Right unable Single Limb- Left unable PT-OP-G Mobility & Gait Start: 07/15/21 16:54 Freq: Status: Active Protocol: Document 07/15/21 16:54 HH (Rec: 07/15/21 17:27 [id number]) OP Mobility Evaluation Bed Mobility Supine to and from Sit log roll method OP Gait Assessment Gait Gait Assistance Required: Independent Assistive Devices Assistive Device 4 Wheeled Walker Gait Deviations General Gait Pattern Flexed Trunk Factors Limiting Gait Function Factors Limiting Gait Function Limited Range of Motion,Pain Comments Gait Comments pt walks wth a significant flexed posture with a hyperextended lumbar spine. He often has to stop to keep his walker close to his body. PT-OP-H Neuro Start: 07/15/21 16:54 Freq: Status: Active Protocol: Document 07/15/21 16:54 HH (Rec: 07/15/21 17:27 [id number]) Sensation Evaluation Gross Sensation Gross Sensation WNL Deep Tendon Reflex & Clonus Assessment Deep Tendon Reflex Bilateral Achilles Deep Tendon Reflex 2+ Normal Right Patellar Deep Tendon Reflex 2+ Normal Left Patellar Deep Tendon Reflex 0 Absent PT-OP-J Posture/Palpation/Skin Start: 07/15/21 16:54 Freq: Status: Active Protocol: Document 07/15/21 16:54 HH (Rec: 07/15/21 17:27 [id number]) Posture Evaluation Position Standing T-Spine Posture Increased Kyphosis L-Spine Posture Increased Lordosis,Flexed Hip Posture (L) Flexed,(R) Flexed Knee Posture (L) Excess Flexion,(R) Excess Flexion PT-OP-K Range of Motion Start: 07/15/21 16:54 Freq: Status: Active Protocol: Document 07/15/21 16:54 HH (Rec: 07/15/21 17:27 [id number]) Lumbar Spine Range of Motion Lumbar Spine Active Degrees Comments hip angle in standing (normal posture) = 28 degrees in flexion hip angle in standing ( extended posture) = 25 degrees in flexion, pain at low back. PT-OP-L Special Tests Start: 07/15/21 16:54 Freq: Status: Active Protocol: Document 07/15/21 16:54 HH (Rec: 07/15/21 17:27 [id number]) Special Tests Lumbar Spine Special Tests Slump Test Results -ve Straight Leg Raise Test Results -ve Comments no rad pain but extension pain with SLR on R. PT-OP-M Strength Start: 07/15/21 16:54 Freq: Status: Active Protocol: Document 07/15/21 16:54 (Rec: 07/15/21 17:27 HH [id number]) Hip Strength Hip Manual Muscle Testing Right Flexion (L2) 3+ Fair+ Extension (S1) 4- Good- Abduction 4- Good- Adduction 4- Good- Comments low back pain with SLR flexion Left Flexion (L2) 4- Good- Extension (S1) 4- Good- Abduction 4+ Good+ Adduction 4+ Good+ Knee Strength Knee Manual Muscle Testing Right Flexion (S2) 5 Normal Extension (L3) 5 Normal Left Flexion (S2) 5 Normal Extension (L3) 5 Normal Ankle/Foot Strength Ankle and Foot Manual Muscle Testing Right Dorsiflexion (L4) 5 Normal Plantarflexion (S1) 5 Normal Left Dorsiflexion (L4) 5 Normal Plantarflexion (S1) 5 Normal PT-OP-Q Treatments Start: 07/15/21 16:54 Freq: Status: Active Protocol: Document 02/24/22 10:37 SAK (Rec: 02/24/22 11:15 SAK [id number]) Cardio Equipment Recumbent Stepper (Sci-Fit) Duration (Minutes) 7 Resistance 1 Seat Position 14 Other cues for neutral LE alignment, core stab Treadmill Duration (Minutes) 2 Speed 1.7 mph Incline 0 Other cues for upright posture, heavy use of UE Gym Equipment Sport Cord green Exercise Details fwd Cord/Resistance green Reps/Duration 10x Comments trekking pole Therapeutic Exercises Supine Exercises bridge Reps/Minutes 10x Sitting Exercises seated hip flex/rectus ab hali Reps/Minutes 10x Comments hands on thighs isometric Sitting Exercise Name core stab Comments emily hands on thighs, opp hand on thigh Standing Exercises shoulder extension Equipment Used L1 TB Reps/Minutes 10x Comments cues for neutral posture and core activation opp UE/LE lift Reps/Minutes 10x Comments UE support on wall, core activation PT-OP-R Modalities Start: 07/15/21 16:54 Freq: Status: Active Protocol: Document 02/24/22 10:37 SAK (Rec: 02/24/22 17:47 SAK [id number]) Hot Pack/Cold Pack Treatment MHP LS Location B LS Patient Position Hooklying Comments strap around distal thighs PT-OP-S Aquatic Treatment Start: 07/15/21 16:54 Freq: Status: Active Protocol: Document 08/05/22 15:09 BRET (Rec: 08/05/22 15:29 BRET [id number]) Aquatics Treatment Pool Entry/Exit Pool Entry/Exit Method Stairs Assistance Independent Water Walking jog Water Level Chest Level Walking Equipment Ankle Floats Level of Assistance Standby Assistance,Verbal Cues forward and side walk with swim fins Water Level Chest Level Walking Equipment Ankle Floats stop/start with direction change Water Level Chest Level Walking Equipment Ankle Floats Comments 4 min [place] March Water Level Chest Level Walking Equipment Ankle Floats Marching Water Level Chest Level Walking Equipment Ankle Floats Level of Assistance Verbal Cues Comments reaching opp side Sideways Water Level Chest Level Walking Equipment Ankle Floats Comments lg steps Backwards Water Level Chest Level Walking Equipment Ankle Floats Comments cues for upright posture Forwards Water Level Chest Level Walking Equipment Ankle Floats Comments quick steps/jog for 2 laps Lower Extremity Stretches quads, HS, hip flexors Equipment Small Noodle Reps/Duration 2x30 each Comments gastrocs Upper Extremity Exercises rows Body Position Standing Water Level Chest Level Equipment cords Reps/Duration 30x2 Spinal Exercises paloff press Body Position Standing Water Level Waist Level Equipment cords Reps/Duration 12 B Comments for glute strengthening and core stability trunk rotation Body Position Standing Water Level Chest Level Reps/Duration 2x15 B Balance SLS Water Level Chest Level Comments 4 cycles of clocks bilat step up on boxes Details forward and side Water Level Chest Level Equipment ankle floats Reps/Duration 10 B Comments slow motion to prevent plopping off STEP [place] Activities [place] Activities Bicycle,Bicycle Backwards, Cross Country,Hip Abduction/ Adduction Other Activities vertical flutter kick Equipment blue float, 2 noodles, Duration 10 Comments Pt unable to attain hip extension with all LE exercises in deep water. Trialed noodles which worked but pt felt he was falling backwards. He was able to use blue float with more success. Swim Strokes Backstroke Equipment Flotation Belt Laps/Duration 15M Crawl Equipment Flotation Belt Other Equipment Used belt Laps/Duration 4 x30M Comments able to side breathe, rotate to back, snorkle for 3 laps modified breaststroke Other Equipment Used belt, snorkle Laps/Duration 2x15M PT-OP-T Assessment and Plan Start: 07/15/21 16:54 Freq: Status: Active Protocol: Document 08/05/22 15:09 BRET (Rec: 08/05/22 15:29 BRET [id number]) Physical Therapy Assessment Rehab Potential Rehabilitation Potential Fair Evaluation Complexity Number of Personal Factors/Comorbidities 3 or More Number of Body Systems Impaired 3 Clinical Presentation at Evaluation Stable Impairments Impairments Activity Tolerance,Balance, Functional Activities, Functional Mobility,Gait,Pain, Posture,ROM,Soft Tissue Mobility,Strength,Transfers Goals HEP Impairment lacking HEP and independence in aquatic exercise program Skilled Nursing Goal (LTG) Patient to be independent and compliant with HEP and aquatic exercise program. 08/05/22:Goal reached, Pt is compliant x5days per week avg in going to pool and exercising for ~ 46-60 min LTG Duration 08/06/22 weakness Impairment LE and core muscle weakness limiting function [place] Hand Goal (LTG) Patient will test at least 4+/ 5 all LE and trunk muscle groups to allow him to return to prior level of function. Will be independent and compliant with progressive HEP and aquatic exercise program. 04/01/22: goal progress, continue to progress his HEP both on land and in the pool. Patient has had limited PT visits past couple months but has remained compliant with current program and motivated to progress and make further gains. 05/13/22: no change 06/24/22: good goal progress with strength improved to 4/5 LE's 4-/5 trunk LTG Duration 08/06/22 balance Impairment diminished balance scoring in moderate fall risk category Skilled Nursing Goal (LTG) Improve balance with patient testing in low fall risk category on Colon Balance test and TUG test for improved safety and decreased risk of injury 04/01/22: patient tests in moderate fall risk category 05/14/22: still mod risk category 06/24/22: improved but stil in mod fall risk category LTG Duration 08/06/22 walk Impairment pt uses 4ww for all gait Short Term Goal (STG) pt will be able to walk with 2 hiking poles within home distance 10/13/21: goal met STG Duration goal met Skilled Nursing Goal (LTG) pt will be able to walk with 2 hiking poles at home and community 10/13/21: goal met at home, still mostly uses 4WW in community 01/07/22: patient able to ambulate with trekking poles but for only short distance community ambulation and with exess forward trunk flexion. Updated goal: Patient will be able to ambulate safely in the home without assistive device and for 15 minutes outdoors/ community with walker improved postural alignment 04/01/22: recently moved back to using walker due to increase in back pain, but attempting to move back to using trekking poles. 05/13: using cane or trekking poles again LTG Duration 08/06/22 hip angle Impairment pt has a 28 degrees hip flexion angle in standing Short Term Goal (STG) pt will show improved lumbar mobility and tolerance for WB activities will be able to stand with <25 degrees hip flexion. 10/13/21: goal met STG Duration goal met Skilled Nursing Goal (LTG) pt will show improved lumbar mobility and tolerance for WB activities who will be able to stand with <25 degrees hip flexion. 01/07/22: goal progress 05/13/22: no further progress, most limited in standing tolerance. 06/24/22: improved but variable, some days worse than others. LTG Duration 08/06/22 [place] Impairment pt scores 56 on Oswestry disability index score Short Term Goal (STG) pt will show improved overall mobility and strength by scoring <50 on [place] 12/29/21: goal achieved. STG Duration goal met [place] Hand Goal (LTG) Patient will score less then 40 on Oswestry disability index score as measure of decreased pain and improved activity tolerance 12/29/21: goal progress 04/01/22: had recent exacerbation of pain so not met 05/13/22: no change since last seen 06/24/22: 48% LTG Duration 08/06/22 Progress Towards Goals Progress Towards Goals Slow Progress due to Activity Tolerance,Slow Progress due to Medical Issues Assessment Summary Assessment Pt is very compliant with attending the pool for exercise. His swimming abilities have improved with using snorkle with breaststroke and occasionally with front crawl stroke. He is appropriate for discharge to attend pool independently and exercise. Physical Therapy Plan Frequency and Duration Frequency of Treatment 2x/Week Duration of treatment (weeks) 6 Plan of Care Start Date 06/24/22 Plan of Care End Date 08/06/22 Therapeutic Interventions Therapeutic Interventions Aquatic Therapy,Balance Training,Gait Training,Home Exercise Program,Joint Mobilizations,Manual Therapy, Neuromuscular Re-education, Patient/Caregiver Education, Self-Care/Home Management,Soft Tissue Mobilization,Taping, Therapeutic Activities, Therapeutic Exercises Modalities Cold Pack/Ice Massage,Electric Stimulation,Hot Packs, Infrared Therapy,Paraffin Bath ,Traction- Mechanical, Ultrasound Next Visit Focus/Plan Next Note Type Treatment Note Next Visit Plan DC pt for independent aquatic HEP
--- NOTE | 2022-08-20 14:29 | PT.OPDS ---
Current Diagnoses Spondylosis without myelopathy or radiculopathy, lumbar region (08/05/22) Visit Care Team Role Provider Type Benjamin Aguilera DO Primary Care Provider Physician Specialty: Family Practice Address: [address] [place] [address], [id number] Email: [email or web address] Robin Lee MD Family Provider Physician Specialty: Internal Medicine Address: [address] [place] [address], [id number] Email: [email or web address] AMADA Knox Attending Provider Non-Staff Referring Provider Specialty: Medical Address: [address] [place] [address], [address], [address] Email: Visit Number Visit Number 98 Discharge Summary PT-OP-B Current Condition Start: 07/15/21 16:54 Freq: Status: Active Protocol: Document 07/15/21 16:54 HH (Rec: 07/15/21 17:27 [id number]) Current Condition History of Current Condition Onset Date 2019 Current Complaints chronic back pain, weakness, difficulty in walking History of Current Condition Toribio is a 71 yo returning patient here for his debilitating chronic LBP. He had L4-L5 microdisectomy last year for his L4L5 ruptured disc. He then had significant loss of mobility and strength who now uses 4WW for all mobility. He bascially cannot stand straight and lay in prone position. He walks with a flexed posture to alleviate his pain. He saw his surgeon 2 months ago and did not recommend further back surgery. He had a course of PT with me but only limited progress (able to use hiking sticks to walk at one point). He has been going to the pool for water walking, mobility exercises and has been helpful for his strnegth and balance. He would like to do PT again to participate both land and aquative therapy. Personal Factors Other Personal Factors That May Effect overweight Therapy/Recovery previous heart attack CABG placement chronic back pain PT-OP-C Subjective Start: 07/15/21 16:54 Freq: Status: Active Protocol: Document 08/05/22 15:09 LJ (Rec: 08/05/22 15:29 LJ [id number]) OP-PT Subjective Patient Comments Patient Comments No new c/o PT-OP-D Balance Start: 07/15/21 16:54 Freq: Status: Active Protocol: Document 07/15/21 16:54 HH (Rec: 07/15/21 17:27 HH [id number]) Balance Tests Single Limb Standing Single Limb- Right unable Single Limb- Left unable PT-OP-G Mobility & Gait Start: 07/15/21 16:54 Freq: Status: Active Protocol: Document 07/15/21 16:54 HH (Rec: 07/15/21 17:27 [id number]) OP Mobility Evaluation Bed Mobility Supine to and from Sit log roll method OP Gait Assessment Gait Gait Assistance Required: Independent Assistive Devices Assistive Device 4 Wheeled Walker Gait Deviations General Gait Pattern Flexed Trunk Factors Limiting Gait Function Factors Limiting Gait Function Limited Range of Motion,Pain Comments Gait Comments pt walks wth a significant flexed posture with a hyperextended lumbar spine. He often has to stop to keep his walker close to his body. PT-OP-H Neuro Start: 07/15/21 16:54 Freq: Status: Active Protocol: Document 07/15/21 16:54 HH (Rec: 07/15/21 17:27 [id number]) Sensation Evaluation Gross Sensation Gross Sensation WNL Deep Tendon Reflex & Clonus Assessment Deep Tendon Reflex Bilateral Achilles Deep Tendon Reflex 2+ Normal Right Patellar Deep Tendon Reflex 2+ Normal Left Patellar Deep Tendon Reflex 0 Absent PT-OP-J Posture/Palpation/Skin Start: 07/15/21 16:54 Freq: Status: Active Protocol: Document 07/15/21 16:54 HH (Rec: 07/15/21 17:27 [id number]) Posture Evaluation Position Standing T-Spine Posture Increased Kyphosis L-Spine Posture Increased Lordosis,Flexed Hip Posture (L) Flexed,(R) Flexed Knee Posture (L) Excess Flexion,(R) Excess Flexion PT-OP-K Range of Motion Start: 07/15/21 16:54 Freq: Status: Active Protocol: Document 07/15/21 16:54 HH (Rec: 07/15/21 17:27 HH [id number]) Lumbar Spine Range of Motion Lumbar Spine Active Degrees Comments hip angle in standing (normal posture) = 28 degrees in flexion hip angle in standing ( extended posture) = 25 degrees in flexion, pain at low back. PT-OP-L Special Tests Start: 07/15/21 16:54 Freq: Status: Active Protocol: Document 07/15/21 16:54 (Rec: 07/15/21 17:27 HH [id number]) Special Tests Lumbar Spine Special Tests Slump Test Results -ve Straight Leg Raise Test Results -ve Comments no rad pain but extension pain with SLR on R. PT-OP-M Strength Start: 07/15/21 16:54 Freq: Status: Active Protocol: Document 07/15/21 16:54 (Rec: 07/15/21 17:27 HH [id number]) Hip Strength Hip Manual Muscle Testing Right Flexion (L2) 3+ Fair+ Extension (S1) 4- Good- Abduction 4- Good- Adduction 4- Good- Comments low back pain with SLR flexion Left Flexion (L2) 4- Good- Extension (S1) 4- Good- Abduction 4+ Good+ Adduction 4+ Good+ Knee Strength Knee Manual Muscle Testing Right Flexion (S2) 5 Normal Extension (L3) 5 Normal Left Flexion (S2) 5 Normal Extension (L3) 5 Normal Ankle/Foot Strength Ankle and Foot Manual Muscle Testing Right Dorsiflexion (L4) 5 Normal Plantarflexion (S1) 5 Normal Left Dorsiflexion (L4) 5 Normal Plantarflexion (S1) 5 Normal PT-OP-T Assessment and Plan Start: 07/15/21 16:54 Freq: Status: Active Protocol: Document 08/20/22 14:29 [facility] (Rec: 08/20/22 14:29 [facility] [id number]) Physical Therapy Assessment Assessment Summary Assessment Pt is very compliant with attending the pool for exercise. His swimming abilities have improved with using snorkle with breaststroke and occasionally with front crawl stroke. He is appropriate for discharge to attend pool independently and exercise. Physical Therapy Plan Discharge Physical Therapy Discharge Reasons Plateau in Progress Next Visit Focus/Plan Next Note Type Treatment Note Next Visit Plan DC pt for independent aquatic HEP
== END 2022-08-25 09:24 | disposition home or self-care (01) ==
LOC: PHYS 12:30
PROVIDERS: Family Provider Internal Medicine; PCP Family Medicine; Referring Provider Nurse Practitioner Acute Care; Visit Provider Nurse Practitioner Acute Care
DX: M47.816 Spondylosis without myelopathy or radiculopathy, lumbar region (principal)
CPT/HCPCS: 97110; 97112; 97113; 97163; 97535

== ENCOUNTER → 2022-09-11 09:04 | Outpatient (CLI) | payer MEDICARE, OTHER, SELFPAY ==
[2022-09-11 10:49] LABS: Cholesterol 137 mg/dL (140-199); HDL Cholesterol 42 mg/dL (40-60); LDL Cholesterol Calculated 60 mg/dL (<100); Triglycerides 174 mg/dL (35-150)
== END ==
PROVIDERS: Family Provider Internal Medicine; PCP Family Medicine; Referring Provider Internal Medicine Cardiovascular Disease; Visit Provider Internal Medicine Cardiovascular Disease
DX: E78.5 Hyperlipidemia, unspecified (principal); I48.0 Paroxysmal atrial fibrillation
CPT/HCPCS: 36415; 80061

== ENCOUNTER → 2022-09-25 10:27 | Outpatient (CLI) | payer MEDICARE, OTHER, SELFPAY ==
[2022-09-25 11:19] LABS: Add Manual Diff / Slide Review NO; Basophils Absolute Auto 100 /uL (0-100); Basophils Percent Auto 0.9 % (0-2); Eosinophils Absolute Auto 300 /uL (0-450); Eosinophils Percent Auto 3.6 % (2-4); Hematocrit 44.9 % (41-53); Hemoglobin 15.1 g/dL (13.5-17.5); Lymphocytes Absolute Auto 2500 /uL (1100-4500); Lymphocytes Percent Auto 29.9 % (25-40); Mean Corpuscular HGB Conc 33.6 % (30-36); Mean Corpuscular Hemoglobin 29.6 PG (26-34); Mean Corpuscular Volume 88.1 fL (80-100); Monocytes Absolute Auto 800 /uL (0-900); Monocytes Percent Auto 9.9 % (3-14); Neutrophils Absolute Auto 4600 /uL (1500-7000); Neutrophils Percent Auto 55.7 % (50-75); Platelet Count 186 X10^3/uL (150-400); Red Cell Distribution Width 14.7 % (11.6-14.8); White Blood Cell Count 8.3 X10^3/uL (4.5-11.0)
[2022-09-25 11:41] LABS: Alanine Aminotransferase 28 IU/L (<50); Albumin 4.1 g/dL (3.5-5.0); Albumin Globulin Ratio 1.2 (1.0-2.8); Alkaline Phosphatase 94 U/L (38-126); Aspartate Aminotransferase 29 IU/L (17-59); BUN Creatinine Ratio 21.7 (6-22); Bilirubin Total 0.5 mg/dL (0.2-1.3); Blood Urea Nitrogen 30 mg/dL (9-20); Calcium 9.5 mg/dL (8.4-10.2); Carbon Dioxide 26 mmol/L (22-32); Chloride 104 mmol/L (98-107); Estimated Glomerular Filt Rate 54 mL/min (>60); Globulin 3.4 g/dL (1.7-4.1); Glucose 98 mg/dL (80-110); HEMOLYSIS < 15 (0-50); Potassium 4.3 mmol/L (3.4-5.1); Sodium 140 mmol/L (137-145); Total Protein 7.5 g/dL (6.3-8.2); Uric Acid 6.7 mg/dL (3.5-8.5)
[2022-09-25 12:11] LABS: Prostate Specific Antigen 2.67 ng/mL (0.10-4.00)
[2022-09-25 12:17] LABS: TSH w/ Reflex to FT4 1.65 uIU/mL (0.47-4.68)
== END ==
PROVIDERS: Family Provider Internal Medicine; PCP Family Medicine; Referring Provider Family Medicine; Visit Provider Family Medicine
DX: I25.10 Atherosclerotic heart disease of native coronary artery without angina pectoris (principal); N40.0 Benign prostatic hyperplasia without lower urinary tract symptoms
CPT/HCPCS: 36415; 80053; 84153; 84443; 84550; 85025